=== PATIENT | female | born 1955 | race Caucasian/White ===

== ENCOUNTER 2021-09-08 14:50 | Emergency (ER) | payer MEDICARE, OTHER, SELFPAY ==
--- NOTE | ~2021-09-08 | XR_ITS ---
EXAMINATION: XR knee RT min 4V DATE: 09/08/2021 15:25 INDICATION: Right knee pain. Injury 6 days ago. TECHNIQUE: 4 views of right knee were obtained. COMPARISON: Right knee radiographs 02/09/2019 FINDINGS: Bone alignment is normal. No fracture. There is mild tricompartmental osteoarthritis. No kn ee joint effusion. IMPRESSION: 1. Mild right knee osteoarthritis. Reviewed, dictated and finalized at location A.
--- NOTE | 2021-09-08 14:59 | ED.LOWEXIN ---
HPI - Extremity Injury (Lower) General Stated Complaint: bilateral knee injury Time Seen by Provider: 09/08/21 15:06 Source: patient Mode of arrival: ambulatory Limitations: no limitations History of Present Illness HPI Narrative: Ms. Chatterjee is a 66-year-old female patient presenting to the clinic today with complaints of right knee pain/injury. She reports that she fell and landed on her bilateral knees 6 days ago. Reports she has a lot of bruising and swelling to the over the right knee. She is currently taking a blood thinner. Related Data Home Medications Medication Instructions Recorded Confirmed apixaban 5 mg tablet (Eliquis) 5 mg PO BID 09/08/21 09/08/21 atorvastatin 80 mg tablet 80 mg PO HS 09/08/21 09/08/21 celecoxib 200 mg capsule (Celebrex) 200 mg PO BID 09/08/21 09/08/21 estradiol 1 mg tablet 0.5 mg PO DAILY 09/08/21 09/08/21 fludrocortisone 0.1 mg tablet 0.1 mg PO BID 09/08/21 09/08/21 furosemide 20 mg tablet (Lasix) 20 mg PO DAILY 09/08/21 09/08/21 lisinopril 40 mg tablet 40 mg PO DAILY 09/08/21 09/08/21 magnesium 200 mg tablet 400 mg PO DAILY 09/08/21 09/08/21 meclizine 25 mg tablet 25 mg PO TID 09/08/21 09/08/21 omeprazole 40 mg capsule,delayed 40 mg PO DAILY 09/08/21 09/08/21 release potassium chloride 20 mEq 20 meq PO DAILY 09/08/21 09/08/21 tablet,extended release sotalol 80 mg tablet 40 mg BID 09/08/21 09/08/21 spironolactone 25 mg tablet 25 mg DAILY 09/08/21 09/08/21 tramadol 50 mg tablet (Ultram) 50 mg PO BID 09/08/21 09/08/21 vibegron 75 mg tablet (Gemtesa) 75 tablet DAILY 09/08/21 09/08/21 vitamins A,C,H-zgak-rotbil 7,160 1 tablet PO BID 09/08/21 09/08/21 unit-113 mg-100 unit tablet (PreserVision AREDS) Allergies Allergy/AdvReac Type Severity Reaction Status Date / Time No Known Allergies Allergy Verified 09/08/21 15:14 Review of Systems Review of Systems: Pertinent positives per HPI. Patient denies any fever, chills, rash, headache, visual changes, dizziness, cough, runny nose, sore throat, shortness of breath, chest pain, palpitations, nausea, vomiting, diarrhea, constipation, abdominal pain, or any urinary issues. Exam Narrative: General: Well-developed, obese, in no apparent distress Head: Normocephalic, atraumatic. Cardio: Regular rate and rhythm, s1 and s2 normal, no murmur appreciated. Resp: Clear to auscultation bilaterally, no rhonchi, rales, wheezing or rubs. Musculoskeletal: No deformity, tender to palpation over the right anterior knee with mild warmth redness, various stages of bruising to the right anterior knee and anterior and posterior leg, limited range of motion due to anterior knee swelling, muscle strength strong and equal, peripheral pulse strong, no lower extremity edema, no cyanosis, normal gait and station Course Course Emergency Course: This electronic medical record was dictated using voice recognition software and may contain some grammatical errors. Level of Care: Express Care Visit Vital Signs Vital signs: Vital signs reviewed MDM - Extremity Injury (Lower) MDM Narrative Medical decision making narrative: At the time of visit patient was resting comfortably on the exam chair. Appears to have a hematoma to the right anterior knee with different stages of bruising to the knee and anterior and posterior leg. She has tenderness with some warmth to palpation to the right anterior knee. I will get a knee x-ray to rule out any fracture however I feel that this is a hematoma. X-ray was negative for any fracture of the right knee. Supportive measures were discussed and patient voiced understanding of discharge instructions. Imaging Data Attestation: I personally reviewed and interpreted this imaging study as follows: My impression: Negative for fracture or malalignment, may have small knee effusion, knee osteoarthritis Radiologist's impression: [address] [address] XRay Report Signed Patient: Ericka
[2021-09-08 15:06] VITALS: BP 116/58; PULSE 80; RESP 18; TEMP 36.1; O2SAT 100
== END 2021-09-08 15:41 | disposition home or self-care (01) ==
PROVIDERS: Emergency Provider Nurse Practitioner Family; PCP Nurse Practitioner Family
DX: S80.01XA Contusion of right knee, initial encounter (principal); W19.XXXA Unspecified fall, initial encounter
CPT/HCPCS: 73564; 99213; G0463

== ENCOUNTER → 2022-02-23 11:01 | Outpatient (CLI) | payer MEDICARE, SELFPAY ==
--- NOTE | ~2022-02-23 | MM_ITS ---
EXAMINATION: MM screening glenn BI w nathalia HISTORY: Screening mammogram TECHNIQUE: Craniocaudal and mediolateral oblique 3-D tomosynthesis images were obtained and synthetic 2-D images were generated. CAD analysis was submitted and interpreted. COMPARISON: 04/09/2019 bilateral screening mammogram 08/10/2012 bilateral screening mammogram BREAST PARENCHYMAL COMPOSITION: FINDINGS: There is no evidence of suspicious mass, calcification, or architectural distortion to sugg est malignancy in either breast. There has been no suspicious interval change. IMPRESSION: 1. No mammographic evidence of malignancy. 2. Recommend routine screening mammography in one year. BI-RADS Category 1: Negative Reviewed, dictated and finalized at location A. T ASSISTANT
== END ==
PROVIDERS: PCP Nurse Practitioner Family; Visit Provider Obstetrics & Gynecology
DX: Z12.31 Encounter for screening mammogram for malignant neoplasm of breast (principal)
CPT/HCPCS: 77063; 77067

== ENCOUNTER → 2023-03-22 10:12 | Outpatient (CLI) | payer MEDICARE, SELFPAY ==
--- NOTE | ~2023-03-22 | XR_ITS ---
Clinical Indication: Syncope PA and lateral views of the chest: Comparison: 04/05/2013 Findings: Questionable minimal bibasilar haziness versus overlying soft tissues. Cardiomediastinal s ilhouette is within normal limits, with pacemaker device. Bones and soft tissues are unremarkable. Impression: Questionable minimal bibasilar pulmonary edema versus haziness due to overlying soft tissues. Pacemaker device. Reviewed, dictated and finalized at location . R THREAT ANALYST Impression: Questionable minimal bibasilar pulmonary edema versus haziness due to overlying soft tissues. Pacemaker device.
== END ==
PROVIDERS: PCP Internal Medicine Cardiovascular Disease; Visit Provider Internal Medicine Cardiovascular Disease
DX: R55 Syncope and collapse (principal); I49.5 Sick sinus syndrome; Z95.0 Presence of cardiac pacemaker
CPT/HCPCS: 71046

== ENCOUNTER 2024-03-31 14:15 | Emergency (ER) | payer MEDICARE, SELFPAY ==
--- NOTE | 2024-03-31 14:26 | ED.GENADULT ---
HPI - General Adult General Chief complaint: Wound/Laceration Stated complaint: LT Hand injury Time Seen by Provider: 03/31/24 14:26 Source: patient Mode of arrival: ambulatory Limitations: no limitations History of Present Illness HPI narrative: 69-year-old female patient presents to the [facility] with complaints of laceration to the left ring finger. Patient states she was cutting some butter and cut with a knife. Unknown of when her last tetanus shot was. Patient is on blood thinners Related Data Home Medications ?Medication ?Instructions ?Recorded ?Confirmed ?Last Taken ?Type apixaban 5 mg tablet (Eliquis) 5 mg PO BID 09/08/21 09/08/21 Unknown History atorvastatin 80 mg tablet 80 mg PO HS 09/08/21 09/08/21 Unknown History celecoxib 200 mg capsule (Celebrex) 200 mg PO BID 09/08/21 09/08/21 Unknown History estradiol 1 mg tablet 0.5 mg PO DAILY 09/08/21 09/08/21 Unknown History fludrocortisone 0.1 mg tablet 0.1 mg PO BID 09/08/21 09/08/21 Unknown History furosemide 20 mg tablet (Lasix) 20 mg PO DAILY 09/08/21 09/08/21 Unknown History lisinopril 40 mg tablet 40 mg PO DAILY 09/08/21 09/08/21 Unknown History magnesium 200 mg tablet 400 mg PO DAILY 09/08/21 09/08/21 Unknown History meclizine 25 mg tablet 25 mg PO TID 09/08/21 09/08/21 Unknown History omeprazole 40 mg capsule,delayed 40 mg PO DAILY 09/08/21 09/08/21 Unknown History release potassium chloride 20 mEq 20 meq PO DAILY 09/08/21 09/08/21 Unknown History tablet,extended release sotalol 80 mg tablet 40 mg BID 09/08/21 09/08/21 Unknown History spironolactone 25 mg tablet 25 mg DAILY 09/08/21 09/08/21 Unknown History tramadol 50 mg tablet (Ultram) 50 mg PO BID 09/08/21 09/08/21 Unknown History vibegron 75 mg tablet (Gemtesa) 75 tablet DAILY 09/08/21 09/08/21 Unknown History vitamins A,C,P-aiku-uduzah 2,148 1 tablet PO BID 09/08/21 09/08/21 Unknown History mcg-113 mg-45 mg-17.4 mg tablet (PreserVision AREDS) Allergies Allergy/AdvReac Type Severity Reaction Status Date / Time No Known Allergies Allergy Verified 03/31/24 14:56 Review of Systems Review of Systems: CONSTITUTIONAL: Denies fever, chills, or sweats. EYES: Denies visual changes, redness, or discharge. ENT: Denies rhinorrhea, congestion, sore throat, or otalgia. CARDIOVASCULAR: Denies chest pain, palpitations, or edema. RESPIRATORY: Denies cough or dyspnea. GASTROINTESTINAL: Denies abdominal pain, nausea, vomiting, or diarrhea. GENITOURINARY: Denies dysuria or hematuria. SKIN: Denies rash or itching. positive laceration to left ring finger MUSCULOSKELETAL: Denies back pain, joint pain, or myalgia. NEUROLOGIC: Denies headache, numbness, or weakness. PSYCHIATRIC: Denies anxiety or depression. PMFSH Comments At the time of my signature I agree with nursing past medical history, surgical, social, and family history. There is no relevant family history pertinent to the presenting complaint. Exam Narrative: GENERAL: Well-appearing, well-nourished, and in no acute distress. HEAD: Normocephalic, atraumatic. EYES: PERRLA and EOMI. ENT: Nares clear, no rhinorrhea or epistaxis. Mucous membranes moist. NECK: Supple. No lymphadenopathy CHEST: Clear to auscultation. No respiratory distress. HEART: Regular rate and rhythm. No murmur heard. Normal peripheral pulses. ABDOMEN: Soft, nontender, nondistended, normal active bowel sounds. EXTREMITIES: Normal range of motion. No edema. SKIN: Warm, dry, no rash. patient has approximately he less than 1 cm superficial laceration to the distal tip of the left ring finger. There is no fat involvement. It is actively bleeding due to blood thinners. Patient has good range of motion. NEURO: No focal deficits. Alert and oriented x3. Course Course Level of Care: Express Care Visit Vital Signs Vital signs: Vital Signs Temperature 36.4 C L 03/31/24 14:41 Pulse Rate 72 03/31/24 14:41 Respiratory Rate 20 03/31/24 14:41 Blood Pressure 134/68 03/31/24 14:41 Pulse Oximetry 98 03/31/24 14:41 Oxygen Delivery Room Air 03/31/24 14:41 Temperature 36.4 C L 03/31/24 14:41 Pulse Rate 72 03/31/24 14:41 Respiratory Rate 20 03/31/24 14:41 Blood Pressure 134/68 03/31/24 14:41 Pulse Oximetry 98 03/31/24 14:41 Oxygen Delivery Room Air 03/31/24 14:41 Vital signs reviewed. Procedures Laceration Laceration 1: Date: 03/31/24 Time: 15:35 Site: upper extremity Side (If applicable): left Size (cm): 0.5 Description: flap Depth: simple, single layer Local Anesthetic: none Pre-repair: wound explored, irrigated and irrigated extensively ====== Skin Level ====== Skin layer closed with: dermabond and steri strips Number of sutures: 3 ====== Subcutaneous Layer ====== ====== Muscle Layer ====== ====== Tendon Layer ====== Dressing: The Procedure was explained and verbal consent was obtained. Sterile drape and prep were done. Copious irrigation was done with saline and Shur-Clens and the wound was explored. There was no foreign body or deep structure injury noted. Patient had good range of motion under anesthesia. Wound edges were approximated with good alignment using Dermabond and reinforced with Steri-Strips. There were 3 s Steri-Strips placed. nonadherent dressing over it.. The patient tolerated the procedure well without adverse effects. Medical Decision Making MDM Narrative Medical decision making narrative: Plan care for patient is to clean the wound, update her tetanus shot. The wound appears very superficial I think that we can repair this with just flew in a couple of Steri-Strips. Patient is aware of plan of care denies any other questions or concerns at this time. Differential Diagnosis Differential Diagnosis: Differential diagnosis: Paronychia, felon, cellulitis, flexor tenosynovitis, mallet finger, boutonniere deformity, flexor tendons, dislocated digits, unstable fracture, unstable ligamentous injury, closed space infection, carpal tunnel syndrome, contusion. Vital Signs Vital Signs: Vital Signs Temperature 36.4 C L 03/31/24 14:41 Pulse Rate 72 03/31/24 14:41 Respiratory Rate 20 12/14/24 14:41 Blood Pressure 134/68 12/14/24 14:41 Pulse Oximetry 98 03/31/24 14:41 Oxygen Delivery Room Air 03/31/24 14:41 Temperature 36.4 C L 03/31/24 14:41 Pulse Rate 72 03/31/24 14:41 Respiratory Rate 20 03/31/24 14:41 Blood Pressure 134/68 03/31/24 14:41 Pulse Oximetry 98 03/31/24 14:41 Oxygen Delivery Room Air 03/31/24 14:41 Critical Care Time Critical Care Time Critical Care Time: No Discharge Plan Discharge Clinical Impression: Laceration of blood vessel of left ring finger Patient Disposition: Home, Self-Care Condition: Stable Instructions: Antibiotic Form, Finger Laceration (ED) Additional Instructions: -adhesive works like a bandage; do not use antibiotic onitment as it can break down the adhesive -You can shower while the adhesive is on your skin, but do not take a bath or soak or scrub the area for 7-10 days. Dry your skin by patting it gently with a towel. -The adhesive will peel off on its own; usually by 5-10days. If after 10 days, you still have adhesive on you, you can use antibiotic ointment or petroleum jelly to get it off. After you heal, you should protect the scar from the sun. Use sunscreen on the area or wear clothes or a hat that covers the scar. Follow up with your PCP is needed Patient Language: Polish Prescriptions: No Action celecoxib [Celebrex] 200 mg Capsule 200 mg PO BID atorvastatin 80 mg Tablet 80 mg PO HS sotalol 80 mg Tablet 40 mg BID omeprazole [Prilosec] 40 mg Capsule,Delayed Release(Dr/Ec) 40 mg PO DAILY tramadol [Ultram] 50 mg Tablet 50 mg PO BID spironolactone 25 mg Tablet 25 mg DAILY estradiol 1 mg Tablet 0.5 mg PO DAILY meclizine [Antivert] 25 mg Tablet 25 mg PO TID furosemide [Lasix] 20 mg Tablet 20 mg PO DAILY lisinopril 40 mg Tablet 40 mg PO DAILY fludrocortisone 0.1 mg Tablet 0.1 mg PO BID magnesium [magnesium gluconate] 200 mg Tablet 400 mg PO DAILY PreserVision AREDS 7,160 unit- 113 mg-100 unit Tablet 1 tablet PO BID Rx Instructions: administer with AM and PM meals Eliquis 5 mg Tablet 5 mg PO BID potassium chloride 20 mEq Tablet Extended Release 20 meq PO DAILY Gemtesa 75 mg tablet 75 tablet DAILY Follow-up/Referrals: HARSH,AURE CORONA [Primary Care Provider] - Time of Disposition: 15:32
[2024-03-31 14:41] VITALS: BP 134/68; PULSE 72; RESP 20; TEMP 36.4; O2SAT 98
[2024-03-31] MEDS: TETANUS,DIPHTHERIA,AC PERTUSSIS ADULT (0.5 ML) BOOSTRIX IM (15:42)
--- OUTSIDE RECORDS SUMMARY | 2024-04-04 19:39 | XMS_ITS | Continuity of Care Document ---
Author Organization [facility] Address [address] [place] [id number] Care Team Providers Care Electronics Hardware Design Engineer Name Role Phone Bianca Aggarwal Primary Care Physician [phone] Vernon Richey [facility] Encounter [facility] Financial Number [id number] Date(s): 08/03/21 - 08/03/[address] [id number] Discharge Disposition: Home or Self Care Attending Physician: Vernon Richey MD Allergies, Adverse Reactions, Alerts No Known Allergies Assessment and Plan Future Appointments Appointment Date:12/07/2021 11:00:00 AM Scheduled Provider:Vernon Richey MD Location:[facility] Appointment Type:CIMR EP Established Patient Immunizations Given and Recorded Vaccine Date Status Refusal Reason SARS-CoV-2 (COVID-19) ChAdOx1 vaccine 06/18/20 Rec orded SARS-CoV-2 (COVID-19) ChAdOx1 vaccine 05/28/20 Rec orded Medications alendronate 35 mg oral tablet 35 mg, 1 tablet(s), Oral, qWeek, 4 tablet(s), Tablet(s), 0 Start Date: 11/27/19 Status: Ordered Antivert 25 mg oral tablet 25 mg, 1 tablet(s), Oral, tid, PRN, 30 tablet(s), Tablet(s), 0, for dizziness Start Date: 09/06/16 Status: Ordered atorvastatin 40 mg oral tablet 40 mg, 1 tablet(s), Oral, daily, 30 tablet(s), Tablet(s), 0 Start Date: 09/06/16 Status: Ordered celecoxib 200 mg oral capsule 1 capsule(s), Oral, bid with meals, 180 capsule(s), 1, 0, Route to Pharmacy Electronically, [facility], NCPDP_ID-[id number], 170.3, cm, 10/27/2020 1101, Height, 97.9, kg, 10/27/2020 1101, Weight Start Date: 04/16/21 Status: Ordered Eliquis 5 mg oral tablet 5 mg, 1 tablet(s), Oral, bid, 60 tablet(s), Tablet(s), 0 Start Date: 09/06/16 Status: Ordered esomeprazole 40 mg oral delayed release capsule 40 mg, 1 capsule(s), Oral, daily before breakfast, 30 capsule(s), Capsule(s), 0 Start Date: 09/06/16 Status: Ordered estradiol 1.5 mg oral tablet 1 tablet, Oral, daily, 0 Start Date: 09/06/16 Status: Ordered fludrocortisone 0.1 mg oral tablet 0.1 mg, 1 tablet(s), Oral, tid, 30 tablet(s), Tablet(s), 0 Start Date: 09/06/16 Status: Ordered furosemide 0 Start Date: 08/03/21 Status: Ordered Gemtesa 75 mg oral tablet 75 mg, 1 tablet(s), Oral, daily, 0 Start Date: 08/03/21 Status: Ordered hydrOXYzine pamoate 25 mg oral capsule 25 mg, 1 capsule(s), Oral, [id number], PRN, 30 capsule(s), Capsule(s), 0, 0, pain, Print Requisition Start Date: 09/07/16 Status: Ordered Jc Potassium 99 oral tablet 99 mg, 1 tablet(s), Oral, daily, 0 Start Date: 09/06/16 Status: Ordered lisinopril 10 mg oral tablet 10 mg, 1 tablet(s), Oral, daily, 30 tablet(s), Tablet(s), 0 Start Date: 09/06/16 Status: Ordered magnesium oxide 400 mg oral tablet 400 mg, 1 tablet(s), Oral, daily, 14 tablet(s), Tablet(s), 0 Start Date: 08/08/18 Stop Date: 08/22/18 Status: Ordered Myrbetriq 50 mg oral tablet, extended release 50 mg, 1 tablet(s), Oral, daily, 30 tablet(s), Tablet CR, 0 Start Date: 08/08/18 Status: Ordered PreserVision AREDS 2 oral capsule bid, 0 Start Date: 03/21/18 Status: Ordered Sotalol HCL AF 40 mg, Oral, bid, 0 Start Date: 09/06/16 Status: Ordered traMADol 50 mg oral tablet 1 tablet(s), Oral, tid, PRN, 90 tablet(s), 0, 0, NEEDED FOR PAIN, Route to Pharmacy Electronically, [facility], WIPDP_[id number], 170.3, cm, 10/27/2020 1101, Height, 97.9, kg, 10/27/2020 1101, Weight Start Date: 04/16/21 Stop Date: 05/16/21 Status: Ordered VESIcare 10 mg oral tablet 10 mg, 1 tablet(s), Oral, daily, 30 tablet(s), Tablet(s), 0 Start Date: 09/06/16 Status: Ordered Xanax 0.25 mg oral tablet 0.25 mg, 1 tablet(s), Oral, daily, PRN, Tablet(s), 0, anxiety Start Date: 03/21/18 Status: Ordered Problem List Condition Effective Dates Status Health Status Inform ant HCC: Atrial fibrillation I48.91(Confirmed) Active Gall stones(Confirmed) Active IBS (irritable bowel syndrome)(Confirmed) Active Colon, diverticulosis(Confirmed) Active 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 on cardiac specialist(Confirmed) Active R53.83 Fatigue(Confirmed) Active Injury of plantar plate of r ight foot(Confirmed) Active History of [place] Islander measles(Confirmed) 1 Active Hammertoe(Confirmed) Active High cholesterol(Confirmed) Active E78.5 Hyperlipidemia(Confirmed) Active HBP (high blood pressure)(Confirmed) Active E87.6 Hypokalemia(Confirmed) Active M19.90 Arthritis(Confirmed) Active Arthralgia(Confirmed) Active Kidney stones(Confirmed) Active M79.1 Myalgia(Confirmed) Active Myositis(Confirmed) Active R00.2 Palpitation(Confirmed) Active M77.9 Tendonitis(Confirmed) Active E55.9 Vitamin D deficiency(Confirmed) Active 1states she has POHS due to [place] measles when she was 5 affecting her vision Diagnosis Diagnosis Type Effective Dates Health Status Cl inical Service Informant M19.90 Arthritis 08/03/21 Non-Specified M77.9 Tendonitis 08/03/21 Non-Specified Myositis 08/03/21 Non-Specified R53.83 Fatigue 4/18/22 Non-Specified M19.90 Arthritis 08/03/21 Non-Specified M77.9 Tendonitis 08/03/21 Non-Specified Myositis 08/03/21 Non-Specified R53.83 Fatigue 08/03/21 Non-Specified M19.90 Arthritis 08/03/21 Non-Specified M77.9 Tendonitis 08/03/21 Non-Specified Myositis 08/03/21 Non-Specified R53.83 Fatigue 08/03/21 Non-Specified M19.90 Arthritis 08/03/21 Non-Specified M77.9 Tendonitis 08/03/21 Non-Specified Myositis 08/03/21 Non-Specified R53.83 Fatigue 08/03/21 Non-Specified M19.90 Arthritis 08/03/21 Non-Specified M77.9 Tendonitis 08/03/21 Non-Specified Myositis 08/03/21 Non-Specified R53.83 Fatigue 08/03/21 Non-Specified M19.90 Arthritis 08/03/21 Non-Specified M77.9 Tendonitis 08/03/21 Non-Specified Myositis 08/03/21 Non-Specified R53.83 Fatigue 08/03/21 Non-Specified Procedures Procedure Date Related Diagnosis Body Site Status Procedure on lower leg 1 03/04/21 Completed Abdominal hysterectomy Co mpleted Arthroscopic knee operation 2 Completed Cholecystectomy Completed Coronary heart disease monitoring Completed foot bone spur Completed Heart rate monitoring Com pleted Laparoscopic adjustable lien abundio banding Completed Percutaneous extraction of k idney stone with fragmentation procedure Completed Radiofrequency ablation of l esion of heart Completed 1broken fibula 22 on left and 1 on right Results Laboratory List Name Date CBC with Differential 08/03/21 Comprehensive Metabolic Profile (CMP) Creatine Kinase (CPK (CK Total)) 08/03/21 Differential, Automated 08/03/21 Rheumatoid Factor, Quantitative 08/03/21 Sedimentation Rate (Sed Rate) 08/03/21 Most recent to oldest [Reference Range]: 1 Albumin [3.5-5.0 g/dL] 3.7 g/dL (08/03/21 11:43 AM) Alk Phos [38-126 U/L] 190 U/L *H* (08/03/21 11:43 AM) BUN [7-17 mg/dL] 18 mg/dL *H* (08/03/21:43 AM) Calcium [8.4-10.2 mg/dL] 8.2 mg/dL *L* (08/03/2143 AM) Chloride [98-107 mmol/L] 101 mmol/L (08/03/21:43 AM) CK, Total [30-135 U/L] 29 U/L *L* (08/03/21 AM) CO2 [22-30 mmol/L] 33 mmol/L *H* (08/03/2143 AM) Glucose [74-106 mg/dL] 98 mg/dL (08/03/21:43 AM) Potassium [3.5-4.9 mmol/L] 3.2 mmol/L *L* (08/03/21: AM) Sodium [137-145 mmol/L] 139 mmol/L (08/03/21:43 AM) Protein, Total [6.5-8.6 g/dL] 6.9 g/dL (08/03/21:43 AM) Baso # [0.0-0.2 K/uL] 0.0 K/uL (08/03/21 11:43 AM) Eos # [0.0-0.7 K/uL] 0.1 K/uL (08/03/21:43 AM) Hematocrit [35.5-44.0 %] 40.3 % (08/03/21:43 AM) Lymph % 26 % (08/03/21:43 AM) Lymph # [0.7-4.5 K/uL] 1.5 K/uL (08/03/21:43 AM) MCHC [31.5-35.5 g/dL] 32.5 g/dL (08/03/21 11:43 AM) MCH [27.2-32.6 pg] 30.5 pg (08/03/21 11:43 AM) MCV [82.0-99.0 fL] 93.7 fL (08/03/21 11:43 AM) [place] # [0.1-1.3 K/uL] 0.6 K/uL (08/03/21 11:43 AM) MPV [9.3-12.4 fL] 9.6 fL (08/03/21:43 AM) Neutro # [1.9-7.0 K/uL] 3.4 K/uL (08/03/2143 AM) Platelet [140-350 K/uL] 282 K/uL (08/03/21:43 AM) RBC [3.90-4.90 M/uL] 4.30 M/uL (08/03/21:43 AM) RDW [11.5-14.5 %] 14.0 % (08/03/21:43 AM) Sed Rate [0-30 mm/hr] 16 mm/hr (08/03/21:43 AM) WBC [4.3-10.0 K/uL] 5.6 K/uL (08/03/21:43 AM) Neutro % 61 % (08/03/21:43 AM) [place] % 10 % (08/03/2143 AM) Eos % 2 % (08/03/2143 AM) Baso % 0 % (08/03/21:43 AM) Nucleated RBCs [0-0 %] 0 % (08/03/21:43 AM) AST [14-36 U/L] 32 U/L (08/03/21:43 AM) Bilirubin, Total [0.2-1.3 mg/dL] 0.5 mg/ dL (08/03/21:43 AM) Creatinine [0.5-1.0 mg/dL] 0.6 mg/dL (08/03/2143 AM) Hemoglobin [11.8-14.8 g/dL] 13.1 g/dL (08/03/21:43 AM) eGFR(4vMDRD) [>=60 mL/min/1.73m2] >60 mL /min/1.73m2 (08/03/21:43 AM) eCrCl(C-Gault) 1.4 mL/min/kg (08/03/2143 AM) Immature Gran % [0.0-0.5 %] 0.2 % (08/03/21:43 AM) Differential Type Automated (08/03/21 AM) Rheumatoid Factor [<14.0 IU/mL] <10.0 IU /mL 1 (08/03/21 11:43 AM) Anion Gap [7-16 mmol/L] 5 mmol/L *L* (08/03/21 11:43 AM) ALT [<=35 U/L] 17 U/L (08/03/21 11:43 AM) 1Result Comment: Performed At: [facility] [id number] Virginia Hall PhD Ph:[phone] Social History Social History Type Response Alcohol Never alcohol user Substance Abuse Never drug user Smoking Status Never smoker;Never; Tobacco Cessation Counseling Requested N/A entered on: 08/03/21 Sex Care Team Personnel Name: Bianca Aggarwal NP Address: [facility] [place] [address] [place] Name: Vernon Richey MD Address: [address] [place] [address]
--- OUTSIDE RECORDS SUMMARY | 2024-04-04 19:39 | XMS_ITS | Continuity of Care Document ---
Author Organization [facility] [address] Address [address] [facility] [address], [place] [id number] Care Team Providers Care E Business Manager Name Role Phone Chloe House Alayna Primary Care Physician Encounter [facility] Financial Number [id number] Date(s): 01/24/24 - 01/24/24 [facility] [address] [address], [place] [id number] Encounter Diagnosis M19.90 Arthritis(Discharge Diagnosis) - 01/24/24 M79.1 Myalgia(Discharge Diagnosis) - 01/24/24 R53.83 Fatigue(Discharge Diagnosis) - 01/24/24 Bursitis(Discharge Diagnosis) - 01/24/24 M77.9 Tendonitis(Discharge Diagnosis) - 01/24/24 Discharge Disposition: Home or Self Care Attending Physician: Vernon Richey MD Allergies, Adverse Reactions, Alerts Substance Criticality Severity Reaction Reaction Severity Status Latex Rash Active iodine Active Assessment and Plan Future Appointments Appointment Date:06/27/2024 10:30:00 AM Scheduled Provider:Roger Scales MD Location:[facility] Appointment Type:[facility] EP Established Patient Appointment Date:08/21/2024 11:00:00 AM Scheduled Provider:Vernon Richey MD Location:[facility] Appointment Type:[facility] EP Established Patient Appointment Date:12/07/2024 11:45:00 AM Scheduled Provider:Grayson Condon MD Location:[facility] Appointment Type:[facility] EP Established Patient Immunizations Given and Recorded Vaccine Date Status Refusal Reason SARS-CoV-2 (COVID-19) ChAdOx1 vaccine 06/18/20 Rec orded SARS-CoV-2 (COVID-19) ChAdOx1 vaccine 05/28/20 Rec orded Medications alendronate 35 mg oral tablet 35 mg, 1 tablet(s), Oral, qWeek, 12 tablet(s), Tablet(s), 0 Start Date: 12/02/23 Status: Ordered Antivert 25 mg oral tablet 25 mg, 1 tablet(s), Oral, tid, PRN, 30 tablet(s), Tablet(s), 0, for dizziness Start Date: 09/06/16 Status: Ordered celecoxib 200 mg oral capsule 200 mg, 1 capsule(s), Oral, PRN, 10 capsule(s), Capsule(s), 0, for pain, BID as needed Start Date: 08/24/23 Status: Ordered Eliquis 5 mg oral tablet 5 mg, 1 tablet(s), Oral, bid, 180 tablet(s), Tablet(s), 0 Start Date: 08/24/23 Status: Ordered estradiol 1.5 mg oral tablet 1 tablet, Oral, daily, 0 Start Date: 09/06/16 Status: Ordered Gemtesa 75 mg oral tablet 75 mg, 1 tablet(s), Oral, daily, 0 Start Date: 08/03/21 Status: Ordered Lasix 20 mg oral tablet 20 mg, 1 tablet(s), Oral, daily, 0 Start Date: 06/24/23 Status: Ordered lisinopril 10 mg oral tablet 10 mg, 1 tablet(s), Oral, daily, 100 tablet(s), Tablet(s), 0 Start Date: 08/24/23 Status: Ordered Metoprolol Succinate ER 25 mg oral tablet, extended release 25 mg, 1 tablet(s), Oral, bid, 180 tablet(s), Tablet CR, 4, 4, Take an extra 25 mg q 4 hours PRN atrial fibrillation., Route to Pharmacy Electronically, [facility], [id number], 170.2, cm, 10/25/23 16:08:00 CDT, Height, 102, kg, 10/25/23 16:08:00 CDT, Weight Start Date: 10/25/23 Status: Ordered Potassium Chloride (Eqv-K-Tab) 20 mEq oral tablet, extended release 20 mEq, 1 tablet(s), Oral, as needed, 180 tablet(s), Tablet CR, 0, 1 time daily, 2nd tablet if needed. Start Date: 08/24/23 Status: Ordered PreserVision AREDS 2 oral capsule bid, 0 Start Date: 03/21/18 Status: Ordered Slow-Mag 71.5 mg-119 mg oral delayed release tablet 2 tablet(s), Oral, qhs, 180 tablet(s), 3, 3, Route to Pharmacy Electronically, [facility], [id number], 170.18, cm, 12/26/23 12:09:00 CDT, Height, 102.7, kg, 12/26/23 12:09:00 CDT, Weight Start Date: 01/12/24 Status: Ordered spironolactone 25 mg oral tablet 25 mg, 1 tablet(s), Oral, daily, 90 tablet(s), Tablet(s), 3, 3, Route to Pharmacy Electronically, [place] [id number], [id number]_[id number], 170.2, cm, 08/24/23 7:14:00 CDT, Height, 104.7, kg, 08/24/23 7:14:00 CDT, Weight Start Date: 09/23/23 Stop Date: 09/17/24 Status: Ordered traMADol 50 mg oral tablet 50 mg, 1 tablet(s), Oral, bid, 0 Start Date: 12/26/23 Status: Ordered Zepbound 2.5 mg/0.5 mL subcutaneous solution 2.5 mg, SubQ, weekly, 4 each, Injection, 0, 0, Route to Pharmacy Electronically, [place] [address], [id number]_[id number], 170.18, cm, 12/26/23 12:09:00 CDT, Height, 102.7, kg, 12/26/23 12:09:00 CDT, Weight Start Date: 01/11/24 Status: Ordered Problem List Condition Confirmation Course Effective Dates Status H ealth Status Informant HCC: Atrial fibrillation I48.91 Confirmed Active Obesity (BMI 30-39.9) Confirmed Active Bursitis Confirmed Active Pacemaker Confirmed Active Gall stones Confirmed Active IBS (irritable bowel syndrome) Confirmed Active Leg cramps Confirmed Active Pacemaker lead malfunction Confirmed Active Colon, diverticulosis Confirmed Active Dizziness Confirmed Active 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 on pharmacy 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 Confirmed Active R53.83 Fatigue Confirmed Active Injury of plantar plate of right foot Confirmed Active History of Iraqi measles 1 Confirmed Active Hammertoe Confirmed Active Cardiac murmur Confirmed Active History of syncope Confirmed Active E78.5 Hyperlipidemia Confirmed Active HTN (hypertension) Confirmed Active E87.6 Hypokalemia Confirmed Active M19.90 Arthritis Confirmed Active Arthralgia Confirmed Active Kidney stones Confirmed Active Light headedness Confirmed Active Chronic anticoagulation Confirmed Active Mild aortic stenosis Confirmed Active M79.1 Myalgia Confirmed Active Myositis Confirmed Active Orthostasis Confirmed Active R00.2 Palpitation Confirmed Active Paroxysmal atrial fibrillation Confirmed Active Syncope Confirmed Active M77.9 Tendonitis Confirmed Active E55.9 Vitamin D deficiency Confirmed Active 1states she has POHS due to welsh measles when she was 5 affecting her vision Procedures Procedure Date Related Diagnosis Body Site Status Procedure on lower leg 1 03/04/21 Completed Abdominal hysterectomy Co mpleted Arthroscopic knee operation 2 Completed Cardiac pacemaker procedure Completed Cholecystectomy Completed Coronary heart disease monitoring Completed foot bone spur Completed Heart rate monitoring Com pleted Implantation of cardiac pacemaker Completed Laparoscopic adjustable lien abundio banding Completed Percutaneous extraction of k idney stone with fragmentation procedure Completed Radiofrequency ablation of l esion of heart Completed 1broken fibula 22 on left and 1 on right Vital Signs Most recent to oldest [Reference Range]: 1 Temperature Temporal Artery [35.8-38 Deg C] 36.0 DegC (01/24/24 8:41 AM) Peripheral Pulse Rate [60-100 bpm] 77 bp m (01/24/24 8:41 AM) Blood Pressure [89-139/60-90 mm Hg] 120/ 80mm Hg (01/24/24 8:41 AM) Height 170.18 cm (01/24/24 8:41 AM) Weight 101.5 kg (01/24/24 8:41 AM) Social History Social History Type Response Alcohol Never alcohol user Substance Abuse Never drug user Smoking Status Never smoker;Never; Tobacco Cessation Counseling Requested N/A entered on: 08/09/22 Sex Note * [facility] Deputy Director: PERFORM Event Display: ROI_Correspondence Authored Date: [id number] * CPDI, User: PERFORM Event Display: ROI_Correspondence Authored Date: [id number] * Event Display: ROI_Correspondence Authored Date: [id number] Internal medicine Outpatient Note * Vernon Richey MD: PERFORM Event Display: Internal Medicine Office/Clinic Note Authored Date: [id number] Patient Information Name:KRISTEL HASSAN Address: [address] [place] [address] [place], [place] [id number] Sex:Female Date of :1955 Emergency Contact:SOFIA TESFAYE Location:[facility] [address] Registration Date and Time:01/24/2024 11:10 CDT Primary Care Physician: Chloe House VETERINARY X RAY OPERATOR, Attending Physician: Vernon Richey MD, Chief Complaint follow up History of Present Illness RHEUMATOLOGY NOTE ?? LUNDY ISSUES Arthralgia Myalgia Tendinitis Fatigue DJD Irritable bowel syndrome History of atrial fibrillation Hyperlipidemia Vitamin D deficiency SORE ILIO TIBIAL BAND ?? SHE BROKE LEFT FIBULA,,,, BOTH LEGS HURT AND ARE SORE ?? PCP,,,,,,,,,,,,,,,,,,,,,,, [facility],,,,,[facility],,,,,[facility] RHEUM ,,,,,,,,,,,,,,,, [facility] ,,,,,,,,,,,,,,,, [facility] ,,,,,,, VARDE ?? HISTORY of COMPLAINT Nature of complaint,,,,??MULTIPLE ISSUES Quality,,,,,,,,,,,,,,,,,,,,,,,,?? SEE BELOW FOR DISCUSSION AND PLAN FOR EACH ISSUE Severity,,,,,,,,,,,,,,,,,,,,,,,?? SIGNIFICANT RISK ?? The patient presents today for evaluation for multiple active medical problems. The problems addressed are noted in the assessment section below. All medications will be reviewed with the patient. The risks to the patient and the the severity of the problems will be documented below. Laboratory studies and Imaging Studies will be ordered as needed.?THE ENTIRE HPI SECTION HAS BEEN REVIEWED AND UPDATED FOR THIS VISIT. ?? Labs Rheumatoid Factor: <10.0 (08/09/22) RF Screen: Negative (10/27/20) Cyclic Citrullinated Peptide Ig (12/17/21) Sed Rate: 12 mm/hr (08/09/22) C3: 131 (08/09/22) C4: 28 (08/09/22) Uric Acid.: 3.6 mg/dL (11/29/19) Uric Acid: 4.6 mg/dL (06/16/20) HLA-B27: Negative (06/09/20) BROOK Screen: Positive Abnormal (08/09/22) ?? DELLE Other Doctors: Primary Care [facility] NP. Rheumatology??SERGIO. Cardiology .....now LENI,,,AND??,,GRAYSON CONDON Gastroenterology??INDERJIT. OB-POPCORN ATTENDANT??JAD. Ortho [facility]?, SOLO ?? Review of Systems General Weight Change >10lbs: No ?Fever: No ?Fatigue: Yes ?Difficulty Sleeping: No ?Blood Transfusion: No?Psych/Social Feeling blue/discouraged: No ?High anxiety/stress: No ?Loss of friends: No ?Feeling life has no purpose: No ?Feeling others are talking about you: No ?Feeling fear: No ?Hearing voices: No ?Marital or relationship problems: No ?filter tender jelly awakenings: No?Head & Neck ROS Visual Changes (Not Glasses): No ?Dizziness: Yes ?Double vision: No ?Sinus problems: No ?Frequent persistent nosebleeds: No ?Ear pain: No ?Trouble hearing: No ?Ringingin Ears: No ?Hoarseness: No ?Persistent sore throat: No ?Mouth sores: No ?Swollen glands (Frequent): No?Kidney/Bladder UTI: No ?Urinary Incontinence: No ?Urinary Hesitancy: No ?Frequent Urination: No ?Frequent urination at night: No ?Difficulty urinating: No ?Urinary Urgency: No ?Urinary Retention: No ?Blood in urine: No?Respiratory/Lungs Stop breathing during sleep: No ?Shortness of Breath: No ?Coughing up blood: No ?Wheezing: No ?Cough.: No ?Sore Throat: No ?Snoring: No ?Daytime sleepiness: No?Skeletal Gout: No ?Back Pain (Major): No ?Neck Pain (Major): No ?Weakness of arm or leg: No ?Joints Swelling/Stiffness: Yes ?Deformities of Back/Extremities: No ?Leg swelling: No ?Edema: No?Heart/Vascular Chest discomfort/tightness: No ?Irregular rapid heart beat: No ?Smothering feeling at night: No ?Ankle swelling: Yes ?Light headed: No ?Fainting episodes: No ?Varicose Veins: No ?Leg Pain with Walking: No ?Color/Temperature Changes of Extremities: No ?Leg Swelling ROS: No?Neuro Numbness or tingling: No ?Severe frequent headaches: No ?Abnormal coordination: No ?Trouble with speech: No ?Forgetfulness/confusion: No?Stomach/Bowel Black/Bloody stools: No ?Nausea/Vomiting (Frequent): No ?Frequent heart burn/acid (GERD): No ?Abdominal pain.: No ?Diarrhea (Frequent): No ?Constipation.: No ?Difficulty swallowing: No ?Vomiting blood: No?Skin & Hair Changes in hair/hair loss: No ?Major skin problems: No ?Wounds that will not heal: No ?Persistent rash: No ?Changes in moles: No?Reproduction Inability to reach climax: No ?Infertility: No ?Painful intercourse: No ?Decreased sexual desire: No ?Sexually Transmitted Diseases: No?Women Breast pain/lumps: No ?Pelvic Pain: No ?Vaginal discharge: No ?Vaginal dryness: No ?Frequent sweats/hot flashes: No ?Menstrual problems: No ?Menopause: No ? Problems: No ?Baby weighing 9lbs or more: No? Vitals and Measurements Vital Signs Height: 170.18 cm Height Inches Conversion: 67 Weight: 101.5 kg Weight in Pounds (kg conversion): 223.3 Body Surface Area: 2.1905 m2 Body Mass Index: 35.05 kg/m2 Temperature Temporal Artery: 36 DegC Systolic Blood Pressure: 120 mm Hg Diastolic Blood Pressure: 80 mm Hg Peripheral Pulse Rate: 77 bpm Oxygen Saturation: 99 % Primary Pain Comments: unless a flare up HRA Pain Present: Yes Physical Exam ? Examination:?? Rheumatology:?? CERVICAL SPINES:??normal range of motion,??normal flexion and extension,??normal rotations.?? THORACIC SPINE:??Normal examination. No swelling or tenderness. Normal ROM.?? SACROILIAC:??No tenderness or spasm.?? LUMBAR SPINES:??normal forward and lateral bending,??no sacroiliac joint tenderness,??SLR unremarkable.?? UPPER EXTREMITY:??Bilateral examination. Mild swelling and tenderness. Mild decrease in ROM??.?? LOWER EXTREMITY:??Bilateral examination. Mild swelling and tenderness. Mild decrease in ROM.?? SHOULDERS:??Bilateral exam. Mild swelling and tenderness. Mild decrease in ROM.?? ELBOWS:??Bilateral examination. Mild swelling and tenderness. Mild decrease in ROM.?? WRISTS: Bilateral examination. Mild swelling and tenderness. Mild decrease in ROM.?? HANDS:??Bilateral examination. DIP, PIP, MCP, Wrist, Thumb evaluated. Mild swelling and tenderness.Mild decrease in ROM.?? HIP PAIN, STIFFNESS,,,SEE SCANNED HIP IMAGING FROM [facility] JUST HAD LEFT HIP X RAY HIPS:??Bilateral examination. Mild swelling and tenderness. Mild decrease in ROM. No trochanteric bursitis.?? KNEES:??Bilateral examination. Mild swelling and tenderness. Mild decrease in ROM.?? ANKLES:??Bilateral examination. Mild swelling and tenderness. Mild decrease in ROM.?? FEET:??Bilateral exam is done. Midfoot, MTP, IP toes evaluated. Mild swelling and tenderness. Mild decrease in range of motion.?? FIBROMYALGIA TENDER POINTS:??The 18 fibromyalgia trigger points were tested and were found to be negative. The count is 0/18.?Examination:?? General Examination::?? GENERAL??Patient appears well and healthy, NAD. Female Patient.?? lung,,,,,,clear card,,,,,, S1 S2,,,,,,,new pacemaker,,,,.?? LYMPH??Bilaterally negative lymph nodes: Cervical (Anterior and Posterior chains), Axillary, Supraclavicular, Groin.?? EXTREMITY??No cyanosis, clubbing, or edema.?? MUSCULOSKELETAL??No kyphosis. No scoliosis. No tenderness. No muscle atrophy or spasm.?? SKIN??No rashes.??No skin lesions noted.?? NEUROLOGIC??No focal deficits. Motor normal 5/5, upper and lower extremity. Sensory normal. No tremor or cogwheeling..? Assessment/Plan 1.??M1.90 Arthritis WATCH FOR PROGRESSION OF ARTHRITIS AND SYNOVITIS CHECK LAB REVIEW RX 2.??M79.1 Myalgia CHECK CK CHECK FOR WEAKNESS AND TENDERNESS 3.??R53.83 Fatigue CHECK LAB FOR NEW UNDERLYING ISSUES 4.??Bursitis WATCH FOR BURSITIS OF HIP AND SHOULDER 5.??M77.9 Tendonitis LOW IMPACT EXERCISE YOGA WATER EXERCISE Orders (Last 48 Hours): ???BROOK Screen w/Reflex to Titer/Pattern(BROOK Screen w/Rflx to Ttr/Ptrn - [facility]), 01/24/24, Blood, ROUTINE, Routine, Order for Future Visit, Nurse Collect, Print Label, M1.90 Arthritis M79.1 Myalgia R53.83 Fatigue Bursitis M77.9 Tendonitis, Not Required, Hold Until Collected ???C3 Complement, 01/24/24, Blood, ROUTINE, Routine, Order for Future Visit, Nurse Collect, Print Label, M19.90 Arthritis M79.1 Myalgia R53.83 Fatigue Bursitis M77.9 Tendonitis, Not Required,Hold Until Collected ???C4 Complement, 01/24/24, Blood, ROUTINE, Routine, Order for Future Visit, Nurse Collect, Print Label, M19.90 Arthritis M79.1 Myalgia R53.83 Fatigue Bursitis M77.9 Tendonitis, Not Required,Hold Until Collected ???CBC with Differential, 01/24/24, Blood, ROUTINE, Routine, Order for Future Visit, Nurse Collect,Print Label, M19.90 Arthritis M79.1 Myalgia R53.83 Fatigue Bursitis M77.9 Tendonitis, Hold Until Collected ???Comprehensive Metabolic Profile(CMP), 01/24/24, Blood, ROUTINE, Routine, Order for Future Visit,Nurse Collect, Print Label, M19.90 Arthritis M79.1 Myalgia R53.83 Fatigue Bursitis M77.9 Tendonitis, Not Required, Hold Until Collected ???Creatine Kinase(CPK (CK Total)), 01/24/24, Blood, ROUTINE, Routine, Order for Future Visit, Nurse Collect, Print Label, M19.90 Arthritis M79.1 Myalgia R53.83 Fatigue Bursitis M77.9 Tendonitis, Not Required, Hold Until Collected ???Cyclic Citrullinated Peptide (CCP)(CCP), 01/24/24, Blood, ROUTINE, Routine, Order for Future Visit, Nurse Collect, Print Label, M19.90 Arthritis M79.1 Myalgia R53.83 Fatigue Bursitis M77.9Tendonitis, Not Required, Hold Until Collected ???Magnesium Level, 01/24/24, Blood, ROUTINE, Routine, Order for Future Visit, Nurse Collect, PrintLabel, M19.90 Arthritis M79.1 Myalgia R53.83 Fatigue Bursitis M77.9 Tendonitis, Not Required, Hold Until Collected ???Rheumatoid Factor, Quantitative, 01/24/24, Blood, ROUTINE, Routine, Order for Future Visit, Nurse Collect, Print Label, M19.90 Arthritis M79.1 Myalgia R53.83 Fatigue Bursitis M77.9 Tendonitis, Not Required, Hold Until Collected ???Sedimentation Rate(Sed Rate), 01/24/24, Blood, ROUTINE, Routine, Order for Future Visit, Nurse Collect, Print Label, M19.90 Arthritis M79.1 Myalgia R53.83 Fatigue Bursitis M77.9 Tendonitis, Not Required, Hold Until Collected ?? We are going to address multiple serious medial issues as noted above. This evaluation will requirelaboratory and other testing. Those tests will have to be evaluated carefully and the appropriate literature reviewed. The patient's other physicians will be consulted as necessary. The data complexity is extensive. Management options are extensive. Therapy options are extensive. Literature review was done using text and internet sources. Risk to the patient is extensive. Old records were reviewed. The patient will be contacted by phone or letter when data is received.? LETTER COMMUNICATION IS DONE FOR ALL DATA. ?? Please see the orders for details. ?? A COMPLETE CHART REVIEW AND CHART PREP WAS DONE. EARLIER DATA WAS REVIEWED.? DIAGNOSES ADDRESSED ARE NOTED ABOVE WITH AN INDIVIDUAL COMMENT ON HOW THE PROBLEM WAS ADDRESSED DURING THE VISIT ?? NEW DATA REVIEWED.?? SEE ORDERS FOR DETAILS.? ANALYZE NEW DATA ??IN DETAIL. ?? RISK TO THE PATIENT IS HIGH ? Future Order Details BROOK Screen w/Reflex to Titer/Pattern, 01/24/24, Blood, ROUTINE, Routine, Order for Future Visit, Nurse Collect, Print Label, M19.90 Arthritis M79.1 Myalgia R53.83 Fatigue Bursitis M77.9 Tendonitis, Not Required, Hold Until Collected C3 Complement, 01/24/24, Blood, ROUTINE, Routine, Order for Future Visit, Nurse Collect, Print Label, M19.90 Arthritis M79.1 Myalgia R53.83 Fatigue Bursitis M77.9 Tendonitis, Not Required, Hold Until Collected C4 Complement, 01/24/24, Blood, ROUTINE, Routine, Order for Future Visit, Nurse Collect, Print Label, M19.90 Arthritis M79.1 Myalgia R53.83 Fatigue Bursitis M77.9 Tendonitis, Not Required, Hold Until Collected CBC with Differential, 01/24/24, Blood, ROUTINE, Routine, Order for Future Visit, Nurse Collect, Print Label, M19.90 Arthritis M79.1 Myalgia R53.83 Fatigue Bursitis M77.9 Tendonitis, Hold Until Collected Comprehensive Metabolic Profile, 01/24/24, Blood, ROUTINE, Routine, Order for Future Visit, Nurse Collect, Print Label, M19.90 Arthritis M79.1 Myalgia R53.83 Fatigue Bursitis M77.9 Tendonitis, Not Required, Hold Until Collected Creatine Kinase, 01/24/24, Blood, ROUTINE, Routine, Order for Future Visit, Nurse Collect, Print Label, M19.90 Arthritis M79.1 Myalgia R53.83 Fatigue Bursitis M77.9 Tendonitis, Not Required, Hold Until Collected Cyclic Citrullinated Peptide (CCP), 01/24/24, Blood, ROUTINE, Routine, Order for Future Visit, Nurse Collect, Print Label, M19.90 Arthritis M79.1 Myalgia R53.83 Fatigue Bursitis M77.9 Tendonitis, Not Required, Hold Until Collected Magnesium Level, 01/24/24, Blood, ROUTINE, Routine, Order for Future Visit, Nurse Collect, Print Label, M19.90 Arthritis M79.1 Myalgia R53.83 Fatigue Bursitis M77.9 Tendonitis, Not Required, Hold Until Collected Rheumatoid Factor, Quantitative, 01/24/24, Blood, ROUTINE, Routine, Order for Future Visit, Nurse Collect, Print Label, M19.90 Arthritis M79.1 Myalgia R53.83 Fatigue Bursitis M77.9 Tendonitis, Not Required, Hold Until Collected Sedimentation Rate, 01/24/24, Blood, ROUTINE, Routine, Order for Future Visit, Nurse Collect, PrintLabel, M19.90 Arthritis M79.1 Myalgia R53.83 Fatigue Bursitis M77.9 Tendonitis, Not Required, Hold Until Collected Problem List/Past Medical History Ongoing Arthralgia Bursitis Cardiac murmur Chronic anticoagulation Colon, diverticulosis Dizziness E55.9 Vitamin D deficiency E78.5 Hyperlipidemia E87.6 Hypokalemia Gall stones Hammertoe HCC: Atrial fibrillation I48.91 History of Iraqi measles History of syncope HTN (hypertension) IBS (irritable bowel syndrome) Injury of plantar plate of right foot Kidney stones Leg cramps Light headedness M19.90 Arthritis M77.9 Tendonitis M79.1 Myalgia Mild aortic stenosis Myositis Obesity (BMI 30-39.9) Orthostasis 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 on pharmacy student Pacemaker Pacemaker lead malfunction Paroxysmal atrial fibrillation R00.2 Palpitation R53.83 Fatigue Syncope Historical No qualifying data Procedure/Surgical History ???Procedure on lower leg (03/04/2021)???Abdominal hysterectomy???Arthroscopic knee operation???Cardiac pacemaker procedure???Cholecystectomy???Coronary heart disease monitoring???foot bone spur???Heart rate monitoring???Implantation of cardiac pacemaker???Laparoscopic adjustable gastric banding???Percutaneous extraction of kidney stone with fragmentation procedure???Radiofrequency ablation of lesion of heart Medications Unchanged alendronate (alendronate 35 mg oral tablet)1 tablet(s) By mouth every week. apixaban (Eliquis 5 mg oral tablet)1 tablet(s) By mouth 2 times a day. calcium carbonate-magnesium chloride (Slow-Mag 71.5 mg-119 mg oral delayed release tablet)2 tablet(s) By mouth every evening at bedtime. Refills: 3. celecoxib (celecoxib 200 mg oral capsule)1 capsule(s) By mouth as needed for pain. BID as needed. estradiol (estradiol 1.5 mg oral tablet)1 tablet By mouth daily. furosemide (Lasix 20 mg oral tablet)1 tablet(s) By mouth daily. lisinopril (lisinopril 10 mg oral tablet)1 tablet(s) By mouth daily. meclizine (Antivert 25 mg oral tablet)1 tablet(s) By mouth 3 times a day as needed for dizziness. metoprolol (Metoprolol Succinate ER 25 mg oral tablet, extended release)1 tablet(s) By mouth 2 times a day. Take an extra 25 mg q 4 hours PRN atrial fibrillation.. Refills: 4. multivitamin with minerals (PreserVision AREDS 2 oral capsule)2 times a day. potassium chloride (Potassium Chloride (Eqv-K-Tab) 20 mEq oral tablet, extended release)1 tablet(s)By mouth as needed. 1 time daily, 2nd tablet if needed.. spironolactone (spironolactone 25 mg oral tablet)1 tablet(s) By mouth daily for 90 day(s). Refills:3. tirzepatide (Zepbound 2.5 mg/0.5 mL subcutaneous solution)2.5 Milligram Subcutaneous every week. Refills: 0. traMADol (traMADol 50 mg oral tablet)1 tablet(s) By mouth 2 times a day. vibegron (Gemtesa 75 mg oral tablet)1 tablet(s) By mouth daily. Immunizations Vaccine Date [id number] (COVID-19) ChAdOx1 vaccine 06/18/2020 Recorded SARS-CoV-2 (COVID-19) ChAdOx1 vaccine 05/28/2020 Recorded Allergies Latex??(Rash) iodine Social History Alcohol Never alcohol user, 08/09/2022 Substance Abuse Never drug user, 08/09/2022 Tobacco Never smoker, Smokeless Tobacco use: Never. N/A Cessation Counseling., 08/09/2022 Family History ?Father ?Positive ?Aortic valve stenosis. ?Father ?Positive ?Cardiac arrest ?Brother ?Positive ?Heart disease ?Mother ?Positive ?Aneurysm ?Mother ?Positive ?Hypertension ?Mother ?Positive ?Heart disease ?Father ?Positive ?Myocardial infarction ?Father ?Positive ?Aortic valve disorder ?Father ?Positive ?Heart disease ? POC Results Event Name?? Event Result?? Date/Time?? Oxygen Saturation 99 % 10/08/24 08:41:00 ? Voice to Text Technology Disclaimer This note may contain text inserted via Dragon or other voice to text assistive technology and senior datastage developer, variances may occur. Outpatient Summary note * Judy Guillaume RN: PERFORM Event Display: Ambulatory Patient Summary Authored Date: [id number] KRISTEL HASSAN :1955 Visit Date:01/24/2024 [facility] Visit Instructions Your Diagnosis M19.90 Arthritis M79.1 Myalgia R53.83 Fatigue Bursitis M77.9 Tendonitis Your Care Team Attending Physician - Vernon Richey MD Primary Care Physician - Chloe House NP Procedure History ???Procedure on lower leg (03/04/2021)???Abdominal hysterectomy???Arthroscopic knee operation???Cardiac pacemaker procedure???Cholecystectomy???Coronary heart disease monitoring???foot bone spur???Heart rate monitoring???Implantation of cardiac pacemaker???Laparoscopic adjustable gastric banding???Percutaneous extraction of kidney stone with fragmentation procedure???Radiofrequency ablation of lesion of heart Discharge Vitals Vital Signs Height: 170.18 cm Height Inches Conversion: 67 Weight: 101.5 kg Weight in Pounds (kg conversion): 223.3 Body Surface Area: 2.1905 m2 Body Mass Index: 35.05 kg/m2 Temperature Temporal Artery: 36 DegC Systolic Blood Pressure: 120 mm Hg Diastolic Blood Pressure: 80 mm Hg Peripheral Pulse Rate: 77 bpm Oxygen Saturation: 99 % Primary Pain Comments: unless a flare up HRA Pain Present: Yes What to do next Scheduled Follow-Up Appointments Tuesday 10:30 AM CDT ?? With: Roger Scales MD Where: [facility] [address] [facility] [address] [place], [place] [id number] Tuesday 11:00 AM CDT ?? With: Vernon Richey MD Where: [facility] [address] [place] [address] [address], [place] [id number] Tuesday 11:45 AM CDT ?? With: Grayson Condon MD Where: [facility] [address] [phone] You Need to Complete the Following BROOK Screen w/Reflex to Titer/Pattern, 01/24/24, Blood, ROUTINE, Routine, Order for Future Visit, Nurse Collect, Print Label, M19.90 Arthritis M79.1 Myalgia R53.83 Fatigue Bursitis M77.9 Tendonitis, Not Required, Hold Until Collected C3 Complement, 01/24/24, Blood, ROUTINE, Routine, Order for Future Visit, Nurse Collect, Print Label, M19.90 Arthritis M79.1 Myalgia R53.83 Fatigue Bursitis M77.9 Tendonitis, Not Required, Hold Until Collected C4 Complement, 01/24/24, Blood, ROUTINE, Routine, Order for Future Visit, Nurse Collect, Print Label, M19.90 Arthritis M79.1 Myalgia R53.83 Fatigue Bursitis M77.9 Tendonitis, Not Required, Hold Until Collected CBC with Differential, 01/24/24, Blood, ROUTINE, Routine, Order for Future Visit, Nurse Collect, Print Label, M19.90 Arthritis M79.1 Myalgia R53.83 Fatigue Bursitis M77.9 Tendonitis, Hold Until Collected Comprehensive Metabolic Profile, 01/24/24, Blood, ROUTINE, Routine, Order for Future Visit, Nurse Collect, Print Label, M19.90 Arthritis M79.1 Myalgia R53.83 Fatigue Bursitis M77.9 Tendonitis, Not Required, Hold Until Collected Creatine Kinase, 01/24/24, Blood, ROUTINE, Routine, Order for Future Visit, Nurse Collect, Print Label, M19.90 Arthritis M79.1 Myalgia R53.83 Fatigue Bursitis M77.9 Tendonitis, Not Required, Hold Until Collected Cyclic Citrullinated Peptide (CCP), 01/24/24, Blood, ROUTINE, Routine, Order for Future Visit, Nurse Collect, Print Label, M19.90 Arthritis M79.1 Myalgia R53.83 Fatigue Bursitis M77.9 Tendonitis, Not Required, Hold Until Collected Magnesium Level, 01/24/24, Blood, ROUTINE, Routine, Order for Future Visit, Nurse Collect, Print Label, M19.90 Arthritis M79.1 Myalgia R53.83 Fatigue Bursitis M77.9 Tendonitis, Not Required, Hold Until Collected Rheumatoid Factor, Quantitative, 01/24/24, Blood, ROUTINE, Routine, Order for Future Visit, Nurse Collect, Print Label, M19.90 Arthritis M79.1 Myalgia R53.83 Fatigue Bursitis M77.9 Tendonitis, Not Required, Hold Until Collected Sedimentation Rate, 01/24/24, Blood, ROUTINE, Routine, Order for Future Visit, Nurse Collect, PrintLabel, M19.90 Arthritis M79.1 Myalgia R53.83 Fatigue Bursitis M77.9 Tendonitis, Not Required, Hold Until Collected Referral Information Referral Information ? No Results Found ? Medications What How Much When Instructions Unchanged alendronate (alendronate 35 mg oral tablet) 1 tablet(s) By mouth Every week Unchanged apixaban (Eliquis 5 mg oral tablet) 1 tablet(s) By mouth 2 times a day Unchanged calcium carbonate-magnesium chloride (Slow-Mag 71.5 mg-119 mg oral delayed release tablet) 2 tablet(s) By mouth Every evening at bedtime Unchanged celecoxib (celecoxib 200 mg oral capsule) 1 capsule(s) By mouth As needed for for pain BID ??as needed ?? Unchanged estradiol (estradiol 1.5 mg oral tablet) 1 tablet By mouth Daily Unchanged furosemide (Lasix 20 mg oral tablet) 1 tablet(s) By mouth Daily Unchanged lisinopril (lisinopril 10 mg oral tablet) 1 tablet(s) By mouth Daily Unchanged meclizine (Antivert 25 mg oral tablet) 1 tablet(s) By mouth 3 times a day as needed for for dizziness Unchanged metoprolol (Metoprolol Succinate ER 25 mg oral tablet, extended release) 1 tablet(s) By mouth 2 times a day Take an extra 25 mg q 4 hours PRN atrial fibrillation. ?? Unchanged multivitamin with minerals (PreserVision AREDS 2 oral capsule) 2 times a day Unchanged potassium chloride (Potassium Chloride (Eqv-K-Tab) 20 mEq oral tablet, extended release) 1 tablet(s) By mouth As needed 1 time daily, 2nd tablet if needed. ?? Unchanged spironolactone (spironolactone 25 mg oral tablet) 1 tablet(s) By mouth Daily Duration: 90 day(s) Unchanged tirzepatide (Zepbound 2.5 mg/ 0.5 mL subcutaneous solution) 2.5 Milligram Subcutaneous Every week Unchanged traMADol (traMADol 50 mg oral tablet) 1 tablet(s) By mouth 2 times a day Unchanged vibegron (Gemtesa 75 mg oral tablet) 1 tablet(s) By mouth Daily Medications and Immunizations Administered Medication Administrations ? No Results Found ? 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 Act FAST and Check for these signs: FACE Does the face look uneven? ARM Does one arm drift down? SPEECH Does their speech sound strange? TIME Call at any sign of stroke Voice to Text Technology Disclaimer This note may contain text inserted via Dragon or other voice to text assistive technology and senior datastage developer, variances may occur. Patient Care team information Care Team Personnel Name: Krzysztof Avalos MD Position: Physician - Electrophysiology Member Role: Sales Representative Adding Machines Address: Address: [address] [place] [id number] [place] Name: Vernon Richey MD Position: Physician - Internal Medicine Member Role: Specialist Physician Address: Address: [address] [place] [address] [place] Name: Chloe House NP Position: JESUS FAX ONLY - MD NOT ON STAFF Member Role: Primary Care Physician Address: Address: [address] [place] [address] [place] Name: Roger Scales MD Position: Physician - Cardiology Member Role: Occupational Health And Safety Adviser Address: Address: [address] [place], [place] [address]- Name: Esperanza Membreno VETERINARY X RAY OPERATOR Position: AMB VETERINARY X RAY OPERATOR/PA Member Role: Nurse Practitioner Address: Address: [address] [place] [address] Name: Vernon Richey MD Position: Physician - Internal Medicine Med Service: Chief Of Service E Business Manager Role: Attending Physician Address: Address: [address] [place] [address] [place] Care Team Related Persons Name: REGINE HASSAN Address: home [address] [place] [phone] [place] Name: SOFIA TESFAYE
--- OUTSIDE RECORDS SUMMARY | 2024-04-04 19:39 | XMS_ITS | Continuity of Care Document ---
Author Organization [facility] Address [address] [place] [id number] Care Team Providers Care Lunch Cook Name Role Phone Bianca Aggarwal Primary Care Physician Encounter [facility] Financial Number [id number] Date(s): 08/02/23 - 08/02/23 [facility] [address] [phone] Encounter Diagnosis Paroxysmal atrial fibrillation(Discharge Diagnosis) - 08/01/23 Pacemaker(Discharge Diagnosis) - 08/01/23 History of syncope(Discharge Diagnosis) - 08/01/23 Cardiac murmur(Discharge Diagnosis) - 08/01/23 Chronic anticoagulation(Discharge Diagnosis) - 08/01/23 E78.5 Hyperlipidemia(Discharge Diagnosis) - 08/01/23 HTN (hypertension)(Discharge Diagnosis) - 08/01/23 Mild aortic stenosis(Discharge Diagnosis) - 08/02/23 Dizziness(Discharge Diagnosis) - 08/02/23 Discharge Disposition: Home or Self Care Attending Physician: Roger Scales MD Allergies, Adverse Reactions, Alerts Substance Criticality Severity Reaction Reaction Severity Status iodine Active Latex Rash Active Assessment and Plan Future Appointments Appointment Date:08/24/2023 08:00:00 AM Scheduled Provider:Krzysztof Avalos MD Location:[facility] Appointment Type:Lead Revision Appointment Date:12/26/2023 11:30:00 AM Scheduled Provider:Roger Scales MD Location[facility] App[facility]ment Type:[facility] EP Established Patient Immunizations Given and Recorded [...] tablet 40 mg, 1 tablet(s), Oral, daily, 90 tablet(s), Tablet(s), 5, 5, Route to Pharmacy Electronically, [place] [id number], [facility]CPDP_ID-[id number], 170.2, cm, 08/02/23 11:06:00 CDT, Height, 102, kg, 08/02/23 11:06:00 CDT, Weight Start Date: 08/02/23 Status: Ordered celecoxib 200 mg oral capsule 1 capsule(s), Oral, bid with meals, 180 capsule(s), 0, Route to Pharmacy Electronically, [place] [id number], NCPDP_ID-[id number], 170.3, cm, 08/09/22 11:04:00 CDT, Height, 103, kg, 08/09/22 11:04:00 CDT, Weight Start Date: 04/06/23 Status: Ordered Eliquis 5 mg oral tablet 5 mg, 1 tablet(s), Oral, bid, 180 tablet(s), Tablet(s), 4, 4, Route to Pharmacy Electronically, [place] [id number], NCPDP_ID-[id number], 170.2, cm, 08/02/23 11:06:00 CDT, Height, 102, kg, 08/02/23 11:06:00 CDT, Weight Start Date: 08/02/23 Status: Ordered estradiol 1.5 mg oral tablet 1 tablet, Oral, daily, 0 Start Date: 09/06/16 Status: Ordered Gemtesa 75 mg oral tablet 75 mg, 1 tablet(s), Oral, daily, 0 Start Date: 08/03/21 Status: Ordered Lasix 20 mg oral tablet 20 mg, 1 tablet(s), Oral, daily, 0 Start Date: 06/24/23 Status: Ordered lisinopril 10 mg oral tablet 10 mg, 1 tablet(s), Oral, daily, 90 tablet(s), Tablet(s), 4, 4, Route to Pharmacy Electronically, [id number], 170.2, cm, 08/02/23 11:06:00 CDT, Height, 102, kg, 08/02/23 11:06:00 CDT, Weight Start Date: 08/02/23 Status: Ordered magnesium oxide 400 mg oral tablet 400 mg, 1 tablet(s), Oral, daily, 14 tablet(s), Tablet(s), 0 Start Date: 08/08/18 Stop Date: 08/22/18 Status: Ordered potassium chloride 20 mEq oral tablet, extended release 20 mEq, 1 tablet(s), Oral, daily with breakfast, 180 tablet(s), Tablet CR, 0 Start Date: 06/06/23 Status: Ordered PreserVision AREDS 0 Start Date: 06/24/23 Status: Ordered PreserVision AREDS 2 oral capsule bid, 0 Start Date: 03/21/18 Status: Ordered Sotalol HCL AF 80 mg, Oral, bid, 0 Start Date: 09/06/16 Status: Ordered spironolactone 25 mg oral tablet 25 mg, 1 tablet(s), Oral, daily, 30 tablet(s), Tablet(s), 0 Start Date: 12/17/21 Status: Ordered Xanax 0.25 mg oral tablet 0.25 mg, 1 tablet(s), Oral, daily, PRN, Tablet(s), 0, anxiety Start Date: 03/21/18 Status: Ordered Problem List Condition Confirmation Course Effective Dates Status H ealth Status Informant HCC: Atrial fibrillation I48.91 Confirmed Active Bursitis Confirmed Active Pacemaker Confirmed Active Gall stones Confirmed Active IBS (irritable bowel syndrome) Confirmed Active Pacemaker lead malfunction Confirmed Active Colon, diverticulosis Confirmed Active Dizziness Confirmed Active 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 on substance abuse specialist Confirmed Active R53.83 Fatigue Confirmed Active Injury of plantar plate of right foot Confirmed Active History of Indonesian measles 1 Confirmed Active Hammertoe Confirmed Active Cardiac murmur Confirmed Active History of syncope Confirmed Active E78.5 Hyperlipidemia Confirmed Active HTN (hypertension) Confirmed Active E87.6 Hypokalemia Confirmed Active M19.90 Arthritis Confirmed Active Arthralgia Confirmed Active Kidney stones Confirmed Active Chronic anticoagulation Confirmed Active Mild aortic stenosis Confirmed Active M79.1 Myalgia Confirmed Active Myositis Confirmed Active R00.2 Palpitation Confirmed Active Paroxysmal atrial fibrillation Confirmed Active Syncope Confirmed Active M77.9 Tendonitis Confirmed Active E55.9 Vitamin D deficiency Confirmed Active 1states she has POHS due to alban[place] measles when she was 5 affecting her [...] Most recent to oldest [Reference Range]: 1 Peripheral Pulse Rate [60-100 bpm] 62 bp m (08/02/23 11:06 AM) Blood Pressure [89-139/60-90 mm Hg] 136/ 84mm Hg (08/02/23 11:06 AM) Height 170.2 cm (08/02/23 11:06 AM) Weight 102 kg (08/02/23 11:06 AM) Social History Social History Type Response Alcohol Never alcohol user Substance Abuse Never drug user Smoking Status Never smoker;Never; Tobacco Cessation Counseling Requested N/A entered on: 08/09/22 Sex Note * Bibi Irwin MARKETING TRAINEE: PERFORM Event Display: Patient Documentation AMB Authored Date: [id number] * Event Display: ROI_Correspondence Authored Date: [id number] * Event Display: ROI_Correspondence Authored Date: [id number] * Event Display: ROI_Correspondence Authored Date: EKG study * Elizabeth Leslie MARKETING TRAINEE: PERFORM Event Display: In Office EKG Authored Date: Cardiology Outpatient Note * Roger Scales MD: PERFORM Event Display: Cardiology Office/Clinic Note Authored Date: [id number] Patient Information Name:KRISTEL CHATTERJEE Address: [address] [place] [phone] Sex:Female Date of :1955 Emergency Contact:TESFAYE, SOFIA Location:[facility] Registration Date and Time:08/02/2023 10:29 CDT Primary Care Physician: Bianca Aggarwal MOISTURE MACHINE TENDER, Attending Physician: Roger Scales MD, Chief Complaint F/u for PAF History of Present Illness ?? Ms. Chatterjee is a 68-year-old??female??with the following medical problems. ?? Past medical history: Ablation of atrial fibrillation in December of 2010 and in??February of 2011 PAF starting in approximately 2009 HTN HLD IBS Vertigo Diverticulitis Pacemaker ?? Allergies: Latex Iodine ?? Habits: None. ?? Social history:?? Marital status:?? with 2 kids.? Occupation: Disabled.?? She has a [employer] business. ?? Exercise: None. ?? Family history: Father w/ heart problems; he at the age of 70. Mother w/ HTN; mother at age 47 from a brain aneurysm. Brother at the age of 52; he had a CABG at the age of 35. ?? Personal: Referred by Dr. Cabrera to evaluate PAF, HTN, and hypotension. ?? Initial evaluation: 06/06/2023 ?? Tests: 11/25/2022: Cardiac catheterization: normal coronaries, EF 70%, LVEDP 23. 02/2023: she had a near syncopal episode and her ILR showed a pause of greater than three seconds and multiple episodes of atrial fibrillation. 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 04/20/2023: K 3.9, AST 66, ALT 47, creatinine 0.61, hgb 13.6 06/06/2023: EKG: normal sinus rhythm. ?? History on 06/06/2023: In October of 2022 she woke up in atrial fibrillation.?? She rode in a car on the way home from vacation in [place], [place], then she was sitting at a table at a restaurant eating dinner.?? She began to feel light headed and fuzzy, and she passed out.?? She woke back up and got back in the car to ride therest of the way home. She continued to have syncopal episodes while sitting down, and she had a pacemaker placed.?? She has had many issues with her pacemaker, including: infection of her incision, being shocked by her pacemaker, and a misplaced ventricular lead. She continues to have dizzy spells. ?? Treatment plan on 06/06/2023: She has had multiple syncopal episodes, frequent PAF, and bradycardia s/p pacemaker.?? She is on both blood pressure medications as well as Florinef.?? Apparently her pacemaker is also not working properly. Her BP was 175/90 supine and 150/95 standing. I recommended she??minimize taking Celebrex as it can cause fluid retention and HTN. Fludrocortisone can cause edema and elevated BP.?? I weaned and discontinued her fludrocortisone; Ireduced it to 0.1 mg daily for one week, then 0.1 mg every other??day for one week, then stop fludrocortisone.?? I reduced her Lisinopril from 40 mg??to 20 mg daily. Her AST on 04/20/2023 was 66.?? I reduced her??atorvastatin from 80 mg daily to 40 mg daily. I will order an echocardiogram at her next visit to evaluate her cardiac murmur. I am hoping that by stopping her Florinef I can reduce some of her BP medications and help her edema. I referred her to Dr. Condon to??manage her??pacemaker. ?? Her echocardiogram on 08/02/2023 showed??normal LV function with mild , peak aortic valve gradient of??14 with KIMBERLEY??of 1.4. ? Follow-up on 08/02/2023: She returns for cardiology follow-up. She denies chest pain, shortness of breath or palpitations. She continues to have episodes of dizziness where she gets very hot then cold.?? She denies syncope. ?? Her EKG on 08/02/2023 showed normal sinus rhythm. ?? Treatment plan on 08/02/2023: Her is mild. She reports her bottom pacemaker leads are not functioning.?? She is scheduled to have her pacemaker replaced by Dr. Avalos.?? Her dizziness could be due to her malfunctioning pacemaker.? Her blood pressure was normal; it was 120/70 both supine and standing.?? She denies??recurrent syncope, but she continues to feel dizzy.?? I reduced her lisinopril from 20 mg daily to 10 mg daily. ? Her fell in 2017 and hit his head; he now has problems with his memory, tremors, and neuropathy. ?? Review of Systems ?? General Weight Change >10lbs: No Fever: No Fatigue: No Difficulty Sleeping: Yes Blood Transfusion: No ?? Psych/Social Feeling blue/discouraged: No High anxiety/stress: No Loss of friends: No Feeling life has no purpose: No Feeling others are talking about you: No Feeling fear: No Hearing voices: No Marital or relationship problems: No production consultant awakenings: No ?? Head & Neck ROS Visual Changes (Not Glasses): No Dizziness: Yes Double vision: No Sinus problems: Yes Frequent persistent nosebleeds: No Ear pain: No Trouble hearing: No Ringing in Ears: No Hoarseness: No Persistent sore throat: No Mouth sores: No Swollen glands (Frequent): No ?? Kidney/Bladder UTI: No Urinary Incontinence: No Urinary Hesitancy: No Frequent Urination: No Frequent urination at night: No Difficulty urinating: No Urinary Urgency: No Urinary Retention: No Blood in urine: No ?? Respiratory/Lungs Stop breathing during sleep: No Shortness of Breath: No Coughing up blood: No Wheezing: No Cough.: No Sore Throat: No Snoring: No Daytime sleepiness: No ?? Skeletal Gout: No Back Pain (Major): No Neck Pain (Major): No Weakness of arm or leg: No Joints Swelling/Stiffness: Yes Deformities of Back/Extremities: No Leg swelling: Yes Edema: No ?? Heart/Vascular Chest discomfort/tightness: Yes Irregular rapid heart beat: No Smothering feeling at night: No Ankle swelling: Yes Light headed: Yes Fainting episodes: No Varicose Veins: No Leg Pain with Walking: No Color/Temperature Changes of Extremities: No Leg Swelling ROS: Yes ?? Neuro Numbness or tingling: No Severe frequent headaches: No Abnormal coordination: No Trouble with speech: No Forgetfulness/confusion: No ?? Stomach/Bowel Black/Bloody stools: No Nausea/Vomiting (Frequent): No Frequent heart burn/acid (GERD): No Abdominal pain.: No Diarrhea (Frequent): No Constipation.: No Difficulty swallowing: No Vomiting blood: No ?? Skin & Hair Changes in hair/hair loss: No Major skin problems: No Wounds that will not heal: No Persistent rash: No Changes in moles: No ?? Vitals and Measurements Vital Signs Height: 170.2 cm Height Inches Conversion: 67 Weight: 102 kg Weight in Pounds (kg conversion): 224.4 Body Surface Area: 2.196 m2 Body Mass Index: 35.21 kg/m2 Systolic Blood Pressure: 136 mm Hg Diastolic Blood Pressure: 84 mm Hg Peripheral Pulse Rate: 62 bpm Oxygen Saturation: 98 % Physical Exam ?? General Appearance: alert and oriented?? Eyes: normal Ears: normal Nose: normal Neck: no jugular venous distention Chest: normal shape Heart: normal rate, regular rhythm, 2/6 ejection systolic murmur Lungs: respiratory rate is normal, breath sounds are clear bilaterally.?? Extremities: no edema ? Assessment/Plan 1.??Paroxysmal atrial fibrillation 2.??Chronic anticoagulation 3.??Pacemaker 4.??History of syncope 5.??Cardiac murmur 6.??Mild aortic stenosis 7.??E78.5 Hyperlipidemia 8.??HTN (hypertension) 9.??Dizziness ?? PAF:?? She was diagnosed with atrial fibrillation in approximately 2009.?? She had two ablations [id number].?? She had a pacemaker placed in approximately February of 2023.?In February 2023 she had anear syncopal episode and her ILR showed a pause of greater than three seconds and multiple episodes of atrial fibrillation.?? 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 Sheis currently in sinus rhythm and is on Eliquis for anticoagulation. ? Syncope:?? She has had multiple syncopal episodes.?? In February 2023 she had a near syncopal episode and her ILR showed a pause of greater than three seconds and multiple episodes of atrial fibrillation.?? She continued to have syncopal episodes while sitting down, and she had a pacemaker placed.?? She continues to have dizzy spells.?? Her BP was 175/90 supine and 150/90 standing.?? On 06/06/2023??I recommended she??minimize taking Celebrex as it can cause fluid retention and HTN.?? Fludrocortisone can cause edema and elevated BP.?? I weaned and discontinued her fludrocortisone; I reduced itto 0.1 mg daily for one week, then 0.1 mg every other??day for one week, then stop fludrocortisone.?I reduced her Lisinopril from 40 mg??to 20 mg daily.?? She denies??recurrent syncope, but she continues to feel dizzy.?? I reduced her lisinopril from 20 mg daily to 10 mg daily. ? Cardiac murmur:?? She has a 2/6 ejection systolic murmur on exam.?Her echocardiogram on 08/02/2023 showed??normal LV function with mild , peak aortic valve gradient of??14 with KIMBERLEY??of 1.4.?? Her is mild. ? Dizziness:?? Her dizziness could be due to her malfunctioning pacemaker.? Edema:?? I am hoping that by stopping her Florinef I can reduce some of her BP medications and helpher edema.?? Her edema is improved.? HLD:?? Her AST on 04/20/2023 was 66.?? On 06/06/2023??I reduced her??atorvastatin from 80 mg daily to 40 mg daily. ? HTN:?? On 06/06/2023 her BP was 175/90 supine and 150/95 standing.?? At that time,??I recommended she??minimize taking Celebrex as it can cause fluid retention and HTN.?? Fludrocortisone can cause edema and elevated BP.?? I weaned and discontinued her fludrocortisone; I reduced it to 0.1 mg daily for one week, then 0.1 mg every other??day for one week, then stop fludrocortisone.?I reduced her Lisinopril from 40 mg??to 20 mg daily.?? I am hoping that by stopping her Florinef I can reduce someof her BP medications and help her edema.?On 08/02/2023 her blood pressure was normal; it was 120/70 both supine and standing.?She denies??recurrent syncope, but she continues to feel dizzy.?? I reduced her lisinopril from 20 mg daily to 10 mg daily.? Pacemaker:?? She had a pacemaker placed in approximately February of 2023.?? She has had many issues with her pacemaker, including: infection of her incision, being inappropriately??shocked by herpacemaker, and a misplaced ventricular lead.?? I referred her to Dr. Condon to??manage her pacemaker.?? When I saw her on 08/02/2023 she reported her bottom pacemaker leads are not functioning.?? She is scheduled to have her pacemaker replaced by Dr. Avalos.?? Her dizziness could be due to her malfunctioning pacemaker.? Problem List/Past Medical History Ongoing Arthralgia Bursitis Cardiac murmur Chronic anticoagulation Colon, diverticulosis Dizziness E55.9 Vitamin D deficiency E78.5 Hyperlipidemia E87.6 Hypokalemia Gall stones Hammertoe HCC: Atrial fibrillation I48.91 History of Indonesian measles History of syncope HTN (hypertension) IBS (irritable bowel syndrome) Injury of plantar plate of right foot Kidney stones M19.90 Arthritis M77.9 Tendonitis M79.1 Myalgia Mild aortic stenosis Myositis 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 on substance abuse specialist Pacemaker Pacemaker lead malfunction Paroxysmal atrial fibrillation R00.2 Palpitation R53.83 Fatigue Syncope Historical No qualifying data Procedure/Surgical History ???Procedure on lower leg (03/04/2021)???Abdominal hysterectomy???Arthroscopic knee operation???Cholecystectomy???Coronary heart disease monitoring???foot bone spur???Heart rate monitoring???Implantation of cardiac pacemaker???Laparoscopic adjustable gastric banding???Percutaneous extraction of kidney stone with fragmentation procedure???Radiofrequency ablation of lesion of heart Medications alendronate 35 mg oral tablet, 35 mg= 1 tablet(s), Oral, qWeek Antivert 25 mg oral tablet, 25 mg= 1 tablet(s), Oral, tid, PRN atorvastatin 40 mg oral tablet, 40 mg= 1 tablet(s), Oral, daily, 5 refills celecoxib 200 mg oral capsule, 1 capsule(s), Oral, bid with meals Eliquis 5 mg oral tablet, 5 mg= 1 tablet(s), Oral, bid, 4 refills estradiol 1.5 mg oral tablet, 1 tablet, Oral, daily Gemtesa 75 mg oral tablet, 75 mg= 1 tablet(s), Oral, daily Lasix 20 mg oral tablet, 20 mg= 1 tablet(s), Oral, daily lisinopril 10 mg oral tablet, 10 mg= 1 tablet(s), Oral, daily, 4 refills magnesium oxide 400 mg oral tablet, 400 mg= 1 tablet(s), Oral, daily potassium chloride 20 mEq oral tablet, extended release, 20 mEq= 1 tablet(s), Oral, daily with breakfast PreserVision AREDS PreserVision AREDS 2 oral capsule, bid Sotalol HCL AF, 80 mg, Oral, bid spironolactone 25 mg oral tablet, 25 mg= 1 tablet(s), Oral, daily Xanax 0.25 mg oral tablet, 0.25 mg= 1 tablet(s), Oral, daily, PRN Allergies Latex??(Rash) iodine Social History Alcohol Never [...] valve disorder ?Father ?Positive ?Heart disease ? Voice to Text Technology Disclaimer This note may contain text inserted via Dragon or other voice to text assistive technology and chainer, variances may occur. Patient Care team information Care Team Personnel Name: Vernon Richey MD Position: Physician - Internal Medicine Member Role: Specialist Physician Address: Address: [address] [place] [address] [address] Name: Bianca Aggarwal MOISTURE MACHINE TENDER Position: JESUS ROJAS ONLY - MD NOT ON STAFF Member Role: Primary Care Physician Address: Address: [address] [place] [address] Name: Roger Scales MD Position: Physician - Cardiology Med Service: Surface Grinder Lunch Cook Role: Attending Physician Address: Address: [address] [place] [address] [address] [place] [address]- Care Team Related Persons Name: REGINE CHATTERJEE Address: [address] [phone] [facility] Name: SOFIA TESFAYE
--- OUTSIDE RECORDS SUMMARY | 2024-04-04 19:39 | XMS_ITS | Encounter Summary ---
Author Organization [facility] Address [address] [place] [address] Care Team Providers Care Switchgear Repairer Name Role Phone Bianca Aggarwal AURE-NEWSPAPER CLIPPER Primary Care Provider [phone] Reason for Visit * Reason Onset Date Comments Follow-up 04/28/2023 Encounter Details Date Type Department Care Team (Late Contact Info) Description 04/28/2023 Telephone [facility] - Ophthalmology [address] [place] [phone] Hemalatha Landers OD [address] [place] [address] [place] [address] Follow-up Social History Tobacco Use Types Packs/Day Years Used Date Smoking Tobacco: Never Smokeless Tobacco: Never Alcohol Use Standard Drinks/Week Comments No 0 (1 standard drink = 0.6 oz pur e alcohol) Sex and Gender Information Value Date Recorded Sex Assigned at Not on file Gender Identity Not on file Sexual Orientation Not on file documented as of this encounter Miscellaneous Notes * Telephone Encounter - Hemalatha Landers OD - 04/28/2023 3:31 PM CST Lost left GP CL Called to ask if older lens ok to use Per KL - ok to use old lens Plan to update GP CL OU in July CLE MECHANIC documented in this encounter Plan of Treatment Upcoming Encounters Date Type Department Care Team (Late Contact Info) Description 08/13/2024 10:00 AM CDT Office Visit [facility] - Ophthalmology [address] [facility] ([place], [place]), [place] [phone] Hemalatha Landers M, OD [address] [facility] [place] [address] documented as of this encounter Visit Diagnoses Not on filedocumented in this encounter Care Teams Switchgear Repairer Relationship Specialty Start Date End Date Bianca Aggarwal APRN-IGLESIA [address] [place] [id number] PCP - General 09/29/21 documented as of this encounter
--- OUTSIDE RECORDS SUMMARY | 2024-04-04 19:39 | XMS_ITS | Encounter Summary ---
Author Organization [facility] Address [address] [facility] [place] [address] Care Team Providers Care Hide Tanner Name Role Phone Unavailable Primary Care Provider Unavailabl e Reason for Visit * Reason Comments Contact Lens Check Encounter Details Date Type Department Care Team (Late st Contact Info) Description 05/09/2019 12:30 PM SPOT SPRAYER Office Visit [facility] [address] [place] [address] [place] [address] [facility] [phone] Myopia, bilateral (Primary Dx) Social History Tobacco Use Types Packs/Day Years Used Date Smoking Tobacco: Never Smokeless Tobacco: Never Alcohol Use Standard Drinks/Week Comments No 0 (1 standard drink = 0.6 oz pur e alcohol) Sex and Gender Information Value Date Recorded Sex Assigned at Not on file Gender Identity Not on file Sexual Orientation Not on file documented as of this encounter Patient Instructions * Patient Instructions* Mariana Figueroa, OD - 05/09/2019 12:55 PM SPOT SPRAYER Try +1.00 [id number] readers over your contact lenses Use Refresh Relieva for Contacts up to four times daily Follow-up in 2 weeks, sooner if problems Use preservative free artificial tears as needed Remember to remove your contact lenses every evening after daily wear to clean/soak in approved disinfecting solution for appropriate amount of time as specified on bottle/box. Always wash your hands prior to handling contact lenses Do not use tap, distilled or bottled water in direct contact with your lenses Do not use anything that is not approved for contact lens use in direct contact with you lenses Do not sleep, swim, or use a hot tub while wearing your contact lenses. Replace your contact lens case frequently. Rinse your case out with multipurpose contact lens solution or sterile saline. Do not use tap water to clean your case. Return to contact lens clinic in 2-3 weeks, sooner if problems. Non-compliance may result in a sight threatening infection If you experience eye pain, redness, discharge, decrease in vision, new flashes of light or floaters in your vision, or if you feel that part of your vision is blocked or cut off, you must call the office immediately: [phone]. After hours call [phone] and ask for Eye resident Cushion Padder. SPRAYER documented in this encounter Progress Notes * Mariana Figueroa, OD - 05/14/2019 12:06 PM CST Brenna Chatterjee is a 64 year old female who is being seen at the request of Dr. Woodson for Chief Complaint Patient presents with ??? Contact Lens Check Having trouble seeing intermediate distance/computer work. Did try a pair of +1.00 readers over andit seemed to help. Doing amsler grid and is without changes. No other concerns. Lenses seem comfortable. Allergies: is allergic to flecainide. EXAM: Base Eye Exam Visual Acuity (Snellen - Linear) Right Left Dist cc 20/20 20/100 Arms length 20/30-1 OU Near 20/20 OU Pupils Pupils Right PERRL Left PERRL Neuro/Psych Mood/Affect: Normal Slit Lamp and Fundus Exam External Exam Right Left External Normal Normal Slit Lamp Exam Right Left Lids/Lashes Normal Normal Conjunctiva/Sclera White and quiet White and quiet Cornea Clear Clear Anterior Chamber Deep and quiet Deep and quiet Iris Round and reactive Round and reactive Lens Clear Clear Contact Lens Exam Current Contact Lens Rx (Dispensed) Brand Base Curve Diameter Sphere Lens Dist VA Centration Movement Rotation Right Fluorperm 60 7.98 9.5 -4.50 RGP 20/20 Lid attachment Adequate Centers Left Fluoroperm 60 7.90 9.5 -5.50 RGP 20/100 Lid attachment Adequate Centers Over-Sphere Over-Cyl Over-Dist VA Right Left -2.25 Sphere 20/25 IMPRESSION: 1. POHS OU 2. Degenerative myopia OS 3. Myopia with presbyopia OU -good fit, comfort and vision (although having trouble with computer work still and likes +1.00 over it) with most recent RGPs RECOMMENDATION: 1. & 2. Follow with retina (appointment this afternoon) 3. Trial with +1.00 readers over glasses. Follow-up in 2 weeks, sooner if problems Time was spent answering questions and patient voiced understanding/in agreement with plan. Given AVS. [] Patient seen and examined. Resident/Litigation Attorney note reviewed and discussed. I confirm these findings other than where revisions were made. SPRAYER documented in this encounter Plan of Treatment Upcoming Encounters Date Type Department Care Team (Late st Contact Info) Description 08/13/2024 10:00 AM CDT Office Visit [facility] - Ophthalmology [facility] [place] [phone] Hemalatha Landers OD [address] [facility] DEPT [place] [phone] documented as of this encounter Visit Diagnoses Diagnosis Myopia, bilateral- Primary Myopia documented in this encounter
--- OUTSIDE RECORDS SUMMARY | 2024-04-04 19:39 | XMS_ITS | Encounter Summary ---
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 VISUAL PROBLEMS HPI: Ms. Chatterjee is a 64 y/o female with a history of histoplasmosis and myopic degeneration that presents with new onset blurry vision OS. No metamophopsia via amsler grid. She reports no pain, no flashes of light or floaters, no dimming, +blurry, blinking helps with eliminating blurriness. Gtts: none On eliquis for A fib The following was also reviewed and updated: Current Outpatient Medications Medication Sig Dispense Refill ??? ALPRAZolam (XANAX) 0.25 MG tablet Take 0.25 mg by mouth 3 times daily as needed for Anxiety ??? apixaban (ELIQUIS) 5 MG tablet Take 5 mg by mouth 2 times daily ??? atorvastatin (LIPITOR) 40 MG tablet Take 40 mg by mouth at bedtime. ??? celecoxib (CELEBREX) 200 MG capsule Take 200 mg by mouth 2 times daily. ??? estradiol (ESTRACE) 1 MG tablet Take 1 mg by mouth once daily. ??? fludrocortisone (FLORINEF) 0.1 MG tablet Take 0.1 mg by mouth 3 times daily ??? fluticasone propionate (FLONASE) 50 MCG/ACT nasal spray [place] 2 sprays into each nostril once daily 1 bottles 0 ??? furosemide (LASIX) 20 MG tablet Take 20 mg by mouth once daily ??? lisinopril (PRINIVIL; ZESTRIL) 10 MG tablet Take 10 mg by mouth once daily ??? magnesium oxide (MAG-OX) 400 MG tablet Take 400 mg by mouth once daily. ??? meclizine (ANTIVERT) 25 MG tablet Take 25 mg by mouth 3 times daily as needed. ??? Multiple Vitamins-Minerals (PRESERVISION AREDS PO) Take by mouth 2 times daily ??? omeprazole (PRILOSEC) 40 MG capsule Take 40 mg by mouth daily before breakfast. ??? solifenacin (VESICARE) 10 MG tablet Take 10 mg by mouth once daily ??? sotalol (BETAPACE) 80 MG tablet Take 40 mg by mouth 2 times daily. ??? traMADol (ULTRAM) 50 MG tablet Take 50 mg by mouth 2 times daily No current facility-administered medications for this visit. Allergies Allergen Reactions ??? Flecainide Palpitations and Other Past Medical History: Diagnosis Date ??? Arthritis ??? Atrial fibrillation ??? Diverticulitis ??? Edema ??? GERD (gastroesophageal reflux disease) ??? Histoplasmosis ??? Hypercholesteremia ??? Hypertension ??? IBS (irritable bowel syndrome) ??? Sleep apnea ??? Stomach ulcer ??? Vertigo Past Surgical History: Procedure Laterality Date ??? ABLATION FOR ATRIAL FIBRILLATION/FLUTTER 2010 ??? Cholecystectomy ??? FOOT ARTHROTOMY x2 ??? Hysterectomy ??? KNEE ARTHROPLASTY x3 Family History Problem Relation Name Age of Onset ??? Aneurysm, Aortic Mother ??? Other - Cardiac Father ??? Diabetes - Type 2 Father ??? Hypertension Father ??? Other - Cardiac Brother ??? Diabetes - Type 2 Brother ??? Hypertension Brother ??? Asthma Neg Hx ??? Autoimmune Disease Neg Hx ??? Bipolar Disorder Neg Hx ??? Cancer - Breast Neg Hx ??? Cancer - Colon Neg Hx ??? Cancer - Other Neg Hx ??? Cancer - Ovarian Neg Hx ??? Cancer - Pancreatic Neg Hx ??? Cancer - Prostate Neg Hx ??? Depression Neg Hx ??? Eczema Neg Hx ??? Migraine Neg Hx ??? Seizures Neg Hx ? ? Sudd. <30 Neg Hx ??? Thyroid Disease Neg Hx ??? Osteoporosis Neg Hx ??? Ulcerative Colitis Neg Hx Social History Tobacco Use ??? Smoking status: Never Smoker ??? Smokeless tobacco: Never Used Substance Use Topics ??? Alcohol use: No ??? Drug use: No Base Eye Exam Visual Acuity (Snellen - Linear) Right Left Dist sc 20/20 20/200 Dist cc 20/50+2 Correction: Contacts Tonometry (Tonopen, 1:25 PM) Right Left Pressure 15 16 Extraocular Movement Right Left 0 0 0 0 0 0 0 0 0 0 0 0 0 0 0 0 Neuro/Psych Oriented x3: Yes Mood/Affect: Normal Dilation Both eyes: 2.5% Fer Synephrine, 1.0% Mydriacyl @ 3:52 PM Slit Lamp and Fundus Exam External Exam Right Left External Normal Normal Slit Lamp Exam Right Left Lids/Lashes Normal Normal Conjunctiva/Sclera White and quiet White and quiet Cornea Clear Clear Anterior Chamber Deep and quiet Deep and quiet Iris Round and reactive Round and reactive Lens 1+ NSC 1+ NSC Vitreous Normal Normal Fundus Exam Right Left Disc tilted, PPA, small tilted, PPA, small C/D Ratio 0.2 0.2 Macula Normal Few punched out lesions, blunted fovel reflex nasally > temporally Vessels Normal Normal Periphery Few punched out lesions temporally and nasally, cobblestoning Few punched out lesions inferiorly and temporally, cobble stoning, small 0.25 DD punched out lesion at 6 olclock Study findings: OCTA OD: with parafoveolar avascularity, no active CNVM net OCT Macula OD: normal foveal contour OS: nasal macula fibrotic membrane Extended Ophthalmoscopy: OD: peripheral punched out lesions, cobble stoning OS: paramacular and peripheral punched out lesions, cobblestoning Assessment/Plan Brenna Chatterjee is a 64 year old female # ocular histoplasmosis OU - PPA, punched out lesions, no vitritis - with stable vision ? # High myopia OU (OD -5; OS -8D) # Myopic degeneration OS - notices new blurry vision eft eye over last 2months, but no new netmorphopsia on amsler grid - Continue Amsler and AREDS ? 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 Patient and family verbalized understanding and are in agreement with the plan. Plan was discussed with Dr. Jordan. Cherelle Weaver 04/25/2019 3:57 PM PGY-3 Ophthalmology Resident I have seen and examined the patient with the resident. I agree with the findings and plan of care as documented by the resident. I confirm history, exam, assessment and plan. In addition, I interpreted the diagnostic and study tests myself and agree with the reported interpretation in the note/chart. The plan was discussed with the patient and follow up compliance was agreed upon. I have made changes as needed and added new relevant medical information. Arian Jordan M.D. CATED INTERMODAL TRUCK DRIVER documented in this encounter Plan of Treatment Upcoming Encounters Date Type Department Care Team (Late st Contact Info) Description 08/13/2024 10:00 AM CDT Office Visit [facility] - Ophthalmology [facility] [place] [address] Hemalatha Landers M, OD [address] [facility] DEPT [place] [address] documented as of this encounter Procedures Procedure Name Priority Date/Time Associated Diagnosis Comments OPH OCT TEST SLU Routine 04/25/2019 1:39 PM DEDICATED INTERMODAL TRUCK DRIVER 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 OPH OCT TEST SLU Routine 04/25/2019 12:00 AM DEDICATED INTERMODAL TRUCK DRIVER 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
--- OUTSIDE RECORDS SUMMARY | 2024-04-04 19:39 | XMS_ITS | Continuity of Care Document ---
Author Organization [facility] Address [address] [id number] Care Team Providers Care District Ranger Name Role Phone Bianca Aggarwal Alayna Primary Care Physician [phone] Vernon Richey [facility] Encounter [facility] Financial Number [id number] Date(s): 08/10/22 - 08/10/22 [facility] [address] [facility] [address], [place] [id number] Discharge Disposition: Home or Self Care Allergies, Adverse Reactions, Alerts No Known Allergies Assessment and Plan Future Appointments Appointment Date:02/07/2023 11:00:00 AM Scheduled Provider:Vernon Richey MD [facility] Appointment Type:CIMR EP Established Patient Immunizations [...] Oral, bid with meals, 180 capsule(s), 1, Route to Pharmacy Electronically, [facility], MOPDP_ID-[id number], 170.5, cm, 12/17/2021 1121, Height, 99.7, kg, 12/17/2021 1121, Weight Start Date: 04/06/22 Status: Ordered Eliquis 5 mg oral tablet [...] oral capsule 25 mg, 1 capsule(s), Oral, [id number], PRN, 30 capsule(s), Capsule(s), 0, 0, pain, [...] Tablet(s), 0 Start Date: 12/17/21 Status: Ordered traMADol 50 mg oral tablet 1 tablet(s), Oral, tid, PRN, 90 tablet(s), 0, 0, NEEDED FOR PAIN, Route to Pharmacy Electronically, [facility], [id number], 170.5, cm, 12/17/2021 1121, Height, 99.7, kg, 12/17/2021 1121, Weight Start Date: 06/15/22 Stop Date: 07/15/22 Status: Ordered VESIcare 10 mg oral tablet 10 mg, 1 tablet(s), Oral, daily, 30 tablet(s), Tablet(s), 0 Start Date: 09/06/16 Status: Ordered Xanax 0.25 mg oral tablet 0.25 mg, 1 tablet(s), Oral, daily, PRN, Tablet(s), 0, anxiety Start Date: 03/21/18 Status: Ordered Problem List Condition Confirmation Course Effective Dates Status H ealth Status Informant HCC: Atrial fibrillation I48.91 Confirmed Active Bursitis Confirmed Active Gall stones Confirmed Active IBS (irritable bowel syndrome) Confirmed Active Colon, diverticulosis Confirmed Active 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 on systems consultant Confirmed Active R53.83 Fatigue Confirmed Active Injury of plantar plate of right foot Confirmed Active History of Malay measles 1 Confirmed Active Hammertoe Confirmed Active High cholesterol Confirmed Active E78.5 Hyperlipidemia Confirmed Active HBP (high blood pressure) Confirmed Active E87.6 Hypokalemia Confirmed Active M19.90 Arthritis Confirmed Active Arthralgia Confirmed Active Kidney stones Confirmed Active M79.1 Myalgia Confirmed Active Myositis Confirmed Active R00.2 Palpitation Confirmed Active M77.9 Tendonitis Confirmed Active E55.9 Vitamin D deficiency Confirmed Active 1states she has POHS due to spanish measles when she was 5 affecting her [...] 22 on left and 1 on right Social History Social History Type Response Alcohol Never alcohol user Substance Abuse Never drug user Smoking Status Never smoker;Never; Tobacco Cessation Counseling Requested N/A entered on: 08/09/22 Sex Letter * Vernon Richey MD: PERFORM, FOLLOWUP Event Display: Patient Letter Authored Date: [id number] Vernon Richey MD [address] [facility] [address] [place] [address] 08/09/2022 08/10/2022 KRISTEL HASSAN [address] [place] [address] DR FRA[place]AN [place], [place] [id number] The rheumatology lab work turned out well. This is good news. There is no sign for any active inflammation which is good. Two of the liver tests are little high. You should follow-up on this with your primary doctor. Vernon Richey MD Result Name Current Result Previous Result Reference Range WBC (K/uL) 5.2 08/09/2022 5.1 12/17/2021 4.3 - 10.0 Nucleated RBCs (%) 0 08/09/2022 0 12/17/2021 0 - 0 RBC (M/uL) 4.36 08/09/2022 4.25 12/17/2021 3.90 - 4.90 Hemoglobin (g/dL) 13.0 08/09/2022 13.2 12/17/2021 11.8 - 14.8 Hematocrit (%) 40.5 08/09/2022 40.9 12/17/2021 35.5 - 44.0 MCV (fL) 92.9 08/09/2022 96.2 12/17/2021 82.0 - 99.0 MCH (pg) 29.8 08/09/2022 31.1 12/17/2021 27.2 - 32.6 MCHC (g/dL) 32.1 08/09/2022 32.3 12/17/2021 31.5 - 35.5 RDW (%) 14.8 08/09/2022 13.9 12/17/2021 11.5 - 14.5 MPV (fL) 9.6 08/09/2022 9.4 12/17/2021 9.3 - 12.4 Platelet (K/uL) 276 08/09/2022 278 12/17/2021 140 - 350 Differential Type Automated 08/09/2022 Automated 12/17/2021 Immature Gran % (%) 0.2 08/09/2022 0.2 12/17/2021 0.0 - 0.5 Neutro % (%) 63 08/09/2022 63 12/17/2021 Lymph % (%) 24 08/09/2022 24 12/17/2021 [place] % (%) 9 08/09/2022 10 12/17/2021 Eos % (%) 3 08/09/2022 3 12/17/2021 Baso % (%) 0 08/09/2022 0 12/17/2021 Neutro # (K/uL) 3.3 08/09/2022 3.2 12/17/2021 1.9 - 7.0 Lymph # (K/uL) 1.2 08/09/2022 1.2 12/17/2021 0.7 - 4.5 [place] # (K/uL) 0.5 08/09/2022 0.5 12/17/2021 0.1 - 1.3 Eos # (K/uL) 0.2 08/09/2022 0.2 12/17/2021 0.0 - 0.7 Baso # (K/uL) 0.0 08/09/2022 0.0 12/17/2021 0.0 - 0.2 Sed Rate (mm/hr) 12 08/09/2022 28 12/17/2021 0 - 30 Sodium (mmol/L) 138 08/09/2022 139 12/17/2021 137 - 145 Potassium (mmol/L) 4.0 08/09/2022 3.8 12/17/2021 3.5 - 4.9 Chloride (mmol/L) 103 08/09/2022 102 12/17/2021 98 - 107 CO2 (mmol/L) 29 08/09/2022 32 12/17/2021 22 - 30 Anion Gap (mmol/L) 6 08/09/2022 5 12/17/2021 7 - 16 BUN (mg/dL) 22 08/09/2022 22 12/17/2021 7 - 17 Creatinine (mg/dL) 0.65 08/09/2022 0.8 12/17/2021 0.50 - 1.00 Glucose (mg/dL) 89 08/09/2022 94 12/17/2021 74 - 106 Calcium (mg/dL) 7.8 08/09/2022 9.5 12/17/2021 8.4 - 10.2 Protein, Total (g/dL) 7.0 08/09/2022 7.3 12/17/2021 6.5 - 8.6 Albumin (g/dL) 3.7 08/09/2022 4.0 12/17/2021 3.5 - 5.0 Alk Phos (U/L) 171 08/09/2022 152 12/17/2021 38 - 126 Bilirubin, Total (mg/dL) 0.6 08/09/2022 0.9 12/17/2021 0.2 - 1.3 AST (U/L) 49 08/09/2022 33 12/17/2021 14 - 42 ALT (U/L) 31 08/09/2022 16 12/17/2021 - <=35 eGFR(CKD-EPI) (mL/min/1.73m2) 97 08/09/2022 >=90 - eCrCl(C-Gault) (mL/min/kg) 1.3 08/09/2022 1.0 12/17/2021 CK, Total (U/L) 56 08/09/2022 44 12/17/2021 30 - 135 Rheumatoid Factor (IU/mL) <10.0 08/09/2022 <10.0 12/17/2021 <14.0 - C3 (mg/dL) 131 08/09/2022 134 12/17/2021 82-167 - C4 (mg/dL) 28 08/09/2022 32 12/17/2021 12-38 - Vernon Richey MD Note * Event Display: ROI_Correspondence Authored Date: * Event Display: ROI_Correspondence Authored Date: * HPF, Image_Migration: VERIFY, PERFORM Event Display: ROI_Correspondence Authored Date: [id number] Patient Care team information Care Team Personnel Name: Vernon Richey MD Position: Physician - Internal Medicine Member Role: Specialist Physician Address: Address: [address] [place] [address] Name: Bianca Aggarwal FRIT COATER Position: ZZ FAX ONLY - MD NOT ON STAFF Member Role: Primary Care Physician Address: Address: [address] [place] [address] Care Team Related Persons Name: REGINE HASSAN Address: home [address] [place], [place] [id number] [facility] Name: SOFIA TESFAYE
--- OUTSIDE RECORDS SUMMARY | 2024-04-04 19:39 | XMS_ITS | Continuity of Care Document ---
Author Organization [facility] [address] Address [address] [id number] Care Team Providers Care Resource Paraprofessional Name Role Phone ClaribelChloe nance Alayna Primary Care Physician Vernon Richey [facility] Encounter [facility] Financial Number [id number] Date(s): 08/09/22 - 08/09/22 [facility] [address] [phone] Encounter Diagnosis Arthralgia(Discharge Diagnosis) - 08/06/22 M79.1 Myalgia(Discharge Diagnosis) - 08/06/22 M77.9 Tendonitis(Discharge Diagnosis) - 08/06/22 R53.83 Fatigue(Discharge Diagnosis) - 08/06/22 Bursitis(Discharge Diagnosis) - 08/06/22 Discharge Disposition: Home or Self Care Attending Physician: Vernon Richey MD Allergies, Adverse Reactions, Alerts No Known Allergies Assessment and Plan Future Appointments Appointment Date:02/07/2023 11:00:00 AM Scheduled Provider:Vernon Richey MD Location:[facility] Patient Immunizations Given and Recorded [...] 180 capsule(s), 1, Route to Pharmacy Electronically, [id number], 170.5, cm, 12/17/2021 1121, Height, 99.7, kg, [...] oral capsule 25 mg, 1 capsule(s), Oral, [id number], PRN, 30 capsule(s), Capsule(s), 0, 0, pain, [...] NEEDED FOR PAIN, Route to Pharmacy Electronically, [place] [id number], 170.5, cm, 12/17/2021 1121, Height, 99.7, kg, [...] Colon, diverticulosis Confirmed Active 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 Confirmed Active R53.83 Fatigue Confirmed Active Injury of plantar plate of right foot Confirmed Active History of [place] measles 1 Confirmed Active Hammertoe Confirmed Active High cholesterol Confirmed Active E78.5 Hyperlipidemia Confirmed Active HBP (high blood pressure) Confirmed Active E87.6 Hypokalemia Confirmed Active M19.90 Arthritis Confirmed Active Arthralgia Confirmed Active Kidney stones Confirmed Active M79.1 Myalgia Confirmed Active Myositis Confirmed Active R00.2 Palpitation Confirmed Active M77.9 Tendonitis Confirmed Active E55.9 Vitamin D deficiency Confirmed Active 1states she has POHS due to guinean measles when she was 5 affecting her [...] Temporal Artery [35.8-38 Deg C] 36.0 DegC (08/09/22 9:51 AM) Peripheral Pulse Rate [60-100 bpm] 74 bp m (08/09/22 9:51 AM) Blood Pressure [89-139/60-90 mm Hg] 120/ 80mm Hg (08/09/22 9:51 AM) Height 170.3 cm (08/09/22 9:51 AM) Weight 103 kg (08/09/22 9:51 AM) Social History Social History Type Response Alcohol Never alcohol user Substance Abuse Never drug user Smoking Status Never smoker;Never; Tobacco Cessation Counseling Requested N/A entered on: 08/09/22 Sex Outpatient Summary note * Judy Guillaume RN: PERFORM Event Display: Ambulatory Patient Summary Authored Date: [id number] KRISTEL HASSAN :1955 Visit Date:08/09/2022 [facility] Visit Instructions Your Diagnosis Arthralgia M79.1 Myalgia M77.9 Tendonitis R53.83 Fatigue Bursitis Your Care Team Attending Physician - Vernon Richey MD Primary Care Physician - Chloe House NP Procedure History ???Procedure on lower leg (03/04/2021)???Abdominal hysterectomy???Arthroscopic knee operation???Cholecystectomy???Coronary heart disease monitoring???foot bone spur???Heart rate monitoring???Laparoscopic adjustable gastric banding???Percutaneous extraction of kidney stone with fragmentation procedur e???Radiofrequency ablation of lesion of heart Discharge Vitals Vital Signs Height: 170.3 cm Height Inches Conversion: 67 Weight: 103 kg Weight in Pounds (kg conversion): 226.6 Body Surface Area: 2.2074 m2 Body Mass Index: 35.51 kg/m2 Temperature Temporal Artery: 36 DegC Systolic Blood Pressure: 120 mm Hg Diastolic Blood Pressure: 80 mm Hg Peripheral Pulse Rate: 74 bpm Oxygen Saturation: 98 % HRA Pain Present: No What to do next Scheduled Follow-Up Appointments Tuesday 11:00 AM CDT ?? With: Vernon Richey MD Where: [facility] [address] [phone] You Need to Complete the Following BROOK Screen w/Reflex to Titer/Pattern, 08/09/2022, Blood, ROUTINE, Routine, Order for Future Visit, Nurse Collect, Print Label, Arthralgia M79.1 Myalgia M77.9 Tendonitis R53.83 Fatigue Bursitis, Not Required, Hold Until Collected C3 Complement, 08/09/2022, Blood, ROUTINE, Routine, Order for Future Visit, Nurse Collect, Print Label, Arthralgia M79.1 Myalgia M77.9 Tendonitis R53.83 Fatigue Bursitis, Not Required, Hold Until Collected C4 Complement, 08/09/2022, Blood, ROUTINE, Routine, Order for Future Visit, Nurse Collect, Print Label, Arthralgia M79.1 Myalgia M77.9 Tendonitis R53.83 Fatigue Bursitis, Not Required, Hold Until Collected CBC with Differential, 08/09/2022, Blood, ROUTINE, Routine, Order for Future Visit, Nurse Collect, Print Label, Arthralgia M79.1 Myalgia M77.9 Tendonitis R53.83 Fatigue Bursitis, Hold Until Collected Comprehensive Metabolic Profile, 08/09/2022, Blood, ROUTINE, Routine, Order for Future Visit, Nurse Collect, Print Label, Arthralgia M79.1 Myalgia M77.9 Tendonitis R53.83 Fatigue Bursitis, NotRequired, Hold Until Collected Creatine Kinase, 08/09/2022, Blood, ROUTINE, Routine, Order for Future Visit, Nurse Collect, Print Label, Arthralgia M79.1 Myalgia M77.9 Tendonitis R53.83 Fatigue Bursitis, Not Required, Hold Until Collected Rheumatoid Factor, Quantitative, 08/09/2022, Blood, ROUTINE, Routine, Order for Future Visit, Nurse Collect, Print Label, Arthralgia M79.1 Myalgia M77.9 Tendonitis R53.83 Fatigue Bursitis, NotRequired, Hold Until Collected Sedimentation Rate, 08/09/2022, Blood, ROUTINE, Routine, Order for Future Visit, Nurse Collect, Print Label, Arthralgia M79.1 Myalgia M77.9 Tendonitis R53.83 Fatigue Bursitis, Not Required, Hold Until Collected Referral Information Referral Information ? No Results Found ? Medications What How Much When Instructions Unchanged alendronate (alendronate 35 mg oral tablet) 1 tablet(s) By mouth Every week Unchanged ALPRAZolam (Xanax 0.25 mg oral tablet) 1 tablet(s) By mouth Daily as needed for anxiety Unchanged apixaban (Eliquis 5 mg oral tablet) 1 tablet(s) By mouth 2 times a day Unchanged atorvastatin (atorvastatin 40 mg oral tablet) 1 tablet(s) By mouth Daily Unchanged celecoxib (celecoxib 200 mg oral capsule) 1 capsule(s) By mouth 2 times a day with meals Unchanged esomeprazole (esomeprazole 40 mg oral delayed release capsule) 1 capsule(s) By mouth Daily before breakfast Unchanged estradiol (estradiol 1.5 mg oral tablet) 1 tablet By mouth Daily Unchanged fludrocortisone (fludrocortisone 0.1 mg oral tablet) 1 tablet(s) By mouth 3 times a day Unchanged furosemide Unchanged hydrOXYzine (hydrOXYzine pamoate 25 mg oral capsule) 1 capsule(s) By mouth Every 3 hours as needed for pain Unchanged lisinopril (lisinopril 10 mg oral tablet) 1 tablet(s) By mouth Daily Unchanged magnesium oxide (magnesium oxide 400 mg oral tablet) 1 tablet(s) By mouth Daily Duration: 14 day(s) Unchanged meclizine (Antivert 25 mg oral tablet) 1 tablet(s) By mouth 3 times a day as needed for for dizziness Unchanged mirabegron (Myrbetriq 50 mg oral tablet, extended release) 1 tablet(s) By mouth Daily Unchanged multivitamin with minerals (PreserVision AREDS 2 oral capsule) 2 times a day Unchanged potassium chloride (Jc Potassium 99 oral tablet) 1 tablet(s) By mouth Daily Unchanged solifenacin (VESIcare 10 mg oral tablet) 1 tablet(s) By mouth Daily Unchanged sotalol (Sotalol HCL AF) 40 Milligram By mouth 2 times a day Unchanged spironolactone (spironolactone 25 mg oral tablet) 1 tablet(s) By mouth Daily Unchanged traMADol (traMADol 50 mg oral tablet) 1 tablet(s) By mouth 3 times a day as needed for NEEDED FOR PAIN Duration: 30 day(s) Unchanged vibegron (Gemtesa 75 mg oral tablet) 1 tablet(s) By mouth Daily Medications and Immunizations Administered Medication Administrations ? No Results Found ? 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 Internal medicine Outpatient Note * Vernon Richey MD: PERFORM Event Display: Internal Medicine Office/Clinic Note Authored Date: [id number] Patient Information Name:KRISTEL HASSAN Address: [address] [place] [phone] Sex:Female Date of :1955 Emergency Contact:SOFIA TESFAYE Location:[facility] [address] Registration Date and Time:08/09/2022 11:00 CDT Primary Care Physician: Chloe House CLINICAL APPEALS SPECIALIST, Attending Physician: Vernon Richey MD, Chief Complaint follow up History of Present Illness RHEUMATOLOGY NOTE ?? MISSED VISIT DECEMBER 072021 ? LUNDY ISSUES Arthralgia Myalgia Tendinitis Fatigue DJD Irritable bowel syndrome History of atrial fibrillation Hyperlipidemia Vitamin D deficiency SORE ILIO TIBIAL BAND ?? SHE BROKE LEFT FIBULA,,,, BOTH LEGS HURT AND ARE SORE ?? PCP,,,,,,,,,,,,,,,,,,,,,,, [facility],,,,,[facility],,,,,[facility] ,,,,,,,,,,,,,,,, [facility] ,,,,,,,,,,,,,,,, [facility] ,,,,,,, [facility] ?? The patient presents today for evaluation [...] THIS VISIT. ?? Labs Rheumatoid Factor: <10.0 (06/09/20) RF Screen: Negative (10/27/20) Cyclic Citrullinated Peptide IgG: <16 (03/30/18) Sed Rate: 24 mm/hr (10/27/20) C3: 124 (06/16/20) C4: 25 (06/16/20) Uric Acid.: 3.6 mg/dL (11/29/19) Uric Acid: 4.6 mg/dL (06/16/20) HLA-B27: Negative (06/09/20) BROOK Screen: Positive Abnormal (10/27/20) BROOK ,,,,,,,,,,,,, 160 ?? LAB DONE BROOK,,,,,,,,,,,,,,,,1160 RHEUM,,,,,,,,,,, NEGATIVE HLA B27,,,,,,,,?? NEGATIVE CRP,,,,,,,,,,,,,,,?? NEGATIVE SED RATE,,,,,,?? NEGATIVE ?? [facility] Other Doctors: Primary Care MAGALYS. Rheumatology SERGIO. Cardiology MELISSA KERNS. Gastroenterology INDERJIT. OB-HEEL SE[facility] JAD. Ortho AUGUSTA SMITH Review of Systems General Weight Change >10lbs: No ?Fever: No ?Fatigue: No ?Difficulty Sleeping: No ?BloodTransfusion: No?Psych/Social Feeling blue/discouraged: No ?High anxiety/stress: No ?Loss of friends: No ?Feeling life has no purpose: No ?Feeling others are talking about you: No ?Feeling fear: No ?Hearing voices: No ?Marital or relationship problems: No ?animal assisted therapist awakenings: No?Head & Neck ROS Visual Changes (Not Glasses): No ?Dizziness: No ?Double vision: No ?Sinus problems:No ?Frequent persistent nosebleeds: No ?Ear pain: No ?Trouble hearing: No ?Ringing in Ears: No ?Hoarseness: No ?Persistent sore throat: [...] of arm or leg: No ?Joints Swelling/Stiffness: No ?Deformities of Back/Extremities: No ?Leg swelling: No ?Edema: No?Heart/Vascular Chest discomfort/tightness: No ?Irregular rapid heart beat: No ?Smothering feeling at night: No ?Ankle swelling: No ?Light headed: No ?Fainting episodes: No ?Varicose Veins: No ?Leg Pain with Walking: No ?Color/Temperature Changes of Extremities: No ?Leg SwellingROS: No?Neuro Numbness or tingling: No ?Severe frequent [...] No ?Changes in moles: No?Reproduction Inability to have an erection: No ?Inability to reach climax: No ?Infertility: No ?Painful intercourse: No ?Decreased sexual desire: No ?Sexually Transmitted Diseases: No?Women Breast pain/lumps: No ?Pelvic Pain: No ?Vaginal discharge: No ?Vaginal dryness: No ?Frequent sweats/hot flashes: No ?Menstrual problems: No ?Menopause: No ? Problems: No ?Baby weighing 9lbs or more: No?? Vitals and Measurements Vital Signs Height: 170.3 cm Height Inches Conversion: 67 Weight: 103 kg Weight in Pounds (kg conversion): 226.6 Body Surface Area: 2.2074 m2 Body Mass Index: 35.51 kg/m2 Temperature Temporal Artery: 36 DegC Systolic Blood Pressure: 120 mm Hg Diastolic Blood Pressure: 80 mm Hg Peripheral Pulse Rate: 74 bpm Oxygen Saturation: 98 % HRA Pain Present: No Physical Exam ? Examination:?? Rheumatology:?? CERVICAL SPINES:??normal [...] Mild swelling and tenderness.Mild decrease in ROM.?? HIPS:??Bilateral examination. Mild swelling and tenderness. Mild [...] appears well and healthy, NAD. Female Patient.?? HEENT??PERRLA??Sclera clear, noninjected, conjunctiva normal color, lids normal??EAC and TM normal??OP normal, no erythema, lesions or exudates.?? NECK??No thyromegaly.??No lymphadenopathy bilaterally.Trachea midline.?? RESPIRATORY??Normal respiratory effort. Clear to auscultation bilaterally. Good air movement.?? CARDIOVASCULAR??S1 S2 normal. Regular rhythm. No extrasystoles.??No murmurs, rubs or gallops.??Carotids 2+, no bruit. No JVD.?? BREAST??Not done. Done by OB-HEEL SEAT LASTER.?? PELVIC EXAM??Not done. Done by OB-HEEL SEAT LASTER.?? RECTAL EXAM??Not done. Done by OB-HEEL SEAT LASTER.?? GENITOURINARY??Not done. Done by OB-HEEL SEAT LASTER.?? GASTROINTESTINAL??Non Tender. No Hepatosplenomegaly. No rebound. No rigidity. Bowel Sounds are normal??.?? LYMPH??Bilaterally negative lymph nodes: Cervical (Anterior and Posterior chains), Axillary, Supraclavicular, Groin.?? EXTREMITY??No cyanosis, clubbing, or edema.?? MUSCULOSKELETAL??No kyphosis. No scoliosis. No tenderness. No muscle atrophy or spasm.?? SKIN??No rashes.??No skin lesions noted.?? NEUROLOGIC??No focal deficits. Motor normal 5/5, upper and lower extremity. Sensory normal. No tremor or cogwheeling..? Assessment/Plan 1.??Arthralgia Watch for progression of arthritis and synovitis. ??Go over long-term treatment strategy. ??See laborders Ordered: .[id number] Office Visit Level 4 Est BROOK Screen w/Reflex to Titer/Pattern C3 Complement C4 Complement CBC with Differential Comprehensive Metabolic Profile Creatine Kinase Return to Clinic - Established Patient Rheumatoid Factor, Quantitative Sedimentation Rate ?? 2.??M79.1 Myalgia Check CK. ??Check for weakness and tenderness Ordered: .[id number] Office Visit Level 4 Est BROOK Screen w/Reflex to Titer/Pattern C3 Complement C4 Complement CBC with Differential Comprehensive Metabolic Profile Creatine Kinase Return to Clinic - Established Patient Rheumatoid Factor, Quantitative Sedimentation Rate ?? 3.??M77.9 Tendonitis Low impact exercise. ??Yoga. Ordered: .11507 Office Visit Level 4 Est BROOK Screen w/Reflex to Titer/Pattern C3 Complement C4 Complement CBC with Differential Comprehensive Metabolic Profile Creatine Kinase Return to Clinic - Established Patient Rheumatoid Factor, Quantitative Sedimentation Rate ?? 4.??R53.83 Fatigue Check lab for signs of new underlying issues. Ordered: .[id number] Office Visit Level 4 Est BROOK Screen w/Reflex to Titer/Pattern C3 Complement C4 Complement CBC with Differential Comprehensive Metabolic Profile Creatine Kinase Return to Clinic - Established Patient Rheumatoid Factor, Quantitative Sedimentation Rate ?? 5.??Bursitis Watch for progression of bursitis of hip shoulder and knee. Ordered: .[id number] Office Visit Level 4 Est BROOK Screen w/Reflex to Titer/Pattern C3 Complement C4 Complement CBC with Differential Comprehensive Metabolic Profile Creatine Kinase Return to Clinic - Established Patient Rheumatoid Factor, Quantitative Sedimentation Rate ? We are going to address multiple serious [...] ?? RISK TO THE PATIENT IS HIGH Future Order Details BROOK Screen w/Reflex to Titer/Pattern, 08/09/2022, Blood, ROUTINE, Routine, Order for Future Visit, Nurse Collect, Print Label, Arthralgia M79.1 Myalgia M77.9 Tendonitis R53.83 Fatigue Bursitis, Not Required, Hold Until Collected C3 Complement, 08/09/2022, Blood, ROUTINE, Routine, Order for Future Visit, Nurse Collect, Print Label, Arthralgia M79.1 Myalgia M77.9 Tendonitis R53.83 Fatigue Bursitis, Not Required, Hold Until Collected C4 Complement, 08/09/2022, Blood, ROUTINE, Routine, Order for Future Visit, Nurse Collect, Print Label, Arthralgia M79.1 Myalgia M77.9 Tendonitis R53.83 Fatigue Bursitis, Not Required, Hold Until Collected CBC with Differential, 08/09/2022, Blood, ROUTINE, Routine, Order for Future Visit, Nurse Collect, Print Label, Arthralgia M79.1 Myalgia M77.9 Tendonitis R53.83 Fatigue Bursitis, Hold Until Collected Comprehensive Metabolic Profile, 08/09/2022, Blood, ROUTINE, Routine, Order for Future Visit, Nurse Collect, Print Label, Arthralgia M79.1 Myalgia M77.9 Tendonitis R53.83 Fatigue Bursitis, NotRequired, Hold Until Collected Creatine Kinase, 08/09/2022, Blood, ROUTINE, Routine, Order for Future Visit, Nurse Collect, Print Label, Arthralgia M79.1 Myalgia M77.9 Tendonitis R53.83 Fatigue Bursitis, Not Required, Hold Until Collected Rheumatoid Factor, Quantitative, 08/09/2022, Blood, ROUTINE, Routine, Order for Future Visit, Nurse Collect, Print Label, Arthralgia M79.1 Myalgia M77.9 Tendonitis R53.83 Fatigue Bursitis, NotRequired, Hold Until Collected Sedimentation Rate, 08/09/2022, Blood, ROUTINE, Routine, Order for Future Visit, Nurse Collect, Print Label, Arthralgia M79.1 Myalgia M77.9 Tendonitis R53.83 Fatigue Bursitis, Not Required, Hold Until Collected Problem List/Past Medical History Ongoing Arthralgia Bursitis Colon, diverticulosis E55.9 Vitamin D deficiency E78.5 Hyperlipidemia E87.6 Hypokalemia Gall stones Hammertoe HBP (high blood pressure) HCC: Atrial fibrillation I48.91 High cholesterol History of [place] measles IBS (irritable bowel syndrome) Injury of plantar plate of right foot Kidney stones M19.90 Arthritis M77.9 Tendonitis M79.1 Myalgia Myositis 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 R00.2 Palpitation R53.83 Fatigue Historical No qualifying data Procedure/Surgical History ???Procedure on lower leg (03/04/2021)???Abdominal hysterectomy???Arthroscopic knee operation???Cholecystectomy???Coronary heart disease monitoring???foot bone spur???Heart rate monitoring???Laparoscopic adjustable gastric banding???Percutaneous extraction of kidney stone with fragmentation procedur e???Radiofrequency ablation of lesion of heart Medications What How Much When Instructions Unchanged alendronate (alendronate 35 mg oral tablet) 1 tablet(s) By mouth Every week Unchanged ALPRAZolam (Xanax 0.25 mg oral tablet) 1 tablet(s) By mouth Daily as needed for anxiety Unchanged apixaban (Eliquis 5 mg oral tablet) 1 tablet(s) By mouth 2 times a day Unchanged atorvastatin (atorvastatin 40 mg oral tablet) 1 tablet(s) By mouth Daily Unchanged celecoxib (celecoxib 200 mg oral capsule) 1 capsule(s) By mouth 2 times a day with meals Unchanged esomeprazole (esomeprazole 40 mg oral delayed release capsule) 1 capsule(s) By mouth Daily before breakfast Unchanged estradiol (estradiol 1.5 mg oral tablet) 1 tablet By mouth Daily Unchanged fludrocortisone (fludrocortisone 0.1 mg oral tablet) 1 tablet(s) By mouth 3 times a day Unchanged furosemide Unchanged hydrOXYzine (hydrOXYzine pamoate 25 mg oral capsule) 1 capsule(s) By mouth Every 3 hours as needed for pain Unchanged lisinopril (lisinopril 10 mg oral tablet) 1 tablet(s) By mouth Daily Unchanged magnesium oxide (magnesium oxide 400 mg oral tablet) 1 tablet(s) By mouth Daily Duration: 14 day(s) Unchanged meclizine (Antivert 25 mg oral tablet) 1 tablet(s) By mouth 3 times a day as needed for for dizziness Unchanged mirabegron (Myrbetriq 50 mg oral tablet, extended release) 1 tablet(s) By mouth Daily Unchanged multivitamin with minerals (PreserVision AREDS 2 oral capsule) 2 times a day Unchanged potassium chloride (Jc Potassium 99 oral tablet) 1 tablet(s) By mouth Daily Unchanged solifenacin (VESIcare 10 mg oral tablet) 1 tablet(s) By mouth Daily Unchanged sotalol (Sotalol HCL AF) 40 Milligram By mouth 2 times a day Unchanged spironolactone (spironolactone 25 mg oral tablet) 1 tablet(s) By mouth Daily Unchanged traMADol (traMADol 50 mg oral tablet) 1 tablet(s) By mouth 3 times a day as needed for NEEDED FOR PAIN Duration: 30 day(s) Unchanged vibegron (Gemtesa 75 mg oral tablet) 1 tablet(s) By mouth Daily Immunizations Vaccine Date [id number] (COVID-19) ChAdOx1 vaccine 06/18/2020 Recorded SARS-CoV-2 (COVID-19) ChAdOx1 vaccine 05/28/2020 Recorded Allergies NKA Social History Alcohol Never alcohol user, 08/09/2022 Substance Abuse Never drug user, 08/09/2022 Tobacco Never smoker, Smokeless Tobacco use: Never. N/A Cessation Counseling., 08/09/2022 Family History ?Father ?Positive ?Aortic valve stenosis. ?Father ?Positive ?Cardiac arrest ?Brother ?Positive ?Heart disease ?Mother ?Positive ?Aneurysm ?Father ?Positive ?Myocardial infarction ?Father ?Positive ?Aortic valve disorder ?Father ?Positive ?Heart disease ?Mother ?Positive ?Hypertension ?Mother ?Positive ?Heart disease ? POC Results Event Name?? Event Result?? Date/Time?? Oxygen Saturation 98 % 08/09/22 09:51:00 ? Voice to Text Technology Disclaimer This note may contain text inserted via Dragon or other voice to text assistive technology and on air announcer, variances may occur. Note * Event Display: Privacy Practice Authored Date: * Event Display: Consent/Registration Forms Authored Date: * Event Display: Consent/Registration Forms Authored Date: * Event Display: ROI_Correspondence Authored Date: * Event Display: ROI_Correspondence Authored Date: * HPF, Image_Migration: VERIFY, PERFORM Event Display: ROI_Correspondence Authored Date: Patient Care team information Care Team Personnel Name: Vernon Richey MD Position: Physician - Internal Medicine Member Role: Specialist Physician Address: Address: [address] [place] [address] [place] Name: Chloe House CLINICAL APPEALS SPECIALIST Position: [facility] FAX ONLY - MD NOT ON STAFF Member Role: Primary Care Physician Address: Address: [address] [place] [address] Name: Vernon Richey MD Position: Physician - Internal Medicine Med Service: Lead Developer Resource Paraprofessional Role: Attending Physician Address: Address: [address] [place] [address] Care Team Related Persons Name: REGINE HASSAN Address: [address] [phone] [facility] Name: SOFIA TESFAYE
--- OUTSIDE RECORDS SUMMARY | 2024-04-04 19:39 | XMS_ITS | Continuity of Care Document ---
Author Organization [facility] Address [address] [place] [id number] Care Team Providers Care Manager Research And Development Name Role Phone Bianca Aggarwal Alayna Primary Care Physician [phone] Encounter [facility] Financial Number [id number] Date(s): 06/24/23 - 06/24/23 [facility] [address] [phone] Encounter Diagnosis Pacemaker lead malfunction(Discharge Diagnosis) - 06/24/23 Paroxysmal atrial fibrillation(Discharge Diagnosis) - 06/24/23 Chronic anticoagulation(Discharge Diagnosis) - 06/24/23 Discharge Disposition: Home or Self Care Attending Physician: Keith Condon MD Referring Physician: Roger Scales MD Allergies, Adverse Reactions, Alerts Substance Reaction Severity Status iodine Active Latex Rash Active Assessment and Plan Future Appointments Appointment Date:08/02/2023 09:30:00 AM Scheduled Provider: Location:[facility] Cardiology Appointment Type:Echocardiogram Complete Study Appointment Date:08/02/2023 11:00:00 AM Scheduled Provider:Roger Scales MD Location:[facility] Appointment Type:[facility] Established Patient Immunizations Given and Recorded Vaccine [...] Oral, daily, 90 tablet(s), Tablet(s), 5, 5, Do Not Route Start Date: 06/06/23 Status: Ordered celecoxib 200 mg oral capsule 1 capsule(s), Oral, bid with meals, 180 capsule(s), 0, Route to Pharmacy Electronically, [facility], [id number], 170.3, cm, 08/09/22 11:04:00 CDT, Height, 103, kg, 08/09/22 11:04:00 CDT, Weight Start Date: 04/06/23 Status: Ordered Eliquis 5 mg oral tablet 5 mg, 1 tablet(s), Oral, bid, 60 tablet(s), Tablet(s), 0 Start Date: 09/06/16 Status: Ordered estradiol 1.5 mg oral tablet 1 tablet, Oral, daily, 0 Start Date: 09/06/16 Status: Ordered fludrocortisone 0.1 mg oral tablet 0.1 mg, 1 tablet(s), Oral, tid, 0 Start Date: 06/24/23 Status: Ordered Gemtesa 75 mg oral tablet 75 mg, 1 tablet(s), Oral, daily, 0 Start Date: 08/03/21 Status: Ordered Lasix 20 mg oral tablet 20 mg, 1 tablet(s), Oral, daily, 0 Start Date: 06/24/23 Status: Ordered lisinopril 20 mg oral tablet 20 mg, 1 tablet(s), Oral, daily, 90 tablet(s), Tablet(s), 4, 4, Do Not Route Start Date: 06/06/23 Status: Ordered magnesium oxide 400 mg oral [...] PAIN, Route to Pharmacy Electronically, [facility], [id number], 170.5, cm, 12/17/2021 1121, Height, 99.7, kg, 12/17/2021 1121, Weight Start Date: 06/15/22 Stop Date: 07/15/22 Status: Ordered Xanax 0.25 mg oral tablet [...] Active Dizziness Confirmed Active 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 on clinical research monitor Confirmed Active R53.83 Fatigue Confirmed Active Injury of plantar plate of right foot Confirmed Active History of Indian measles 1 Confirmed Active Hammertoe Confirmed Active Cardiac murmur Confirmed Active High cholesterol Confirmed Active E78.5 Hyperlipidemia Confirmed Active HBP (high blood pressure) Confirmed Active E87.6 Hypokalemia Confirmed Active M19.90 Arthritis Confirmed Active Arthralgia Confirmed Active Kidney stones Confirmed Active Chronic anticoagulation Confirmed Active M79.1 Myalgia Confirmed Active Myositis Confirmed Active R00.2 Palpitation Confirmed Active Paroxysmal atrial fibrillation Confirmed Active Syncope Confirmed Active M77.9 Tendonitis Confirmed Active E55.9 Vitamin D deficiency Confirmed Active 1states she has POHS due to thai measles when she was 5 affecting her [...] Range]: 1 Peripheral Pulse Rate [60-100 bpm] 63 bp m (06/24/23 11:38 AM) Blood Pressure [89-139/60-90 mm Hg] 150/ 80mm Hg *H* (06/24/23 11:38 AM) Height 63 cm (06/24/23 11:38 AM) Weight 103.42 kg (06/24/23 11:38 AM) Social History Social History Type Response Alcohol Never alcohol user Substance Abuse Never drug user Smoking Status Never smoker;Never; Tobacco Cessation Counseling Requested N/A entered on: 08/09/22 Sex Note * Maria De Jesus Shipley [employer] Worker: PERFORM Event Display: Patient Documentation AMB Authored Date: * Lana Trinidad MA: PERFORM Event Display: Device Check Documentation Authored Date: * Maria De Jesus Shipley [place]: PERFORM Event Display: Medication Records Authored Date: * Event Display: ROI_Correspondence Authored Date: * Event Display: ROI_Correspondence Authored Date: * Event Display: ROI_Correspondence Authored Date: EKG study * Lana Trinidad MA: PERFORM Event Display: In Office EKG Authored Date: Electrophysiology Office/Clinic Note * Keith Condon MD: PERFORM Event Display: Electrophysiology Office/Clinic Note Authored Date: Patient Information Name:KRISTEL HASSAN Address: [address] [place] [address] [place], [place] [id number] Sex:Female Date of :1955 Emergency Contact:SOFIA TESFAYE Location:[facility] Registration Date and Time:06/24/2023 11:14 SYSTEMS NAVIGATOR Primary Care Physician: Bianca Aggarwal MEDICAL PHYSIOLOGIST, Attending Physician: Keith Condon MD, Chief Complaint new patient- pacemaker malfunction History of Present Illness ? She is a 68 yo woman with paroxysmal atrial fibrillation since 2009, S/P ablation for AF in December 2010 and again February 2011 and now on sotalol and Eliquis.?? She has no history of CAD; cardiac catheterization November 2022 reported normal coronary anatomy and normal LV systolic function.? She had a syncopal event??in November??2022; this led to the implantation of an implanted loop recorder??in December??2022.?? Thereafter she had several spells of lightheadedness and near syncope??which did not correlate with any detections by the loop recorder.?? Ultimately, she had an episode??that correlated with a 3-second pause,??and led to the recommendation for pacemaker?? plantation. ??It seems that??she was having??rapid atrial fibrillation??and pauses, tachy-carlos??syndrome.?? A??Biotronik??dual-chamber pacemaker was implanted??on 21 March 2023.?? She has not had any further lightheaded spells since the pacemaker was implanted.?Unfortunately, she experienced a lead dislodgment??and on 25 April return to the EP laboratory??for repositioning of her RV lead.?? When the RV lead??was repositioned??she began experiencing??an intermittent thumping in her chest,which she describes as pulsing .?? Infrequently,??this is accompanied by the sensation of a??an electric shock??throughout her entire body.?? Her physicians, suspecting AF,??increased her sotalol??to 80 mg??twice daily.?? While this did not stop the thumping or the electric shocks??she has not hadany further atrial fibrillation since the increased dose of sotalol. ? We evaluated her pacemaker.?? The atrial lead is working perfectly??with a sensed P wave of 4.0 mV??and a threshold of 1 V at 0.4 ms, impedance of 643 ohms.?? The ventricular lead is working poorly, with a sensed R wave of 8.6 mV??and a capture threshold of 3.4 V at 1.0 ms.?? Every time she is paced??by the RV lead, even at outputs at the threshold,??she experiences the pulsingsensation??and thumping in her chest.?? We were not able to reproduce the electric shock sensation that she described. ? Her EKG today??showed normal sinus rhythm??at??63 bpm, pacing inhibited,??normalEKG. Review of Systems The pertinent cardiovascular??positives and negatives??are per HPI.?? Additionally,??no palpitations, lightheadedness, dizziness or syncope.?? No exertional chest discomfort or dyspnea.?? No??new??development of headaches, visual changes, weakness??or numbness.?? No abdominal??discomfort,??nausea, v omiting,??diarrhea, constipation.?? No dysuria. ??No lower extremity edema.?? No nosebleeds, bleeding gums, hematuria or blood per rectum.?? Other systems are negative. Vitals and Measurements Vital Signs Height: 63 cm Height Inches Conversion: 24.8 Weight: 103.42 kg Weight in Pounds (kg conversion): 227.5 Body Surface Area: 1.3453 m2 Body Mass Index: 260.57 kg/m2 Systolic Blood Pressure:??150 mm Hg??High Diastolic Blood Pressure: 80 mm Hg Peripheral Pulse Rate: 63 bpm Physical Exam Const:?Pleasant, Appropriate, not confused, not in extremis?? Eyes:?No scleral icterus, gaze appropriate,??not disconjugate ENMT: No thyromegaly, neck circumference??ok, otherwise normocephalic, atraumatic Neck:?No cervical lymphadenopathy or masses.?? No jugular venous distention.?? No carotid bruits. Resp:?Breathing unlabored, speech unlabored, chest clear to auscultation, no cough, no wheeze,no rales CV: ?Regular??rate,??regular??rhythm, normal S1 and S2, no gallop,??no notable murmur,??no premature beat Chest:?The pacemaker site in the left pectoral region was well-healed without??swelling or drainage. ??The overlying skin??is free of??erythema, induration??and thinning GI: ?Abdomen is??soft, nontender, nonrigid, with normoactive, normal pitch bowel sounds, no organomegaly,??abdominal aorta nonpalpable M-S:?No??kyphosis or scoliosis. ??No chest wall tenderness.?? No??spinal tenderness. Neuro:?? A&O, mood and affect appropriate, no motor deficits noted Skin:?No clubbing, cyanosis.?No??lower extremity edema. ??Skin otherwise warm and dry Puilses:?? 2+ Bilateral??posterior tibialis??pulses Gait:??normal Assessment/Plan 1.??Pacemaker lead malfunction Her dual-chamber pacemaker was implanted??on 21 March 2023, for rapid atrial fibrillation??and sinus pauses.?? Unfortunately, she experienced an RV lead dislodgment, repositioned??on 25 April.?? Since??repositioning of the RV lead??she experiences a thumping in her chest??that is??completely reproducible with any RV pacing.?? The RV threshold is quite elevated.?? We reprogrammed??the pacemakerto DDD with a long AV delay??to??minimize??the need for ventricular pacing??and we did provide a 2:1 safety margin in the ventricle.?? I recommend??revising the RV lead at this time??because it is a new lead that would be easily removed and repositioned. ??If we delay the leads will??becomes quite scarred down??and she will have??this nonfunctioning piece of hardware??eminently.?I will send the patient for a chest x-ray to see exactly where this RV lead is located.?? Should it be??located in an unsafe location we will reposition it promptly.?? Otherwise??I recommend relocating it electively??in the near future.?? 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 ?? 2.??Paroxysmal atrial fibrillation She has a history of paroxysmal atrial fibrillation. ??She is anticoagulated and takes sotalol. ??Recently she has been having bouts of rapid atrial fibrillation.?? Her sotalol dosage was increased to 80 mg twice daily. ??In the short while since that dosage change was made she has been free of atrial fibrillation. ?? 3.??Chronic anticoagulation She is anticoagulated with Eliquis.?? She has a [id number] score of??3 for age, gender??and hypertension.?? She reports no abnormal bleeding.?? We will continue anticoagulation. ?? Orders: CHEST 2 VIEWS Follow Up With When Contact Information Keith Condon MD, Cardiology, Internal Medicine In 1 month [address] [place], [place] [address]- Additional Instructions: For RV lead revision Problem List/Past Medical History Ongoing Arthralgia Bursitis Cardiac murmur Chronic anticoagulation Colon, diverticulosis Dizziness E55.9 Vitamin D deficiency E78.5 Hyperlipidemia E87.6 Hypokalemia Gall stones Hammertoe HBP (high blood pressure) HCC: Atrial fibrillation I48.91 High cholesterol History of Indian measles IBS (irritable bowel syndrome) Injury of plantar plate of right foot Kidney stones M19.90 Arthritis M77.9 Tendonitis M79.1 Myalgia Myositis 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 on clinical research monitor Pacemaker Pacemaker lead malfunction Paroxysmal atrial fibrillation [...] oral tablet, 5 mg= 1 tablet(s), Oral, bid estradiol 1.5 mg oral tablet, 1 tablet, Oral, daily fludrocortisone 0.1 mg oral tablet, 0.1 mg= 1 tablet(s), Oral, tid Gemtesa 75 mg oral tablet, 75 mg= 1 tablet(s), Oral, daily Lasix 20 mg oral tablet, 20 mg= 1 tablet(s), Oral, daily lisinopril 20 mg oral tablet, 20 mg= 1 tablet(s), Oral, daily, 4 refills magnesium oxide 400 mg oral tablet, 400 mg= 1 tablet(s), Oral, daily potassium chloride 20 mEq oral tablet, extended release, 20 mEq= 1 tablet(s), Oral, daily with breakfast PreserVision AREDS PreserVision AREDS 2 oral capsule, bid Sotalol HCL AF, 80 mg, Oral, bid spironolactone 25 mg oral tablet, 25 mg= 1 tablet(s), Oral, daily traMADol 50 mg oral tablet, 1 tablet(s), Oral, tid, PRN Xanax 0.25 mg oral tablet, 0.25 mg= [...] other voice to text assistive technology and sales planning analyst, variances may occur. Patient Care team information Care Team Personnel Name: Vernon Richey MD Position: Physician - Internal Medicine Member Role: Specialist Physician Address: Address: [address] [facility] [address] Name: Bianca Aggarwal MEDICAL PHYSIOLOGIST Position: [facility] FAX ONLY - MD NOT ON STAFF Member Role: Primary Care Physician Address: Address: [address] [place] [address] Name: Roger Scales MD Position: Physician - Cardiology Med Service: Animal Stunner Manager Research And Development Role: Referring Physician Address: Address: [address] [place] [address] [address] [place], [place] [address]- Care Team Related Persons Name: REGINE HASSAN Address: [address] [phone] [place] Name: SOFIA TESFAYE
--- OUTSIDE RECORDS SUMMARY | 2024-04-04 19:39 | XMS_ITS | Patient Health Summary ---
Author Organization [facility] Address [address] [place] [address] Care Team Providers Care Polytechnic Teacher Name Role Phone Jasen Bianca AURE-QUALITY CONTROL TESTER Primary Care Provider [phone] Note from [facility],non-owned Affiliates and Associated Physician Practices is amultiple site organization consisting of ambulatory clinics and hospital sitesin [place], [place], [place] and [place]. This disclosure is being madepursuant to the Care Everywhere program and may not contain all information available regarding this patient. Last updated 18.[facility] Allergies * Flecainide(Palpitations,Other) -High Criticality * Iodine(Unknown,Itching) -High Criticality * Latex(Unknown,Itching) -High Criticality * Morphine(Nausea and/or Vomiting) -Low Criticality * Oxycodone(Other) Medications * Be aware that medications may not be up to date on this document. Alwaysverify current medications with the patient. * traMADol (ULTRAM) 50 MG tablet Take 50 mg by mouth 2 times daily * omeprazole (PRILOSEC) 40 MG capsule Take 40 mg by mouth daily before breakfast. * estradiol (ESTRACE) 1 MG tablet Take 1 mg by mouth once daily. * meclizine (ANTIVERT) 25 MG tablet Take 25 mg by mouth 3 times daily as needed. * atorvastatin (LIPITOR) 40 MG tablet Take 80 mg by mouth at bedtime * magnesium oxide (MAG-OX) 400 MG tablet Take 400 mg by mouth once daily. * furosemide (LASIX) 20 MG tablet Take 20 mg by mouth once daily * sotalol (BETAPACE) 80 MG tablet Take 40 mg by mouth 2 times daily. * celecoxib (CELEBREX) 200 MG capsule Take 200 mg by mouth 2 times daily. * apixaban (ELIQUIS) 5 MG tablet Take 5 mg by mouth 2 times daily * solifenacin (VESICARE) 10 MG tablet Take 10 mg by mouth once daily * Multiple Vitamins-Minerals (PRESERVISION AREDS PO) Take by mouth 2 times daily * ALPRAZolam (XANAX) 0.25 MG tablet Take 0.25 mg by mouth 3 times daily as needed for Anxiety * fludrocortisone (FLORINEF) 0.1 MG tablet Take 0.1 mg by mouth 3 times daily * fluticasone propionate (FLONASE) 50 MCG/ACT nasal spray(Started 03/26/2018) [place] 2 sprays into each nostril once daily * oxybutynin CR 24hr (DITROPAN-XL) 10 MG tablet Take 10 mg by mouth once daily * potassium chloride (KLOR-CON) 20 MEQ packet Take 20 mEq by mouth once daily * lisinopril (PRINIVIL; ZESTRIL) 40 MG tablet Take 40 mg by mouth once daily * mirabegron ER 24hr (MYRBETRIQ) 50 MG tablet Take 50 mg by mouth once daily * alendronate (FOSAMAX) 35 MG tablet Take 35 mg by mouth every 7 days before meal Take in morning with full glass of water on empty stomach and remain upright for 30 min * benzonatate (TESSALON) 100 MG capsule(Started 08/17/2020) Take 1-2 tab PO tid prn. Max 6 tabs per day. * fluticasone propionate (FLONASE) 50 MCG/ACT nasal spray(Started 08/17/2020) Dunellen 2 (two) sprays into each nostril once daily * cetirizine (ZYRTEC) 10 MG tablet(Started 08/17/2020) Take 1 (one) tablet by mouth once daily * amLODIPine (Norvasc) 10 MG tablet(Started 03/31/2023) TAKE 1 TABLET BY MOUTH ONCE DAILY STOP TAKING THE 5MG * amoxicillin-clavulanate (Augmentin) 875-125 MG tablet(Started 03/16/2022) * atorvastatin (Lipitor) 80 MG tablet(Started 05/13/2019) ATORVASTATIN 80MG TABLETS * celecoxib (CeleBREX) 200 MG capsule(Started 04/16/2021) 1 capsule(s), Oral, bid with meals, 180 capsule(s), 1, 0, Route to Pharmacy Electronically, [facility], NCPDP_ID-[id number], 170.3, cm, 10/27/2020 1101, Height, 97.9, kg, 10/27/2020 1101, Weight * cephalexin (Keflex) 500 MG capsule(Started 04/25/2023) TAKE 1 CAPSULE BY MOUTH 4 TIMES DAILY * clindamycin (Cleocin) 150 MG capsule(Started 12/03/2022) Take 1 (one) capsule by mouth 3 times daily * cyclobenzaprine (Flexeril) 5 MG tablet(Started 07/07/2023) Take 1 (one) tablet by mouth 3 times daily as needed FOR MUSCLE SPASM * doxycycline hyclate (Vibramycin) 100 MG capsule(Started 08/30/2022) TAKE 1 CAPSULE BY MOUTH TWICE DAILY FOR 10 DAYS * erythromycin (Romycin) 5 MG/GM ophthalmic ointment(Started 04/21/2023) APPLY A 1/4 INCH RIBBON UNDER THE LEFT EYE THREE TIMES DAILY FOR 7 DAYS * estradiol (Estrace) 0.5 MG tablet(Started 07/27/2023) Take 1 (one) tablet by mouth once daily * hyoscyamine sulfate 0.125 MG/ML solution Take by mouth every 4 hours as needed * levoFLOXacin (Levaquin) 500 MG tablet(Started 12/03/2022) Take 1 (one) tablet by mouth once daily * vibegron (Gemtesa) 75 MG tablet(Started 08/03/2021) Take 1 (one) tablet by mouth once daily * traMADol (Ultram) 50 MG tablet(Started 12/11/2021) Take 1 (one) tablet by mouth every 6 hours * spironolactone (Aldactone) 25 MG tablet(Started 08/05/2021) Take 1 (one) tablet by mouth once daily * potassium chloride ER (Klor-Con M) 20 MEQ tablet(Started 05/05/2019) potassium chloride 20 mEq tablet,ER particles/crystals * PARoxetine (Paxil) 10 MG tablet(Started 02/14/2023) TAKE 1/2 (ONE-HALF) TABLET BY MOUTH IN THE MORNING ONCE DAILY * oxyCODONE-acetaminophen (Percocet) 5-325 MG tablet(Started 03/21/2023) TAKE 1 TABLET BY MOUTH EVERY 8 HOURS NEEDED FOR PAIN DO NOT DRIVE OR USE ANY MACHINERY FOR 12 HOURS AFTER TAKING THIS MEDICATION * omeprazole (PriLOSEC) 40 MG capsule(Started 04/23/2022) Take 1 (one) capsule by mouth every morning * methylPREDNISolone (Medrol Dosepak) 4 MG tablet(Started 04/07/2023) TAKE BY MOUTH DIRECTED ON INSIDE OF PACKAGE * Magnesium Oxide -Mg Supplement 400 (240 Mg) MG(Started 04/29/2022) Take 1 (one) tablet by mouth once daily * magnesium lactate 84 MG (7MEQ) tablet Take 1 (one) tablet by mouth once daily * Magnesium 400 MG(Started 04/29/2022) Take 400 mg by mouth once daily * lisinopril (Prinivil; Zestril) 40 MG tablet(Started 09/23/2019) LISINOPRIL 40MG TABLETS Active Problems Problem Noted Date Diagnosed Date 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 Social History Tobacco Use Types Packs/Day Years Used Date Smoking Tobacco: Never Smokeless Tobacco: Never Tobacco Cessation:Counseling Given: No Alcohol Use Standard Drinks/Week Comments No 0 (1 standard drink = 0.6 oz pur e alcohol) Sex and Gender Information Value Date Recorded Sex Assigned at Not on file Gender Identity Not on file Sexual Orientation Not on file Last Filed Vital Signs Vital Sign Reading Time Taken Comments Blood Pressure 110/70 08/17/2020 11:59 AM CDT Pulse 75 08/17/2020 11:59 AM CDT Temperature 36.8 ??C (98.2 ??F) 08/17/2020 11:59 AM C DT Respiratory Rate 16 08/17/2020 11:59 AM CDT Oxygen Saturation 97% 08/17/2020 11:59 AM CDT Inhaled Oxygen Concentration - - Weight 96.6 kg (213 lb) 08/17/2020 11:59 AM CDT Height 170.2 cm (5' 7 ) 08/17/2020 11:59 AM CDT Body Mass Index 33.36 08/17/2020 11:59 AM CDT Procedures * OPH OCT TEST SLU(Performed 03/30/2022) Performed for 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 * STREP A SCREEN - POINT OF CARE (AMB) STL(Performed 08/17/2020) Performed for Acute URI * OPH OCT TEST SLU(Performed 04/25/2019) Performed for 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 * OPH OCT TEST [facility]U(Performed 04/25/2019) Performed for 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 * OPH OCT TEST [facility]U(Performed 04/06/2018) Performed for Histoplasmosis * CARDIAC PROCEDURE ORDER(Performed 05/25/2013) * CARDIAC PACER/DEFIB ORDER(Performed 04/20/2013) * CARDIAC CATH CONSULT(Performed 04/17/2013) Results * OCT (03/30/2022 1:50 PM BENCH MANAGER) Anatomical Region Laterality Modality Other 03/30/2022 1:50 PM BENCH MANAGER Hemalatha Landers OD OPHTHALMOLOGY SERVIC ES ORDERABLES * STREP A SCREEN - POINT OF CARE (AMB) STL (08/17/2020 12:15 PM CDT) Strep A Rapid POCT Negative Negative [facility] Strep A Internal Control Present [facility] Lot # [id number] [facility] Expiration Date 04/17/[address] [facility] Throat ENTIRE THROAT (SURFACE REGION OF NECK) / Unknown 08/17/2020 12:15 PM CDT Apryl Redmond DESIGN ENGINEER AGRICULTURAL EQUIPMENT-QUALITY CONTROL TESTER LAB - POINT OF CARE ORDERABLES [facility] [id number] [phone] * OCT (04/25/2019 1:39 PM BENCH MANAGER) Anatomical Region Laterality Modality Other 04/25/2019 1:39 PM BENCH MANAGER Cherelle Weaver MD OPHTHALMOLOGY SERVIC ES ORDERABLES * OCT (04/25/2019 12:00 AM BENCH MANAGER) Anatomical Region Laterality Modality Other 04/25/2019 Cherelle Weaver MD OPHTHALMOLOGY SERVIC ES ORDERABLES * OPH OCT TEST [facility]U (04/06/2018 10:01 AM BENCH MANAGER) Anatomical Region Laterality Modality Other 04/06/2018 10:0 1 AM BENCH MANAGER Kenya Wells MD OPHTHALMOLOGY SERVIC ES ORDERABLES * CARDIAC PROCEDURE ORDER (05/25/2013 8:22 PM BENCH MANAGER) Narrative 05/25/2013 8:22 PM BENCH MANAGER Ordered by an unspecified provider. Transcriptions Document, Scanned - 04/20/2013 8:37 PM CST Document, Scanned - 05/25/2013 8:22 PM CST Scanned Document CARDIAC SERVICES ORD ERABLES * CARDIAC PACER/DEFIB ORDER (04/20/2013 8:37 PM BENCH MANAGER) Narrative 04/20/2013 8:37 PM BENCH MANAGER Ordered by an unspecified provider. Transcriptions Document, Scanned - 04/20/2013 8:37 PM CST Scanned Document CARDIAC SERVICES ORD ERABLES * TILT TABLE CONSULT (04/17/2013 10:50 AM BENCH MANAGER) Narrative [facility] - 04/17/2013 10:50 AM BENCH MANAGER Kenan Thakkar MD ? 04/17/2013 10:50 AM HEAD-UP TILT TABLE STUDY FINAL REPORT Brenna Chatterjee [id number] 1955 58 y.o. female Referring Physician:Dr. Thakkar History/Reason for Study: recurrent syncope Prescriptions prior to admission Medication Status Sig Dispense Refill ? ? traMADol (ULTRAM) 50 MG tablet Active Take 50 mg by mouth every 6 hours as needed. ? omeprazole (PRILOSEC) 40 MG capsule Active Take 40 mg by mouth daily before breakfast. ? estradiol (ESTRACE) 1 MG tablet Active Take 1 mg by mouth once daily. ? meclizine (ANTIVERT) 25 MG tablet Active Take 25 mg by mouth 3 times daily as needed. ? atorvastatin (LIPITOR) 40 MG tablet Active Take 40 mg by mouth at bedtime. ? magnesium oxide (MAG-OX) 400 MG tablet Active Take 400 mg by mouth once daily. ? furosemide (LASIX) 20 MG tablet Active Take 20 mg by mouth 2 times daily as needed. ? rivaroxaban (XARELTO) 20 MG tablet Active Take 20 mg by mouth once daily. ? sotalol (BETAPACE) 80 MG tablet Active Take 40 mg by mouth 2 times daily. ? celecoxib (CELEBREX) 200 MG capsule Active Take 200 mg by mouth 2 times daily. ? Procedure: ??The patient was placed on the tilt table and connected to monitoring devises. ??A 20 gauge catheter was inserted. Blood pressure, heart rate and oxygen saturation were monitored every minute. Following baseline monitoring in the supine position, the patient was tilted upright to 80 degrees. The patient was returned to the supine position after20 minutes and monitored until vital signs returned to baseline values. Results: Vital Signs: ??Baseline: BP: 120/80 HR: 70 ??Ending: BP: 120/80 ??HR: 76 ??Duration: ??20 minutes ?Symptoms: none Length of the study was 1 hour. ??The patient was stable at the conclusion of the study. Impressions: negative tilt table test Recommendations: implant a loop recorder Thank you, Kenan Thakkar MD ?? Procedure Note Kenan Thakkar MD - 04/17/2013 10:47 AM CST HEAD-UP TILT TABLE STUDY FINAL REPORT Brenna Chatterjee [id number] 1955 58 y.o. female Referring Physician:Dr. Thakkar History/Reason for Study: recurrent syncope Prescriptions prior to admission Medication Status Sig Dispense Refill ? ? traMADol (ULTRAM) 50 MG tablet Active Take 50 mg by mouth every 6 hoursas needed. ? ? omeprazole (PRILOSEC) 40 MG capsule Active Take 40 mg by mouth dailybefore breakfast. ? ? estradiol (ESTRACE) 1 MG tablet Active Take 1 mg by mouth once daily. ? ? meclizine (ANTIVERT) 25 MG tablet Active Take 25 mg by mouth 3 timesdaily as needed. ? ? atorvastatin (LIPITOR) 40 MG tablet Active Take 40 mg by mouth atbedtime. ? ? magnesium oxide (MAG-OX) 400 MG tablet Active Take 400 mg by mouth oncedaily. ? ? furosemide (LASIX) 20 MG tablet Active Take 20 mg by mouth 2 times dailyas needed. ? ? rivaroxaban (XARELTO) 20 MG tablet Active Take 20 mg by mouth oncedaily. ? ? sotalol (BETAPACE) 80 MG tablet Active Take 40 mg by mouth 2 timesdaily. ? ? celecoxib (CELEBREX) 200 MG capsule Active Take 200 mg by mouth 2 timesdaily. Procedure: The patient was placed on the tilt table and connected tomonitoring devises. A 20 gauge catheter was inserted. Blood pressure,heart rate and oxygen saturation were monitored every minute. Following baseline monitoring in the supine position, the patient wastilted upright to 80 degrees. The patient was returned to the supine position after20 minutes andmonitored until vital signs returned to baseline values. Results: Vital Signs: Baseline: BP: 120/80 HR: 70 Ending: BP: 120/80 HR: 76 Duration: 20 minutes Symptoms: none Length of the study was 1 hour. The patient was stable at the conclusionof the study. Impressions: negative tilt table test Recommendations: implant a loop recorder Thank you, Kenan Thakkar MD Kenan Thakkar MD ECHO ORDERABLES Performing Organization Address City/State/[facility] Co de Phone Number [facility] Care Teams Polytechnic Teacher Relationship Specialty Start Date End Date Bianca Aggarwal APRN-QUALITY CONTROL TESTER [address] [place] [id number] PCP - General 09/29/21
--- OUTSIDE RECORDS SUMMARY | 2024-04-04 19:39 | XMS_ITS | Encounter Summary ---
Author Organization [facility] Address [address] [place] [address] Care Team Providers Care Operating Room Nurse Name Role Phone Bianca Aggarwal Primary Care Provider [phone] Encounter Details Date Type Department Care Team (Latest Contact Info) Description 08/17/2020 Travel Social History Tobacco Use Types Packs/Day Years Used Date Smoking Tobacco: Never Smokeless Tobacco: Never Alcohol Use Standard Drinks/Week Comments No 0 (1 standard drink = 0.6 oz pur e alcohol) Sex and Gender Information Value Date Recorded Sex Assigned at Not on file Gender Identity Not on file Sexual Orientation Not on file documented as of this encounter Plan of Treatment Upcoming Encounters Date Type Department Care Team (Late st Contact Info) Description 08/13/2024 10:00 AM CDT Office Visit [facility] - Ophthalmology [address] [place] [phone] Hemalatha Landers, OD [address] [place] [address] [place] [id number] documented as of this encounter Visit Diagnoses Not on filedocumented in this encounter Care Teams Operating Room Nurse Relationship Specialty Start Date End Date Bianca Aggarwal APRN-CNP [address] [place] [address] PCP - General Nurse Practitioner 08/17/20 08/09/21 documented as of this encounter
--- OUTSIDE RECORDS SUMMARY | 2024-04-04 19:39 | XMS_ITS | Continuity of Care Document ---
Author Organization [facility] Address [address] [id number] Care Team Providers Care Focusing Machine Operator Name Role Phone Bianca Aggarwal Alayna Primary Care Physician Encounter [facility] Financial Number [id number] Date(s): 09/09/23 - 09/09/23 [facility] [address] [phone] Encounter Diagnosis Afib(Discharge Diagnosis) - 09/09/23 Discharge Disposition: Home or Self Care Attending Physician: Keith Condon MD Referring Physician: Roger Scales MD Allergies, Adverse Reactions, Alerts Substance Criticality Severity Reaction Reaction Severity Status iodine Active Latex Rash Active Assessment and Plan Future Appointments Appointment Date:12/02/2023 11:30:00 AM Scheduled Provider:Keith Condon MD Location:[facility] Appointment Type:[facility] EP Established Patient Appointment Date:12/26/2023 11:30:00 AM Scheduled Provider:Roger Scales MD Location:[facility] Appointment Type:[facility] EP Established Patient Appointment Date:03/14/2024 10:00:00 AM Scheduled Provider:[facility]on [facility] Patient Immunizations Given and Recorded [...] 1 tablet(s), Oral, daily, 90 tablet(s), Tablet(s), 0 Start Date: 08/24/23 Status: Ordered celecoxib 200 mg oral capsule 200 mg, 1 capsule(s), Oral, daily, PRN, 10 capsule(s), Capsule(s), 0, for pain Start Date: 08/24/23 Status: Ordered celecoxib 200 mg oral capsule 200 mg, 1 capsule(s), Oral, daily, PRN, 10 capsule(s), Capsule(s), 0, for pain Start Date: 08/24/23 Status: Ordered Eliquis 5 [...] Tablet(s), 0 Start Date: 08/24/23 Status: Ordered magnesium oxide 400 mg oral tablet 400 mg, 1 tablet(s), Oral, daily, 14 tablet(s), Tablet(s), 0 Start Date: 08/08/18 Stop Date: 08/22/18 Status: Ordered Potassium Chloride (Eqv-K-Tab) 20 mEq oral tablet, extended release 20 mEq, 1 tablet(s), Oral, bid with meals, 180 tablet(s), Tablet CR, 0 Start Date: 08/24/23 Status: Ordered PreserVision AREDS 0 Start Date: 06/24/23 Status: Ordered PreserVision AREDS 2 oral capsule bid, 0 Start Date: 03/21/18 Status: Ordered Sotalol HCL AF 80 mg, Oral, bid, 0 Start Date: 09/06/16 Status: Ordered spironolactone 25 mg oral tablet 25 mg, 1 tablet(s), Oral, daily, 30 tablet(s), Tablet(s), 0 Start Date: 12/17/21 Status: Ordered Problem List Condition Confirmation Course Effective Dates Status H ealth Status Informant HCC: Atrial fibrillation I48.91 Confirmed Active Bursitis Confirmed Active Pacemaker Confirmed Active Gall stones Confirmed Active IBS (irritable bowel syndrome) Confirmed Active Pacemaker lead malfunction Confirmed Active Colon, diverticulosis Confirmed Active Dizziness Confirmed Active 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 Confirmed Active R53.83 Fatigue Confirmed Active Injury of plantar plate of right foot Confirmed Active History of Polish measles 1 Confirmed Active Hammertoe Confirmed Active [...] Active 1states she has POHS due to [place] measles when she was 5 affecting her [...] N/A entered on: 08/09/22 Sex Note * Keith Condon MD: VERIFY, PERFORM Event Display: Device Check Documentation Authored Date: [id number] * Felipe [facility] Supervisor Stave Finishing: PERFORM Event Display: ROI_Correspondence Authored Date: [id number] * CPDI, User: PERFORM Event Display: ROI_Correspondence Authored Date: [id number] * Event Display: ROI_Correspondence Authored Date: [id number] Patient Care team information Care Team Personnel Name: Krzysztof Avalos MD Position: Physician - Electrophysiology Member Role: Ultrasound Applications Specialist Address: Address: [address] [place] [address] [address] [place] [address] [place] Name: Vernon Richey MD Position: Physician - Internal Medicine Member Role: Specialist Physician Address: Address: [address] [place] [address] [place] Name: Bianca Aggarwal TAKE UP OPERATOR Position: JESUS FAX ONLY - MD NOT ON STAFF Member Role: Primary Care Physician Address: Address: [address] [place] [address] Name: Roger Scales MD Position: Physician - Cardiology Member Role: Dumping Machine Operator Address: Address: [address] [place] [address] [address] [place] [address]- Name: Esperanza Membreno TAKE UP OPERATOR Position: AMB TAKE UP OPERATOR/PA Member Role: Nurse Practitioner Address: Address: [address] [place] [address] Drive [address] [place] [address] [place] Name: Roger Scales MD Position: Physician - Cardiology Med Service: Grey Percher Focusing Machine Operator Role: Referring Physician Address: Address: [address] [place] [address] [address] [place], [place] [address]- Care Team Related Persons Name: REGINE HASSAN Address: [address] [phone] [facility] Name: SOFIA TESFAYE
--- OUTSIDE RECORDS SUMMARY | 2024-04-04 19:39 | XMS_ITS | Continuity of Care Document ---
Author Organization [facility] Address [address] [place] [id number] Care Team Providers Care Variety Saw Operator Name Role Phone ClaribelBianca nance Alayna Primary Care Physician Encounter [facility] Financial Number [id number] Date(s): 08/02/23 - 08/02/[address] [phone] Discharge Disposition: Home or Self Care Attending Physician: Roger Frazier MD Admitting Physician: Roger Frazier MD Referring Physician: Roger Frazier MD Allergies, Adverse Reactions, Alerts Substance Criticality Severity Reaction Reaction Severity Status iodine Active Latex Rash Active Assessment and Plan Future Appointments Appointment Date:08/24/2023 08:00:00 AM Scheduled Provider:Krzysztof Avalos MD Location:[facility] Appointment Type:Lead Revision Appointment Date:12/26/2023 11:30:00 AM Scheduled Provider:Roger Frazier MD Location:[facility] Appointment Type:[facility] EP Established Patient Immunizations Given and Recorded [...] Tablet(s), 5, 5, Route to Pharmacy Electronically, [place] 264955, NCPDP_[id number], 170.2, cm, 08/02/23 11:06:00 CDT, Height, 102, kg, 08/02/23 11:06:00 CDT, Weight Start Date: 08/02/23 Status: Ordered celecoxib 200 mg oral capsule 1 capsule(s), Oral, bid with meals, 180 capsule(s), 0, Route to Pharmacy Electronically, [place] [address]955, NCPDP_[id number], 170.3, cm, 08/09/22 11:04:00 CDT, Height, 103, kg, 08/09/22 11:04:00 CDT, Weight Start Date: 04/06/23 Status: Ordered Eliquis 5 mg oral tablet 5 mg, 1 tablet(s), Oral, bid, 180 tablet(s), Tablet(s), 4, 4, Route to Pharmacy Electronically, [facility], NCPDP_ID-[id number], 170.2, cm, 08/02/23 11:06:00 CDT, Height, 102, [...] Tablet(s), 4, 4, Route to Pharmacy Electronically, [facility], [id number]_[id number], 170.2, cm, 08/02/23 11:06:00 CDT, Height, 102, [...] Active Dizziness Confirmed Active 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 Confirmed Active R53.83 Fatigue Confirmed Active Injury of plantar plate of right foot Confirmed Active History of Vietnamese measles 1 Confirmed Active Hammertoe Confirmed Active [...] Active 1states she has POHS due to turkmen measles when she was 5 affecting her [...] N/A entered on: 08/09/22 Sex Note * Event Display: Authorization to Treat Authored Date: * Event Display: Authorization to Treat Authored Date: * Event Display: ROI_Correspondence Authored Date: [id number] * Event Display: ROI_Correspondence Authored Date: [id number] * Event Display: ROI_Correspondence Authored Date: Heart * Event Display: Echocardiogram Complete Study * Event Display: Echocardiogram Complete Study Authored Date: [id number] Formerly [facility], 1928–1983 CARDIOLOGY SERVICES [address] [place] [address] Transthoracic Echocardiogram Patient Name: KRISTEL HASSAN ANN : 1955 Study Date: 08/02/2023 9:29:46 AM Gender: F Blood Donor Unit Assistant: MALocation: [facility]- Ref.Provider: ROGER FRAZIER Height(Cm): 170 BSA: 2.2 Weight(Kg): 102.1 Heart Rate: 60 BP: 150/80 Quality: Good Order Provider: ROGER FRAZIER PROCEDURES: Echocardiographic Report: Transthoracic echocardiogram with complete 2D, M-Mode, color and Doppler examination. INDICATIONS: Nonrheumatic Aortic Valve Disorder I35.9. Measurements: 2D/M Mode Doppler Measurement Value Normal Range Measurement Value Normal Range LVIDd 2D 4.8 [ 3.9 - 5.7 ] cm LVOT Peak Haris 74.7 [ 80.0 - 150.0 ] cm/s LVIDs 2D 2.9 [ 2.0 - 3.8 ] cm LVOT VTI 21.7 [ 20.0 - 30.0 ] cm IVSd Mid 2D 1.0 [ 0.6 - 1.0 ] cm LVOT Diam 2D 2.0 [ 1.4 - 2.6 ] cm LVPWd 2D 0.9 [ 0.6 - 1.0 ] cm LVOT SVI 32.55 [ 35.00 - 70.00 ] mL/m2 LV Mass 159 g AV Peak Haris 173.4 cm/s LV Mass Index 72 [ 49 - 95 ] g/m2 AV Peak PG 12.0 mmHg RWT 0.38 AV Mean PG 7.2 mmHg EDV 2D 63 [ 60 - 145 ] cm3 AV VTI 47.7 cm LV Diastolic Volume Index 29 [ 29 - 61 ] Aortic Valve Area (VTI) 1.43 cm2 ESV 2D 18 [ 20 - 60 ] cm3 AV DV Index (Velocity) 0.43 [ >= 0.50 ] EF Mod BP 72 [ 50 - 74 ] % AV DVTI Index (VTI) 0.45 [ >= 0.50 ] FS 2D 40 [ 25 - 47 ] % MV E Peak Haris 107.3 [ 70.0 - 120.0 ] cm/s LA Volume Index 2D 24 [ 20 - 34 ] cc/m2 MV A Peak Haris 71.0 cm/s RVDd 2D 3.3 cm MV E/A 1.5 TAPSE 2.1 [ 1.6 - 2.3 ] cm MV Decel Time 242.2 [ 180.0 - 240.0 ] msec RA Area 2D 15 [ 8 - 20 ] cm2 PV Peak Haris 95.2 [ 80.0 - 150.0 ] cm/s LVOT Diam 2D 2.0 [ 1.4 - 2.6 ] cm PV Peak PG 3.6 mmHg Sinus V 2D 3.2 cm Lateral E` 10 cm/s AoR Diam 3.2 [ 2.0 - 3.4 ] cm Medial E` 8 cm/s Asc AoR 2D 3.7 [ 2.0 - 3.4 ] cm Average E` 9.00 cm/s E/E` 11.92 [ <= 14.00 ] Measurement Value Normal Range Measurement Value Normal Range 2D/M Mode Doppler - FINDINGS: Left Ventricle: Normal left ventricular cavity size. Normal left ventricular systolic function. The left ventricular ejection fraction is measured by Cotto's biplane method at 72 %. Normal left ventricular diastolic function for age as measured by tissue Doppler/Mitral Doppler indices. Normal left ventricular mass index. Normal geometry. Right Ventricle: Normal right ventricular size. Normal right ventricular systolic function. Normal regional RV wall motion. Left Atrium: The left atrium is normal in size. Right Atrium: The right atrium is normal in size. Atrial Septum: Normal atrial septum. Mitral Valve: Mild focal calcification of the anterior and posterior mitral valve leaflet(s). Mild mitral annular calcification. Trace to mild mitral regurgitation. Aortic Valve: Trileaflet aortic valve. Aortic cusps appear mildly calcified. No hemodynamically significant aortic stenosis by Doppler. Trace aortic regurgitation. Tricuspid Valve: Normal appearance and function of the tricuspid valve with trace physiologic regurgitation. Normal right ventricular systolic pressure. Pulmonic Valve: Normal pulmonic valve appearance and function with trace (physiologic) regurgitation. Pericardium: Normal pericardium with no significant pericardial effusion. Aorta: Normal ascending aorta size. Normal aortic arch. Normal descending aorta. Aortic root size is normal. There is mild aortic root calcification. IVC: The inferior vena cava is not well visualized. Pulmonary Artery: Normal pulmonary artery size. Pulmonary Veins: Pulmonary veins are normal in appearance and pulse Doppler interrogation shows normal systolic predominant flow. Rhythm: The rhythm during the study was normal sinus rhythm. Prior Comparison: No prior studies for comparison. CONCLUSIONS: 1. Normal left ventricular cavity size. Normal left ventricular systolic function. The left ventricular ejection fraction is measured by Cotto's biplane method at 72 %. Normal left ventricular diastolic function for age as measured by tissue Doppler/Mitral Doppler indices. Normal left ventricular mass index. Normal geometry. 2. Normal right ventricular size. Normal right ventricular systolic function. Normal regional RV wall motion. 3. Mild focal calcification of the anterior and posterior mitral valve leaflet(s). Mild mitral annular calcification. Trace to mild mitral regurgitation. 4. Trileaflet aortic valve. Aortic cusps appear mildly calcified. No hemodynamically significant aortic stenosis by Doppler. Trace aortic regurgitation. 5. No prior studies for comparison. Electronically Signed By: Estiven Adams MD [facility] 2023-08-02 15:43:09 CDT CC: CC: * Event Display: Echocardiogram Report Patient Care team information Care Team Personnel Name: Vernon Richey MD Position: Physician - Internal Medicine Member Role: Specialist Physician Address: Address: [address] [place] [address] Name: Bianca Aggarwal NP Position: [facility] FAX ONLY - MD NOT ON STAFF Member Role: Primary Care Physician Address: Address: [address] [place] [address] Name: Roger Frazier MD Position: Physician - Cardiology Med Service: Elementary Art Teacher Variety Saw Operator Role: Referring Physician Address: Address: [address] [place], [place] [address]- Care Team Related Persons Name: REGINE HASSAN Address: [address] [phone] [facility] Name: SOFIA TESFAYE
--- OUTSIDE RECORDS SUMMARY | 2024-04-04 19:39 | XMS_ITS | Encounter Summary ---
Author Organization [facility] Address [address] [place] [place] [address] Care Team Providers Care Grip Wrapper Name Role Phone Bianca Aggarwal AURE-PUBLISHER ASSISTANT Primary Care Provider [phone] Reason for Visit * Reason Comments Blurred Vision -Pt lost OS lens sebastian k in March and has been wearing older OS lens-Reports comfort and clarity with that lens before losing it -Compliance with lens care-Had a hard time seeing computer screen with GPs Encounter Details Date Type Department Care Team (Late st Contact Info) Description 08/09/2023 1:30 PM CDT Office Visit [facility] - Ophthalmology [address] [place] [phone] Hemalatha Landers, OD [address] [facility] [place] [phone] Contact lens/glasses fitting (Primary Dx) Social History Tobacco Use Types [...] as of this encounter Progress Notes * Hemalatha Landers, OD - 08/09/2023 3:59 PM CDT HPI Chief Complaint Patient presents with ??? Blurred Vision -Pt lost OS lens back in March and has been wearing older OS lens -Reports comfort and clarity with that lens before losing it -Compliance with lens care -Had a hard time seeing computer screen with GPs The following was also reviewed and updated: Current Outpatient Medications Medication Sig Dispense Refill ??? alendronate (FOSAMAX) 35 MG tablet Take 35 mg by mouth every 7 days before meal Take in morningwith full glass of water on empty stomach and remain upright for 30 min ??? ALPRAZolam (XANAX) 0.25 MG tablet Take 0.25 mg by mouth 3 times daily as needed for Anxiety ??? amLODIPine (Norvasc) 10 MG tablet TAKE 1 TABLET BY MOUTH ONCE DAILY STOP TAKING THE 5MG ??? amoxicillin-clavulanate (Augmentin) 875-125 MG tablet ??? apixaban (ELIQUIS) 5 MG tablet Take 5 mg by mouth 2 times daily ??? atorvastatin (LIPITOR) 40 MG tablet Take 80 mg by mouth at bedtime ??? atorvastatin (Lipitor) 80 MG tablet ATORVASTATIN 80MG TABLETS ??? benzonatate (TESSALON) 100 MG capsule Take 1-2 tab PO tid prn. Max 6 tabs per day. 30 capsule 0 ??? celecoxib (CeleBREX) 200 MG capsule 1 capsule(s), Oral, bid with meals, 180 capsule(s), 1, 0, Route to Pharmacy Electronically, [facility], [id number]_ID-[id number], 170.3, cm, 10/27/2020 1101, Height, 97.9, kg, 10/27/2020 1101, Weight ??? celecoxib (CELEBREX) 200 MG capsule Take 200 mg by mouth 2 times daily. ??? cephalexin (Keflex) 500 MG capsule TAKE 1 CAPSULE BY MOUTH 4 TIMES DAILY ??? cetirizine (ZYRTEC) 10 MG tablet Take 1 (one) tablet by mouth once daily 30 tablet 0 ??? clindamycin (Cleocin) 150 MG capsule Take 1 (one) capsule by mouth 3 times daily ??? cyclobenzaprine (Flexeril) 5 MG tablet Take 1 (one) tablet by mouth 3 times daily as needed FORMUSCLE SPASM ??? doxycycline hyclate (Vibramycin) 100 MG capsule TAKE 1 CAPSULE BY MOUTH TWICE DAILY FOR 10 DAYS ??? erythromycin (Romycin) 5 MG/GM ophthalmic ointment APPLY A 1/4 INCH RIBBON UNDER THE LEFT EYE THREE TIMES DAILY FOR 7 DAYS ??? estradiol (Estrace) 0.5 MG tablet Take 1 (one) tablet by mouth once daily ??? estradiol (ESTRACE) 1 MG tablet Take 1 mg by mouth once daily. ??? fludrocortisone (FLORINEF) 0.1 MG tablet Take 0.1 mg by mouth 3 times daily ??? fluticasone propionate (FLONASE) 50 MCG/ACT nasal spray [place] 2 (two) sprays into each nostril once daily 16 g 0 ??? fluticasone propionate (FLONASE) 50 MCG/ACT nasal spray [place] 2 sprays into each nostril once daily 1 bottles 0 ??? furosemide (LASIX) 20 MG tablet Take 20 mg by mouth once daily ??? hyoscyamine sulfate 0.125 MG/ML solution Take by mouth every 4 hours as needed ??? levoFLOXacin (Levaquin) 500 MG tablet Take 1 (one) tablet by mouth once daily ??? lisinopril (Prinivil; Zestril) 40 MG tablet LISINOPRIL 40MG TABLETS ??? lisinopril (PRINIVIL; ZESTRIL) 40 MG tablet Take 40 mg by mouth once daily ??? Magnesium 400 MG Take 400 mg by mouth once daily ??? magnesium lactate 84 MG (7MEQ) tablet Take 1 (one) tablet by mouth once daily ??? magnesium oxide (MAG-OX) 400 MG tablet Take 400 mg by mouth once daily. ??? Magnesium Oxide -Mg Supplement 400 (240 Mg) MG Take 1 (one) tablet by mouth once daily ??? meclizine (ANTIVERT) 25 MG tablet Take 25 mg by mouth 3 times daily as needed. ??? methylPREDNISolone (Medrol Dosepak) 4 MG tablet TAKE BY MOUTH DIRECTED ON INSIDE OF PACKAGE ??? mirabegron ER 24hr (MYRBETRIQ) 50 MG tablet Take 50 mg by mouth once daily ??? Multiple Vitamins-Minerals (PRESERVISION AREDS PO) Take by mouth 2 times daily ??? omeprazole (PriLOSEC) 40 MG capsule Take 1 (one) capsule by mouth every morning ??? omeprazole (PRILOSEC) 40 MG capsule Take 40 mg by mouth daily before breakfast. ??? oxybutynin CR 24hr (DITROPAN-XL) 10 MG tablet Take 10 mg by mouth once daily ??? oxyCODONE-acetaminophen (Percocet) 5-325 MG tablet TAKE 1 TABLET BY MOUTH EVERY 8 HOURS NEEDED FOR PAIN DO NOT DRIVE OR USE ANY MACHINERY FOR 12 HOURS AFTER TAKING THIS MEDICATION ??? PARoxetine (Paxil) 10 MG tablet TAKE 1/2 (ONE-HALF) TABLET BY MOUTH IN THE MORNING ONCE DAILY ??? potassium chloride (KLOR-CON) 20 MEQ packet Take 20 mEq by mouth once daily ??? potassium chloride ER (Klor-Con M) 20 MEQ tablet potassium chloride 20 mEq tablet,ER particles/crystals ??? solifenacin (VESICARE) 10 MG tablet Take 10 mg by mouth once daily ??? sotalol (BETAPACE) 80 MG tablet Take 40 mg by mouth 2 times daily. ??? spironolactone (Aldactone) 25 MG tablet Take 1 (one) tablet by mouth once daily ??? traMADol (Ultram) 50 MG tablet Take 1 (one) tablet by mouth every 6 hours ??? traMADol (ULTRAM) 50 MG tablet Take 50 mg by mouth 2 times daily ??? vibegron (Gemtesa) 75 MG tablet Take 1 (one) tablet by mouth once daily No current facility-administered medications for this visit. Allergies Allergen Reactions ??? Latex Unknown and Itching ??? Oxycodone Other ??? Morphine Nausea and/or Vomiting ??? Flecainide Palpitations and Other Other reaction(s): Runs of non-sustained VT (< 3 seconds) on Holter 2010 ??? Iodine Unknown and Itching Review of Systems Past Medical History: Diagnosis Date ??? Arthritis ??? Atrial fibrillation (HCC) ??? Diverticulitis ??? Edema ??? GERD (gastroesophageal [...] History Tobacco Use ??? Smoking status: Never ??? Smokeless tobacco: Never Vaping Use ??? Vaping Use: Never used Substance Use Topics ??? Alcohol use: No ??? Drug use: No Base Eye Exam Visual Acuity (Snellen - Linear) Right Left Dist cc 20/20 -2 20/200 Pupils Pupils APD Right PERRL None Left PERRL None Visual Brock Left Right Full Full Extraocular Movement Right Left Full Full Neuro/Psych Oriented x3: Yes Mood/Affect: Normal Slit Lamp and Fundus Exam External Exam Right Left External Normal Normal Slit Lamp Exam Right Left Lids/Lashes 2+ Ptosis, Dermatochalasis - upper lid 2+ Ptosis, Dermatochalasis - upper lid Conjunctiva/Sclera White and quiet White and quiet Cornea Clear, reduced TBUT Clear, reduced TBUT Anterior Chamber Deep and quiet Deep and quiet Iris Round and reactive Round and reactive Lens 2+ Nuclear sclerosis, 1+ Cortical cataract, Vacuoles 2+ Nuclear sclerosis, 1+ Cortical cataract, Vacuoles Anterior Vitreous Vitreous strands Vitreous strands Refraction Wearing Rx Sphere Cylinder Friona Add Right -5.75 Sphere +2.50 Left -8.50 -1.25 145 +2.50 Age: old Type: PAL Manifest Refraction Sphere Cylinder Friona Dist VA Add Right -5.75 Sphere 20/20-2 +2.50 Left -8.50 -1.25 145 20/40 +2.50 Final Rx Sphere Cylinder Friona Add Right -5.75 Sphere +2.50 Left -8.50 -1.25 145 +2.50 Type: PAL Contact Lens Exam Current Contact Lens Rx Brand Base Curve Diameter Sphere Lens Addl. Specs Dist VA Centration Movement Right Fluoroperm 60 7.98/42.25 9.5 -4.50 RGP 20/20-2 Lid attachment Adequate Left Fluoroperm 60 7.90/42.75 9.5 -5.50 RGP Older lens 20/200 Lid attachment Adequate Over-Sphere Over-Dist VA Right Allen 20/20-2 Left -2.50 20/70-2 Final Contact Lens Rx Brand Base Curve Diameter Sphere Lens Right Fluoroperm 60 7.98/42.25 9.5 -4.50 RGP Left Fluoroperm 60 7.90/42.75 9.5 -5.50 RGP Expiration Date: 08/08/2024 Study findings: Assessment/Plan New glasses and CL rx available Stable [place] GP, lost OS lens, wearing an older left lens Left eye for near Ok to order duplicate lenses See same day visit for note of ocular health Hemalatha Landers, SALVADOR * Liliana Mazariegos - 08/09/2023 1:35 PM CDT Assessment/Plan Brenna Chattereje is a 68 year old female #Previously diagnosed with POHS OU Previously followed with retina specialist, Dr. Jordan?? Could have POHS but unlike a textbook case Punched out lesions appear more like pavingstone ppa OS>OD, could be from myopia No CNVM Monitor ?? #H/o Turkish Old Fashioned Measles Patient reports sudden vision loss in 1995, had measles as a child. Reports vision loss attributed to measles. ?? #RE - Myopia & Presbyopia Update and dispense spec??rx??for backup glasses.?? Updated contact lens rx, use reading glasses over for computer distance Continue cleaning regimen with Anna.?? MONO OS near ?? #Degenerative Myopia??OD<OS ?? #Anisometropic, refractive amblyopia OS ?? #Age Related Cataract Formation Not visually significant Continue to monitor CE when needed ?? 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 Please see attending note for updates to plan. Liliana Mazariegos Optometry Geothermal Production Manager 08/09/2023 1:35 PM documented in this encounter Plan of Treatment Upcoming Encounters Date Type Department Care Team (Late st Contact Info) Description 08/13/2024 10:00 AM CDT Office Visit [facility] - Ophthalmology [address] [place] [phone] Hemalatha Landers, SALVADOR [address] [place] [address] [phone] documented as of this encounter Visit Diagnoses Diagnosis Contact lens/glasses fitting- Primary Fitting and adjustment of spectacles and contact lenses documented in this encounter Care Teams Grip Wrapper Relationship Specialty Start Date End Date Bianca Aggarwal APRN-PUBLISHER ASSISTANT [address] [place] [id number] PCP - General 09/29/21 documented as of this encounter
--- OUTSIDE RECORDS SUMMARY | 2024-04-04 19:39 | XMS_ITS | Clinical Summary ---
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 This disclosure is being madepursuant to the Care Everywhere program and may not contain all information available regarding this patient. Last updated 18.[facility] Allergies Active Allergy Reactions Criticality Noted Date Comments Flecainide Palpitations,Other High 02/17/2011 Other reaction(s): Runs of non-sustained VT (< 3 seconds) on Holter 2010 Iodine Unknown,Itching High 04/21/2023 Latex Unknown,Itching High 04/21/2023 Morphine Nausea and/or Vomiting Low 05/20/2020 Oxycodone Other 04/28/2009 Medications * Be aware that medications may not be up to date on this document. Alwaysverify current medications with the patient. Medication Sig Dispensed Refills Start Date End Date Status traMADol (ULTRAM) 50 MG tablet Take 50 mg by mouth 2 times daily Active omeprazole (PRILOSEC) 40 MG capsule Take 40 mg by mouth daily before breakfast. Active estradiol (ESTRACE) 1 MG tablet Take 1 mg by mouth once daily. Active meclizine (ANTIVERT) 25 MG tablet Take 25 mg by mouth 3 times daily as needed. Active atorvastatin (LIPITOR) 40 MG tablet Take 80 mg by mouth at bedtime Active magnesium oxide (MAG-OX) 400 MG tablet Take 400 mg by mouth once daily. Active furosemide (LASIX) 20 MG tablet Take 20 mg by mouth once daily Active sotalol (BETAPACE) 80 MG tablet Take 40 mg by mouth 2 times daily. Active celecoxib (CELEBREX) 200 MG capsule Take 200 mg by mouth 2 times daily. Active apixaban (ELIQUIS) 5 MG tablet Take 5 mg by mouth 2 times daily Active solifenacin (VESICARE) 10 MG tablet Take 10 mg by mouth once daily Active Multiple Vitamins-Minerals (PRESERVISION AREDS PO) Take by mouth 2 times daily Active ALPRAZolam (XANAX) 0.25 MG tablet Take 0.25 mg by mouth 3 times daily as needed for Anxiety Active fludrocortisone (FLORINEF) 0.1 MG tablet Take 0.1 mg by mouth 3 times daily Active fluticasone propionate (FLONASE) 50 MCG/ACT nasal sprayIndications:V iral URI with cough [place] 2 sprays into each nostril once daily 1 bottles 03/26/2018 Active oxybutynin CR 24hr (DITROPAN-XL) 10 MG tablet Take 10 mg by mouth once daily Active potassium chloride (KLOR-CON) 20 MEQ packet Take 20 mEq by mouth once daily Active lisinopril (PRINIVIL; ZESTRIL) 40 MG tablet Take 40 mg by mouth once daily Active mirabegron ER 24hr (MYRBETRIQ) 50 MG tablet Take 50 mg by mouth once daily Active alendronate (FOSAMAX) 35 MG tablet Take 35 mg by mouth every 7 days before meal Take in morning with full glass of water on empty stomach and remain upright for 30 min Active benzonatate (TESSALON) 100 MG capsule Take 1-2 tab PO tid prn. Max 6 tabs per day. 30 capsule 08/17/2020 Active fluticasone propionate (FLONASE) 50 MCG/ACT nasal spray [place] 2 (two) sprays into each nostril once daily 16 g 08/17/2020 Active cetirizine (ZYRTEC) 10 MG tablet Take 1 (one) tablet by mouth once daily 30 tablet 08/17/2020 Active amLODIPine (Norvasc) 10 MG tablet TAKE 1 TABLET BY MOUTH ONCE DAILY STOP TAKING THE 5MG 03/31/2023 Active amoxicillin-clavul anate (Augmentin) 875-125 MG tablet 03/16/2022 Active atorvastatin (Lipitor) 80 MG tablet ATORVASTATIN 80MG TABLETS 05/13/2019 Active celecoxib (CeleBREX) 200 MG capsule 1 capsule(s), Oral, bid with meals, 180 capsule(s), 1, 0, Route to Pharmacy Electronically, [id number], 170.3, cm, 10/27/2020 1101, Height, 97.9, kg, 10/27/2020 1101, Weight 04/16/2021 Active cephalexin (Keflex) 500 MG capsule TAKE 1 CAPSULE BY MOUTH 4 TIMES DAILY 04/25/2023 Active clindamycin (Cleocin) 150 MG capsule Take 1 (one) capsule by mouth 3 times daily 12/03/2022 Active cyclobenzaprine (Flexeril) 5 MG tablet Take 1 (one) tablet by mouth 3 times daily as needed FOR MUSCLE SPASM 07/07/2023 Active doxycycline hyclate (Vibramycin) 100 MG capsule TAKE 1 CAPSULE BY MOUTH TWICE DAILY FOR 10 DAYS 08/30/2022 Active erythromycin (Romycin) 5 MG/GM ophthalmic ointment APPLY A 1/4 INCH RIBBON UNDER THE LEFT EYE THREE TIMES DAILY FOR 7 DAYS 04/21/2023 Active estradiol (Estrace) 0.5 MG tablet Take 1 (one) tablet by mouth once daily 07/27/2023 Active hyoscyamine sulfate 0.125 MG/ML solution Take by mouth every 4 hours as needed Active levoFLOXacin (Levaquin) 500 MG tablet Take 1 (one) tablet by mouth once daily 12/03/2022 Active vibegron (Gemtesa) 75 MG tablet Take 1 (one) tablet by mouth once daily 08/03/2021 Active traMADol (Ultram) 50 MG tablet Take 1 (one) tablet by mouth every 6 hours 12/11/2021 Active spironolactone (Aldactone) 25 MG tablet Take 1 (one) tablet by mouth once daily 08/05/2021 Active potassium chloride ER (Klor-Con M) 20 MEQ tablet potassium chloride 20 mEq tablet,ER particles/crystals 05/05/2019 Active PARoxetine (Paxil) 10 MG tablet TAKE 1/2 (ONE-HALF) TABLET BY MOUTH IN THE MORNING ONCE DAILY 02/14/2023 Active oxyCODONE-acetamin ophen (Percocet) 5-325 MG tablet TAKE 1 TABLET BY MOUTH EVERY 8 HOURS NEEDED FOR PAIN DO NOT DRIVE OR USE ANY MACHINERY FOR 12 HOURS AFTER TAKING THIS MEDICATION 03/21/2023 Active omeprazole (PriLOSEC) 40 MG capsule Take 1 (one) capsule by mouth every morning 04/23/2022 Active methylPREDNISolone (Medrol Dosepak) 4 MG tablet TAKE BY MOUTH DIRECTED ON INSIDE OF PACKAGE 04/07/2023 Active Magnesium Oxide -Mg Supplement 400 (240 Mg) MG Take 1 (one) tablet by mouth once daily 04/29/2022 Active magnesium lactate 84 MG (7MEQ) tablet Take 1 (one) tablet by mouth once daily Active Magnesium 400 MG Take 400 mg by mouth once daily 04/29/2022 Active lisinopril (Prinivil; Zestril) 40 MG tablet LISINOPRIL 40MG TABLETS 09/23/2019 Active Active Problems Problem Noted Date Diagnosed Date 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 <30 Neg Hx Thyroid Disease Neg Hx Ulcerative Colitis Neg Hx Relation Name Status Comments Brother Father Mother Social History Tobacco Use Types Packs/Day Years [...] Mass Index 33.36 08/17/2020 11:59 AM CDT Plan of Treatment Upcoming Encounters Date Type Department Care Team (Late st Contact Info) Description 08/13/2024 10:00 AM CDT Office Visit [facility] - Ophthalmology [address] [place] [address], [place] [address] Hemalatha Landers, OD [address] [facility] [place] [address] Health Maintenance Due Date Last Done Comments BONE DENSITY TESTING 1956 COLOGUARD (AGES 45-75) - COL ON CA SCREENING 1956 COLON MONITORING 1956 COLONOSCOPY - COLON CA SCREENING 1956 CT COLONOGRAPHY - COLON CA SCREENING 1956 Colorectal Cancer Screening 1956 FIT - COLON CA SCREENING 1956 FLEX SIG - COLON CA SCREENING 1955 MEDICARE AWV ? 12 MONTHS 1956 HEPATITIS C SCREENING 03/03/1974 DTAP/TDAP/TD VACCINES (1 - Tdap) 1975 ZOSTER VACCINE (1 of 2) 2006 PNEUMOCOCCAL VACCINE 65+ (1 of 1 - PCV) 2021 DEPRESSION SCREENING 04/18/2023 COVID-19 VACCINE (3 - 2023-2 5 season) 2023 07/06/2020, 06/15/2020 INFLUENZA VACCINE (#1) 12/18/2023201 5, 01/17/2014 MAMMOGRAM 02/24/2024 02/23/2022, 02/23/2022 Respiratory Syncytial Virus (RSV) Vaccine Pt: or over 60 yrs (1 - 1-dose 75+ series) 2031 HEPATITIS B VACCINE Aged Out No longe r eligible based on patient's age to complete this topic HIB VACCINE Aged Out No longer eligi ble based on patient's age to complete this topic HPV VACCINE Aged Out No longer eligi ble based on patient's age to complete this topic MENINGOCOCCAL VACCINE Aged Out No ese colby eligible based on patient's age to complete this topic Care Teams Ballaster Relationship Specialty Start Date End Date Bianca Aggarwal APRN-IGLESIA [address] [place] [id number] PCP - General 09/29/21
--- OUTSIDE RECORDS SUMMARY | 2024-04-04 19:39 | XMS_ITS | Continuity of Care Document ---
Author Organization [facility] Address [address] [place] [id number] Care Team Providers Care Microbiology Lab Assistant Name Role Phone Bianca Aggarwal Primary Care Physician [phone] Encounter [facility] Financial Number [id number] Date(s): 10/25/23 - 10/25/23 [facility] [address] [phone] Encounter Diagnosis Dizziness(Discharge Diagnosis) - 10/25/23 History of syncope(Discharge Diagnosis) - 10/25/23 Paroxysmal atrial fibrillation(Discharge Diagnosis) - 10/25/23 Mild aortic stenosis(Discharge Diagnosis) - 10/25/23 Chronic anticoagulation(Discharge Diagnosis) - 10/25/23 Pacemaker(Discharge Diagnosis) - 10/25/23 E78.5 Hyperlipidemia(Discharge Diagnosis) - 10/25/23 HTN (hypertension)(Discharge Diagnosis) - 10/25/23 Orthostasis(Discharge Diagnosis) - 10/25/23 Discharge Disposition: Home or Self Care Attending Physician: Roger Scales MD Allergies, Adverse Reactions, Alerts Substance Criticality Severity Reaction Reaction Severity Status iodine Active Latex Rash Active Assessment and Plan Future Appointments Appointment Date:12/02/2023 11:30:00 AM Scheduled Provider:Keith Condon MD Location:[facility] Appointment Type:SLES EP Established Patient Appointment Date:12/26/2023 11:30:00 AM Scheduled Provider:Roger Scales MD Location[facility] Appointment Type:[facility] EP Established Patient Appointment Date:03/14/2024 10:00:00 AM Scheduled Provider:Vernon Richey MD Location:[facility] Appointment Type:CIMR EP Established Patient Immunizations [...] Date: 08/08/18 Stop Date: 08/22/18 Status: Ordered Metoprolol Succinate ER 25 mg oral tablet, extended release 25 mg, 1 tablet(s), Oral, bid, 180 tablet(s), Tablet CR, 4, 4, Take an extra 25 mg q 4 hours PRN atrial fibrillation., Route to Pharmacy Electronically, [facility], [id number]_[id number], 170.2, cm, 10/25/23 16:08:00 CDT, Height, 102, [...] bid, 0 Start Date: 03/21/18 Status: Ordered spironolactone 25 mg oral tablet 25 mg, 1 tablet(s), Oral, daily, 90 tablet(s), Tablet(s), 3, 3, Route to Pharmacy Electronically, [facility], [id number]_[id number], 170.2, cm, 08/24/23 7:14:00 CDT, Height, 104.7, kg, 08/24/23 7:14:00 CDT, Weight Start Date: 09/23/23 Stop Date: 09/17/24 Status: Ordered Problem List Condition Confirmation Course Effective Dates Status H ealt Status Informant HCC: Atrial fibrillation I48.91 Confirmed Active Bursitis Confirmed Active Pacemaker Confirmed Active Gall stones Confirmed Active IBS (irritable bowel syndrome) Confirmed Active Pacemaker lead malfunction Confirmed Active Colon, diverticulosis Confirmed Active Dizziness Confirmed Active 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 on cephalometric analyst Confirmed Active R53.83 Fatigue Confirmed Active Injury [...] Range]: 1 Peripheral Pulse Rate [60-100 bpm] 69 bp m (10/25/23 4:08 PM) Blood Pressure [89-139/60-90 mm Hg] 134/ 85mm Hg (10/25/23 4:08 PM) Height 170.2 cm (10/25/23 4:08 PM) Weight 102 kg (10/25/23 4:08 PM) Social History Social History Type Response Alcohol Never alcohol user Substance Abuse Never drug user Smoking Status Never smoker;Never; Tobacco Cessation Counseling Requested N/A entered on: 08/09/22 Sex Note * Bibi Irwin 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: PERFORM Event Display: Patient Documentation AMB Authored Date: [id number] * Felipe [facility] Superintendent: PERFORM Event Display: ROI_Correspondence Authored Date: [id number] * CPDI, User: PERFORM Event Display: ROI_Correspondence Authored Date: [id number] * Event Display: ROI_Correspondence Authored Date: [id number] Cardiology Outpatient Note * Roger Scales MD: PERFORM Event Display: Cardiology Office/Clinic Note Authored Date: [id number] Patient Information Name:KRISTEL CHATTERJEE EVELYN Address: [address] [place] [address] [place], [place] [id number] Sex:Female Date of :1955 Emergency Contact:SOFIA TESFAYE Location:[facility] Registration Date and Time:10/25/2023 15:34 CDT Primary Care Physician: Bianca Aggarwal PUBLIC RECORDS RESEARCHER, Attending Physician: Roger Scales MD, Chief Complaint Dizziness, fatigue History of Present Illness Ms. Chatterjee is a 68-year-old??female??with the following medical problems. ?? Past medical history: Ablation of atrial fibrillation in December of 2010 and in??February of 2011 PAF starting in approximately 2009 HTN HLD IBS Vertigo Diverticulitis Pacemaker ?? Allergies: Latex Iodine ?? Habits: None. ?? Social history:?? Marital status:?? with 2 kids.? Occupation: Disabled.?? 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 ?? Exercise: None. ?? 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 04/20/2023: K 3.9, AST 66, ALT 47, creatinine 0.61, hgb 13.6 06/06/2023: EKG: normal sinus rhythm. 08/02/2023: EKG: normal sinus rhythm. 08/02/2023: Echocardiogram:??normal LV function with mild , peak aortic valve gradient of??14 with KIMBERLEY??of 1.4. 08/18/2023: hgb 13.7, K 4.6, creatinine 0.98. 10/25/2023: EKG: normal sinus rhythm. ?? History on 06/06/2023: In October of 2022 she woke up in atrial fibrillation.?? She rode in a car on the way home from vacation in [place], [place], then she was sitting at a [...] 20 mg daily to 10 mg daily. ?? Labs on 08/18/2023: hgb 13.7, K 4.6, creatinine 0.98. ?? She had??her pacemaker replaced at [facility] on 08/24/2023. ? Office visit on??10/25/2023: She came to see me today due to continued dizziness, fatigue, heat sensitivity, and feeling pale and clammy. She gets very fatigued, dizzy, and flushed upon minimal exertion. On 10/22/2023 she was at a neighbor's house??and made a plate of food when she began to feel sick with clamminess, dizziness, and vomiting which continued throughout the day. She denies any bleeding. ?? Her EKG on 10/25/2023??showed normal??sinus rhythm. ?? Treatment plan on 10/25/2023: She continues to have significant??dizziness, fatigue,??and clamminess.?? Her orthostatic vitals revealed a supine BP of??120/80 and a standing BP of??105/75; she is orthostatic.?If she continues to feel nauseated and dizzy??after one week of stopping sotalol, then I will stop??her spironolactone. She remains in sinus rhythm.?? I suspect her??symptoms could be due to sotalol which she has??been taking for??many??years.?On 10/25/2023??I stopped her sotalol and started on metoprolol XL??25 mgBID.?? If her heart begins to race, she should take an extra 25 mg??of metoprolol q 4 hours until normal. ?? Her fell in 2017 and hit his head; he now has problems with his memory, tremors, and neuropathy. She is going on vacation to [place], [place] in October 2024. ?? Review of Systems General Weight Change >10lbs: No Fever: No Fatigue: Yes Difficulty Sleeping: Yes Blood Transfusion: No ?? Psych/Social Feeling blue/discouraged: No High anxiety/stress: No Loss of friends: No Feeling life has no purpose: No Feeling others are talking about you: No Feeling fear: No Hearing voices: No Marital or relationship problems: No youth care professional awakenings: No ?? Head & Neck ROS Visual Changes (Not Glasses): No Dizziness: No Double vision: No Sinus problems: No Frequent persistent nosebleeds: No Ear pain: No Trouble hearing: No Ringing in Ears: No Hoarseness: No Persistent sore throat: No Mouth sores: No Swollen glands (Frequent): No ?? Kidney/Bladder UTI: No Urinary Incontinence: No Urinary Hesitancy: No Frequent Urination: No Frequent urination at night: No Difficulty urinating: No Urinary Urgency: Yes Urinary Retention: No Blood in urine: No ?? Respiratory/Lungs Stop breathing during sleep: No Shortness of Breath: No Coughing up blood: No Wheezing: No Cough.: No Sore Throat: No Snoring: No Daytime sleepiness: No ?? Skeletal Gout: No Back Pain (Major): Yes Neck Pain (Major): Yes Weakness of arm or leg: No Joints Swelling/Stiffness: Yes Deformities of Back/Extremities: No Leg swelling: No Edema: No ?? Heart/Vascular Chest discomfort/tightness: No Irregular rapid heart beat: Yes Smothering feeling at night: No Ankle swelling: Yes Light headed: Yes Fainting episodes: No Varicose Veins: No Leg Pain with Walking: No Color/Temperature Changes of Extremities: No Leg Swelling ROS: No ?? Neuro Numbness or tingling: No Severe frequent headaches: No Abnormal coordination: No Trouble with speech: No Forgetfulness/confusion: No ?? Stomach/Bowel Black/Bloody stools: No Nausea/Vomiting (Frequent): Yes Frequent heart burn/acid (GERD): No Abdominal pain.: No Diarrhea (Frequent): No Constipation.: No Difficulty swallowing: No Vomiting blood: No ?? Skin & Hair Changes in hair/hair loss: No Major skin problems: No Wounds that will not heal: No Persistent rash: No Changes in moles: No ? Vitals and Measurements Vital Signs Height: 170.2 cm Height Inches Conversion: 67 Weight: 102 kg Weight in Pounds (kg conversion): 224.4 Body Surface Area: 2.196 m2 Body Mass Index: 35.21 kg/m2 Systolic Blood Pressure: 134 mm Hg Diastolic Blood Pressure: 85 mm Hg Peripheral Pulse Rate: 69 bpm Oxygen Saturation: 100 % Systolic Blood Pressure Supine: 120 mm Hg Diastolic Blood Pressure Supine: 80 mm Hg Systolic Blood Pressure Standin mm Hg Diastolic Blood Pressure [place] mm Hg Physical Exam General Appearance: alert and oriented?? Eyes: normal Ears: normal Nose: normal Neck: no jugular venous distention Chest: normal shape Heart: normal rate, regular rhythm, 2/6 ejection systolic murmur Lungs: respiratory rate is normal, breath sounds are clear bilaterally.?? Extremities: no edema ? Assessment/Plan 1.??Dizziness She had??her pacemaker replaced at [facility] on 08/24/2023 which did not relieve her dizziness.?Her EKG on 10/25/2023??showed normal??sinus rhythm.?? On 10/25/2023 her orthostatic vitalsrevealed a supine BP of??120/80 and a standing BP of??105/75; she is orthostatic.?? I suspect??her s ymptoms??could be related to??sotalol which she has taken for many years.?? On 10/25/2023??I stopped her sotalol and started on metoprolol XL??25 mg BID.?If her heart begins to race, she should take an extra 25 mg??of metoprolol q 4 hours until normal.?If she continues to feel nauseated and dizzy??after one week of stopping sotalol, then I will stop??her spironolactone. ?? 2.??Orthostasis Her orthostatic vitals revealed a supine BP of??120/80 and a standing BP of??105/75; she is orthostatic.?If she continues to feel nauseated and dizzy??after one week of stopping sotalol, then I will stop??her spironolactone. ?? 3.??Paroxysmal atrial fibrillation She was diagnosed with atrial fibrillation in approximately 2009.?? She had two ablations in 2010.?? She had a pacemaker placed in approximately February of 2023.?In February 2023 she had a near syncopal episode and her ILR showed a pause of greater than three seconds and multiple episodes of atrial fibrillation.?? 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 Her EKG on10/25/2023??showed normal??sinus rhythm.?She is currently in sinus rhythm and is on Eliquis for anticoagulation.?On 10/25/2023??I stopped her sotalol and started on metoprolol XL??25 mg BID.?If her heart begins to race, she should take an extra 25 mg??of metoprolol q 4hours until normal. ?? 4.??Mild aortic stenosis She has a 2/6 ejection systolic murmur on exam.?Her echocardiogram on 08/02/2023 showed??normal LV function with mild , peak aortic valve gradient of??14 with KIMBERLEY??of 1.4.?? Her is mild. ? 5.??Chronic anticoagulation She takes Eliquis 5 mg BID. ? 6.??Pacemaker She had a pacemaker placed in approximately February of 2023.?? She has had many issues with her pacemaker, including: infection of her incision, being inappropriately??shocked by her pacemaker, and a misplaced ventricular lead.?? I referred her to Dr. Condon to??manage her pacemaker.?? When I sawher on 08/02/2023 she reported her bottom pacemaker leads are not functioning.?? She had??her pacemaker replaced at [facility] on 08/24/2023. ?? 7.??E78.5 Hyperlipidemia Her AST on 04/20/2023 was 66.?? On 06/06/2023??I reduced her??atorvastatin from 80 mg daily to 40 mg daily. ?? 8.??HTN (hypertension) On 06/06/2023 her BP was 175/90 supine and 150/95 standing.?? At that time,??I recommended she??minimize taking Celebrex as it can cause fluid retention and HTN.?? Fludrocortisone can cause edema andelevated BP.?? I weaned and discontinued her fludrocortisone; I reduced it to 0.1 mg daily for one week, then 0.1 mg every other??day for one week, then stop fludrocortisone.?I reduced her Lisinopril from 40 mg??to 20 mg daily.?? I am hoping that by stopping her Florinef I can reduce some of herBP medications and help her edema.?On 08/02/2023 her blood pressure was normal; it was 120/70 both supine and standing.?She denied recurrent syncope, but she continued to feel dizzy.?On 08/02/2023??I reduced her lisinopril from 20 mg daily to 10 mg daily.? Her orthostatic vitals revealed a supine BP of??120/80 and a standing BP of??105/75; she is orthostatic.?? If she continues to feel nauseated and dizzy??after one week of stopping sotalol, then I will stop??her spironolactone. ?? 9.??History of syncope She has had multiple syncopal episodes.?? In February 2023 she had a near syncopal episode and her ILR showed a pause of greater than three seconds and multiple episodes of atrial fibrillation.?? Shecontinued to have syncopal episodes while sitting down, and she had a pacemaker placed.?? She continues to have dizzy spells.?? Her BP was 175/90 supine and 150/90 standing.?? On 06/06/2023??I recommended she??minimize taking Celebrex as it can cause fluid retention and HTN.?? Fludrocortisone can cause edema and elevated BP.?? On 06/06/2023 I weaned and discontinued her fludrocortisone; I reducedit to 0.1 mg daily for one week, then 0.1 mg every other??day for one week, then stop fludrocortisone.?I also??reduced her Lisinopril from 40 mg??to 20 mg daily.?? When I saw her??on??08/02/2023 she denied??recurrent syncope, but she continued to feel dizzy.?? On 08/02/2023??I reduced her lisinopril from 20 mg daily to 10 mg daily.?? She denies recurrent syncope. ?? Edema:? Her edema is improved.? Problem List/Past Medical History Ongoing Arthralgia Bursitis Cardiac murmur Chronic anticoagulation Colon, diverticulosis Dizziness E55.9 Vitamin D deficiency E78.5 Hyperlipidemia E87.6 Hypokalemia Gall stones Hammertoe HCC: Atrial fibrillation I48.91 History of Malay measles History of syncope HTN (hypertension) IBS (irritable bowel syndrome) Injury of plantar plate of right foot Kidney stones Light headedness M19.90 Arthritis M77.9 Tendonitis M79.1 Myalgia Mild aortic stenosis Myositis Orthostasis 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 on cephalometric analyst Pacemaker Pacemaker lead malfunction Paroxysmal atrial fibrillation [...] oral tablet, 40 mg= 1 tablet(s), Oral, daily celecoxib 200 mg oral capsule, 200 mg= 1 capsule(s), Oral, daily, PRN celecoxib 200 mg oral capsule, 200 mg= 1 capsule(s), Oral, daily, PRN Eliquis 5 mg oral tablet, 5 mg= 1 tablet(s), Oral, bid estradiol 1.5 mg oral tablet, 1 tablet, Oral, daily Gemtesa 75 mg oral tablet, 75 mg= 1 tablet(s), Oral, daily Lasix 20 mg oral tablet, 20 mg= 1 tablet(s), Oral, daily lisinopril 10 mg oral tablet, 10 mg= 1 tablet(s), Oral, daily magnesium oxide 400 mg oral tablet, 400 mg= 1 tablet(s), Oral, daily Metoprolol Succinate ER 25 mg oral tablet, extended release, 25 mg= 1 tablet(s), Oral, bid, 4 refills Potassium Chloride (Eqv-K-Tab) 20 mEq oral tablet, extended release, 20 mEq= 1 tablet(s), Oral, bidwith meals PreserVision AREDS PreserVision AREDS 2 oral capsule, bid spironolactone 25 mg oral tablet, 25 mg= 1 tablet(s), Oral, daily, 3 refills Allergies Latex??(Rash) iodine Social History Alcohol Never [...] other voice to text assistive technology and manager financial planning, variances may occur. Patient Care team information Care Team Personnel Name: Krzysztof Avalos MD Position: Physician - Electrophysiology Member Role: Clothes Marker Address: Address: [address] [place] [address] [address] [place] [address] [place] Name: Vernon Richey MD Position: Physician - Internal Medicine Member Role: Specialist Physician Address: Address: [address] [place] [address] [address] [place] [address] [place] Name: Bianca Aggarwal PUBLIC RECORDS RESEARCHER Position: JESUS ROJAS ONLY - MD NOT ON STAFF Member Role: Primary Care Physician Address: Address: [facility] [place] [address] [place] Name: Roger Scales MD Position: Physician - Cardiology Member Role: Tailing Machine Operator Address: Address: [address] [place] [address] [address] [place] [address]- Name: Esperanza Membreno PUBLIC RECORDS RESEARCHER Position: AMB PUBLIC RECORDS RESEARCHER/PA Member Role: Nurse Practitioner Address: Address: [address] [place] [address] [address] [place] [address] [place] Name: Roger Scales MD Position: Physician - Cardiology Med Service: Otologist Microbiology Lab Assistant Role: Attending Physician Address: Address: [address] [place] [address] [address] [place], [place] [address]- Care Team Related Persons Name: REGINE CHATTERJEE Address: [address] [place], [place] [id number] [facility] Name: SOFIA TESFAYE
--- OUTSIDE RECORDS SUMMARY | 2024-04-04 19:39 | XMS_ITS | Encounter Summary ---
Author Organization [facility] Health Address [address] [address] Care Team Providers Care Business Control Manager Name Role Phone Bianca Aggarwal AURE-MUCK HAULER Primary Care Provider [phone] Reason for Visit * Reason Comments Follow-up Encounter Details Date Type Department Care Team (Latest Contact Info) Description 08/09/2023 1:00 PM CDT Office Visit [facility] - Ophthalmology [address] [place] [phone] Noe Cavazos MD [address] [place] [address] [place] [phone] 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 Medicine Ophthalmology [address] [place] [phone] Your Visit from 08/09/2023 Follow up Appointment: - It is important that you follow up with us for the health of your eyes - If you have trouble making or getting to your appointment please call our clinic Eye Drop Instructions: Artificial tears can be purchased over the counter. Common brands are Systane and Refresh. Avoid drops that say get the red out or anything similar. The drops that come in bottles have preservatives in them and can be used up to 4 times per day. The drops that come in individual vials are preservative free and can be used up to every hour. (You can use the same vial for one day - the top will pop back on between drops - but after 24 hours it will need to be thrown away.) Activity Instructions: Do not rub your eyes Reasons to call: - call with any new changes in vision, including if you feel your vision worsens - call if you have new flashes, floaters, or a feeling of a curtain coming down over your vision - call with any questions about your drops or eye medications, or if you have trouble getting thesemedicines Phone Number: Week (8am-5pm): - Call [phone] For Emergencies on Evenings, Weekends, or Holidays: Call [phone] and dial [phone] for the machine operator helper. Ask to speak to the eye doctor dean of instruction. They will connect us. documented in this encounter Progress Notes * Patti Oconnor DO - 08/09/2023 1:00 PM CDT Images from the original note were not included. Ophthalmology Office Note--Retina Clinic Subjective: Chief Complaint Patient presents with ??? Follow-up Brenna Chatterjee is a 68 year old female here for retina follow up. First visit with Dr. Cavazos. SawDr. Landers today for updated MRx. Wears RGPs. Past History: Past Medical History: Diagnosis Date ??? Arthritis [...] Alcohol use: No ??? Drug use: No Review of Systems: Constitutional: Negative for chills, fever and weight loss. HENT: Negative for ear discharge, hearing loss and tinnitus. Respiratory: Negative for cough, hemoptysis and wheezing. Cardiovascular: Negative for chest pain and palpitations. Gastrointestinal: Negative for abdominal pain, nausea and vomiting. Genitourinary: Negative for dysuria, frequency and urgency. Musculoskeletal: Negative for back pain, falls and myalgias. Skin: Negative for itching and rash. Neurological: Negative for sensory change, speech change and focal weakness. Psychiatric/Behavioral: Negative for hallucinations, substance abuse and suicidal ideas. Current Outpatient Medications Medication Sig Dispense Refill [...] capsule(s), 1, 0, Route to Pharmacy [facility]ically, [id number], 170.3, cm, 10/27/2020 1101, Height, 97.9, kg, [...] fluticasone propionate (FLONASE) 50 MCG/ACT nasal spray [place] 2 (two) sprays into each nostril once daily 16 g 0 ??? fluticasone propionate (FLONASE) 50 MCG/ACT nasal spray [place] 2 sprays into each nostril once daily [...] Holter 2010 ??? Iodine Unknown and Itching Objective: Base Eye Exam Visual Acuity (Snellen - Linear) Right Left Dist cc 20/20 -2 20/40 Correction: Contacts per MRx with Dr. Landers 08/09/23 Tonometry (Applanation, 1:55 PM) Right Left Pressure 18 18 Pupils Pupils Dark Light Shape React APD Right PERRL 4 3 Round 2 None Left PERRL 4 3 Round 2 None Neuro/Psych Oriented x3: Yes Mood/Affect: Normal Dilation Both eyes: 1.0% Mydriacyl, 2.5% Fer Synephrine @ 1:55 PM Slit Lamp and Fundus Exam External Exam Right Left External Normal Normal Slit Lamp Exam Right Left Lids/Lashes Dermatochalasis Dermatochalasis Conjunctiva/Sclera White and quiet White and quiet Cornea Clear, reduced TBUT Clear, reduced TBUT Anterior Chamber Deep and quiet Deep and quiet Iris Round and pharm dilated Round and pharm dilated Lens 2+ NSC 2+ NSC Vitreous Vitreous strands Vitreous strands Fundus Exam Right Left Disc Tilted, PPA, small Tilted, PPA temporally, small C/D Ratio 0.5 0.4 Macula Normal Focal areas of chorioretinal atrophy Vessels AV ratio 2/3 Normal Periphery Few atrophic chorioretinal scars temporally and nasally, cobblestone degeneration Few atrophic chorioretinal scars inferiorly and temporally, cobblestone degeneration Study Findings 08/09/2023: RETINAL ANALYSIS OCT OCT: OD: normal retina cross section with preservation of fovea, clivus, and cellular lamina OS: staphylomatous appearing, nasal ERM, preserved foveal contour - stable OD (top 04/25/19, bottom 08/09/2023) OS (top 04/25/19, bottom 08/09/2023) Extended Ophthalmoscopy: OD: Optic tilted with PPA, macula normal, vessels wnl, few atrophic chorioretinal scars temporally & nasally, peripheral cobblestone degeneration OS: Optic nerve tilted with PPA, macula with focal areas of chorioretinal atrophy, vessels wnl, fewatrophic chorioretinal scars inferiorly and temporally, cobblestone degeneration peripherally Assessment/Plan: Brenna Chatterjee is a 68 year old female High myopia OS > OD Myopic degeneration OS - Last Rx with Dr. Landers 08/09/23 with -5.75D OD, -8.50D OS - Previously followed by Dr. 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 Cavazos 08/09/23, VA stable with updated MRx per Dr. Landers - DFE with scattered few atrophic scars and cobblestone degeneration OU with focal areas of chorioretinal atrophy in the macula OS, no holes or tears - Appearance more consistent with myopic degeneration rather than POHS Cobblestone degeneration OU - Periphery flat and attached 360, no holes or tears Refractive amblyopia OS - BCVA 20/40 per MRx 08/09/[address] Landers Ptosis OS > OD - Previously interested in referral to oculoplastics History of measles in childhood Retina Treatment History [RIGHT eye] ?? Laser Hx: none ?? Injection Hx: none ?? Surgery Hx: none Retina Treatment History [LEFT eye] ?? Laser Hx: none ?? Injection Hx: none ?? Surgery Hx: none Plan: - MRx per Dr. Landers - RT/RD warning signs/symptoms reviewed - Return 1 year for DFE OU, OCT-H OU, sooner if concerns Patti Oconnor DO Ophthalmology Resident 08/09/2023, 2:51 PM Associated attestation - Noe Cavazos MD - 08/09/2023 4:21 PM CDT ..I reviewed and confirmed the techs ROS, past histories, and readings. I have personally seen and examined the patient, and reviewed in detail the findings of the resident/fellow. I have personally performed the extended ophthalmoscopy.The final examination findings, image interpretations, and plan as documented in the record represent my personal judgment and conclusions. with the following additions or corrections: Follow up: 1 year, DFE OU, OCT [place] OU Noe Cavazos MD Attending, Retina and Uveitis Service Date of Service: 08/09/2023 documented in this encounter Plan of Treatment Upcoming Encounters Date Type Department Care Team (Late st Contact Info) Description 08/13/2024 10:00 AM CDT Office Visit [facility] - Ophthalmology [address] [place] [address], [place] [phone] Hemalatha Landers M, OD [address] [place] [address] [place] [phone] Pending Results Name Type Priority Associated Diagnoses Date /Time RETINAL ANALYSIS OCT Ophthalmology Routine Uncomplicated degenerative myopia of left eye 08/09/2023 1:02 PM CDT Scheduled Orders Name Type Priority Associated Diagnoses Orde r Schedule RETINAL ANALYSIS OCT Ophthalmology Routine Uncomplicated degenerative myopia of left eye Expected: 08/09/2023, Expires: 10/08/2024 documented as of this encounter Visit Diagnoses Diagnosis Uncomplicated degenerative myopia of left eye- Primary Both eyes affected by degenerative myopia with other maculopathy documented in this encounter Care Teams Business Control Manager Relationship Specialty Start Date End Date Bianca Aggarwal APRN-MUCK HAULER [address] [place] [id number] PCP - General 09/29/21 documented as of this encounter
--- OUTSIDE RECORDS SUMMARY | 2024-04-04 19:39 | XMS_ITS | Continuity of Care Document ---
Author Organization [facility] Address [address] [place] [id number] Care Team Providers Care Rn Teacher Name Role Phone Bianca Aggarwal Primary Care Physician Encounter [facility] Financial Number [id number] Date(s): 06/06/23 - 06/06/23 [facility] [address] [phone] Encounter Diagnosis Paroxysmal A-fib(Discharge Diagnosis) - 06/06/23 Hyperlipidemia(Discharge Diagnosis) - 06/06/23 Hypertension(Discharge Diagnosis) - 06/06/23 Dizziness(Discharge Diagnosis) - 06/06/23 Pacemaker(Discharge Diagnosis) - 06/06/23 Cardiac murmur(Discharge Diagnosis) - 06/06/23 Syncope(Discharge Diagnosis) - 06/06/23 Discharge Disposition: Home or Self Care Attending Physician: Roger Scales MD Allergies, Adverse Reactions, Alerts Substance Reaction Severity Status iodine Active Latex Rash Active Immunizations Given and Recorded Vaccine Date Status [...] 180 capsule(s), 0, Route to Pharmacy Electronically, [id number], 170.3, cm, 08/09/22 11:04:00 CDT, Height, 103, kg, 08/09/22 11:04:00 CDT, Weight Start Date: 04/06/23 Status: Ordered Eliquis 5 mg oral tablet 5 mg, 1 tablet(s), Oral, bid, 60 tablet(s), Tablet(s), 0 Start Date: 09/06/16 Status: Ordered estradiol 1.5 mg oral tablet 1 tablet, Oral, daily, 0 Start Date: 09/06/16 Status: Ordered furosemide 20 mg, Oral, daily, 0 Start Date: 08/03/21 Status: Ordered Gemtesa 75 mg oral tablet 75 mg, 1 tablet(s), Oral, daily, 0 Start Date: 08/03/21 Status: Ordered lisinopril 20 mg oral tablet [...] Start Date: 06/06/23 Status: Ordered PreserVision AREDS 2 oral capsule [...] NEEDED FOR PAIN, Route to Pharmacy Electronically, [facility], [id number], 170.5, cm, 12/17/2021 1121, Height, 99.7, kg, [...] syndrome) Confirmed Active Colon, diverticulosis Confirmed Active Dizziness Confirmed Active 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 on retail leasing agent Confirmed Active R53.83 Fatigue Confirmed Active Injury of plantar plate of right foot Confirmed Active History of Solomon Islander measles 1 Confirmed Active Hammertoe Confirmed Active Cardiac murmur Confirmed Active High cholesterol Confirmed Active E78.5 Hyperlipidemia Confirmed Active HBP (high blood pressure) Confirmed Active E87.6 Hypokalemia Confirmed Active M19.90 Arthritis Confirmed Active Arthralgia Confirmed Active Kidney stones Confirmed Active M79.1 Myalgia Confirmed Active Myositis Confirmed Active R00.2 Palpitation Confirmed Active Syncope Confirmed Active M77.9 Tendonitis Confirmed Active E55.9 Vitamin D deficiency Confirmed Active 1states she has POHS due to hungarian measles when she was 5 affecting her [...] Range]: 1 Peripheral Pulse Rate [60-100 bpm] 68 bp m (06/06/23 4:09 PM) Blood Pressure [89-139/60-90 mm Hg] 146/ 85mm Hg *H* (06/06/23 4:09 PM) Height 170.2 cm (06/06/23 4:09 PM) Weight 104 kg (06/06/23 4:09 PM) Social History Social History Type Response Alcohol Never alcohol user Substance Abuse Never drug user Smoking Status Never smoker;Never; Tobacco Cessation Counseling Requested N/A entered on: 08/09/22 Sex Cardiology Consult note * Roger Scales MD: PERFORM Event Display: Cardiology Consultation Authored Date: [id number] Patient Information Name:KRISTEL HASSAN Address: [address] [place] [address] [place], [place] [id number] Sex:Female Date of :1955 Emergency Contact:SOFIA TESFAYE Location:[facility] Registration Date and Time:06/06/2023 15:43 ENVIRONMENTAL HEALTH SPECIALIST Primary Care Physician: Bianca Aggarwal NP, Attending Physician: Roger Scales MD, Chief Complaint PAF s/p ablation and pacemaker, syncope, HTN Reason for Consultation Referred by Dr. Cabrera to evaluate PAF, HTN, and hypotension History of Present Illness Minnie is a 68-year-old??female??with the following medical problems. ?? Past medical history: Ablation of atrial fibrillation in December of 2010 and in??February of 2011 PAF starting in approximately 2009 HTN HLD IBS Vertigo Diverticulitis Pacemaker ?? Allergies: Latex Iodine ?? Habits: None. ?? Social history:?? Marital status:?? with 2 kids.? Occupation: Disabled.?? 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 ?? Exercise: None. ?? 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 04/20/2023: K 3.9, AST 66, ALT 47, creatinine 0.61, hgb 13.6 06/06/2023: EKG: normal sinus rhythm. ?? History on 06/06/2023: In October of 2022 she woke up in atrial fibrillation.?? She rode in a car on the way home from vacation in [place], [place], then she was sitting at a [...] of her incision, being shocked by her ICD, and a misplaced ventricular lead. She continues to have dizzy spells. ?? Treatment plan on 06/06/2023: She has had multply syncopal episodes, frequent PAF, and bradycardia s/p pacemaker.?? She is on both blood pressure medications as well as florinef.?? Apparently her pacemaker is also not working [...] referred her to Dr. Condon to??manage her??pacemaker. ? Her fell in 2017 and hit his head; he now has problems with his memory, tremors, and neuropathy. ?? Review of Systems ?? General Weight Change >10lbs: Yes Fever: No Fatigue: No Difficulty Sleeping: No Blood Transfusion: No ?? Psych/Social Feeling blue/discouraged: No High anxiety/stress: No Loss of friends: No Feeling life has no purpose: No Feeling others are talking about you: No Feeling fear: No Hearing voices: No Marital or relationship problems: No hide buffer awakenings: No ?? Head & Neck ROS Visual Changes (Not Glasses): No Dizziness: Yes Double vision: No Sinus problems: No Frequent persistent nosebleeds: No Ear pain: No Trouble hearing: No Ringing in Ears: No Hoarseness: No Persistent sore throat: No Mouth sores: No Swollen glands (Frequent): No ?? Kidney/Bladder UTI: No Urinary Incontinence: No Urinary Hesitancy: No Frequent Urination: No Frequent urination at night: Yes Difficulty urinating: No Urinary Urgency: No Urinary Retention: No Blood in urine: No ?? Respiratory/Lungs Stop breathing during sleep: No Shortness of Breath: No Coughing up blood: No Wheezing: No Cough.: No Sore Throat: No Snoring: No Daytime sleepiness: No ?? Skeletal Gout: No Back Pain (Major): No Neck Pain (Major): No Weakness of arm or leg: No Joints Swelling/Stiffness: No Deformities of Back/Extremities: No Leg swelling: No Edema: No ?? Heart/Vascular Chest discomfort/tightness: No Irregular rapid heart beat: Yes Smothering feeling at night: No Ankle swelling: Yes Light headed: Yes Fainting episodes: Yes Varicose Veins: No Leg Pain with Walking: No Color/Temperature Changes of Extremities: Yes Leg Swelling ROS: Yes ?? Neuro Numbness or tingling: No Severe frequent headaches: No Abnormal coordination: No Trouble with speech: No Forgetfulness/confusion: No ?? Stomach/Bowel Black/Bloody stools: No Nausea/Vomiting (Frequent): No Frequent heart burn/acid (GERD): No Abdominal pain.: No Diarrhea (Frequent): Yes Constipation.: No Difficulty swallowing: No Vomiting blood: No ?? Skin & Hair Changes in hair/hair loss: No Major skin problems: No Wounds that will not heal: No Persistent rash: No Changes in moles: No ?? Vitals and Measurements Vital Signs Height: 170.2 cm Height Inches Conversion: 67 Weight: 104 kg Weight in Pounds (kg conversion): 228.8 Body Surface Area: 2.2174 m2 Body Mass Index: 35.9 kg/m2 Systolic Blood Pressure:??146 mm Hg??High Diastolic Blood Pressure: 85 mm Hg Peripheral Pulse Rate: 68 bpm Oxygen Saturation: 96 % Systolic Blood Pressure Supine:??175 mm Hg??High Diastolic Blood Pressure Supine: 90 mm Hg Systolic Blood Pressure Standing:??150 mm Hg??High Diastolic Blood Pressure Standin mm Hg Physical Exam ?? General Appearance: alert and oriented?? Eyes: normal Ears: normal Nose: normal Neck: no jugular venous distention Chest: normal shape Heart: normal rate, regular rhythm, 2/6 ejection systolic murmur Lungs: respiratory rate is normal, breath sounds are clear bilaterally.?? Extremities: no edema ?? Assessment/Plan 1.??Paroxysmal A-fib 2.??Hyperlipidemia 3.??Hypertension 4.??Dizziness 5.??Pacemaker 6.??Cardiac murmur 7.??Syncope ?? PAF:?? She was diagnosed with atrial fibrillation in approximately 2009.?? She had two ablations [id number].?? She had a pacemaker placed in approximately February of 2023.?In February 2023 she had anear syncopal episode and her ILR showed a pause of greater than three seconds and multiple episodes of atrial fibrillation.?? 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 [...] her Lisinopril from 40 mg??to 20 mg daily.? Cardiac murmur:?? She has a 2/6 ejection systolic murmur on exam.?She appears to have mild . ??I will order an echocardiogram at her next visit to evaluate her cardiac murmur. ? Dizziness:?? She feels dizzy almost every day. ? Edema:?? I am hoping that by stopping her Florinef I can reduce some of her BP medications and help her edema. ? HLD:?? Her AST on 04/20/2023 was 66.?? I reduced her??atorvastatin from 80 mg daily to 40 mg daily. ? HTN:?? Her BP was 175/90 supine and 150/95 standing.?? I recommended she??minimize taking Celebrex as it [...] her BP medications and help her edema. ? Pacemaker:?? She had a pacemaker placed in approximately February of 2023.?? She has had many issues with her pacemaker, including: infection of her incision, being shocked by her ICD, and a misplaced ventricular lead.?? I referred her to Dr. Condon to??manage her pacemaker. ? Medication changes:?? On 06/06/2023 I recommended she??minimize taking Celebrex as it can cause fluid retention and HTN.?? Fludrocortisone can cause edema and elevated BP.?? I weaned and discontinued her fludrocortisone; I reduced it to 0.1 mg daily for one week, then 0.1 mg every other??day forone week, then stop fludrocortisone.? I reduced her Lisinopril from 40 mg??to 20 mg daily.?? HerAST on 04/20/2023 was 66.?? I reduced her??atorvastatin from 80 mg daily to 40 mg daily.?? I am hoping that by stopping her Florinef I can reduce some of her BP medications and help her edema. ?? Problem List/Past Medical History Ongoing Arthralgia Bursitis Cardiac murmur Colon, diverticulosis Dizziness E55.9 Vitamin D deficiency E78.5 Hyperlipidemia E87.6 Hypokalemia Gall stones Hammertoe HBP (high blood pressure) HCC: Atrial fibrillation I48.91 High cholesterol History of Solomon Islander measles IBS (irritable bowel syndrome) Injury of plantar plate of right foot Kidney stones M19.90 Arthritis M77.9 Tendonitis M79.1 Myalgia Myositis 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 on retail leasing agent Pacemaker R00.2 Palpitation R53.83 Fatigue Syncope PatientStated No qualifying data Historical No qualifying data Procedure/Surgical History ???Procedure on lower leg (03/04/2021)???Abdominal hysterectomy???Arthroscopic knee operation???Cholecystectomy???Coronary heart disease monitoring???foot bone spur???Heart rate monitoring???Laparoscopic adjustable gastric banding???Percutaneous extraction of kidney stone with fragmentation procedur e???Radiofrequency ablation of lesion of heart Medications Inpatient No active inpatient medications Home alendronate 35 mg oral tablet, 35 mg= [...] mg oral tablet, 1 tablet, Oral, daily furosemide, 20 mg, Oral, daily Gemtesa 75 mg oral tablet, 75 mg= 1 tablet(s), Oral, daily lisinopril 20 mg oral tablet, 20 mg= 1 tablet(s), Oral, daily, 4 refills magnesium oxide 400 mg oral tablet, 400 mg= 1 tablet(s), Oral, daily potassium chloride 20 mEq oral tablet, extended release, 20 mEq= 1 tablet(s), Oral, daily with breakfast PreserVision AREDS 2 oral capsule, bid Sotalol [...] valve disorder ?Father ?Positive ?Heart disease ? Immunizations Vaccine Date QzbebdOOTE-RnN-4 (COVID-19) ChAdOx1 vaccine 06/18/2020 Recorded SARS-CoV-2 (COVID-19) ChAdOx1 vaccine 05/28/2020 Recorded Medication list reviewed and reconciled with patient Voice to Text Technology Disclaimer This note may contain text inserted via Dragon or other voice to text assistive technology and orthotist prosthetist, variances may occur. Note * Event Display: Consent/Registration Forms Authored Date: * Event Display: Consent/Registration Forms Authored Date: * Event Display: Privacy Practice Authored Date: * Kassy Kim TELEVISION INSTALLER: PERFORM Event Display: Device Check Documentation Authored Date: * Event Display: ROI_Correspondence Authored Date: [id number] * Event Display: ROI_Correspondence Authored Date: [id number] * Event Display: ROI_Correspondence Authored Date: Patient Care team information Care Team Personnel Name: Vernon Richey MD Position: Physician - Internal Medicine Member Role: Specialist Physician Address: Address: [address] [place] [address] [address] [place] [address] [place] Name: Bianca Aggarwal [employer] Position: [facility] ONLY - MD NOT ON STAFF Member Role: Primary Care Physician Address: Address: [address] [place] [id number] Name: Roger Scales MD Position: Physician - Cardiology Med Service: Can Patcher Rn Teacher Role: Attending Physician Address: Address: [address] [place] [address] [address] [place], [place] [address]- Care Team Related Persons Name: REGINE HASSAN Address: home [address] [place] [phone] [facility] Name: SOFIA TESFAYE
--- OUTSIDE RECORDS SUMMARY | 2024-04-04 19:39 | XMS_ITS | Encounter Summary ---
Author Organization [facility] Address [address] [facility] [place] [address] Care Team Providers Care Mixer And Blender Name Role Phone Bianca Aggarwal AURE-OFFICE ENGINEER Primary Care Provider [phone] Reason for Visit * Reason Comments Retina Evaluation Encounter Details Date Type Department Care Team (Latest Contact Info) Description 03/30/2022 1:00 PM IT ACCOUNT MANAGER Office Visit [facility] [address] [place] [address] [phone] Hemalatha Landers, OD [address] [place] [address] [place] [phone] 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 HPI Chief Complaint Patient presents with ??? Retina Evaluation Brenna Chatterjee is a 67 year old female presents for annual eye exam. Has not noticed vision changes. Denies much difficulty seeing in the distance. Wears GP lenses. Cleans with Soldier contact solution. Reports at last appt here she got a new right lens. Does not use reading glasses to read. Contact lenses are comfortable. The following was also reviewed and updated: [...] 80 mg by mouth at bedtime ??? benzonatate (TESSALON) 100 MG capsule Take 1-2 tab PO tid prn. Max 6 tabs per day. 30 capsule 0 ??? celecoxib (CELEBREX) 200 MG capsule Take 200 mg by mouth 2 times daily. ??? cetirizine (ZYRTEC) 10 MG tablet Take 1 (one) tablet by mouth once daily 30 tablet 0 ??? estradiol (ESTRACE) 1 MG tablet Take 1 mg by mouth once daily. ??? fludrocortisone (FLORINEF) 0.1 MG tablet Take 0.1 mg by mouth 3 times daily ??? fluticasone propionate (FLONASE) 50 MCG/ACT nasal spray Iota 2 (two) sprays into each nostril once daily 16 g 0 ??? fluticasone propionate (FLONASE) 50 MCG/ACT nasal spray Iota 2 sprays into each nostril once daily 1 bottles 0 ??? furosemide (LASIX) 20 MG tablet Take 20 mg by mouth once daily ??? lisinopril (PRINIVIL; ZESTRIL) 40 MG tablet Take 40 mg by mouth once daily ??? magnesium oxide (MAG-OX) 400 MG tablet Take 400 mg by mouth once daily. ??? meclizine (ANTIVERT) 25 MG tablet Take 25 mg by mouth 3 times daily as needed. ??? mirabegron ER 24hr (MYRBETRIQ) 50 MG tablet Take 50 mg by mouth once daily ??? Multiple Vitamins-Minerals (PRESERVISION AREDS PO) Take by mouth 2 times daily ??? omeprazole (PRILOSEC) 40 MG capsule Take 40 mg by mouth daily before breakfast. ??? oxybutynin CR 24hr (DITROPAN-XL) 10 MG tablet Take 10 mg by mouth once daily ??? potassium chloride (KLOR-CON) 20 MEQ packet Take 20 mEq by mouth once daily ??? solifenacin (VESICARE) 10 MG tablet Take 10 mg by mouth once daily ??? sotalol (BETAPACE) 80 MG tablet Take 40 mg by mouth 2 times daily. ??? traMADol (ULTRAM) 50 MG tablet Take 50 mg by mouth 2 times daily No current facility-administered medications for this visit. Allergies Allergen Reactions ??? Flecainide Palpitations and Other Review of Systems Past Medical History: Diagnosis [...] (Snellen - Linear) Right Left Dist cc 20/20-2 20/125 Dist ph cc 20/40+2 Near sc 20/20 OU Correction: Contacts Tonometry (Applanation, 1:45 PM) Right Left Pressure 18 18 Pupils Pupils Dark Light Shape React APD Right PERRL 3 2 Round 2 None Left PERRL 3 2 Round 2 None Visual Brock Left Right Full Full Extraocular Movement Right Left Full Full Neuro/Psych Oriented x3: Yes Mood/Affect: Normal Dilation Both eyes: 1.0% Mydriacyl, 2.5% Fer Synephrine @ 1:46 PM Slit Lamp and Fundus Exam External Exam Right Left External Normal Normal Slit Lamp Exam Right Left Lids/Lashes 2+ Ptosis, Dermatochalasis - upper lid 2+ Ptosis, Dermatochalasis - upper lid Conjunctiva/Sclera White and quiet White and quiet Cornea Clear. reduced TBUT Clear. reduced TBUT Anterior Chamber Deep and quiet Deep and quiet Iris Round and reactive Round and reactive Lens Clear Clear Anterior Vitreous Vitreous syneresis Vitreous syneresis Refraction Manifest Refraction Sphere Cylinder [place] Dist VA Add Right -5.75 Sphere 20/20 +2.50 Left -8.50 -1.25 145 20/30-2 +2.50 Final Rx Sphere Cylinder [place] Dist VA Add Right -5.75 Sphere 20/20 +2.50 Left -8.50 -1.25 145 20/30-2 +2.50 Contact Lens Exam Current Contact Lens Rx Brand Base Curve Diameter Sphere Lens Dist VA Near VA Centration Movement Right Fluoroperm 60 7.98/42.25 9.5 -4.50 RGP 20/20 20/20 OU Superior Adequate Left Fluoroperm 60 7.90/42.75 9.5 -5.50 RGP 20/125 Superior Adequate Over-Sphere Over-Cyl Over-Dist VA Right -0.50 Sphere 20/20 Left -2.75 Sphere 20/30-2 Contact History Replacement Frequency: prn Solutions Used: Soldier (2 step) Final Contact Lens Rx Brand Base Curve Diameter Sphere Lens Right Fluoroperm 60 7.98 9.5 -4.50 RGP Left Fluoroperm 60 7.90/43.25 9.5 RGP Additional Notes OS: mild bearing centrally Study findings: OCT Myopic macula OS>OD No CNVM Assessment/Plan I have verified the documentation of the optometry student, including all history, exam, and medical decision-making details. I have personally performed a physical exam and have personally reviewed the data to support my medical decision-making as outlined in the optometry student's note, and I arrive independently at the same conclusion. I have discussed findings and plan with patient. Note written with student. Please see student note for details. #Previously diagnosed with POHS OU Previously followed with retina specialist, Dr. Jordan Could have POHS but unlike a textbook case Punched out lesions appear more like [place] ppa OS>OD, could be from myopia No CNVM Monitor #H/o Trinidadian Old Fashioned Measles Patient reports sudden vision loss in 1995, had measles as a child. Reports vision loss attributed to measles. ?? #RE - Myopia & Presbyopia Update and dispense spec rx for backup glasses. CLs in good shape, recommend replacement of both lenses at next visit. Continue cleaning regimen with Soldier. MONO OS near ?? #Degenerative Myopia OD<OS #Anisometropic, refractive amblyopia OS ?? #Age Related Cataract Formation Not visually significant. Continue to monitor CE when needed ?? 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 RTC [address] Cavazos for retina eval. RTC [address] Landers for comprehensive eye exam Hemalatha Landers, OD ACCOUNT MANAGER * Nura Ayoub - 03/30/2022 12:54 PM CST Nura's A&P #POHS OU Previously followed with Dr. Jordan for retina. PPA, punched out lesions, no history of vitritis OCT taken today. #RE - Myopia & Presbyopia Update and dispense spec rx for backup glasses. CLs in good shape, recommend replacement of both lenses at next visit. Continue cleaning regimen with Soldier. #Degenerative Myopia OD<OS #Anisometropic Amblyopia OS #Age Related Cataract Formation Not visually significant. Continue to monitor. CE when needed. 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 Continue to monitor. #H/o Trinidadian Old Fashioned Measles Patient reports sudden vision loss in 1995, had measles as a child. Reports vision loss attributed to measles. RTC [address] Cavazos for retina eval. RTC [address] Landers for comprehensive eye exam. 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 Results * OCT (03/30/2022 1:50 PM IT ACCOUNT MANAGER) Anatomical Region Laterality Modality Other 03/30/2022 1:50 PM IT ACCOUNT MANAGER Hemaaltha Landers OD OPHTHALMOLOGY SERVIC ES ORDERABLES documented in this encounter Visit Diagnoses Diagnosis 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
--- OUTSIDE RECORDS SUMMARY | 2024-04-04 19:39 | XMS_ITS | Continuity of Care Document ---
Author Organization [facility] Address [address] [place] [id number] Care Team Providers Care Manager Respiratory Care Name Role Phone Bianca Aggarwal Primary Care Physician Vernon Richey [facility] Encounter [facility] Financial Number [id number] Date(s): 12/17/21 - 12/17/[address] [phone] Discharge Disposition: Home or Self Care Attending Physician: Emely Figueroa Referring Physician: Emely Figueroa ANP Allergies, Adverse Reactions, Alerts No Known Allergies Assessment and Plan Future Appointments Appointment Date:08/09/2022 11:00:00 AM Scheduled Provider:Vernon Richey MD Location:[facility] Appointment Type:CIMR EP Established Patient Immunizations [...] capsule(s), 1, 0, Route to Pharmacy Electronically, [facility], [facility]_ID-[id number], 170.3, cm, 10/27/2020 1101, Height, 97.9, kg, [...] oral capsule 25 mg, 1 capsule(s), Oral, [id number], PRN, 30 capsule(s), Capsule(s), 0, 0, pain, [...] NEEDED FOR PAIN, Route to Pharmacy Electronically, [facility], [facility]_ID-[id number], 170.3, cm, 08/03/2021 1056, Height, 99, kg, 08/03/2021 1056,Weight Start Date: 12/11/21 Status: Ordered VESIcare 10 mg oral tablet 10 mg, 1 tablet(s), Oral, daily, 30 tablet(s), Tablet(s), 0 Start Date: 09/06/16 Status: Ordered Xanax 0.25 mg oral tablet 0.25 mg, 1 tablet(s), Oral, daily, PRN, Tablet(s), 0, anxiety Start Date: 03/21/18 Status: Ordered Problem List Condition Confirmation Course Effective Dates Status H ealth Status Informant HCC: Atrial fibrillation I48.91 Confirmed Active Gall stones Confirmed Active IBS (irritable bowel syndrome) Confirmed Active Colon, diverticulosis Confirmed Active 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 on mailing specialist Confirmed Active R53.83 Fatigue Confirmed Active Injury of plantar plate of right foot Confirmed Active History of Albanian measles 1 Confirmed Active Hammertoe Confirmed Active High cholesterol Confirmed Active E78.5 Hyperlipidemia Confirmed Active HBP (high blood pressure) Confirmed Active E87.6 Hypokalemia Confirmed Active M19.90 Arthritis Confirmed Active Arthralgia Confirmed Active Kidney stones Confirmed Active M79.1 Myalgia Confirmed Active Myositis Confirmed Active R00.2 Palpitation Confirmed Active M77.9 Tendonitis Confirmed Active E55.9 Vitamin D deficiency Confirmed Active 1states she has POHS due to cook island[place] measles when she was 5 affecting her vision Diagnosis Diagnosis Type Effective Dates Health Status Clinical Service Informant M19.90 Arthritis 12/17/21 Non-Specified Arthralgia 12/17/21 Non-Specified M79.1 Myalgia 12/17/21 Non-Specified M77.9 Tendonitis 12/17/21 Non-Specified R53.83 Fatigue 12/17/21 Non-Specified HCC: Atrial fibrillation I48.91 12/17/21 Non-Specified Back pain 12/17/21 Non-Specified M19.90 Arthritis 12/17/21 Non-Specified Arthralgia 12/17/21 Non-Specified M79.1 Myalgia 12/17/21 Non-Specified M77.9 Tendonitis 12/17/21 Non-Specified R53.83 Fatigue 12/17/21 Non-Specified HCC: Atrial fibrillation I48.91 12/17/21 Non-Specified Back pain 12/17/21 Non-Specified M19.90 Arthritis 12/17/21 Non-Specified Arthralgia 12/17/21 Non-Specified M79.1 Myalgia 12/17/21 Non-Specified M77.9 Tendonitis 12/17/21 Non-Specified R53.83 Fatigue 12/17/21 Non-Specified HCC: Atrial fibrillation I48.91 12/17/21 Non-Specified Back pain 12/17/21 Non-Specified M19.90 Arthritis 12/17/21 Non-Specified Arthralgia 12/17/21 Non-Specified M79.1 Myalgia 12/17/21 Non-Specified M77.9 Tendonitis 12/17/21 Non-Specified R53.83 Fatigue 12/17/21 Non-Specified HCC: Atrial fibrillation I48.91 12/17/21 Non-Specified Back pain 12/17/21 Non-Specified M19.90 Arthritis 12/17/21 Non-Specified Arthralgia 12/17/21 Non-Specified M79.1 Myalgia 12/17/21 Non-Specified M77.9 Tendonitis 12/17/21 Non-Specified R53.83 Fatigue 12/17/21 Non-Specified HCC: Atrial fibrillation I48.91 12/17/21 Non-Specified Back pain 12/17/21 Non-Specified M19.90 Arthritis 12/17/21 Non-Specified Arthralgia 12/17/21 Non-Specified M79.1 Myalgia 12/17/21 Non-Specified M77.9 Tendonitis 12/17/21 Non-Specified R53.83 Fatigue 12/17/21 Non-Specified HCC: Atrial fibrillation I48.91 12/17/21 Non-Specified Back pain 12/17/21 Non-Specified M19.90 Arthritis 12/17/21 Non-Specified Arthralgia 12/17/21 Non-Specified M79.1 Myalgia 12/17/21 Non-Specified M77.9 Tendonitis 12/17/21 Non-Specified R53.83 Fatigue 12/17/21 Non-Specified HCC: Atrial fibrillation I48.91 12/17/21 Non-Specified Back pain 12/17/21 Non-Specified M19.90 Arthritis 12/17/21 Non-Specified Arthralgia 12/17/21 Non-Specified M79.1 Myalgia 12/17/21 Non-Specified M77.9 Tendonitis 12/17/21 Non-Specified R53.83 Fatigue 12/17/21 Non-Specified HCC: Atrial fibrillation I48.91 12/17/21 Non-Specified Back pain 12/17/21 Non-Specified M19.90 Arthritis 12/17/21 Non-Specified Arthralgia 12/17/21 Non-Specified M79.1 Myalgia 12/17/21 Non-Specified M77.9 Tendonitis 12/17/21 Non-Specified R53.83 Fatigue 12/17/21 Non-Specified HCC: Atrial fibrillation I48.91 12/17/21 Non-Specified Back pain 12/17/21 Non-Specified M19.90 Arthritis 12/17/21 Non-Specified Arthralgia 12/17/21 Non-Specified M79.1 Myalgia 12/17/21 Non-Specified M77.9 Tendonitis 12/17/21 Non-Specified R53.83 Fatigue 12/17/21 Non-Specified HCC: Atrial fibrillation I48.91 12/17/21 Non-Specified Back pain 12/17/21 Non-Specified M19.90 Arthritis 12/17/21 Non-Specified Arthralgia 12/17/21 Non-Specified M79.1 Myalgia 12/17/21 Non-Specified M77.9 Tendonitis 12/17/21 Non-Specified R53.83 Fatigue 12/17/21 Non-Specified HCC: Atrial fibrillation I48.91 12/17/21 Non-Specified Back pain 12/17/21 Non-Specified M19.90 Arthritis 12/17/21 Non-Specified Arthralgia 12/17/21 Non-Specified M79.1 Myalgia 12/17/21 Non-Specified M77.9 Tendonitis 12/17/21 Non-Specified R53.83 Fatigue 12/17/21 Non-Specified HCC: Atrial fibrillation I48.91 12/17/21 Non-Specified Back pain 12/17/21 Non-Specified Procedures Procedure Date Related Diagnosis Body [...] on right Results Laboratory List Name Date Urinalysis w/ Reflex to Microscopic Urine Microscopic 12/17/21 CBC with Differential 12/17/21 Comprehensive Metabolic Profile (CMP) 12/17/21 Creatine Kinase (CPK (CK Total)) 12/17/21 Differential, Automated 12/17/21 Magnesium Level 12/17/21 Sedimentation Rate (Sed Rate) 12/17/21 TSH with Reflex 12/17/21 Most recent to oldest [Reference Range]: 1 Albumin [3.5-5.0 g/dL] 4.0 g/dL (12/17/21 11:31 AM) Alk Phos [38-126 U/L] 152 U/L *H* (12/17/21 11:31 AM) BUN [7-17 mg/dL] 22 mg/dL *H* (12/17/21 11:31 AM) Calcium [8.4-10.2 mg/dL] 9.5 mg/dL (12/17/21 11:31 AM) Chloride [98-107 mmol/L] 102 mmol/L (12/17/21 11:31 AM) CK, Total [30-135 U/L] 44 U/L (12/17/21 11:31 AM) CO2 [22-30 mmol/L] 32 mmol/L *H* (12/17/21 11:31 AM) Glucose [74-106 mg/dL] 94 mg/dL (12/17/21 11:31 AM) Magnesium [1.6-2.6 mg/dL] 2.1 mg/dL (12/17/21 11:31 AM) Potassium [3.5-4.9 mmol/L] 3.8 mmol/L (12/17/21 11:31 AM) Sodium [137-145 mmol/L] 139 mmol/L (12/17/21 11:31 AM) Protein, Total [6.5-8.6 g/dL] 7.3 g/dL (12/17/21 11:31 AM) TSH, Highly Sensitive [0.47-4.68 uIU/mL] 0.62 uIU/mL (12/17/21 11 AM) Baso # [0.0-0.2 K/uL] 0.0 K/uL (12/17/21 11:31 AM) Eos # [0.0-0.7 K/uL] 0.2 K/uL (12/17/21 11:31 AM) Hematocrit [35.5-44.0 %] 40.9 % (12/17/21: AM) Lymph % 24 % (12/17/21: AM) Lymph # [0.7-4.5 K/uL] 1.2 K/uL (12/17/21 11:31 AM) MCHC [31.5-35.5 g/dL] 32.3 g/dL (12/17/21 11:31 AM) MCH [27.2-32.6 pg] 31.1 pg (12/17/21:31 AM) MCV [82.0-99.0 fL] 96.2 fL (12/17/21 11:31 AM) Hardee # [0.1-1.3 K/uL] 0.5 K/uL (12/17/21 11:31 AM) MPV [9.3-12.4 fL] 9.4 fL (12/17/21 11:31 AM) Neutro # [1.9-7.0 K/uL] 3.2 K/uL (12/17/21 11: AM) Platelet [140-350 K/uL] 278 K/uL (12/17/21 11:31 AM) RBC [3.90-4.90 M/uL] 4.25 M/uL (12/17/21 11:31 AM) RDW [11.5-14.5 %] 13.9 % (12/17/21 11:31 AM) Sed Rate [0-30 mm/hr] 28 mm/hr (12/17/21 11:31 AM) WBC [4.3-10.0 K/uL] 5.1 K/uL (12/17/21 11:31 AM) Neutro % 63 % (12/17/21 11:31 AM) Hardee % 10 % (12/17/21 11 AM) Eos % 3 % (12/17/21 11 AM) Baso % 0 % (12/17/21 11: AM) Nucleated RBCs [0-0 %] 0 % (12/17/21 11: AM) UA Blood [Negative] Negative (12/17/21 AM) UA WBC [<3 /hpf] 6-10 /hpf *(A)* (12/17/21 1133 AM) UA RBC [<3 /hpf] 6-10 /hpf *(A)* (12/17/21: AM) AST [14-42 U/L] 33 U/L (12/17/21 11: AM) Bilirubin, Total [0.2-1.3 mg/dL] 0.9 mg/ dL (12/17/21 11: AM) Creatinine [0.5-1.0 mg/dL] 0.8 mg/dL (12/17/21 11: AM) Hemoglobin [11.8-14.8 g/dL] 13.2 g/dL (12/17/21 11: AM) eGFR(4vMDRD) [>=60 mL/min/1.73m2] >60 mL /min/1.73m2 (12/17/21 11:31 AM) eCrCl(C-Gault) 1.0 mL/min/kg (12/17/21 11:31 AM) Immature Gran % [0.0-0.5 %] 0.2 % (12/17/21 11: AM) Squamous Epithelial Cells [None seen /hp f] Occasional /hpf *(A)* (12/17/21 11:33 AM) Hyaline Cast [None seen /lpf] 6-10 /lpf *(A)* (12/17/21 1133 AM) UA Bilirubin [Negative] Negative (12/17/21 11:33 AM) UA Clarity [Clear] Clear (12/17/21 11:33 AM) UA Color [Straw] Colorless *(A)* (12/17/21 11:33 AM) Differential Type Automated (12/17/21 11:31 AM) UA Glucose (Qual) [Negative] Negative (12/17/21 11:33 AM) UA Ketones [Negative] Negative (12/17/21 11:33 AM) UA Leukocyte Esterase [Negative] 3+ *(A)* (12/17/21 11:33 AM) UA Mucus [None seen /lpf] Trace /lpf *(A)* (12/17/21 11:33 AM) UA Nitrite [Negative] Negative (12/17/21 11:33 AM) UA Specific [employer] [place] [1.005-1.030] 1.007 (12/17/21 11:33 AM) UA pH [5.0-8.0] 5.0 (12/17/21 11:33 AM) UA Protein (Qual) [Negative] Negative (12/17/21 11:33 AM) UA Urobilinogen [Negative] Negative (12/17/21 11:33 AM) Anion Gap [7-16 mmol/L] 5 mmol/L *L* (12/17/21 11:31 AM) ALT [<=35 U/L] 16 U/L (12/17/21 11:31 AM) Social History Social History Type Response Alcohol Never alcohol user Substance Abuse Never drug user Smoking Status Never smoker;Never; Tobacco Cessation Counseling Requested N/A entered on: 08/03/21 Sex Patient Care team information Personnel Name: Bianca Aggarwal NP Address: Address: [address] [place] [address] [place] Name: Vernon Richey MD Address: Address: [address] [place] [address] [place]
--- OUTSIDE RECORDS SUMMARY | 2024-04-04 19:39 | XMS_ITS | Encounter Summary ---
Author Organization [facility] Address [address] [place] [address] Care Team Providers Care Flying Ii Instructor Name Role Phone Bianca Aggarwal AURE-DISTRICT OR DISTRICT OFFICE DIRECTOR Primary Care Provider [phone] Reason for Visit * Reason Onset Date Comments Follow-up 08/19/2020 Encounter Details Date Type Department Care Team ([facility] Contact Info) Description 08/19/2020 Telephone [facility] AT [address] [phone] Provider, [facility] Follow-up Social History Tobacco Use Types Packs/Day [...] encounter Miscellaneous Notes * Telephone Encounter - Brooklyn Childers MA - 08/19/2020 9:26 AM CDT Unable to reach pt for follow up. LM to call back if any questions or concerns. documented in this encounter Plan of Treatment Upcoming Encounters Date Type Department Care Team ([facility] Contact Info) Description 08/13/2024 10:00 AM CDT Office Visit [facility] - Ophthalmology [address] [place] [phone] Hemalatha Landers M, OD [address] [facility] [place] [address] documented as of this encounter Visit Diagnoses Not on filedocumented in this encounter Care Teams Flying Ii Instructor Relationship Specialty Start Date End Date Bianca Aggarwal APRN-IGLESIA [address] [place] [phone] PCP - General Nurse Practitioner 08/17/20 08/09/21 documented as of this encounter
--- OUTSIDE RECORDS SUMMARY | 2024-04-04 19:39 | XMS_ITS | Continuity of Care Document ---
Author Organization [facility] Address [address] [place] [phone] Care Team Providers Care Diesel Tractor Operator Name Role Phone Bianca Aggarwal Primary Care Physician [phone] Encounter [facility] Financial Number [id number] Date(s): 12/26/23 - 12/26/23 [facility] [address] [phone] Encounter Diagnosis Dizziness(Discharge Diagnosis) - 12/23/23 Orthostasis(Discharge Diagnosis) - 12/23/23 Paroxysmal atrial fibrillation(Discharge Diagnosis) - 12/23/23 Mild aortic stenosis(Discharge Diagnosis) - 12/23/23 Chronic anticoagulation(Discharge Diagnosis) - 12/23/23 Pacemaker(Discharge Diagnosis) - 12/23/23 E78.5 Hyperlipidemia(Discharge Diagnosis) - 12/23/23 HTN (hypertension)(Discharge Diagnosis) - 12/23/23 History of syncope(Discharge Diagnosis) - 12/23/23 Leg cramps(Discharge Diagnosis) - 12/26/23 Obesity (BMI 30-39.9)(Discharge Diagnosis) - 12/26/23 Discharge Disposition: Home or Self Care Attending Physician: Roger Scales MD Allergies, Adverse Reactions, Alerts Substance Criticality Severity Reaction Reaction Severity Status iodine Active Latex Rash Active Assessment and Plan Future Appointments Appointment Date:03/14/2024 10:00:00 AM Scheduled Provider:Vernon Richey MD Location:[facility] Appointment Type:CIMR EP Established Patient Appointment Date:06/27/2024 10:30:00 AM Scheduled Provider:Roger Scales MD Location[facility] Appointment Type:[facility] EP Established Patient Appointment Date:12/07/2024 11:45:00 AM Scheduled Provider:Keith Condon MD Location:[facility] Appointment Type:SLES EP Established Patient Immunizations Given [...] to Pharmacy Electronically, [facility] 1907, NCPDP_ID-[id number], 170.2, cm, 10/25/23 16:08:00 CDT, Height, 102, [...] Tablet(s), 3, 3, Route to Pharmacy Electronically, [place] [address]405, NCPDP_ID-[id number], 170.2, cm, 08/24/23 7:14:00 CDT, Height, 104.7, kg, 08/24/23 7:14:00 CDT, Weight Start Date: 09/23/23 Stop Date: 09/17/24 Status: Ordered traMADol 50 mg oral tablet 50 mg, 1 tablet(s), Oral, bid, 0 Start Date: 12/26/23 Status: Ordered Wegovy (0.25 mg dose) subcutaneous solution 0.25 mg, SubQ, weekly, 4 each, Solution, 0, 0, Route to Pharmacy Electronically, [place] [address]405, NCPDP_ID-[id number], 170.18, cm, 12/26/23 12:09:00 CDT, Height, 102.7, kg, 12/26/23 12:09:00 CDT, Weight Start Date: 12/26/23 Status: Ordered Problem List Condition Confirmation Course Effective Dates Status H ealth Status Informant HCC: Atrial fibrillation I48.91 Confirmed Active Obesity (BMI 30-39.9) Confirmed Active Bursitis Confirmed Active Pacemaker Confirmed Active Gall stones Confirmed Active IBS (irritable bowel syndrome) Confirmed Active Leg cramps Confirmed Active Pacemaker lead malfunction Confirmed Active Colon, diverticulosis Confirmed Active Dizziness Confirmed Active 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 on supervisor research shop Confirmed Active R53.83 Fatigue Confirmed Active Injury [...] Active 1states she has POHS due to japanese measles when she was 5 affecting her [...] Pulse Rate [60-100 bpm] 69 bp m (12/26/23 12:09 PM) Height 170.18 cm (12/26/23 12:09 PM) Weight 102.7 kg (12/26/23 12:09 PM) Social History Social History Type Response Alcohol Never alcohol user Substance Abuse Never drug user Smoking Status Never smoker;Never; Tobacco Cessation Counseling Requested N/A entered on: 08/09/22 Sex Note * Preston Thomas Racing Secretary And Handicapper: PERFORM Event Display: Patient Documentation AMB Authored Date: * [facility] [employer]ations Representative: PERFORM Event Display: ROI_Correspondence Authored Date: [id number] * CPDI, User: PERFORM Event Display: ROI_Correspondence Authored Date: [id number] * Event Display: ROI_Correspondence Authored Date: [id number] Cardiology Outpatient Note * Roger Scales MD: PERFORM Event Display: Cardiology Office/Clinic Note Authored Date: [id number] Patient Information Name:KRISTLE CHATTERJEE Address: [address] [place] [address] [address] [phone] Sex:Female Date of :1955 Emergency Contact:SOFIA TESFAYE Location:[facility] Registration Date and Time:12/26/2023 11:14 CDT Primary Care Physician: Bianca Aggarwal HOOP CUTTER, Attending Physician: Roger Scales MD, Chief Complaint F/u for PAF & dizziness History of Present Illness Ms. Chatterjee is a 68-year-old??female??with the following medical problems. ?? Past medical history: Ablation of atrial fibrillation in December of 2010 and in??February of 2011 PAF starting in approximately 2009 HTN HLD IBS Vertigo Diverticulitis Pacemaker ?? Allergies: Latex Iodine ?? Habits: None. ?? Social history:?? Marital status:?? with 2 kids.? Occupation: Disabled.?? 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 ?? Exercise: None. ?? Family history: [...] episodes of palpitations and runs of AF;??her??previous statistician theoretical then??increased her sotalol to 80 BID. 04/20/2023: [...] on the way home from vacation in [place], [place], then she was sitting at a [...] 0.98. ?? She had??her pacemaker replaced at [facility] on 08/24/2023. ? Office visit on??10/25/2023: She [...] mg??of metoprolol q 4 hours until normal. ? Follow-up on 12/26/2023: She returns for cardiology follow-up. She denies chest pain, shortness of breath or palpitations. She feels that her dizziness is 50% improved. ?? Treatment plan on 12/26/2023:?? She feels that her dizziness is 50% improved.?? Her orthostatic vitals??today revealed a sitting BPof 125/80 and a standing BP of 115/80??which is reasonable.?? I encouraged her to be sure she is staying well hydrated and to increase her salt intake.? She??is going to be??having a tooth pulled; I told her??to stop??her Eliquis??3??days prior to her dental??work??and restart Eliquis when safe.?? She does not need prophylactic abx. She has??been??having??cramping of her legs, and her PCP recommended she speak to me about stoppingher??atorvastatin.?I stopped her atorvastatin and told her to only take furosemide PRN to help with her leg cramps.?? She will??contact me in one month to??let me know how her leg cramps??are doing. She??inquired about a weight loss drug which??I feel??will help??reduce her cardiovascular??risk; Iprescribed Wegovy and??recommended she??drink high- protein shakes to help with satiety. ? Her fell in 2016 and hit his head; he now has problems with his memory, tremors, and neuropathy. She is going on vacation to [place], [place] in October 2024. Vitals and Measurements Vital Signs Height: 170.18 cm Height Inches Conversion: 67 Weight: 102.7 kg Weight in Pounds (kg conversion): 225.9 Body Surface Area: 2.2034 m2 Body Mass Index: 35.46 kg/m2 Peripheral Pulse Rate: 69 bpm Oxygen Saturation: 99 % Systolic Blood Pressure Sittin mm Hg Diastolic Blood Pressure Sittin mm Hg Systolic Blood Pressure Standin mm [...] Assessment/Plan 1.??Dizziness She had??her pacemaker replaced at [facility] on 08/24/2023 which did not relieve her dizziness.?Her EKG on 10/25/2023??showed normal??sinus rhythm.?? On 10/25/2023 her orthostatic vitalsrevealed a supine BP of??120/80 and a standing BP of??105/75; she is orthostatic.?? I suspected??her symptoms??could be related to??sotalol which she has taken for many years.?? On 10/25/2023??I stopped her sotalol and started on metoprolol XL??25 mg BID.?If her heart begins to race, she should take an extra 25 mg??of metoprolol q 4 hours until normal.?If she continues to feel nauseated anddizzy??after one week of stopping sotalol, then I will stop??her spironolactone.?She feels that her dizziness is 50% improved.?? Her orthostatic vitals??today revealed a sitting BP of 125/80 and astanding BP of 115/80??which is reasonable.?? I encouraged her to be sure she is staying well hydrated and to increase her salt intake. ?? 2.??Orthostasis Her orthostatic vitals on 10/25/2023 revealed a supine BP of??120/80 and a standing BP of??105/75; she is orthostatic.?If she continues to feel nauseated and dizzy??after one week of stopping sotalol, then I will stop??her spironolactone.?She feels that her dizziness is 50% improved.?? Her ort hostatic vitals??today revealed a sitting BP of 125/80 and a standing BP of 115/80??which is reasonable.?? I encouraged her to be sure she is staying well hydrated and to increase her salt intake. ? 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 Her EKG on10/25/2023??showed normal??sinus rhythm.?On 10/25/2023??I stopped her sotalol due to??dizziness??and started on metoprolol XL??25 mg BID.?If her heart begins to race, she should take an extra 25 mg??of metoprolol q 4 hours until normal.?She is currently in sinus rhythm and is on Eliquis for anticoagulation. ?? 4.??Mild aortic stenosis She has a 2/6 ejection systolic murmur on exam.?Her echocardiogram on 08/02/2023 showed??normal LV function with mild , peak aortic valve gradient of??14 with KIMBERLEY??of 1.4.?? Her is mild. ? 5.??Chronic anticoagulation She takes Eliquis 5 mg BID. ?? 6.??Pacemaker She had a pacemaker placed in approximately February of 2023.?? She has had many issues with her pacemaker, including: infection of her incision, being inappropriately??shocked by her pacemaker, and a misplaced ventricular lead.?? I referred her to Dr. Condon to??manage her pacemaker.?? When I sawher on 08/02/2023 she reported her bottom pacemaker leads are not functioning.?? She had??her pacemaker replaced at [facility] on 08/24/2023. ? 7.??E78.5 Hyperlipidemia Her AST on 04/20/2023 was 66.?? On 06/06/2023??I reduced her??atorvastatin from 80 mg daily to 40 mg daily.?? On 12/26/2023 I stopped her atorvastatin due to myalgias.? 8.??HTN (hypertension) On 06/06/2023 her BP was [...] to 10 mg daily.? Her orthostatic vitals on 10/25/2023??revealed a supine BP of??120/80 and a standing BP of??105/75; she is orthostatic.?? If she continues to feel nauseated and dizzy??after one week of stopping sotalol, then I will stop??her spironolactone. ? 9.??History of syncope She has had multiple [...] 10 mg daily.?? She denies recurrent syncope. ? 10.??Leg cramps She has??been??having??cramping of her legs, and her PCP recommended she speak to me about stoppingher??atorvastatin.?On 12/26/2023 I stopped her atorvastatin and told her to only take furosemidePRN to help with her leg cramps. ?? 11.??Obesity (BMI 30-39.9) She??inquired about a weight loss drug which??I feel??will help??reduce her cardiovascular??risk; Iprescribed Wegovy and??recommended she??drink high- protein shakes to help with satiety. ? Edema:? Her edema is improved.? Problem List/Past [...] Obesity (BMI 30-39.9) Orthostasis 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 on supervisor research shop Pacemaker Pacemaker lead malfunction Paroxysmal atrial fibrillation [...] 25 mg= 1 tablet(s), Oral, tid, PRN celecoxib 200 mg oral capsule, 200 mg= 1 capsule(s), Oral, PRN Eliquis 5 mg oral tablet, 5 [...] extended release, 20 mEq= 1 tablet(s), Oral, as needed PreserVision AREDS 2 oral capsule, bid spironolactone 25 mg oral tablet, 25 mg= 1 tablet(s), Oral, daily, 3 refills traMADol 50 mg oral tablet, 50 mg= 1 tablet(s), Oral, bid Wegovy (0.25 mg dose) subcutaneous solution, 0.25 mg, SubQ, weekly Allergies Latex??(Rash) iodine Social History Alcohol Never [...] other voice to text assistive technology and dishroom attendant, variances may occur. Patient Care team information Care Team Personnel Name: Krzysztof Avalos MD Position: Physician - Electrophysiology Member Role: Production Underwriter Address: Address: [address] [place] [address] [address] [place] [address] [place] Name: Vernon Richey MD Position: Physician - Internal Medicine Member Role: Specialist Physician Address: Address: [address] [facility] [address] Name: Bianca Aggarwal HOOP CUTTER Position: JESUS FAX ONLY - MD NOT ON STAFF Member Role: Primary Care Physician Address: Address: [address] [place] [address] Name: Roger Scales MD Position: Physician - Cardiology Member Role: Change Management Coordinator Address: Address: [address] [place] [address] [address] [place] [address]- Name: Esperanza Membreno HOOP CUTTER Position: AMB HOOP CUTTER/PA Member Role: Nurse Practitioner Address: Address: [address] [place] [address] [address] [place] [address] [place] Name: Roger Scales MD Position: Physician - Cardiology Med Service: Pier Worker Diesel Tractor Operator Role: Attending Physician Address: Address: [address] [place] [address] [address] [place], [place] [address]- Care Team Related Persons Name: REGINE CHATTERJEE Address: [address] [phone] [facility] Name: SOFIA TESFAYE
--- OUTSIDE RECORDS SUMMARY | 2024-04-04 19:39 | XMS_ITS | Encounter Summary ---
Author Organization [facility] Address [address] [facility] [place] [address] Care Team Providers Care Byproducts Pump Operator Name Role Phone Bianca Aggarwal APRN-NATURAL RESOURCE ECONOMIST Primary Care Provider [phone] Encounter Details Date Type Department Care Team (Latest Contact Info) Description 08/09/2023 1:05 PM CDT Clinical Support [facility] - Ophthalmology [address] [place] [phone] Noe Cavazos MD [facility] [place] [phone] Uncomplicated degenerative myopia of left eye (Primary Dx); 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 Social History Tobacco Use Types Packs/Day Years [...] Office Visit [facility] [address] [place] [phone] Hemalatha Landers OD [address] [facility] [place] [phone] Pending Results Name Type Priority Associated Diagnoses Date /Time RETINAL ANALYSIS OCT Ophthalmology Routine Uncomplicated degenerative myopia of left eye 08/09/2023 1:02 PM CDT documented as of this encounter Visit Diagnoses Diagnosis Uncomplicated degenerative myopia of left eye- Primary 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
--- OUTSIDE RECORDS SUMMARY | 2024-04-04 19:39 | XMS_ITS | Continuity of Care Document ---
Author Organization [facility] Address [address] [place] [phone] Care Team Providers Care Supervisor Concrete Block Plant Name Role Phone Bianca Aggarwal Primary Care Physician [phone] Vernon Richey [facility] Encounter [facility] Financial Number [id number] Date(s): 08/09/22 - 08/09/[address] [phone] Discharge Disposition: Home or Self Care Attending Physician: Vernon Rcihey MD Referring Physician: Vernon Richey MD Allergies, Adverse Reactions, Alerts No Known Allergies Assessment and Plan Future Appointments Appointment Date:02/07/2023 11:00:00 AM Scheduled Provider:Vernon Richey MD Location:[facility] Appointment Type:CIMR EP Established [...] 180 capsule(s), 1, Route to Pharmacy Electronically, [facility], [facility]_ID-[id number], 170.5, cm, 12/17/2021 1121, Height, 99.7, kg, [...] oral capsule 25 mg, 1 capsule(s), Oral, [id number], PRN, 30 capsule(s), Capsule(s), 0, 0, pain, [...] NEEDED FOR PAIN, Route to Pharmacy Electronically, [facility] 2425, [facility]_ID-[id number], 170.5, cm, 12/17/2021 1121, Height, 99.7, kg, [...] Colon, diverticulosis Confirmed Active 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 on house officer Confirmed Active R53.83 Fatigue Confirmed Active Injury of plantar plate of right foot Confirmed Active History of Maori measles 1 Confirmed Active Hammertoe Confirmed Active High cholesterol Confirmed Active E78.5 Hyperlipidemia Confirmed Active HBP (high blood pressure) Confirmed Active E87.6 Hypokalemia Confirmed Active M19.90 Arthritis Confirmed Active Arthralgia Confirmed Active Kidney stones Confirmed Active M79.1 Myalgia Confirmed Active Myositis Confirmed Active R00.2 Palpitation Confirmed Active M77.9 Tendonitis Confirmed Active E55.9 Vitamin D deficiency Confirmed Active 1states she has POHS due to latvian measles when she was 5 affecting her vision Diagnosis Diagnosis Type Effective Dates Health Status Cl inical Service Informant Arthralgia 08/09/22 Non-Specified M79.1 Myalgia 08/09/22 Non-Specified M77.9 Tendonitis 08/09/22 Non-Specified R53.83 Fatigue 08/09/22 Non-Specified Bursitis 08/09/22 Non-Specified Arthralgia 08/09/22 Non-Specified M79.1 Myalgia 08/09/22 Non-Specified M77.9 Tendonitis 08/09/22 Non-Specified R53.83 Fatigue 08/09/22 Non-Specified Bursitis 08/09/22 Non-Specified Arthralgia 08/09/22 Non-Specified M79.1 Myalgia 08/09/22 Non-Specified M77.9 Tendonitis 08/09/22 Non-Specified R53.83 Fatigue 08/09/22 Non-Specified Bursitis 08/09/22 Non-Specified Arthralgia 08/09/22 Non-Specified M79.1 Myalgia 08/09/22 Non-Specified M77.9 Tendonitis 08/09/22 Non-Specified R53.83 Fatigue 08/09/22 Non-Specified Bursitis 08/09/22 Non-Specified Arthralgia 08/09/22 Non-Specified M79.1 Myalgia 08/09/22 Non-Specified M77.9 Tendonitis 08/09/22 Non-Specified R53.83 Fatigue 08/09/22 Non-Specified Bursitis 08/09/22 Non-Specified Arthralgia 08/09/22 Non-Specified M79.1 Myalgia 08/09/22 Non-Specified M77.9 Tendonitis 08/09/22 Non-Specified R53.83 Fatigue 08/09/22 Non-Specified Bursitis 08/09/22 Non-Specified Arthralgia 08/09/22 Non-Specified M79.1 Myalgia 08/09/22 Non-Specified M77.9 Tendonitis 08/09/22 Non-Specified R53.83 Fatigue 08/09/22 Non-Specified Bursitis 08/09/22 Non-Specified Arthralgia 08/09/22 Non-Specified M79.1 Myalgia 08/09/22 Non-Specified M77.9 Tendonitis 08/09/22 Non-Specified R53.83 Fatigue 08/09/22 Non-Specified Bursitis 08/09/22 Non-Specified Procedures Procedure Date Related Diagnosis Body [...] on right Results Laboratory List Name Date C3 Complement 08/09/22 C4 Complement 08/09/22 CBC with Differential 08/09/22 Comprehensive Metabolic Profile (CMP) Creatine Kinase (CPK (CK Total)) 08/09/22 Differential, Automated 08/09/22 Rheumatoid Factor, Quantitative 08/09/22 Sedimentation Rate (Sed Rate) 08/09/22 Most recent to oldest [Reference Range]: 1 Albumin [3.5-5.0 g/dL] 3.7 g/dL (08/09/22 12:01 PM) Alk Phos [38-126 U/L] 171 U/L *H* (08/09/22 12:01 PM) BUN [7-17 mg/dL] 22 mg/dL *H* (08/09/22 12: PM) Calcium [8.4-10.2 mg/dL] 7.8 mg/dL *L* (08/09/22 12:01 PM) Chloride [98-107 mmol/L] 103 mmol/L (08/09/22 12:01 PM) CK, Total [30-135 U/L] 56 U/L (08/09/22 12:01 PM) CO2 [22-30 mmol/L] 29 mmol/L (08/09/22 12:01 PM) Glucose [74-106 mg/dL] 89 mg/dL (08/09/22 12:01 PM) Potassium [3.5-4.9 mmol/L] 4.0 mmol/L (08/09/22 12:01 PM) Sodium [137-145 mmol/L] 138 mmol/L (08/09/22 12:01 PM) Protein, Total [6.5-8.6 g/dL] 7.0 g/dL (08/09/22 12:01 PM) Baso # [0.0-0.2 K/uL] 0.0 K/uL (08/09/22 12:01 PM) Eos # [0.0-0.7 K/uL] 0.2 K/uL (08/09/22 PM) Hematocrit [35.5-44.0 %] 40.5 % (08/09/22 PM) Lymph % 24 % (08/09/22 PM) Lymph # [0.7-4.5 K/uL] 1.2 K/uL (08/09/22 PM) MCHC [31.5-35.5 g/dL] 32.1 g/dL (08/09/22 PM) MCH [27.2-32.6 pg] 29.8 pg (08/09/22 PM) MCV [82.0-99.0 fL] 92.9 fL (08/09/22 PM) [place] # [0.1-1.3 K/uL] 0.5 K/uL (08/09/22 PM) MPV [9.3-12.4 fL] 9.6 fL (08/09/22 PM) Neutro # [1.9-7.0 K/uL] 3.3 K/uL (08/09/22 PM) Platelet [140-350 K/uL] 276 K/uL (08/09/22 PM) RBC [3.90-4.90 M/uL] 4.36 M/uL (08/09/22 PM) RDW [11.5-14.5 %] 14.8 % *H* (08/09/22 PM) Sed Rate [0-30 mm/hr] 12 mm/hr (08/09/22 PM) WBC [4.3-10.0 K/uL] 5.2 K/uL (08/09/22 PM) C3 [82-167 mg/dL] 131 mg/dL 1 (08/09/22 PM) C4 [12-38 mg/dL] 28 mg/dL 2 (08/09/22 PM) Neutro % 63 % (08/09/22 PM) [place] % 9 % (08/09/22 PM) Eos % 3 % (08/09/22 PM) Baso % 0 % (08/09/22 12: PM) Nucleated RBCs [0-0 %] 0 % (08/09/22 12: PM) AST [14-42 U/L] 49 U/L *H* (08/09/22 12: PM) Bilirubin, Total [0.2-1.3 mg/dL] 0.6 mg/ dL (08/09/22 12: PM) Creatinine [0.50-1.00 mg/dL] 0.65 mg/dL (08/09/22 12: PM) Hemoglobin [11.8-14.8 g/dL] 13.0 g/dL (08/09/22 12: PM) eGFR(CKD-EPI) [>=90 mL/min/1.73m2] 97 mL /min/1.73m2 (08/09/22 12: PM) eCrCl(C-Gault) 1.3 mL/min/kg (08/09/22 12: PM) Immature Gran % [0.0-0.5 %] 0.2 % (08/09/22 12: PM) Differential Type Automated (08/09/22 12: PM) Rheumatoid Factor [<14.0 IU/mL] <10.0 IU /mL 3 (08/09/22 12: PM) Anion Gap [7-16 mmol/L] 6 mmol/L *L* (08/09/22 12:01 PM) ALT [<=35 U/L] 31 U/L (08/09/22 12: PM) 1Result Comment: Performed At: [address] [id number] Virginia Hall PhD Ph:[phone] 2Result Comment: Performed At: [address] [id number] Virginia Hall PhD Ph:[phone] 3Result Comment: Performed At: [address] [id number] Virginia Hall PhD Ph:[phone] Social History Social History Type Response Alcohol Never alcohol user Substance Abuse Never drug user Smoking Status Never smoker;Never; Tobacco Cessation Counseling Requested N/A entered on: 08/09/22 Sex Note * Emely Hernadez Promotional Demonstrator: PERFORM Event Display: Authorization to Treat Authored Date: [id number] * Emely Hernadez Promotional Demonstrator: PERFORM Event Display: Authorization to Treat Authored Date: [id number] * Event Display: ROI_Correspondence Authored Date: [id number] * Event Display: ROI_Correspondence Authored Date: * HPF, Image_Migration: VERIFY, PERFORM Event Display: ROI_Correspondence Authored Date: [id number] Patient Care team information Care Team Personnel Name: Vernon Richey MD Position: Physician - Internal Medicine Member Role: Specialist Physician Address: Address: [address] [place] [address] Name: Bianca Aggarwal BALLET COMPANY ARTISTIC DIRECTOR Position: ZZ FAX ONLY - MD NOT ON STAFF Member Role: Primary Care Physician Address: Address: [address] [place] [address] Name: Vernon Richey MD Position: Physician - Internal Medicine Med Service: Clockmaker Supervisor Concrete Block Plant Role: Referring Physician Address: Address: [address] [place] [address] [place] Care Team Related Persons Name: REGINE HASSAN Address: home [address] [place] [phone] [facility] Name: SOFIA TESFAYE
--- OUTSIDE RECORDS SUMMARY | 2024-04-04 19:39 | XMS_ITS | Continuity of Care Document ---
Author Organization [facility] Address [address] [id number] Care Team Providers Care Panel Beater Name Role Phone Bianca Aggarwal Alayna Primary Care Physician [phone] Encounter [facility] Financial Number [id number] Date(s): 12/02/23 - 12/02/[address] [facility] [address] [phone] Encounter Diagnosis Sick sinus syndrome(Discharge Diagnosis) - 12/02/23 Paroxysmal atrial fibrillation(Discharge Diagnosis) - 12/02/23 Chronic anticoagulation(Discharge Diagnosis) - 12/02/23 Cardiac pacemaker in situ(Discharge Diagnosis) - 12/02/23 Malfunction of electrode lead of cardiac pacemaker(Discharge Diagnosis) - 12/02/23 Discharge Disposition: Home or Self Care Attending Physician: Keith Condon MD Referring Physician: Roger Scales MD Allergies, Adverse Reactions, Alerts Substance Criticality Severity Reaction Reaction Severity Status iodine Active Latex Rash Active Assessment and Plan Future Appointments Appointment Date:12/26/2023 11:30:00 AM Scheduled Provider:Roger Scales MD Location:[facility] Appointment Type:[facility] EP Established Patient Appointment Date:03/14/2024 10:00:00 AM Scheduled Provider:Vernon Richey MD Location:[facility] Appointment Type:[facility] EP Established Patient Appointment Date:12/07/2024 11:45:00 AM Scheduled Provider:Keith Condon MD Location:[facility] Spec Appointment Type:[facility] EP Established Patient Immunizations [...] PRN atrial fibrillation., Route to Pharmacy Electronically, [place] [address], DEPDP_ID-[id number], 170.2, cm, 10/25/23 16:08:00 CDT, Height, 102, [...] Tablet(s), 3, 3, Route to Pharmacy Electronically, [id number], 170.2, cm, 08/24/23 7:14:00 CDT, Height, 104.7, [...] Active Dizziness Confirmed Active 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 on monitoring coordinator Confirmed Active R53.83 Fatigue Confirmed Active Injury of plantar plate of right foot Confirmed Active History of Swiss measles 1 Confirmed Active Hammertoe Confirmed Active [...] Active 1states she has POHS due to [place] measles when she was 5 affecting her [...] Range]: 1 Peripheral Pulse Rate [60-100 bpm] 70 bp m (12/02/23 11:50 AM) Blood Pressure [89-139/60-90 mm Hg] 118/ 68mm Hg (12/02/23 11:50 AM) Height 170.18 cm (12/02/23 11:50 AM) Weight 102.0 kg (12/02/23 11:50 AM) Social History Social History Type Response Alcohol Never alcohol user Substance Abuse Never drug user Smoking Status Never smoker;Never; Tobacco Cessation Counseling Requested N/A entered on: 08/09/22 Sex Note * Oriana Montoya Blind Hooker: PERFORM Event Display: Device Check Documentation Authored Date: [id number] * Event Display: Consent/Registration Forms * Event Display: Consent/Registration Forms * [facility] Contact Representative: PERFORM Event Display: ROI_Correspondence Authored Date: [id number] * CPDI, User: PERFORM Event Display: ROI_Correspondence Authored Date: [id number] * Event Display: ROI_Correspondence Authored Date: [id number] EKG study * Oriana Montoya Blind Hooker: PERFORM Event Display: In Office EKG Authored Date: [id number] Electrophysiology Office/Clinic Note * Keith Condon MD: PERFORM Event Display: Electrophysiology Office/Clinic Note Authored Date: Patient Information Name:KRISTEL HASSAN Address: [address] [place] [phone] Sex:Female Date of :1955 Emergency Contact:SOFIA TESFAYE Location:[facility] Registration Date and Time:12/02/2023 11:30 CDT Primary Care Physician: Bianca Aggarwal MARKING STITCHER, Attending Physician: Keith Condon MD, History of Present Illness ?The patient is a 68-year-old woman,??a??patient of Dr. Scales. ??She underwent pacemaker implantation at another facility. ??She experienced a RV lead dislodgment. ??The lead was repositioned at the outside hospital. ??She experiences intolerable chest wall thumping with ventricular pacing. ??She presented to us for correction of this problem with the ventricular lead. ??We repositioned the current RV lead to a septal location on 08/24/23. She reports no further thumping . Reports that this problem is resolved??but her big problem now is lower extremity claudication.?? She plans to have this further evaluated by Dr. Calderon.?? At the present time she is unable to exercise.?? She is free of palpitations and lightheadedness. ??She is free of??chest discomfort and dyspnea on exertion.?? She notes no abnormal bleeding.??? Review of Systems The pertinent cardiovascular??positives and negatives??are:?? No palpitations, lightheadedness, dizziness or syncope.?? No exertional chest discomfort or dyspnea.?? Additionally:?? No??new??development of headaches, visual changes, weakness??or numbness.?? No abdominal??discomfort,??nausea, vomiting,??diarrhea, constipation.?? No dysuria. ??No lower extremity edema.?? Positive for lower extremitycramping when walking short distances. ??No nosebleeds, bleeding gums, hematuria or blood per rectum.?? Other systems are negative.? Vitals and Measurements Vital Signs Height: 170.18 cm Height Inches Conversion: 67 Weight: 102 kg Weight in Pounds (kg conversion): 224.4 Body Surface Area: 2.1959 m2 Body Mass Index: 35.22 kg/m2 Systolic Blood Pressure: 118 mm Hg Diastolic Blood Pressure: 68 mm Hg Peripheral Pulse Rate: 70 bpm Physical Exam Const:?Pleasant, Appropriate, not confused, not in extremis?? Eyes:?No scleral icterus, gaze appropriate,??not disconjugate ENMT: No thyromegaly, neck circumference??ok, otherwise normocephalic, atraumatic Neck:?No cervical lymphadenopathy or masses.?? No jugular venous distention.?? No carotid bruits. Resp:?Breathing unlabored, speech unlabored, chest clear to auscultation, no cough, no wheeze, no rales CV: ?Regular??rate,??regular??rhythm, normal S1 and S2, no gallop,??soft systolic murmur at thebase?,??no premature beat Chest:?The pacemaker site in the left pectoral region was well-healed without??swelling or drainage. ??The overlying skin??is free of??erythema, induration??and thinning GI: ?Abdomen is??soft, nontender, nonrigid, with normoactive, normal pitch bowel sounds, no organomegaly,??abdominal aorta nonpalpable M-S:?No??kyphosis or scoliosis. ??No??spinal tenderness. Neuro:?? A&O, mood and affect appropriate, no motor deficits noted Skin:?No clubbing, cyanosis.?No??lower extremity edema. ??Skin otherwise warm and dry Pulses:?? 2+ Bilateral??posterior tibialis??pulses Gait:??normal Assessment/Plan 1.??Sick sinus syndrome Underwent implantation of a dual-chamber pacemaker??at another institution; the likely??indication for pacemaker implantation was??sinus node dysfunction in the setting of paroxysmal atrial fibrillation 2.??Malfunction of electrode lead of cardiac pacemaker She received a dual-chamber pacemaker elsewhere.?? The RV lead had??dislodged. ??We repositioned the RV lead, which is now functioning appropriately. 3.??Cardiac pacemaker in situ She has a Biotronik dual-chamber pacemaker system.?? We thoroughly evaluated the device today and it is functioning??very well. ??We will continue to monitor device function remotely.?? I anticipate seeing her back??in the office in 1 year. 4.??Paroxysmal atrial fibrillation She has a small burden of atrial fibrillation.?? The last episode of atrial fibrillation was detected in July; she has been free of atrial fibrillation since.?? She is anticoagulated. ??She is on metoprolol for ventricular rate control.?? She is not currently??on an antiarrhythmic agent.?? She waspreviously on sotalol but this was discontinued due to dizziness . 5.??Chronic anticoagulation She is anticoagulated with Eliquis. ??She reports no abnormal bleeding.?? She has a [id number] score of??3 for age, gender and hypertension.?? She describes claudication;??if she actually has ASPVD??her [id number] score would rise to 4.?? I plan to continue anticoagulation. Follow Up With When Contact Information Keith Condon MD, Cardiology, Internal Medicine In [address] [place], [place] [address]- Additional Instructions: Problem List/Past Medical History Ongoing Arthralgia Bursitis Cardiac murmur Chronic anticoagulation Colon, diverticulosis Dizziness E55.9 Vitamin D deficiency E78.5 Hyperlipidemia E87.6 Hypokalemia Gall stones Hammertoe HCC: Atrial fibrillation I48.91 History of Swiss measles History of syncope HTN (hypertension) IBS (irritable bowel syndrome) Injury of plantar plate of right foot Kidney stones Light headedness M19.90 Arthritis M77.9 Tendonitis M79.1 Myalgia Mild aortic stenosis Myositis Orthostasis 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 on monitoring coordinator Pacemaker Pacemaker lead malfunction Paroxysmal atrial fibrillation [...] 1 tablet(s), Oral, bidwith meals PreserVision AREDS 2 oral capsule, bid spironolactone [...] ?Positive ?Heart disease ? Immunizations Vaccine Date HzylrnVMFO-GaU-2 (COVID-19) ChAdOx1 vaccine 06/18/2020 Recorded SARS-CoV-2 (COVID-19) ChAdOx1 vaccine 05/28/2020 Recorded Voice to Text Technology Disclaimer This note may contain text inserted via Dragon or other voice to text assistive technology and photograph printer, variances may occur. Patient Care team information Care Team Personnel Name: Krzysztof Avalos MD Position: Physician - Electrophysiology Member Role: Director Of Human Resources Address: Address: [address] [place] [address] [address] [place] [address] Name: Vernon Richey MD Position: Physician - Internal Medicine Member Role: Specialist Physician Address: Address: [address] [place] [address] Name: Bianca Aggarwal MARKING STITCHER Position: JESUS ROJAS ONLY - MD NOT ON STAFF Member Role: Primary Care Physician Address: Address: [address] [place] [address] Name: Roger Scales MD Position: Physician - Cardiology Member Role: Tobacco Stripping Machine Operator Address: Address: [address] [place] [address] [address] [place] [address]- Name: Esperanza Membreno MARKING STITCHER Position: AMB MARKING STITCHER/PA Member Role: Nurse Practitioner Address: Address: [address] [place] [address] Drive [address] [place] [address] Name: Roger Scales MD Position: Physician - Cardiology Med Service: Director Regulatory Compliance Panel Beater Role: Referring Physician Address: Address: [address] [place] [address] [address] [place] [address]- Care Team Related Persons Name: REGINE HASSAN Address: home [address] [place] [phone] [facility] Name: SOFIA TESFAYE
--- OUTSIDE RECORDS SUMMARY | 2024-04-04 19:39 | XMS_ITS | Referral Summary ---
Author Organization [facility] Address [address] [place] [address] Care Team Providers Care Medical Fee Clerk Name Role Phone Bianca Aggarwal AURE-CELL ROOM SUPERVISOR Primary Care Provider [phone] Source Comments [facility],non-owned Affiliates and Associated Physician Practices is amultiple site organization consisting of ambulatory clinics and hospital sitesin [place], [place], [place] and [place]. This disclosure is being madepursuant to the Care Everywhere program and may not contain all information available regarding this patient. Last updated 18.[facility] Allergies Active Allergy Reactions Criticality Noted Date [...] MCG/ACT nasal sprayIndications:V iral URI with cough Quin[place] 2 sprays into each nostril once daily [...] fluticasone propionate (FLONASE) 50 MCG/ACT nasal spray [place] 2 (two) sprays into each nostril once [...] capsule(s), 1, 0, Route to Pharm[facility]ically[id number] 170.3, cm, 10/27/2020 1101, Height, 97.9, kg, [...] eyes 04/06/2018 Overview (01/16/2019): IMO UPDT 01/16/2019 Social History Tobacco Use Types Packs/Day Years [...] Visit [facility] - Ophthalmology [address] [place] [phone] Hemalatha Landers, OD [address] [facility] [address] [place] [id number] Care Teams Medical Fee Clerk Relationship Specialty Start Date End Date Bianca Aggarwal APRN-IGLESIA [address] [place] [id number] PCP - General 09/29/21
--- OUTSIDE RECORDS SUMMARY | 2024-04-04 19:39 | XMS_ITS | Encounter Summary ---
Author Organization [facility] Address [address] [place] [address] Care Team Providers Care Property Management Supervisor Name Role Phone Bianca Aggarwal AURE-SUPERVISOR NURSE Primary Care Provider [phone] Reason for Visit * Reason Comments Sore Throat Congestion Ear Pain Encounter Details Date Type Department Care Team ([facility] st Contact Info) Description 08/17/2020 12:00 PM CDT Office Visit [facility] AT [address] [id number] Provider, [facility] Acute URI (Primary Dx) Social History Tobacco Use Types Packs/Day Years Used Date Smoking Tobacco: Never Smokeless Tobacco: Never Alcohol Use Standard Drinks/Week Comments No 0 (1 standard drink = 0.6 oz pur e alcohol) Sex and Gender Information Value Date Recorded Sex Assigned at Not on file Gender Identity Not on file Sexual Orientation Not on file documented as of this encounter Last Filed Vital Signs Vital Sign Reading [...] Mass Index 33.36 08/17/2020 11:59 AM CDT documented in this encounter Patient Instructions * Patient Instructions* Apryl Redmond, WAXING MACHINE OPERATOR-SUPERVISOR NURSE - 08/17/2020 10:58 AM CDT Images from the original note were not included. Patient Education Upper Respiratory Infection SUPERINTENDENT JOB: An upper respiratory infection is also called a cold. Your nose, throat, ears, and sinuses may be affected. You are more likely to get a cold in the winter. Your risk of getting a cold may be increased if you smoke cigarettes or have allergies, such as hay fever. What causes a cold? A cold is caused by a virus. Many viruses can cause a cold, and each is contagious. This means the virus can be easily spread to another person when the sick person coughs or sneezes. The virus can also be spread if you touch an object the virus is on and then touch your eyes, mouth, or nose. Cold symptoms are usually worst for the first 3 to 5 days. You may have any of the following: ?? Runny or stuffy nose ?? Sneezing and coughing ?? Sore throat or hoarseness ?? Red, watery, and sore eyes ?? Fatigue (you feel more tired than usual) ?? Chills and fever ?? Headache, body aches, or sore muscles Call your local emergency number (911 in the ) if: ?? You have chest pain or trouble breathing. Seek care immediately if: ?? You have a fever over 102??F (39??C). Call your doctor if: ?? You have a low fever. ?? Your sore throat gets worse or you see white or yellow spots in your throat. ?? Your symptoms get worse after 3 to 5 days or are not better in 14 days. ?? You have a rash anywhere on your skin. ?? You have large, tender lumps in your neck. ?? You have thick, green, or yellow drainage from your nose. ?? You cough up thick yellow, green, or bloody mucus. ?? You have a bad earache. ?? You have questions or concerns about your condition or care. Treatment: Colds are caused by viruses and do not get better with antibiotics. Most people get better in 7 to 14 days. You may continue to cough for 2 to 3 weeks. The following may help decrease yoursymptoms: ?? Decongestants help reduce nasal congestion and help you breathe more easily. If you take decongestant pills, they may make you feel restless or not able to sleep. Do not use decongestant sprays for more than a few days. ?? Cough suppressants help reduce coughing. Ask your healthcare provider which type of cough medicine is best for you. ?? NSAIDs , such as ibuprofen, help decrease swelling, pain, and fever. NSAIDs can cause stomach bleeding or kidney problems in certain people. If you take blood thinner medicine, always ask your healthcare provider if NSAIDs are safe for you. Always read the medicine label and follow directions. ?? Acetaminophen decreases pain and fever. It is available without a doctor's order. Ask how much to take and how often to take it. Follow directions. Read the labels of all other medicines you are using to see if they also contain acetaminophen, or ask your doctor or pharmacist. Acetaminophen can cause liver damage if not taken correctly. Do not use more than 4 grams (4,000 milligrams) total of acetaminophen in one day. Manage a cold: ?? Rest as much as possible. Slowly start to do more each day. ?? Drink more liquids as directed. Liquids will help thin and loosen mucus so you can cough it up. Liquids will also help prevent dehydration. Liquids that help prevent dehydration include water, fruit juice, and broth. Do not drink liquids that contain caffeine. Caffeine can increase your risk fordehydration. Ask your healthcare provider how much liquid to drink each day. ?? Soothe a sore throat. Gargle with warm salt water. Make salt water by dissolving ?? teaspoon salt in 1 cup warm water. You may also suck on hard candy or throat lozenges. You may use a sore throatspray. ?? Use a humidifier or vaporizer. Use a cool mist humidifier or a vaporizer to increase air moisture in your home. This may make it easier for you to breathe and help decrease your cough. ?? Use saline nasal drops as directed. These help relieve congestion. ?? Apply petroleum-based jelly around the outside of your nostrils. This can decrease irritation from blowing your nose. ?? Do not smoke. Nicotine and other chemicals in cigarettes and cigars can make your symptoms worse. They can also cause infections such as bronchitis or pneumonia. Ask your healthcare provider for information if you currently smoke and need help to quit. E-cigarettes or smokeless tobacco still contain nicotine. Talk to your healthcare provider before you use these products. Prevent a cold: ?? Wash your hands often. Use soap and water every time you wash your hands. Rub your soapy hands together, lacing your fingers. Use the fingers of one hand to scrub under the nails of the other hand. Wash for at least 20 seconds. Rinse with warm, running water for several seconds. Then dry your hands. Use germ- killing gel if soap and water are not available. Do not touch your eyes or mouth without washing your hands first. ?? Cover a sneeze or cough. Use a tissue that covers your mouth and nose. Put the used tissue in the trash right away. Use the bend of your arm if a tissue is not available. Wash your hands well withsoap and water or use a hand paper maker. Do not stand close to anyone who is sneezing or coughing. ?? Try to stay away from others while you are sick. This is especially important during the first 2to 3 days when the virus is more easily spread. Wait until a fever, cough, or other symptoms are gone before you return to work or other regular activities. ?? Do not share items while you are sick. This includes food, drinks, eating utensils, and dishes. Follow up with your doctor as directed: Write down your questions so you remember to ask them during your visits. ?? Copyright [employer] 2020 Information is for End User's use only and may not be sold, redistributed or otherwise used for commercial purposes. All illustrations and images included in CareNotes?? are the copyrighted property of [employer] or [employer] The above information is an educational psychology professor only. It is not intended as medical advice for individual conditions or treatments. Talk to your doctor, nurse or pharmacist before following any medical regimen to see if it is safe and effective for you. documented in this encounter Progress Notes * Apryl Redmond APRN-SUPERVISOR NURSE - 08/17/2020 12:00 PM CDT Subjective: Brenna Chatterjee is a 65 year old female who presents for evaluation: Chief Complaint Patient presents with ??? Sore Throat ??? Congestion ??? Ear Pain Primary Care Physician is Bianca Aggarwal, AURE-SUPERVISOR NURSE. Symptoms include nasal congestion/drainage, post nasal drainage right ear pain, right sided throat pain, cough with occasional sputum production, headache Reports 101 fever last night, none today. Onset of symptoms was 3 days ago, gradually worsening since that time. Denies chills, body aches, cough, SOB, nausea, vomiting or diarrhea. Denies known sick contacts or exposure to COVID-19. Pt is fully vaccinated for covid- 19. 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 She is drinking plenty of fluids. Evaluation to date: none. Treatment to date: Walitin with some relief, Excederin Migraine with some relief Allergies Allergen Reactions ??? Flecainide Palpitations and Other Outpatient Medications Marked as Taking for the 08/17/20 encounter (Office Visit) with Provider, [facility] Medication Sig ??? alendronate (FOSAMAX) 35 MG tablet Take 35 mg by mouth every 7 days before meal Take in morningwith full glass of water on empty stomach and remain upright for 30 min ??? apixaban (ELIQUIS) 5 MG tablet Take 5 mg by mouth 2 times daily ??? atorvastatin (LIPITOR) 40 MG tablet Take 80 mg by mouth at bedtime ??? benzonatate (TESSALON) 100 MG capsule Take 1-2 tab PO tid prn. Max 6 tabs per day. ??? celecoxib (CELEBREX) 200 MG capsule Take 200 mg by mouth 2 times daily. ??? cetirizine (ZYRTEC) 10 MG tablet Take 1 (one) tablet by mouth once daily ??? estradiol (ESTRACE) 1 MG tablet Take 1 mg by mouth once daily. ??? fludrocortisone (FLORINEF) 0.1 MG tablet Take 0.1 mg by mouth 3 times daily ??? fluticasone propionate (FLONASE) 50 MCG/ACT nasal spray Diamondhead 2 (two) sprays into each nostril once daily ??? lisinopril (PRINIVIL; ZESTRIL) 40 [...] 20 mEq by mouth once daily ??? sotalol (BETAPACE) 80 MG tablet Take 40 mg by mouth 2 times daily. ??? traMADol (ULTRAM) 50 MG tablet Take 50 mg by mouth 2 times daily Past Medical History: Diagnosis Date ??? Arthritis ??? Atrial fibrillation ??? Diverticulitis ??? Edema ??? GERD (gastroesophageal reflux disease) ??? Histoplasmosis ??? Hypercholesteremia ??? Hypertension ??? IBS (irritable bowel syndrome) ??? Sleep apnea ??? Stomach ulcer ??? 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 ABLATION FOR ATRIAL FIBRILLATION/FLUTTER 2010 ??? Cholecystectomy ??? FOOT ARTHROTOMY x2 ??? Hysterectomy ??? KNEE ARTHROPLASTY x3 Social History Socioeconomic History ??? Marital status: Spouse name: Not on file ??? Number of children: Not on file ??? Years of education: Not on file ??? Highest education level: Not on file Occupational History ??? Not on file Tobacco Use ??? Smoking status: Never Smoker ??? Smokeless tobacco: Never Used Vaping Use ??? Vaping Use: Never used Substance and Sexual Activity ??? Alcohol use: No ??? Drug use: No ??? Sexual activity: Yes Partners: Male Other Topics Concern ??? Special Diet Not Asked Social History Narrative ??? Not on file Social Determinants of Health Financial Resource Strain: ??? Difficulty of Paying Living Expenses: Food Insecurity: ??? Worried About Running Out of Food in the Last Year: ??? Ran Out of Food in the Last Year: Transportation Needs: ??? Lack of Transportation (Medical): ??? Lack of Transportation (Non-Medical): Physical Activity: ??? Days of Exercise per Week: ??? Minutes of Exercise per Session: Stress: ??? Feeling of Stress : Social Connections: ??? Frequency of Communication with Friends and Family: ??? Frequency of Social Gatherings with Friends and Family: ??? Attends Rastafarian Services: ??? Active Member of Clubs or Organizations: ??? Attends Club or Organization Meetings: ??? Marital Status: Intimate Partner Violence: ??? Fear of Current or Ex-Partner: ??? Emotionally Abused: ??? Physically Abused: ??? Sexually Abused: Medications reviewed. Review of Systems Pertinent items are noted in HPI Constitutional: Positive for fevers (101 last night, none today) Eyes: Negative Ears, nose, mouth, and throat: Positive for sore throat (right sided), right ear pain, nasal congestion/drainage, post nasal drainage Respiratory: Positive for acute cough, occasional sputum production Cardiovascular: Negative Gastrointestinal: Negative Skin: Negative Neurological: Positive for headaches Objective: BP 110/70 (BP SITE: RIGHT ARM, BP POSITION: SITTING, BP CUFF SIZE: 12) Pulse 75 Temp 98.2 ??F (36.8??C) (Oral) Resp 16 Ht 1.702 m (5' 7 ) Wt 96.6 kg (213 lb) SpO2 97% BMI 33.36 kg/m2 Skin: Physical Exam Exam General appearance: alert, cooperative, no distress, oriented to person, place, and time, wellappearing Head: normocephalic, without trauma Eyes: sclera and conjunctiva clear, EOMI and PERRLA, lids normal Ears: canals clear, tympanic membranes with fluid noted behind TMs, no erythema or bulging, hearingintact to voice Nose: nares open; no septal deviation is noted, mucosa erythematous and swollen, no frontal or maxillary tenderness Throat: no mucous membrane abnormalities, lips, mucosa, and tongue normal; teeth and gums normal, mild oropharyngeal erythema, post nasal drainage present, no tonsillar hypertrophy or exudates, uvulamidline Neck: range of motion is intact, no masses, anterior cervical adenopathy Lungs: breath sounds normal and symmetric; no rales or wheezes Heart: regular rhythm, normal S1 and S2, faint systolic murmur noted(pt reports aware of murmur) Neurologic: mental status normal; alert and oriented X 3 Recent Results (from the past 24 hour(s)) STREP A SCREEN - POINT OF CARE (AMB) STL Collection Time: 08/17/20 12:15 PM Result Value Ref Range Strep A Rapid POCT Negative Negative Strep A Internal Control Present Lot # [id number] Expiration Date 04/17/2021 Assessment: . Encounter Diagnoses Name Primary? Acute URI Yes Plan: Discussed dx and tx of URIs Discussed the importance of avoiding unnecessary abx therapy. Suggested symptomatic OTC remedies. Nasal steroids per orders. RTC prn. Discussed and offered covid testing. Pt declines. F/u with PCP if no improvement over next 3-5 days or sooner for any new or worsening symptoms. You have been diagnosed with a viral infection. -Viral infections do not improve with antibiotics. -Viral symptoms can linger from 7-14 days -The color of discharge does not always reflect the need for an antibiotic, even during a viral illness it is normal for drainage to change from yellow to green at times. -Please refer to the CDC Get Smart (cdc.gov/getsmart) campaign for more details. There are many OTC medications and supportive care measures you can try to treat your symptoms until your symptoms resolve. -Tylenol or Ibuprofen for aches, pains. Take per package directions -Antihistamines like Claritin or Benadryl as needed for drainage. Take per package directions -Delsym as needed for coughing. Follow package directions -Frequent cough drops and lozenges -Increase fluids, especially decaffeinated ones -Sleep with head of bed raised to promote drainage -Avoid spreading the virus by remaining at home and away from others until you are fever-free (temperature below 100) for 24 hours. Good handwashing and covering your mouth when coughing are also important. If you are not improving or worsening in the next 5-7 days you must RETURN to the clinic, go to your PCP, or Urgent Care/ER to be SEEN and reevaluated. No further prescriptions or refills will be given by phone without another evaluation. If you develop a high fever 103+, neck stiffness, trouble breathing, chest pain, or other life threatening symptoms GO TO THE ER IMMEDIATELY. Orders Placed This Encounter ??? STREP A SCREEN - POINT OF CARE (AMB) STL Order Specific Question: Release to patient Answer: Immediate ??? benzonatate (TESSALON) 100 MG capsule Sig: Take 1-2 tab PO tid prn. Max 6 tabs per day. Dispense: 30 capsule Refill: 0 ??? fluticasone propionate (FLONASE) 50 MCG/ACT nasal spray Sig: Diamondhead 2 (two) sprays into each nostril once daily Dispense: 16 g Refill: 0 ??? cetirizine (ZYRTEC) 10 MG tablet Sig: Take 1 (one) tablet by mouth once daily Dispense: 30 tablet Refill: 0 Continue to follow up with HENNY Dior as directed. After Visit Summary reviewed with patient. The patient indicates understanding of these issues and agrees with the plan. Patient discharged to Home .HENNY Richards 08/17/2020 12:15 PM documented in this encounter Miscellaneous Notes * Addendum Note - Alanis Troy - 12/26/2020 10:31 AM CDTAddended by: ALANIS TROY on: 12/26/2020 10:31 AM Modules accepted: Level of Service documented in this encounter Plan of Treatment Upcoming Encounters Date Type Department Care Team (Late st Contact Info) Description 08/13/2024 10:00 AM CDT Office Visit [facility] - Ophthalmology [facility] [place] [address] Hemalatha Landers, OD [address] [facility] [place] [phone] documented as of this encounter Procedures Procedure Name Priority Date/Time Associated Diagnosis Comments STREP A SCREEN - POINT OF CARE (AMB) STL Routine 08/17/2020 12:15 PM CDT Acute URI documented in this encounter Results * STREP A SCREEN - POINT OF CARE (AMB) STL (08/17/2020 12:15 PM CDT) Strep A Rapid POCT Negative Negative [facility] Strep A Internal Control Present [facility] Lot # [id number] [facility] Expiration Date 04/17/[address] [facility] Throat ENTIRE THROAT (SURFACE REGION OF NECK) / Unknown 08/17/2020 12:15 PM CDT Apryl Redmond APRN-[facility] - POINT OF CARE ORDERABLES Performing Organization Address City/State/[facility] Co de Phone Number [facility] [address] [phone] documented in this encounter Visit Diagnoses Diagnosis Acute URI- Primary Acute upper respiratory infections of unspecified site documented in this encounter Care Teams Property Management Supervisor Relationship Specialty Start Date End Date Bianca Aggarwal APRN-CNP [address] [place] [phone] PCP - General Nurse Practitioner 08/17/20 08/09/21 documented as of this encounter
--- OUTSIDE RECORDS SUMMARY | 2024-04-04 19:39 | XMS_ITS | Continuity of Care Document ---
Author Organization [facility] Address [address] [place] [id number] Care Team Providers Care Cook House Laborer Name Role Phone Bianca Aggarwal Primary Care Physician Encounter [facility] Financial Number [id number] Date(s): 08/24/23 - 08/25/[address] [id number] Discharge Disposition: Home with Physician Follow-up Attending Physician: Keith Condon MD Admitting Physician: Keith Condon MD Referring Physician: Roger Scales MD Allergies, Adverse Reactions, Alerts Substance Criticality Severity Reaction Reaction Severity Status iodine Active Latex Rash Active Assessment and Plan Future Appointments Appointment Date:09/09/2023 11:00:00 AM Scheduled Provider: Location:[facility] Appointment Type:[facility] Established Patient Appointment Date:12/26/2023 11:30:00 AM Scheduled Provider:Roger Scales MD Location:[facility] Appointment Type:[facility] Established Patient Functional Status 08/25/23 Activity Assistance Independent 08/24/23 Living Situation Home independently Immunizations Given and Recorded Vaccine Date Status [...] daily, 0 Start Date: 08/03/21 Status: Ordered Keflex 500 mg oral capsule 500 mg, 1 capsule(s), Oral, qid, 5 day(s), 20 capsule(s), Capsule(s), 0, 0, 08/29/23 2:52:00 PM CDT,Route to Pharmacy Electronically, [place] [id number], NCPDP_[id number], 170.2, cm, 08/24/23 7:14:00 CDT, Height, 104.7, kg, 08/24/23 7:14:00 CDT, Weight Start Date: 08/24/23 Stop Date: 08/29/23 Status: Ordered Lasix 20 mg oral tablet 20 mg, 1 tablet(s), Oral, daily, 0 Start Date: 06/24/23 Status: Ordered lisinopril 10 mg oral tablet 10 mg, 1 tablet(s), Oral, daily, 100 tablet(s), Tablet(s), 0 Start Date: 08/24/23 Status: Ordered magnesium oxide 400 mg oral tablet 400 mg, 1 tablet(s), Oral, daily, 14 tablet(s), Tablet(s), 0 Start Date: 08/08/18 Stop Date: 5/7/19 Status: Ordered Potassium Chloride (Eqv-K-Tab) 20 mEq [...] Tablet(s), 0 Start Date: 12/17/21 Status: Ordered Tylenol 650 mg = 2 tablet(s), Tablet(s), Oral, [id number], PRN, pain, mild, 08/24/23 11:15:00 AM CDT Notes: Do Not exceed 3 GM Acetaminophen in 24 hours.ALWAYS Communicate Potential Side Effects:Nausea, vomiting, constipation Start Date: 08/24/23 Stop Date: 09/23/23 Status: Ordered Ultram 50 mg = 1 tablet(s), Tablet(s), Oral, [id number], PRN, pain, moderate, 08/24/23 11:15:00 AM CDT Notes: ALWAYS Communicate Potential Side Effects:Nausea, vomiting, constipation, drowsiness, itching, feeling of warmth, redness of the face, neck, arms, and upper chest Start Date: 08/24/23 Stop Date: 09/23/23 Status: Ordered Mental Status 08/25/23 Orientation_ND Oriented x4 08/25/23 Hearing Impairment None Vision Impairment Bilateral 08/24/23 Orientation Oriented x 4 Problem List Condition Confirmation Course Effective Dates Status H ealth Status Informant HCC: Atrial fibrillation I48.91 Confirmed Active Bursitis Confirmed Active Pacemaker Confirmed Active Gall stones Confirmed Active IBS (irritable bowel syndrome) Confirmed Active Pacemaker lead malfunction Confirmed Active Colon, diverticulosis Confirmed Active Dizziness Confirmed Active 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 on library monitor Confirmed Active R53.83 Fatigue Confirmed Active Injury of plantar plate of right foot Confirmed Active History of Jordanian measles 1 Confirmed Active Hammertoe Confirmed Active [...] Active 1states she has POHS due to samoan measles when she was 5 affecting her [...] on left and 1 on right Results Radiology Reports * Exam Date Time Procedure Performing Provider Status 08/25/23 8:23 AM CHEST 2 VIEWS Frandy Dale [employer] Attendant; Auth (Verified) Notes: (CHEST 2 VIEWS) Reason For Exam: rule out pneumothorax / eval - new leads CHEST 2 VIEWS CHEST 2 VIEWS COMPARISON: 08/24/2023. HISTORY: rule out pneumothorax / eval - new leads FINDINGS: Cardiac implantable electronic device. Heart size unchanged. There is no consolidating infiltrate, effusion or pneumothorax. Mild atelectasis left lower lobe. There is densities projecting along the upper abdomen. IMPRESSION: Mild atelectasis left lower lobe. RR Dictating Physician: Go Kuhn M.D. Releasing Physician: Go Kuhn M.D. Signature Electronically Authorized Authorized Date/Time: 25-AUG-2023 08:31 am * Exam Date Time Procedure Performing Provider Status 08/24/23 11:31 AM CHEST SINGLE VIEW Cole Liu [employer] Attendant; Auth (Verified) Notes: (CHEST SINGLE VIEW) Reason For Exam: Pneumothorax S/P Pacemaker Replacement CHEST SINGLE VIEW SINGLE VIEW CHEST RADIOGRAPH. HISTORY: Post cardiac pacemaker placement. COMPARISON: Chest radiographs of 06/24/2023. FINDINGS: Borderline cardiac enlargement and mild aortic tortuosity. Left subclavian transvenous pacer leads are noted, tips in the expected location of the right atrium and ventricle. There is no hilar or pulmonary vascular abnormality. No confluent infiltrate, pneumothorax or pleural effusion is identified. IMPRESSION: 1. Dual-chamber cardiac pacer leads. 2. No acute pulmonary abnormality. . Dictating Physician: Saqib Turcios M.D. Releasing Physician: Saqib Turcios M.D. Signature Electronically Authorized Authorized Date/Time: 24-AUG-2023 12:00 pm Vital Signs Most recent to oldest [Reference Range]: 1 2 3 Temperature Temporal Artery [35.8-38 DegC] 36.1 DegC (08/25/23 8:00 AM) 36.6 DegC (08/25/23 3:09 AM) 36.7 DegC (08/24/23 8:21 PM) Peripheral Pulse Rate [60-100 bpm] 60 bpm (08/25/23 8:00 AM) 72 bpm (08/24/23 3:00 PM) 71 bpm (08/24/23 12:20 PM) Respiratory Rate [14-22 br/min] 18 br/min (08/25/23 8:00 AM) 18 br/min (08/25/23 3:09 AM) 16 br/min (08/24/23 8:21 PM) Blood Pressure [89-139/60-90 mm Hg] 103/51mm Hg (08/25/23 8:00 AM) 111/63mm Hg (08/25/23 3:09 AM) 111/54mm Hg (08/24/23 8:21 PM) Oxygen Therapy Room air (08/25/23 11:37 AM) Room air (08/25/23 8:00 AM) Room air (08/25/23 3:09 AM) Oxygen Flow Rate 2 L/min (08/24/23 12:20 PM) 2 L/min (08/24/23 11:50 AM) 3 L/min (08/24/23 11:40 AM) Height 170.2 cm (08/24/23 7:00 AM) Weight 104.7 kg (08/24/23 7:00 AM) Social History Social History Type Response Alcohol Never alcohol user Substance Abuse Never drug user Smoking Status Never smoker;Never; Tobacco Cessation Counseling Requested N/A entered on: 08/09/22 Sex Hospital Discharge Instructions Patient Education 08/25/2023 11:37:03 Pacemaker Implantation, Discharge Instructions (Custom)(CUSTOM) Discharge Instructions for Pacemaker Implantation You have had a procedure to insert a pacemaker. Once inside your body, this small electronic devicehelps keep your heart from beating too slowly. A pacemaker can???t fix existing heart problems. Butit can help you feel better and have more energy. As you recover, follow all of the instructions you are given, including those below. Activity ??? Don???t drive until your doctor says it???s okay. When you are able to drive be sure to keep the arm below shoulder level. ??? Follow the instructions you are given about limiting your activity. ??? You will be fitted with an arm immobilizer, keep your arm in the immobilizer for the first 24 hours and when you are sleeping. If you cannot remember not to lift your arm above shoulder level then wear immobilizer during the day as well. ??? Do not raise your arm on the incision side above shoulder level for 30 days. This gives the device lead wires time to attach securely inside your heart. ??? Make sure you are moving the arm 4 times daily but not above shoulder level. Stir the pot ??? Ask your doctor when you can expect to return to work. ??? You can still exercise. It???s good for your body and your heart. Talk with your doctor about an exercise plan. Other Precautions ??? You can shower but do not let the shower jets hit the dressing directly. Do not remove the dressing until you see Mariana at the clinic. ??? No bath tub, hot tub, pool or aldana. Do not submerse the site in water. ??? Learn to take your own pulse. Keep a record of your results. Ask your doctor what pulse rate means you should call for medical attention. ??? Before you receive any treatment, tell all healthcare providers (including your dentist) that you have a pacemaker. ??? Carry an ID card that contains information about your pacemaker. You can show this card if yourpacemaker sets off a metal detector. You should also show it to avoid screening with a hand-held security wand. ??? Avoid strong magnets. Examples are those used in MRIs or in hand-held security wands. ??? Avoid strong electrical bae. Examples are those made by radio transmitting towers, ???ham?? radios, and heavy-duty electrical equipment. ??? Avoid leaning over the open scott of a running car. A running engine creates an electrical field. ??? Avoid bending over (tying/putting on shoes) until follow up appointment w/ ripsaw grader. Follow-Up ??? See your ripsaw grader in 3 months. The clinic will be calling you to set up an appointment. ??? Make regular follow-up appointments with your doctor. He or she will check the pacemaker to make sure it???s working properly. When to Call Your Doctor Call your doctor immediately if you have any of the following: ??? Dizziness ??? Chest pain ??? Lack of energy ??? Fainting spells ??? Twitching chest muscles ??? Rapid pulse or pounding heartbeat ??? Shortness of breath ??? Pain around your pacemaker ??? Fever above 100.4??F or other signs of infection (redness, swelling, drainage, or warmth at theincision site) ??? Hiccups that won???t stop ?? [id number] [place] [address]. All rights reserved. This information is not intended as a substitute for professional medical care. Always follow your healthcare professional's instructions. Note * Kathy Santillan RN: PERFORM Event Display: Vital Signs at Discharge - Text Authored Date: [id number] Vital Signs at Discharge Entered On: 08/25/2023 11:37 CDT Performed On: 08/25/2023 11:37 CDT by Kathy Santillan RN Vital Signs Oxygen Therapy : Room air Kathy Santillan RN - 08/25/2023 11:37 CDT * Kathy Santillan RN: PERFORM Event Display: Nursing Discharge Instructions - Text Authored Date: [id number] Nursing Discharge Instructions Entered On: 08/25/2023 11:35 CDT Performed On: 08/25/2023 11:34 CDT by Kathy Santillan RN Patient Discharge Location Discharge Location IP : Home Discharge Location IP Home : Yes Kathy Santillan RN - 08/25/2023 11:34 CDT Home Discharge Instructions Inpatient/Observation Instructions : After you leave the hospital, you may call the Nursing Unit within 24 hours of your discharge if you have any questions about these instructions. If any medical problems occur or your symptoms get worse, call your doctor immediately. Inpatient/Observation Instructions Freetext : After you leave the hospital, you may call the Nursing Unit within 24 hours of your discharge if you have any questions about these instructions. In any medical problems occur or your systems get worse, or you have questions, call your doctor immediately Patient Home Medications Returned : No home medications Nursing Unit Wound Measured at Discharge : N/A Respiratory Therapy After Discharge : Not applicable Discharge Medication Planning : Discharge Medication Information provided, Medication Side Effects Information explained and provided, Ability to obtain prescribed medication confirmed, Due to medications you have received, you should not drive a vehicle or operate machinery for 24 hours Kathy Santillan RN - 08/25/2023 11:34 CDT * [facility] Hebrew Cantor: PERFORM Event Display: ROI_Correspondence Authored Date: [id number] * Kathy Santillan RN: PERFORM Event Display: Pain Reassessment - Text Authored Date: [id number] Pain Reassessment Entered On: 08/25/2023 11:22 CDT Performed On: 08/25/2023 11:00 CDT by Kathy Santillan RN Intervention Information: acetaminophen Performed by Kathy Santillan RN on 08/25/2023 10:00:00 CDT acetaminophen,650mg Oral,pain, mild(c) Pain Response Primary Pain Intensity : 1 Pain Medication Effective : Yes Pain Med Sedation Score : 0 = No sedation; patient awake Kathy Santillan RN - 08/25/2023 11:22 CDT * Event Display: Authorization to Treat Authored Date: [id number] * Event Display: Authorization to Treat Authored Date: [id number] * Jarett Baugh HAT LINING BLOCKER: SIGN, VERIFY, PERFORM, MODIFY Event Display: Anesthesia Preoperative Evaluation Authored Date: [id number] Patient: KRISTEL HASSAN Age: 68 years Sex: Female : 1955 Associated Diagnoses: None Author: Jarett Baugh CRNA Preoperative Information Patient NPO Status: Last Intake Info from Nurses Notes : Last Fluid/Food Intake 08/24/2023 07:00 CDT Last Fluid Intake 08/24/2023 06:00 Last Food Intake 08/23/2023 18:30 . Anesthesia history: Anes/Transfusion Hx from Nursing Notes : Anesthesia and Transfusion History 09/06/2016 12:36 CDT Type of Anesthesia Reaction needs scop patch . Patient history: No difficult intubation, No malignant hyperthermia. Family history: No malignant hyperthermia. Re-evaluation prior to induction: Completed. Initial evaluation reviewed: No significant interval change. Lines and Tubes: Peripheral catheter. Review of Systems Constitutional: No fever, No chills, No weakness, No fatigue. Eye: No recent visual problem, No double vision. Ear/Nose/Mouth/Throat: No decreased hearing, No nasal congestion, No sore throat. Respiratory: Denies recent shortness of breath that has changed from baseline, No shortness of breath, No cough, No sputum production, No wheezing, No apnea. Cardiovascular: Patient denies recent chest pain but admits to recent dizziness and syncopal episode on 08/21/23. , No chest pain, No palpitations, No syncope. Gastrointestinal: No nausea, No vomiting, No diarrhea. Genitourinary: No dysuria. Hematology/Lymphatics: No bruising tendency, No bleeding tendency. Immunologic: Not immunocompromised. Musculoskeletal: No back pain, No neck pain. Integumentary: No abrasions, No breakdown. Neurologic: Alert and oriented X4. Psychiatric ROS reviewed as documented in chart Health Status Allergies: Allergies (2) Active Severity Reaction iodine None Documented Latex Rash Current medications: Home Medications (16) Active alendronate 35 mg oral tablet 35 mg = 1 tablet(s), Oral, qWeek Antivert 25 mg oral tablet 25 mg = 1 tablet(s), PRN, Oral, tid atorvastatin 40 mg oral tablet 40 mg = 1 tablet(s), Oral, daily celecoxib 200 mg oral capsule 200 mg = 1 capsule(s), PRN, Oral, daily celecoxib 200 mg oral capsule 200 mg = 1 capsule(s), PRN, Oral, daily Eliquis 5 mg oral tablet 5 mg = 1 tablet(s), Oral, bid estradiol 1.5 mg oral tablet 1 tablet, Oral, daily Gemtesa 75 mg oral tablet 75 mg = 1 tablet(s), Oral, daily Lasix 20 mg oral tablet 20 mg = 1 tablet(s), Oral, daily lisinopril 10 mg oral tablet 10 mg = 1 tablet(s), Oral, daily magnesium oxide 400 mg oral tablet 400 mg = 1 tablet(s), Oral, daily Potassium Chloride (Eqv-K-Tab) 20 mEq oral tablet, extended release 20 mEq = 1 tablet(s), Oral, bidwith meals PreserVision AREDS PreserVision AREDS 2 oral capsule , bid Sotalol HCL AF 80 mg, Oral, bid spironolactone 25 mg oral tablet 25 mg = 1 tablet(s), Oral, daily , No qualifying data available Problem list: Active Problems (31) E55.9 Vitamin D deficiency M19.90 Arthritis E87.6 Hypokalemia HCC: Atrial fibrillation I48.91 M79.1 Myalgia R00.2 Palpitation Arthralgia Bursitis Cardiac murmur Chronic anticoagulation Colon, diverticulosis Dizziness E78.5 Hyperlipidemia Gall stones Hammertoe History of Jordanian measles History of syncope HTN (hypertension) IBS (irritable bowel syndrome) Injury of plantar plate of right foot Kidney stones Light headedness M77.9 Tendonitis Mild aortic stenosis Myositis 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 on library monitor Pacemaker Pacemaker lead malfunction Paroxysmal atrial fibrillation R53.83 Fatigue Syncope Histories Past Medical History: No active or resolved past medical history items have been selected or recorded. Family History: Cardiac arrest Father Aortic valve disorder Father Heart disease Brother Mother Father Myocardial infarction Father Hypertension Mother Aneurysm Mother Aortic valve stenosis. Father Procedure history: Procedure on lower leg ([id number]) on 03/04/2021 at 65 Years. Comments: 08/03/2021 11:01 CDT - Judy Guillaume RN broken fibula Cholecystectomy ([id number]). Percutaneous extraction of kidney stone with fragmentation procedure (90457556). Radiofrequency ablation of lesion of heart (6885219359). Coronary heart disease monitoring (8250187868). Laparoscopic adjustable gastric banding (6423573453). Arthroscopic knee operation (0457879550). Comments: 09/06/2016 12:47 CDT - Laurie Henao RN 2 on left and 1 on right Abdominal hysterectomy (256536272). Heart rate monitoring (201795221). foot bone spur. Implantation of cardiac pacemaker (756714002). Social History Social Hx from Nurses Notes : Social Habits 08/24/2023 07:02 CDT Social History Reviewed Yes . Physical Examination Intake and Output No I & O Data Available Vital Signs (last 24 hrs) Last Charted Temp Temporal 36.4 DegC (AUGUST 23 07:00) Heart Rate Peripheral 65 bpm (AUGUST 23 07:00) SBP 115 mm Hg (AUGUST 23 07:00) DBP 63 mm Hg (AUGUST 23 07:00) PACU - Vital Signs 08/24/2023 07:00 CDT Temperature Temporal Artery 36.4 DegC Peripheral Pulse Rate 65 bpm Respiratory Rate 16 br/min Systolic Blood Pressure 115 mm Hg Diastolic Blood Pressure 63 mm Hg Primary Pain Intensity 0 = No pain Oxygen Therapy Room air Oxygen Saturation 99 % Oxygen Flow Rate 0 L/min Measurements from flowsheet : Measurements 08/24/2023 07:00 CDT Height 170.2 cm Weight 104.7 kg Pain assessment: Self-reports no pain. General: Within normal limits. Airway: Mallampati classification: III (soft palate, base of uvula visible). Mouth: Teeth ( Within normal limits ). Neck: Trachea ( Midline ). Respiratory: Lungs are clear to auscultation. Cardiovascular: Normal rate. Neurologic: Alert. Review / Management Condition: Stable. Plan [place] [employer] Anesthesiologists (ASA) physical status classification: Class III. Anesthetic Preoperative Plan Anesthesia: General. Anesthetic plan, risks, benefits, and alternatives discussed with the patient and/or family. Risks discussed: nausea, vomiting, headache, sore throat, dental injury, serious complications. Patient verbalized understanding. Family/Guardian present. Informed consent was given. Consent was signed by the patient. [Electronically Signed on 08/24/2023 09:18 AM CDT] Jarett Baugh CRNA * Jarett Baugh HAT LINING BLOCKER: MODIFY, SIGN, VERIFY, PERFORM Event Display: Anesthesia Postoperative Evaluation Authored Date: [id number] Patient: KRISTEL HASSAN Age: 68 years Sex: Female : 1955 Associated Diagnoses: None Author: Jarett Baugh CRNA Postoperative Information Post Operative Note: Post Anesthesia Care Unit. Anesthetic utilized: General. Physical Examination Intake and Output Intake Output Balance 08/23/2023 7a-3p 0 0 0 3p-11p 0 0 0 11p-7a 0 0 0 Totals 0 0 0 08/22/2023 7a-3p 0 0 0 3p-11p 0 0 0 11p-7a 0 0 0 Totals 0 0 0 Vital Signs (last 24 hrs) Last Charted Temp Temporal 36.4 DegC (AUGUST 23 07:00) Heart Rate Peripheral 65 bpm (AUGUST 23 07:00) SBP 115 mm Hg (AUGUST 23 07:00) DBP 63 mm Hg (AUGUST 23:00) Vital Signs 08/24/2023 12:20 CDT Temperature Temporal Artery 36.2 DegC Peripheral Pulse Rate 71 bpm Respiratory Rate 12 br/min L Systolic Blood Pressure 131 mm Hg Diastolic Blood Pressure 67 mm Hg Oxygen Saturation 96 % Oxygen Therapy Nasal cannula Oxygen Flow Rate 2 L/min 08/24/2023 11:50 CDT Peripheral Pulse Rate 69 bpm Heart Rate Monitored 70 bpm Respiratory Rate 11 br/min L* Systolic Blood Pressure 115 mm Hg Diastolic Blood Pressure 53 mm Hg L Oxygen Saturation 96 % Oxygen Therapy Nasal cannula Oxygen Flow Rate 2 L/min Primary Pain Intensity 0 = No pain Primary Pain Alleviating Factors Rest PT having symptoms of nausea + vomiting? No 08/24/2023 11:40 CDT Peripheral Pulse Rate 71 bpm Heart Rate Monitored 71 bpm Respiratory Rate 12 br/min L Systolic Blood Pressure 107 mm Hg Diastolic Blood Pressure 63 mm Hg Oxygen Saturation 90 % L Oxygen Therapy Nasal cannula Oxygen Flow Rate 3 L/min Primary Pain Alleviating Factors Rest Faces Pain Assessment Score 0 Pain Med Sedation Score S = Sleepy; normal to arouse PT having symptoms of nausea + vomiting? No 08/24/2023 11:37 CDT Primary Pain Intensity 7 = severe pain (Modified) 08/24/2023 11:30 CDT Peripheral Pulse Rate 73 bpm Heart Rate Monitored 74 bpm Respiratory Rate 18 br/min Systolic Blood Pressure 114 mm Hg Diastolic Blood Pressure 61 mm Hg Oxygen Saturation 92 % (Modified) Oxygen Therapy Nasal cannula (Modified) Oxygen Flow Rate 4 L/min Primary Pain Intensity 3 = mild pain Primary Pain Alleviating Factors Rest Pain Med Sedation Score 0 = No sedation; patient awake PT having symptoms of nausea + vomiting? No 08/24/2023 11:20 CDT Peripheral Pulse Rate 75 bpm Heart Rate Monitored 76 bpm Respiratory Rate 16 br/min Systolic Blood Pressure 104 mm Hg Diastolic Blood Pressure 76 mm Hg Oxygen Saturation 92 % Oxygen Therapy Room air Primary Pain Intensity 3 = mild pain Primary Pain Alleviating Factors Rest Pain Med Sedation Score S = Sleepy; normal to arouse PT having symptoms of nausea + vomiting? No 08/24/2023 11:10 CDT Temperature Temporal Artery 36 DegC Peripheral Pulse Rate 76 bpm Heart Rate Monitored 77 bpm Respiratory Rate 13 br/min L Systolic Blood Pressure 127 mm Hg Diastolic Blood Pressure 73 mm Hg Oxygen Saturation 98 % Oxygen Therapy Non-Rebreather mask Oxygen Flow Rate 12 L/min Primary Pain Intensity 3 = mild pain Primary Pain Alleviating Factors Rest Pain Med Sedation Score S = Sleepy; normal to arouse PT having symptoms of nausea + vomiting? No Pain assessment: Self-reports no pain. General: Within normal limits. Nausea and Vomiting: No complaint of nausea and vomiting. Hydration: Within normal limits. Airway: Mouth: Tongue, Teeth ( Within normal limits, dentition remains unchanged from preop condition ), Palate. Throat: Uvula. Neck: Trachea. HENT: Normocephalic. Respiratory: Lungs are clear to auscultation, Respirations are non-labored, Breath sounds are equal, Symmetrical chest wall expansion. Cardiovascular: Normal rate, Regular rhythm, No murmur, No gallop. Gastrointestinal: Soft, Non-tender, Non-distended. Integumentary: Warm, Dry, Intact. Neurologic: Mental status unchanged from pre-op status with no obvious gross focal neurological changes, Alert, Oriented. Review / Management Condition: Stable. Assessment Anesthetic outcome No anesthetic complications noted. Plan Transfer/ Discharge: Patient can be discharged from PACU when criteria met, Patient can be discharged from anesthesia care. [Electronically Signed on 08/24/2023 12:41 PM CDT] Jarett JOHN Baugh * Anuradha Baumann RN: PERFORM Event Display: Pain Reassessment - Text Authored Date: [id number] Pain Reassessment Entered On: 08/24/2023 23:53 CDT Performed On: 08/24/2023 23:53 CDT by Anuradha Baumann RN Intervention Information: tramadol Performed by Anuradha Baumann RN on 08/24/2023 22:53:00 CDT traMADol,50mg Oral,pain, moderate Pain Response Pain Medication Effective : Patient sleeping Pain Med Sedation Score : S = Sleepy; normal to arouse Anuradha Baumann RN - 08/24/2023 23:53 CDT * Geraldine Medina RN: PERFORM Event Display: Pain Reassessment - Text Authored Date: [id number] Pain Reassessment Entered On: 08/24/2023 17:31 CDT Performed On: 08/24/2023 17:30 CDT by Geraldine Medina RN Intervention Information: tramadol Performed by Geraldine Medina RN on 08/24/2023 15:45:00 CDT traMADol,50mg Oral,pain, moderate Pain Response Primary Pain Intensity : 0 Pain Medication Effective : Yes Geraldine Medina RN - 08/24/2023 17:30 CDT * Event Display: ROI_Correspondence Authored Date: [id number] * Event Display: ROI_Correspondence Authored Date: [id number] Progress note * Esperanza Membreno CORPORATE TRAVEL COORDINATOR: PERFORM Event Display: Progress Note Authored Date: [id number] SOAP Note: Simple * ?? Patient:?KRISTEL HASSAN? Age:??68 year old?Sex:??female?? :??1955 ? Subjective _ Patient is doing??ok.?? Last night??site sore but otherwise ok No chest pain or discomfort to speak of, no new dyspnea. Able to ambulate some, able to eat without issues. ? Objective ?? Vitals?Temp?BP?Pulse?RR?SpO2?FIO2?Date?Wt(kg)?Wt(lb) 08/24 08:00?36.1?103/51?60?18?98?RA?08/23?104.7?2 30 08/24 03:09?36.6?111/63?74?18?97?RA 08/23 20:21?36.7?111/54?73?16?97?RA 08/23 15:00?36.5?104/57?72?16?98?RA 08/23 12:20?36.2?131/67?71?12?96?2.0L/m 24 Hr Tmax:??36.7 at 08/23 20:21 36 Hr Tmax:??36.7 at 08/23 20:21 Vital Signs are the last 5 in the past 48 hours. Weights display the last 5 within 7 days. Initial Wt:??08/23 ?? 104.7 kg ?? 230 lb ?? General: ??Const: ?Pleasant, appropriate, not confused, not in extremis,??sitting up in chair Eyes: ?No scleral icterus ENMT:?No notable jugular venous distension, otherwise normocephalic, atraumatic Resp: ?Breathing??unlabored, speech??unlabored, chest??no cough, no wheeze CV:?Regular??rate,??regular??rhythm,??no premature beats Skin: ?No clubbing, cyanosis. No upper extremity edema, skin warm and dry Gait:??moving all extremities without issues Site:??I removed pressure dressing,??scant dryblood on??intact steristrips.??Site itself has??no??hematoma,??no??ecchymoses,?no??drainage, and??no??erythema.? Results Review Interpretation of Results Chest xray??on my interpretation and review shows??wiring position ok, no pneumothorax _ Device interrogation on my review shows ok sensing, pacing parameters and impedance ?? Impression and Plan Assessment and Plan: ? Diagnosis: Patient doing well,??anticipate discharge today. postop activity and wound restrictions reviewed; follow-up reviewed; antibiotic rx sent in; questions solicited and answered, patient doing well.? [Electronically Signed on 08/25/2023 11:09 AM CDT] Esperanza Membreno NP Surgical operation note * Keith Condon MD: PERFORM, SIGN, VERIFY Event Display: Operative Report Authored Date: [id number] Patient: KRISTEL HASSAN Age: 68 years Sex: Female : 1955 Associated Diagnoses: None Author: Keith Condon MD Notes [place] [address] OPERATIVE REPORT NAME: KRISTEL HASSAN DATE OF : 1955 PROCEDURE DATE: 08/24/2023 SURGEON: Keith Condon MD PREOPERATIVE DIAGNOSIS: Pacemaker malfunction POSTOPERATIVE DIAGNOSES: Same PROCEDURE PERFORMED: Pacemaker pulse generator removal and then reimplantation Revision of the chronic RV pacing lead IDENTIFYING INFORMATION: The patient is a patient of Dr. Scales. She underwent pacemaker implantation at another facility. She experienced a RV lead dislodgment. The lead was repositioned at the outside hospital. She experiences intolerable chest wall thumping with ventricular pacing. She presents for correction of thisproblem with the ventricular lead. We will reposition or replace the current RV lead. I reviewed the procedure with the patient; her niece was present. We reviewed the risks of the procedure. I estimate at least a 2% risk of infection. Risk of pneumothorax perhaps 1%. Life-threatening risks, including vascular inhury and cardiac perforation and tamponade, less than 1% risk. In addition to the kenia dard risks there is the risk that the current RV lead has perforated and its removal will allow bleeding and tamponade. Patient was recommended to use [facility] scrub leading up to this procedure. PROCEDURAL DETAILS: The patient brought to the lab in a fasting state. Anesthesia provided sedation services including MAC. We premedicated the patient for contrast allergy, though in the end we did not utilize any contrast. Bilateral chest clipped, prepped and draped in sterile fashion. I was present for the procedure and I prepared this report. Proper preprocedural pause was done to identify the patient, procedure, location, allergies, and physician. Proper monitoring included surface EKG, noninvasive blood pressure and saturation monitoring as well as defib pads in place. After proper prep of the patient, table and staff, the procedure started. Left chest infiltrated with lidocaine. Incision made with a blade, carried down to the pectoral fascia/device with plasmablade electrocautery and blunt dissection and entered the pocket. The device was removed, a retention stitch was present and removed. The ventricular lead was removed from the pacemaker header; the RA lead was never removed. Access was easilyobtained to the left axillary vein but I could not advance the wire more than a few centimeters into the subclavian vein. I again accessed the left axilary vein , from a different angle of approach, but still could not advance the guidewire. At this point our options were to perform venography and perhaps eventually passed the guidewire utilizing serial dilators, stiff wires etc. The other approach was to simply reposition the nonfunctioning RV lead and that seem like the simpler, safer approach. The helix at the end of the RV lead was retracted and the lead was pulled back. We got frequent blood pressures and the patient was hemodynamically stable. I repositioned the RV lead to the apical to mid septum, where we obtained excellent pacing and sensing thresholds without any diaphragmatic st imulation. The lead was secured to the underlying pectoralis muscle and then attached to the chronic pulse generator. The pocket was irrigated with antibiotic containing solution and the pulse generator and attached leads were placed within the pocket. It was at that point we noted that the RV leadhad dislodged and was laying at the right ventricular apex. Therefore, all hardware was removed from the pocket, the RV lead was removed from the pacemaker header and using a series of straight and curved stylets I again positioned the RV lead upon the apical to mid septum. Once again the lead was analyzed with a pace sense analyzer as above. The lead was secured in place with ties to the pectoral is muscle and the inserted into the pacemaker pulse generator. The pulse generator was secured witha retention suture. The pocket was extensively irrigated with antibiotic containing solution. The incision was closed with 3 layers of running Vicryl suture. The patient was hemodynamically stable thr oughout the entire procedure. There were no apparent complications; CXR pending. ESTIMATED BLOOD LOSS: Minimal. COMPLICATIONS: None. SPECIMENS: None DYE USED: None. FLUOROSCOPY USED: Yes No new hardware was implanted during this procedure. No hardware was explanted; everything that wasremoved was ultimately reimplanted. Atrial sensing 4.7 mV Ventricular sensing 9.1 mV Impedance in the right atrium / right ventricle 565/ 819 ohms Thresholds 1.0 V @ 0.4 ms in the atrium, 0.6 V @ 0.4 ms in the right ventricle Hardware used: This is a Biotronik system. Biotronik pulse generator model Edora 8 DR-T serial number [id number] Atrial lead: Solia S53 MRI serial number [id number] Ventricular lead: Solia S60 MRI serial number [id number] Programming: DDD 60-130 BPM Results explained to his family at her preop consent, Cerner postop instructions added, antibiotic Rx electronically sent in . Keith Condon M.D. [Electronically Signed on 08/24/2023 06:24 PM CDT] Keith Condon MD Cardiology * Event Display: Telemetry, Paper * Event Display: Telemetry, Paper Electrophysiology Office/Clinic Note * Keith Condon MD: PERFORM, SIGN, VERIFY Event Display: Electrophysiology Office/Clinic Note Authored Date: [id number] Patient: KRISTEL HASSAN Age: 68 years Sex: Female : 1955 Associated Diagnoses: None Author: Keith Condon MD Notes Patient presents for pacemaker RV lead revision. We will reposition or replace the current RV lead.I reviewed the procedure with the patient; her niece was present. We reviewed the risks of the procedure. I estimate at least a 2% risk of infection. Risk of pneumothorax perhaps 1%. Life-threateningrisks, including vascular inhury and cardiac perforation and tamponade, less than 1% risk. In addition to the standard risks there is the risk that the current RV lead has perforated and its removal will allow bleeding and tamponade. Hospital Summary note * Kathy Santillan RN: PERFORM Event Display: Inpatient Patient Summary Authored Date: [id number] Thank you for choosing [facility]???[facility] for your health care. Routine checkups and screenings are an important part of staying healthy. [facility]s entire network of care is open, safe and ready to provide you with the very best patient-focused care. KRISTEL HASSAN :1955 Visit Date:08/24/2023 Inpatient Discharge Instructions [facility] would like to thank you for allowing us to assist you with the healthcare needs. The following information includes patient education materials and information regarding your injury/illness. Our entire staff strives to provide a very good experience for our patients and their families. You may receive, by mail, a survey about your experience with us at [facility].PLEASE ENSURE YOU FOLLOW-UP PER THE INSTRUCTIONS BELOW. Location Information ?[facility]?[address] ?? Your Care Team Admitting Physician - Keith Condon MD Attending Physician - Keith Condon MD Primary Care Physician - Bianca Aggarwal NP Referring Physician - Roger Scales MD Reason for Your Visit OPT, JV CONDON LEAD REVISION (MDT) Your Diagnosis Discharge Orders Discharge Instructions ?Diet Instructions post Discharge?Diet post Discharge?See Special Instructions ?Diet Instructions post Discharge?Special Instructions?Hearthealthy diet is always recommended. ?Discharge Patient to?Discharge Disposition?HOME/PHYSICIAN FOLLOW UP ?Discharge Patient to?Special Instructions?D/C to home IF vitals ok, patient back to baseline after ~12:00 05/18/2022 ?Follow-up instructions post Discharge?Follow-up Instuctions post Discharge?Follow up: Dr. Avalos's office in ??2-4 weeks. ??Call [phone] to set up ?Follow-up instructions post Discharge?Follow-up Instuctions post Discharge?Follow up: Dr. Condon's office in ??2-4 weeks. ??Call [phone] to set up ?Follow-up instructions post Discharge?Follow-up Instuctions post Discharge?Follow up with your primary care doctor and ripsaw grader in 3-4 weeks ?Special Discharge Instructions?Special Instructions?call ifany chest pain or discomfort, shortness of breath, trouble or painful swallowing, groin or leg numbness, tingling, coldness or pain, fevers, or any other concerns in next month ?Special Discharge Instructions?Stop Date/Time?08/25/23 9:30:00 CDT ?Special Discharge Instructions?Special Instructions?keep incision dry (no shower) x 7 days. Don't put anything on wound-no cream/lotion/betadine x 2 weeks. No driving x 2 weeks. Remove steristrips 2 weeks after surgery; Don't lift over 10 pounds x 6 weeks. Don't raise elbow over shoulder height x 6 weeks. ?Special Discharge Instructions?Stop Date/Time?08/25/23 9:30:00 CDT ?Special Discharge Instructions?Special Instructions?May resume eliquis in 48 hours post procedure if device site is dry without bleeding or drainage ?Special Discharge Instructions?Stop Date/Time?08/25/23 11:07:00 CDT ?Contact your Surgeon?Follow-up Instuctions post Discharge?Contact your surgeon for pain or other questions/concerns. ?? Instructions From Your Doctor Nursing Discharge Instructions Inpatient/Observation Instructions: After you leave the hospital, you may call the Nursing Unit within 24 hours of your discharge if you have any questions about these instructions. ??If any medical problems occur or your symptoms get worse, call your doctor immediately. Nursing Unit Patient Home Medications Returned: No home medications Respiratory Therapy After Discharge: Not applicable Discharge Medication Planning: Discharge Medication Information provided, Medication Side Effects Information explained and provided, Ability to obtain prescribed medication confirmed, Due to medications you have received, you should not drive a vehicle or operate machinery for 24 hours No qualifying data available. Tests Pending Procedures History ???Procedure on lower leg (03/04/2021)???Abdominal hysterectomy???Arthroscopic knee operation???Cholecystectomy???Coronary heart disease monitoring???foot bone spur???Heart rate monitoring???Implantation of cardiac pacemaker???Laparoscopic adjustable gastric banding???Percutaneous extraction of kidney stone with fragmentation procedure???Radiofrequency ablation of lesion of heart Discharge Vitals What to do next Scheduled Follow-Up Appointments Tuesday 11:00 AM CDT ?? With: Where: [facility] [address] [place], [place] [id number] Tuesday 11:30 AM CDT ?? With: Roger Scales MD Where: [facility] [address] [place] [id number] You Need to Schedule the Following Appointments Follow Up with??Keith Condon When??Within 2 to 4 weeks Why: Call for follow up appointment Where: [address] [place] [address] [place] [phone]- Business (1) The Following Equipment/Services/Treatments Have Been Arranged For You No qualifying data available. Medications [facility] provided you with a completed list of medications post discharge, share the list of your current medications with your primary care physician; update the information when medications are discontinued, doses are changed, or new medications (including over the counter products) are added; and carry medication information at all times in the event of emergency situations. What How Much When Instructions Side Effects Next Dose Unchanged alendronate (alendronate 35 mg oral tablet) 1 tablet(s) By mouth Every week Unchanged apixaban (Eliquis 5 mg oral tablet) 1 tablet(s) By mouth 2 times a day Unchanged atorvastatin (atorvastatin 40 mg oral tablet) 1 tablet(s) By mouth Daily Unchanged celecoxib (celecoxib 200 mg oral capsule) 1 capsule(s) By mouth Daily as needed for for pain Unchanged celecoxib (celecoxib 200 mg oral capsule) 1 capsule(s) By mouth Daily as needed for for pain Unchanged cephalexin (Keflex 500 mg oral capsule) 1 capsule(s) By mouth 4 times a day Duration: 5 day(s) Pickup at [facility] Unchanged estradiol (estradiol 1.5 mg oral tablet) [...] day as needed for for dizziness Unchanged multivitamin with minerals (PreserVision AREDS 2 oral capsule) 2 times a day Unchanged multivitamin with minerals (PreserVision AREDS) Unchanged potassium chloride (Potassium Chloride (Eqv-K-Tab) 20 mEq oral tablet, extended release) 1 tablet(s) By mouth 2 times a day with meals Unchanged sotalol (Sotalol HCL AF) 80 Milligram By mouth 2 times a day Unchanged spironolactone (spironolactone 25 mg oral tablet) 1 tablet(s) By mouth Daily Unchanged vibegron (Gemtesa 75 mg oral tablet) 1 tablet(s) By mouth Daily Pharmacy Information [facility]: [address] [place], [place] [id number] [phone] Immunizations This Visit Allergies Latex??(Rash) iodine Problems Ongoing Arthralgia Bursitis Cardiac murmur Chronic anticoagulation Colon, diverticulosis Dizziness E55.9 Vitamin D deficiency E78.5 Hyperlipidemia E87.6 Hypokalemia Gall stones [place] HCC: Atrial fibrillation I48.91 History of Jordanian measles History of syncope HTN (hypertension) IBS (irritable bowel syndrome) Injury of plantar plate of right foot Kidney stones Light headedness M19.90 Arthritis M77.9 Tendonitis M79.1 Myalgia Mild aortic stenosis Myositis 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 on library monitor Pacemaker Pacemaker lead malfunction Paroxysmal atrial fibrillation R00.2 Palpitation R53.83 Fatigue Syncope PatientStated No qualifying data Historical No qualifying data Medication Information ?? Education Materials Discharge Instructions for Pacemaker Implantation You have had a procedure to insert a pacemaker. Once inside your body, this small electronic devicehelps keep your heart from beating too slowly. A pacemaker can???t fix existing heart problems. Butit can help you feel better and have more energy. As you recover, follow all of the instructions you are given, including those below. Activity ? Don???t drive until your doctor says it???s okay. When you are able to drive be sure to keep the arm below shoulder level. ? Follow the instructions you are given about limiting your activity. ? You will be fitted with an arm immobilizer, keep your arm in the immobilizer for the first 24 hoursand when you are sleeping. If you cannot remember not to lift your arm above shoulder level then wear immobilizer during the day as well. ? Do not raise your arm on the incision side above shoulder level for 30 days. This gives the device lead wires time to attach securely inside your heart. ? Make sure you are moving the arm 4 times daily but not above shoulder level. Stir the pot ? Ask your doctor when you can expect to return to work. ? You can still exercise. It???s good for your body and your heart. Talk with your doctor about an exercise plan. Other Precautions ? You can shower but do not let the shower jets hit the dressing directly. Do not remove the dressinguntil you see Mariana at the clinic. ? No bath tub, hot tub, pool or aldana. Do not submerse the site in water. ? Learn to take your own pulse. Keep a record of your results. Ask your doctor what pulse rate means you should call for medical attention. ? Before you receive any treatment, tell all healthcare providers (including your dentist) that you have a pacemaker. ? Carry an ID card that contains information about your pacemaker. You can show this card if your pacemaker sets off a metal detector. You should also show it to avoid screening with a hand-held security wand. ? Avoid strong magnets. Examples are those used in MRIs or in hand-held security wands. ? Avoid strong electrical bae. Examples are those made by radio transmitting towers, ???ham?? radios, and heavy-duty electrical equipment. ? Avoid leaning over the open scott of a running car. A running engine creates an electrical field. ? Avoid bending over (tying/putting on shoes) until follow up appointment w/ ripsaw grader. Follow-Up ? See your ripsaw grader in 3 months. The clinic will be calling you to set up an appointment. ? Make regular follow-up appointments with your doctor. He or she will check the pacemaker to make sure it???s working properly. When to Call Your Doctor Call your doctor immediately if you have any of the following: ? Dizziness ? Chest pain ? Lack of energy ? Fainting spells ? Twitching chest muscles ? Rapid pulse or pounding heartbeat ? Shortness of breath ? Pain around your pacemaker ? Fever above 100.4??F or other signs of infection (redness, swelling, drainage, or warmth at the incision site) ? Hiccups that won???t stop ?? [id number] [facility], [address] [place] [address], [place] [address]. All rights reserved. This information is not intended as a substitute for professional medical care. Always follow your healthcare professional's instructions. Patient Portal Information [facility] the [address] is a secure online tool where you can access your personal health records, test results, visit summaries or request follow up appointments. The portal can be accessed on the hospital website [email or web address] where you can self-enroll if you did not do so on registration. If you need assistance logging in, please call . For questions regarding medications or other healthconcerns after discharge, please contact your physician???s office. [facility]:[id number] Location:[facility] Registration Date and Time:08/24/2023 06:12 CDT Primary Care Physician: Bianca Aggarwal CORPORATE TRAVEL COORDINATOR, Attending Physician: Keith Condon MD, Designated Caregiver: I have received the above patient education materials/instructions and have verbalized understanding. 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 Provider Signature: Date/Time: Final Medication List We have provided this final list of active medications as a courtesy so that you can easily update your home records and provide to your physician(s). These are the only medications that you should be taking. Please review carefully and contact your doctor prior to taking any medications NOT on this list. Unchanged alendronate (alendronate 35 mg oral tablet)1 tablet(s) By mouth every week. apixaban (Eliquis 5 mg oral tablet)1 tablet(s) By mouth 2 times a day. atorvastatin (atorvastatin 40 mg oral tablet)1 tablet(s) By mouth daily. celecoxib (celecoxib 200 mg oral capsule)1 capsule(s) By mouth daily as needed for pain. celecoxib (celecoxib 200 mg oral capsule)1 capsule(s) By mouth daily as needed for pain. cephalexin (Keflex 500 mg oral capsule)1 capsule(s) By mouth 4 times a day for 5 day(s). Refills: 0. estradiol (estradiol 1.5 mg oral tablet)1 tablet By mouth daily. furosemide (Lasix 20 mg oral tablet)1 tablet(s) By mouth daily. lisinopril (lisinopril 10 mg oral tablet)1 tablet(s) By mouth daily. magnesium oxide (magnesium oxide 400 mg oral tablet)1 tablet(s) By mouth daily for 14 day(s). meclizine (Antivert 25 mg oral tablet)1 tablet(s) By mouth 3 times a day as needed for dizziness. multivitamin with minerals (PreserVision AREDS 2 oral capsule)2 times a day. multivitamin with minerals (PreserVision AREDS) potassium chloride (Potassium Chloride (Eqv-K-Tab) 20 mEq oral tablet, extended release)1 tablet(s)By mouth 2 times a day with meals. sotalol (Sotalol HCL AF)80 Milligram By mouth 2 times a day. spironolactone (spironolactone 25 mg oral tablet)1 tablet(s) By mouth daily. vibegron (Gemtesa 75 mg oral tablet)1 tablet(s) By mouth daily. Anesthesia records * Event Display: Anesthesia Record Authored Date: Patient Care team information Care Team Personnel Name: Krzysztof Avalos MD Position: Physician - Electrophysiology Member Role: Cutter Brake Lining Address: Address: [address] [place] [address] [place] [address] Name: Vernon Richey MD Position: Physician - Internal Medicine Member Role: Specialist Physician Address: Address: [address] [place] [address] [place] Name: Bianca Aggarwal CORPORATE TRAVEL COORDINATOR Position: JESUS FAX ONLY - MD NOT ON STAFF Member Role: Primary Care Physician Address: Address: [address] [place] [address] Name: Esperanza Membreno CORPORATE TRAVEL COORDINATOR Position: AMB CORPORATE TRAVEL COORDINATOR/PA Member Role: Nurse Practitioner Address: Address: [address] [facility] [address] [place] [id number] [place] Care Team Related Persons Name: REGINE HASSAN Address: [address] [phone] [facility] Name: SOFIA TESFAYE
--- OUTSIDE RECORDS SUMMARY | 2024-04-04 19:39 | XMS_ITS | Encounter Summary ---
Author Organization [facility] Health Address [address] [place] [address] Care Team Providers Care Licensed Therapist Name Role Phone Unavailable Primary Care Provider Unavailabl e Reason for Visit * Reason Comments Contact Lens Exam Encounter Details Date Type Department Care Team (Late st Contact Info) Description 04/25/2019 12:45 PM RECOVERY MANAGER Office Visit [facility] [address] [place] [address] [place] [address] [place] [phone] Myopia, bilateral (Primary Dx) Social History Tobacco [...] as of this encounter Progress Notes * Mariana Figueroa, OD - 04/27/2019 10:28 AM CST Brenna Chatterjee is a 64 year old female who is being seen at the request of Dr. Woodson for Chief Complaint Patient presents with ??? Contact Lens Exam Here for contact lens dispense/check. Has appointment with retina following this appointment. Allergies: is allergic to flecainide. EXAM: Base Eye Exam Visual Acuity (Snellen - Linear) Right Left Dist cc 20/20 20/200 Neuro/Psych Mood/Affect: Normal Slit Lamp and Fundus [...] Diameter Sphere Lens Dist VA Centration Movement Right Fluorperm 60 7.98 9.5 -4.50 RGP 20/20 Well-centered Adequate Left Fluoroperm 60 7.90 9.5 -5.50 RGP 20/100 Well-centered - good lid attachment Adequate IMPRESSION: 1. POHS OU 2. Degenerative myopia OS 3. Myopia with presbyopia OU RECOMMENDATION: 1. & 2. Follow with retina (appointment this afternoon) 3. Dispensed trials. Follow-up in 2-3 weeks for cl check [] Patient seen and examined. Resident/Appraisal Technician note reviewed and discussed. I confirm these findings other than where revisions were made. VERY MANAGER documented in this encounter Plan of Treatment Upcoming Encounters Date Type Department Care Team (Late st Contact Info) Description 08/13/2024 10:00 AM CDT Office Visit [facility] - [facility]mology [address] [place] [address], [place] [phone] Hemalatha Landers, OD [facility] [facility] [place] [phone] documented as of this encounter Visit Diagnoses Diagnosis Myopia, bilateral- Primary Myopia documented in this encounter
--- OUTSIDE RECORDS SUMMARY | 2024-04-04 19:40 | XMS_ITS | Encounter Summary ---
Author Organization [facility] Address [address] [place] [address] Care Team Providers Care Labor Relations Manager Name Role Phone Unavailable Primary Care Provider Unavailabl e Reason for Visit * Reason Comments Cough Congestion Sinusitis Encounter Details Date Type Department Care Team (Late st Contact Info) Description 01/24/2018 2:40 PM CDT Office Visit [facility] [address] [phone] Provider, Hossein Anita Peyton Acute sinusitis, recurrence not specified, unspecified location (Primary Dx); Acute bronchitis, unspecified organism Social History Tobacco Use Types Packs/Day Years Used Date Smoking Tobacco: Never Smokeless Tobacco: Never Alcohol Use Standard Drinks/Week Comments Not Asked 0 (1 standard drink = 0.6 oz pur e alcohol) Sex and Gender Information Value Date Recorded Sex Assigned at Not on file Gender Identity Not on file Sexual Orientation Not on file documented as of this encounter Last Filed Vital Signs Vital Sign Reading Time Taken Comments Blood Pressure 120/80 01/24/2018 3:05 PM CDT Pulse 82 01/24/2018 3:05 PM CDT Temperature 37.1 ??C (98.7 ??F) 01/24/2018 3:05 PM CD T Respiratory Rate - - Oxygen Saturation 98% 01/24/2018 3:05 PM CDT Inhaled Oxygen Concentration - - Weight 99.8 kg (220 lb) 01/24/2018 3:05 PM CDT Height 171.5 cm (5' 7.5 ) 01/24/2018 3:05 PM CDT Body Mass Index 33.95 01/24/2018 3:05 PM CDT documented in this encounter Patient Instructions * Patient Instructions* Nikolai Harris, STUDENT EDUCATION SPECIALIST-DRYER AND WASHER MECHANIC - 01/24/2018 3:19 PM CDT Images from the original note were not included. Sinusitis WHAT YOU NEED TO KNOW: What is sinusitis? Sinusitis is inflammation or infection of your sinuses. It is most often caused by a virus. Acute sinusitis may last up to 12 weeks. Chronic sinusitis lasts longer than 12 weeks. Recurrent sinusitis means you have 4 or more times in 1 year. What increases my risk for sinusitis? ?? Medical conditions, such as an upper respiratory infection, allergies, asthma, or cystic fibrosis ?? Dental infections or procedures, such as gum infections, tooth decay, or a root canal ?? Smoking ?? Abnormal sinus structure, such as nasal growths, swollen tonsils, or a deviated septum ?? A weak immune system, from diseases such as diabetes or HIV What are the signs and symptoms of sinusitis? ?? Fever ?? Pain, pressure, redness, or swelling around the forehead, cheeks, or eyes ?? Thick yellow or green discharge from your nose ?? Tenderness when you touch your face over your sinuses ?? Dry cough that happens mostly at night or when you lie down ?? Headache and face pain that is worse when you lean forward ?? Tooth pain, or pain when you chew How is sinusitis diagnosed? Your healthcare provider will examine you and ask about your symptoms. He or she will check inside your nose using a nasal speculum. This is a small tool used to open yournostrils. A sample of the mucus from your nose may show what germ is causing your infection. How is sinusitis treated? Your symptoms may go away on their own. Your healthcare provider may recommend watchful waiting for up to 10 days before starting antibiotics. You may need any of the following: ?? Acetaminophen decreases pain and fever. It [...] milligrams) total of acetaminophen in one day. ?? NSAIDs , such as ibuprofen, help decrease swelling, pain, and fever. This medicine is available with or without a doctor's order. NSAIDs can cause stomach bleeding or kidney problems in certain people. If you take blood thinner medicine, always ask your healthcare provider if NSAIDs are safe foryou. Always read the medicine label and follow directions. ?? Nasal steroid sprays may help decrease inflammation in your nose and sinuses. ?? Decongestants help reduce swelling and drain mucus in the nose and sinuses. They may help you breathe easier. ?? Antihistamines help dry mucus in the nose and relieve sneezing. ?? Antibiotics help treat or prevent a bacterial infection. How can I manage my symptoms? ?? Rinse your sinuses. Use a sinus rinse device to rinse your nasal passages with a saline (salt water) solution or distilled water. Do not use tap water. This will help thin the mucus in your nose and rinse away pollen and dirt. It will also help reduce swelling so you can breathe normally. Ask your healthcare provider how often to do this. ?? Breathe in steam. Heat a bowl of water until you see steam. Lean over the bowl and make a tent over your head with a large towel. Breathe deeply for about 20 minutes. Be careful not to get too close to the steam or burn yourself. Do this 3 times a day. You can also breathe deeply when you take ahot shower. ?? Sleep with your head elevated. Place an extra pillow under your head before you go to sleep to help your sinuses drain. ?? Drink liquids as directed. Ask your healthcare provider how much liquid to drink each day and which liquids are best for you. Liquids will thin the mucus in your nose and help it drain. Avoid drinks that contain alcohol or caffeine. ?? Do not smoke, and avoid secondhand smoke. Nicotine and other chemicals in cigarettes and cigars can make your symptoms worse. Ask your healthcare provider for information if you currently smoke and need help to quit. E-cigarettes or smokeless tobacco still contain nicotine. Talk to your healthcare provider before you use these products. How can I help prevent the spread of germs that cause sinusitis? Wash your hands often with soap and water. Wash your hands after you use the bathroom, change a child's diaper, or sneeze. Wash your hands before you prepare or eat food. When should I seek immediate care? ?? Your eye and eyelid are red, swollen, and painful. ?? You cannot open your eye. ?? You have vision changes, such as double vision. ?? Your eyeball bulges out or you cannot move your eye. ?? You are more sleepy than normal, or you notice changes in your ability to think, move, or talk. ?? You have a stiff neck, a fever, or a bad headache. ?? You have swelling of your forehead or scalp. When should I contact my healthcare provider? ?? Your symptoms do not improve after 3 days. ?? Your symptoms do not go away after 10 days. ?? You have nausea and are vomiting. ?? Your nose is bleeding. ?? You have questions or concerns about your condition or care. CARE AGREEMENT: You have the right to help plan your care. Learn about your health condition and how it may be treated. Discuss treatment options with your caregivers to decide what care you want to receive. You always have the right to refuse treatment. The above information is an band aid machine operator only. It is not intended as medical advice for individual conditions or treatments. Talk to your doctor, nurse or pharmacist before following any medical regimen to see if it is safe and effective for you. ?? Copyright [employer] 2018 Information is for End User's use only and may not be sold, redistributed or otherwise used for commercial purposes. All illustrations and images included in CareNotes?? are the copyrighted property of [employer], [employer]. or [employer] documented in this encounter Progress Notes * Nikolai Harris APRN-CNP - 01/24/2018 3:03 PM CDT [facility] Chief Complaint Patient presents with ??? Cough ??? Congestion ??? Sinusitis SUBJECTIVE: General The history is provided by the patient (62 y/0 f). This is a new problem. The current episode started more than 1 week ago. The problem occurs constantly. The problem has been gradually worsening. The pain is moderate. Body Location: congestion, cough, sinus pressure/pain,Associated symptoms include headaches and shortness of breath. The symptoms are aggravated by coughing. The symptoms are relieved by Tylenol (claritin, flonase ). The treatment provided mild relief. Past Medical History: Diagnosis Date ??? Arthritis ??? Atrial fibrillation ??? GERD (gastroesophageal reflux disease) ??? Hypercholesteremia ??? Hypertension ??? Sleep apnea Current Outpatient Prescriptions on File Prior to Visit Medication Sig Dispense Refill ??? traMADol (ULTRAM) 50 MG tablet Take 50 mg by mouth every 6 hours as needed. ??? omeprazole (PRILOSEC) 40 MG capsule Take 40 mg by mouth daily before breakfast. ??? estradiol (ESTRACE) 1 MG tablet Take 1 mg by mouth once daily. ??? meclizine (ANTIVERT) 25 MG tablet Take 25 mg by mouth 3 times daily as needed. ??? atorvastatin (LIPITOR) 40 MG tablet Take 40 mg by mouth at bedtime. ??? magnesium oxide (MAG-OX) 400 MG tablet Take 400 mg by mouth once daily. ??? furosemide (LASIX) 20 MG tablet Take 20 mg by mouth 2 times daily as needed. ??? rivaroxaban (XARELTO) 20 MG tablet Take 20 mg by mouth once daily. ??? sotalol (BETAPACE) 80 MG tablet Take 40 mg by mouth 2 times daily. ??? celecoxib (CELEBREX) 200 MG capsule Take 200 mg by mouth 2 times daily. No current facility-administered medications on file prior to visit. Past Surgical History: Procedure Laterality Date ??? ABLATION FOR ATRIAL FIBRILLATION/FLUTTER 2010 ??? Cholecystectomy ??? FOOT ARTHROTOMY ??? Hysterectomy Social History Social History ??? Marital status: Spouse name: N/A ??? Number of children: N/A ??? Years of education: N/A Occupational History ??? Not on file. Social History Main Topics ??? Smoking status: Never Smoker ??? Smokeless tobacco: Never Used ??? Alcohol use Not on file ??? Drug use: Not on file ??? Sexual activity: Not on file Other Topics Concern ??? Not on file Social History Narrative No family history on file. Current Outpatient Prescriptions Medication Sig Dispense Refill ??? amoxicillin-clavulanate (AUGMENTIN) 875-125 MG tablet Take 1 tablet by mouth 2 times daily withmorning and evening meal for 10 days 20 tablet 0 ??? albuterol HFA (VENTOLIN HFA) 108 (90 BASE) MCG/ACT inhaler Inhale 2 puffs by mouth every 6 hours as needed 1 Inhaler 5 ??? predniSONE (DELTASONE) 20 MG tablet Take 1 tablet by mouth 2 times daily 14 tablet 0 ??? traMADol (ULTRAM) 50 MG tablet Take 50 mg by mouth every 6 hours as needed. ??? omeprazole (PRILOSEC) 40 MG capsule Take 40 mg by mouth daily before breakfast. ??? estradiol (ESTRACE) 1 MG tablet Take 1 mg by mouth once daily. ??? meclizine (ANTIVERT) 25 MG tablet Take 25 mg by mouth 3 times daily as needed. ??? atorvastatin (LIPITOR) 40 MG tablet Take 40 mg by mouth at bedtime. ??? magnesium oxide (MAG-OX) 400 MG tablet Take 400 mg by mouth once daily. ??? furosemide (LASIX) 20 MG tablet Take 20 mg by mouth 2 times daily as needed. ??? rivaroxaban (XARELTO) 20 MG tablet Take 20 mg by mouth once daily. ??? sotalol (BETAPACE) 80 MG tablet Take 40 mg by mouth 2 times daily. ??? celecoxib (CELEBREX) 200 MG capsule Take 200 mg by mouth 2 times daily. No current facility-administered medications for this visit. Allergies Allergen Reactions ??? Flecainide Palpitations and Other REVIEW OF SYSTEMS: Review of Systems Constitutional: Positive for chills, fever and malaise/fatigue. HENT: Positive for congestion, ear pain, sinus pain and sore throat. Respiratory: Positive for cough, shortness of breath and wheezing. Negative for hemoptysis and sputum production. Gastrointestinal: Negative. Musculoskeletal: Negative. Neurological: Positive for headaches. OBJECTIVE: General appearance: alert, well appearing, and in no distress. BP 120/80 (BP SITE: LEFT ARM, BP POSITION: SITTING, BP CUFF SIZE: 12) Pulse 82 Temp 98.7 ??F (37.1 ??C) (Oral) Ht 1.715 m (5' 7.5 ) Wt 99.8 kg (220 lb) SpO2 98% BMI 33.95 kg/m2 Physical Exam Constitutional: She is well-developed, well-nourished, and in no distress. HENT: Nares and posterior buccal mucosa erythema, edema, Tender sinuses with palpation Neck: Normal range of motion. Neck supple. Cardiovascular: Normal rate and regular rhythm. Pulmonary/Chest: Effort normal. She has wheezes. Lymphadenopathy: She has no cervical adenopathy. ASSESSMENT: No results found for this visit on 01/24/18. Encounter Diagnoses Name Primary? Acute sinusitis, recurrence not specified, unspecified location Yes ??? Acute bronchitis, unspecified organism PLAN: Orders Placed This Encounter ??? amoxicillin-clavulanate (AUGMENTIN) 875-125 MG tablet Sig: Take 1 tablet by mouth 2 times daily with morning and evening meal for 10 days Dispense: 20 tablet Refill: 0 ??? albuterol HFA (VENTOLIN HFA) 108 (90 BASE) MCG/ACT inhaler Sig: Inhale 2 puffs by mouth every 6 hours as needed Dispense: 1 Inhaler Refill: 5 ??? predniSONE (DELTASONE) 20 MG tablet Sig: Take 1 tablet by mouth 2 times daily Dispense: 14 tablet Refill: 0 Pt plans to speak with the pharmacist and heel cover splitter if the albuterol can be taken while on the Betapace; pt stated no plans to use albuterol until cleared with this issue. Handout given. documented in this encounter Miscellaneous Notes * Addendum Note - Nikolai Harris APRN-CNP - 01/24/2018 4:27 PM CDTAddended by: NIKOLAI HARRIS on: 01/24/2018 04:27 PM Modules accepted: Orders * Addendum Note - Nikolai Harris APRN-CNP - 01/24/2018 4:23 PM CDTAddended by: NIKOLAI HARRIS on: 01/24/2018 04:23 PM Modules accepted: Orders documented in this encounter Plan of Treatment Upcoming Encounters Date Type Department Care Team (Late st Contact Info) Description 08/13/2024 10:00 AM CDT Office Visit [facility]mology [address], [place] [phone] Hemalatha Landers M, OD [address] [facility] [place] [phone] documented as of this encounter Visit Diagnoses Diagnosis Acute sinusitis, recurrence not specified, unspecified location- Primary Acute bronchitis, unspecified organism documented in this encounter
--- OUTSIDE RECORDS SUMMARY | 2024-04-04 19:40 | XMS_ITS | Encounter Summary ---
Author Organization [facility] Health Address [address] [facility] [place] [address] Care Team Providers Care Bindery Leadperson Name Role Phone Unavailable Primary Care Provider Unavailabl e Reason for Visit * Reason Comments Follow-up Histoplasmosis OS-Hi gh Myopia OU-Amblyopia OS Encounter Details Date Type Department Care Team (Late st Contact Info) Description 04/06/2018 9:45 AM CADMIUM LIQUOR MAKER Office Visit [facility] [address] [place] [address] [place] [address] [facility] [address] [place] [phone] Histoplasmosis (Primary Dx); 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 Follow-up Histoplasmosis OS-High Myopia OU-Amblyopia OS Brenna Chatterjee is a 63 y.o. female Pt feels there has been no changes with vision OU since last visit 04-06-17. Pt wears CL OU. Pt didnot wear them today. Pt reads well with her CL. Pt drives well. No pain, floaters or flashes. Gtts: none The following was also reviewed and updated: Current Outpatient Prescriptions Medication Sig Dispense Refill ??? apixaban (ELIQUIS) 5 MG tablet Take 5 mg by mouth 2 times daily ??? solifenacin (VESICARE) 10 MG tablet Take 10 mg by mouth once daily ??? lisinopril (PRINIVIL; ZESTRIL) 10 MG tablet Take 10 mg by mouth once daily ??? Multiple Vitamins-Minerals (PRESERVISION AREDS PO) Take by mouth 2 times daily ??? ALPRAZolam (XANAX) 0.25 MG tablet Take 0.25 mg by mouth 3 times daily as needed for Anxiety ??? fludrocortisone (FLORINEF) 0.1 MG tablet Take 0.1 mg by mouth 3 times daily ??? fluticasone propionate (FLONASE) 50 MCG/ACT nasal spray [place] 2 sprays into each nostril once daily 1 bottles 0 ??? traMADol (ULTRAM) 50 MG tablet Take 50 mg by mouth 2 times daily ??? omeprazole [...] 20 mg by mouth once daily ??? sotalol [...] KNEE ARTHROPLASTY x3 Family History Problem Relation Age of Onset ??? Aneurysm, Aortic Mother [...] ??? Ulcerative Colitis Neg Hx Social History Substance Use Topics ??? Smoking status: Never Smoker ??? Smokeless tobacco: Never Used ??? Alcohol use No Base Eye Exam Visual Acuity (Snellen - Linear) Right Left Dist cc 20/25-3 20/50-1 Correction: Glasses Tonometry (Tonopen, 9:53 AM) Right Left Pressure 13 12 Neuro/Psych Oriented x3: Yes Mood/Affect: Normal Dilation Both eyes: 1.0% Mydriacyl, 2.5% Fer Synephrine @ 9:54 AM Slit Lamp and Fundus Exam External Exam Right Left External Normal Normal Slit Lamp Exam Right Left Lids/Lashes Normal Normal Conjunctiva/Sclera White and quiet White and quiet Cornea Clear Clear Anterior Chamber Deep and quiet Deep and quiet Iris Round, pharm dil Round, pharm dil Lens 1+ NSC 1+ NSC Vitreous Normal Normal Fundus Exam Right Left Disc Normal. Tilted. PPA. Normal. Tilted. PPA. C/D Ratio 0.2 0.2 Macula Normal Few punched out lesions Vessels Normal Normal Periphery Few punched out lesions Few punched out lesions Extended Ophthalmoscopy Report - OD: peripapillary atrophy, punched out chorioretinal lesions OS: peripapillary atrophy, punched out chorioretinal lesions ? OCT - OD: Normal foveal contour OS: Myopic contour ? Assessment/Plan ?Patient seen and examined with resident. I confirm history/exam and diagnostic testing with my revisions to both as above. ? Please see resident???s note for further details. ?? Brenna Chatterjee??is a 62 y.o.??female? # POHS - PPA, punched out lesions, no vitritis - No CNV - Stable vision - Observe ? # High myopia OU (OD -5; OS -8D) - Myopic macular degeneration OS - Continue Amsler and AREDS ? # Amblyopia OS - Vision fluctuates F/U 1 yr - dil OU/OCT Pt verbalizes understanding of the above assessment/plan, all questions were answered, and pt agrees to follow-up. Kenya Wells MD IUM LIQUOR MAKER * Nilam Rothman MD - 04/06/2018 10:31 AM CST Images from the original note were not included. HPI Chief Complaint Patient presents with ??? Follow-up Brenna Chatterjee is a 62 y.o. 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 She reports that her vision is about the same OU. She is wearing her glasses today vs her ctls. She denies pain and irritation OU. She is not using any eye drops. The following was also reviewed and updated: Current Outpatient Prescriptions Medication Sig Dispense Refill ??? Multiple Vitamins-Minerals (PRESERVISION AREDS 2 PO) Take 1 capsule by mouth 2 TIMES DAILY. ??? fludrocortisone (FLORINEF) 0.1 MG tablet ??? hydrOXYzine (VISTARIL) 50 MG capsule ??? lisinopril (PRINIVIL, ZESTRIL) 10 MG tablet ??? VESICARE 10 MG tablet ??? potassium chloride (K-DUR, KLOR-CON M20) 20 MEQ ??? ELIQUIS 5 MG Tab tablet Take 5 mg by mouth 2 TIMES DAILY. ??? traMADol (ULTRAM) 50 MG Oral tablet Take 50 mg by mouth 2 TIMES DAILY. ??? omeprazole (PRILOSEC) 40 MG Oral capsule Take 40 mg by mouth Daily. ??? estradiol (ESTRACE) 1 MG Oral tablet Take 1 mg by mouth Daily. ??? meclizine (ANTIVERT) 25 MG Oral tablet Take 25 mg by mouth 3 times daily as needed. ??? atorvastatin (LIPITOR) 40 MG Oral tablet Take 40 mg by mouth Daily. ??? Magnesium Oxide (MAG-OX 400 PO) Take by mouth. ??? furosemide (LASIX) 20 MG Oral tablet Take 20 mg by mouth Daily. ??? sotalol (BETAPACE) 80 MG Oral tablet Take 40 mg by mouth 2 TIMES DAILY. ??? celecoxib (CELEBREX) 200 MG Oral capsule Take 200 mg by mouth 2 TIMES DAILY. No current facility-administered medications for this visit. No Known Allergies Review of Systems Past Medical History: Diagnosis Date ??? Allergic ??? Arthritis ??? Histoplasmosis retinitis ??? History of Kinyarwanda measles ??? Hypertension ??? Joint disorder ??? Undiagnosed cardiac murmurs Past Surgical History: Procedure Laterality Date ??? HX HYSTERECTOMY ??? HX KNEE SURGERY Bilateral Laparoscopic ??? IA ABLATE HEART DYSRHYTHM FOCUS ??? IA CARDIOVASCULAR PROCEDURE UNLISTED Heart Ablation ??? IA FOOT/TOES SURGERY PROC UNLISTED Bilateral ??? IA GASTROPLASTY,OBESITY,VERT BAND Lap Band ??? IA LAP,CHOLECYSTECTOMY ??? IA REMOVAL OF KIDNEY STONE Family History Problem Relation Age of Onset ??? Amblyopia Neg Hx ??? Blindness Neg Hx ??? Brain Tumor Neg Hx ??? CVA Neg Hx ??? Cancer Neg Hx ??? Cataract Maternal Grandmother ??? Diabetes Neg Hx ??? Glaucoma Neg Hx ??? Heart Disease Neg Hx ??? Hypertension Mother Maternal Grandmother ??? Macular Degeneration Neg Hx ??? Retinal Detachment Neg Hx ??? Strabismus Neg Hx ??? Thyroid Disease Neg Hx Social History Substance Use Topics ??? Smoking status: Never Smoker ??? Smokeless tobacco: Never Used ??? Alcohol use No Base Eye Exam Visual Acuity (Snellen - Linear) Right Left Dist cc 20/30 +2 20/60 Tonometry (Tonopen, 10:15 AM) Right Left Pressure 18 18 Pupils Dark Light APD Right 4 3 None Left 4 3 None Visual Brock (Counting fingers) Left Right Result Full Full Extraocular Movement Right Left Result Full Full Dilation Both eyes: 1.0% Mydriacyl, 2.5% Fer Synephrine @ 10:15 AM Slit Lamp and Fundus Exam Slit Lamp Exam Right Left Lids/Lashes Normal Normal Conjunctiva/Sclera White and quiet White and quiet Cornea Clear Clear Anterior Chamber Deep and quiet Deep and quiet Iris Round, pharm dil Round, pharm dil Lens 1+ NSC 1+ NSC Vitreous Normal Normal Fundus Exam Right Left Disc Normal. Tilted. PPA. Normal. Tilted. PPA. C/D Ratio 0.2 0.2 Macula Normal Few punched out lesions, myopic changes Vessels Normal Normal Periphery Few punched out lesions Few punched out lesions Extended Ophthalmoscopy Report - OD: peripapillary atrophy, punched out chorioretinal lesions OS: peripapillary atrophy, punched out chorioretinal lesions ?? OCT - OD: Normal foveal contour OS: Myopic contour ? Assessment/Plan ?? Brenna Chatterjee is a 62 y.o. female ?? # POHS - PPA, punched out lesions, no vitritis - No CNV on previous FA - STable vision - Observe ?? # High myopia OU (OD -5; OS -8D) - Myopic macular degeneration OS - Continue Amsler and AREDS ?? # Amblyopia OS - Vision fluctuates ?? Plan: - Follow up annually, sooner if problems IUM LIQUOR MAKER documented in this encounter Plan of Treatment Upcoming Encounters Date Type Department Care Team (Late st Contact Info) Description 08/13/2024 10:00 AM CDT Office Visit [facility] - Ophthalmology [address] [place] [phone] Hemalatha Landers, OD [address] 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
--- OUTSIDE RECORDS SUMMARY | 2024-04-04 19:40 | XMS_ITS | Encounter Summary ---
Author Organization [facility] Address [address] [place] [address] Care Team Providers Care International Flight Attendant Name Role Phone Unavailable Primary Care Provider Unavailabl e Reason for Visit * Reason Comments Congestion Ear Pain Cough Encounter Details Date Type Department Care Team ([facility] st Contact Info) Description 03/26/2018 2:20 PM CLEANER AND PREPARER Office Visit [facility] [address] [phone] Provider, [facility] Viral URI with cough (Primary Dx); Essential hypertension; History of atrial fibrillation Social History Tobacco Use Types Packs/Day Years [...] Sign Reading Time Taken Comments Blood Pressure 118/58 03/26/2018 2:25 PM CLEANER AND PREPARER Pulse 74 03/26/2018 2:25 PM CLEANER AND PREPARER Temperature 36.4 ??C (97.5 ??F) 03/26/2018 2:25 PM CS T Respiratory Rate 16 03/26/2018 2:25 PM CLEANER AND PREPARER Oxygen Saturation 96% 03/26/2018 2:25 PM CLEANER AND PREPARER Inhaled Oxygen Concentration - - Weight 97.5 kg (215 lb) 03/26/2018 2:25 PM CLEANER AND PREPARER Height 170.2 cm (5' 7 ) 03/26/2018 2:25 PM CLEANER AND PREPARER Body Mass Index 33.67 03/26/2018 2:25 PM CLEANER AND PREPARER documented in this encounter Patient Instructions * Patient Instructions* Catrachita Neville, AURE-ARTISTS' MODEL - 03/26/2018 2:56 PM CLEANER AND PREPARER Images from the original note were not included. You have been diagnosed with a viral [...] your mouth when coughing are also important. -If you begin to run a fever or if symptoms worsen, such as difficulty breathing or shortness of breath, seek medial attention as soon as possible. Honey can be used to help with cough. The honey (2.5 to 5 ml [0.5 to 1 teaspoon]) can be given straight or diluted in liquid (eg, tea, juice) Humidifier may be helpful especially at night If you are not improving or worsening [...] threatening symptoms GO TO THE ER IMMEDIATELY. Upper Respiratory Infection WHAT YOU NEED TO KNOW: What is an upper respiratory infection? An upper respiratory infection is also called a common cold. It can affect your nose, throat, ears, and sinuses. What causes a cold? The common cold is caused by a virus. There are many different cold viruses, and each is contagious. This means the virus can be easily spread to another person when the sick person coughs or sneezes. The virus can also be spread if you touch something that a person with a cold has touched. You are more likely to get a cold in the winter. Your risk of getting a cold may be increased if you smoke cigarettes or have allergies, such as hay fever. What are the signs and symptoms of a cold? Cold symptoms are usually worst for the first 3 to 5 days. You may have any of the following: ?? Runny or stuffy nose ?? Sneezing and coughing ?? Sore throat or hoarseness ?? Red, watery, and sore eyes ?? Fatigue ?? Chills and fever ?? Headache, body aches, or sore muscles How is a cold treated? There is no cure for the common cold. Colds are caused by viruses and do notget better with antibiotics. Most people get better in 7 to 14 days. You may continue to cough for 2 to 3 weeks. The following may help decrease your symptoms: ?? Decongestants help reduce nasal congestion and help you breathe more easily. If you take decongestant pills, they may make you feel restless or cause problems with your sleep. Do not use decongestant sprays for [...] milligrams) total of acetaminophen in one day. How can I manage my cold? ?? Rest as much as possible. Slowly [...] sore throat. Gargle with warm salt water. This helps your sore throat feel better. Makesalt water by dissolving ?? teaspoon salt in 1 cup warm water. You may also suck on hard candy or throat lozenges. You may use a sore throat spray. ?? Use a humidifier or vaporizer. Use [...] healthcare provider before you use these products. What can I do to prevent the spread of the common cold? ?? Try to stay away from other people during the first 2 to 3 days of your cold when it is more easily spread. ?? Do not share food or drinks. ?? Do not share hand towels with household members. ?? Wash your hands often, especially after you blow your nose. Turn away from other people and cover your mouth and nose with a tissue when you sneeze or cough. When should I seek immediate care? ?? You have chest pain or trouble breathing. When should I contact my healthcare provider? ?? You have a fever over 102??F (39??C). ?? Your sore throat gets worse or you see white or yellow spots in your throat. ?? Your symptoms get worse after 3 to 5 days or your cold is not better in 14 days. ?? You have a rash anywhere on your skin. ?? You have large, tender lumps in your neck. ?? You have thick, green, or yellow drainage from your nose. ?? You cough up thick yellow, green, or bloody mucus. ?? You are vomiting for more than 24 hours and cannot keep fluids down. ?? You have a bad earache. ?? [...] refuse treatment. The above information is an multimedia educational specialist only. It is not intended as medical advice for individual conditions or treatments. Talk to your doctor, nurse or pharmacist before following any medical regimen to see if it is safe and effective for you. ?? Copyright [employer] 2018 Information is for End User's use only and may not be sold, redistributed or otherwise used for commercial purposes. All illustrations and images included in CareNotes?? are the copyrighted property of [employer], [employer]. or [employer] NER AND PREPARER documented in this encounter Progress Notes * Catrachita Neville APRN-CNP - 03/26/2018 2:48 PM CST Subjective: Brenna Chatterjee is a 63 y.o. female who presents for evaluation: Chief Complaint Patient presents with ??? Congestion ??? Ear Pain ??? Cough Primary Care Physician is Cameron Freed DO. Symptoms include green nasal/postnasal drainage. Pt also reports sinus congestion/pressure, cough with mucus phlegm causing her not to sleep well, headaches, bilateral ear ache rating 6-7/10 with clogged sensation, and body aches. Pt denies any sore throat, fever, chills, sweats, dental pain, drainage from ears, SOB, or wheezing. Pt reports exposure to sick contacts at school. Pt has history of A-Fib and is suppose to have outpatient surgery tomorrow to replace the battery in her heart monitor. Onset of symptoms was 2 days ago, gradually worsening since that time. She is drinking plenty of fluids. Evaluation to date: none. Treatment to date: Walfed Allergies Allergen Reactions ??? Flecainide Palpitations and Other Outpatient Prescriptions Marked as Taking for the 03/26/18 encounter (Office Visit) with Provider, Sweta [facility] Medication Sig ??? apixaban (ELIQUIS) 5 MG tablet Take [...] fluticasone propionate (FLONASE) 50 MCG/ACT nasal spray [place] 2 sprays into each nostril once daily ??? traMADol (ULTRAM) 50 MG tablet Take [...] 200 mg by mouth 2 times daily. Past Medical History: Diagnosis Date ??? Arthritis ??? Atrial fibrillation ??? Diverticulitis ??? Edema ??? GERD (gastroesophageal reflux disease) ??? Hypercholesteremia ??? Hypertension ??? IBS (irritable bowel syndrome) ??? Sleep apnea ??? Stomach ulcer ??? Vertigo Social History Social History ??? Marital status: Spouse name: N/A ??? Number of children: N/A ??? Years of education: N/A Occupational History ??? Not on file. Social History Main Topics ??? Smoking status: Never Smoker ??? Smokeless tobacco: Never Used ??? Alcohol use No ??? Drug use: No ??? Sexual activity: Yes Partners: Male Other Topics Concern ??? Not on file Social History Narrative Medications reviewed. Review of Systems Pertinent items are noted in HPI Constitutional: Negative Eyes: Negative Ears, nose, mouth, and throat: Positive for green nasal/postnasal drainage, sinus congestion/pressure, and bilateral ear ache rating 6-7/10 with clogged sensation. Respiratory: Positive for acute cough with mucus phlegm causing her not to sleep well, Cardiovascular: Negative Gastrointestinal: Negative Genitourinary:Negative Skin: Negative Musculoskeletal:Positive for body aches Neurological: Positive for headaches Objective: BP 118/58 (BP SITE: LEFT ARM, BP POSITION: SITTING, BP CUFF SIZE: 11) Pulse 74 Temp 97.5 ??F (36.4 ??C) (Oral) Resp 16 Ht 1.702 m (5' 7 ) Wt 97.5 kg (215 lb) SpO2 96% BMI 33.67 kg/m2 Skin: Physical Exam Exam General appearance: alert, cooperative, no distress, oriented to person, place, and time, wellappearing Head: normocephalic, without trauma Eyes: sclera and conjunctiva clear, EOMI and PERRLA, lids normal Ears: canals clear, tympanic membranes normal, hearing intact to voice Nose: nares open; no septal deviation is noted, no maxillary, frontal, or ethmoid tenderness, mucosa erythematous and swollen, clear rhinorrhea noted, no facial edema Throat: lips, mucosa, and tongue normal; teeth and gums normal, mild oropharyngeal erythema, no tonsillar hypertrophy, no exudates present, uvula midline, clear postnasal drainage noted Neck: range of motion is intact, no masses Nodes: no cervical adenopathy Lungs: breath sounds normal and symmetric; no rales or wheezes, cough noted during exam Heart: regular rhythm, normal S1 and S2, without murmurs, gallops or rubs Skin: no rashes or other abnormalities are noted Neurologic: mental status normal; alert and oriented X 3 Assessment: . Encounter Diagnoses Name Primary? Viral URI with cough Yes ??? Essential hypertension ??? History of atrial fibrillation Plan: Discussed the importance of avoiding unnecessary abx therapy. Suggested symptomatic OTC remedies. Nasal steroids per orders. RTC prn. Pt to stop taking Walfed due to history of A-Fib Pt to continue on all medications especially blood pressure medications as previously prescribed Discussed and offered rapid strep test and pt declines Discussed and offered Tessalon and pt declines due to it not working for her. Pt to call surgery center and notify of URI and see if they would like to proceed tomorrow with surgery. You have been diagnosed with a viral [...] your symptoms until your symptoms resolve. -Tylenol for aches, pains. Take per package directions [...] your mouth when coughing are also important. -If you begin to run a fever or if symptoms worsen, such as difficulty breathing or shortness of breath, seek medial attention as soon as possible. Honey can be used to help with cough. The honey (2.5 to 5 ml [0.5 to 1 teaspoon]) can be given straight or diluted in liquid (eg, tea, juice) Humidifier may be helpful especially at night If you are not improving or worsening in the next 5-7 days you must RETURN to the clinic, go to your PCP, or Urgent Care/ER to be SEEN and reevaluated. No further prescriptions or refills will be given by phone without another evaluation. You can take Coricidin as needed (per package directions). Avoid other decongestants due to the risk of increasing your blood pressure. Monitor blood pressure at least 2-3 times per week during illness, call your Primary physician or go to the ER if blood pressure is greater than 160/90 If you develop a high fever 103+, neck stiffness, trouble breathing, chest pain, or other life threatening symptoms GO TO THE ER IMMEDIATELY. Continue to follow up with Cameron Freed, DO as directed. After Visit Summary reviewed with patient. The patient indicates understanding of these issues and agrees with the plan. Patient discharged to Home .HENNY Boogie 03/26/2018 3:37 PM Orders Placed This Encounter ??? fluticasone propionate (FLONASE) 50 MCG/ACT nasal spray Sig: [place] 2 sprays into each nostril once daily Dispense: 1 bottles Refill: 0 No results found for this or any previous visit (from the past 24 hour(s)). NER AND PREPARER documented in this encounter Plan of Treatment Upcoming Encounters Date Type Department Care Team (Late st Contact Info) Description 08/13/2024 10:00 AM CDT Office Visit [facility] - Ophthalmology [address] [place] [phone] Hemalatha Landers, SALVADOR [address] [place] [address] [place] [phone] documented as of this encounter Visit Diagnoses Diagnosis Viral URI with cough- Primary Acute upper respiratory infections of unspecified site Essential hypertension History of atrial fibrillation Personal history of other diseases of circulatory system documented in this encounter
--- OUTSIDE RECORDS SUMMARY | 2024-04-04 19:40 | XMS_ITS | Encounter Summary ---
Author Organization [facility] Address [address] [place] [address] Care Team Providers Care Social Work Manager Name Role Phone Unavailable Primary Care Provider Unavailabl e Reason for Visit * Reason Comments Congestion Fatigue Headache Encounter Details Date Type Department Care Team (Late st Contact Info) Description 03/23/2019 11:20 AM BILLET HEADER Office Visit [facility] AT [address] [phone] Provider, [facility] Anita Adjuntas Acute nasopharyngitis (common cold) (Primary Dx) Social History Tobacco Use Types [...] Sign Reading Time Taken Comments Blood Pressure 132/82 03/23/2019 11:05 AM BILLET HEADER Pulse 82 03/23/2019 11:05 AM BILLET HEADER Temperature 37.1 ??C (98.8 ??F) 03/23/2019 11:[address] Respiratory Rate 16 03/23/2019 11:05 AM BILLET HEADER Oxygen Saturation 94% 03/23/2019 11:05 AM BILLET HEADER Inhaled Oxygen Concentration - - Weight 98 kg (216 lb) 03/23/2019 11:05 AM BILLET HEADER Height 170.2 cm (5' 7 ) 03/23/2019 11:05 AM BILLET HEADER Body Mass Index 33.83 03/23/2019 11:05 AM BILLET HEADER documented in this encounter Patient Instructions * Patient Instructions* Miranda Melendez, DENTAL INTERNSHIP-SECURITY ASSURANCE SPECIALIST - 03/23/2019 11:29 AM BILLET HEADER Patient Education Cold Symptoms HOSPITALITY INTERNSHIP: Cold symptoms include sneezing, dry throat, a stuffy nose, headache, watery eyes, and a cough. Yourcough may be dry, or you may cough up mucus. You may also have muscle aches, joint pain, and tiredness. Rarely, you may have a fever. Cold symptoms occur from inflammation in your upper respiratory system caused by a virus. Most colds go away without treatment. Seek care immediately if: ?? You have increased tiredness and weakness. ?? You are unable to eat. ?? Your heart is beating much faster than usual for you. ?? You see white spots in the back of your throat and your neck is swollen and sore to the touch. ?? You see pinpoint or larger reddish-purple dots on your skin. Contact your healthcare provider if: ?? You have a fever higher than 102??F (38.9??C). ?? You have new or worsening shortness of breath. ?? You have thick nasal drainage for more than 2 days. ?? Your symptoms do not improve or get worse within 5 days. ?? You have questions or concerns about your condition or care. Treatment for cold symptoms may include NSAIDS to decrease muscle aches and fever. Cold medicines may also be given to decrease coughing, nasal stuffiness, sneezing, and a runny nose. Manage your cold symptoms: The following may help relieve cold symptoms, such as a dry throat and congestion: ?? Gargle with mouthwash or warm salt water as directed. ?? Suck on throat lozenges or hard candy. ?? Use a cold or warm vaporizer or humidifier to ease your breathing. ?? Rest for at least 2 days and then as needed to decrease tiredness and weakness. ?? Use petroleum based jelly around your nostrils to decrease irritation from blowing your nose. ?? Drink plenty of liquids. Liquids will help thin and loosen thick mucus so you can cough it up. Liquids will also keep you hydrated. Ask your healthcare provider which liquids are best for you and how much to drink each day. Prevent the spread of germs by washing your hands often. You can spread your cold germs to others for at least 3 days after your symptoms start. Do not share items, such as eating utensils. Cover your nose and mouth when you cough or sneeze using the crook of your elbow instead of your hands. Throwused tissues in the garbage. Do not smoke: Smoking may worsen your symptoms and increase the length of time you feel sick. Talk with your healthcare provider if you need help to stop smoking. Follow up with your healthcare provider as directed: Write down your questions so you remember to ask them during your visits. ?? Copyright [employer] 2019 Information is for End User's use only and may not be sold, redistributed or otherwise used for commercial purposes. All illustrations and images included in CareNotes?? are the copyrighted property of [employer]. or [employer] The above information is an unpaid intern only. It is not intended as medical advice for individual conditions or treatments. Talk to your doctor, nurse or pharmacist before following any medical regimen to see if it is safe and effective for you. ET HEADER documented in this encounter Progress Notes * Miranda Melendez APRN-CNP - 03/23/2019 11:23 AM CST [facility] Brenna Chatterjee is a 64 year old female who presents for evaluation: Chief Complaint Patient presents with ??? Congestion ??? Fatigue ??? Headache Primary Care Physician is Cameron Freed DO. SUBJECTIVE: General The history is provided by the patient. This is a new problem. The current episode started more than 2 days ago. The pain is mild. Body Location: throat.Associated symptoms include headaches. Pertinent negatives include no chest pain, no abdominal pain and no shortness of breath. Associated symptoms comments: Congestion, cough, sinus pressure/drainage, fatigue. She has tried acetaminophen for thesymptoms. The treatment provided mild relief. Past Medical History: Diagnosis Date ??? Arthritis ??? Atrial fibrillation ??? Diverticulitis ??? Edema ??? GERD (gastroesophageal reflux disease) ??? Histoplasmosis ??? Hypercholesteremia ??? Hypertension ??? IBS (irritable bowel syndrome) ??? Sleep apnea ??? Stomach ulcer ??? Vertigo Current Outpatient Medications on File Prior to Visit Medication Sig Dispense Refill ??? ALPRAZolam (XANAX) [...] fluticasone propionate (FLONASE) 50 MCG/ACT nasal spray [place] 2 sprays into each nostril once daily [...] 2 times daily No current facility-administered medications on file prior [...] file Occupational History ??? Not on file Social Needs ??? Financial resource strain: Not on file ??? Food insecurity: Worry: Not on file Inability: Not on file ??? Transportation needs: Medical: Not on file Non-medical: Not on file Tobacco Use ??? Smoking status: Never Smoker ??? Smokeless tobacco: Never Used Substance and Sexual Activity ??? Alcohol use: No ??? Drug use: No ??? Sexual activity: Yes Partners: Male Lifestyle ??? Physical activity: Days per week: Not on file Minutes per session: Not on file ??? Stress: Not on file Relationships ??? Social connections: Talks on phone: Not on file Gets together: Not on file Attends samaritan service: Not on file Active member of club or organization: Not on file Attends meetings of clubs or organizations: Not on file Relationship status: Not on file ??? Intimate partner violence: Fear of current or ex partner: Not on file Emotionally abused: Not on file Physically abused: Not on file Forced sexual activity: Not on file Other Topics Concern ??? Special Diet Not Asked Social History Narrative ??? Not on file Family History Problem Relation Age of Onset [...] Neg Hx ??? Ulcerative Colitis Neg Hx Current Outpatient Medications Medication Sig Dispense Refill [...] fluticasone propionate (FLONASE) 50 MCG/ACT nasal spray [place] 2 sprays into each nostril once daily [...] SYSTEMS: Review of Systems Constitutional: Positive for malaise/fatigue. Negative for chills and fever. HENT: Positive for congestion. Negative for ear pain (+pressure), hearing loss, sinus pain and sorethroat. Eyes: Negative for discharge and redness. Respiratory: Positive for cough and sputum production. Negative for shortness of breath, wheezing and stridor. Cardiovascular: Negative for chest pain. Gastrointestinal: Negative for abdominal pain, nausea and vomiting. Neurological: Positive for headaches. Negative for dizziness. OBJECTIVE: General appearance: alert, well appearing, and in no distress. BP 132/82 (BP SITE: LEFT ARM, BP POSITION: SITTING, BP CUFF SIZE: 11) Pulse 82 Temp 98.8 ??F (37.1 ??C) (Oral) Resp 16 Ht 1.702 m (5' 7 ) Wt 98 kg (216 lb) SpO2 94% BMI 33.83 kg/m2 Physical Exam Constitutional: She is oriented to person, place, and time and well-developed, well-nourished, and in no distress. HENT: Right Ear: Hearing, tympanic membrane, external ear and ear canal normal. Left Ear: Hearing, tympanic membrane, external ear and ear canal normal. Nose: Mucosal edema and rhinorrhea present. Right sinus exhibits no maxillary sinus tenderness and no frontal sinus tenderness. Left sinus exhibits no maxillary sinus tenderness and no frontal sinus tenderness. Mouth/Throat: Uvula is midline and mucous membranes are normal. Posterior oropharyngeal erythema present. No oropharyngeal exudate or posterior oropharyngeal edema. Eyes: Pupils are equal, round, and reactive to light. Conjunctivae, EOM and lids are normal. Right eye exhibits no discharge. Left eye exhibits no discharge. Cardiovascular: Normal rate, regular rhythm and normal heart sounds. Pulmonary/Chest: Effort normal and breath sounds normal. She has no wheezes. She has no rales. Lymphadenopathy: Head (right side): No tonsillar adenopathy present. Head (left side): No tonsillar adenopathy present. She has no cervical adenopathy. Neurological: She is alert and oriented to person, place, and time. Skin: Skin is warm and dry. Psychiatric: Affect and judgment normal. Vitals reviewed. No results found for this or any previous visit (from the past 24 hour(s)). ASSESSMENT: Encounter Diagnosis Name Primary? Acute nasopharyngitis (common cold) Yes PLAN: You have been diagnosed with a viral infection. -Viral infections do not improve with antibiotics. -Viral symptoms can linger from 7-14 days -The color of discharge does not always reflect the need for an antibiotic, even during a viral illness it is normal for drainage to change from yellow to green at times. -Please refer to the CDC Get Smart (cdc.gov/getsmart) campaign for further information. ?? Increase fluid intake Flonase or Nasacort nasal spray - per package directions Tylenol for fever/discomfort - per package instructions. Honey is a natural tussive for cough. If condition worsens or does not improve in 7-10 days, see PCP or return to clinic. No orders of the defined types were placed in this encounter. ET HEADER documented in this encounter Plan of Treatment Upcoming Encounters Date Type Department Care Team (Late st Contact Info) Description 08/13/2024 10:00 AM CDT Office Visit [facility] - Ophthalmology [address] [place] [phone] Hemalatha Landers, OD [address] [facility] [place] [phone] documented as of this encounter Visit Diagnoses Diagnosis Acute nasopharyngitis (common cold)- Primary documented in this encounter
--- OUTSIDE RECORDS SUMMARY | 2024-04-04 19:40 | XMS_ITS | Encounter Summary ---
Author Organization [facility] Address [address] [place] [address] Care Team Providers Care Graffiti Cleaner Name Role Phone Unavailable Primary Care Provider Unavailabl e Reason for Visit * Reason Onset Date Comments Follow-up 01/26/2018 Encounter Details Date Type Department Care Team (Late Contact Info) Description 01/26/2018 Telephone [facility] AT [address] [phone] Bianca Baeza Follow-up Social History Tobacco Use Types Packs/Day [...] Office Visit [facility] - Ophthalmology [address] [place] [phone] Hemalatha Landers M, OD [address] [place] [address] [place] [phone] documented as of this encounter Visit Diagnoses Not on filedocumented in this encounter
--- OUTSIDE RECORDS SUMMARY | 2024-04-04 19:40 | XMS_ITS | Encounter Summary ---
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 Temple, next available. Call [phone] and ask for the eye resident mission assessment specialist with any changes anahi, Use preservative free artificial tears as needed [...] off, you must call the office immediately: [phone]. After hours call [phone] and ask for Eye resident Information Lead. TRONICS HARDWARE DESIGN ENGINEER documented in this encounter Progress Notes * Mariana Figueroa, OD - 04/05/2019 11:55 AM CST Brenna Chatterjee is a 64 year old female who is being seen at the request of Dr. Woodson for Chief Complaint Patient presents with ??? Blurred Vision Brenna Chatterjee is a 64 year old female reports for annual exam. Patient wears GP contact lenses and notices that her computer screen has became slightly blurry over the last year. The lenses are comfortable and patient is compliant with cleaning. Patient previously seen by Dr. 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 Retinal appearance stable at last retina appointment. ggts ATs rarely Allergies: is allergic to flecainide. EXAM: Base Eye Exam Visual Acuity (Snellen - Linear) Right Left Dist cc 20/20 - 20/200 Dist ph cc 20/70 Near cc 20/30 Correction: Contacts Tonometry (Applanation, 2:32 PM) Right Left Pressure 20 20 Pupils Pupils Shape React APD Right PERRL Round Brisk None Left PERRL Round Brisk None Visual Brock (Counting fingers) Left Right Full Full Extraocular Movement Right Left Full Full Neuro/Psych Oriented x3: Yes Mood/Affect: Normal Dilation Both eyes: 1.0% Mydriacyl @ 2:32 PM Slit Lamp and Fundus Exam External [...] Vessels Normal Normal Periphery Few punched out lesions, neg h/t/d Few punched out lesions, neg h/t/d Refraction Manifest Refraction Sphere Cylinder [place] Dist VA Add Right -4.75 -1.50 070 20/30+ +2.50 Left -7.50 -1.75 073 20/50 +2.50 Contact Lens Exam Current Contact Lens Rx (Dispensed) Brand Base Curve Diameter Sphere Lens Dist VA Centration Movement Right Accucon Blue 7.90 9.5 -5.00 RGP 20/20 Superior Tight Left Fluoroperm 60 7.90 9.5 -5.00 RGP 20/200 Well-centered - good lid attachment Adequate Contact History Replacement Frequency: Yearly Care Regimen: Adequate Solutions Used: [place] Advance Lens Age: 3 years Final Contact Lens Rx Brand Base Curve Diameter Sphere Lens Right Fluoroperm 60 7.98 9.5 -4.50 RGP Left Fluoroperm 60 7.90 9.5 -5.50 RGP IMPRESSION: 1. 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 Wells previously 2. 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 Myopia with presbyopia - right RGP appears a little tight - left RGP fits well (near), patient having trouble seeing computer RECOMMENDATION: 1. Discussed findings with patient. Establish care with Dr. Temple (has appointment scheduled for 04/25/18) 2. Establish care with Dr. Temple. Continue with amsler grid and call with changes. 3. Order new right lens with flatter base curve. Order new left lens set for intermediate distance vision. Follow-up in 2 weeks. Time was spent answering questions and patient voiced understanding/in agreement with plan. Given AVS. [] Patient seen and examined. Resident/Clinical Informatics Spec note reviewed and discussed. I confirm these findings other than where revisions were made. 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
--- OUTSIDE RECORDS SUMMARY | 2024-04-04 19:40 | XMS_ITS | Encounter Summary ---
Author Organization [facility] Address [address] [facility] [place] [address] Care Team Providers Care Geography Faculty Member Name Role Phone Unavailable Primary Care Provider Unavailabl e Reason for Visit * Reason Onset Date Comments Follow-up 03/28/2018 Encounter Details Date Type Department Care Team (Late Contact Info) Description 03/28/2018 Telephone [facility] [address] [place] [phone] Catrachita Neville W, TRANSPORTATION ATTENDANT-COMMERCIAL LOAN SPECIALIST [address] [place] [phone] Follow-up Social History Tobacco Use Types Packs/Day [...] Office Visit [facility] - [facility]mology [address] [place] [phone] Hemalatha Landers, OD [address] [facility] DEPT [place] [phone] documented as of this encounter Visit Diagnoses Not on filedocumented in this encounter
--- OUTSIDE RECORDS SUMMARY | 2024-04-04 19:40 | XMS_ITS | Encounter Summary ---
Author Organization [facility] Address [address] [place] [address] Care Team Providers Care Merchandise Associate Name Role Phone Unavailable Primary Care Provider Unavailabl e Reason for Visit * Auth/Cert - Closed Specialty Diagnoses / Procedures Referred By Contac t Referred To Contact Diagnoses CAD (coronary artery disease) cad Referral ID Status Reason Start Date Expiration Date Visits Re quested Visits Authorized [id number] Closed 1 1 Encounter Details Date Type Department Care Team (Latest Contact Info) Description 04/17/2013 9:19 AM DIESEL TRUCK DRIVER - 04/17/2013 2:15 PM DIESEL TRUCK DRIVER Hospital Encounter [facility] - Cardiac Precision Lens Technician [address] [place] [address] [place] [id number] [address] Cardiac Catheterization Discharge Disposition: Home or Self Care Social History Tobacco Use Types Packs/Day Years Used Date Smoking Tobacco: Never Alcohol Use Standard Drinks/Week Comments Not Asked 0 (1 standard drink = 0.6 oz pur e alcohol) Sex and Gender Information Value Date Recorded Sex Assigned at Not on file Gender Identity Not on file Sexual Orientation Not on file documented as of this encounter Last Filed Vital Signs Vital Sign Reading Time Taken Comments Blood Pressure 130/46 04/17/2013 2:00 PM DIESEL TRUCK DRIVER Pulse 66 04/17/2013 2:00 PM DIESEL TRUCK DRIVER Temperature 36.6 ??C (97.9 ??F) 04/17/2013 11:[address] Respiratory Rate 13 04/17/2013 2:00 PM DIESEL TRUCK DRIVER Oxygen Saturation 97% 04/17/2013 2:00 PM DIESEL TRUCK DRIVER Inhaled Oxygen Concentration - - Weight 99.8 kg (220 lb) 04/17/2013 9:50 AM DIESEL TRUCK DRIVER Height 170.2 cm (5' 7 ) 04/17/2013 9:50 AM DIESEL TRUCK DRIVER Body Mass Index 34.46 04/17/2013 9:50 AM DIESEL TRUCK DRIVER documented in this encounter Discharge Instructions * Discharge Instructions* Eri Lucia RN - 04/17/2013 1:32 PM DIESEL TRUCK DRIVER Procedural Sedation, Adult Medicine(s) were given today to help you feel comfortable and relaxed during tests and/or treatments. Like any medicines, these can cause unwanted but temporary effects. HOME CARE INSTRUCTIONS ?? Warning: The medicine(s) given today may cause temporary drowsiness, clumsiness or poor balance.Poor judgment can also result before the medicine(s) wear off. Someone should meet you and drive you home. Do not drive, operate machinery, use power or hand tools for the next 12 hours. ?? Do not make important decisions until improved. Avoid exercising, bicycling, swimming, climbing ladders, or working at heights for the remainder of the day. ?? You may temporarily feel sick, weak, or dizzy. This is expected. Vomiting may occur if you eat too soon. When you can drink without vomiting, try water, juice, or soup. Try solid foods if you feellittle or no nausea and continue to feel better. ?? If pain killers have been prescribed for you, ask your caregiver how soon it is safe to take them. ?? You should not drink alcohol, take sleeping pills, or medicines that cause drowsiness for at least 24 hours. ?? If you smoke, do not smoke alone. ?? Only take nufj-cas-vbfnxmj or prescription medicines for pain, discomfort, or fever as directed by your caregiver. SEEK MEDICAL CARE IF: ?? Breathing problems develop. ?? Your skin is pale or bluish in color. ?? Pain is getting worse and not helped by medication. ?? There is bleeding or swelling. ?? A temperature over 102?? F (38.9?? C) develops. ?? You are still sleepy or wobbly after 24 hours. Document Released: 04/20/2007 Document Re-Released: 09/20/2008 ExitCare?? Patient Information ??2010 ticckle. Do not lift more than 10 pounds for one week or as directed by your curb setter. Your dressing may be removed the morning after your procedure. You may recover the site with a bandage if you desire, however, it is not necessary. To prevent infection we recommend showering rather than bathing for one week to allow the site to heal. Daily for one week please observe the puncture site for the following and report to your doctor any Increased bruising or swelling Drainage from puncture site Pain that will not go away If you have any questions regarding your home medications/prescriptions, please contact your primary physician. Discharge Procedure Orders FOLLOW UP ..With Kenan Thakkar MD 4 weeks. PATIENT TO NOTIFY SKI MAKER WOOD IF... Order Specific Question Answer Comments for which symptoms... excessive bleeding at surgical site : fever over 101 degrees : numbness, tingling, or changes in color in any extremity : excessive redness or unusual drainage at surgical site or I.V. site : unrelieved pain and/or swelling occurs : unable to urinate in 6 - 8 hours : persistent nausea or vomiting : no bowel movement in 3 days NO TUB BATH Order Specific Question Answer Comments For how long? One week MAY SHOWER May shower next am. Please avoid smoking and second hand smoke. The following belongings have been returned to you: Clothing: Yes, With Patient: Shirt;Pants;Footwear;Undergarments Jewelry: Yes, With Patient: Watch Electronic Items: None Dentures/Retainers: None Visual Aids: Yes, Contact - Bilateral: With Patient Hearing Aids: None Equipment with Patient: None, Equipment At Home: Cane-Straight Home Medications: None Miscellaneous Items: None Monetary Items: None .WEIGHT MONITORING - If you have heart failure, weigh yourself every morning. Contact your physician if your weight increases by 3 pounds in 1 day OR 5 pounds in 1 week. WHAT TO DO IF SYMPTOMS WORSEN - Contact your physician if you have shortness of breath/difficulty breathing, or any swelling of your legs, ankles or feet. The discharge and medication instructions have been reviewed with me and my questions have been answered. I have received a copy of the discharge instructions. 04/17/2013 EL TRUCK DRIVER * Discharge Instructions* Document, Scanned - 04/20/2013 8:37 PM DIESEL TRUCK DRIVER EL TRUCK DRIVER documented in this encounter Medications at Time of Discharge Medication Sig Dispensed Refills Start Date End Date atorvastatin (LIPITOR) 40 MG tablet Take 80 mg by mouth at bedtime celecoxib (CELEBREX) 200 MG capsule Take 200 mg by mouth 2 times daily. estradiol (ESTRACE) 1 MG tablet Take 1 mg by mouth once daily. furosemide (LASIX) 20 MG tablet Take 20 mg by mouth once daily magnesium oxide (MAG-OX) 400 MG tablet Take 400 mg by mouth once daily. meclizine (ANTIVERT) 25 MG tablet Take 25 mg by mouth 3 times daily as needed. omeprazole (PRILOSEC) 40 MG capsule Take 40 mg by mouth daily before breakfast. sotalol (BETAPACE) 80 MG tablet Take 40 mg by mouth 2 times daily. traMADol (ULTRAM) 50 MG tablet Take 50 mg by mouth 2 times daily rivaroxaban (XARELTO) 20 MG tablet Take 20 mg by mouth once daily. 03/26/2018 documented as of this encounter H&P Notes * Document, Scanned - 04/20/2013 8:37 PM CST EL TRUCK DRIVER documented in this encounter Procedure Notes * Document, Scanned - 05/25/2013 8:22 PM CSTAssociated Order(s): CARDIAC PROCEDURE ORDER EL TRUCK DRIVER * Document, Scanned - 04/20/2013 8:37 PM CSTAssociated Order(s): CARDIAC PACER/DEFIB ORDER EL TRUCK DRIVER * Document, Scanned - 04/20/2013 8:37 PM CSTAssociated Order(s): CARDIAC PROCEDURE ORDER EL TRUCK DRIVER * Kenan Thakkar MD - 04/17/2013 12:56 PM CST Impanted a Medtronic loop recorder (Reveal) Full feport to follow EL TRUCK DRIVER * Kenan Thakkar MD - 04/17/2013 10:47 AM CSTAssociated Order(s): CARDIAC CATH CONSULT HEAD-UP TILT TABLE STUDY FINAL REPORT Brenna Chatterjee [id number] 1955 58 y.o. female Referring Physician:Dr. Thakkar History/Reason for Study: recurrent syncope Prescriptions prior to admission Medication Status Sig Dispense Refill ??? traMADol (ULTRAM) 50 MG tablet Active Take 50 mg by mouth every 6 hours as needed. ??? omeprazole (PRILOSEC) 40 MG capsule Active Take 40 mg by mouth daily before breakfast. ??? estradiol (ESTRACE) 1 MG tablet Active Take 1 mg by mouth once daily. ??? meclizine (ANTIVERT) 25 MG tablet Active Take 25 mg by mouth 3 times daily as needed. ??? atorvastatin (LIPITOR) 40 MG tablet Active Take 40 mg by mouth at bedtime. ??? magnesium oxide (MAG-OX) 400 MG tablet Active Take 400 mg by mouth once daily. ??? furosemide (LASIX) 20 MG tablet Active Take 20 mg by mouth 2 times daily as needed. ??? rivaroxaban (XARELTO) 20 MG tablet Active Take 20 mg by mouth once daily. ??? sotalol (BETAPACE) 80 MG tablet Active Take 40 mg by mouth 2 times daily. ??? celecoxib (CELEBREX) 200 MG capsule Active Take 200 mg by mouth 2 times daily. Procedure: The patient was placed on the tilt table and connected to monitoring devises. A 20 gaugecatheter was inserted. Blood pressure, heart rate and [...] hour. The patient was stable at the conclusion of the study. Impressions: negative tilt table test Recommendations: implant a loop recorder Thank you, Kenan Thakkar MD EL TRUCK DRIVER documented in this encounter Miscellaneous Notes * Miscellaneous Scans - Document, Scanned - 04/20/2013 8:37 PM CST EL TRUCK DRIVER documented in this encounter Plan of Treatment Upcoming Encounters Date Type Department Care Team (Late st Contact Info) Description 08/13/2024 10:00 AM CDT Office Visit [facility] - Ophthalmology [address] [place] [address], [place] [address] Hemalatha Landers, SALVADOR [address] [facility] [place] [address] Pending Results Name Type Priority Associated Diagnoses Date /Time CARDIAC CATH CONSULT ECHO Routine 03/20 11:11 AM DIESEL TRUCK DRIVER documented as of this encounter Procedures Procedure Name Priority Date/Time Associated Diagnosis Comments CARDIAC PROCEDURE ORDER 05/25/2013 8:22 PM DIESEL TRUCK DRIVER CARDIAC PACER/DEFIB ORDER 04/20/2013 8:37 PM DIESEL TRUCK DRIVER CARDIAC CATH CONSULT Routine 04/17/2013 10:50 AM DIESEL TRUCK DRIVER documented in this encounter Results * CARDIAC PROCEDURE ORDER (05/25/2013 8:22 PM DIESEL TRUCK DRIVER) Narrative 05/25/2013 8:22 PM DIESEL TRUCK DRIVER Ordered by an unspecified provider. Transcriptions Document, Scanned - 04/20/2013 8:37 PM CST Document, Scanned - 05/25/2013 8:22 PM CST Scanned Document CARDIAC SERVICES ORD ERABLES * CARDIAC PACER/DEFIB ORDER (04/20/2013 8:37 PM DIESEL TRUCK DRIVER) Narrative 04/20/2013 8:37 PM DIESEL TRUCK DRIVER Ordered by an unspecified provider. Transcriptions Document, Scanned - 04/20/2013 8:37 PM CST Scanned Document CARDIAC SERVICES ORD ERABLES * TILT TABLE CONSULT (04/17/2013 10:50 AM DIESEL TRUCK DRIVER) Narrative [facility] - 04/17/2013 10:50 AM DIESEL TRUCK DRIVER Kenan Thakkar MD ? 04/17/2013 10:50 AM HEAD-UP TILT TABLE STUDY FINAL REPORT Brenna Chatterjee [id number] 1955 58 y.o. female Referring Physician:Dr. Thakkar [...] TILT TABLE STUDY FINAL REPORT Brenna Chatterjee [id number] 1955 58 y.o. female Referring Physician:Dr. Thakkar [...] Thakkar MD Kenan Thakkar MD ECHO ORDERABLES [facility] documented in this encounter Visit Diagnoses Not on filedocumented in this encounter Administered Medications Inactive Administered Medications - up to 3 most recent administrations Medication Order MAR Action Action Date Dose Rate Site 0.9% NaCl infusion at 20 mL/hr, Intravenous, PRE-PROCEDURE CONTINUOUS, Starting on Tue04/17/13 at 1000, Until Tue04/17/13 at 1531, For Tilt Table Procedure: Discontinue prior to discharge and when patient stable., Pre-procedure (CATH) $ New Bag/Syringe 04/17/2013 10:00 AM DIESEL TRUCK DRIVER 20 mL/hr 20 mL/hr ceFAZolin (ANCEF) IVPB 2 g 2 g, at 100 mL/hr, Intravenous, WASTE REMOVALIST, 1 dose, First dose on Tue04/17/13 at 1115, To be given in Precision Lens Technician, Pre-procedure (CATH) $ Given 04/17/2013 12:20 PM DIESEL TRUCK DRIVER 2 g 100 mL/hr diphenhydrAMINE (BENADRYL) injection 50 mg 50 mg, Intravenous, ONCE, 1 dose, On Tue04/17/13 at 1315, Max intravenous rate = 25 mg/min $ Given 04/17/2013 12:59 PM DIESEL TRUCK DRIVER 50 mg lidocaine (XYLOCAINE MPF) 1 % injection Infiltration, INTRA-PROCEDURE MULTIPLE, 1 dose, Starting on Tue04/17/13 at 1230, Until Tue04/17/13 at 1246 $ Given 04/17/2013 12:46 PM DIESEL TRUCK DRIVER 60 mL documented in this encounter Active and Recently Administered Medications Times are shown in DIESEL TRUCK DRIVER. Scheduled Medication Order 04/15/2013 04/16/2013 04/17/2013 ceFAZolin (ANCEF) IVPB 2 g (COMPLETED) 2 g, at 100 mL/hr, Intravenous, WASTE REMOVALIST, 1 dose, First dose on Tue04/17/13 at 1115, To be given in Precision Lens Technician, Pre-procedure (CATH) 1220 ($ Given - Prov ider: Claudia Gee, BROCK)1250 (Rx Stopped - Provider: Claudia Gee RN) diphenhydrAMINE (BENADRYL) injection 50 mg (COMPLETED) 50 mg, Intravenous, ONCE, 1 dose, On Tue04/17/13 at 1315, Max intravenous rate = 25 mg/min 1259 ($ Given - Prov ider: Claudia Gee RN) lidocaine (XYLOCAINE MPF) 1 % injection (COMPLETED) Infiltration, INTRA-PROCEDURE MULTIPLE, 1 dose, Starting on Tue04/17/13 at 1230, Until Tue04/17/13 at 1246 1246 ($ Given - Prov ider: Claudia Gee RN) Continuous Medication Order 04/15/2013 04/16/2013 04/17/2013 0.9% NaCl infusion (CANCELED) at 20 mL/hr, Intravenous, PRE-PROCEDURE CONTINUOUS, Starting on Tue04/17/13 at 1000, Until Tue04/17/13 at 1531, For Tilt Table Procedure: Discontinue prior to discharge and when patient stable., Pre-procedure (CATH) 1000 ($ New Bag/Syri nge - Provider: Eri Lucia RN) documented in this encounter
--- OUTSIDE RECORDS SUMMARY | 2024-04-04 19:40 | XMS_ITS | Encounter Summary ---
Author Organization [facility] Address [address] [place] [address] Care Team Providers Care Forestry Tree Pruner Name Role Phone Unavailable Primary Care Provider Unavailabl e Reason for Visit * Reason Comments Contact Lens Exam Encounter Details Date Type Department Care Team (Late st Contact Info) Description 03/15/2018 1:[address] Office Visit [facility] [address] [place] [address] [place] [address] [facility] [id number] Myopia with presbyopia of both eyes (Primary Dx) Social History [...] * Patient Instructions* Mariana Figueroa, OD - 03/15/2018 2:[address] Follow-up with Dr. Wells as scheduled Use preservative free artificial tears as needed [...] case. Return to contact lens clinic in 1 year, sooner if problems. Non-compliance may result in a sight threatening infection If you experience eye pain, redness, discharge, decrease in vision, new flashes of light or floaters in your vision, or if you feel that part of your vision is blocked or cut off, you must call the office immediately: [phone]. After hours call [phone] and ask for Eye resident Oracle Ascp Consultant. SION ROADMASTER documented in this encounter Progress Notes * Mariana Figueroa, OD - 03/15/2018 4:39 PM CST Brenna Chatterjee is a 63 y.o. female who is being seen at the request of Dr. Woodson for Chief Complaint Patient presents with ??? Contact Lens Exam Brenna Chatterjee is a 63 y.o. female She reports for a contact lens evaluation and fitting. She will be returning for full exam and DFE.She has been using an Amsler grid at home and has not noticed any changes in vision. Happy with vision and comfort of contact lenses. No irritation, redness or dryness of eyes. Reports taking good care of lenses. Okay with driving - has a restriction on her license, but is okay with that (knows that she would not have a restriction if she wore her glasses while driving). Has an appointment scheduled with Dr. Wells for 04/06/18. Allergies: is allergic to flecainide. EXAM: Base Eye Exam Visual Acuity (Snellen - Linear) Right Left Dist cc 20/30 -2 20/200 Near cc J7 J2 Correction: Contacts Tonometry (Tonopen, 1:49 PM) Right Left Pressure 20 17 Neuro/Psych Oriented x3: Yes Mood/Affect: Normal Slit Lamp and Fundus Exam External Exam Right Left External Normal Normal Slit Lamp Exam Right Left Lids/Lashes Dermatochalasis - upper lid Dermatochalasis - upper lid Conjunctiva/Sclera White and quiet White and quiet Cornea trace SPEE trace SPEE Anterior Chamber Deep and quiet Deep and quiet Iris Round and reactive Round and reactive Lens 1+ NSC 1+ NSC Vitreous Normal Normal Fundus Exam Right Left Disc Normal Normal C/D Ratio 0.2 0.2 Macula Normal Normal Vessels Normal to view Normal to view Viewed undilated with digital high mag and slit lamp Refraction Manifest Refraction Sphere Cylinder [place] Dist Add Right -4.25 -1.00 060 20/20 +1.75 Left -8.00 -1.25 145 20/30 +1.75 Comments: 20/20 OU Final Rx Sphere Cylinder [place] Add Right -4.25 -1.00 060 +1.75 Left -8.00 -1.25 145 +1.75 Type: Bifocal Expiration Date: 09/14/2018 Contact Lens Exam Current Contact Lens Rx (Dispensed) Brand Base Curve Diameter Sphere Lens Dist VA Centration Movement Over-Sphere Right Accucon Blue 7.90 9.5 -5.00 RGP 20/30 Well-centered, good lid attachment Adequate -0.25 Left Fluoroperm 60 7.90 9.5 -5.00 RGP 20/200 Well-centered - good lid attachment Adequate Over-VA Right 20/25 Left Contact History AWT: 12 Lens Age: 2yr IMPRESSION: 1. POHS OS - followed by Dr. Wells - no changes on amsler 2. Myopia and presbyopia - good comfort and vision with current lenses - lenses are in good condition RECOMMENDATION: 1. Continue with Amsler Grid - call with any changes. Follow-up with Dr. Wells as scheduled. 2. Polished lenses. Reminded on proper care. Follow-up in in contact lens clinic in 1 year, sooner if problems. Time was spent answering questions and patient voiced understanding/in agreement with plan. Given AVS. [] Patient seen and examined. Resident/Electroplating Laborer note reviewed and discussed. I confirm these findings other than where revisions were made. SION ROADMASTER documented in this encounter Plan of Treatment Upcoming Encounters Date Type Department Care Team (Late st Contact Info) Description 08/13/2024 10:00 AM CDT Office Visit [facility] - Ophthalmology [facility] [place] [address] Hemalatha Landers, SALVADOR [facility] [facility] [place] [address] documented as of this encounter Visit Diagnoses Diagnosis Myopia with presbyopia of both eyes- Primary documented in this encounter
--- OUTSIDE RECORDS SUMMARY | 2024-04-04 19:40 | XMS_ITS | Encounter Summary ---
Author Organization [facility] Address [address] [place] [address] Care Team Providers Care Infant Lead Teacher Name Role Phone Unavailable Primary Care Provider Unavailabl e Reason for Visit * Reason Onset Date Comments Follow-up 03/25/2019 Encounter Details Date Type Department Care Team (Late Contact Info) Description 03/25/2019 Telephone [facility] AT [address] [address] Delia Harris Follow-up Social History Tobacco Use Types Packs/Day [...] Office Visit [facility] - Ophthalmology [address] [place] [phone] Hemalatha Landers M, SALVADOR [address] [place] [address] [place] [phone] documented as of this encounter Visit Diagnoses Not on filedocumented in this encounter
--- OUTSIDE RECORDS SUMMARY | 2024-04-04 19:40 | XMS_ITS | Encounter Summary ---
Author Organization [facility] Address [address] [place] [address] Care Team Providers Care Chart Computer Name Role Phone Unavailable Primary Care Provider Unavailabl e Reason for Visit * Reason Onset Date Comments Medication Issue 01/24/2018 Encounter Details Date Type Department Care Team (Late st Contact Info) Description 01/24/2018 Telephone [facility] AT [address] [address] Provider, [facility] Medication Issue Social History Tobacco Use Types Packs/Day Years [...] encounter Miscellaneous Notes * Telephone Encounter - Deni Galvan - 01/24/2018 4:03 PM CDT Who is calling? Elizabeth If other than self is caller listed on the HIPAA? no If caller is anyone other than listed above, where are they calling from? [facility] pharmacy What is the reason for call? Elizabeth called in stating that patient is expecting meds to be sent there but the pharmacy has not received anything. Expected Response from the Clinic? ( ex. Call back, etc..) Call back SCOW HAND Re-sent scripts to the pharmacy that was originally sent to earlier; will call pharmacy to confirm this. documented in this encounter Plan of Treatment Upcoming Encounters Date Type Department Care Team (Late st Contact Info) Description 08/13/2024 10:00 AM CDT Office Visit [facility] - Ophthalmology [facility] [place] [address] Hemalatha Landers M, OD [address] [facility] [place] [phone] documented as of this encounter Visit Diagnoses Not on filedocumented in this encounter
--- OUTSIDE RECORDS SUMMARY | 2024-04-04 19:40 | XMS_ITS | Encounter Summary ---
Author Organization [facility] Address [address] [place] [address] Care Team Providers Care Agriculture Internship Name Role Phone Unavailable Primary Care Provider Unavailabl e Reason for Visit * Auth/Cert - Closed Specialty Diagnoses / Procedures Referred By Contac t Referred To Contact Diagnoses CAD (coronary artery disease) cad Referral ID Status Reason Start Date Expiration Date Visits Re quested Visits Authorized [id number] Closed 1 1 Encounter Details Date Type Department Care Team (Late st Contact Info) Description 04/17/2013 12:23 PM SURGICAL BRACE MAKER Anesthesia Event [facility] - Cardiac Charging Crane Operator [address] [place] [address] Brian Sterling MD [address] [place] [address] Stevenson Rae, RADIO STATION AUDIO ENGINEER-MARKETING ANALYTICS MANAGER [address] [place] [address] Anesthesia Record Procedure Summary Procedure Name Responsible Anesthesiologist Anesthesia Start Time Anesthesia Stop Time insertion loop recorder Brian Sterling MD 04/17/13 1223 04/17/13 1306 Events Date Time Event Comment 04/17/2013 1218 1223 An Start 1223 An Start Data 1234 Elect Sign The providers l isted as staff are the responsible providers for the case. 1252 Quick Note Pt cpmplained o f itching from prep.Unclaimed Property Manager wiped prep off benadryl 50 mg IV given. 1257 an stop data 1259 ANPTO2 1306 An Stop Meds Name Total midazolam 1 mg/mL injection 2 mg fentaNYL injection 125 mcg propofol 10 mg/ml injection 99.8 mg 0.9% NaCl infusion 200 mL * Agents Name Insp. N2O O2 * Blood No blood administrations on file. Lines, Drains, and Airways Type Details Placement Removal Peripheral IV Date: 04/17/13; Time : 952; Orientation: Left; Placed By: cecily luna 04/17/13 0953 by Eri Lucia RN 04/17/13 1419 by Elaine Puentes RN RETIRED Incision 04/17/13; 1238; Left , Medial; Chest; 04/17/13; 203004/17/13 1238 by Esther Dyer RN 04/17/132030 by Generic, Auto Release documented in this encounter Social History Tobacco Use Types Packs/Day Years Used Date Smoking Tobacco: Never Alcohol Use Standard Drinks/Week Comments Not Asked 0 (1 standard drink = 0.6 oz pur e alcohol) Sex and Gender Information Value Date Recorded Sex Assigned at Not on file Gender Identity Not on file Sexual Orientation Not on file documented as of this encounter Progress Notes * Miranda Rae APRN-MARKETING ANALYTICS MANAGER - 04/17/2013 1:05 PM CST ANESTHESIA POSTPROCEDURE EVALUATION Brenna Chatterjee is a 58 y.o. female Temp: 36.6 ??C Pulse: 73 Resp: 19 BP: 135/65 mmHg SpO2: 96 % Pain Rating Score #: 0 A postop evaluation was performed on this patient with the following assessment: no apparent anesthesia complications Mental status: sufficiently recovered from acute administration of anesthesia to participate in theevaluation and neurologic status has returned to preoperative level. Level of consciousness: awake No numbness, tingling or visual disturbances present. General appearance: well-appearing Respiratory function: natural airway. Cardiac: stable Pain: comfortable/acceptable PONV: None Postop hydration: adequate. Final anesthesia type: MAC with local Patient may be released from anesthesia care. ICAL BRACE MAKER documented in this encounter Consult Notes * Stevenson Rae APRN-CRNA - 04/17/2013 12:18 PM CST Pre-anesthesia Evaluation * No surgery found * Vital Signs: Temp: [35.9 ??C-36.6 ??C] Pulse: [69-80] Resp: [12-25] BP: (86-144)/(39-90) SpO2: [92 %-97 %] BMI: Estimated Body mass index is 34.46 kg/(m^2) as calculated from the following: Height as of an earlier encounter on 04/17/13: 5' 7 (1.702 m). Weight as of an earlier encounter on 04/17/13: 220 lb(99.791 kg). History: Past Medical History Diagnosis Date ??? Hypertension ??? Atrial fibrillation ??? Sleep apnea ??? Arthritis ??? Hypercholesteremia Past Surgical History Procedure Date ??? Cholecystectomy ??? Hysterectomy reports that she has never smoked. She does not have any smokeless tobacco history on file. Allergies: is allergic to flecainide. Medications: Prescriptions prior to admission Medication Status Sig [...] current facility-administered medications for this visit. No current outpatient prescriptions on file. Facility-Administered Medications Ordered in Other Visits: 0.9% NaCl infusion, Active, , Intravenous, pre-Procedure continuous, Kenan Thakkar MD, Last Rate: 20 mL/hr at 04/17/13 1000, 20 mL/hr at 04/17/13 1000; isoproterenol (ISUPREL) 1 mg in NaCl 0.9 % infusion, Active, 0-10 mcg/min, Intravenous, intra-Procedure continuous, Kenan Thakkar MD; ceFAZolin (ANCEF) IVPB 2 g, Active, 2 g, Intravenous, On[place], Kenan Thakkar MD Physical Exam: NPO status: since midnight Oriented to person, place and time Airway: II Neck ROM: full Dental exam findings: normal/ok Pulmonary exam: breath sounds CTA Heart sounds: S1 S2 Anesthesia complications Postop nausea and vomiting Positive for snoring Plan for Anesthesia: ASA Score: 2. Anesthesia plan: MAC Planned method of induction: intravenous Planned postop destination: other (cardiology) Anesthesia plan, risks and benefits discussed with patient Anesthesia consent: obtained Plan accepted yes Discussed anesthesia plan with: anesthesiologist. ICAL BRACE MAKER documented in this encounter Miscellaneous Notes * Addendum Note - Stevenson Rae APRN-CRNA - 06/28/2013 9:31 AM CDT Addendum created 06/28/13930 by RONN Up Modules edited:Anesthesia Responsible Staff documented in this encounter Plan of Treatment Upcoming Encounters Date Type Department Care Team (Late st Contact Info) Description 08/13/2024 10:00 AM CDT Office Visit [facility] - Ophthalmology [address] [place] [phone] Hemalatha Landers, OD [address] [facility] [place] [phone] documented as of this encounter Visit Diagnoses Not on filedocumented in this encounter Administered Medications Inactive Administered Medications - up to 3 most recent administrations Medication Order MAR Action Action Date Dose Rate Site 0.9% NaCl infusion CONTINUOUS PRN, Starting on Tue04/17/13 at 1223, Until Tue04/17/13 at 1306, Anesthesia Intra-op $ New Bag/Syringe 04/17/2013 12:23 PM SURGICAL BRACE MAKER mL fentaNYL (SUBLIMAZE) injection PRN, Starting on Tue04/17/13 at 1224, Until Tue04/17/13 at 1306, Anesthesia Intra-op $ Given 04/17/2013 12:45 PM SURGICAL BRACE MAKER 25 mcg $ Given 04/17/2013 12:39 PM SURGICAL BRACE MAKER 50 mcg $ Given 04/17/2013 12:27 PM SURGICAL BRACE MAKER 25 mcg midazolam (VERSED) injection PRN, Starting on Tue04/17/13 at 1224, Until Tue04/17/13 at 1306, Anesthesia Intra-op $ Given 04/17/2013 12:24 PM SURGICAL BRACE MAKER 2 mg propofol (DIPRIVAN) injection CONTINUOUS PRN, Starting on Tue04/17/13 at 1230, Until Tue04/17/13 at 1306, Anesthesia Intra-op $ New Bag/Syringe 04/17/2013 12:30 PM SURGICAL BRACE MAKER 50 mcg/kg/min 29.94 mL/hr documented in this encounter
--- OUTSIDE RECORDS SUMMARY | 2024-04-04 19:42 | XMS_ITS | Encounter Summary ---
Author Organization [facility] Address [address] [place] [address]. [place] [address] [place] [address] Care Team Providers Care Gasoline Pump Installer Name Role Phone Bianca Aggarwal Primary Care Provider [phone] Encounter Details Date Type Department Care Team (Latest Contact Info) Description 10/25/2023 Scan HEALTH INFO SRVCS Scanned, Doc Med Group Social History Tobacco Use Types Packs/Day Years Used Date Smoking Tobacco: Never Smokeless Tobacco: Never Alcohol Use Standard Drinks/Week Comments Never 0 (1 standard drink = 0.6 oz pur e alcohol) AUDIT-C Answer Date Recorded Q1: How often do you have a drink containing alc ohol? Never 05/20/2020 Average Number of Drinks Not on file Frequency of Binge Drinking Not on file 05/2020 PHQ-2 Answer Date Recorded Patient Health Questionnaire-2 Score 0 02/14/2023 Comments No Sex and Gender Information Value Date Recorded Sex Assigned at Not on file Legal Sex Female 1:23 PM ORDER CLERK Gender Identity Not on file Sexual Orientation Not on file documented as of this encounter Plan of Treatment Upcoming Encounters Date Type Department Care Team (Late st Contact Info) Description 09/06/2024 10:40 AM CDT Office Visit [facility] Medical Group Family & Internal Medicine - [address] [phone] Bianca Aggarwal FNP [address] [place] [address] documented as of this encounter Visit Diagnoses Not on filedocumented in this encounter Additional Health Concerns Assessment Noted Time PHQ-9 Depression Total Score: 5 02/15/20 23 10:50 AM CDT documented as of this encounter Care Teams Gasoline Pump Installer Relationship Specialty Start Date End Date Bianca Aggarwal FNP [address] [place], [place] [id number] PCP - General Nurse Practitioner Family 05/20/20 documented as of this encounter
--- OUTSIDE RECORDS SUMMARY | 2024-04-04 19:42 | XMS_ITS | Encounter Summary ---
Author Organization [facility] Address [address] [place] [address]. [place] [address] [place] [address] Care Team Providers Care Cardiac Cath Lab Technologist Name Role Phone Bianca Aggarwal Primary Care Provider Reason for Visit * Reason Comments Lab (SCAN) Image (SCAN) Encounter Details Date Type Department Care Team (Late st Contact Info) Description 04/20/2023 Scan HEALTH INFO SRVCS Scanned, Doc Med Group Lab (SCAN); Image (SCAN) Social History Tobacco Use Types Packs/Day Years Used Date Smoking Tobacco: Never Smokeless Tobacco: Never Alcohol Use Standard Drinks/Week Comments Never 0 (1 standard drink = 0.6 oz pur e alcohol) AUDIT-C Answer Date Recorded Q1: How often do you have a drink containing alc ohol? Never 05/20/2020 Average Number of Drinks Not on file 021 Frequency of Binge Drinking Not on file 05/2020 PHQ-2 Answer Date Recorded Patient Health Questionnaire-2 Score 0 02/14/2023 Comments No Sex and Gender Information Value Date Recorded Sex Assigned at Not on file Legal Sex Female 1:23 PM ORGANIZATIONAL CONSULTANT Gender Identity Not on file Sexual Orientation Not on file documented as of this encounter Plan of Treatment Upcoming Encounters Date Type Department Care Team (Late Contact Info) Description 09/06/2024 10:40 AM CDT Office Visit [facility] Medical Group Family & Internal Medicine [phone] [place] [phone] Bianca Aggarwal FNP [address] [place] [address] documented as of this encounter Procedures Procedure Name Priority Date/Time Associated Diagnosis Comments OUTSIDE PT/INR (SCAN ORDER) 04/20/2023 OUTSIDE LAB (SCAN ORDER) 04/20/2023 IMAGE GENERIC 04/20/2023 documented in this encounter Results * OUTSIDE PT/INR (SCAN) (04/20/2023) 04/20/2023 [facility] Doc Med [facility] Scanned SCANNING Final Resu lt * OUTSIDE LAB (SCAN) (04/20/2023) 04/20/2023 us Doc Med Group Scanned SCANNING Final Resu lt * IMAGE GENERIC (04/20/2023) Anatomical Region Laterality Modality Other 04/20/2023 [facility] Scanned SCANNING Final Resu lt documented in this encounter Visit Diagnoses Not on filedocumented in this encounter Additional Health Concerns Assessment Noted Time PHQ-9 Depression Total Score: 5 02/15/20 23 10:50 AM CDT documented as of this encounter Care Teams Cardiac Cath Lab Technologist Relationship Specialty Start Date End Date Bianca Aggarwal FNP [address] [place] [address] PCP - General Nurse Practitioner Family 05/20/20 documented as of this encounter
--- OUTSIDE RECORDS SUMMARY | 2024-04-04 19:42 | XMS_ITS | Encounter Summary ---
Author Organization [facility] Address [address] [place] [address]. [place], [place] [address] [place] [address] Care Team Providers Care Hot Head Machine Operator Name Role Phone Bianca Aggarwal Primary Care Provider [phone] Reason for Referral * Medication Prior Authorization - Authorized Specialty Diagnoses / Procedures Referred By Janice vergara Referred To Contact Diagnoses COVID-19 Bianca Aggarwal FNP [address] [place] [address] Phone: tel: fax: Referral ID Status Reason Start Date Expiration Date V isits Requested Visits Authorized [id number] Authorized 04/18/2023 04/17/2025 1 1 Reason for Visit * Reason Onset Date Comments COVID-19 02/13/2024 Encounter Details Date Type Department Care Team (Late st Contact Info) Description 02/13/2024 Telephone [facility] Medical Group Family & Internal Medicine - [place] [address] [place] [phone] Bianca Aggarwal FNP [address] [place] [address] COVID-19 Social History Tobacco Use Types Packs/Day Years [...] Date Recorded Patient Health Questionnaire-2 Score 0 12/14/2023 Comments No Sex and Gender Information Value Date Recorded Sex Assigned at Not on file Legal Sex Female 1:23 PM WEED BURNER Gender Identity Not on file Sexual Orientation Not on file documented as of this encounter Progress Notes * Christy Armstrong RN - 02/14/2024 3:19 PM CDT Patient was able to pick the medication up. Opportunity given for all questions to be answered, no further needs voiced at this time. LL-02/14/24 * AMBROSIO Chambers - 02/14/2024 8:50 AM CDT [facility] stating they still have not received Paxlovid prescription for this patient. Please advise * Christy Armstrong RN - 02/13/2024 4:40 PM CDT Patient notified and verbalized understanding. Patient was already taken off of the atorvastatin. This nurse also advised patient of red flag symptoms to monitor for. Opportunity given for all questions to be answered, no further needs voiced at this time. LL-02/13/24 * ONDINA Pope - 02/13/2024 2:04 PM CDT Okay for paxlovid Gfr 98 in [facility] ( [facility]) She should hold her atorvastatin while on this medication * Cheyenne Ward - 02/13/2024 8:58 AM CDT Patient called back with a positive result and would like Paxlovid called in if it will do her good. Symptoms started Tuesday. [phone] [facility]. * Cheyenne Ward - 02/13/2024 8:27 AM CDT Patient called in and thinks she may hve COVID. She will call us back again after taking a home COVID test. documented in this encounter Plan of Treatment Upcoming Encounters Date Type Department Care Team (Late st Contact Info) Description 09/06/2024 10:40 AM CDT Office Visit [facility] Medical Group Family & Internal Medicine - [address] [phone] Bianca Aggarwal FNP [address] [place] [address] documented as of this encounter Visit Diagnoses Diagnosis COVID-19- Primary documented in this encounter Additional Health Concerns Assessment Noted Time PHQ-9 Depression Total Score: 5 02/15/20 23 10:50 AM CDT documented as of this encounter Care Teams Hot Head Machine Operator Relationship Specialty Start Date End Date Bianca Aggarwal FNP [address] [place] [address] PCP - General Nurse Practitioner Family 05/20/20 documented as of this encounter
--- OUTSIDE RECORDS SUMMARY | 2024-04-04 19:42 | XMS_ITS | Encounter Summary ---
Author Organization [facility] Address [address] [place] [address]. [place] [address] [place] [address] Care Team Providers Care Professor Of Finance Name Role Phone Bianca Aggarwal Primary Care Provider [phone] Encounter Details Date Type Department Care Team (Latest Contact Info) Description 02/10/2023 Travel Social History Tobacco Use Types Packs/Day [...] on file 05/2020 PHQ-2 Answer Date Recorded PHQ-2 Score - If the patient scores above 3, please move on to questions 3-9 0 01/27/2022 Comments No Sex and Gender Information Value Date Recorded Sex Assigned at Not on file Legal Sex Female 1:23 PM FABRICATION OPERATOR Gender Identity Not on file Sexual Orientation Not on file documented as of this encounter Plan of Treatment Upcoming Encounters Date Type Department Care Team (Late st Contact Info) Description 09/06/2024 10:40 AM CDT Office Visit [facility] Medical Group Family & Internal Medicine - [place] [phone] [place] [address] Bianca Aggarwal FNP [facility] [place] [address] documented as of this encounter Visit Diagnoses Not on filedocumented in this encounter Additional Health Concerns Assessment Noted Time PHQ-9 Depression Total Score: 0 10/12/20 22 1:07 PM CDT documented as of this encounter Care Teams Professor Of Finance Relationship Specialty Start Date End Date Bianca Aggarwal FNP [address] [place] [address] PCP - General Nurse Practitioner Family 05/20/20 documented as of this encounter
--- OUTSIDE RECORDS SUMMARY | 2024-04-04 19:42 | XMS_ITS | Encounter Summary ---
Author Organization [facility] Address [address] [place] [address]. [place] [address] [place] [address] Care Team Providers Care Automation Technologist Name Role Phone Bianca Aggarwal Primary Care Provider [phone] Encounter Details Date Type Department Care Team (Latest Contact Info) Description 05/25/2023 Scan HEALTH INFO SRVCS Scanned, Doc Med [...] on file Legal Sex Female 1:23 PM CHIEF NURSE EXECUTIVE Gender Identity Not on file Sexual Orientation Not on file documented as of this encounter Plan of Treatment Upcoming Encounters Date Type Department Care Team (Late st Contact Info) Description 09/06/2024 10:40 AM CDT Office Visit [facility] Medical Group Family & Internal Medicine - [address] [phone] Bianca Aggarwal FNP [address] [place] [address] documented as of this encounter Visit Diagnoses Not on filedocumented in this encounter Additional Health Concerns Assessment Noted Time PHQ-9 Depression Total Score: 5 02/15/20 23 10:50 AM CDT documented as of this encounter Care Teams Automation Technologist Relationship Specialty Start Date End Date Bianca Aggarwal FNP [address] [place], [place] [phone] PCP - General Nurse Practitioner Family 05/20/20 documented as of this encounter
--- OUTSIDE RECORDS SUMMARY | 2024-04-04 19:42 | XMS_ITS | Encounter Summary ---
Author Organization [facility] Address [facility] [place] [address] [place] [address] Care Team Providers Care Field Service Analyst Name Role Phone Bianca Aggarwal ONDINA Primary Care Provider [phone] Reason for Visit * Reason Comments Follow Up Runny Nose Patient c/o constant runny, dripping nose. Patient states this has been going on a while and drips all the time . Encounter Details Date Type Department Care Team (Late st Contact Info) Description 03/08/2024 10:00 AM SANITATION LEAD Office Visit [facility] Family & Internal Medicine [id number] [place] [address] ClaribelBianca nance FNP [facility] [place], [place] [id number] Follow Up; Runny Nose (Patient c/o constant runny, dripping nose. Patient states this has been going on a while and drips all the time . ) Social History Tobacco Use Types Packs/Day Years [...] on file Legal Sex Female 1:23 PM SANITATION LEAD Gender Identity Not on file Sexual Orientation Not on file documented as of this encounter Last Filed Vital Signs Vital Sign Reading Time Taken Comments Blood Pressure 116/74 03/08/2024 10:13 AM SANITATION LEAD Pulse 73 03/08/2024 10:13 AM SANITATION LEAD Temperature 36.9 ??C (98.4 ??F) 03/08/2024 10:[address] Respiratory Rate 16 03/08/2024 10:13 AM SANITATION LEAD Oxygen Saturation 96% 03/08/2024 10:13 AM SANITATION LEAD Inhaled Oxygen Concentration - - Weight 102 kg (224 lb 12.8 oz) 03/08/2024 10:13 AM SANITATION LEAD Height 170.2 cm (5' 7 ) 03/08/2024 10:13 AM SANITATION LEAD Body Mass Index 35.21 03/08/2024 10:13 AM SANITATION LEAD documented in this encounter Patient Instructions * Patient Instructions* ONDINA Pope - 03/08/2024 10:00 AM SANITATION LEAD Your current medications as prescribed Maintain follow-up with your specialists as scheduled Maintain a heart healthy diet and get some daily physical activity as tolerated We did get your influenza vaccine today Call for any questions or concerns Follow-up at least every 6 months or sooner if needed TATION LEAD * Attachments The following attachments cannot be sent through Care Everywhere. * Influenza Vaccine (Inactivated or Recombinant) CDC Vaccine Information Statement (VIS) (Malagasy) documented in this encounter Progress Notes * ONDINA Pope - 03/08/2024 10:00 AM CSTSummary: Chronic condition follow-up Office Progress Note Reason for Visit: Follow Up and Runny Nose (Patient c/o constant runny, dripping nose. Patient states this has been going on a while and drips all the time . ) History of Present Illness: Brenna presents to the office for a f/u of her chronic conditions She takes tramadol prn for her rheumatoid arthritis pain. Her UDS and CSA updated in her chart. Shedenies any side effects from this medication. 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 She reports that her outreach and education social worker is okay with her taking an injectable medication to help with weight loss but we discussed that her insurance would not probably cover this unless she was diabetic. She does have a familyhistory of diabetes and her BMI is 35 which puts her at higher risk for diabetes. We discussed getting an A1c today and she is agreeable to this plan. Allergic rhinitis We discussed starting a nasal spray for this and she is agreeable to this plan. She is due for an influenza vaccine and is agreeable to getting this today Mammogram is UTD and she sees Dr Mirela oconnor ROS: Review of Systems Constitutional: Negative for chills, diaphoresis, fever, malaise/fatigue and weight loss. HENT: Negative for congestion, ear discharge, ear pain, hearing loss, nosebleeds, sinus pain, sore throat and tinnitus. Runny nose Eyes: Negative for blurred vision, double vision, photophobia, pain, discharge and redness. Respiratory: Negative for cough, hemoptysis, sputum production, shortness of breath, wheezing and stridor. Cardiovascular: Negative for chest pain, palpitations, orthopnea, claudication, leg swelling and PND. Gastrointestinal: Negative for abdominal pain, blood in stool, constipation, diarrhea, heartburn, melena, nausea and vomiting. Genitourinary: Negative for dysuria, flank pain, frequency, hematuria and urgency. Musculoskeletal: Negative for back pain, falls, joint pain, myalgias and neck pain. Skin: Negative for itching and rash. Neurological: Negative for dizziness, tingling, tremors, sensory change, speech change, focal weakness, seizures, loss of consciousness, weakness and headaches. Endo/Heme/Allergies: Negative for environmental allergies and polydipsia. Does not bruise/bleed easily. Psychiatric/Behavioral: Negative for depression, hallucinations, memory loss, substance abuse and suicidal ideas. The patient is not nervous/anxious and does not have insomnia. Medications: Current Outpatient Medications on File Prior to Visit Medication Sig alendronate (FOSAMAX) 35 MG tablet TAKE 1 TABLET BY MOUTH BY MOUTH EVERY WEEK Strength: 35 mg ALPRAZolam 0.25 MG tablet Take one tablet one hour prior to your MRI and, if not effective, you canmay take another tablet. 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 ELIQUIS 5 MG tablet Take 1 tablet (5 mg total) by mouth 2 (two) times daily. estradiol (ESTRACE) 1 MG tablet Take 1.5 tablets (1.5 mg total) by mouth daily. Take 1.5 mg by mouth daily. lisinopril (PRINIVIL) 10 MG tablet Take 1 tablet (10 mg total) by mouth daily. Magnesium 400 MG Tab Take 400 mg by mouth daily. meclizine 25 MG tablet Take 1 tablet (25 mg total) by mouth 3 (three) times daily as needed. methylPREDNISolone, MATTHEW, (MEDROL DOSEPAK) 4 MG tablet Take 1 tablet (4 mg total) by mouth see administration instructions. 6 TABLETS ON DAY ONE, 5 TABLETS DAY TWO, 4 TABLETS DAY THREE, 3 TABLETS DAY FOUR, 2 TABLETS DAY FIVE, AND 1 TABLET DAY SIX metoprolol succinate ER (TOPROL-XL) 25 MG 24 hr tablet Take 1 tablet (25 mg total) by mouth 2 (two)times a day. Multiple Vitamins-Minerals (PRESERVISION AREDS) capsule Take 1 capsule by mouth daily. omeprazole (PRILOSEC) 40 MG capsule Take 1 capsule (40 mg total) by mouth every morning. potassium chloride 20 MEQ packet Take 1 packet by mouth daily. spironolactone 25 MG tablet Take 1 tablet (25 mg total) by mouth daily. tiZANidine HCl 2 MG Cap Take one capsule three times daily as needed for pain/muscle spasm. traMADol (ULTRAM) 50 MG tablet take 1 tablet by mouth three times daily vibegron (GEMTESA) 75 MG tablet Take 1 tablet (75 mg total) by mouth daily. No current facility-administered medications on file prior to visit. Allergies: Review of patient's allergies indicates: Allergen Reactions Flecainide Other (see comment) and Palpitations Other reaction(s): Runs of non-sustained VT (< 3 seconds) on Holter 2010 Iodine Itching and Unknown Latex Itching and Unknown Oxycodone Other (see comment) Morphine Nausea Only and Nausea and Vomiting Medical History: Past Medical History: Diagnosis Date A-fib ([facility]/HCC [facility]) Hyperlipidemia Hypertension PVD (peripheral vascular disease) (CMS/HCC) Venous insufficiency Ventricular tachyarrhythmia (CMS/HCC HHS/HCC) Surgical History: Past Surgical History: Procedure Laterality Date CHOLECYSTECTOMY HYSTERECTOMY INSER BARRETT PACER XVENOUS ATRIAL KNEE ARTHROPLASTY Bilateral LOOP 1UL cardiac Social History: Social History Socioeconomic History Marital status: Tobacco Use Smoking status: Never Smokeless tobacco: Never Vaping Use Vaping status: Never Used Substance and Sexual Activity Alcohol use: Never Drug use: Never Family History: Family History Problem Relation Name Age of Onset Aneurysm Mother Heart Disease Father Heart Disease Brother PE: Physical Exam Vitals and nursing note reviewed. Constitutional: General: She is not in acute distress. Appearance: Normal appearance. She is well-developed and well-groomed. She is not ill-appearing, toxic-appearing or diaphoretic. HENT: Head: Normocephalic and atraumatic. Jaw: There is normal jaw occlusion. Right Ear: Hearing and external ear normal. Left Ear: Hearing and external ear normal. Nose: Nose normal. Mouth/Throat: Mouth: Mucous membranes are moist. Pharynx: Oropharynx is clear. Eyes: General: Lids are normal. Vision grossly intact. Gaze aligned appropriately. Extraocular Movements: Extraocular movements intact. Conjunctiva/sclera: Conjunctivae normal. Neck: Thyroid: No thyroid mass, thyromegaly or thyroid tenderness. Vascular: Normal carotid pulses. No carotid bruit, hepatojugular reflux or JVD. Trachea: Trachea and phonation normal. Cardiovascular: Rate and Rhythm: Normal rate and regular rhythm. Heart sounds: Murmur heard. Pulmonary: Effort: Pulmonary effort is normal. No tachypnea, bradypnea, accessory muscle usage, prolonged expiration, respiratory distress or retractions. Breath sounds: Normal breath sounds and air entry. No stridor, decreased air movement or transmitted upper airway sounds. No decreased breath sounds, wheezing, rhonchi or rales. Abdominal: General: Abdomen is flat. Bowel sounds are normal. There is no distension or abdominal bruit. Thereare no signs of injury. Palpations: Abdomen is soft. Tenderness: There is no abdominal tenderness. Musculoskeletal: Cervical back: Full passive range of motion without pain, normal range of motion and neck supple. No edema, erythema, signs of trauma, rigidity, torticollis or crepitus. No pain with movement, spinous process tenderness or muscular tenderness. Normal range of motion. Right lower leg: No edema. Left lower leg: No edema. Lymphadenopathy: Cervical: No cervical adenopathy. Skin: General: Skin is warm and dry. Capillary Refill: Capillary refill takes less than 2 seconds. Findings: No rash. Neurological: Mental Status: She is alert and oriented to person, place, and time. Cranial Nerves: No cranial nerve deficit. Sensory: Sensation is intact. No sensory deficit. Motor: Motor function is intact. Coordination: Coordination is intact. Coordination normal. Gait: Gait is intact. Gait normal. Psychiatric: Attention and Perception: Attention and perception normal. Mood and Affect: Mood and affect normal. Speech: Speech normal. Behavior: Behavior normal. Behavior is cooperative. Thought Content: Thought content normal. Cognition and Memory: Cognition and memory normal. Judgment: Judgment normal. Filed Vitals: 03/08/24 1013 BP: 116/74 Pulse: 73 Resp: 16 Temp: 98.4 ??F (36.9 ??C) TempSrc: Skin SpO2: 96% Weight: 102 kg (224 lb 12.8 oz) Height: 1.702 m (5' 7 ) Diagnoses/Impression: 1. Hypercholesterolemia 2. Ventricular tachycardia ([facility]/HCC HHS/HCC) 3. Cardiac pacemaker in situ 4. Atrial tachycardia ([facility]/HCC HHS/HCC) 5. Atherosclerosis of arteries of extremities ([facility]/HCC) 6. Rheumatoid arthritis involving multiple sites with positive rheumatoid factor ([facility] HHS/HCC) 7. Class 2 severe obesity due to excess calories with serious comorbidity and body mass index (BMI)of 35.0 to 35.9 in adult ([facility]/HCC HHS/HCC) A1C (BACK OFFICE) COLLECT.CAPILLARY (FNGR,HEEL,EAR) 8. Family history of diabetes mellitus (DM) A1C (BACK OFFICE) COLLECT.CAPILLARY (FNGR,HEEL,EAR) 9. Other abnormal glucose A1C (BACK OFFICE) 10. Leg swelling furosemide (LASIX) 20 MG tablet 11. Allergic rhinitis, unspecified seasonality, unspecified trigger fluticasone propionate (FLONASE) 50 MCG/ACT nasal spray 12. Need for immunization against influenza [25299] Flu Vaccine, Split Virus, High Dose 65+ Years Recommendations and Plan: 1. Hypercholesterolemia Advised to continue medication as prescribed We discussed maintaining a heart healthy diet and getting some daily physical activity as tolerated Advised to follow-up with her specialist as scheduled Routine follow-up was advised with me, sooner if needed 2. Ventricular tachycardia ([facility]) Advised to continue medication as prescribed We discussed maintaining a heart healthy diet and getting some daily physical activity as tolerated Advised to follow-up with her specialist as scheduled Routine follow-up was advised with me, sooner if needed 3. Cardiac pacemaker in situ Advised to continue medication as prescribed We discussed maintaining a heart healthy diet and getting some daily physical activity as tolerated Advised to follow-up with her specialist as scheduled Routine follow-up was advised with me, sooner if needed 4. Atrial tachycardia ([facility]) Advised to continue medication as prescribed We discussed maintaining a heart healthy diet and getting some daily physical activity as tolerated Advised to follow-up with her specialist as scheduled Routine follow-up was advised with me, sooner if needed 5. Atherosclerosis of arteries of extremities ([facility]) Advised to continue medication as prescribed We discussed maintaining a heart healthy diet and getting some daily physical activity as tolerated Advised to follow-up with her specialist as scheduled Routine follow-up was advised with me, sooner if needed 6. Rheumatoid arthritis involving multiple sites with positive rheumatoid factor ([facility]) Advised to maintain follow-up with her specialist as scheduled She will continue her medications as prescribed and as needed Routine follow-up was advised with me 7. Class 2 severe obesity due to excess calories with serious comorbidity and body mass index (BMI)of 35.0 to 35.9 in adult ([facility]) - A1C (BACK OFFICE) - COLLECT.CAPILLARY (FNGR,HEEL,EAR) Advised to continue working on a heart healthy diet and getting some daily physical activity Labs to be obtained as ordered Routine follow-up advised 8. Family history of diabetes mellitus (DM) - A1C (BACK OFFICE) - COLLECT.CAPILLARY (FNGR,HEEL,EAR) Labs to be obtained as ordered Routine follow-up advised 9. Other abnormal glucose - A1C (BACK OFFICE) Labs to be obtained as ordered Routine follow-up advised 10. Leg swelling - furosemide (LASIX) 20 MG tablet; Take 1 tablet (20 mg total) by mouth daily. Dispense: 90 tablet;Refill: 3 Advised to continue medication as prescribed We discussed maintaining a heart healthy diet and getting some daily physical activity as tolerated Advised to follow-up with her specialist as scheduled Routine follow-up was advised with me, sooner if needed 11. Allergic rhinitis, unspecified seasonality, unspecified trigger - fluticasone propionate (FLONASE) 50 MCG/ACT nasal spray; 2 sprays by Each Nostril route daily. Dispense: 15.8 mL; Refill: 3 Advised to use medication as prescribed and to call for any continued issues or concerns 12. Need for immunization against influenza - [07363] Flu Vaccine, Split Virus, High Dose 65+ Years Vaccine given today in office. All questions/concerns were addressed. Vaccine information sheet given today. Orders Placed This Encounter COLLECT.CAPILLARY (FNGR,HEEL,EAR) A1C (BACK OFFICE) [25476] Flu Vaccine, Split Virus, High Dose 65+ Years furosemide (LASIX) 20 MG tablet fluticasone propionate (FLONASE) 50 MCG/ACT nasal spray Cannot display discharge medications since this is not an admission. I personally spent a total of 42 minutes on the day of the encounter. This includes lozd-ri-joid and arh-czot-ih-face time I provided on the day of the encounter & excludes time spent performing separately reportable services. PCP: ONDINA ATKINS 03/14/2024 TATION LEAD documented in this encounter Plan of Treatment Upcoming Encounters Date Type Department Care Team (Late st Contact Info) Description 09/06/2024 10:40 AM CDT Office Visit [facility] Family & Internal Medicine - [address] [phone] Bianca Aggarwal FNP [address] [place] [id number] documented as of this encounter Procedures Procedure Name Priority Date/Time Associated Diagnosis Comments COLLECT.CAPILLARY (FNGR,HEEL,EAR) Routine 03/08/2024 11:23 AM SANITATION LEAD Class 2 severe obesity due to excess calories with serious comorbidity and body mass index (BMI) of 35.0 to 35.9 in adult ([facility]) Family history of diabetes mellitus (DM) HEMOGLOBIN, GLYCOSYLATED Routine 03/08/2024 Class 2 severe obesity due to excess calories with serious comorbidity and body mass index (BMI) of 35.0 to 35.9 in adult ([facility]) Family history of diabetes mellitus (DM) Other abnormal glucose documented in this encounter Results * A1C (BACK OFFICE) (03/08/2024) HGB A1C 5.4 % [facility] 03/08/2024 Bianca [place] [facility] Final Result [facility] [address] [place] [address], documented in this encounter Visit Diagnoses Diagnosis Hypercholesterolemia- Primary Pure hypercholesterolemia Ventricular tachycardia ([facility]) Paroxysmal ventricular tachycardia Cardiac pacemaker in situ Atrial tachycardia ([facility]) Other specified cardiac dysrhythmias Atherosclerosis of arteries of extremities ([facility]) Atherosclerosis of [place] arteries of the extremities, unspecified Rheumatoid arthritis involving multiple sites with positive rheumatoid factor ([facility]) Class 2 severe obesity due to excess calories with serious comorbidity and body mass index (BMI) of 35.0 to 35.9 in adult ([facility]) Family history of diabetes mellitus (DM) Family history of diabetes mellitus Other abnormal glucose Leg swelling Swelling of limb Allergic rhinitis, unspecified seasonality, unspecified trigger Need for immunization against influenza Need for prophylactic vaccination and inoculation against influenza documented in this encounter Additional Health Concerns Assessment Noted Time PHQ-9 Depression Total Score: 5 02/15/20 23 10:50 AM CDT documented as of this encounter Care Teams Field Service Analyst Relationship Specialty Start Date End Date Bianca Aggarwal FNP [address] [place] [id number] PCP - General Nurse Practitioner Family 05/20/20 documented as of this encounter
--- OUTSIDE RECORDS SUMMARY | 2024-04-04 19:42 | XMS_ITS | Encounter Summary ---
Author Organization [facility] Address [address] [place] [address]. 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 Family & Internal Medicine - [address] [phone] Bianca Aggarwal FNP [address] [place] [id number] documented as of this encounter Visit Diagnoses Not on filedocumented in this encounter Additional Health Concerns Assessment Noted Time PHQ-9 Depression Total Score: 5 02/15/20 23 10:50 AM CDT documented as of this encounter Care Teams Company Dancer Relationship Specialty Start Date End Date Bianca Aggarwal FNP [address] [place], [place] [id number] PCP - General Nurse Practitioner Family 05/20/20 documented as of this encounter
--- OUTSIDE RECORDS SUMMARY | 2024-04-04 19:42 | XMS_ITS | Encounter Summary ---
Author Organization [facility] Address [address] [place] [address]. [place] [address] [place] [address] Care Team Providers Care Prepress Specialist Name Role Phone Claribelgoyo Bianca ONDINA Primary Care Provider [phone] Reason for Visit * Reason Comments Annual Annual exam Encounter Details Date Type Department Care Team (Late st Contact Info) Description 02/14/2023 10:00 AM CDT Office Visit [facility] Family & Internal Medicine [id number] [place] [address] Bianca Aggarwal FNP [facility] [place] [address] Annual (Annual exam) Social History Tobacco Use Types Packs/Day Years [...] on file 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 Gender Identity Not on file Sexual Orientation Not on file documented as of this encounter Last Filed Vital Signs Vital Sign Reading Time Taken Comments Blood Pressure 136/78 02/14/2023 11:13 AM CDT Pulse 71 02/14/2023 10:11 AM CDT Temperature 36.1 ??C (96.9 ??F) 02/14/2023 10:11 AM C DT Respiratory Rate 16 02/14/2023 10:11 AM CDT Oxygen Saturation 99% 02/14/2023 10:11 AM CDT Inhaled Oxygen Concentration - - Weight 102.5 kg (226 lb) 02/14/2023 10:11 AM CDT Height 170.2 cm (5' 7 ) 02/14/2023 10:11 AM CDT Body Mass Index 35.4 02/14/2023 10:11 AM CDT documented in this encounter Patient Instructions * Patient Instructions* ONDINA Pope - 02/14/2023 10:00 AM CDT Continue your current medications as prescribed and start the paroxetine 5 mg at night. Call if youhave any issues or concerns with this medicine. Maintain a heart healthy diet and get some daily physical activity as tolerated Call for any questions or concerns Follow-up with your specialist as scheduled and someone will call you about scheduling your screening colonoscopy with Dr. Jones. Follow-up at least every 6 months or sooner if needed, especially if the paroxetine is not working for your symptoms. documented in this encounter Progress Notes * Laurie Penny MA - 02/14/2023 10:00 AM CDTAddended by: LAURIE PENNY on: 02/23/2023 02:09 PM Modules accepted: Orders BEAUTICIAN * Laurie Penny MA - 02/14/2023 10:00 AM CDTAddended by: LAURIE PENNY on: 03/09/2023 01:26 PM Modules accepted: Orders BEAUTICIAN * ONDINA Pope - 02/14/2023 10:00 AM CDTSummary: chronic condition follow up Office Progress Note Reason for Visit: Annual (Annual exam) History of Present Illness: Brenna presents to the office for f/u of her chronic conditions hypertension/hypercholesterolemia/history of ventricular tachycardia/A- fib/syncopal episodes She has been seeing her call box wirer regularly. She was scheduled for a pacemaker in December but ended up not having this placed. She does have a loop recorder in place and is going to follow-up with her call box wirer for A-fib issues. She did have a negative cardiac cath last October,. She initially went to her call box wirer for syncopal episode she was having. She is still taking medication for her hypertension. She denies any current chest pain, shortness of breath, headaches, dizziness, or blurred vision presently. She did have some routine blood work done in December [facility] She has her bone density and screening mammogram scheduled Anxiety and depression Taking care of her sick with mental illness/dementia and this is caused her increased stressors. She has also been helping other family members and she feels overwhelmed and has mind racing. She denies ever being on anything for the symptoms. She denies any SI or HI presently. She is agreeable to trying something for her symptoms. Due for screening colonoscopy and does see Dr. Jones for this. Referral will be placed because she would like to continue her care with this provider. She is due for pneumonia vaccine and is agreeable to getting this today. She has a family history of diabetes and is reporting some weight gain and is wanting her blood sugar checked and so we will get an A1c. ROS: Review of Systems Constitutional: Negative for chills, diaphoresis, fever, malaise/fatigue and weight loss. HENT: Negative for congestion, ear discharge, ear pain, hearing loss, nosebleeds, sinus pain, sore throat and tinnitus. Eyes: Negative for blurred vision, double vision, [...] and polydipsia. Does not bruise/bleed easily. Psychiatric/Behavioral: Positive for depression. Negative for hallucinations, memory loss, substance abuse and suicidal ideas. The patient is nervous/anxious. The patient does not have insomnia. Medications: Current Outpatient Medications on File Prior to Visit Medication Sig alendronate (FOSAMAX) 35 MG tablet TAKE 1 TABLET BY MOUTH BY MOUTH EVERY WEEK Strength: 35 mg ALPRAZolam 0.25 MG tablet Take one tablet one hour prior to your MRI and, if not effective, you canmay take another tablet. You must have a delivery driver/supervisor to take this medciation amLODIPine (NORVASC) 10 MG tablet TAKE 1 TABLET BY MOUTH ONCE DAILY STOP TAKING 5MG TABLET atorvastatin (LIPITOR) 80 MG tablet TAKE 1 TABLET BY MOUTH NIGHTLY AT BEDTIME celecoxib 200 MG capsule Take 1 capsule (200 mg total) by mouth 2 (two) times daily. cyclobenzaprine (FLEXERIL) 5 MG tablet Take 1 tablet (5 mg total) by mouth 3 (three) times daily asneeded for Muscle Spasms. ELIQUIS 5 MG tablet Take 1 tablet (5 mg total) by mouth 2 (two) times daily. estradiol (ESTRACE) 0.5 MG tablet daily. estradiol (ESTRACE) 1 MG tablet Take 1.5 tablets (1.5 mg total) by mouth daily. Take 1.5 mg by mouth daily. fludrocortisone (FLORINEF) 0.1 MG tablet Take 1 tablet (0.1 mg total) by mouth 3 (three) times daily. furosemide 20 MG tablet Take 1 tablet (20 mg total) by mouth daily. lisinopril 40 MG tablet Take 1 tablet (40 mg total) by mouth daily. Magnesium 400 MG Tab Take 400 mg by mouth daily. magnesium oxide 400 (241.3 Mg) MG tablet Take 1 tablet (400 mg total) by mouth daily. meclizine 25 MG tablet Take 1 tablet (25 mg total) by mouth 3 (three) times daily as needed. methylPREDNISolone, MATTHEW, (MEDROL DOSEPAK) 4 MG tablet 6 TABLETS ON DAY ONE, 5 TABLETS DAY TWO, 4 TABLETS DAY THREE, 3 TABLETS DAY FOUR, 2 TABLETS DAY FIVE, AND 1 TABLET DAY SIX Multiple Vitamins-Minerals (PRESERVISION AREDS) capsule Take 1 capsule by mouth daily. omeprazole (PRILOSEC) 40 MG capsule Take 1 capsule (40 mg total) by mouth every morning. potassium chloride 20 MEQ packet Take 1 packet by mouth daily. sotalol 80 MG tablet Take 0.5 tablets (40 mg total) by mouth 2 (two) times daily. spironolactone 25 MG tablet Take 1 tablet (25 mg total) by mouth daily. tiZANidine HCl 2 MG Cap Take one capsule three times daily as needed for pain/muscle spasm. traMADol (ULTRAM) 50 MG tablet TAKE 1 TABLET BY MOUTH THREE TIMES DAILY vibegron (GEMTESA) 75 MG tablet Take 1 tablet (75 mg total) by mouth daily. No current facility-administered medications on file prior to visit. Allergies: Review of patient's allergies indicates: Allergen Reactions Flecainide Other (see comment) and Palpitations Morphine Nausea Only Medical History: Past Medical History: Diagnosis Date A-fib ([facility]/HCC) ([facility]) Hyperlipidemia Hypertension Ventricular tachyarrhythmia ([facility]/HCC) ([facility]) Surgical History: Past Surgical History: Procedure Laterality Date CHOLECYSTECTOMY HYSTERECTOMY KNEE ARTHROPLASTY Bilateral LOOP 1UL cardiac Social History: Social History Socioeconomic History Marital status: Tobacco Use Smoking status: Never Smokeless tobacco: Never Vaping Use Vaping Use: Never used Substance and Sexual Activity Alcohol use: Never [...] normal. Mouth/Throat: Mouth: Mucous membranes are moist. Eyes: General: Lids are normal. Vision grossly intact. Gaze aligned appropriately. Extraocular Movements: Extraocular movements intact. Conjunctiva/sclera: Conjunctivae normal. Neck: Thyroid: No thyroid mass, thyromegaly or thyroid tenderness. Vascular: Normal carotid pulses. No carotid bruit, hepatojugular reflux or JVD. Trachea: Trachea and phonation normal. Cardiovascular: Rate and Rhythm: Normal rate and regular rhythm. Heart sounds: Normal heart sounds. Pulmonary: Effort: Pulmonary effort is normal. No [...] or muscular tenderness. Normal range of motion. Lymphadenopathy: Cervical: No cervical adenopathy. Skin: General: [...] Cognition and memory normal. Judgment: Judgment normal. Recent Results (from the past 24 hour(s)) HEMOGLOBIN, GLYCOSYLATED Collection Time: 02/14/23 12:00 AM Result Value Ref Range HGB A1C 5.4 % Filed Vitals: 02/14/23 1011 02/14/23 1113 BP: (!) 159/81 136/78 Pulse: 71 Resp: 16 Temp: 96.9 ??F (36.1 ??C) SpO2: 99% Weight: 102.5 kg (226 lb) Height: 1.702 m (5' 7 ) Diagnoses/Impression: 1. Primary hypertension 2. Hypercholesterolemia 3. manager terminal (current) use of anticoagulants 4. Ventricular tachycardia (HHS/HCC) (CMS/HCC) 5. Atherosclerosis of arteries of extremities (CMS/HCC) 6. Rheumatoid arthritis involving multiple sites with positive rheumatoid factor (HHS/HCC) (CMS/HCC) 7. Syncope, unspecified syncope type 8. Encounter for screening colonoscopy Ambulatory referral to Gastroenterology (OTHER) 9. Anxiety and depression PARoxetine (PAXIL) 10 MG tablet 10. Family history of diabetes mellitus HEMOGLOBIN, GLYCOSYLATED 11. Need for prophylactic vaccination against Streptococcus pneumoniae (pneumococcus) [90455] Prevnar 20 (Pneumococcal) Recommendations and Plan: 1. Primary hypertension Advised to continue her current medications as prescribed and to monitor her blood pressure daily We discussed maintaining follow-up with her call box wirer as scheduled Advised to continue a heart healthy diet and get some daily physical activity as tolerated Routine follow-up advised, sooner if needed 2. Hypercholesterolemia Advised to continue her current medications as prescribed and to monitor her blood pressure daily We discussed maintaining follow-up with her call box wirer as scheduled Advised to continue a heart healthy diet and get some daily physical activity as tolerated Routine follow-up advised, sooner if needed 3. manager terminal (current) use of anticoagulants 4. Ventricular tachycardia (HHS/HCC) (CMS/HCC) Advised to continue her current medications as prescribed and to monitor her blood pressure daily We discussed maintaining follow-up with her call box wirer as scheduled Advised to continue a heart healthy diet and get some daily physical activity as tolerated Routine follow-up advised, sooner if needed 5. Atherosclerosis of arteries of extremities (CMS/HCC) Advised to continue her current medications as prescribed and to monitor her blood pressure daily We discussed maintaining follow-up with her call box wirer as scheduled Advised to continue a heart healthy diet and get some daily physical activity as tolerated Routine follow-up advised, sooner if needed 6. Rheumatoid arthritis involving multiple sites with positive rheumatoid factor (HHS/HCC) (CMS/HCC) Advised to continue medications as prescribed and to maintain follow-up with her specialist as scheduled 7. Syncope, unspecified syncope type Advised to continue current medications as prescribed and maintains follow-up with her cardiologistas scheduled Routine follow-up advised with me 8. Encounter for screening colonoscopy - Ambulatory referral to Gastroenterology (OTHER) Referral for GI placed for screening colonoscopy 9. Anxiety and depression - PARoxetine (PAXIL) 10 MG tablet; Take 0.5 tablets (5 mg total) by mouth every morning. Dispense: 90 tablet; Refill: 1 Advised to take half tab nightly to see if this helps with her anxiety and depression We discussed increasing her dose if she has no improvement in her symptoms over the next couple weeks I advised her to follow-up with me in 1 month, sooner if needed 10. Family history of diabetes mellitus - HEMOGLOBIN, GLYCOSYLATED Labs to be obtained as ordered 11. Need for prophylactic vaccination against Streptococcus pneumoniae (pneumococcus) - [07255] Prevnar 20 (Pneumococcal) Vaccine given today in office. All questions/concerns were addressed. Vaccine information sheet given today. Orders Placed This Encounter HEMOGLOBIN, GLYCOSYLATED Ambulatory referral to Gastroenterology (OTHER) [19602] Prevnar 20 (Pneumococcal) PARoxetine (PAXIL) 10 MG tablet Cannot display discharge medications since this is not an admission. I personally spent a total of 45 minutes on the day of the encounter. This includes [id number] and cyg-sjig-bg-face time I provided on the day of the encounter & excludes time spent performing separately reportable services. PCP: ONDINA ATKINS 02/14/2023 documented in this encounter Plan of Treatment Upcoming Encounters Date Type Department Care Team (Late st Contact Info) Description 09/06/2024 10:40 AM CDT Office Visit [facility] Family & Internal Medicine - [address] [address] Bianca Aggarwal FNP [address] [place] [address] documented as of this encounter Procedures Procedure Name Priority Date/Time Associated Diagnosis Comments HEMOGLOBIN, GLYCOSYLATED Routine 02/14/2023 Family history of diabetes mellitus documented in this encounter Results * HEMOGLOBIN, GLYCOSYLATED (02/14/2023) HGB A1C 5.4 % -[facility] 02/14/2023 us Bianca [place] [facility] Final Result [facility] [address] [place] [address], documented in this encounter Visit Diagnoses Diagnosis Primary hypertension- Primary Unspecified essential hypertension Hypercholesterolemia Pure hypercholesterolemia long-term (current) use of anticoagulants Long-term (current) use of anticoagulants Ventricular tachycardia (CMS/HCC HHS/HCC) Paroxysmal ventricular tachycardia Atherosclerosis of arteries of extremities (CMS/HCC) Atherosclerosis of [place] arteries of the extremities, unspecified Rheumatoid arthritis involving multiple sites with positive rheumatoid factor (CMS/HCC HHS/HCC) Syncope, unspecified syncope type Encounter for screening colonoscopy Special screening for malignant neoplasms, colon Anxiety and depression Dysthymic disorder Family history of diabetes mellitus Need for prophylactic vaccination against Streptococcus pneumoniae (pneumococcus) Need for prophylactic vaccination against streptococcus pneumoniae (pneumococcus) History of colon polyps Personal history of colonic polyps documented in this encounter Additional Health Concerns Assessment Noted Time PHQ-9 Depression Total Score: 5 02/15/20 23 10:50 AM CDT documented as of this encounter Care Teams Prepress Specialist Relationship Specialty Start Date End Date Bianca Aggarwal FNP [facility] [place] [address] PCP - General Nurse Practitioner Family 05/20/20 documented as of this encounter
--- OUTSIDE RECORDS SUMMARY | 2024-04-04 19:42 | XMS_ITS | Encounter Summary ---
Author Organization [facility] Address [address] [place] [address]. 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 Gender Identity Not on file Sexual Orientation Not on file documented as of this encounter Plan of Treatment Upcoming Encounters Date Type Department Care Team (Late st Contact Info) Description 09/06/2024 10:40 AM CDT Office Visit [facility] Family & Internal Medicine - [address] [address] Bianca Aggarwal FNP [address] [place] [address] documented as of this encounter Visit Diagnoses Not on filedocumented in this encounter Additional Health Concerns Assessment Noted Time PHQ-9 Depression Total Score: 5 02/15/20 23 10:50 AM CDT documented as of this encounter Care Teams Auricular Acupuncturist Relationship Specialty Start Date End Date Bianca Aggarwal FNP [address] [place], [place] [phone] PCP - General Nurse Practitioner Family 05/20/20 documented as of this encounter
--- OUTSIDE RECORDS SUMMARY | 2024-04-04 19:42 | XMS_ITS | Encounter Summary ---
Author Organization [facility] Address [address] [place] [address]. [place] [address] [place] [address] Care Team Providers Care Global Professional Name Role Phone Bianca Aggarwal ONDINA Primary Care Provider [phone] Reason for Visit * Reason Comments Allied Health Visit Flu vaccine Encounter Details Date Type Department Care Team (Latest Contact Info) Description 02/10/2023 1:00 PM CDT Allied Health/Nurse Visit [facility] Family & Internal [address] [address] Bianca Aggarwal FNP [address] [place] [address] Allied Health Visit (Flu vaccine) Social History Tobacco Use Types Packs/Day Years [...] on file 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 Gender Identity Not on file Sexual Orientation Not on file documented as of this encounter Plan of Treatment Upcoming Encounters Date Type Department Care Team ( Contact Info) Description 09/06/2024 10:40 AM CDT Office Visit [facility] Family & Internal [address] [place] [address] Bianca Aggarwal FNP [address] [place] [address] documented as of this encounter Visit Diagnoses Diagnosis Need for prophylactic vaccination and inoculation against influenza- Primary documented in this encounter Additional Health Concerns Assessment Noted Time PHQ-9 Depression Total Score: 0 01/28/20 22 1:07 PM CDT documented as of this encounter Care Teams Global Professional Relationship Specialty Start Date End Date Bianca Aggarwal FNP [address] [place] [address] PCP - General Nurse Practitioner Family 05/20/20 documented as of this encounter
--- OUTSIDE RECORDS SUMMARY | 2024-04-04 19:42 | XMS_ITS | Encounter Summary ---
Author Organization [facility] Address [address] [place] [address]. 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 Gender Identity Not on file Sexual Orientation Not on file documented as of this encounter Plan of Treatment Upcoming Encounters Date Type Department Care Team (Late st Contact Info) Description 09/06/2024 10:40 AM CDT Office Visit [facility] Family & Internal Medicine - [address] [address] Bianca Aggarwal FNP [address] [place] [address] documented as of this encounter Visit Diagnoses Not on filedocumented in this encounter Additional Health Concerns Assessment Noted Time PHQ-9 Depression Total Score: 5 02/15/20 23 10:50 AM CDT documented as of this encounter Care Teams Dock Guard Relationship Specialty Start Date End Date Bianca Aggarwal FNP [address] [place], [place] [phone] PCP - General Nurse Practitioner Family 05/20/20 documented as of this encounter
--- OUTSIDE RECORDS SUMMARY | 2024-04-04 19:42 | XMS_ITS | Encounter Summary ---
Author Organization [facility] Address [address] [place] [address]. 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 Gender Identity Not on file Sexual Orientation Not on file documented as of this encounter Plan of Treatment Upcoming Encounters Date Type Department Care Team (Late st Contact Info) Description 09/06/2024 10:40 AM CDT Office Visit [facility] Family & Internal Medicine - [address] [phone] Bianca Aggarwal FNP [address] [place] [address] documented as of this encounter Visit Diagnoses Not on filedocumented in this encounter Additional Health Concerns Assessment Noted Time PHQ-9 Depression Total Score: 5 02/15/20 23 10:50 AM CDT documented as of this encounter Care Teams Tester Equipment Relationship Specialty Start Date End Date Bianca Aggarwal FNP [address] [place], [place] [phone] PCP - General Nurse Practitioner Family 05/20/20 documented as of this encounter
--- OUTSIDE RECORDS SUMMARY | 2024-04-04 19:42 | XMS_ITS | Encounter Summary ---
Author Organization [facility] Address [address] [place] [address]. 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[employer] Gender Identity Not on file Sexual Orientation Not on file documented as of this encounter Plan of Treatment Upcoming Encounters Date Type Department Care Team (Late st Contact Info) Description 09/06/2024 10:40 AM CDT Office Visit [facility] Family & Internal Medicine - [address] [place] [address] Bianca Aggarwal FNP [address] [place] [address] documented as of this encounter Visit Diagnoses Not on filedocumented in this encounter Additional Health Concerns Assessment Noted Time PHQ-9 Depression Total Score: 0 01/28/20 22 1:07 PM CDT documented as of this encounter Care Teams Service Sprinkler Helper Relationship Specialty Start Date End Date Bianca Aggarwal FNP [address] [place], [place] [phone] PCP - General Nurse Practitioner Family 05/20/20 documented as of this encounter
--- OUTSIDE RECORDS SUMMARY | 2024-04-04 19:42 | XMS_ITS | Encounter Summary ---
Author Organization [facility] Address [address] [place] [address]. 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 [place] [address] documented as of this encounter Visit Diagnoses Not on filedocumented in this encounter Additional Health Concerns Assessment Noted Time PHQ-9 Depression Total Score: 5 02/15/20 10:50 AM CDT documented as of this encounter Care Teams Maintenance And Custodian Supervisor Relationship Specialty Start Date End Date Bianca Aggarwal FNP [address] [place] [address] PCP - General Nurse Practitioner Family 05/20/20 documented as of this encounter
--- OUTSIDE RECORDS SUMMARY | 2024-04-04 19:42 | XMS_ITS | Encounter Summary ---
Author Organization [facility] Address [address] [place] [address]. 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 Gender Identity Not on file Sexual Orientation Not on file documented as of this encounter Plan of Treatment Upcoming Encounters Date Type Department Care Team ([facility] Contact Info) Description 09/06/2024 10:40 AM CDT Office Visit [facility] Medical Group Family & Internal Medicine [id number] [place] [address] Bianca Aggarwal FNP [address] [place] [address] documented as of this encounter Procedures Procedure Name Priority Date/Time Associated Diagnosis Comments PROCEDURE GENERIC (SCAN ORDER) 11/25/2022 documented in this encounter Results * PROCEDURE GENERIC (11/25/2022) 11/25/2022 us Doc Med Group Scanned SCANNING Final Resu lt documented in this encounter Visit Diagnoses Not on filedocumented in this encounter Additional Health Concerns Assessment Noted Time PHQ-9 Depression Total Score: 0 01/28/20 22 1:07 PM CDT documented as of this encounter Care Teams Profile Saw Setup Operator Relationship Specialty Start Date End Date Bianca Aggarwal FNP [address] [place] [id number] PCP - General Nurse Practitioner Family 05/20/20 documented as of this encounter
--- OUTSIDE RECORDS SUMMARY | 2024-04-04 19:42 | XMS_ITS | Encounter Summary ---
Author Organization [facility] Address [address] [place] [address]. 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 Gender Identity Not on file Sexual Orientation Not on file documented as of this encounter Plan of Treatment Upcoming Encounters Date Type Department Care Team (Late st Contact Info) Description 09/06/2024 10:40 AM CDT Office Visit [facility] Medical Group Family & Internal Medicine - [place] [address] [place] [address] Bianca Aggarwal FNP [address] [place] [address] documented as of this encounter Procedures Procedure Name Priority Date/Time Associated Diagnosis Comments OUTSIDE PT/INR (SCAN ORDER) 12/24/2022 OUTSIDE LAB (SCAN ORDER) 12/24/2022 OUTSIDE LAB (SCAN ORDER) 12/24/2022 OUTSIDE LAB (SCAN ORDER) 12/24/2022 documented in this encounter Results * OUTSIDE LAB (SCAN) (12/24/2022) 12/24/2022 us Doc Med [facility] Scanned SCANNING Final Resu lt * OUTSIDE LAB (SCAN) (12/24/2022) 12/24/2022 [facility] Scanned SCANNING Final Resu lt * OUTSIDE LAB (SCAN) (12/24/2022) 12/24/2022 [facility] Scanned SCANNING Final Resu lt * OUTSIDE PT/INR (SCAN) (12/24/2022) 12/24/2022 [facility] Scanned SCANNING Final Resu lt documented in this encounter Visit Diagnoses Not on filedocumented in this encounter Additional Health Concerns Assessment Noted Time PHQ-9 Depression Total Score: 0 01/28/20 22 1:07 PM CDT documented as of this encounter Care Teams Locomotive Engineer Relationship Specialty Start Date End Date Bianca Aggarwal FNP [address] [place] [id number] PCP - General Nurse Practitioner Family 05/20/20 documented as of this encounter
--- OUTSIDE RECORDS SUMMARY | 2024-04-04 19:42 | XMS_ITS | Encounter Summary ---
Author Organization [facility] Address [address] [place] [address]. 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 Gender Identity Not on file Sexual Orientation Not on file documented as of this encounter Plan of Treatment Upcoming Encounters Date Type Department Care Team (Late st Contact Info) Description 09/06/2024 10:40 AM CDT Office Visit [facility] Medical Group Family & Internal Medicine - [address] [phone] Bianca Aggarwal FNP [address] [place] [address] documented as of this encounter Visit Diagnoses Not on filedocumented in this encounter Additional Health Concerns Assessment Noted Time PHQ-9 Depression Total Score: 5 02/15/20 23 10:50 AM CDT documented as of this encounter Care Teams Market Risk Specialist Relationship Specialty Start Date End Date Bianca Aggarwal FNP [address] [place], [place] [phone] PCP - General Nurse Practitioner Family 05/20/20 documented as of this encounter
--- OUTSIDE RECORDS SUMMARY | 2024-04-04 19:42 | XMS_ITS | Encounter Summary ---
Author Organization [facility] Address [address] [place] [address]. 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[employer] Gender Identity Not on file Sexual Orientation Not on file documented as of this encounter Plan of Treatment Upcoming Encounters Date Type Department Care Team (Late Contact Info) Description 09/06/2024 10:40 AM CDT Office Visit [facility] Medical Group Family & Internal Medicine - [place] [id number] [place] [address] Bianca Aggarwal FNP [facility] [place] [address] documented as of this encounter Procedures Procedure Name Priority Date/Time Associated Diagnosis Comments 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 PROCEDURE GENERIC (SCAN ORDER) 11/26/2022 documented in this encounter Results * PROCEDURE GENERIC (11/26/2022) 11/26/2022 us Doc Med [facility] Scanned SCANNING Final Resu lt * 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
--- OUTSIDE RECORDS SUMMARY | 2024-04-04 19:42 | XMS_ITS | Encounter Summary ---
Author Organization [facility] Address Formerly [facility] [place] [address] [place] [address] Care Team Providers Care Automatic Print Developer Name Role Phone Chloe House Primary Care Provider [phone] Reason for Referral * Imaging (Routine) - Authorized Specialty Diagnoses / Procedures Referred By Janice vergara Referred To Contact RADIOLOGY Diagnoses Postmenopausal Osteopenia, unspecified location Procedures BONE DENSITY/DEXA BONE DENSITY/DEXA Chloe House FNP [address] [place] [address] Phone: tel: fax: [facility] [address] [facility] [address] [place] [address] Phone: tel: fax: Referral ID Status Reason Start Date Expiration Date V isits Requested Visits Authorized [id number] Authorized 12/14/2023 01/12/2025 1 1 * Consultation (Routine) - New Request Specialty Diagnoses / Procedures Referred By Janice vergara Referred To Contact ORTHOPAEDICS Diagnoses Left hip pain Procedures OFFICE/OUTPATIENT NEW LOW MDM 30-44 MINUTES OFFICE/OUTPT VISIT,NEW,LEVL IV OFFICE/OUTPT VISIT,NEW,LEVL V OFFICE/OUTPT VISIT,EST,LEVL III OFFICE/OUTPT VISIT,EST,LEVL IV OFFICE/OUTPT VISIT,EST,LEVL V Chloe House FNP [address] [place] [address] Phone: tel: fax: Renaldo Curry PA [address] [place] [address] Phone: tel: fax: Referral ID Status Reason Start Date Expiration Date Visits Requested Visits Authorized [id number] New Request Specialty Services 12/14/2023 01/14/2025 1 1 Reason for Visit * Reason Comments Pain Hip/ Limb Primarily left side. The patient states she has pain from her toes to her hip. The patient states she has a locking feeling upon standing. Other Paola- cardiolog y Shipro- pacemaker provider. Encounter Details Date Type Department Care Team (Late st Contact Info) Description 12/14/2023 10:00 AM CDT Office Visit [facility] Family & Internal Medicine [address] [phone] Chloe House FNP [address] [place] [id number] Pain Hip/ Limb (Primarily left side. The patient states she has pain from her toes to her hip. The patient states she has a locking feeling upon standing. ); Other (Paola- cardiology /Shipro- pacemaker provider. 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[employer] Gender Identity Not on file Sexual Orientation Not on file documented as of this encounter Last Filed Vital Signs Vital Sign Reading Time Taken Comments Blood Pressure 119/64 12/14/2023 10:17 AM CDT Pulse 73 12/14/2023 10:17 AM CDT Temperature 36.6 ??C (97.9 ??F) 12/14/2023 1 0:17 AM CDT Respiratory Rate 16 12/14/2023 10:1 7 AM CDT Oxygen Saturation 98% 12/14/2023 10: 17 AM CDT Inhaled Oxygen Concentration - - Weight 102.9 kg (226 lb 14.4 oz) 2023 10:17 AM CDT Height 170.2 cm (5' 7 ) 12/14/2023 10:1 7 AM CDT Body Mass Index 35.54 12/14/2023 10:17 AM CDT documented in this encounter Patient Instructions * Patient Instructions* ONDINA Pope - 12/14/2023 10:00 AM CDT Continue your current medications as prescribed Maintain follow-up with your meat cooler as scheduled Continue working on a heart healthy diet and getting some daily physical activity as tolerated Call for any questions or concerns Follow-up routinely at least every 6 months or sooner if needed documented in this encounter Progress Notes * ONDINA Pope - 12/14/2023 10:00 AM CDTAddended by: CHLOE HOUSE on: 12/14/2023 06:54 PM Modules accepted: Orders * Sima Kiser MA - 12/14/2023 10:00 AM CDTAddended by: SIMA KISER on: 12/16/2023 09:40 AM Modules accepted: Orders * ONDINA Pope - 12/14/2023 10:00 AM CDTSummary: left hip and leg pain for over 3 months, Office Progress Note Reason for Visit: Pain Hip/ Limb (Primarily left side. The patient states she has pain from her toes to her hip. The patient states she has a locking feeling upon standing. ) and Other ([facility]- cardiology /Jovana- pacemaker provider. ) History of Present Illness: Brenna presents to the office for c/o left hip and leg pain, chronic Atrial tachycardia/A-fib/bradycardia Syncopal episodes and was noted to have bradycardia and Afib as well and had to have a pacemaker placed. Since has had couple surgeries due to pacemaker not working effectively. She denies any cp, sob, iniguez, dizziness, iniguez, or syncopal episodes since October. She has a follow-up with her meat cooler in the near future. She did have some blood work done when she was getting the syncopal episodes evaluated and getting her pacemaker placed. BMI 35 She is wanting to see if we can start weight loss medications and this might help with her chronic pain. We discussed that we need to wait and discuss this at another visit because this is an acute visit. And she needs to be cleared through cardiology. She reports she will discuss this with her meat cooler at the next appointment. We will hold off any treatment for weight loss. We discussed making sure she is watching what she eats and eating a heart healthy diet and getting some daily physical activity as tolerated She reports left hip and leg pain that started around 3 months ago. 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 She has been seeing a chiropractor who has been adjusting her and her right side has improved but her left side is still causing her issues. She has been taking Celebrex, tramadol, and tizanidine as needed with some relief. She denies any known injury but reports that her hip locks upwhen she stands up and it takes her minutes to work it out and then she walks with a limp. We discussed talking to her meat cooler about the atorvastatin that she is taking to see if this might be causing her cramping. Reports that she wanted to get in with Dr. Diez but was advised that she needs to go through her PCP first for imaging and referral She usually gets her tramadol from another provider but we had to fill this recently because that provider is out of the office. We will update her UDS and CSA per policy so we can continue this if needed. ROS: Review of Systems Constitutional: Negative for [...] flank pain, frequency, hematuria and urgency. Musculoskeletal: Positive for joint pain. Negative for back pain, falls, myalgias and neck pain. Skin: Negative for [...] take another tablet. 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 celecoxib 200 MG capsule Take 1 capsule (200 mg total) by mouth 2 (two) times daily. ELIQUIS 5 MG tablet Take 1 tablet (5 mg total) by mouth 2 (two) times daily. estradiol (ESTRACE) 1 MG tablet Take 1.5 tablets (1.5 mg total) by mouth daily. Take 1.5 mg by mouth daily. furosemide 20 MG tablet Take 1 tablet (20 mg total) by mouth daily. lisinopril (PRINIVIL) 10 MG tablet Take 1 tablet (10 mg total) by mouth daily. Magnesium 400 MG Tab Take 400 mg by mouth daily. meclizine 25 MG tablet Take 1 tablet (25 mg total) by mouth 3 (three) times daily as needed. metoprolol succinate ER (TOPROL-XL) 25 MG 24 [...] History: Past Medical History: Diagnosis Date A-fib ([facility]) Hyperlipidemia Hypertension PVD (peripheral vascular disease) ([facility]) Venous insufficiency Ventricular tachyarrhythmia ([facility]) Surgical History: Past Surgical History: Procedure Laterality [...] membranes are moist. Pharynx: Oropharynx is clear. Uvula midline. Eyes: General: Lids are normal. Vision grossly [...] or muscular tenderness. Normal range of motion. Left hip: Tenderness present. No deformity, lacerations, bony tenderness or crepitus. Normal range of motion. Normal strength. Left upper leg: No swelling, edema, deformity, lacerations, tenderness or bony tenderness. Right lower leg: No edema. Left lower leg: Normal. No edema. Lymphadenopathy: Cervical: No cervical adenopathy. Skin: General: Skin is warm and dry. Capillary Refill: Capillary refill takes less than 2 seconds. Findings: No rash. Neurological: General: No focal deficit present. Mental Status: She is alert and oriented to person, place, and time. Cranial Nerves: No cranial nerve deficit. Sensory: Sensation is intact. No sensory deficit. Motor: Motor function is intact. Coordination: Coordination is intact. Coordination normal. Gait: Gait abnormal (Limping gait due to pain). Psychiatric: Attention and Perception: Attention and perception normal. Mood and Affect: Mood and affect normal. Speech: Speech normal. Behavior: Behavior normal. Behavior is cooperative. Thought Content: Thought content normal. Cognition and Memory: Cognition and memory normal. Judgment: Judgment normal. Details Routing Result Notes 12/14/2023 11:31 AM - User, [email or web address] Result Info Result Status Authenticating Provider Date/Time Final result JULIAN SINCLAIR V 12/14/2023 11:30 AM Study Result Narrative & Impression [facility] [place] [address] PROCEDURE: XR HIP LT 2V HISTORY: Left hip pain. COMPARISON: None. TECHNIQUE: AP and lateral views of the left hip were obtained. FINDINGS: There is no acute fracture or osseous malalignment identified. Minimal degenerative changes of the left hip joint. Degenerative changes of the visualized lower lumbar spine. IMPRESSION: 1. No acute osseous abnormality is identified. 2. Minimal degenerative changes of the left hip joint. 3. Degenerative changes of the lower lumbar spine. Referred By: Interpreted By: Julian Sinclair MD, 12/14/2023 11:28 AM Filed Vitals: 12/14/23 1017 BP: 119/64 Pulse: 73 Resp: 16 Temp: 97.9 ??F (36.6 ??C) TempSrc: Skin SpO2: 98% Weight: 102.9 kg (226 lb 14.4 oz) Height: 1.702 m (5' 7 ) Diagnoses/Impression: 1. Left hip pain XR HIP LT 2V MG/PCCL UDS W CONF Ambulatory referral to Orthopedics ([facility]) methylPREDNISolone, MATTHEW, (MEDROL DOSEPAK) 4 MG tablet 2. Left leg pain MG/PCCL UDS W CONF methylPREDNISolone, MATTHEW, (MEDROL DOSEPAK) 4 MG tablet 3. Cardiac pacemaker in situ 4. Palpitations 5. Hx of ventricular tachycardia 6. History of atrial fibrillation 7. Encounter for long-term (current) use of medications MG/PCCL UDS W CONF 8. Class 2 severe obesity due to excess calories with serious comorbidity and body mass index (BMI)of 35.0 to 35.9 in adult ([facility]) 9. Postmenopausal BONE DENSITY/DEXA 10. Osteopenia, unspecified location BONE DENSITY/DEXA Recommendations and Plan: 1. Left hip pain - XR HIP LT 2V; Future - MG/PCCL UDS W CONF; Future - MG/PCCL UDS W CONF - Ambulatory referral to Orthopedics ([facility]) Imaging noted some minimal degenerative changes of the left hip joint and degenerative changes of her lower spine As discussed we will place an Ortho referral She will continue her current medications as prescribed and as needed UDS and CSA were updated per policy I we will send out a steroid Dosepak for her to take to see if this helps with some of her pain. Advised to follow-up routinely for her other issues and concerns, sooner if needed 2. Left leg pain - MG/PCCL UDS W CONF; Future - MG/PCCL UDS W CONF Imaging noted some minimal degenerative changes of the left hip joint and degenerative changes of her lower spine As discussed we will place an Ortho referral She will continue her current medications as prescribed and as needed UDS and CSA were updated per policy I we will send out a steroid Dosepak for her to take to see if this helps with some of her pain. Advised to follow-up routinely for her other issues and concerns, sooner if needed 3. Cardiac pacemaker in situ Advised to maintain follow-up with her specialist as scheduled We discussed making sure to take her medications as prescribed and monitor and maintain a heart healthy diet and get some daily physical activity as tolerated Routine, 6-month follow-up advised with me, sooner if needed 4. Palpitations Advised to maintain follow-up with her specialist as scheduled We discussed making sure to take her medications as prescribed and monitor and maintain a heart healthy diet and get some daily physical activity as tolerated Routine, 6-month follow-up advised with me, sooner if needed 5. Hx of ventricular tachycardia Advised to maintain follow-up with her specialist as scheduled We discussed making sure to take her medications as prescribed and monitor and maintain a heart healthy diet and get some daily physical activity as tolerated Routine, 6-month follow-up advised with me, sooner if needed 6. History of atrial fibrillation Advised to maintain follow-up with her specialist as scheduled We discussed making sure to take her medications as prescribed and monitor and maintain a heart healthy diet and get some daily physical activity as tolerated Routine, 6-month follow-up advised with me, sooner if needed 7. Encounter for long-term (current) use of medications - MG/PCCL UDS W CONF; Future - MG/PCCL UDS W CONF 8. Class 2 severe obesity due to excess calories with serious comorbidity and body mass index (BMI)of 35.0 to 35.9 in adult ([facility]) We discussed holding off on any weight loss treatments until she is cleared by her meat cooler. She will make a follow-up appointment once he is cleared her to start a medication for weight loss. We also discussed calling her insurance to see if they cover any weight loss medications 9. Postmenopausal - BONE DENSITY/DEXA; Future Advised to continue vitamin D and calcium supplements Imaging to be obtained as ordered Routine follow-up advised 10. Osteopenia, unspecified location - BONE DENSITY/DEXA; Future Advised to continue vitamin D and calcium supplements Imaging to be obtained as ordered Routine follow-up advised There are other unrelated non-urgent complaints, but due to the busy schedule and the amount of time I've already spent with her, time does not permit me to address these routine issues at today's visit. I've requested another appointment to review these additional issues. Orders Placed This Encounter XR HIP LT 2V MG/PCCL UDS W CONF Ambulatory referral to Orthopedics ([facility]) metoprolol succinate ER (TOPROL-XL) 25 MG 24 hr tablet atorvastatin (LIPITOR) 40 MG tablet lisinopril (PRINIVIL) 10 MG tablet methylPREDNISolone, MATTHEW, (MEDROL DOSEPAK) 4 MG tablet BONE DENSITY/DEXA Cannot display discharge medications since this is not an admission. I personally spent a total of 40 minutes on the day of the encounter. This includes vhwr-vh-thpt and jhl-dnkq-un-face time I provided on the day of the encounter & excludes time spent performing separately reportable services. PCP: ONDINA ATKINS 12/14/2023 * Sima Kiser MA - 12/14/2023 10:00 AM CDT Patient stated had original BMD order sent to [facility] but they cannot get her in till April. Would like order fax to [facility] instead. Order changed and sent to [facility]. Patient informed to make sure previous BMD films are sent to [facility] for comparisons. jc Gupta documented in this encounter Plan of Treatment Upcoming Encounters Date Type Department Care Team (Late st Contact Info) Description 09/06/2024 10:40 AM CDT Office Visit [facility] Family & Internal Medicine [address] [phone] Chloe House FNP [address] [place] [phone] Scheduled Referrals Name Type Priority Associated Diagnoses Orde r Schedule Ambulatory referral to Orthopedics ([facility]) Referral Routine Left hip pain Ordered: 12/14/2023 documented as of this encounter Procedures Procedure Name Priority Date/Time Associated Diagnosis Comments BONE DENSITY/DEXA Routine 12/30/2023 12: 00 AM CDT Postmenopausal Osteopenia, unspecified location MG/PCCL UDS W CONF Routine 12/14/2023 11 :09 AM CDT Left hip pain Left leg pain Encounter for long-term (current) use of medications documented in this encounter Results * BONE DENSITY/DEXA (12/30/2023 12:00 AM CDT) Anatomical Region Laterality Modality Bone Bone Density 12/30/2023 us Chloe House CLOTH COLORER DEXA Final Result * XR HIP LT 2V (12/14/2023 11:09 AM CDT) Anatomical Region Laterality Modality Hip Radiographic Verito ging 12/14/2023 11:0 1 AM CDT Narrative 12/14/2023 11:30 AM CDT [facility] Family and Internal Medicine [address] ??[id number] PROCEDURE: ??XR HIP LT 2V HISTORY: Left hip pain. ?? COMPARISON: ??None. TECHNIQUE: ??AP and lateral views of the left hip were obtained. FINDINGS: ?? There is no acute fracture or osseous malalignment identified. ??Minimal degenerative changes of the left hip joint. ??Degenerative changes of the visualized lower lumbar spine. IMPRESSION: 1. ??No acute osseous abnormality is identified. 2. ??Minimal degenerative changes of the left hip joint. 3. ??Degenerative changes of the lower lumbar spine. Referred By: ?? Interpreted By: Julian Sinclair MD, 12/14/2023 11:28 AM Procedure Note Julian Sinclari MD - 12/14/2023 [facility] [place] [address] PROCEDURE: XR HIP LT 2V HISTORY: Left hip pain. COMPARISON: None. TECHNIQUE: AP and lateral views of the left hip were obtained. FINDINGS: There is no acute fracture or osseous malalignment identified. Minimaldegenerative changes of the left hip joint. Degenerative changes of thevisualized lower lumbar spine. IMPRESSION: 1. No acute osseous abnormality is identified. 2. Minimal degenerative changes of the left hip joint. 3. Degenerative changes of the lower lumbar spine. Referred By: Interpreted By: Julian Sinclair MD, 12/14/2023 11:28 AM Chloe House CLOTH COLORER GENERAL IMAGING Final Result * (ABNORMAL) MG/PCCL UDS W CONF (12/14/2023 11:09 AM CDT) RESULT SUMMARY [facility] Comment: ?Prescribed ?Prescribed ?Not Prescribed ?Consistent ?Inconsistent ?Inconsistent ?Tramadol ? PRESCRIBED DRUG 1 (U) Tramadol [facility] [place] SCREEN (U) NEGATIVE <0.5 ng/mL [facility] [place] MORPHINE (U) NEGATIVE <10 ng/mL [facility] [place] DESMETHYLTRAMADOL (U) >87604(H) <100 ng/mL [facility] [place] DESMETHYLTRAMADOL MEDMATCH (U) CONSISTENT [facility] [place] TRAMADOL (U) >98999(H) <100 ng/mL [facility] [place] TRAMADOL (MEDMATCH) CONSISTENT [facility] TRAMADOL COMMENTS [facility] Comment:See Tramadol Notes, LDT Notes AMPHETAMINES PM NEGATIVE <500 ng/mL [facility] [place] BARBITURATES PM (U) NEGATIVE <300 ng/mL [facility] [place] BENZODIAZEPINES PM (U) NEGATIVE <100 ng/mL [facility] [place] COCAINE METABOLITE PM (U) NEGATIVE <150 ng/mL [facility] [place] MARIJUANA METABOLITE PM (U) NEGATIVE <20 ng/mL [facility] [place] METHADONE PM (U) NEGATIVE <100 ng/mL [facility] [place] OPIATES PM (U) NEGATIVE <100 ng/mL [facility] [place] OXYCODONE PM (U) NEGATIVE <100 ng/mL [facility] [place] CREATININE RANDOM (U) 154.1 > or = 20.0 mg/dL [facility] [place] pH PM (U) 5.0 4.5 - 9.0 [email or web address] CEL[facility] OXIDANT NEGATIVE <200 mcg/mL [facility] Note [facility] Comment: This drug testing is for medical treatment only. Analysis was performed as non-forensic testing and these results should be used only by healthcare providers to render diagnosis or treatment, or to monitor progress of medical conditions. Tramadol Notes: Tramadol, Desmethyltramadol detected is consistent with the use of the drug Tramadol. LDT Notes: Confirmation tests were developed and their analytical performance characteristics have been determined by [facility]. It has not been cleared or approved by the FDA. This assay has been validated pursuant to the CLIA regulations and is used for clinical purposes. medMATCH(R) enables providers to identify if drug use is consistent or inconsistent with a corresponding prescribed medication(s) list. Healthcare Providers needing Interpretation assistance, please contact us at [phone] ( ) M-F, 8am to 10pm EST URINE SPECIMEN / Unknown 12/14/2023 11:09 AM CDT 12/15/2023 3:12 AM CDT Narrative Resulting Agency Comment Performing Organization Information: ?Site ID: ?Name: [facility] ?Address: [address] [place] [id number] ?Director: Raulito Noland ?Site ID: [id number] ?Name: [facility] ?Address: [address] [place] [id number] ?Director: Pancho Bar MD Chloe House CLOTH COLORER URINE ORDERABLES Final Result [facility] [id number] [address] [place] [address], [facility] [place] [address] [place] [id number] documented in this encounter Visit Diagnoses Diagnosis Left hip pain- Primary Pain in joint, pelvic region and thigh Left leg pain Pain in limb Cardiac pacemaker in situ Palpitations Hx of ventricular tachycardia Personal history of other diseases of circulatory system History of atrial fibrillation Personal history of other diseases of circulatory system Encounter for long-term (current) use of medications Encounter for long-term (current) use of other medications Class 2 severe obesity due to excess calories with serious comorbidity and body mass index (BMI) of 35.0 to 35.9 in adult ([facility]) Postmenopausal Asymptomatic postmenopausal status (age-related) (natural) Osteopenia, unspecified location documented in this encounter Additional Health Concerns Assessment Noted Time PHQ-9 Depression Total Score: 5 10/30/20 23 10:50 AM CDT documented as of this encounter Care Teams Automatic Print Developer Relationship Specialty Start Date End Date Chloe House FNP [address] [place] [phone] PCP - General Nurse Practitioner Family 05/20/20 documented as of this encounter
--- OUTSIDE RECORDS SUMMARY | 2024-04-04 19:42 | XMS_ITS | Encounter Summary ---
Author Organization [facility] Address [address] [place] [address] 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 Gender Identity Not on file Sexual Orientation Not on file documented as of this encounter Plan of Treatment Upcoming Encounters Date Type Department Care Team (Late st Contact Info) Description 09/06/2024 10:40 AM CDT Office Visit [facility] Family & Internal Medicine - [place] [address] [place] [address] Bianca Aggarwal FNP [address] [place] [phone] documented as of this encounter Visit Diagnoses Not on filedocumented in this encounter Additional Health Concerns Assessment Noted Time PHQ-9 Depression Total Score: 5 02/15/20 10:50 AM CDT documented as of this encounter Care Teams Manufacturing Supervisor Relationship Specialty Start Date End Date Bianca Aggarwal FNP [address] [place] [id number] PCP - General Nurse Practitioner Family 05/20/20 documented as of this encounter
--- OUTSIDE RECORDS SUMMARY | 2024-04-04 19:42 | XMS_ITS | Encounter Summary ---
Author Organization [facility] Address [address] [place] [address]. 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 Gender Identity Not on file Sexual Orientation Not on file documented as of this encounter Plan of Treatment Upcoming Encounters Date Type Department Care Team ([facility] Contact Info) Description 09/06/2024 10:40 AM CDT Office Visit [facility] Family & Internal Medicine - [place] [address] [place] [phone] Bianca Aggarwal FNP [address] [place] [address] documented as of this encounter Procedures Procedure Name Priority Date/Time Associated Diagnosis Comments BONE DENSITY GENERIC (SCAN ORDER) 12/30/2023 BONE DENSITY GENERIC (SCAN ORDER) 12/30/2023 documented in this encounter Results * BONE DENSITY GENERIC (SCAN ORDER) (12/30/2023) Anatomical Region Laterality Modality Other 12/30/2023 us Doc Med Group Scanned SCANNING Final Resu lt * BONE DENSITY GENERIC (SCAN ORDER) (12/30/2023) Anatomical Region Laterality Modality Other 12/30/2023 us [facility] Scanned SCANNING Final Resu lt documented in this encounter Visit Diagnoses Not on filedocumented in this encounter Additional Health Concerns Assessment Noted Time PHQ-9 Depression Total Score: 5 02/15/20 23 10:50 AM CDT documented as of this encounter Care Teams Photographer'S Assistant Relationship Specialty Start Date End Date Bianca Aggarwal FNP [address] [place] [address] PCP - General Nurse Practitioner Family 05/20/20 documented as of this encounter
--- OUTSIDE RECORDS SUMMARY | 2024-04-04 19:42 | XMS_ITS | Encounter Summary ---
Author Organization [facility] Address [address] [place] [address]. 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 Gender Identity Not on file Sexual Orientation Not on file documented as of this encounter Plan of Treatment Upcoming Encounters Date Type Department Care Team (Late st Contact Info) Description 09/06/2024 10:40 AM CDT Office Visit [facility] Family & Internal Medicine - [place] [id number] [place] [address] Bianca Aggarwal FNP [address] [place] [address] documented as of this encounter Visit Diagnoses Not on filedocumented in this encounter Additional Health Concerns Assessment Noted Time PHQ-9 Depression Total Score: 0 01/28/20 22 1:07 PM CDT documented as of this encounter Care Teams Interior Systems Carpenter Relationship Specialty Start Date End Date Bianca Aggarwal FNP [address] [place], [place] [phone] PCP - General Nurse Practitioner Family 05/20/20 documented as of this encounter
--- OUTSIDE RECORDS SUMMARY | 2024-04-04 19:42 | XMS_ITS | Encounter Summary ---
Author Organization [facility] Address [facility] [place] [address] [place] [address] Care Team Providers Care Fruit And Vegetable Inspector Name Role Phone ClaribelChloe nance ONDINA Primary Care Provider [phone] Reason for Visit * Reason Onset Date Comments Results 12/14/2023 Encounter Details Date Type Department Care Team (Late st Contact Info) Description 12/14/[address] 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 Go Borjas out in [facility]. She was referred by her other specialist. Patient will call this office backif she has any other concerns or issues. Opportunity given for all questions to be answered, no further needs voiced at this time. LL-12/21/23 * ONDINA Pope - 12/21/2023 11:28 AM CDT We can send her to PT Can sports medicine get her in any sooner? Does devika batista have availability? Make sure she is not having calf pain and doesn't need a doppler study of that leg * Kathryn Jha MA - 12/21/2023 9:49 AM CDT Patient stated finished the steroid and was helping some but now that she is finished with rx pain in leg is returning. Ortho appt isn't till 02/27/24. How would you like to proceed? * ONDIAN Pope - 12/14/2023 8:32 PM CDT Steroids sent * Kathryn Jha MA - 12/14/2023 3:00 PM CDT The patient called for a referral to the following physician: Is this a new consult:Yes. Dr's name: Frandy Diez Specialty: Ortho Reason for referral (diagnosis): Left hip pain, degenerative changes left hip and lower spine Appointment: na Last office visit at this office: Last visit with [facility]E [facility]SE in [facility] was on: 12/14/2023 in [facility] Future appointment scheduled: Future Appointments Date Time Provider Department Center 02/24/2024 10:00 AM ONDINA Pope [facility]MR[facility] * Kathryn Jha MA - 12/14/2023 2:54 PM CDT ----- Message from Chloe House sent at 12/14/2023 11:33 AM CDT ----- Her hip imaging does show degenerative changes in the left hip and of her lower spine. We can send her to physical therapy or we can send her to sports medicine or Dr. Diez for an evaluation and to discuss treatment options. We can also start an oral steroid for 6 days, prior to referral, to see if this helps with some inflammation that she might be having Patient was verbally informed of results and understands instructions. Would like to go ahead and see Ortho and can send prescription to [facility]. jc fernandez Referral placed and sent to referral dept. Chloe: Are you wanting prednisone? Dosing? documented in this encounter Plan of Treatment Upcoming Encounters Date Type Department Care Team (Late st Contact Info) Description 09/06/2024 10:40 AM CDT Office Visit [facility] Family & Internal Medicine - [address] [phone] Chloe Houes FNP [facility] [place] [address] documented as of this encounter Visit Diagnoses Diagnosis Left hip pain- Primary Pain in joint, pelvic region and thigh documented in this encounter Additional Health Concerns Assessment Noted Time PHQ-9 Depression Total Score: 5 02/15/20 23 10:50 AM CDT documented as of this encounter Care Teams Fruit And Vegetable Inspector Relationship Specialty Start Date End Date Chloe House FNP [address] [place] [address] PCP - General Nurse Practitioner Family 05/20/20 documented as of this encounter
--- OUTSIDE RECORDS SUMMARY | 2024-04-04 19:42 | XMS_ITS | Encounter Summary ---
Author Organization [facility] Address [address] [place] [address]. 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 Gender Identity Not on file Sexual Orientation Not on file documented as of this encounter Plan of Treatment Upcoming Encounters Date Type Department Care Team (Late Contact Info) Description 09/06/2024 10:40 AM CDT Office Visit [facility] Family & Internal Medicine [address] [phone] Bianca Aggarwal FNP [address] [place] [address] documented as of this encounter Procedures Procedure Name Priority Date/Time Associated Diagnosis Comments IMAGE GENERIC 03/21/2023 PROCEDURE GENERIC (SCAN ORDER) 03/21/2023 documented in this encounter Results * PROCEDURE GENERIC (03/21/2023) 03/21/2023 us Doc Med Group Scanned SCANNING Final Resu lt * IMAGE GENERIC (03/21/2023) Anatomical Region Laterality Modality Other 03/21/2023 us Doc Med Group Scanned SCANNING Final Resu lt documented in this encounter Visit Diagnoses Not on filedocumented in this encounter Additional Health Concerns Assessment Noted Time PHQ-9 Depression Total Score: 5 02/15/20 23 10:50 AM CDT documented as of this encounter Care Teams Roving Weight Gauger Relationship Specialty Start Date End Date Bianca Aggarwal FNP [address] [place] [id number] PCP - General Nurse Practitioner Family 05/20/20 documented as of this encounter
--- OUTSIDE RECORDS SUMMARY | 2024-04-04 19:42 | XMS_ITS | Encounter Summary ---
Author Organization [facility] Address [address] [place] [address]. 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 Gender Identity Not on file Sexual Orientation Not on file documented as of this encounter Plan of Treatment Upcoming Encounters Date Type Department Care Team (Late st Contact Info) Description 09/06/2024 10:40 AM CDT Office Visit [facility] Family & Internal Medicine - [address] [phone] Bianca Aggarwal FNP [address] [place] [address] documented as of this encounter Visit Diagnoses Not on filedocumented in this encounter Additional Health Concerns Assessment Noted Time PHQ-9 Depression Total Score: 5 02/15/20 23 10:50 AM CDT documented as of this encounter Care Teams Motor Scooter Repairer Relationship Specialty Start Date End Date Bianca Aggarwal FNP [address] [place], [place] [phone] PCP - General Nurse Practitioner Family 05/20/20 documented as of this encounter
--- OUTSIDE RECORDS SUMMARY | 2024-04-04 19:42 | XMS_ITS | Encounter Summary ---
Author Organization [facility] Address [address] [place] [address]. 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 Family & Internal Medicine - [place] [address] [place] [address] Bianca Aggarwal FNP [facility] [place] [address] documented as of this encounter Visit Diagnoses Not on filedocumented in this encounter Additional Health Concerns Assessment Noted Time PHQ-9 Depression Total Score: 5 02/15/20 10:50 AM CDT documented as of this encounter Care Teams Build Manager Relationship Specialty Start Date End Date Bianca Aggarwal FNP [address] [place] [address] PCP - General Nurse Practitioner Family 05/20/20 documented as of this encounter
--- OUTSIDE RECORDS SUMMARY | 2024-04-04 19:42 | XMS_ITS | Encounter Summary ---
Author Organization [facility] Address [address] [place] [address]. 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 * Laurie Penny MA - 01/14/2023 2:52 PM CDT States she had a spider bite and was seen at [facility]. States it was positive for something but not surewhat for and then given another stronger antibiotic. States she was seen when the computers were down. Sen - and released 12-23 then back on 12-27. Having joint in AM. Now has in between legs and on back. States her whole body feels like it is sun burnt. Patient is Emmanuelle Cortés 01/17/1986. States the only days she can be seen is on a Tuesday. * ONDINA Pope - 01/13/2023 3:14 PM CDT We need to find out why she needs to be seen sooner please. * Nithya Leigh - 01/13/2023 1:39 PM CDT Pt. Wants to est. care for her daughter and son in law with provider. She states her daughter needsto be seen TY for some medical issues.Please advise. documented in this encounter Plan of Treatment Upcoming Encounters Date Type Department Care Team (Late st Contact Info) Description 09/06/2024 10:40 AM CDT Office Visit [facility] Family & Internal Medicine - [place] [address] [place] [address] Bianca Aggarwal FNP [address] [place] [address] documented as of this encounter Visit Diagnoses Not on filedocumented in this encounter Additional Health Concerns Assessment Noted Time PHQ-9 Depression Total Score: 0 01/28/20 22 1:07 PM CDT documented as of this encounter Care Teams Potato Chip Sorter Relationship Specialty Start Date End Date Bianca Aggarwal FNP [address] [place] [id number] PCP - General Nurse Practitioner Family 05/20/20 documented as of this encounter
--- OUTSIDE RECORDS SUMMARY | 2024-04-04 19:42 | XMS_ITS | Encounter Summary ---
Author Organization [facility] Address [address] [place] [address]. 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 Gender Identity Not on file Sexual Orientation Not on file documented as of this encounter Plan of Treatment Upcoming Encounters Date Type Department Care Team (Late st Contact Info) Description 09/06/2024 10:40 AM CDT Office Visit [facility] Family & Internal Medicine - [place] [address] [place] [address] Bianca Aggarwal FNP [address] [place] [address] documented as of this encounter Visit Diagnoses Not on filedocumented in this encounter Additional Health Concerns Assessment Noted Time PHQ-9 Depression Total Score: 0 01/28/20 22 1:07 PM CDT documented as of this encounter Care Teams Fiber Worker Relationship Specialty Start Date End Date Bianca Aggarwal FNP [address] [place], [place] [phone] PCP - General Nurse Practitioner Family 05/20/20 documented as of this encounter
--- OUTSIDE RECORDS SUMMARY | 2024-04-04 19:42 | XMS_ITS | Clinical Summary ---
Author Organization [facility] Address [address] [place] [address] [place] [address] Care Team Providers Care Product Safety Administrator Name Role Phone Bianca Aggarwal ONDINA Primary Care Provider [phone] Allergies Active Allergy Reactions Criticality Noted Date Comments Flecainide Other (see comment),Palpitations High 02/17/2011 Other reaction(s): Runs of non-sustained VT (< 3 seconds) on Hol2010 Iodine Itching,Unknown High 04/21/2023 Latex Itching,Unknown High 04/21/2023 Morphine Nausea Only,Nausea a nd Vomiting Low 05/20/2020 Oxycodone Other (see comment) 04/28/2009 Medications celecoxib 200 MG capsule Take 1 capsule (200 mg total) by mouth 2 (two) times daily. 02/01/20 20 Active meclizine 25 MG tablet Take 1 tablet (25 mg total) by mouth 3 (three) times daily as needed. 03/25/20 20 Active Multiple Vitamins-Minerals (PRESERVISION AREDS) capsule Take 1 capsule by mouth daily. Active potassium chloride 20 MEQ packet Take 1 packet by mouth daily. Active tiZANidine HCl 2 MG CapIndications:Ac blu bilateral low back pain without sciatica Take one capsule three times daily as needed for pain/muscle spasm. 30 capsule 05/07/19 Active spironolactone 25 MG tablet Take 1 tablet (25 mg total) by mouth daily. 08/08/19 22 Active ALPRAZolam 0.25 MG tabletIndications :Claustrophobia Take one tablet one hour prior to your MRI and, if not effective, you can may take another tablet. You must have a train driver to take this medciation 4 tablet 05/27/20 22 Active omeprazole (PRILOSEC) 40 MG capsuleIndication s:GERD (gastroesophageal reflux disease) Take 1 capsule (40 mg total) by mouth every morning. 30 capsule 2 04/23/19 23 Active ELIQUIS 5 MG tabletIndications :skilled nursing (current) use of anticoagulants Take 1 tablet (5 mg total) by mouth 2 (two) times daily. 60 tablet 2 04/23/19 23 Active estradiol (ESTRACE) 1 MG tabletIndications :Hormone replacement therapy (HRT) Take 1.5 tablets (1.5 mg total) by mouth daily. Take 1.5 mg by mouth daily. 28 tablet 2 04/26/19 23 Active alendronate (FOSAMAX) 35 MG tabletIndications :Osteopenia, unspecified location TAKE 1 TABLET BY MOUTH BY MOUTH EVERY WEEK Strength: 35 mg 4 tablet 2 04/23/19 23 Active vibegron (GEMTESA) 75 MG tabletIndications :Overactive bladder Take 1 tablet (75 mg total) by mouth daily. 90 tablet 3 04/29/19 23 Active Magnesium 400 MG TabIndications:Lo w magnesium level Take 400 mg by mouth daily. 90 tablet 3 04/29/19 23 Active amLODIPine (NORVASC) 10 MG tabletIndications :Primary hypertension TAKE 1 TABLET BY MOUTH ONCE DAILY STOP TAKING 5MG 90 tablet 03/31/20 23 Active metoprolol succinate ER (TOPROL-XL) 25 MG 24 hr tablet Take 1 tablet (25 mg total) by mouth 2 (two) times a day. 10/25/19 24 Active lisinopril (PRINIVIL) 10 MG tablet Take 1 tablet (10 mg total) by mouth daily. 10/28/19 24 Active methylPREDNISolon e, MATTHEW, (MEDROL DOSEPAK) 4 MG tabletIndications :Left hip pain,Left leg pain Take 1 tablet (4 mg total) by mouth see administration instructions. 6 TABLETS ON DAY ONE, 5 TABLETS DAY TWO, 4 TABLETS DAY THREE, 3 TABLETS DAY FOUR, 2 TABLETS DAY FIVE, AND 1 TABLET DAY SIX 1 each 12/14/19 24 Active traMADol (ULTRAM) 50 MG tabletIndications :Rheumatoid arthritis involving multiple sites with positive rheumatoid factor (CMS/HCC HHS/HCC) take 1 tablet by mouth three times daily 90 tablet 01/13/20 24 Active furosemide (LASIX) 20 MG tabletIndications :Leg swelling Take 1 tablet (20 mg total) by mouth daily. 90 tablet 3 03/08/20 24 Active fluticasone propionate (FLONASE) 50 MCG/ACT nasal sprayIndications: Allergic rhinitis, unspecified seasonality, unspecified trigger 2 sprays by Each Nostril route daily. 15.8 mL 3 03/08/20 24 Active furosemide 20 MG tablet Take 1 tablet (20 mg total) by mouth daily. 06/20/19 22 024 Disconti nued(Reo rder) Active Problems Problem Noted Date Diagnosed Date Family history of diabetes mellitus (DM) 024 Ventricular tachycardia ([facility]) 2023 Postmenopausal 12/14/2023 Encounter for long-term (current) use of medicat ions 12/14/2023 Cardiac pacemaker in situ 04/20/2023 Syncopal episodes 02/14/2023 Atherosclerosis of arteries of extremities 05/05 History of meniscal tear 09/17/2021 H/O right knee surgery 09/17/2021 Venous insufficiency 08/05/2021 Mixed stress and urge urinary incontinence 12/02 Chronic diarrhea 12/02/2020 Irritable bowel syndrome with diarrhea Benign paroxysmal positional vertigo due to bilateral vestibular disorder 12/02/2020 Family history of ischemic h eart disease and other diseases of the circulatory system 11/27/2020 Family history of ischemic h eart disease and other diseases of the circulatory system 11/27/2020 Rheumatoid arthritis involvi ng multiple sites with positive rheumatoid factor ([facility]) 05/26/2020 Osteopenia, unspecified location 05/26/2020 OAB (overactive bladder) 05/26/2020 Generalized OA 05/26/2020 Gastroesophageal reflux dise ase, unspecified whether esophagitis present 05/26/2020 Class 2 severe obesity due t o excess calories with serious comorbidity and body mass index (BMI) of 35.0 to 35.9 in adult ([facility]) 05/26/2020 History of atrial fibrillation 05/26/2020 Cardiac murmur 11/08/2018 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 Overview (05/20/2020): IMO UPDT 01/16/2019 Left atrial enlargement 09/14/2017 High alkaline phosphatase 03/31/2016 Hypercholesterolemia 08/27/2015 Hypokalemia 12/25/2014 Palpitations 04/04/2013 Hx of ventricular tachycardia 02/11/2011 Atrial tachycardia ([facility]) 01/12/2011 Overview (05/20/2020): CCM enroll skilled nursing (current) use of anticoagulants 2010 Primary hypertension 05/12/2010 Overview (11/27/2020): CCM Enroll CCM Enroll Obstructive sleep apnea 06/02/2008 Resolved Problems Problem Noted Date Diagnosed Date Resolved Date Encounter for screening for cardiovascular disorders 11/22/2022 02/21/2023 Common wart 11/04/2021 12/14/2023 Wart on thumb 09/17/2021 12/14/2023 Leg edema 06/17/2021 12/14/2023 Leukocytes in urine 12/02/2020 12/14/19 24 Exposure to SARS-associated coronavirus 12/12/2019 05/26/2020 Dizziness 12/03/2010 12/14/2023 Encounters Date Type Department Care Team Description 04/04/2024 Orders Only [facility] [address] [address] Bianca Aggarwal FNP 03/08/2024 10:00 AM DINKING MACHINE OPERATOR Office Visit [facility] [address] [address] Bianca Aggarwal FNP Follow Up; Runny Nose (Patient c/o constant runny, dripping nose. Patient states this has been going on a while and drips all the time . ) 03/08/2024 Travel 02/14/2024 Telephone [facility] [address] [address] Bianca Aggarwal FNP Prior Authorization (nirmatrelvir & ritonavir 300/100 (PAXLOVID) 20 x 150 MG & 10 x 100MG tablet pack) 02/13/2024 Telephone [facility] [address] [address] Bianca Aggarwal FNP COVID-19 from Last 3 Months Immunizations Name Administration Dates Next Due Fluarix 02/02/2015 Fluzone High Dose (IIV, trivalent, 0.5mL) 2023 Fluzone High Dose - >Age 65 (Prefilled Syringe) 02/10/2023,01/27/2022 Influenza Adult (Generic) 01/17/2014 PFIZER COVID-19 (ORIGINAL FO RMULATION, PURPLE CAP) mRNA, LNP-S, PF, 30 MCG/0.3 ML DOSE 07/06/2020,06/15/2020 Pneumococcal (Prevnar 20) 02/14/2023 Family History Medical History Relation Comments Heart Disease Brother Heart Disease Father Aneurysm Mother Relation Status Comments Brother (Age 52) Father (Age 72) Mother (Age 46) Social History Tobacco Use Types Packs/Day Years [...] on file Legal Sex Female 1:23 PM DINKING MACHINE OPERATOR Gender Identity Not on file Sexual Orientation Not on file Last Filed Vital Signs Vital Sign Reading Time Taken Comments Blood Pressure 116/74 03/08/2024 10:13 AM DINKING MACHINE OPERATOR Pulse 73 03/08/2024 10:13 AM DINKING MACHINE OPERATOR Temperature 36.9 ??C (98.4 ??F) 03/08/2024 10:[address] Respiratory Rate 16 03/08/2024 10:13 AM DINKING MACHINE OPERATOR Oxygen Saturation 96% 03/08/2024 10:13 AM DINKING MACHINE OPERATOR Inhaled Oxygen Concentration - - Weight 102 kg (224 lb 12.8 oz) 03/08/2024 10:13 AM DINKING MACHINE OPERATOR Height 170.2 cm (5' 7 ) 03/08/2024 10:13 AM DINKING MACHINE OPERATOR Body Mass Index 35.21 03/08/2024 10:13 AM DINKING MACHINE OPERATOR Plan of Treatment Upcoming Encounters Date Type Department Care Team (Late st Contact Info) Description 09/06/2024 10:40 AM CDT Office Visit [facility] Family & Internal Medicine - [address] [address] Bianca Aggarwal, ONDINA [address] [place] [address] Health Maintenance Due Date Last Done Comments ASCVD Statin 1955 Annual Medicare Wellness Visit 2021 ASCVD LDL 03/16/2023 03/16/2022 COVID-19 Vaccine ( season) 2024 07/06/2020, 06/15/2020 Postponed from 12/18/2023 (Per Provider Recommendation) Mammogram Screening 09/16/2024 02/23/2022, 2 Postponed from 02/24/2024 (Awaiting Documentation) DTaP, Tdap and Td Vaccines (1 - Tdap) 03/08/2025 Postponed from 1975 (Going to Outside Clinic) Zoster Vaccines (1 of 2) 03/08/2025 Pos tponed from 2006 (Going to Outside Clinic) Colorectal Cancer Screening Colonoscopy (10 Years) 03/23/2027 03/23/2017 RSV Immunization or 60+ Years (1 - 1-dose 75+ series) 2031 Hepatitis C Completed 03/16/2022 Pneumococcal Vaccine: 65+ Years Completed 02/14/2023 Dexa Scan (General) Completed 12/30/2023, 12/30/2023, 12/30/2023 Influenza Adult Completed 03/08/2024, 01/17, 01/27/2022, Additional history exists Meningococcal Vaccine Aged Out No ese colby eligible based on patient's age to complete this topic RSV Immunizations Under 20 Months Aged Out No longer eligible based on patient's age to complete this topic Procedures Procedure Name Priority Date/Time Associated Diagnosis Comments COLLECT.CAPILLARY (FNGR,HEEL,EAR) Routine 03/08/2024 11:23 AM DINKING MACHINE OPERATOR Class 2 severe obesity due to excess calories with serious comorbidity and body mass index (BMI) of 35.0 to 35.9 in adult (CMS/HCC HHS/HCC) Family history of diabetes mellitus (DM) HEMOGLOBIN, GLYCOSYLATED Routine 03/08/2024 Class 2 severe obesity due to excess calories with serious comorbidity and body mass index (BMI) of 35.0 to 35.9 in adult (CMS/HCC HHS/HCC) Family history of diabetes mellitus (DM) Other abnormal glucose BONE DENSITY GENERIC (SCAN ORDER) 12/30/2023 LIPID PANEL Routine 03/16/2022 11:51 AM DINKING MACHINE OPERATOR Essential (primary) hypertension BMI 35.0-35.9,adult HEPATITIS C ANTIBODY W/RFX TO HCV RNA Routine 03/16/2022 11:51 AM DINKING MACHINE OPERATOR Need for hepatitis C screening test MAMMOGRAM GENERIC (SCAN ORDER) 02/23/2022 COLONOSCOPY GENERIC (SCAN ORDER) 03/23/2017 from Last 3 Months or Most Recently Relevant to Health Maintenance Results * A1C (BACK OFFICE) (03/08/2024) Pathologist [facility] HGB A1C 5.4 % [facility] 03/08/2024 Bianca Aggarwal ASSEMBLER KNIFE LABORATORY Final Result [facility] [address] [place] [address], * BONE DENSITY GENERIC (SCAN ORDER) (12/30/2023) Anatomical Region Laterality Modality Other 12/30/2023 us [facility] Scanned SCANNING Final Resu lt * HEPATITIS C ANTIBODY W/RFX TO HCV RNA ([facility] ONLY) (03/16/2022 11:51 AM DINKING MACHINE OPERATOR) Pathologist [facility] HEPATITIS C AB NON-REACT DIAZ NON-REACT DIAZ [facility] SIGNAL TO CUTOFF 0.09 <1.00 [facility] Comment: HCV antibody was non-reactive. There is no laboratory evidence of HCV infection. In most cases, no further action is required. However, if recent HCV exposure is suspected, a test for HCV RNA (test code 24814) is suggested. For additional information please refer to http://Applied StemCell.Buy.On.Social/faq/BUI78a2 (This link is being provided for informational/ educational purposes only.) 03/16/2022 11:5 1 AM DINKING MACHINE OPERATOR 03/17/2022 8:31 AM DINKING MACHINE OPERATOR Narrative Resulting Agency Comment Performing Organization Information: ?Site ID: [id number] ?Name: Rui LarsenRita ?Address: [address] [place] [address] ?Director: Naman Andrews D.O., MPH Derick Michaud DO LABORATORY Final Re sult [facility] [address] [place] [address], * LIPID PANEL (03/16/2022 11:51 AM DINKING MACHINE OPERATOR) [facility] CHOLESTEROL 153 <200 mg/dL [facility] HDL 63 > OR = 50 mg/dL [facility] TRIGLYCERIDES 90 <150 mg/dL [facility] LDL (CALCULATED) 73 mg/dL (calc) [facility] Comment: Reference range: <100 Desirable range <100 mg/dL for primary prevention; ?? <70 mg/dL for patients with CHD or diabetic patients with > or = 2 CHD risk factors. LDL-C is now calculated using the Kerri calculation, which is a validated novel method providing better accuracy than the Friedewald equation in the estimation of LDL-C. Thierno JASSO et al. SAMARA. 2013;310(19): 6243-2976 (http://education.StormPins/faq/FWJ337) CHOL/HDL RATIO 2.4 <5.0 (calc) [facility] NON HDL CHOLESTEROL 90 <130 mg/dL (calc) [facility] Comment: For patients with diabetes plus 1 major ASCVD risk factor, treating to a non-HDL-C goal of <100 mg/dL (LDL-C of <70 mg/dL) is considered a therapeutic option. 03/16/2022 11:5 1 AM DINKING MACHINE OPERATOR 03/17/2022 5:00 AM DINKING MACHINE OPERATOR Narrative Resulting Agency Comment Performing Organization Information: ?Site ID: [id number] ?Name: Rui Pichardo ?Address: [address] [place] [address] ?Director: Naman Andrews D.O., MPH Derick Michaud DO LABORATORY Final Re sult [facility] [place] [address] [place] [address], * MAMMOGRAM GENERIC (02/23/2022) Anatomical Region Laterality Modality Other 02/23/2022 [facility] Scanned SCANNING Final Resu lt * COLONOSCOPY GENERIC (03/23/2017) 03/23/2017 Mobile Pulse Med [facility] Scanned SCANNING Final Resu lt from Last 3 Months or Most Recently Relevant to Health Maintenance Insurance MEDICARE BLUE CROSS BLUE [facility] Care Teams Product Safety Administrator Relationship Specialty Start Date End Date Bianca Aggarwal FNP [address] [place] [address] PCP - General Nurse Practitioner Family 05/20/20
--- OUTSIDE RECORDS SUMMARY | 2024-04-04 19:42 | XMS_ITS | Encounter Summary ---
Author Organization [facility] Address [address] [place] [address]. [place] [address] [place] [address] Care Team Providers Care Forest Economics Professor Name Role Phone Bianca Aggarwal Primary Care Provider [phone] Encounter Details Date Type Department Care Team (Latest Contact Info) Description 06/24/2023 Scan HEALTH INFO SRVCS Scanned, Doc Med [...] on file Legal Sex Female 1:23 PM JAVA ORACLE DEVELOPER Gender Identity Not on file Sexual Orientation Not on file documented as of this encounter Plan of Treatment Upcoming Encounters Date Type Department Care Team (Late st Contact Info) Description 09/06/2024 10:40 AM CDT Office Visit [facility] Family & Internal Medicine - [address] [address] Bianca Aggarwal FNP [address] [place] [address] documented as of this encounter Visit Diagnoses Not on filedocumented in this encounter Additional Health Concerns Assessment Noted Time PHQ-9 Depression Total Score: 5 02/15/20 23 10:50 AM CDT documented as of this encounter Care Teams Forest Economics Professor Relationship Specialty Start Date End Date Bianca Aggarwal FNP [address] [place], [place] [phone] PCP - General Nurse Practitioner Family 05/20/20 documented as of this encounter
--- OUTSIDE RECORDS SUMMARY | 2024-04-04 19:42 | XMS_ITS | Encounter Summary ---
Author Organization [facility] Address [address] [place] [address]. [place], [place] [address] [place] [address] Care Team Providers Care Child Nurse Name Role Phone Bianca Aggarwal Primary Care Provider [phone] Reason for Visit * Reason Onset Date Comments Eye Problem 04/21/2023 Encounter Details Date Type Department Care Team (Late st Contact Info) Description 04/21/2023 Telephone [facility] Family & Internal Medicine [address] [place] [place] [address] Bianca Aggarwal FNP [facility] [place] [address] Eye Problem Social History Tobacco Use Types Packs/Day Years [...] on file Legal Sex Female 1:23 PM AIRSET CASTER Gender Identity Not on file Sexual Orientation Not on file documented as of this encounter Progress Notes * Ashley Khan MA - 04/21/2023 1:53 PM CST Patient was treated already by primary care coordinator ET CASTER * ONDINA Pope - 04/21/2023 12:27 PM CST We can send her out erythromycin ointment to apply at bedtime, to her lower lid for the next 5 days, use warm compresses three times a day to promote drainage and healing. ET CASTER * Jumana Dyer - 04/21/2023 9:38 AM CST Brenna called in asking to be seen because her left eye is crusty and she thinks she has a stye. Started over the weekend. She wants to be seen today or tomorrow because she goes in the hospital on Tuesday for her pacemaker. Or she wants to know if she needs to see an eye dr. ET CASTER documented in this encounter Plan of Treatment Upcoming Encounters Date Type Department Care Team (Late st Contact Info) Description 09/06/2024 10:40 AM CDT Office Visit [facility] Family & Internal Medicine - [address] [address] Bianca Aggarwal FNP [address] [place] [address] documented as of this encounter Visit Diagnoses Not on filedocumented in this encounter Additional Health Concerns Assessment Noted Time PHQ-9 Depression Total Score: 5 02/15/20 23 10:50 AM CDT documented as of this encounter Care Teams Child Nurse Relationship Specialty Start Date End Date Bianca Aggarwal FNP [address] [place] [address] PCP - General Nurse Practitioner Family 05/20/20 documented as of this encounter
--- OUTSIDE RECORDS SUMMARY | 2024-04-04 19:42 | XMS_ITS | Encounter Summary ---
Author Organization [facility] Address [address] [place] [address]. [place] [address] [place] [address] Care Team Providers Care Employment Counselor Name Role Phone Bianca Aggarwal Primary Care Provider [phone] Encounter Details Date Type Department Care Team (Latest Contact Info) Description 05/03/2023 Scan HEALTH INFO SRVCS Scanned, Doc Med [...] on file Legal Sex Female 1:23 PM SPAR MACHINE OPERATOR HELPER Gender Identity Not on file Sexual Orientation Not on file documented as of this encounter Plan of Treatment Upcoming Encounters Date Type Department Care Team (Late st Contact Info) Description 09/06/2024 10:40 AM CDT [facility] Family [facility] Internal Medicine - [address] [address] Bianca Aggarwal FNP [address] [place] [address] documented as of this encounter Visit Diagnoses Not on filedocumented in this encounter Additional Health Concerns Assessment Noted Time PHQ-9 Depression Total Score: 5 02/15/20 23 10:50 AM CDT documented as of this encounter Care Teams Employment Counselor Relationship Specialty Start Date End Date Bianca Aggarwal FNP [address] [place], [place] [phone] PCP - General Nurse Practitioner Family 05/20/20 documented as of this encounter
--- OUTSIDE RECORDS SUMMARY | 2024-04-04 19:42 | XMS_ITS | Encounter Summary ---
Author Organization [facility] Address [address] [place] [address]. [place] [address] [place] [address] Care Team Providers Care Pole Inspector Name Role Phone Bianca Aggarwal ONDINA Primary Care Provider [phone] Reason for Visit * Reason Onset Date Comments Prior Authorization 02/14/2024 nirmatrelvir & ritonavir 300/100 (PAXLOVID) 20 x 150 MG & 10 x 100MG tablet pack Encounter Details Date Type Department Care Team (Late st Contact Info) Description 02/14/2024 Telephone [facility] Family & Internal Medicine [facility] [address] [place] [address] ClaribelBianca nance FNP [address] [place] [address] Prior Authorization (nirmatrelvir & ritonavir 300/100 (PAXLOVID) 20 x 150 MG & 10 x 100MG tablet pack) Social History Tobacco Use Types Packs/Day Years [...] on file Legal Sex Female 1:23 PM ORTHOTIC PRACTITIONER Gender Identity Not on file Sexual Orientation Not on file documented as of this encounter Progress Notes * Kathryn Jha MA - 02/14/2024 10:41 AM CDT Images from the original note were not included. MARIKA approved for Paxlovid. jc Gupta Patient verbally notified. Approved Prior authorization approved Payer: [employer] [phone] Note from payer: MARIKA Case: [id number], Status: Approved, Coverage Starts on: 04/18/2023 12:00:00 AM, Coverage Ends on: 04/17/2025 12:00:00 AM. Questions? Contact . Approval Details Authorization number: 0 Authorized from April 18, 2023 to April 17, 2025 Electronic appeal: Not supported View History * Kathryn Jha MA - 02/14/2024 10:22 AM CDT PA pending via [employer] for nirmatrelvir & ritonavir 300/100 (PAXLOVID) 20 x 150 MG & 10 x 100MG tablet pack /jc gupta documented in this encounter Plan of Treatment Upcoming Encounters Date Type Department Care Team (Late st Contact Info) Description 09/06/2024 10:40 AM CDT Office Visit [facility] Family & Internal Medicine - [place] [address] [place] [phone] Bianca Aggarwal FNP [facility] [place] [address] documented as of this encounter Visit Diagnoses Not on filedocumented in this encounter Additional Health Concerns Assessment Noted Time PHQ-9 Depression Total Score: 5 02/15/20 23 10:50 AM CDT documented as of this encounter Care Teams Pole Inspector Relationship Specialty Start Date End Date Bianca Aggarwal FNP [facility] [place], [place] [phone] PCP - General Nurse Practitioner Family 05/20/20 documented as of this encounter
--- OUTSIDE RECORDS SUMMARY | 2024-04-04 19:42 | XMS_ITS | Encounter Summary ---
Author Organization [facility] Address [address] [place] [address]. [place] [address] [place] [address] Care Team Providers Care American Sign Language Teacher Name Role Phone Bianca Aggarwal Primary Care Provider [phone] Encounter Details Date Type Department Care Team (Latest Contact Info) Description 12/17/2022 Scan HEALTH INFO SRVCS Scanned, Doc Med [...] on file Legal Sex Female 1:23 PM LUG BREAKER AND WIRE PULLER Gender Identity Not on file Sexual Orientation Not on file documented as of this encounter Plan of Treatment Upcoming Encounters Date Type Department Care Team (Late st Contact Info) Description 09/06/2024 10:40 AM CDT Office Visit [facility] Family & Internal Medicine - [place] [phone] [place] [address] Biacna Aggarwal FNP [address] [place] [address] documented as of this encounter Visit Diagnoses Not on filedocumented in this encounter Additional Health Concerns Assessment Noted Time PHQ-9 Depression Total Score: 0 01/28/20 22 1:07 PM CDT documented as of this encounter Care Teams American Sign Language Teacher Relationship Specialty Start Date End Date Bianca Aggarwal FNP [address] [place], [place] [phone] PCP - General Nurse Practitioner Family 05/20/20 documented as of this encounter
--- OUTSIDE RECORDS SUMMARY | 2024-04-04 19:43 | XMS_ITS | Encounter Summary ---
Author Organization [facility] Address [address] [place] [address]. [place] [address] [place] [address] Care Team Providers Care Athletic Events Scorer Name Role Phone ClaribelBianca nance ONDINA Primary Care Provider [phone] Reason for Visit * Reason Onset Date Comments Joint Pain 09/08/2021 Encounter Details Date Type Department Care Team (Late st Contact Info) Description 09/08/2021 Telephone [facility] Family & Internal Medicine [facility] [address] [place] [address] Bianca Aggarwal FNP [facility] [place], [place] [id number] Joint Pain Social History Tobacco Use Types Packs/Day Years [...] 3, please move on to questions 3-9 1 05/20/2020 Comments No Sex and Gender Information Value Date Recorded Sex Assigned at Not on file Legal Sex Female 1:23 PM DEAN OF GRADUATE STUDIES Gender Identity Not on file Sexual Orientation Not on file documented as of this encounter Progress Notes * Christy Armstrong RN - 09/08/2021 5:01 PM CDT Called and spoke with patient, she ended up going to urgent care related to pain and swelling. Patient stated there is no FX only a hematoma. Advised patient if there is any change in symptoms to call this office back. Patient has follow up with PCP on 09/11/21. Opportunity given for all questions to be answered, no further needs voiced at this time. LL-09/08/21 * Cher Bernal - 09/08/2021 11:52 AM CDT Patient fell on right knee needing to speak with nursing team about it documented in this encounter Plan of Treatment Upcoming Encounters Date Type Department Care Team (Late st Contact Info) Description 09/06/2024 10:40 AM CDT Office Visit [facility] Family & Internal Medicine - [address] [address] Bianca Aggarwal FNP [address] [place] [address] documented as of this encounter Visit Diagnoses Not on filedocumented in this encounter Additional Health Concerns Assessment Noted Time PHQ-9 Depression Total Score: 3 05/20/19 21 3:25 PM DEAN OF GRADUATE STUDIES documented as of this encounter Care Teams Athletic Events Scorer Relationship Specialty Start Date End Date Bianca Aggarwal FNP [address] [place] [address] PCP - General Nurse Practitioner Family 05/20/20 documented as of this encounter
--- OUTSIDE RECORDS SUMMARY | 2024-04-04 19:43 | XMS_ITS | Encounter Summary ---
Author Organization [facility] Address [address] [place] [address]. [place] [address] [place] [address] Care Team Providers Care Tax Services Manager Name Role Phone Claribelgoyo Bianca ONDINA Primary Care Provider [phone] Reason for Visit * Reason Onset Date Comments Medication 12/01/2020 Encounter Details Date Type Department Care Team (Late st Contact Info) Description 12/01/2020 Telephone [facility] Medical Group Family & Internal Medicine [place] [address] [place] [phone] Bianca Aggarwal FNP [facility] [place] [address] Medication Social History Tobacco Use Types Packs/Day Years [...] on file Legal Sex Female 1:23 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 No / Unsure 11/27/2020 10:56 AM CDT documented as of this encounter Progress Notes * Laurie Penny MA - 12/02/2020 1:33 PM CDTAddended by: LAURIE PENNY on: 12/02/2020 01:33 PM Modules accepted: Orders * Laurie Penny MA - 12/02/2020 1:33 PM CDT Patient informed, rx sent tn * Eros Parra MD - 12/01/2020 5:56 PM CDT Levsin 0.125mg Qac and qHS prn #30 * Anila Morejon - 12/01/2020 10:47 AM CDT Patient is calling in stating that she went to grain picker her Rifaximin and with her insurance it is $692. She is asking if we can call something cheaper out. documented in this encounter Plan of Treatment Upcoming Encounters Date Type Department Care Team (Late st Contact Info) Description 09/06/2024 10:40 AM CDT Office Visit [facility] Medical Group Family & Internal Medicine - [address] [address] Bianca Aggarwal FNP [address] [place] [address] documented as of this encounter Visit Diagnoses Diagnosis Irritable bowel syndrome with diarrhea- Primary Irritable bowel syndrome documented in this encounter Additional Health Concerns Assessment Noted Time PHQ-9 Depression Total Score: 3 05/20/19 21 3:25 PM GLOBAL CLINICAL LEADER documented as of this encounter Care Teams Tax Services Manager Relationship Specialty Start Date End Date Bianca Aggarwal FNP [address] [place] [address] PCP - General Nurse Practitioner Family 05/20/20 documented as of this encounter
--- OUTSIDE RECORDS SUMMARY | 2024-04-04 19:43 | XMS_ITS | Encounter Summary ---
Author Organization [facility] Address [address] [place] [address]. [place] [address] [place] [address] Care Team Providers Care Adult Basic Education Instructor Name Role Phone Jasen Bianca ONDINA Primary Care Provider Reason for Visit * Reason Onset Date Comments Results 09/22/2021 Encounter Details Date Type Department Care Team (Late st Contact Info) Description 09/22/2021 Telephone [facility] Medical Group Family & Internal Medicine [address] [place] [address] Bianca Aggarwal FNP [facility] [place], [place] [id number] Results Social History Tobacco Use Types Packs/Day [...] please move on to questions 3-9 0 09/11/2021 Comments No Sex and Gender Information Value Date Recorded Sex Assigned at Not on file Legal Sex Female 1:23 PM BAILIFF Gender Identity Not on file Sexual Orientation Not on file COVID-19 Exposure Response Date Recorded In the last 10 days, have yo u been in contact with someone who was confirmed or suspected to have Coronavirus/COVID-19? No / Unsure 09/11/2021 10:18 AM CDT documented as of this encounter Progress Notes * Christy Armstrong RN - 09/22/2021 4:26 PM CDT Patient called back in inquiring about results. Results are on PCP desk for review. Informed patient this office will call her back when PCP has reviewed results. Opportunity given for all questions to be answered, no further needs voiced at this time. LL-09/22/21 * Silvia Silva - 09/22/2021 9:25 AM CDT Pt calling, stated that she had an MRI last week and called yesterday and was told we would call her back but no one did. Told her I would check with Bianca and see what the results are. Told her I would make it a high priority task. documented in this encounter Plan of Treatment Upcoming Encounters Date Type Department Care Team (Late st Contact Info) Description 09/06/2024 10:40 AM CDT Office Visit [facility] Medical Group Family & Internal Medicine - [place] [address] [place] [phone] Bianca Aggarwal FNP [address] [place] [address] documented as of this encounter Visit Diagnoses Not on filedocumented in this encounter Additional Health Concerns Assessment Noted Time PHQ-9 Depression Total Score: 4 09/12/19 22 11:24 AM CDT documented as of this encounter Care Teams Adult Basic Education Instructor Relationship Specialty Start Date End Date Bianca Aggarwal FNP [facility] [place] [address] PCP - General Nurse Practitioner Family 05/20/20 documented as of this encounter
--- OUTSIDE RECORDS SUMMARY | 2024-04-04 19:43 | XMS_ITS | Encounter Summary ---
Author Organization [facility] Address [address] [place] [address]. [place] [address] [place] [address] Care Team Providers Care Mechanical Piping Designer Name Role Phone Bianca Aggarwal Primary Care Provider [phone] Encounter Details Date Type Department Care Team (Latest Contact Info) Description 10/30/2021 Travel Social History Tobacco Use Types Packs/Day [...] on file Legal Sex Female 1:23 PM RED MUD THICKENER OPERATOR Gender Identity Not on file Sexual Orientation Not on file COVID-19 Exposure Response Date Recorded In the last 10 days, have yo u been in contact with someone who was confirmed or suspected to have Coronavirus/COVID-19? No / Unsure 10/30/2021 9:50 AM CDT documented as of this encounter Plan of Treatment Upcoming Encounters Date Type Department Care Team (Late st Contact Info) Description 09/06/2024 10:40 AM CDT Office Visit [facility] Medical Group Family & Internal Medicine - [place] [address] [place] [phone] Bianca Aggarwal FNP [address] [place], [place] [phone] documented as of this encounter Visit Diagnoses Not on filedocumented in this encounter Additional Health Concerns Assessment Noted Time PHQ-9 Depression Total Score: 4 09/12/19 22 11:24 AM CDT documented as of this encounter Care Teams Mechanical Piping Designer Relationship Specialty Start Date End Date Bianca Aggarwal FNP [address] [place] [address] PCP - General Nurse Practitioner Family 05/20/20 documented as of this encounter
--- OUTSIDE RECORDS SUMMARY | 2024-04-04 19:43 | XMS_ITS | Encounter Summary ---
Author Organization [facility] Address [address] [place] [address]. [place], [place] [address] [place] [address] Care Team Providers Care Double Cutter Name Role Phone Bianca Aggarwal Primary Care Provider [phone] Reason for Visit * Reason Comments Image (SCAN) Encounter Details Date Type Department Care Team (Latest Contact Info) Description 09/08/2021 Scan HEALTH INFO SRVCS Scanned, Documents Image (SCAN) Social History Tobacco Use Types [...] on file Legal Sex Female 1:23 PM VP HR DIVERSITY Gender Identity Not on file Sexual Orientation [...] [facility] Family & Internal Medicine [address] [address] Bianca Aggarwal FNP [address] [place] [address] documented as of this encounter Procedures Procedure Name Priority Date/Time Associated Diagnosis Comments IMAGE GENERIC 09/08/2021 documented in this encounter Results * IMAGE GENERIC (09/08/2021) Anatomical Region Laterality Modality Other 09/08/2021 Narrative 09/08/2021 Ordered by an unspecified provider. us Documents Scanned SCANNING Final Result documented in this encounter Visit Diagnoses Not on filedocumented in this encounter Additional Health Concerns Assessment Noted Time PHQ-9 Depression Total Score: 3 05/20/19 21 3:25 PM VP HR DIVERSITY documented as of this encounter Care Teams Double Cutter Relationship Specialty Start Date End Date Bianca Aggarwal FNP [address] [place] [address] PCP - General Nurse Practitioner Family 05/20/20 documented as of this encounter
--- OUTSIDE RECORDS SUMMARY | 2024-04-04 19:43 | XMS_ITS | Encounter Summary ---
Author Organization [facility] Address [address] [place] [address]. 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 No / Unsure 09/11/2021 10:18 AM CDT documented as of this encounter Plan of Treatment Upcoming Encounters Date Type Department Care Team ([facility] Contact Info) Description 09/06/2024 10:40 AM CDT Office Visit [facility] Medical Group Family & Internal Medicine [address] [address] Bianca Aggarwal FNP [facility]1 [place] [address] documented as of this encounter Procedures Procedure Name Priority Date/Time Associated Diagnosis Comments MRI GENERIC 09/16/2021 IMAGE GENERIC 09/16/2021 documented in this encounter Results * IMAGE GENERIC (09/16/2021) Anatomical Region Laterality Modality Other 09/16/2021 Narrative 09/16/2021 Ordered by an unspecified provider. us Documents Scanned SCANNING Final Result * MRI GENERIC (09/16/2021) Anatomical Region Laterality Modality Other 09/16/2021 Narrative 09/16/2021 Ordered by an unspecified provider. us Documents Scanned SCANNING Final Result documented in this encounter Visit Diagnoses Not on filedocumented in this encounter Additional Health Concerns Assessment Noted Time PHQ-9 Depression Total Score: 4 09/12/19 22 11:24 AM CDT documented as of this encounter Care Teams Fur Floor Worker Relationship Specialty Start Date End Date Bianca Aggarwal FNP [address] [place] [address] PCP - General Nurse Practitioner Family 05/20/20 documented as of this encounter
--- OUTSIDE RECORDS SUMMARY | 2024-04-04 19:43 | XMS_ITS | Encounter Summary ---
Author Organization [facility] Address [address] [place] [address]. [place] [address] [place] [address] Care Team Providers Care Fringe Weaver Name Role Phone Bianca Aggarwal Primary Care Provider [phone] Encounter Details Date Type Department Care Team (Latest Contact Info) Description 10/16/2020 Scan HEALTH INFO SRVCS Scanned, Documents Social History Tobacco Use Types Packs/Day Years [...] on file Legal Sex Female 1:23 PM HOSPITAL EDUCATION COORDINATOR Gender Identity Not on file Sexual Orientation Not on file documented as of this encounter Plan of Treatment Upcoming Encounters Date Type Department Care Team (Late st Contact Info) Description 09/06/2024 10:40 AM CDT Office Visit [facility] Family & Internal Medicine - [place] [address] [place] [address] Bianca Aggarwal FNP [address] [place] [address] documented as of this encounter Visit Diagnoses Not on filedocumented in this encounter Additional Health Concerns Assessment Noted Time PHQ-9 Depression Total Score: 3 05/20/19 21 3:25 PM HOSPITAL EDUCATION COORDINATOR documented as of this encounter Care Teams Fringe Weaver Relationship Specialty Start Date End Date Bianca Aggarwal FNP [address] [place] [address] PCP - General Nurse Practitioner Family 05/20/20 documented as of this encounter
--- OUTSIDE RECORDS SUMMARY | 2024-04-04 19:43 | XMS_ITS | Encounter Summary ---
Author Organization [facility] Address [address] [place] [address]. 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 Gender Identity Not on file Sexual Orientation Not on file documented as of this encounter Plan of Treatment Upcoming Encounters Date Type Department Care Team (Late st Contact Info) Description 09/06/2024 10:40 AM CDT Office Visit [facility] Medical Group Family & Internal Medicine - [place] [address] [place] [phone] Bianca Aggarwal FNP [address] [place] [address] documented as of this encounter Procedures Procedure Name Priority Date/Time Associated Diagnosis Comments ECHO GENERIC (SCAN ORDER) 05/19/2022 documented in this encounter Results * ECHO GENERIC (05/19/2022) Anatomical Region Laterality Modality Other 05/19/2022 us Doc Med Group Scanned SCANNING Final Resu lt documented in this encounter Visit Diagnoses Not on filedocumented in this encounter Additional Health Concerns Assessment Noted Time PHQ-9 Depression Total Score: 0 01/28/20 22 1:07 PM CDT documented as of this encounter Care Teams Hr Analyst Relationship Specialty Start Date End Date Bianca Aggarwal FNP [address] [place] [address] PCP - General Nurse Practitioner Family 05/20/20 documented as of this encounter
--- OUTSIDE RECORDS SUMMARY | 2024-04-04 19:43 | XMS_ITS | Encounter Summary ---
Author Organization [facility] Address [facility]. [place], [place] [address] [place] [address] Care Team Providers Care Vest Busheler Name Role Phone Bianca Aggarwal Primary Care Provider [phone] Reason for Referral * Consultation/Treatment (Routine) - Closed Specialty Diagnoses / Procedures Referred By Janice vergara Referred To Contact PAIN MANAGEMENT / [facility] Pain Management Diagnoses Low back pain Procedures OFFICE/OUTPT VISIT,NEW,LEVL III OFFICE/OUTPT VISIT,NEW,LEVL IV OFFICE/OUTPT VISIT,NEW,LEVL V OFFICE/OUTPT VISIT,EST,LEVL III OFFICE/OUTPT VISIT,EST,LEVL IV OFFICE/OUTPT VISIT,EST,LEVL V Bianca Aggarwal FNP [address] [place] [address] Phone: tel: fax: Minal Eldridge MD Three [facility] [address] [place] [address] Phone: tel: fax: Referral ID Status Reason Start Date Expiration Date V isits Requested Visits Authorized [id number] Closed Specialty Services 01/01/2022 02/01/2023 1 1 Reason for Visit * Reason Onset Date Comments Imm/Inj 01/01/2022 Encounter Details Date Type Department Care Team (Late st Contact Info) Description 01/01/2022 Telephone [facility] Medical Group Family & Internal Medicine [facility] [address] [place] [address] Bianca Aggarwal FNP [address] [place] [address] Imm/Inj Social History Tobacco Use Types Packs/Day Years [...] on file Legal Sex Female 1:23 PM RETAIL ANALYTICS MANAGER Gender Identity Not on file Sexual Orientation Not on file documented as of this encounter Progress Notes * Ashley Khan MA - 01/01/2022 11:58 AM CDT Patient notified and v/u , pain management referral placed. For documentation purposes Dr Soto is her Chiropractor * ONDINA Pope - 01/01/2022 10:28 AM CDT Okay to refer * Anila Hagan - 01/01/2022 9:30 AM CDT Patient states that Dr. Soto is advising that she get a cortisone shot for her RT side lower back pain. Patient is asking if we can refer her for the shot. documented in this encounter Plan of Treatment Upcoming Encounters Date Type Department Care Team (Late st Contact Info) Description 09/06/2024 10:40 AM CDT Office Visit [facility] Medical Group Family & Internal Medicine - [address] [address] Bianca Aggarwal FNP [address] [place] [address] Scheduled Referrals Name Type Priority Associated Diagnoses Orde r Schedule Ambulatory Referral to Pain Management Referral Routine Low back pain Ordered: 01/01/2022 documented as of this encounter Visit Diagnoses Diagnosis Low back pain- Primary Lumbago documented in this encounter Additional Health Concerns Assessment Noted Time PHQ-9 Depression Total Score: 4 09/12/19 22 11:24 AM CDT documented as of this encounter Care Teams Vest Busheler Relationship Specialty Start Date End Date Bianca Aggarwal FNP [address] [place] [address] PCP - General Nurse Practitioner Family 05/20/20 documented as of this encounter
--- OUTSIDE RECORDS SUMMARY | 2024-04-04 19:43 | XMS_ITS | Encounter Summary ---
Author Organization [facility] Address [address] [place] [address]. [place], [place] [address] [place] [address] Care Team Providers Care Yarn Hauler Name Role Phone Bianca Aggarwal JAVA CORE DEVELOPER Primary Care Provider [phone] Encounter Details Date Type Department Care Team (Late Contact Info) Description 05/20/2020 Orders Only [facility] Family & Internal Medicine [address] [address] Laurie Penny, ASTRID Social History Tobacco Use Types Packs/Day Years [...] on file Legal Sex Female 1:23 PM ARCHERY EQUIPMENT REPAIRER Gender Identity Not on file Sexual Orientation Not on file COVID-19 Exposure Response Date Recorded In the last month, have you been in contact with someone who was confirmed or suspected to have Coronavirus / COVID-19? No / Unsure 05/20/2020 1:51 PM ARCHERY EQUIPMENT REPAIRER documented as of this encounter Plan of Treatment Upcoming Encounters Date Type Department Care Team (Late Contact Info) Description 09/06/2024 10:40 AM CDT Office Visit [facility] Medical [facility] Family & Internal Medicine [address] [address] Bianca Aggarwal FNP [address] [place] [address] documented as of this encounter Visit Diagnoses Not on filedocumented in this encounter Additional Health Concerns Assessment Noted Time PHQ-9 Depression Total Score: 3 05/20/19 21 3:25 PM ARCHERY EQUIPMENT REPAIRER documented as of this encounter Care Teams Yarn Hauler Relationship Specialty Start Date End Date Bianca Aggarwal FNP [facility] [place] [address] PCP - General Nurse Practitioner Family 05/20/20 documented as of this encounter
--- OUTSIDE RECORDS SUMMARY | 2024-04-04 19:43 | XMS_ITS | Encounter Summary ---
Author Organization [facility] Address [address] [place] [address]. [place] [address] [place] [address] Care Team Providers Care Auto Service Mechanic Name Role Phone Bianca Aggarwal Primary Care Provider [phone] Encounter Details Date Type Department Care Team (Latest Contact Info) Description 05/20/2020 Travel Social History Tobacco Use Types Packs/Day [...] on file Legal Sex Female 1:23 PM CLERK MANAGER Gender Identity Not on file Sexual Orientation Not on file COVID-19 Exposure Response Date Recorded In the last month, have you been in contact with someone who was confirmed or suspected to have Coronavirus / COVID-19? No / Unsure 05/20/2020 1:51 PM CLERK MANAGER documented as of this encounter Plan of Treatment Upcoming Encounters Date Type Department Care Team (Late st Contact Info) Description 09/06/2024 10:40 AM CDT Office Visit [facility] Medical Group Family & Internal Medicine - [place] [address] [place] [address] [address] [facility] [place] [address] documented as of this encounter Visit Diagnoses Not on filedocumented in this encounter Additional Health Concerns Assessment Noted Time PHQ-9 Depression Total Score: 3 05/20/19 21 3:25 PM CLERK MANAGER documented as of this encounter Care Teams Auto Service Mechanic Relationship Specialty Start Date End Date Bianca Aggarwal FNP [address] [place] [address] PCP - General Nurse Practitioner Family 05/20/20 documented as of this encounter
--- OUTSIDE RECORDS SUMMARY | 2024-04-04 19:43 | XMS_ITS | Encounter Summary ---
Author Organization [facility] Address [address] [place] [address]. [place] [address] [place] [address] Care Team Providers Care Position Description Manager Name Role Phone Bianca Aggarwal Primary Care Provider [phone] Reason for Visit * Reason Comments URI Sx started Blisters Fever blisters Encounter Details Date Type Department Care Team (Late st Contact Info) Description 03/16/2022 10:40 AM UNDERGROUND DISTRIBUTION ENGINEER Office Visit [facility] Medical Group Family & Internal Medicine [facility] [address] [place] [address] Derick Michaud DO [address] [place] [address] URI (Sx started ); Blisters (Fever blisters ) Social History Tobacco Use Types Packs/Day [...] on file Legal Sex Female 1:23 PM UNDERGROUND DISTRIBUTION ENGINEER Gender Identity Not on file Sexual Orientation Not on file COVID-19 Exposure Response Date Recorded In the last 10 days, have yo u been in contact with someone who was confirmed or suspected to have Coronavirus/COVID-19? No / Unsure 03/16/2022 10:38 AM UNDERGROUND DISTRIBUTION ENGINEER documented as of this encounter Last Filed Vital Signs Vital Sign Reading Time Taken Comments Blood Pressure 124/84 03/16/2022 10:54 AM UNDERGROUND DISTRIBUTION ENGINEER Pulse 79 03/16/2022 10:54 AM UNDERGROUND DISTRIBUTION ENGINEER Temperature 36.7 ??C (98.1 ??F) 03/16/2022 1 0:54 AM UNDERGROUND DISTRIBUTION ENGINEER Respiratory Rate 16 03/16/2022 10:5 4 AM UNDERGROUND DISTRIBUTION ENGINEER Oxygen Saturation 97% 03/16/2022 10: 54 AM UNDERGROUND DISTRIBUTION ENGINEER Inhaled Oxygen Concentration - - Weight 101.5 kg (223 lb 12.8 oz) 2021 10:54 AM UNDERGROUND DISTRIBUTION ENGINEER Height 170.2 cm (5' 7 ) 03/16/2022 10:5 4 AM UNDERGROUND DISTRIBUTION ENGINEER Body Mass Index 35.05 03/16/2022 10:54 AM UNDERGROUND DISTRIBUTION ENGINEER documented in this encounter Progress Notes * Derick Michaud, - 03/16/2022 10:40 AM CST Images from the original note were not included. GENERAL OFFICE VISIT Encounter Date: 03/16/2022 Chief Complaint: 67-year-old female presents for URI (Sx started ) and Blisters (Fever blisters ) HPI: Patient states symptoms have been present for 5 days. Symptoms include fever blisters, sore throat,sneezing, runny nose, cough, chills, and doesn't feel good. Did have one episode of vomiting but this has resolved. Pertinent negatives include Abdominal Pain, Fevers, Chest Pain, SOB, Myalgias andRash. Patient has no sick contacts. OTC medications tried include possible Walphen. Pt is due for regular screening labs for her HTN, RA, and atrial tachycardia. Will order today. Review of Systems Constitutional: Positive for chills. Negative for fever. HENT: Positive for congestion, ear pain and sore throat. Respiratory: Positive for cough. Gastrointestinal: Positive for vomiting. Negative for abdominal pain. Genitourinary: Negative for dysuria. Skin: Negative for rash. Neurological: Positive for headaches. Patient Active Problem List Diagnosis ??? Cardiac murmur ??? Dizziness ??? Primary hypertension ??? High alkaline phosphatase ??? Hypercholesterolemia ??? Hypokalemia ??? Left atrial enlargement ??? 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 Obstructive sleep apnea ??? 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 Atrial tachycardia (CMS/HCC) ??? Ventricular tachycardia (CMS/HCC) ??? Palpitations ??? Rheumatoid arthritis involving multiple sites with positive rheumatoid factor (CMS/HCC) ??? Osteopenia, unspecified location ??? OAB (overactive bladder) ??? Generalized OA ??? Gastroesophageal reflux disease, unspecified whether esophagitis present ??? Class 1 obesity due to excess calories with serious comorbidity and body mass index (BMI) of 34.0 to 34.9 in adult ??? History of atrial fibrillation ??? Family history of ischemic heart disease and other diseases of the circulatory system ??? Family history of ischemic heart disease and other diseases of the circulatory system ??? Mixed stress and urge urinary incontinence ??? Leukocytes in urine ??? Chronic diarrhea ??? Irritable bowel syndrome with diarrhea ??? Benign paroxysmal positional vertigo due to bilateral vestibular disorder ??? Venous insufficiency ??? Leg edema ??? Wart on thumb ??? History of meniscal tear ??? H/O right knee surgery ??? Common wart Past Medical History: Diagnosis Date ??? A-fib (CMS/HCC) ??? Hyperlipidemia ??? Hypertension ??? Ventricular tachyarrhythmia (CMS/HCC) Past Surgical History: Procedure Laterality Date ??? CHOLECYSTECTOMY ??? HYSTERECTOMY ??? KNEE ARTHROPLASTY Bilateral Family History Problem Relation Name Age of Onset ??? Aneurysm Mother ??? Heart Disease Father ??? Heart Disease Brother Social History Socioeconomic History ??? Marital status: Spouse name: Not on file ??? Number of children: Not on file ??? Years of education: Not on file ??? Highest education level: Not on file Occupational History ??? Not on file Tobacco Use ??? Smoking status: Never ??? Smokeless tobacco: Never Vaping Use ??? Vaping Use: Never used Substance and Sexual Activity ??? Alcohol use: Never ??? Drug use: Never ??? Sexual activity: Not on file Other Topics Concern ??? Not on file Social History Narrative ??? Not on file Social Determinants of Health Financial Resource Strain: Not on file Food Insecurity: Not on file Transportation Needs: Not on file Physical Activity: Not on file Stress: Not on file Social Connections: Not on file Intimate Partner Violence: Not on file Housing Stability: Not on file Immunization History Administered Date(s) Administered ??? Fluarix 02/02/2015 ? ? Fluzone High Dose - >Age 65 (Prefilled Syringe) 01/27/2022 ??? Influenza Adult (Generic) 01/17/2014 Current Outpatient Medications Medication Sig Dispense Refill ??? alendronate 35 MG tablet TAKE 1 TABLET BY MOUTH BY MOUTH EVERY WEEK ??? ALPRAZolam 0.25 MG tablet Take one tablet one hour prior to your MRI and, if not effective, youcan may take another tablet. You must have a subway train driver to take this medciation 4 tablet 0 ??? amLODIPine (NORVASC) 10 MG tablet TAKE ONE TABLET BY MOUTH DAILY STOP TAKING 5MG TABLETS 90 tablet 0 ??? amoxicillin-clavulanate (AUGMENTIN) 875-125 MG tablet Take 1 tablet (875 mg total) by mouth 2 (two) times daily for 10 days. 20 tablet 0 ??? atorvastatin 80 MG tablet nightly at bedtime. ??? benzonatate (TESSALON PERLES) 100 MG capsule Take 1-2 capsules (100-200 mg total) by mouth 3 (three) times daily as needed for Cough. 40 capsule 0 ??? celecoxib 200 MG capsule Take 200 mg by mouth 2 (two) times daily. ??? ELIQUIS 5 MG tablet Take 5 mg by mouth 2 (two) times daily. ??? estradiol (ESTRACE) 0.5 MG tablet daily. ??? estradiol 1 MG tablet Take 1.5 mg by mouth daily. ??? fludrocortisone 0.1 MG tablet Take 0.1 mg by mouth 3 (three) times daily. ??? furosemide 20 MG tablet Take 20 mg by mouth in the morning. ??? lisinopril 40 MG tablet Take 40 mg by mouth daily. ??? magnesium oxide 400 (241.3 Mg) MG tablet Take 400 mg by mouth daily. ??? meclizine 25 MG tablet Take 25 mg by mouth 3 (three) times daily as needed. ??? methylPREDNISolone, MATTHEW, (MEDROL DOSEPAK) 4 MG tablet 6 TABLETS ON DAY ONE, 5 TABLETS DAY TWO, 4 TABLETS DAY THREE, 3 TABLETS DAY FOUR, 2 TABLETS DAY FIVE, AND 1 TABLET DAY SIX 1 each 0 ??? Multiple Vitamins-Minerals (PRESERVISION AREDS) capsule Take 1 capsule by mouth daily. ??? omeprazole 40 MG capsule TAKE 1 CAPSULE BY MOUTH EVERY DAY IN THE MORNING ??? potassium chloride 20 MEQ packet Take 20 mEq by mouth daily. ??? potassium chloride CR 20 MEQ tablet ??? sotalol 80 MG tablet Take 40 mg by mouth 2 (two) times daily. ??? spironolactone 25 MG tablet Take 25 mg by mouth in the morning. ??? tiZANidine HCl 2 MG Cap Take one capsule three times daily as needed for pain/muscle spasm. 30 capsule 0 ??? traMADol 50 MG tablet Take 50 mg by mouth 3 (three) times daily. No current facility-administered medications for this visit. Current Outpatient Medications on File Prior to Visit Medication Sig ??? alendronate 35 MG tablet TAKE 1 TABLET BY MOUTH BY MOUTH EVERY WEEK ??? ALPRAZolam 0.25 MG tablet Take one tablet one hour prior to your MRI and, if not effective, youcan may take another tablet. You must have a subway train driver to take this medciation ??? amLODIPine (NORVASC) 10 MG tablet TAKE ONE TABLET BY MOUTH DAILY STOP TAKING 5MG TABLETS ??? atorvastatin 80 MG tablet nightly at bedtime. ??? celecoxib 200 MG capsule Take 200 mg by mouth 2 (two) times daily. ??? ELIQUIS 5 MG tablet Take 5 mg by mouth 2 (two) times daily. ??? estradiol (ESTRACE) 0.5 MG tablet daily. ??? estradiol 1 MG tablet Take 1.5 mg by mouth daily. ??? fludrocortisone 0.1 MG tablet Take 0.1 mg by mouth 3 (three) times daily. ??? furosemide 20 MG tablet Take 20 mg by mouth in the morning. ??? lisinopril 40 MG tablet Take 40 mg by mouth daily. ??? magnesium oxide 400 (241.3 Mg) MG tablet Take 400 mg by mouth daily. ??? meclizine 25 MG tablet Take 25 mg by mouth 3 (three) times daily as needed. ??? Multiple Vitamins-Minerals (PRESERVISION AREDS) capsule Take 1 capsule by mouth daily. ??? omeprazole 40 MG capsule TAKE 1 CAPSULE BY MOUTH EVERY DAY IN THE MORNING ??? potassium chloride 20 MEQ packet Take 20 mEq by mouth daily. ??? potassium chloride CR 20 MEQ tablet ??? sotalol 80 MG tablet Take 40 mg by mouth 2 (two) times daily. ??? spironolactone 25 MG tablet Take 25 mg by mouth in the morning. ??? tiZANidine HCl 2 MG Cap Take one capsule three times daily as needed for pain/muscle spasm. ??? traMADol 50 MG tablet Take 50 mg by mouth 3 (three) times daily. No current facility-administered medications on file prior to visit. Allergies Allergen Reactions ??? Flecainide Other (see comment) and Palpitations ??? Morphine Nausea Only Objective: Filed Vitals: 03/16/22 1054 BP: 124/84 Pulse: 79 Resp: 16 Temp: 98.1 ??F (36.7 ??C) TempSrc: Skin SpO2: 97% Weight: 101.5 kg (223 lb 12.8 oz) Height: 5' 7 (1.702 m) Physical Exam Vitals and nursing note reviewed. HENT: Head: Normocephalic and atraumatic. Right Ear: Tympanic membrane, ear canal and external ear normal. Left Ear: Tympanic membrane, ear canal and external ear normal. Mouth/Throat: Pharynx: Posterior oropharyngeal erythema present. No oropharyngeal exudate. Eyes: General: No scleral icterus. Conjunctiva/sclera: Conjunctivae normal. Cardiovascular: Rate and Rhythm: Normal rate and regular rhythm. Heart sounds: Normal heart sounds. No murmur heard. No friction rub. No gallop. Pulmonary: Effort: Pulmonary effort is normal. No respiratory distress. Breath sounds: Normal breath sounds. No wheezing or rales. Abdominal: Palpations: Abdomen is soft. Tenderness: There is no abdominal tenderness. Musculoskeletal: Cervical back: Neck supple. Lymphadenopathy: Cervical: No cervical adenopathy. Skin: General: Skin is warm and dry. Findings: No rash. Neurological: Mental Status: She is alert and oriented to person, place, and time. Psychiatric: Mood and Affect: Affect normal. Office Visit on 03/16/2022 Component Date Value Ref Range Status ??? CORONAVIRUS ANTIGEN IA 03/16/2022 NEGATIVE NEGATIVE Final ??? INFLUENZA A 03/16/2022 NEGATIVE NEGATIVE Final ??? INFLUENZA B 03/16/2022 NEGATIVE NEGATIVE Final Assessment & Plan: Brenna was seen today for uri and blisters. Diagnoses and all orders for this visit: Acute non-recurrent maxillary sinusitis - amoxicillin-clavulanate (AUGMENTIN) 875-125 MG tablet; Take 1 tablet (875 mg total) by mouth 2 (two) times daily for 10 days. - methylPREDNISolone, MATTHEW, (MEDROL DOSEPAK) 4 MG tablet; 6 TABLETS ON DAY ONE, 5 TABLETS DAY TWO, 4TABLETS DAY THREE, 3 TABLETS DAY FOUR, 2 TABLETS DAY FIVE, AND 1 TABLET DAY SIX - benzonatate (TESSALON PERLES) 100 MG capsule; Take 1-2 capsules (100-200 mg total) by mouth 3 (three) times daily as needed for Cough. Sore throat - CORONAVIRUS (COVID-19) INFLUENZA A & B ANTIGEN IA PANEL - CORONAVIRUS (COVID 19) PCR; Future Sinus congestion - CORONAVIRUS (COVID-19) INFLUENZA A & B ANTIGEN IA PANEL - CORONAVIRUS (COVID 19) PCR; Future Essential (primary) hypertension - CBC W/DIFF AUTOMATED; Future - COMPREHENSIVE METABOLIC PANEL; Future - TSH W/REFLEX; Future - LIPID PANEL; Future - VITAMIN D, 25 OH; Future - VENIPUNC ARM DRAW - HEPATITIS C ANTIBODY; Future - CBC W/DIFF AUTOMATED - COMPREHENSIVE METABOLIC PANEL - TSH W/REFLEX - LIPID PANEL - VITAMIN D, 25 OH BMI 35.0-35.9,adult - CBC W/DIFF AUTOMATED; Future - COMPREHENSIVE METABOLIC PANEL; Future - TSH W/REFLEX; Future - LIPID PANEL; Future - VITAMIN D, 25 OH; Future - VENIPUNC ARM DRAW - HEPATITIS C ANTIBODY; Future - CBC W/DIFF AUTOMATED - COMPREHENSIVE METABOLIC PANEL - TSH W/REFLEX - LIPID PANEL - VITAMIN D, 25 OH Need for hepatitis C screening test - VENIPUNC ARM DRAW - HEPATITIS C ANTIBODY; Future Rheumatoid arthritis involving multiple sites with positive rheumatoid factor (CMS/HCC) - CBC W/DIFF AUTOMATED; Future - COMPREHENSIVE METABOLIC PANEL; Future Atrial tachycardia (CMS/HCC) - CBC W/DIFF AUTOMATED; Future - COMPREHENSIVE METABOLIC PANEL; Future Discussion/Summary: Will treat as per above given negative findings. Call back if not improving. Will order screening labs as per above. F/u with regular PCP for follow-up on these conditions otherwise. F/u as needed for above acute issues. Pt v/u. Derick Michaud DO RGROUND DISTRIBUTION ENGINEER documented in this encounter Plan of Treatment Upcoming Encounters Date Type Department Care Team (Late st Contact Info) Description 09/06/2024 10:40 AM CDT Office Visit [facility] Medical Group Family & Internal Medicine [place] [id number] [place] [address] Jasen Bianca, PILOT PLANT SUPERVISOR [address] [place] [address] [phone] documented as of this encounter Procedures Procedure Name Priority Date/Time Associated Diagnosis Comments CORONAVIRUS (COVID 19) PCR Routine 03/16/2022 2:00 PM UNDERGROUND DISTRIBUTION ENGINEER Sore throat Sinus congestion HEPATITIS C ANTIBODY W/RFX TO HCV RNA Routine 03/16/2022 11:51 AM UNDERGROUND DISTRIBUTION ENGINEER Need for hepatitis C screening test TSH W/REFLEX Routine 03/16/2022 11:51 AM UNDERGROUND DISTRIBUTION ENGINEER Essential (primary) hypertension BMI 35.0-35.9,adult COMPREHENSIVE METABOLIC PANEL Routine 03/16/2022 11:51 AM UNDERGROUND DISTRIBUTION ENGINEER Essential (primary) hypertension BMI 35.0-35.9,adult LIPID PANEL Routine 03/16/2022 11:51 AM UNDERGROUND DISTRIBUTION ENGINEER Essential (primary) hypertension BMI 35.0-35.9,adult CBC W/DIFF AUTOMATED Routine 03/16/2022 11:51 AM UNDERGROUND DISTRIBUTION ENGINEER Essential (primary) hypertension BMI 35.0-35.9,adult VITAMIN D, 25 OH Routine 03/16/2022 11:5 1 AM UNDERGROUND DISTRIBUTION ENGINEER Essential (primary) hypertension BMI 35.0-35.9,adult VENIPUNC ARM DRAW Routine 03/16/2022 11: 33 AM UNDERGROUND DISTRIBUTION ENGINEER Essential (primary) hypertension BMI 35.0-35.9,adult Need for hepatitis C screening test CORONAVIRUS (COVID-19) INFLUENZA A & B ANTIGEN IA PANEL Routine 03/16/2022 Sore throat Sinus congestion documented in this encounter Results * CORONAVIRUS (COVID 19) PCR (03/16/2022 2:00 PM UNDERGROUND DISTRIBUTION ENGINEER) SPEC DESCRIPTION NASAL 03/16/20 2:31 PM UNDERGROUND DISTRIBUTION ENGINEER [facility] CORONAVIRUS SARS COV 2 PCR (RESP) NEGATIVE NEGATIVE 03/17/2022 5:52 AM UNDERGROUND DISTRIBUTION ENGINEER [facility] Comment: THE SARS-CoV-2 TEST HAS BEEN AUTHORIZED BY THE FDA UNDER AN EUA FOR USE BY AUTHORIZED LABORATORIES. PERFORMED BY NUCLEIC ACID AMPLIFICATION PCR FIRST TEST NO 03/16/2022 2:31 PM [facility] EMPLOYED IN HEALTHCARE NO 03/16/2022 2:31 PM [facility] SYMPTOMATIC DEFINED BY CDC YES 03/16/2022 2:31 PM UNDERGROUND DISTRIBUTION ENGINEER [facility] DATE OF SYMPTOM ONSET 2022031103/16/2022 2:31 PM UNDERGROUND DISTRIBUTION ENGINEER [facility] HOSPITALIZATION STATUS NO 03/16/2022 2:31 PM [facility] PATIENT IN ICU NO 03/16/2022 2:31 PM [facility] NO 03/16/2022 2:31 PM [facility] NASOPHARYNGEAL SWAB / Unknown 03/16/2022 2:00 PM UNDERGROUND DISTRIBUTION ENGINEER us Derick Michaud DO MICROBIOLOGY - GENERAL O RDERABLES Final Result [facility] [address] [place] [address], * HEPATITIS C ANTIBODY W/RFX TO HCV RNA ([facility] ONLY) (03/16/2022 11:51 AM UNDERGROUND DISTRIBUTION ENGINEER) Pathologist [facility] HEPATITIS C AB NON-REACT DIAZ NON-REACT DIAZ [facility] SIGNAL TO CUTOFF 0.09 <1.00 [facility] Comment: HCV antibody was non-reactive. There is no laboratory evidence of HCV infection. In most cases, no further action is required. However, if recent HCV exposure is suspected, a test for HCV RNA (test code 94008) is suggested. For additional information please refer to http://education.[employer]/faq/AYM81m6 (This link is being provided for informational/ educational purposes only.) 03/16/2022 11:5 1 AM UNDERGROUND DISTRIBUTION ENGINEER 03/17/2022 8:31 AM UNDERGROUND DISTRIBUTION ENGINEER Narrative Resulting Agency Comment Performing Organization Information: ?Site ID: [email or web address] ?Name: [email or web address] ?Address: [address] [place], [place] [address] [address] ?Director: Naman Andrews D.O., MPH Derick Michaud DO LABORATORY Final Re sult [facility] Andi MORGAN [employer] [facility] [address] [place] [address], * (ABNORMAL) VITAMIN D, 25 OH (03/16/2022 11:51 AM UNDERGROUND DISTRIBUTION ENGINEER) Pathologist [facility] VITAMIN D 25 HYDROXY TOTAL S/P/B 39.2 >29.9 ng/mL [facility] Comment: Vitamin D, 25-Hydroxy reports concentrations of two common forms, 25-OHD2 and 25-OHD3. 25-OHD3 indicates both endogenous production and supplementation. 25-OHD2 is an indicator of exogenous sources, such as diet or supplementation. Therapy is based on measurement of Total 25-OHD, with levels <20 ng/mL indicative of Vitamin D deficiency, while levels between 20 ng/mL and 30 ng/mL suggest insufficiency. Optimal levels are >=30 ng/mL. Vitamin-D is fat-soluble and therefore inadvertent or intentional ingestion of excessively high amounts could be toxic. Studies in children and adults suggest blood levels would need to exceed 150 ng/mL before there is any concern. Jose Boyer Bischoff-ferrari HA et al. Evaluation, treatment, and prevention of vitamin D deficiency: an Endocrine Society clinical practice guideline. J Clin Endocrinol Metab. 2011;96(7):1911-30.This test is performed by a Liquid Chromatography-Tandem Mass Spectrometry (LC-MS/MS) method. This test was developed and its performance characteristics determined by the [employer]. It has not been cleared or approved by the U.S. FDA. The [employer]. is regulated under Clinical Laboratory Improvement Amendments (CLIA) as qualified to perform high-complexity testing. This test is used for clinical purposes. It should not be regarded as investigational or for research. Vitamin D, 25-Hydroxy reports concentrations of two common forms, 25-OHD2 and 25-OHD3. 25-OHD3 indicates both endogenous production and supplementation. 25-OHD2 is an indicator of exogenous sources, such as diet or supplementation. Therapy is based on measurement of Total 25-OHD, with levels <20 ng/mL indicative of Vitamin D deficiency, while levels between 20 ng/mL and 30 ng/mL suggest insufficiency. Optimal levels are > or = 30 ng/mL. Vitamin D is fat-soluble and therefore inadvertent or intentional ingestion of excessively high amounts could be toxic. Studies in children and adults suggest blood levels would need to exceed 150 ng/mL before there is any concern. Jose Boyer Bischoff-ferrari HA, et al., Evaluation, treatment, and prevention of vitamin D deficiency: an Endocrine Society clinical practice guideline. J Clin. Endocrinol. Metab. 2011;96(7):1911-30. VITAMIN D 25 HYDROXY D3 S/P/B 39.2 ng/mL [facility] Comment: This test was developed and its analytical performance characteristics have been determined by [employer]. It has not been cleared or approved by the FDA. This assay has been validated pursuant to the CLIA regulations and is used for clinical purposes. VITAMIN D 25 HYDROXY D2 S/P/B <1.0(L) ng/mL [facility] Comment: This test was developed and its analytical performance characteristics have been determined by [employer]. It has not been cleared or approved by the FDA. This assay has been validated pursuant to the CLIA regulations and is used for clinical purposes. 03/16/2022 11:5 1 AM UNDERGROUND DISTRIBUTION ENGINEER 03/17/2022 5:23 AM UNDERGROUND DISTRIBUTION ENGINEER Narrative Resulting Agency Comment Performing Organization Information: ?Site ID: [id number] ?Name: [facility] ?Address: [address] [place] [address], [facility] [address] [place] [address] ?Director: David Pedroza MD us Derick Michaud DO LABORATORY Final Re sult [facility] [facility] [address], [facility] [address] [place] [address], * LIPID PANEL (03/16/2022 11:51 AM UNDERGROUND DISTRIBUTION ENGINEER) CHOLESTEROL 153 <200 mg/dL [facility] HDL 63 > OR = 50 mg/dL [facility] TRIGLYCERIDES 90 <150 mg/dL [facility] LDL (CALCULATED) 73 mg/dL (calc) [facility] Comment: Reference range: <100 Desirable range <100 mg/dL for primary prevention; ?? <70 mg/dL for patients with CHD or diabetic patients with > or = 2 CHD risk factors. LDL-C is now calculated using the Thierno-Franci calculation, which is a validated novel method providing better accuracy than the Friedewald equation in the estimation of LDL-C. Thierno JASSO et al. SAMARA. 2013;310(19): 5106-5935 (http://education.[employer].View[employer]/faq/BZB749) CHOL/HDL RATIO 2.4 <5.0 (calc) [facility] NON HDL CHOLESTEROL 90 <130 mg/dL (calc) [facility] Comment: For patients with diabetes plus 1 major ASCVD risk factor, treating to a non-HDL-C goal of <100 mg/dL (LDL-C of <70 mg/dL) is considered a therapeutic option. 03/16/2022 11:5 1 AM UNDERGROUND DISTRIBUTION ENGINEER 03/17/2022 5:00 AM UNDERGROUND DISTRIBUTION ENGINEER Narrative Resulting Agency Comment Performing Organization Information: ?Site ID: [place] ?Name: [facility] ?Address: [address] [place], [place] [address] [address] ?Director: Naman Andrews D.O., ANYI Derick Michaud DO LABORATORY Final Re sult Performing Organization Address [facility] Co de Phone Number [facility] [facility] [employer] [facility] [id number] [place] [address] [place] [address], * TSH W/REFLEX (03/16/2022 11:51 AM UNDERGROUND DISTRIBUTION ENGINEER) Pathologist [facility] TSH 0.92 0.40 - 4.50 mIU/L [facility] 03/16/2022 11:5 1 AM UNDERGROUND DISTRIBUTION ENGINEER 03/17/2022 5:00 AM UNDERGROUND DISTRIBUTION ENGINEER Narrative Resulting Agency Comment Performing Organization Information: ?Site ID: [id number] ?Name: [facility] ?Address: [address] [place] [phone] ?Director: Naman Andrews D.O. MPH Derick Michaud DO LABORATORY Final Re sult Performing Organization Address [facility] de Phone Number [facility] [facility] [phone] [place] [address] [place] [address], * COMPREHENSIVE METABOLIC PANEL (03/16/2022 11:51 AM UNDERGROUND DISTRIBUTION ENGINEER) Pathologist [facility] GLUCOSE 79 65 - 99 mg/dL [facility] Comment: ? Fasting reference interval BUN 15 7 - 25 mg/dL [facility] CREATININE S/P/B 0.75 0.50 - 1.05 mg/dL [facility] [employer] [facility] GFR ESTIMATE 88 > OR = 60 mL/min/1 .73m2 [facility] [employer] [facility] Comment: The eGFR is based on the CKD-EPI 2020 equation. To calculate the new eGFR from a previous Creatinine or Cystatin C result, go to https://www.kidney.org/professionals/ kdoqi/gfr%5Fcalculator BUN CREATININE RATIO NOT APPLICABLE 6 - 22 (calc) [employer] [facility] SODIUM S/P/B 141 135 - 146 mmol/L [employer] POTASSIUM S/P/B 4.3 3.5 - 5.3 mmol/L [employer] [facility] CHLORIDE S/P/B 103 98 - 110 mmol/L [employer] [facility] CO2 32 20 - 32 mmol/L [employer] [facility] CALCIUM S/P/B 8.9 8.6 - 10.4 mg/dL [facility] TOTAL PROTEIN S/P/B 6.6 6.1 - 8.1 g/dL [employer] ALBUMIN S/P/B 4.0 3.6 - 5.1 g/dL [employer] GLOBULIN 2.6 1.9 - 3.7 g/dL (calc) [employer] [facility] ALBUMIN/GLOBULI N RATIO 1.5 1.0 - 2.5 (calc) [employer] [facility] BILIRUBIN TOTAL S/P/B 0.7 0.2 - 1.2 mg/dL [facility] ALKALINE PHOSPHATASE S/P/B 149 37 - 153 U/L [employer] [facility] AST 19 10 - 35 U/L [employer] [facility] ALT 15 6 - 29 U/L [facility] 03/16/2022 11:5 1 AM UNDERGROUND DISTRIBUTION ENGINEER 03/17/2022 5:00 AM UNDERGROUND DISTRIBUTION ENGINEER Narrative Resulting Agency Comment Performing Organization Information: ?Site ID: [place] ?Name: Rui Pichardo ?Address: [address] [place] [address] ?Director: Naman Andrews D.O., MPH us Derick Michaud DO LABORATORY Final Re sult RUI MORGAN [facility] [address] [place] [address], * CBC W/DIFF AUTOMATED (03/16/2022 11:51 AM UNDERGROUND DISTRIBUTION ENGINEER) WBC 6.0 3.8 - 10.8 Thousand/u L [facility] RBC 4.38 3.80 - 5.10 Million/uL [facility] HGB 13.5 11.7 - 15.5 g/dL [facility] HCT 41.9 35.0 - 45.0 % [facility] MCV 95.7 80.0 - 100.0 fL [facility] MCH 30.8 27.0 - 33.0 pg [facility] MCHC 32.2 32.0 - 36.0 g/dL [facility] RDW 13.1 11.0 - 15.0 % [facility] PLT 273 140 - 400 Thousand/u L [facility] [facility] MPV 10.3 7.5 - 12.5 fL [employer] [facility] ABS. NEUTROPHILS 3,960 1,500 - 7,800 cells/uL [facility] ABS. LYMPHOCYTES 1,206 850 - 3,900 cells/uL [employer] [facility] ABS. MONOCYTES 624 200 - 950 cells/uL [facility] [facility] ABS. EOSINOPHILS 180 15 - 500 cells/uL [facility] [facility] ABS. BASOPHILS 30 0 - 200 cells/uL [facility] SEG NEUTROPHILS 66 % QUES [employer] [facility] LYMPHOCYTES 20.1 % [facility] [facility] MONOCYTES 10.4 % [facility] [facility] EOSINOPHILS 3.0 % [facility] SHA BASOPHILS 0.5 % [facility] 03/16/2022 11:5 1 AM UNDERGROUND DISTRIBUTION ENGINEER 03/17/2022 5:00 AM UNDERGROUND DISTRIBUTION ENGINEER Narrative Resulting Agency Comment Performing Organization Information: ?Site ID: [place] ?Name: [email or web address] ?Address: [address] [place], [place] [address] [address] ?Director: Naman Andrews D.O., MPH us Derick Michaud DO LABORATORY Final Re sult [facility] SUZIE DALTON MORGAN [employer] [facility] [address] [place] [address], * CORONAVIRUS (COVID-19) INFLUENZA A & B ANTIGEN IA PANEL (03/16/2022) Pathologist [facility] CORONAVIRUS ANTIGEN IA NEGATIVE NEGATIVE [facility] INFLUENZA A NEGATIVE NEGATIVE [facility] INFLUENZA B NEGATIVE NEGATIVE [facility] Internal Control: VALID VALID [facility] NASAL STRUCTURE / Unknown 03/16/2022 Derick Michaud DO MICROBIOLOGY - GENERAL O RDERABLES Final Result [facility] [address] [place] [address], documented in this encounter Visit Diagnoses Diagnosis Acute non-recurrent maxillary sinusitis- Primary Sore throat Acute pharyngitis Sinus congestion Other diseases of nasal cavity and sinuses Essential (primary) hypertension Unspecified essential hypertension BMI 35.0-35.9,adult Body Mass Index 35.0-35.9, adult Need for hepatitis C screening test Special screening examination for other specified viral diseases Rheumatoid arthritis involving multiple sites with positive rheumatoid factor ([facility]/HCC HHS/HCC) Atrial tachycardia ([facility] HHS/HCC) Other specified cardiac dysrhythmias documented in this encounter Additional Health Concerns Infection Onset Date Last Indicated Resolved Time COVID-19 Rule Out 03/16/2022 03/16/2022 03/17/2022 5:53 AM UNDERGROUND DISTRIBUTION ENGINEER Assessment Noted Time PHQ-9 Depression Total Score: 0 01/28/20 22 1:07 PM CDT documented as of this encounter Care Teams Position Description Manager Relationship Specialty Start Date End Date Bianca Aggarwal FNP [address] [place] [address] PCP - General Nurse Practitioner Family 05/20/20 documented as of this encounter
--- OUTSIDE RECORDS SUMMARY | 2024-04-04 19:43 | XMS_ITS | Encounter Summary ---
Author Organization [facility] Address [address] [place] [address]. [place] [address] [place] [address] Care Team Providers Care Buyer Intern Name Role Phone Bianca Aggarwal Primary Care Provider [phone] Encounter Details Date Type Department Care Team (Latest Contact Info) Description 11/27/2020 Travel Social History Tobacco Use Types Packs/Day [...] on file Legal Sex Female 1:23 PM OPERATIONS MANAGEMENT TRAINEE Gender Identity Not on file Sexual Orientation [...] Description 09/06/2024 10:40 AM CDT Office Visit [facility] Medical [facility] Family & Internal Medicine - [place] [id number] [place] [address] Bianca Aggarwal FNP [address] [place] [address] documented as of this encounter Visit Diagnoses Not on filedocumented in this encounter Additional Health Concerns Assessment Noted Time PHQ-9 Depression Total Score: 3 05/20/19 21 3:25 PM OPERATIONS MANAGEMENT TRAINEE documented as of this encounter Care Teams Buyer Intern Relationship Specialty Start Date End Date Bianca Aggarwal FNP [address] [place] [address] PCP - General Nurse Practitioner Family 05/20/20 documented as of this encounter
--- OUTSIDE RECORDS SUMMARY | 2024-04-04 19:43 | XMS_ITS | Encounter Summary ---
Author Organization [facility] Address [address] [place] [address]. [place] [address] [place] [address] Care Team Providers Care Business Librarian Name Role Phone Bianca Aggarwal Primary Care Provider [phone] Encounter Details Date Type Department Care Team (Latest Contact Info) Description 06/22/2021 Scan HEALTH INFO SRVCS Scanned, Documents Social [...] on file Legal Sex Female 1:23 PM MOLD PRESS OPERATOR Gender Identity Not on file Sexual Orientation Not on file documented as of this encounter Plan of Treatment Upcoming Encounters Date Type Department Care Team (Late st Contact Info) Description 09/06/2024 10:40 AM CDT Office Visit [facility] Medical Group Family & Internal Medicine - [place] [address] [place] [address] Bianca Aggarwal FNP [address] [place] [address] documented as of this encounter Visit Diagnoses Not on filedocumented in this encounter Additional Health Concerns Assessment Noted Time PHQ-9 Depression Total Score: 3 05/20/19 21 3:25 PM MOLD PRESS OPERATOR documented as of this encounter Care Teams Business Librarian Relationship Specialty Start Date End Date Bianca Aggarwal FNP [address] [place] [address] PCP - General Nurse Practitioner Family 05/20/20 documented as of this encounter
--- OUTSIDE RECORDS SUMMARY | 2024-04-04 19:43 | XMS_ITS | Encounter Summary ---
Author Organization [facility] Address [address] [place] [address]. [place] [address] [place] [address] Care Team Providers Care Cellar Worker Name Role Phone Jasen Bianca [place] Primary Care Provider [phone] Reason for Visit * Reason Onset Date Comments Results 03/17/2022 Encounter Details Date Type Department Care Team (Late st Contact Info) Description 03/17/2022 Telephone [facility] Medical Group Family & Internal Medicine [place] [address] [place] [address] Bianca Aggarwal FNP [facility] [place], [place] [id number] Results Social History Tobacco Use Types Packs/Day [...] on file Legal Sex Female 1:23 PM CUFFER Gender Identity Not on file Sexual Orientation Not on file COVID-19 Exposure Response Date Recorded In the last 10 days, have yo u been in contact with someone who was confirmed or suspected to have Coronavirus/COVID-19? No / Unsure 03/16/2022 10:38 AM CUFFER documented as of this encounter Progress Notes * Cheyenne Bob MA - 03/17/2022 12:41 PM CST Spoke with patient and informed her of labs results. Patient v/u. ----- Message from Derick Michaud DO sent at 03/17/2022 10:35 AM CUFFER ----- COVID is negative. Screening labs are WNL; can repeat in 1 year. Should still f/u with regular PCP. ER ER documented in this encounter Plan of Treatment Upcoming Encounters Date Type Department Care Team (Late st Contact Info) Description 09/06/2024 10:40 AM CDT Office Visit [facility] Medical Group Family & Internal Medicine [address] [address] Bianca Aggarwal FNP [address] [place] [address] documented as of this encounter Visit Diagnoses Not on filedocumented in this encounter Additional Health Concerns Infection Onset Date Last Indicated Resolved Time COVID-19 Rule Out 03/16/2022 03/16/2022 03/17/2022 5:53 AM CUFFER Assessment Noted Time PHQ-9 Depression Total Score: 0 01/28/20 22 1:07 PM CDT documented as of this encounter Care Teams Cellar Worker Relationship Specialty Start Date End Date Bianca Aggarwal FNP [address] [place] [address] PCP - General Nurse Practitioner Family 05/20/20 documented as of this encounter
--- OUTSIDE RECORDS SUMMARY | 2024-04-04 19:43 | XMS_ITS | Encounter Summary ---
Author Organization [facility] Address [address] [place] [address]. [place] [address] [place] [address] Care Team Providers Care Head Boys Tennis Coach Name Role Phone Bianca Aggarwal Primary Care Provider [phone] Encounter Details Date Type Department Care Team (Latest Contact Info) Description 05/07/2022 Scan HEALTH INFO SRVCS Scanned, Doc Med [...] on file Legal Sex Female 1:23 PM LINING STAMPER Gender Identity Not on file Sexual Orientation Not on file documented as of this encounter Plan of Treatment Upcoming Encounters Date Type Department Care Team (Late st Contact Info) Description 09/06/2024 10:40 AM CDT Office Visit [facility] Medical Group Family & Internal Medicine - [place] [address] [place] [address] Bianca Aggarwal FNP [address] [place] [address] documented as of this encounter Visit Diagnoses Not on filedocumented in this encounter Additional Health Concerns Assessment Noted Time PHQ-9 Depression Total Score: 0 01/28/20 22 1:07 PM CDT documented as of this encounter Care Teams Head Boys Tennis Coach Relationship Specialty Start Date End Date Bianca Aggarwal FNP [address] [place] [address] PCP - General Nurse Practitioner Family 05/20/20 documented as of this encounter
--- OUTSIDE RECORDS SUMMARY | 2024-04-04 19:43 | XMS_ITS | Encounter Summary ---
Author Organization [facility] Address [address] [place] [address]. [place] [address] [place] [address] Care Team Providers Care Hybrid Derivatives Trader Name Role Phone Bianca Aggarwal Primary Care Provider [phone] Encounter Details Date Type Department Care Team (Latest Contact Info) Description 03/03/2022 Scan HEALTH INFO SRVCS Scanned, Doc Med [...] on file Legal Sex Female 1:23 PM BOX PERSON Gender Identity Not on file Sexual Orientation Not on file documented as of this encounter Plan of Treatment Upcoming Encounters Date Type Department Care Team (Late st Contact Info) Description 09/06/2024 10:40 AM CDT Office Visit [facility] Medical Group Family & Internal Medicine - [place] [address] [place] [address] Bianca Aggarwal FNP [address] [place] [address] documented as of this encounter Visit Diagnoses Not on filedocumented in this encounter Additional Health Concerns Assessment Noted Time PHQ-9 Depression Total Score: 0 01/28/20 22 1:07 PM CDT documented as of this encounter Care Teams Hybrid Derivatives Trader Relationship Specialty Start Date End Date Bianca Aggarwal FNP [address] [place] [address] PCP - General Nurse Practitioner Family 05/20/20 documented as of this encounter
--- OUTSIDE RECORDS SUMMARY | 2024-04-04 19:43 | XMS_ITS | Encounter Summary ---
Author Organization [facility] Address [address] [place] [address]. [place] [address] [place] [address] Care Team Providers Care Welding Systems And Equipment Repairer Name Role Phone Bianca Aggarwal ONDINA Primary Care Provider [phone] Reason for Visit * Reason Onset Date Comments Follow Up Call 02/23/2021 Encounter Details Date Type Department Care Team (Late st Contact Info) Description 02/23/2021 Telephone [facility] Medical Group Family Medicine [facility] [address] [place] [address] Carol Obregon NP [address] [place] [phone] Follow Up Call Social History Tobacco Use Types Packs/Day Years [...] on file Legal Sex Female 1:23 PM KEG INSPECTOR Gender Identity Not on file Sexual Orientation Not on file documented as of this encounter Progress Notes * Anila Morejon - 02/25/2021 9:21 AM CST Patient called back in, I advised her the following. Patient states that she will call in Tuesday with the BP readings. INSPECTOR * Laurie Penny MA - 02/25/2021 9:17 AM CST LM 02/25/21 tn INSPECTOR * ONDINA Pope - 02/25/2021 9:07 AM CST Have her keep monitoring her blood pressure at home and keep a log. INSPECTOR * Laurie Penny MA - 02/24/2021 5:10 PM CST Patient states that she is non weight bearing at this time and her f/u with them is 03/17/21. States she is unable to get here until after that. She will monitor her bp at home. States she is ok withmedication adjustment until then. Wanting you to know that she is in a lot of pain at this time from surgery yesterday. tn INSPECTOR INSPECTOR * ONDINA Pope - 02/24/2021 5:06 PM CST We need to have her come in for her elevated blood pressure issues. Is she taking her medication? INSPECTOR * Anila Morejon - 02/23/2021 3:11 PM CST Patient called back in, no one was free. She states that no she did not go to the ER, states that she is Burnt out on ER's She has her BP reading, 11/5: @ 11:18 Am, 168/89 11/6: @ 10:16 Am, 156/86 11/6: @ 3:52 Pm, 147/80 117: @ 10:43 Am, 158/107 118: @ 11:34 Am, 168/83 118: @ 3:10 Pm, 168/92 Patient states that she is having surgery tomorrow morning. She fractured her fibula. INSPECTOR * Ashley Khan MA - 02/23/2021 2:58 PM CST lmtc 02/23/21 INSPECTOR * ONDINA Pope - 02/23/2021 2:11 PM CST Can we call and make sure she was seen please? INSPECTOR * Carol Obregon NP - 02/23/2021 2:03 PM CST Home health called driver's education instructor provider 02/20/21 for pt BP 230/120 Home health nurse checked BP manual multiple times Pt personal cuff device best BP was 194/102 Informed home health nurse that pt needs ER eval Home health nurse called pt to inform. INSPECTOR documented in this encounter Plan of Treatment Upcoming Encounters Date Type Department Care Team (Late st Contact Info) Description 09/06/2024 10:40 AM CDT Office Visit [facility] Medical Group Family & Internal Medicine - [address] [address] Bianca Aggarwal FNP [address] [place] [address] documented as of this encounter Visit Diagnoses Not on filedocumented in this encounter Additional Health Concerns Assessment Noted Time PHQ-9 Depression Total Score: 3 05/20/19 21 3:25 PM KEG INSPECTOR documented as of this encounter Care Teams Welding Systems And Equipment Repairer Relationship Specialty Start Date End Date Bianca Aggarwal FNP [address] [place] [address] PCP - General Nurse Practitioner Family 05/20/20 documented as of this encounter
--- OUTSIDE RECORDS SUMMARY | 2024-04-04 19:43 | XMS_ITS | Encounter Summary ---
Author Organization [facility] Address [address] [place] [address]. [place] [address] [place] [address] Care Team Providers Care Bolt Loader Name Role Phone Claribelgoyo Bianca ONDINA Primary Care Provider [phone] Reason for Visit * Reason Onset Date Comments Other 05/07/2021 Encounter Details Date Type Department Care Team (Late st Contact Info) Description 05/07/2021 Telephone [facility] Medical Group Family & Internal Medicine [facility] [address] [place] [address] Bianca Aggarwal FNP [address] [place], [place] [phone] Other Social History Tobacco Use Types Packs/Day Years [...] on file Legal Sex Female 1:23 PM LIQUID CHLORINE OPERATOR Gender Identity Not on file Sexual Orientation Not on file documented as of this encounter Progress Notes * Bre Echevarria MA - 05/07/2021 11:42 AM CST Pt notified and v/u to this. BB 05/07/2021 ID CHLORINE OPERATOR * FARZANA Brown - 05/07/2021 10:58 AM CST Tizanidine sent over May cause drowsiness ID CHLORINE OPERATOR * Laurie Penny MA - 05/07/2021 10:14 AM CST Patient had surgery on leg and foot for a fracture. She was non weight bearing from 02/16/21 [id number]/1/21. She now is weight bearing but having pain in back,hip and groin area. She seen chiropractor today and says he is suggesting muscle relaxers and to contact PCP [facility] ID CHLORINE OPERATOR * Leila Sigala - 05/07/2021 9:34 AM CST She is no longer using walker and her boot has come off, her back and groan are hurting so wants toknow if she can get some muscle relaxes. ID CHLORINE OPERATOR documented in this encounter Plan of Treatment Upcoming Encounters Date Type Department Care Team (Late st Contact Info) Description 09/06/2024 10:40 AM CDT Office Visit [facility] Medical Group Family & Internal Medicine - [address] [address] Bianca Aggarwal FNP [address] [place] [address] documented as of this encounter Visit Diagnoses Diagnosis Acute bilateral low back pain without sciatica- Primary documented in this encounter Additional Health Concerns Assessment Noted Time PHQ-9 Depression Total Score: 3 05/20/19 21 3:25 PM LIQUID CHLORINE OPERATOR documented as of this encounter Care Teams Bolt Loader Relationship Specialty Start Date End Date Bianca Aggarwal FNP [address] [place] [phone] PCP - General Nurse Practitioner Family 05/20/20 documented as of this encounter
--- OUTSIDE RECORDS SUMMARY | 2024-04-04 19:43 | XMS_ITS | Encounter Summary ---
Author Organization [facility] Address [address] [facility] [place] [address] [place] [address] Care Team Providers Care Coverstitch Machine Operator Name Role Phone Bianca Aggarwal Primary Care Provider [phone] Reason for Referral * Consultation (Urgent) - Closed Specialty Diagnoses / Procedures Referred By Janice vergara Referred To Contact GASTROENTEROLOGY Diagnoses Chronic diarrhea Gastroesophageal reflux disease, unspecified whether esophagitis present Bianca Aggarwal FNP [facility] [place] [facility] [place] [address] Phone: tel: fax: [facility] [address] [facility], [address] [place] [address] Phone: tel: fax: Referral ID Status Reason Start Date Expiration Date Visits Re quested Visits Authorized [id number] Closed 11/27/2020 12/29/2021 1 1 Reason for Visit * Reason Comments Dizziness c/o vertigo Urine incontinence Diarrhea x 3 months on and of Encounter Details Date Type Department Care Team (Late st Contact Info) Description 11/27/2020 11:20 AM CDT Office Visit [facility] Medical [facility] Family & Internal Medicine - [place] [address] [place] [address] Bianca Aggarwal FNP [address] [place] [address] Dizziness (c/o vertigo); Urine (incontinence); Diarrhea (x 3 months on and off) Social History Tobacco Use Types Packs/Day Years [...] on file 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 No / Unsure 11/27/2020 10:56 AM CDT documented as of this encounter Last Filed Vital Signs Vital Sign Reading Time Taken Comments Blood Pressure 168/98 11/27/2020 12:00 PM CDT Pulse 71 11/27/2020 11:09 AM CDT Temperature 36.7 ??C (98 ??F) 11/27/2020 11:09 AM CDT Respiratory Rate 16 11/27/2020 11:09 AM CDT Oxygen Saturation 98% 11/27/2020 11:09 AM CDT Inhaled Oxygen Concentration - - Weight 95.3 kg (210 lb) 11/27/2020 11:09 AM CDT Height 170.2 cm (5' 7 ) 11/27/2020 11:09 AM CDT Body Mass Index 32.89 11/27/2020 11:09 AM CDT documented in this encounter Patient Instructions * Patient Instructions* ONDINA Pope - 11/27/2020 11:20 AM CDT Continue current medications as directed and prescribed. Someone will call you about scheduling with GI specialists. Get in to see your urologist as soon as you can for further evaluation and treatment of your overactive bladder. Maintain follow up with your specialists as scheduled Call for any questions or concerns Follow up in one month or sooner if needed documented in this encounter Progress Notes * ONDINA Pope - 11/27/2020 11:20 AM CDTSummary: chronic condition f/u Office Progress Note Reason for Visit: Dizziness (c/o vertigo), Urine (incontinence), and Diarrhea (x 3 months on and off) History of Present Illness: Brenna presents to the office for a f/u of her chronic conditions. Left knee surgery scheduled December [address] Noland. Telma romeo and does follow up with engineering manager regularly. She has recently seen them for testing dueto her continued vertigo. She reports that her testing was normal. Urinary incontinence- Stress and urge incontinence, was on Myrbetric previously but her insurance would not cover this medication. I switched to oxybutynin but she reports that this has not helped with her symptoms. Reports that 5 years ago did have urodynamic evaluation and was advised that she has OAB and was treated for this but it has worsened over the last year or so. She was evaluated at her [facility] last for this. We discussed going to a urologist and she is agreeable to this plan. She has seen a urologist at one time and she will call to get in with him. Chronic diarrhea/IBS- She is still having diarrhea several times a day, for the last 3 months, with some reported urgency. She also reports decreased appetite with this diarrhea. She denies any blood in her stool. We had discussed getting her into a new GI during her last office but she has not done this as of yet. She has tried Questran in the past with no relief from her symptoms. She would like to start some medication for this, if possible. Vertigo, chronic- She reports that she is still having positional vertigo symptoms and has an appointment with Dr Paz (ENT) on the for this issue. She denies any new or worsening symptoms. ROS: Review of Systems Constitutional: Negative for [...] orthopnea, claudication, leg swelling and PND. Gastrointestinal: Positive for diarrhea. Negative for abdominal pain, blood in stool, constipation,heartburn, melena, nausea and vomiting. Genitourinary: Positive for frequency and urgency. Negative for dysuria, flank pain and hematuria. Musculoskeletal: Negative for back pain, falls, joint pain, myalgias and neck pain. Skin: Negative for itching and rash. Neurological: Positive for dizziness. Negative for tingling, tremors, sensory change, speech change, focal [...] BY MOUTH BY MOUTH EVERY WEEK ??? atorvastatin 80 MG tablet ??? celecoxib 200 MG capsule Take 200 mg by mouth 2 (two) times daily. ??? ELIQUIS 5 MG tablet Take 5 mg by mouth 2 (two) times daily. ??? estradiol 1 MG tablet Take 1.5 mg by mouth daily. ??? fludrocortisone 0.1 MG tablet Take 0.1 mg by mouth 3 (three) times daily. ??? lisinopril 40 MG tablet Take 40 [...] MEQ packet Take 20 mEq by mouth 2 (two) times daily. ??? sotalol 80 MG tablet Take 40 mg by mouth 2 (two) times daily. ??? traMADol 50 MG tablet Take 50 mg by mouth 3 (three) times daily. No current facility-administered medications on file prior to visit. Allergies: Allergies Allergen Reactions ??? Flecainide Other (see comment) and Palpitations ??? Morphine Nausea Only Medical History: Past Medical History: Diagnosis Date ??? A-fib (CMS/HCC) ??? Hyperlipidemia ??? Hypertension ??? Ventricular tachyarrhythmia (CMS/HCC) Surgical History: Past Surgical History: Procedure Laterality Date ??? CHOLECYSTECTOMY ??? HYSTERECTOMY ??? KNEE ARTHROPLASTY Bilateral Social History: Social History Socioeconomic History ??? Marital status: [...] Gatherings with Friends and Family: ??? Attends Episcopal Services: ??? Active Member of Clubs or Organizations: ??? Attends Club or Organization Meetings: ??? Marital Status: Intimate Partner Violence: ??? Fear of Current or Ex-Partner: ??? Emotionally Abused: ??? Physically Abused: ??? Sexually Abused: Family History: Family History Problem Relation Name Age of Onset ??? Aneurysm Mother ??? Heart Disease Father ??? Heart Disease Brother PE: Physical Exam Constitutional: She is oriented to person, place, and time. Vital signs are normal. She appears well-developed and well-nourished. She is cooperative. Non- toxic appearance. She does not have a sicklyappearance. She does not appear ill. No distress. HENT: Head: Normocephalic and atraumatic. Right Ear: Hearing, tympanic membrane, external ear and ear canal normal. Left Ear: Hearing, tympanic membrane, external ear and ear canal normal. Nose: Nose normal. Mouth/Throat: Uvula is midline, oropharynx is clear and moist and mucous membranes are normal. Eyes: Pupils are equal, round, and reactive to light. Conjunctivae, EOM and lids are normal. Neck: Trachea normal and phonation normal. Normal carotid pulses present. Carotid bruit is not present. No tracheal deviation present. No thyroid mass and no thyromegaly present. Cardiovascular: Normal rate, regular rhythm, normal heart sounds and intact distal pulses. Exam reveals no gallop and no friction rub. No murmur heard. Pulmonary/Chest: Effort normal and breath sounds normal. No accessory muscle usage. No respiratory distress. She has no decreased breath sounds. She has no wheezes. She has no rhonchi. She has no rales. Abdominal: Soft. Normal appearance. She exhibits no distension, no abdominal bruit, no pulsatile midline mass and no mass. Bowel sounds are increased. There is no hepatosplenomegaly. There is no abdominal tenderness. There is no rebound, no guarding and no CVA tenderness. Musculoskeletal: General: No tenderness or deformity. Normal range of motion. Cervical back: Full passive range of motion without pain, normal range of motion and neck supple. No spinous process tenderness or muscular tenderness. Lymphadenopathy: She has no cervical adenopathy. Neurological: She is alert and oriented to person, place, and time. She has normal reflexes. No cranial nerve deficit. Coordination and gait normal. Skin: Skin is warm, dry and intact. No rash noted. No erythema. Psychiatric: She has a normal mood and affect. Her speech is normal and behavior is normal. Judgment and thought content normal. Cognition and memory are normal. Nursing note and vitals reviewed. Filed Vitals: 11/27/20 1109 11/27/20 1200 BP: (!) 188/96 (!) 168/98 Pulse: 71 Resp: 16 Temp: 98 ??F (36.7 ??C) SpO2: 98% Weight: 95.3 kg (210 lb) Height: 5' 7 (1.702 m) Diagnoses/Impression: 1. Mixed stress and urge urinary incontinence URINALYSIS AUTO DIP 2. Leukocytes in urine CULTURE URINE 3. OAB (overactive bladder) darifenacin ER 15 MG TABLET SR 24 HR 24 hr tablet 4. Chronic diarrhea Ambulatory referral to Gastroenterology ( ) 5. Gastroesophageal reflux disease, unspecified whether esophagitis present Ambulatory referral to Gastroenterology ( ) 6. Irritable bowel syndrome with diarrhea rifAXIMin 550 MG Tab 7. Benign paroxysmal positional vertigo due to bilateral vestibular disorder 8. Atrial tachycardia ([facility]) Recommendations and Plan: 1. Mixed stress and urge urinary incontinence - URINALYSIS AUTO DIP - UA obtained today and sent for culture. - advised to make an appointment with her urologist. - routine f/u advised, sooner if needed 2. Leukocytes in urine - CULTURE URINE; Future - CULTURE URINE - UA obtained today and sent for culture. - advised to make an appointment with her urologist. - routine f/u advised, sooner if needed 3. OAB (overactive bladder) - darifenacin ER 15 MG TABLET SR 24 HR 24 hr tablet; Take 1 tablet (15 mg total) by mouth daily. Dispense: 90 tablet; Refill: 3 - advised to stop the oxybutynin and start darifenacin - UA obtained today and sent for culture. - advised to make an appointment with her urologist. -one month f/u advised, sooner if needed, especially if she cannot get into her urologist. 4. Chronic diarrhea - Ambulatory referral to Gastroenterology ( ) - GI referral placed - advised to start the Rifaximin and call if she has any issues. - one month follow up advised, sooner if needed. 5. Gastroesophageal reflux disease, unspecified whether esophagitis present - Ambulatory referral to Gastroenterology ( ) - advised to continue her current medication as directed and prescribed. - routine follow up advised for her GERD 6. Irritable bowel syndrome with diarrhea - rifAXIMin 550 MG Tab; Take 1 tablet (550 mg total) by mouth 3 (three) times daily for 14 days. Dispense: 42 tablet; Refill: 0 - GI referral placed - advised to start the Rifaximin and call if she has any issues. - one month follow up advised, sooner if needed. 7. Benign paroxysmal positional vertigo due to bilateral vestibular disorder - advised to maintain follow up, as scheduled with ENT. Call for any new or worsening issues. - discussed slowly changing positions to prevent vertigo. - routine follow up advised 8. Atrial tachycardia (CMS/HCC) - advised to continue her current medications as directed and prescribed. - discussed routine follow up with engineering manager as scheduled - advised routine follow up here. Orders Placed This Encounter ??? URINALYSIS AUTO DIP ??? Ambulatory referral to Gastroenterology ([facility]) ??? DISCONTD: fluticasone propionate 50 MCG/ACT nasal spray ??? DISCONTD: cetirizine 10 MG tablet ??? DISCONTD: estradiol 0.5 MG tablet ??? potassium chloride 20 MEQ packet ??? DISCONTD: magnesium lactate 84 MG (7MEQ) tablet ??? darifenacin ER 15 MG TABLET SR 24 HR 24 hr tablet ??? rifAXIMin 550 MG Tab ??? CULTURE URINE Cannot display discharge medications since this is not an admission. I spent 42 minutes today reviewing the patient's medical record, obtaining history, performing an exam, ordering medications, tests, and/or procedures, documenting in the medical record, referring and/or communicating with other health care providers, counseling and educating the patient/family/caregiver, reviewing and communicating test results and coordination of care. PCP: ONDINA ATKINS 12/02/2020 * ONDINA Pope - 11/27/2020 11:20 AM CDT Discussed with patient at office visit. documented in this encounter Plan of Treatment Upcoming Encounters Date Type Department Care Team (Late st Contact Info) Description 09/06/2024 10:40 AM CDT Office Visit [facility] Family & Internal Medicine [address] [place] [address] Bianca Aggarwal FNP [address] [place] [address] Scheduled Referrals Name Type Priority Associated Diagnoses Orde r Schedule Ambulatory referral to Gastroenterology ([facility]) Referral Routine Chronic diarrhea Gastroesophageal reflux disease, unspecified whether esophagitis present Ordered: 11/27/2020 documented as of this encounter Procedures Procedure Name Priority Date/Time Associated Diagnosis Comments URINE BACTERIA CULTURE Routine 11/27/2020 11:31 AM CDT Leukocytes in urine URINALYSIS AUTO DIP Routine 11/27/2020 Mixed stress and urge urinary incontinence documented in this encounter Results * CULTURE URINE (11/27/2020 11:31 AM CDT) CULTURE RESULT [facility][1] Comment: ??CULTURE, URINE, ROUTINE ?Micro Number: ?[id number] ??Test Status: ? Final ??Specimen Source: ?? Urine ??Specimen Quality: ??Adequate ??Result: ?No Growth URINE SPECIMEN OBTAINED BY CLEAN CATCH PROCEDURE / Unknown 11/27/2020 11:31 AM CDT 11/28/2020 3:50 AM CDT Bianca Aggarwal [facility] MICROBIOLOGY - GENERAL ORDERAB LES Final Result [facility][1] [id number] [place] [address] * URINALYSIS AUTO DIP (11/27/2020) COLOR (U) YELLOW [facility] TRANSPARENCY CLEAR -SOUT H [facility] GLUCOSE (U) NEGATIVE NEGATIVE MG/DL [facility] BILIRUBIN (U) NEGATIVE NEGATIVE -[facility] TH [facility] KETONES MG/DL (U) NEGATIVE NEGATIVE MG/DL [facility] SPECIFIC GRAVITY (U) 1.020 1.001 - 1.035 [facility] BLOOD (U) NEGATIVE NEGATIVE [facility] U PH 7.5 5.0 - 9.0 [facility] PROTEIN (U) NEGATIVE NEGATIVE mg/dL [facility] UROBILINOGEN 0.2 0.2 - 1.0 EU/dL = mg/dL [facility] NITRITES NEGATIVE NEGATIVE MG/DL [facility] LEUKOCYTES (U) TRACE NEGATIVE [facility] URINE SPECIMEN OBTAINED BY CLEAN CATCH PROCEDURE / Unknown 11/27/2020 Bianca [place] [address], documented in this encounter Visit Diagnoses Diagnosis Mixed stress and urge urinary incontinence- Primary Mixed incontinence urge and stress (male)(female) Leukocytes in urine Other nonspecific finding on examination of urine OAB (overactive bladder) Hypertonicity of bladder Chronic diarrhea Diarrhea Gastroesophageal reflux disease, unspecified whether esophagitis present Irritable bowel syndrome with diarrhea Irritable bowel syndrome Benign paroxysmal positional vertigo due to bilateral vestibular disorder Atrial tachycardia ([facility] HHS/HCC) Other specified cardiac dysrhythmias documented in this encounter Additional Health Concerns Assessment Noted Time PHQ-9 Depression Total Score: 3 05/20/19 21 3:25 PM 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
--- OUTSIDE RECORDS SUMMARY | 2024-04-04 19:43 | XMS_ITS | Encounter Summary ---
Author Organization [facility] Address [address] [place] [address]. [place] [address] [place] [address] Care Team Providers Care Manufacturing Baker Name Role Phone Claribelgoyo Bianca ONDINA Primary Care Provider [phone] Reason for Visit * Reason Onset Date Comments Blood Pressure 03/19/2021 Encounter Details Date Type Department Care Team (Late st Contact Info) Description 03/19/2021 Telephone [facility] Family & Internal Medicine [address] [place] [address] Bianca Aggarwal FNP [facility] [place][note 2][address] [place], [place] [id number] Blood Pressure Social History Tobacco Use Types Packs/Day Years [...] on file 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 Informed to increase to 10 mg and cb with BP readings. tn UCTION CONSULTANT * ONDINA Pope - 03/19/2021 9:54 AM CST Did we increase her amlodipine to 10 mg daily? UCTION CONSULTANT * Anila Morejon - 03/19/2021 9:50 AM CST Patient is calling in with her blood pressure reading. 03/03: 121/80 03/04: 146/89 146/81 143/97 03/05: 155/88 03/08: 143/85 03/09: 136/87 03/11: 171/79 03/16: 143/85 03/18: 148/85 170/80 03/19: 136/85 Patient states that she has been feeling ok. UCTION CONSULTANT documented in this encounter Plan of Treatment Upcoming Encounters Date Type Department Care Team (Late st Contact Info) Description 09/06/2024 10:40 AM CDT Office Visit [facility] Family & Internal Medicine - [address] [address] Bianca Aggarwal FNP [address] [place] [address] documented as of this encounter Visit Diagnoses Diagnosis Primary hypertension- Primary Unspecified essential hypertension documented in this encounter Additional Health Concerns Assessment Noted Time PHQ-9 Depression Total Score: 3 05/20/19 21 3:25 PM PRODUCTION CONSULTANT documented as of this encounter Care Teams Manufacturing Baker Relationship Specialty Start Date End Date Bianca Aggarwal FNP [address] [place] [address] PCP - General Nurse Practitioner Family 05/20/20 documented as of this encounter
--- OUTSIDE RECORDS SUMMARY | 2024-04-04 19:43 | XMS_ITS | Encounter Summary ---
Author Organization [facility] Address [address] [place] [address]. 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 Gender Identity Not on file Sexual Orientation Not on file documented as of this encounter Plan of Treatment Upcoming Encounters Date Type Department Care Team (Late st Contact Info) Description 09/06/2024 10:40 AM CDT Office Visit [facility] Family & Internal Medicine - [place] [address] [place] [address] Bianca Aggarwal FNP [address] [place] [address] documented as of this encounter Visit Diagnoses Not on filedocumented in this encounter Additional Health Concerns Assessment Noted Time PHQ-9 Depression Total Score: 0 01/28/20 22 1:07 PM CDT documented as of this encounter Care Teams Electrician Elevator Maintenance Relationship Specialty Start Date End Date Bianca Aggarwal FNP [address] [place] [address] PCP - General Nurse Practitioner Family 05/20/20 documented as of this encounter
--- OUTSIDE RECORDS SUMMARY | 2024-04-04 19:43 | XMS_ITS | Encounter Summary ---
Author Organization [facility] Address [address] [place] [address]. [place] [address] [place] [address] Care Team Providers Care Drilling Superintendent Name Role Phone ClaribelChloe nance ONDINA Primary Care Provider [phone] Reason for Visit * Reason Onset Date Comments Sinus Problem 08/30/2022 Encounter Details Date Type Department Care Team (Late st Contact Info) Description 08/30/2022 Telephone [facility] Family & Internal Medicine [facility] [address] [place] [address] Chloe House FNP 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 Patient informed. * ONDINA Pope - 08/30/2022 2:02 PM CDT Doxycycline 100 mg bid x 10d * Any Combs MA - 08/30/2022 12:14 PM CDT Drug - drug interaction with Sotalol Additive QT interval prolongation may occur during coadministration of azithromycin, a moderate-risk QT-prolonging agent and QT-prolonging Agents (Highest Risk), a high-risk QT-prolonging agent. Okay to send? * ONDINA Pope - 08/30/2022 11:18 AM CDT Okay for lara * Anila Hagan - 08/30/2022 8:41 AM CDT The patient has the following symptom(s): Runny nose, cough up green mucus, horse voice. Symptom(s) Started: 3 weeks ago OTC Medications tried: amara Have you been seen with-in the past 30 days for these same symptoms? If so, where? no * Patient took a coivd test 3 weeks ago when it started and then also a week ago and both are negative. [facility] in [place] Call back #: [phone] Allergies: Allergies Allergen Reactions ??? Flecainide Other (see comment) and Palpitations ??? Morphine Nausea Only [facility] - [place], [place] - [address] [facility] [address] [facility] [address] - [address] [facility] [address] Last visit with [facility]LOE HOUSE in [facility] was on: 10/30/2021 in [facility] No future appointments. Current Outpatient Medications: ??? alendronate (FOSAMAX) 35 MG tablet, TAKE 1 TABLET BY MOUTH BY MOUTH EVERY WEEK Strength: 35 mg,Disp: 4 tablet, Rfl: 2 ??? ALPRAZolam 0.25 MG tablet, Take one tablet one hour prior to your MRI and, if not effective, you can may take another tablet. You must have a hook up driver to take this medciation, Disp: 4 tablet, Rfl: 0 ??? amLODIPine (NORVASC) 10 MG tablet, TAKE ONE TABLET BY MOUTH DAILY STOP TAKING 5MG TABLETS Strength: 10 mg, Disp: 90 tablet, Rfl: 0 ??? atorvastatin (LIPITOR) 80 MG tablet, TAKE 1 TABLET BY MOUTH NIGHTLY AT BEDTIME, Disp: 90 tablet, Rfl: 0 ??? benzonatate (TESSALON PERLES) 100 MG capsule, Take 1-2 capsules (100-200 mg total) by mouth 3 (three) times daily as needed for Cough., Disp: 40 capsule, Rfl: 0 ??? celecoxib 200 MG capsule, Take 200 mg by mouth 2 (two) times daily., Disp: , Rfl: ??? cyclobenzaprine (FLEXERIL) 5 MG tablet, Take 1 tablet (5 mg total) by mouth 3 (three) times daily as needed for Muscle Spasms., Disp: 30 tablet, Rfl: 4 ??? ELIQUIS 5 MG tablet, Take 1 tablet (5 mg total) by mouth 2 (two) times daily., Disp: 60 tablet,Rfl: 2 ??? estradiol (ESTRACE) 0.5 MG tablet, daily., Disp: , Rfl: ??? estradiol (ESTRACE) 1 MG tablet, Take 1.5 tablets (1.5 mg total) by mouth daily. Take 1.5 mg bymouth daily., Disp: 28 tablet, Rfl: 2 ??? fludrocortisone (FLORINEF) 0.1 MG tablet, Take 1 tablet (0.1 mg total) by mouth 3 (three) timesdaily., Disp: 30 tablet, Rfl: 0 ??? furosemide 20 MG tablet, Take 20 mg by mouth in the morning., Disp: , Rfl: ??? lisinopril 40 MG tablet, Take 40 mg by mouth daily., Disp: , Rfl: ??? Magnesium 400 MG Tab, Take 400 mg by mouth daily., Disp: 90 tablet, Rfl: 3 ??? magnesium oxide 400 (241.3 Mg) MG tablet, Take 400 mg by mouth daily., Disp: , Rfl: ??? meclizine 25 MG tablet, Take 25 mg by mouth 3 (three) times daily as needed., Disp: , Rfl: ??? methylPREDNISolone, MATTHEW, (MEDROL DOSEPAK) 4 MG tablet, 6 TABLETS ON DAY ONE, 5 TABLETS DAY TWO,4 TABLETS DAY THREE, 3 TABLETS DAY FOUR, 2 TABLETS DAY FIVE, AND 1 TABLET DAY SIX, Disp: 1 each, Rfl: 0 ??? Multiple Vitamins-Minerals (PRESERVISION AREDS) capsule, Take 1 capsule by mouth daily., Disp: , Rfl: ??? omeprazole (PRILOSEC) 40 MG capsule, Take 1 capsule (40 mg total) by mouth every morning., Disp: 30 capsule, Rfl: 2 ??? potassium chloride 20 MEQ packet, Take 20 mEq by mouth daily., Disp: , Rfl: ??? potassium chloride CR 20 MEQ tablet, , Disp: , Rfl: ??? sotalol 80 MG tablet, Take 40 mg by mouth 2 (two) times daily., Disp: , Rfl: ??? spironolactone 25 MG tablet, Take 25 mg by mouth in the morning., Disp: , Rfl: ??? tiZANidine HCl 2 MG Cap, Take one capsule three times daily as needed for pain/muscle spasm., Disp: 30 capsule, Rfl: 0 ??? traMADol (ULTRAM) 50 MG tablet, Take 1 tablet (50 mg total) by mouth 3 (three) times daily. Indications: Chronic Pain Take 50 mg by mouth 3 (three) times daily., Disp: 90 tablet, Rfl: 1 ??? vibegron (GEMTESA) 75 MG tablet, Take 1 tablet (75 mg total) by mouth daily., Disp: 90 tablet, Rfl: 3 documented in this encounter Plan of Treatment Upcoming Encounters Date Type Department Care Team (Late st Contact Info) Description 09/06/2024 10:40 AM CDT Office Visit [facility] Family & Internal Medicine - [place] [id number] [place] [address] Chloe House FNP [address] [place] [address] documented as of this encounter Visit Diagnoses Diagnosis Acute cough- Primary documented in this encounter Additional Health Concerns Assessment Noted Time PHQ-9 Depression Total Score: 0 01/28/20 22 1:07 PM CDT documented as of this encounter Care Teams Drilling Superintendent Relationship Specialty Start Date End Date Chloe House FNP [address] [place] [id number] PCP - General Nurse Practitioner Family 05/20/20 documented as of this encounter
--- OUTSIDE RECORDS SUMMARY | 2024-04-04 19:43 | XMS_ITS | Encounter Summary ---
Author Organization [facility] Address [facility] [place] [address] [place] [address] Care Team Providers Care Production Support Consultant Name Role Phone Bianca Aggarwal ONDINA Primary Care Provider Reason for Visit * Reason Comments ER F/U F/u s/p fall and rig ht leg,foot and ankle injury/pain Encounter Details Date Type Department Care Team (Late st Contact Info) Description 09/11/2021 10:20 AM CDT Office Visit [facility] Family & Internal Medicine [place] [id number] [place] [address] Bianca Aggarwal FNP 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 No / Unsure 09/11/2021 10:18 AM CDT documented as of this encounter Last Filed Vital Signs Vital Sign Reading Time Taken Comments Blood Pressure 127/87 09/11/2021 10:38 AM CDT Pulse 74 09/11/2021 10:38 AM CDT Temperature 36.6 ??C (97.8 ??F) 09/11/2021 10:38 AM C DT Respiratory Rate 18 09/11/2021 10:38 AM CDT Oxygen Saturation 98% 09/11/2021 10:38 AM CDT Inhaled Oxygen Concentration - - Weight 98 kg (216 lb) 09/11/2021 10:38 AM CDT Height 170.2 cm (5' 7 ) 09/11/2021 10:38 AM CDT Body Mass Index 33.83 09/11/2021 10:38 AM CDT documented in this encounter Patient Instructions * Patient Instructions* ONDINA Pope - 09/11/2021 11:14 AM CDT Someone will call you about scheduling your MRI Watch for any signs or symptoms of infection in your thumb since we used cryotherapy for the wart. Call for any new or worsening symptoms. Follow up in one month or sooner if needed. documented in this encounter Progress Notes * ONDINA Pope - 09/11/2021 10:20 AM CDTAssociated Order(s): Lesion Destruction Summary: knee injury, wart Office Progress Note Reason for Visit: ER F/U (F/u s/p fall and right leg,foot and ankle injury/pain) History of Present Illness: Minnie presents to the office for an Urgent care follow up Last Tuesday, she was walking and her puppy got in between her legs and she fell on her knees. She c/o right knee pain, swelling and bruising. She did have some imaging done and this did not show any acute issues or fractures. She was given an mitzi wrap to use but has not been using this because this keeps sliding down. We discussed getting an MRI of this and she is agreeable but will need something to help with her claustrophobia. Also has a wart on right thumb that she would like to have removed. ROS: Review of Systems Constitutional: Negative for [...] frequency, hematuria and urgency. Musculoskeletal: Positive for falls and joint pain. Negative for back pain, myalgias and neck pain. Skin: Negative for itching and rash. Wart on right thumb Neurological: Negative for dizziness, tingling, tremors, sensory [...] by mouth 2 (two) times daily. ??? potassium chloride CR 20 MEQ [...] Social History Socioeconomic History ??? Marital status: Tobacco Use ??? Smoking status: Never Smoker ??? Smokeless tobacco: Never Used Vaping Use ??? Vaping Use: Never used Substance and Sexual Activity ??? Alcohol use: Never ??? Drug use: Never Family History: Family History Problem Relation Name Age of Onset ??? Aneurysm Mother ??? Heart Disease Father ??? Heart Disease Brother PE: Physical Exam Vitals and nursing note reviewed. Constitutional: General: She is not in acute distress. Appearance: Normal appearance. She is well-developed and well-groomed. She is not ill-appearing, toxic-appearing or diaphoretic. HENT: Head: Normocephalic and atraumatic. Jaw: There is normal jaw occlusion. Right Ear: Hearing and external ear normal. Left Ear: Hearing and external ear normal. Nose: Nose normal. Eyes: General: Lids are normal. Vision grossly [...] No spinous process tenderness or muscular tenderness. Right knee: Swelling and ecchymosis present. No deformity, erythema, lacerations, bony tenderness or crepitus. Normal range of motion. Tenderness present over the lateral joint line. No LCL laxity, MCL laxity, ACL laxity or PCL laxity. Normal alignment, normal meniscus and normal patellar mobility. Normal pulse. Left knee: Ecchymosis present. Lymphadenopathy: Cervical: No cervical adenopathy. Skin: General: Skin is warm and dry. Capillary Refill: Capillary refill takes less than 2 seconds. Findings: Lesion (wart on right thumb pad, non reddened, non draining. ) present. No rash. Neurological: Mental Status: She is alert and oriented to person, place, and time. Cranial Nerves: No cranial nerve deficit. Sensory: Sensation is intact. No sensory deficit. Motor: Motor function is intact. Coordination: Coordination is intact. Coordination normal. Gait: Gait is intact. Gait (using a cane for assistance. hesitant but steady gait) normal. Psychiatric: Attention and Perception: Attention and perception normal. Mood and Affect: Mood and affect normal. Speech: Speech normal. Behavior: Behavior normal. Behavior is cooperative. Thought Content: Thought content normal. Cognition and Memory: Cognition and memory normal. Judgment: Judgment normal. Lesion Destruction Date/Time: 09/11/2021 11:14 AM Performed by: ONDINA Pope Authorized by: ONDINA Pope Number of Lesions: 1 Lesion 1: Body area: upper extremity Upper extremity location: R thumb Malignancy: benign lesion Destruction method: cryotherapy Comments: Liquid nitrogen was applied for 3-5 seconds to the skin lesions and the expected blistering or scabbing reaction explained. Do not pick at the areas. Patient reminded to expect hypopigmented scars from the procedure. Return if lesions fail to fully resolve. She tolerated the procedure well. Filed Vitals: 09/11/21 1038 BP: 127/87 Pulse: 74 Resp: 18 Temp: 97.8 ??F (36.6 ??C) SpO2: 98% Weight: 98 kg (216 lb) Height: 5' 7 (1.702 m) Diagnoses/Impression: 1. Acute traumatic internal derangement of right knee, subsequent encounter CANCELED: MRI KNEE RT WO CON 2. Pain and swelling of knee, right CANCELED: MRI KNEE RT WO CON 3. History of meniscal tear CANCELED: MRI KNEE RT WO CON 4. H/O right knee surgery CANCELED: MRI KNEE RT WO CON 5. Claustrophobia ALPRAZolam 0.25 MG tablet 6. Wart on thumb Lesion Destruction Recommendations and Plan: 1. Acute traumatic internal derangement of right knee, subsequent encounter Advised to continue medications as prescribed and to rest the area as much as she can. We also discussed getting a knee sleeve to help for comfort and swelling. MRI to be obtained as ordered Routine follow-up advised, sooner if needed 2. Pain and swelling of knee, right Advised to continue medications as prescribed and to rest the area as much as she can. We also discussed getting a knee sleeve to help for comfort and swelling. MRI to be obtained as ordered Routine follow-up advised, sooner if needed 3. History of meniscal tear Advised to continue medications as prescribed and to rest the area as much as she can. We also discussed getting a knee sleeve to help for comfort and swelling. MRI to be obtained as ordered Routine follow-up advised, sooner if needed 4. H/O right knee surgery Advised to continue medications as prescribed and to rest the area as much as she can. We also discussed getting a knee sleeve to help for comfort and swelling. MRI to be obtained as ordered Routine follow-up advised, sooner if needed 5. Claustrophobia - ALPRAZolam 0.25 MG tablet; Take one tablet one hour prior to your MRI and, if not effective, you can may take another tablet. You must have a six horse hitch driver to take this medciation Dispense: 4 tablet; Refill: 0 Advised to take medications as prescribed and as directed 6. Wart on thumb - Lesion Destruction Procedure performed as documented without any issues She was advised to watch for any signs and symptoms of infection Orders Placed This Encounter ??? Lesion Destruction ??? spironolactone 25 MG tablet ??? potassium chloride CR 20 MEQ tablet ??? furosemide 20 MG tablet ??? DISCONTD: estradiol 0.5 MG tablet ??? ALPRAZolam 0.25 MG tablet Cannot display discharge medications since this is not an admission. I spent 32 minutes today reviewing the patient's medical record, obtaining history, performing an exam, ordering medications, tests, and/or procedures, documenting in the medical record, counseling and educating the patient/family/caregiver, reviewing and communicating test results and coordinationof care. I spent an additional 7 minutes performing the procedure. PCP: ONDINA ATKINS 09/17/2021 documented in this encounter Plan of Treatment Upcoming Encounters Date Type Department Care Team (Late st Contact Info) Description 09/06/2024 10:40 AM CDT Office Visit [facility] Family & Internal Medicine - [address] [address] Bianca Aggarwal FNP [address] [place] [address] documented as of this encounter Procedures Procedure Name Priority Date/Time Associated Diagnosis Comments DESTRUCTION BY NEUROLYTIC AGENT Routine 09/11/2021 11:14 AM CDT Wart on thumb documented in this encounter Results * Lesion Destruction (09/11/2021 11:14 AM CDT) Narrative Bianca Aggarwal FNP - 09/11/2021 11:14 AM CDT ONDINA Pope ? 09/17/2021 ??2:17 PM Lesion Destruction Date/Time: 09/11/2021 11:14 AM Performed by: ONDINA Pope Authorized by: ONDINA Pope Number of Lesions: 1 Lesion 1: ??Body area: upper extremity ??Upper extremity location: R thumb ??Malignancy: benign lesion ?Destruction method: cryotherapy ?? Comments: Liquid nitrogen was applied for 3-5 seconds to the skin lesions and the expected blistering or scabbing reaction explained. Do not pick at the areas. Patient reminded to expect hypopigmented scars from the procedure. Return if lesions fail to fully resolve. She tolerated the procedure well. us Bianca [place] NEUROLOGY ORDERABLES Final Res ult documented in this encounter Visit Diagnoses Diagnosis Acute traumatic internal derangement of right knee, subsequent encounter- Primary Pain and swelling of knee, right History of meniscal tear Personal history of other musculoskeletal disorders H/O right knee surgery Personal history of surgery to other organs Claustrophobia Other isolated or specific phobias Wart on thumb documented in this encounter Additional Health Concerns Assessment Noted Time PHQ-9 Depression Total Score: 4 09/12/19 22 11:24 AM CDT documented as of this encounter Care Teams Production Support Consultant Relationship Specialty Start Date End Date Bianca Aggarwal FNP [address] [place] [address] PCP - General Nurse Practitioner Family 05/20/20 documented as of this encounter
--- OUTSIDE RECORDS SUMMARY | 2024-04-04 19:43 | XMS_ITS | Encounter Summary ---
Author Organization [facility] Address [address] [place] [address]. 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 No / Unsure 03/16/2022 10:38 AM E[facility]ER documented as of this encounter Medications at Time of Discharge ALPRAZolam 0.25 MG tabletIndications: Claustrophobia Take one tablet one hour prior to your MRI and, if not effective, you can may take another tablet. You must have a sales route driver to take this medciation 4 tablet 09/11/2021 celecoxib 200 MG capsule Take 1 capsule (200 mg total) by mouth 2 (two) times daily. 02/01/2020 meclizine 25 MG tablet Take 1 tablet (25 mg total) by mouth 3 (three) times daily as needed. 03/25/2020 Multiple Vitamins-Minerals (PRESERVISION AREDS) capsule Take 1 capsule by mouth daily. potassium chloride 20 MEQ packet Take 1 packet by mouth daily. spironolactone 25 MG tablet Take 1 tablet (25 mg total) by mouth daily. 08/07/2021 tiZANidine HCl 2 MG CapIndications:Acu te bilateral low back pain without sciatica Take one capsule three times daily as needed for pain/muscle spasm. 30 capsule 05/07/2021 alendronate 35 MG tablet TAKE 1 TABLET BY MOUTH BY MOUTH EVERY WEEK 03/25/2020 3 amLODIPine (NORVASC) 10 MG tabletIndications: Primary hypertension TAKE ONE TABLET BY MOUTH DAILY STOP TAKING 5MG TABLETS 90 tablet 12/22/2021 2 amoxicillin-clavul anate (AUGMENTIN) 875-125 MG tabletIndications: Acute non-recurrent maxillary sinusitis Take 1 tablet (875 mg total) by mouth 2 (two) times daily for 10 days. 20 tablet 03/16/2022 2 atorvastatin 80 MG tablet nightly at bedtime. 05/12/2020 3 benzonatate (TESSALON PERLES) 100 MG capsuleIndications :Acute non-recurrent maxillary sinusitis Take 1-2 capsules (100-200 mg total) by mouth 3 (three) times daily as needed for Cough. 40 capsule 03/16/2022 3 cyclobenzaprine (FLEXERIL) 5 MG tabletIndications: Muscle spasm Take 1 tablet (5 mg total) by mouth 3 (three) times daily as needed for Muscle Spasms. 30 tablet 12/30/2021 2 ELIQUIS 5 MG tablet Take 5 mg by mouth 2 (two) times daily. 07/20/2019 3 estradiol (ESTRACE) 0.5 MG tablet daily. 10/29/2021 4 estradiol 1 MG tablet Take 1.5 mg by mouth daily. 04/09/2020 3 fludrocortisone 0.1 MG tablet Take 0.1 mg by mouth 3 (three) times daily. 03/27/2020 3 furosemide 20 MG tablet Take 1 tablet (20 mg total) by mouth daily. 06/19/2021 4 lisinopril 40 MG tablet Take 10 mg by mouth daily. 02/20/2020 4 magnesium oxide 400 (241.3 Mg) MG tablet Take 1 tablet (400 mg total) by mouth daily. 4 methylPREDNISolone , MATTHEW, (MEDROL DOSEPAK) 4 MG tabletIndications: Acute non-recurrent maxillary sinusitis 6 TABLETS ON DAY ONE, 5 TABLETS DAY TWO, 4 TABLETS DAY THREE, 3 TABLETS DAY FOUR, 2 TABLETS DAY FIVE, AND 1 TABLET DAY SIX 1 each 03/16/2022 4 omeprazole 40 MG capsule TAKE 1 CAPSULE BY MOUTH EVERY DAY IN THE MORNING 04/09/2020 3 potassium chloride CR 20 MEQ tablet 09/10/2021 02/15/20 2 3 sotalol 80 MG tablet Take 0.5 tablets (40 mg total) by mouth 2 (two) times daily. 04/09/2020 4 traMADol 50 MG tablet Take 50 mg by mouth 3 (three) times daily. 04/14/2020 3 documented as of this encounter Plan of Treatment Upcoming Encounters Date Type Department Care Team (Late st Contact Info) Description 09/06/2024 10:40 AM CDT Office Visit [facility] Family & Internal Medicine - [place] [address] [place] [address] Bianca Aggarwal FNP [facility] [place] [address] documented as of this encounter Visit Diagnoses Not on filedocumented in this encounter Additional Health Concerns Infection Onset Date Last Indicated Resolved Time COVID-19 Rule Out 03/16/2022 03/16/2022 03/17/2022 5:53 AM E[facility]ER Assessment Noted Time PHQ-9 Depression Total Score: 0 01/28/20 22 1:07 PM CDT documented as of this encounter Care Teams Records Associate Relationship Specialty Start Date End Date Bianca Aggarwal FNP [address] [place] [id number] PCP - General Nurse Practitioner Family 05/20/20 documented as of this encounter
--- OUTSIDE RECORDS SUMMARY | 2024-04-04 19:43 | XMS_ITS | Encounter Summary ---
Author Organization [facility] Address [address] [place] [address]. 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 No / Unsure 05/20/2020 1:51 PM GLOST TILE SHADER documented as of this encounter Plan of Treatment Upcoming Encounters Date Type Department Care Team (Late st Contact Info) Description 09/06/2024 10:40 AM CDT Office Visit [facility] Family & Internal Medicine - [place] [id number] [place] [address] Binaca Aggarwal FNP [facility] [place], [place] [id number] documented as of this encounter Visit Diagnoses Not on filedocumented in this encounter Additional Health Concerns Assessment Noted Time PHQ-9 Depression Total Score: 3 05/20/19 21 3:25 PM GLOST TILE SHADER documented as of this encounter Care Teams Quality Assurance Test Program Manager Relationship Specialty Start Date End Date Bianca Aggarwal FNP [address] [place] [id number] PCP - General Nurse Practitioner Family 05/20/20 documented as of this encounter
--- OUTSIDE RECORDS SUMMARY | 2024-04-04 19:43 | XMS_ITS | Encounter Summary ---
Author Organization [facility] Address [address] [place] [address]. [place] [address] [place] [address] Care Team Providers Care Shuttle Truck Driver Name Role Phone Jasen Bianca [place] Primary Care Provider [phone] Reason for Visit * Reason Onset Date Comments Leg Pain 07/03/2021 Encounter Details Date Type Department Care Team (Late st Contact Info) Description 07/03/2021 Telephone [facility] Medical [facility] Family & Internal Medicine [facility] [address] [place] [address] Bianca Aggarwal FNP [facility]1 [place], [place] [id number] Leg Pain Social History Tobacco Use Types Packs/Day [...] file Legal Sex Female 1:23 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 States that if we are wanting to to continue on them she is needing a refill. Cyclobenzaprine 5 Mg. * Ashley Wu MA - 07/03/2021 3:02 PM CDT lmtc 07/03/21 * ONDINA Pope - 07/03/2021 2:51 PM CDT Is she taking the muscle relaxer that she has? * Any Combs MA - 07/03/2021 1:31 PM CDT Patient is only have pain right in front of knee cap in the muscle above the knee cap. Patient notes she takes Eliquis every day and does not think this a blood clot. * ONDINA Pope - 07/03/2021 11:51 AM CDT Needs imaging. Does it hurt in the back? She is at a higher risk for blood clots. Do we need a doppler * Christy Armstrong RN - 07/03/2021 8:29 AM CDT Patient called in stating that her right knee is now very swollen and in a lot of pain. Patient hadsurgery on her left leg and has been using a scooter with her right leg/knee. Patient stated she has been using several OTC antiinflammatory medications, muscle relaxer, and ice. However, nothing seems to be helping. Patient is wondering if PCP has any recommendation. This nurse advised patient to rest and elevate the legg as much as possible. Patient stated she is working very long hours and it is hard for her to rest the leg. Allergies- Flecainide, Morphine Pharmacy- [facility] Please advise LL-07/03/21 documented in this encounter Plan of Treatment Upcoming Encounters Date Type Department Care Team (Late st Contact Info) Description 09/06/2024 10:40 AM CDT Office Visit [facility] Medical Group Family & Internal Medicine - [address] [address] Bianca Aggarwal FNP [facility] [place] [address] documented as of this encounter Visit Diagnoses Diagnosis Acute bilateral low back pain without sciatica- Primary documented in this encounter Additional Health Concerns Assessment Noted Time PHQ-9 Depression Total Score: 3 05/20/19 21 3:25 PM ASSOCIATE DIRECTOR CAREER SERVICES documented as of this encounter Care Teams Shuttle Truck Driver Relationship Specialty Start Date End Date Bianca Aggarwal FNP [address] [place] [address] PCP - General Nurse Practitioner Family 05/20/20 documented as of this encounter
--- OUTSIDE RECORDS SUMMARY | 2024-04-04 19:43 | XMS_ITS | Encounter Summary ---
Author Organization [facility] Address [address] [place] [address]. [place] [address] [place] [address] Care Team Providers Care Glass Beveler Name Role Phone Jasen Bianca [place] Primary Care Provider [phone] Reason for Visit * Reason Comments Image (SCAN) Encounter Details Date Type Department Care Team (Latest Contact Info) Description 02/16/2021 Scan HEALTH INFO SRVCS Scanned, Documents Image [...] on file Legal Sex Female 1:23 PM REHAB SPECIALIST Gender Identity Not on file Sexual Orientation Not on file documented as of this encounter Plan of Treatment Upcoming Encounters Date Type Department Care Team (Late st Contact Info) Description 09/06/2024 10:40 AM CDT Office Visit [facility] Medical Group Family & Internal Medicine - [place] [address] [place] [phone] Bianca Aggarwal FNP [address] [place] [address] documented as of this encounter Procedures Procedure Name Priority Date/Time Associated Diagnosis Comments IMAGE GENERIC 02/16/2021 IMAGE GENERIC 02/16/2021 documented in this encounter Results * IMAGE GENERIC (02/16/2021) Anatomical Region Laterality Modality Other 02/16/2021 Narrative 02/16/2021 Ordered by an unspecified provider. us Documents Scanned SCANNING Final Result * IMAGE GENERIC (02/16/2021) Anatomical Region Laterality Modality Other 02/16/2021 Narrative 02/16/2021 Ordered by an unspecified provider. us Documents Scanned SCANNING Final Result documented in this encounter Visit Diagnoses Not on filedocumented in this encounter Additional Health Concerns Assessment Noted Time PHQ-9 Depression Total Score: 3 05/20/19 21 3:25 PM REHAB SPECIALIST documented as of this encounter Care Teams Glass Beveler Relationship Specialty Start Date End Date Bianca Aggarwal FNP [address] [place] [address] PCP - General Nurse Practitioner Family 05/20/20 documented as of this encounter
--- OUTSIDE RECORDS SUMMARY | 2024-04-04 19:43 | XMS_ITS | Encounter Summary ---
Author Organization [facility] Address [facility] [place] [address] [place] [address] Care Team Providers Care Meeting Specialist Name Role Phone Bianca Aggarwal ONDINA Primary Care Provider [phone] Reason for Referral * Consultation (Routine) - Closed Specialty Diagnoses / Procedures Referred By Janice vergara Referred To Contact DERMATOLOGY Diagnoses Common wart Procedures OFFICE/OUTPT VISIT,NEW,LEVL III OFFICE/OUTPT VISIT,NEW,LEVL IV OFFICE/OUTPT VISIT,NEW,LEVL V OFFICE/OUTPT VISIT,EST,LEVL III OFFICE/OUTPT VISIT,EST,LEVL IV OFFICE/OUTPT VISIT,EST,LEVL V Cande Marcum APNP [address] [place] [address] Phone: tel: fax: [facility] [address] [place] [address] Phone: tel: fax: Referral ID Status Reason Start Date Expiration Date V isits Requested Visits Authorized [id number] Closed Specialty Services 01/27/2022 02/26/[address] 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 No / Unsure 01/27/2022 12:17 PM CDT documented as of this encounter Last Filed Vital Signs Vital Sign Reading Time Taken Comments Blood Pressure 111/74 01/27/2022 12:27 PM CDT Pulse 67 01/27/2022 12:27 PM CDT Temperature 36.3 ??C (97.3 ??F) 01/27/2022 12:27 PM C DT Respiratory Rate 16 01/27/2022 12:27 PM CDT Oxygen Saturation 98% 01/27/2022 12:27 PM CDT Inhaled Oxygen Concentration - - Weight 97.5 kg (215 lb) 01/27/2022 12:27 PM CDT Height 170.2 cm (5' 7 ) 01/27/2022 12:27 PM CDT Body Mass Index 33.67 01/27/2022 12:27 PM CDT documented in this encounter Progress Notes * FARZANA Brown - 01/27/2022 12:20 PM CDTAssociated Order(s): Lesion Destruction Post-Procedure Diagnose(s): Common wart Images from the original note were not included. [facility] FAMILY AND INTERNAL MEDICINE OFFICE VISIT Reason for Visit: Wart History of Present Illness: 66 yo female here for a wart of her left thumb. She has had this treated before several times. States wart will improve, then worsen again. She has not seen dermatology. She has treated at home with compound W as well. She is frustrated that she can not resolve this. ROS: Review of Systems Respiratory: Negative for cough and shortness of breath. Cardiovascular: Negative for chest pain and palpitations. Gastrointestinal: Negative for abdominal pain, diarrhea, nausea and vomiting. Skin: Negative for itching and rash. Neurological: Negative for dizziness and headaches. Medications: Current Outpatient Medications: ??? alendronate 35 MG tablet, TAKE 1 TABLET BY MOUTH BY MOUTH EVERY WEEK, Disp: , Rfl: ??? amLODIPine (NORVASC) 10 MG tablet, TAKE ONE TABLET BY MOUTH DAILY STOP TAKING 5MG TABLETS, Disp: 90 tablet, Rfl: 0 ??? atorvastatin 80 MG tablet, nightly at bedtime., Disp: , Rfl: ??? celecoxib 200 MG capsule, Take 200 mg by mouth 2 (two) times daily., Disp: , Rfl: ??? ELIQUIS 5 MG tablet, Take 5 mg by mouth 2 (two) times daily., Disp: , Rfl: ??? estradiol (ESTRACE) 0.5 MG tablet, daily., Disp: , Rfl: ??? estradiol 1 MG tablet, Take 1.5 mg by mouth daily. , Disp: , Rfl: ??? fludrocortisone 0.1 MG tablet, Take 0.1 mg by mouth 3 (three) times daily., Disp: , Rfl: ??? furosemide 20 MG tablet, Take 20 mg by mouth in the morning., Disp: , Rfl: ??? lisinopril 40 MG tablet, Take 40 mg by mouth daily., Disp: , Rfl: ??? magnesium oxide 400 (241.3 Mg) MG tablet, Take 400 mg by mouth daily., Disp: , Rfl: ??? meclizine 25 MG tablet, Take 25 mg by mouth 3 (three) times daily as needed., Disp: , Rfl: ??? Multiple Vitamins-Minerals (PRESERVISION AREDS) capsule, Take 1 capsule by mouth daily., Disp: , Rfl: ??? omeprazole 40 MG capsule, TAKE 1 CAPSULE BY MOUTH EVERY DAY IN THE MORNING, Disp: , Rfl: ??? potassium chloride 20 MEQ packet, Take 20 mEq by mouth daily., Disp: , Rfl: ??? sotalol 80 MG tablet, Take 40 mg by mouth 2 (two) times daily., Disp: , Rfl: ??? spironolactone 25 MG tablet, Take 25 mg by mouth in the morning., Disp: , Rfl: ??? tiZANidine HCl 2 MG Cap, Take one capsule three times daily as needed for pain/muscle spasm., Disp: 30 capsule, Rfl: 0 ??? traMADol 50 MG tablet, Take 50 mg by mouth 3 (three) times daily., Disp: , Rfl: ??? ALPRAZolam 0.25 MG tablet, Take one tablet one hour prior to your MRI and, if not effective, you can may take another tablet. You must have a crude oil driver to take this medciation, Disp: 4 tablet, Rfl: 0 ??? potassium chloride CR 20 MEQ tablet, , Disp: , Rfl: Allergies: Allergies Allergen Reactions ??? Flecainide Other [...] note reviewed. HENT: Head: Normocephalic and atraumatic. Eyes: General: No scleral icterus. Conjunctiva/sclera: Conjunctivae normal. Neck: Trachea: No tracheal deviation. Cardiovascular: Rate and Rhythm: Normal rate and regular rhythm. Heart sounds: Normal heart sounds. Pulmonary: Effort: Pulmonary effort is normal. No respiratory distress. Breath sounds: Normal breath sounds. No stridor. No wheezing. Musculoskeletal: General: No deformity. Normal range of motion. Cervical back: Normal range of motion and neck supple. Skin: General: Skin is warm and dry. Findings: No erythema. Comments: Porfirio noted to pad of right thumb Neurological: Mental Status: She is alert and oriented to person, place, and time. Gait: Gait is intact. Psychiatric: Mood and Affect: Mood and affect normal. Lesion Destruction Date/Time: 01/27/2022 1:31 PM Performed by: FARZANA Brown Authorized by: FARZANA Brown Number of Lesions: 1 Lesion 1: Body area: upper extremity Upper extremity location: R thumb Malignancy: malignancy unknown Destruction method: cryotherapy Comments: Cryo x 3 freeze thaw cycles. Pt tolerated well. Filed Vitals: 01/27/22 1227 BP: 111/74 Pulse: 67 Resp: 16 Temp: 97.3 ??F (36.3 ??C) SpO2: 98% Weight: 97.5 kg (215 lb) Height: 5' 7 (1.702 m) Labs: Labs Reviewed Diagnoses/Impression: 1. Need for immunization against influenza [64411] INFLUENZA VIRUS VACCINE, SPLIT VIRUS 0.7 mL (SINGLE DOSE SYRINGE FLUZONE HIGH DOSE) 2. Common wart Chronic Ambulatory referral to Dermatology Recommendations and Plan: 1. Need for immunization against influenza - [76434] INFLUENZA VIRUS VACCINE, SPLIT VIRUS 0.7 mL (SINGLE DOSE SYRINGE FLUZONE HIGH DOSE) 2. Common wart - Ambulatory referral to Dermatology Cryo today. Pt tolerated well.Pt instructed to follow up in one month for repeat. Derm referral initiated today. Orders Placed This Encounter ??? Ambulatory referral to Dermatology ??? [00526] INFLUENZA VIRUS VACCINE, SPLIT VIRUS 0.7 mL (SINGLE DOSE SYRINGE FLUZONE HIGH DOSE) ??? Lesion Destruction Cannot display discharge medications since this is not an admission. PCP: FARZANA Brown 01/27/2022 documented in this encounter Plan of Treatment Upcoming Encounters Date Type Department Care Team (Late st Contact Info) Description 09/06/2024 10:40 AM CDT Office Visit [facility] Medical Group Family & Internal Medicine [address] [place] [address] Bianca Aggarwal FNP [address] [place] [address] Scheduled Referrals Name Type Priority Associated Diagnoses Orde r Schedule Ambulatory referral to Dermatology Referral Routine Common wart Ordered: 01/27/2022 documented as of this encounter Procedures Procedure Name Priority Date/Time Associated Diagnosis Comments DESTRUCTION BY NEUROLYTIC AGENT Routine 01/27/2022 1:31 PM CDT Common wart documented in this encounter Results * Lesion Destruction (01/27/2022 1:31 PM CDT) Narrative Cande Marcum APNP - 01/27/2022 1:31 PM CDT FARZANA Brown ? 01/27/2022 ??1:37 PM Lesion Destruction Date/Time: 01/27/2022 1:31 PM Performed by: FARZANA Brown Authorized by: FARZANA Brown Number of Lesions: 1 Lesion 1: ??Body area: upper extremity ??Upper extremity location: R thumb ??Malignancy: malignancy unknown ?Destruction method: cryotherapy ?? Comments: Cryo x 3 freeze thaw cycles. Pt tolerated well. Cande YANES NEUROLOGY ORDERABLES Final Result documented in this encounter Visit Diagnoses Diagnosis Need for immunization against influenza- Primary Need for prophylactic vaccination and inoculation against influenza Common wart Other specified viral warts documented in this encounter Additional Health Concerns Assessment Noted Time PHQ-9 Depression Total Score: 0 01/28/20 22 1:07 PM CDT documented as of this encounter Care Teams Meeting Specialist Relationship Specialty Start Date End Date Bianca Aggarwal FNP [address] [place] [address] PCP - General Nurse Practitioner Family 05/20/20 documented as of this encounter
--- OUTSIDE RECORDS SUMMARY | 2024-04-04 19:43 | XMS_ITS | Encounter Summary ---
Author Organization [facility] Address [address] [place] [address]. [place], [place] [address] [place] [address] Care Team Providers Care Toll Bridge Operator Name Role Phone Claribelgoyo Bianca ONDINA Primary Care Provider [phone] Reason for Visit * Reason Onset Date Comments COVID-19 04/28/2021 Encounter Details Date Type Department Care Team (Late st Contact Info) Description 04/28/2021 Telephone [facility] Medical Group Family & Internal Medicine [facility] [address] [place] [address] Bianca Aggarwal FNP [address] [place], [place] [phone] COVID-19 Social History Tobacco Use Types Packs/Day [...] on file Legal Sex Female 1:23 PM FORKLIFT DRIVER Gender Identity Not on file Sexual Orientation Not on file documented as of this encounter Progress Notes * Ashley Khan MA - 04/28/2021 3:19 PM CST Patient notified and v/u LIFT DRIVER * ONDINA Pope - 04/28/2021 1:03 PM CST Usually not but if her ear is causing her pain, we can send out amoxicillin 875 mg bid x 10d LIFT DRIVER * Anila Morejon - 04/28/2021 9:13 AM CST Patient started having covid symptoms on 04/24, ear ache, clogged up head, head ache, cough and fatigue. Patient tested positive on 04/27 with an at home test. Patient is vaccinated. She is asking if there is anything that we can call out for her. [place] [facility] [place] LIFT DRIVER documented in this encounter Plan of Treatment Upcoming Encounters Date Type Department Care Team (Late st Contact Info) Description 09/06/2024 10:40 AM CDT Office Visit [facility] Medical Group Family & Internal Medicine - [address] [address] Bianca Aggarwal FNP [address] [place] [address] documented as of this encounter Visit Diagnoses Diagnosis Earache- Primary Otalgia, unspecified documented in this encounter Additional Health Concerns Assessment Noted Time PHQ-9 Depression Total Score: 3 05/20/19 21 3:25 PM FORKLIFT DRIVER documented as of this encounter Care Teams Toll Bridge Operator Relationship Specialty Start Date End Date Bianca Aggarwal FNP [address] [place] [address] PCP - General Nurse Practitioner Family 05/20/20 documented as of this encounter
--- OUTSIDE RECORDS SUMMARY | 2024-04-04 19:43 | XMS_ITS | Encounter Summary ---
Author Organization [facility] Address [address] [place] [address]. 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 No / Unsure 01/27/2022 12:17 PM CDT documented as of this encounter Plan of Treatment Upcoming Encounters Date Type Department Care Team (Late st Contact Info) Description 09/06/2024 10:40 AM CDT Office Visit [facility] Medical Group Family & Internal Medicine - [place] [address] [place] [address] Bianca Aggarwal FNP [address] [place], [place] [phone] documented as of this encounter Visit Diagnoses Not on filedocumented in this encounter Additional Health Concerns Assessment Noted Time PHQ-9 Depression Total Score: 0 01/28/20 22 1:07 PM CDT documented as of this encounter Care Teams Pulp Drier Relationship Specialty Start Date End Date Bianca Aggarwal FNP [address] [place] [address] PCP - General Nurse Practitioner Family 05/20/20 documented as of this encounter
--- OUTSIDE RECORDS SUMMARY | 2024-04-04 19:43 | XMS_ITS | Encounter Summary ---
Author Organization [facility] Address [address] [place] [address]. 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 Gender Identity Not on file Sexual Orientation Not on file documented as of this encounter Plan of Treatment Upcoming Encounters Date Type Department Care Team (Late Contact Info) Description 09/06/2024 10:40 AM CDT Office Visit [facility] Medical Group Family & Internal Medicine - [place] [address] [place] [address] Bianca Aggarwal FNP [address] [place] [address] documented as of this encounter Procedures Procedure Name Priority Date/Time Associated Diagnosis Comments VASCULAR LAB GENERIC (SCAN ORDER) 08/05/2021 documented in this encounter Results * VASCULAR LAB GENERIC (08/05/2021) 08/05/2021 Narrative 08/05/2021 Ordered by an unspecified provider. us Documents Scanned SCANNING Final Result documented in this encounter Visit Diagnoses Not on filedocumented in this encounter Additional Health Concerns Assessment Noted Time PHQ-9 Depression Total Score: 3 05/20/19 21 3:25 PM PATTERNMAKER WOOD documented as of this encounter Care Teams Turbo Generator Oiler Relationship Specialty Start Date End Date Bianca Aggarwal FNP [address] [place] [address] PCP - General Nurse Practitioner Family 05/20/20 documented as of this encounter
--- OUTSIDE RECORDS SUMMARY | 2024-04-04 19:43 | XMS_ITS | Encounter Summary ---
Author Organization [facility] Address [address] [place] [address]. 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 Gender Identity Not on file Sexual Orientation [...] Medical Group Family & Internal Medicine - [place] [address] [place] [address] Bianca Aggarwal FNP [facility] [place], [place] [phone] documented as of this encounter Visit Diagnoses Not on filedocumented in this encounter Additional Health Concerns Assessment Noted Time PHQ-9 Depression Total Score: 3 05/20/19 21 3:25 PM COTTON WEIGHER documented as of this encounter Care Teams Brazer Assembler Relationship Specialty Start Date End Date Bianca Aggarwal FNP [address] [place] [id number] PCP - General Nurse Practitioner Family 05/20/20 documented as of this encounter
--- OUTSIDE RECORDS SUMMARY | 2024-04-04 19:43 | XMS_ITS | Encounter Summary ---
Author Organization [facility] Address [address] [place] [address]. 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 Gender Identity Not on file Sexual Orientation [...] Medical Group Family & Internal Medicine - [place] [address] [place] [phone] Bianca Aggarwal FNP [facility] [place] [address] documented as of this encounter Visit Diagnoses Not on filedocumented in this encounter Additional Health Concerns Assessment Noted Time PHQ-9 Depression Total Score: 4 09/12/19 22 11:24 AM CDT documented as of this encounter Care Teams Boiler Reliner Relationship Specialty Start Date End Date Bianca Aggarwal FNP [address] [place] [address] PCP - General Nurse Practitioner Family 05/20/20 documented as of this encounter
--- OUTSIDE RECORDS SUMMARY | 2024-04-04 19:43 | XMS_ITS | Encounter Summary ---
Author Organization [facility] Address [address] [place] [address]. 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 [place] [address] documented as of this encounter Visit Diagnoses Not on filedocumented in this encounter Additional Health Concerns Assessment Noted Time PHQ-9 Depression Total Score: 3 05/20/19 21 3:25 PM FISH BIN TENDER documented as of this encounter Care Teams Motor Builder Assembler Relationship Specialty Start Date End Date Bianca Aggarwal FNP [address] [place] [address] PCP - General Nurse Practitioner Family 05/20/20 documented as of this encounter
--- OUTSIDE RECORDS SUMMARY | 2024-04-04 19:43 | XMS_ITS | Encounter Summary ---
Author Organization [facility] Address [address] [place] [address]. [place], [place] [address] [place] [address] Care Team Providers Care Lens Marker Name Role Phone Bianca Aggarwal Primary Care Provider [phone] Reason for Visit * Reason Comments Lab (SCAN) Encounter Details Date Type Department Care Team (Latest Contact Info) Description 09/03/2021 Scan HEALTH INFO SRVCS Scanned, Documents Lab (SCAN) Social History Tobacco Use Types [...] on file Legal Sex Female 1:23 PM FOURDRINIER WIRE WEAVER Gender Identity Not on file Sexual Orientation [...] [facility] Family & Internal Medicine [address] [address] Bianca Aggarwal FNP [facility] [place] [address] documented as of this encounter Procedures Procedure Name Priority Date/Time Associated Diagnosis Comments OUTSIDE LAB (SCAN ORDER) 09/03/2021 documented in this encounter Results * OUTSIDE LAB (SCAN) (09/03/2021) 09/03/2021 Narrative 09/03/2021 Ordered by an unspecified provider. us Documents Scanned SCANNING Final Result documented in this encounter Visit Diagnoses Not on filedocumented in this encounter Additional Health Concerns Assessment Noted Time PHQ-9 Depression Total Score: 3 05/20/19 21 3:25 PM FOURDRINIER WIRE WEAVER documented as of this encounter Care Teams Lens Marker Relationship Specialty Start Date End Date Bianca Aggarwal FNP [address] [place] [address] PCP - General Nurse Practitioner Family 05/20/20 documented as of this encounter
--- OUTSIDE RECORDS SUMMARY | 2024-04-04 19:43 | XMS_ITS | Encounter Summary ---
Author Organization [facility] Address [address] [place] [address]. [place] [address] [place] [address] Care Team Providers Care Regional Company Truck Driver Name Role Phone Bianca Aggarwal Primary Care Provider [phone] Encounter Details Date Type Department Care Team (Latest Contact Info) Description 03/16/2022 Travel Social History Tobacco Use Types Packs/Day [...] on file Legal Sex Female 1:23 PM FINISH PATCHER Gender Identity Not on file Sexual Orientation Not on file COVID-19 Exposure Response Date Recorded In the last 10 days, have yo u been in contact with someone who was confirmed or suspected to have Coronavirus/COVID-19? No / Unsure 03/16/2022 10:38 AM FINISH PATCHER documented as of this encounter Plan of Treatment Upcoming Encounters Date Type Department Care Team (Late st Contact Info) Description 09/06/2024 10:40 AM CDT Office Visit [facility] Family & Internal Medicine - [place] [address] [place] [address] Bianca Aggarwal FNP [address] [place] [address] documented as of this encounter Visit Diagnoses Not on filedocumented in this encounter Additional Health Concerns Infection Onset Date Last Indicated Resolved Time COVID-19 Rule Out 03/16/2022 03/16/2022 03/17/2022 5:53 AM FINISH PATCHER Assessment Noted Time PHQ-9 Depression Total Score: 0 01/28/20 22 1:07 PM CDT documented as of this encounter Care Teams Regional Company Truck Driver Relationship Specialty Start Date End Date Bianca Aggarwal FNP [address] [place] [address] PCP - General Nurse Practitioner Family 05/20/20 documented as of this encounter
--- OUTSIDE RECORDS SUMMARY | 2024-04-04 19:43 | XMS_ITS | Encounter Summary ---
Author Organization [facility] Address [address] [place] [address]. [place] [address] [place] [address] Care Team Providers Care Poultry Process Worker Name Role Phone ClaribelBianca nance ONDINA Primary Care Provider [phone] Reason for Visit * Reason Onset Date Comments Refill Request 04/29/2022 Encounter Details Date Type Department Care Team (Late st Contact Info) Description 04/29/2022 Telephone [facility] Family & Internal Medicine [facility] [address] [place] [address] Bianca Aggarwal FNP [facility] [place] [address] Refill Request Social History Tobacco Use Types Packs/Day Years [...] on file Legal Sex Female 1:23 PM WHEAT GROWER Gender Identity Not on file Sexual Orientation Not on file documented as of this encounter Progress Notes * Laurie Penny MA - 04/29/2022 4:51 PM CST Rx sent t n T GROWER * ONDINA Pope - 04/29/2022 4:05 PM CST Gemtesa 75 mg daily 90 with 3 refills Magnesium 400 mg daily dsp 90 with 3 refills T GROWER * Ashley Khan MA - 04/29/2022 12:13 PM CST Per previous task patient is asking for prescription magnesium 400mg and Gemtesa 75mg . Neither areon medlist. If ok please send back with directions, qty and refills if appropriate [facility] T GROWER documented in this encounter Plan of Treatment Upcoming Encounters Date Type Department Care Team (Late st Contact Info) Description 09/06/2024 10:40 AM CDT Office Visit [facility] Family & Internal Medicine - [address] [address] Bianca Aggarwal FNP [address] [place] [address] documented as of this encounter Visit Diagnoses Diagnosis Overactive bladder- Primary Hypertonicity of bladder Low magnesium level documented in this encounter Additional Health Concerns Assessment Noted Time PHQ-9 Depression Total Score: 0 01/28/20 22 1:07 PM CDT documented as of this encounter Care Teams Poultry Process Worker Relationship Specialty Start Date End Date Bianca Aggarwal FNP [address] [place] [address] PCP - General Nurse Practitioner Family 05/20/20 documented as of this encounter
--- OUTSIDE RECORDS SUMMARY | 2024-04-04 19:43 | XMS_ITS | Encounter Summary ---
Author Organization [facility] Address [address] [place] [address]. [place] [address] [place] [address] Care Team Providers Care Airline Ticket Agent Name Role Phone Bianca Aggarwal Primary Care Provider [phone] Reason for Visit * Reason Comments Lab (SCAN) Encounter Details Date Type Department Care Team (Latest Contact Info) Description 11/17/2022 Scan HEALTH INFO SRVCS Scanned, Doc Med [...] on file Legal Sex Female 1:23 PM DIGITAL PHOTOGRAPHER Gender Identity Not on file Sexual Orientation Not on file documented as of this encounter Plan of Treatment Upcoming Encounters Date Type Department Care Team (Late st Contact Info) Description 09/06/2024 10:40 AM CDT Office Visit [facility] Family & Internal Medicine - [place] [id number] [place] [phone] Bianca Aggarwal FNP [address] [place] [address] documented as of this encounter Procedures Procedure Name Priority Date/Time Associated Diagnosis Comments OUTSIDE PT/INR (SCAN ORDER) 11/17/2022 OUTSIDE LAB (SCAN ORDER) 11/17/2022 OUTSIDE LAB (SCAN ORDER) 11/17/2022 OUTSIDE LAB (SCAN ORDER) 11/17/2022 OUTSIDE LAB (SCAN ORDER) 11/17/2022 documented in this encounter Results * OUTSIDE LAB (SCAN) (11/17/2022) 11/17/2022 [employer] [facility] Scanned SCANNING Final Resu lt * OUTSIDE LAB (SCAN) (11/17/2022) 11/17/2022 Result [facility] Scanned SCANNING Final Resu lt * OUTSIDE LAB (SCAN) (11/17/2022) 11/17/2022 Result [facility] Scanned SCANNING Final Resu lt * OUTSIDE LAB (SCAN) (11/17/2022) 11/17/2022 Result [facility] Scanned SCANNING Final Resu lt * OUTSIDE PT/INR (SCAN) (11/17/2022) 11/17/2022 Result [facility] Scanned SCANNING Final Resu lt documented in this encounter Visit Diagnoses Not on filedocumented in this encounter Additional Health Concerns Assessment Noted Time PHQ-9 Depression Total Score: 0 01/28/20 22 1:07 PM CDT documented as of this encounter Care Teams Airline Ticket Agent Relationship Specialty Start Date End Date Bianca Aggarwal FNP [address] [place] [address] PCP - General Nurse Practitioner Family 05/20/20 documented as of this encounter
--- OUTSIDE RECORDS SUMMARY | 2024-04-04 19:43 | XMS_ITS | Encounter Summary ---
Author Organization [facility] Address [address] [place] [address]. [place] [address] [place] [address] Care Team Providers Care Automotive General Sales Manager Name Role Phone Bianca Aggarwal Primary Care Provider [phone] Encounter Details Date Type Department Care Team (Latest Contact Info) Description 09/11/2021 Travel Social History Tobacco Use Types Packs/Day [...] on file Legal Sex Female 1:23 PM STONE FABRICATOR Gender Identity Not on file Sexual Orientation [...] Medical Group Family & Internal Medicine - [place] [address] [place] [address] Bianca Aggarwal FNP [address] [place], [place] [address] documented as of this encounter Visit Diagnoses Not on filedocumented in this encounter Additional Health Concerns Assessment Noted Time PHQ-9 Depression Total Score: 4 09/12/19 22 11:24 AM CDT documented as of this encounter Care Teams Automotive General Sales Manager Relationship Specialty Start Date End Date Bianca Aggarwal FNP [address] [place] [address] PCP - General Nurse Practitioner Family 05/20/20 documented as of this encounter
--- OUTSIDE RECORDS SUMMARY | 2024-04-04 19:43 | XMS_ITS | Encounter Summary ---
Author Organization [facility] Address [address] [place] [address]. [place] [address] [place] [address] Care Team Providers Care Stretch Machine Operator Name Role Phone Claribelgoyo Bianca ONDINA Primary Care Provider [phone] Reason for Visit * Reason Onset Date Comments Blood Pressure 03/02/2021 Encounter Details Date Type Department Care Team (Late st Contact Info) Description 03/02/2021 Telephone [facility] Family & Internal Medicine [place] [address] [place] [address] Bianca Aggarwal FNP [facility]1 [place], [place] [id number] Blood Pressure Social History Tobacco Use Types [...] on file Legal Sex Female 1:23 PM CAT WAGON OPERATOR Gender Identity Not on file Sexual Orientation Not on file documented as of this encounter Progress Notes * Laurie Penny MA - 03/02/2021 4:47 PM CST Patient contacted, rx sent. She will monitor her BP and call back with #s. tn WAGON OPERATOR * ONDINA Pope - 03/02/2021 1:25 PM CST We need to start amlodipine 5 mg daily and she should continue daily monitoring. WAGON OPERATOR * Cher Bernal - 03/02/2021 1:20 PM CST Patient told to call in her BP readings and her PT was concerned about numbers today Tuesday: 181/107 Tuesday: 167/94, 172/75 Today: 188/100, 128/82 Patient is still non-weight bearing. WAGON OPERATOR documented in this encounter Plan of Treatment Upcoming Encounters Date Type Department Care Team (Late st Contact Info) Description 09/06/2024 10:40 AM CDT Office Visit [facility] Family & Internal Medicine - [address] [address] Bianca Aggarwal FNP [address] [place] [address] documented as of this encounter Visit Diagnoses Diagnosis Primary hypertension- Primary Unspecified essential hypertension documented in this encounter Additional Health Concerns Assessment Noted Time PHQ-9 Depression Total Score: 3 05/20/19 21 3:25 PM CAT WAGON OPERATOR documented as of this encounter Care Teams Stretch Machine Operator Relationship Specialty Start Date End Date Bianca Aggarwal FNP [facility] [place] [address] [place] [address] PCP - General Nurse Practitioner Family 05/20/20 documented as of this encounter
--- OUTSIDE RECORDS SUMMARY | 2024-04-04 19:43 | XMS_ITS | Encounter Summary ---
Author Organization [facility] Address [address] [place] [address]. [place], [place] [address] [place] [address] Care Team Providers Care Wind Turbine Erector Name Role Phone Bianca Aggarwal Primary Care Provider [phone] Encounter Details Date Type Department Care Team (Latest Contact Info) Description 05/20/2020 Scan HEALTH INFO SRVCS Scanned, Documents Social [...] on file Legal Sex Female 1:23 PM BANKING ANALYST Gender Identity Not on file Sexual Orientation Not on file COVID-19 Exposure Response Date Recorded In the last month, have you been in contact with someone who was confirmed or suspected to have Coronavirus / COVID-19? No / Unsure 05/20/2020 1:51 PM BANKING ANALYST documented as of this encounter Plan of Treatment Upcoming Encounters Date Type Department Care Team (Late st Contact Info) Description 09/06/2024 10:40 AM CDT Office Visit [facility] Family & Internal Medicine - [place] [address] [place] [address] Bianca Aggarwal FNP [facility]1 [place], [place] [address] documented as of this encounter Visit Diagnoses Not on filedocumented in this encounter Additional Health Concerns Assessment Noted Time PHQ-9 Depression Total Score: 3 05/20/19 21 3:25 PM BANKING ANALYST documented as of this encounter Care Teams Wind Turbine Erector Relationship Specialty Start Date End Date Bianca Aggarwal FNP [address] [place] [id number] PCP - General Nurse Practitioner Family 05/20/20 documented as of this encounter
--- OUTSIDE RECORDS SUMMARY | 2024-04-04 19:43 | XMS_ITS | Encounter Summary ---
Author Organization [facility] Address [address] [place] [address]. [place] [address] [place] [address] Care Team Providers Care Travel Sales Consultant Name Role Phone Jasen Bianca [place] Primary Care Provider [phone] Reason for Visit * Reason Onset Date Comments Other 06/03/2021 Encounter Details Date Type Department Care Team (Late st Contact Info) Description 06/03/2021 Telephone [facility] Family & Internal Medicine [facility] [address] [place] [address] Bianca Aggarwal FNP [facility]1 [place], [place] [id number] Other Social History Tobacco Use Types Packs/Day [...] on file Legal Sex Female 1:23 PM INTEGRATION PROJECT MANAGER Gender Identity Not on file Sexual Orientation Not on file documented as of this encounter Progress Notes * Ashley Khan MA - 06/03/2021 1:36 PM CST Patient notified and v/u GRATION PROJECT MANAGER * Ashley Khan MA - 06/03/2021 1:23 PM CST Lmtc, rx sent to pharmacy 06/03/21 GRATION PROJECT MANAGER * ONDINA Pope - 06/03/2021 11:14 AM CST Flexeril 5 -10 mg up to three times a day as needed dsp 60 This will make her sleepy. Use with caution GRATION PROJECT MANAGER * Ramandeep Mark - 06/03/2021 10:14 AM CST Pt calling requesting stronger muscle relax [facility] GRATION PROJECT MANAGER documented in this encounter Plan of Treatment Upcoming Encounters Date Type Department Care Team (Late st Contact Info) Description 09/06/2024 10:40 AM CDT Office Visit [facility] Family & Internal Medicine - [address] [address] Bianca Aggarwal FNP [address] [place] [address] documented as of this encounter Visit Diagnoses Diagnosis Acute bilateral low back pain without sciatica- Primary documented in this encounter Additional Health Concerns Assessment Noted Time PHQ-9 Depression Total Score: 3 05/20/19 21 3:25 PM INTEGRATION PROJECT MANAGER documented as of this encounter Care Teams Travel Sales Consultant Relationship Specialty Start Date End Date Bianca Aggarwal FNP [facility] [place] [address] PCP - General Nurse Practitioner Family 05/20/20 documented as of this encounter
--- OUTSIDE RECORDS SUMMARY | 2024-04-04 19:43 | XMS_ITS | Encounter Summary ---
Author Organization [facility] Address [address] [place] [address]. [place], [place] [address] [place] [address] Care Team Providers Care Aircraft Skin Burnisher Name Role Phone Bianca Aggarwal Primary Care Provider [phone] Reason for Visit * Reason Comments Lab (SCAN) Encounter Details Date Type Department Care Team (Latest Contact Info) Description 11/26/2020 Scan HEALTH INFO SRVCS Scanned, Documents Lab [...] on file Legal Sex Female 1:23 PM REPORT PROGRAMMER Gender Identity Not on file Sexual Orientation [...] HOSPITAL Medical [facility] Family & Internal Medicine [address] [address] Bianca Aggarwal FNP [address] [place] [address] documented as of this encounter Procedures Procedure Name Priority Date/Time Associated Diagnosis Comments OUTSIDE LAB (SCAN ORDER) 11/26/2020 documented in this encounter Results * OUTSIDE LAB (SCAN) (11/26/2020) 11/26/2020 Narrative 11/26/2020 Ordered by an unspecified provider. us Documents Scanned SCANNING Final Result documented in this encounter Visit Diagnoses Not on filedocumented in this encounter Additional Health Concerns Assessment Noted Time PHQ-9 Depression Total Score: 3 05/20/19 21 3:25 PM REPORT PROGRAMMER documented as of this encounter Care Teams Aircraft Skin Burnisher Relationship Specialty Start Date End Date Bianca Aggarwal FNP [address] [place] [address] PCP - General Nurse Practitioner Family 05/20/20 documented as of this encounter
--- OUTSIDE RECORDS SUMMARY | 2024-04-04 19:43 | XMS_ITS | Encounter Summary ---
Author Organization [facility] Address [address] [place] [address]. [place], [place] [address] [place] [address] Care Team Providers Care Training Officer Name Role Phone Bianca Aggarwal IV TECHNICIAN Primary Care Provider [phone] Encounter Details Date Type Department Care Team (Late Contact Info) Description 05/20/2020 Orders Only [facility] Family & Internal Medicine [address] [address] Laurie Penny, ASTRID Social History [...] on file Legal Sex Female 1:23 PM SHOE DRESSER Gender Identity Not on file Sexual Orientation Not on file COVID-19 Exposure Response Date Recorded In the last month, have you been in contact with someone who was confirmed or suspected to have Coronavirus / COVID-19? No / Unsure 05/20/2020 1:51 PM SHOE DRESSER documented as of this encounter Plan of Treatment Upcoming Encounters Date Type Department Care Team (Late Contact Info) Description 09/06/2024 10:40 AM CDT Office Visit [facility] Family & Internal Medicine [address] [address] Bianca Aggarwal FNP [address] [place] [address] documented as of this encounter Visit Diagnoses Not on filedocumented in this encounter Additional Health Concerns Assessment Noted Time PHQ-9 Depression Total Score: 3 05/20/19 21 3:25 PM SHOE DRESSER documented as of this encounter Care Teams Training Officer Relationship Specialty Start Date End Date Bianca Aggarwal FNP [facility]1 [place] [address] PCP - General Nurse Practitioner Family 05/20/20 documented as of this encounter
--- OUTSIDE RECORDS SUMMARY | 2024-04-04 19:43 | XMS_ITS | Encounter Summary ---
Author Organization [facility] Address [address] [place] [address]. [place] [address] [place] [address] Care Team Providers Care Traffic Signal Technician Name Role Phone Claribelgoyo Bianca ONDINA Primary Care Provider [phone] Reason for Visit * Reason Onset Date Comments Sinus Problem 10/13/2021 Encounter Details Date Type Department Care Team (Late st Contact Info) Description 10/13/2021 Telephone [facility] Medical Group Family & Internal Medicine [place] [address] [place] [address] Bianca Aggarwal FNP [facility]1 [place], [place] [phone] Sinus Problem Social History Tobacco Use Types [...] on file Legal Sex Female 1:23 PM PECAN HULLER Gender Identity Not on file Sexual Orientation Not on file documented as of this encounter Progress Notes * Laurie Penny MA - 10/13/2021 1:59 PM CDT Patient has a covid test at home that she will do and cb with results. tn * ONDINA Pope - 10/13/2021 1:47 PM CDT Needs covid testing done. * Laurie Penny MA - 10/13/2021 1:43 PM CDT Patient c/o runny nose,sneezing, congestion and green mucous x 1 week. Has not tested for Covid. Requesting a zpak. She is going to [place] Tuesday for 2 weeks. [place] [facility] Allergies morphine and flecinide documented in this encounter Plan of Treatment Upcoming Encounters Date Type Department Care Team (Late st Contact Info) Description 09/06/2024 10:40 AM CDT Office Visit [facility] Medical Group Family & Internal Medicine - [place] [address] [place] [address] Bianca Aggarwal FNP [facility]1 [place] [address] documented as of this encounter Visit Diagnoses Not on filedocumented in this encounter Additional Health Concerns Assessment Noted Time PHQ-9 Depression Total Score: 4 09/12/19 22 11:24 AM CDT documented as of this encounter Care Teams Traffic Signal Technician Relationship Specialty Start Date End Date Bianca Aggarwal FNP [address] [place] [address] PCP - General Nurse Practitioner Family 05/20/20 documented as of this encounter
--- OUTSIDE RECORDS SUMMARY | 2024-04-04 19:43 | XMS_ITS | Encounter Summary ---
Author Organization [facility] Address [address] [place] [address]. [place], [place] [address] [place] [address] Care Team Providers Care Production Graphic Designer Name Role Phone Bianca Aggarwal Primary Care Provider [phone] Encounter Details Date Type Department Care Team (Latest Contact Info) Description 03/26/2022 Scan HEALTH INFO SRVCS Scanned, Doc Med [...] on file Legal Sex Female 1:23 PM PHYSICIAN REPRESENTATIVE Gender Identity Not on file Sexual Orientation Not on file COVID-19 Exposure Response Date Recorded In the last 10 days, have yo u been in contact with someone who was confirmed or suspected to have Coronavirus/COVID-19? No / Unsure 03/16/2022 10:38 AM PHYSICIAN REPRESENTATIVE documented as of this encounter Plan of Treatment Upcoming Encounters Date Type Department Care Team (Late st Contact Info) Description 09/06/2024 10:40 AM CDT Office Visit [facility] Medical Group Family & Internal Medicine - [place] [address] [place] [phone] Bianca Aggarwal FNP [facility] [place] [address] documented as of this encounter Visit Diagnoses Not on filedocumented in this encounter Additional Health Concerns Assessment Noted Time PHQ-9 Depression Total Score: 0 01/28/20 22 1:07 PM CDT documented as of this encounter Care Teams Production Graphic Designer Relationship Specialty Start Date End Date Bianca Aggarwal FNP [facility] [place] [address] PCP - General Nurse Practitioner Family 05/20/20 documented as of this encounter
--- OUTSIDE RECORDS SUMMARY | 2024-04-04 19:43 | XMS_ITS | Encounter Summary ---
Author Organization [facility] Address [address] [place] [address]. [place] [address] [place] [address] Care Team Providers Care House Decorator Name Role Phone Bianca Aggarwal MOTION PICTURE PROJECTIONIST APPRENTICE Primary Care Provider [phone] Reason for Visit * Reason Comments Earache B/L x 2 weeks Wart Wart removal on fing er Encounter Details Date Type Department Care Team (Late st Contact Info) Description 10/30/2021 10:00 AM CDT Office Visit [facility] Family & Internal Medicine [id number] [place] [phone] Bianca Aggarwal FNP [facility] [place] [address] Earache (B/L x 2 weeks); Wart (Wart removal on finger) Social History Tobacco Use Types Packs/Day Years [...] on file 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 No / Unsure 10/30/2021 9:50 AM CDT documented as of this encounter Last Filed Vital Signs Vital Sign Reading Time Taken Comments Blood Pressure 120/87 10/30/2021 10:08 AM CDT Pulse 75 10/30/2021 10:08 AM CDT Temperature 36.5 ??C (97.7 ??F) 10/30/2021 10:08 AM C DT Respiratory Rate 16 10/30/2021 10:08 AM CDT Oxygen Saturation 97% 10/30/2021 10:08 AM CDT Inhaled Oxygen Concentration - - Weight 99.3 kg (219 lb) 10/30/2021 10:08 AM CDT Height 170.2 cm (5' 7 ) 10/30/2021 10:08 AM CDT Body Mass Index 34.3 10/30/2021 10:08 AM CDT documented in this encounter Patient Instructions * Patient Instructions* ONDINA Pope - 10/30/2021 10:00 AM CDT Cryotherapy Cryotherapy is the treatment of lesions with the application of a cold substance. In most cases, liquid nitrogen is used to destroy the lesion(s). Liquid nitrogen is so cold, -196?? Celsius, it feelslike it is burning when it is applied. After treatment with liquid nitrogen, there may be some burning sensation or pain that can last up to 24 hours. The area may also be swollen and red. The discomfort can be relieved with ibuprofen (Advil, Motrin), acetaminophen (Extra Strength Tylenol), or similar pain relief medication. Within 24 to 48 hours, a blister may form. Occasionally, these blisters will become filled with blood and become very dark. This is no cause for concern. The blister will gradually dry up over a period of several days, eventually from the healing skin below in about one to two weeks. Thesurrounding skin will become red and the area may become itchy. This is all part of the normal healing process. Occasionally, the crusts will last as long as four weeks when certain deeper spots on the skin are treated. Sometimes a permanent white uriel or scar will be left after healing. You may continue all of your normal activities as long as they do not cause pain in the treated areas. It is okay to get the area wet. After therapy or if the blister is still intact - You may treat it like normal skin. Covering the area with a bandage may offer some comfort and protection from trauma but is not absolutely necessary. If the blister is uncomfortable - Clean a small needle with rubbing alcohol, then gently make a small hole in the side of the blister to drain the blister fluid. This often gives immediate relief. Donot remove the blister roof, as the blister aids in healing. In time it will fall off on its own. Once the blister roof falls off or a sore forms - Clean the blister sites with soap and water. Rinse the area and pat dry. Do not force off the blister roof or crust. Apply an antibiotic ointment such as Polysporin or Bacitracin. A bandage may be applied loosely over the blister until it is healed if desired. Call our office if you are concerned it may be infected. Some redness, itching and oozing is part of the normal healing process. Signs of infection include increasing redness, increasing pain, swelling, heat, or yellow discharge. documented in this encounter Progress Notes * ONDINA Pope - 10/30/2021 10:00 AM CDTAssociated Order(s): Lesion Destruction Post-Procedure Diagnose(s): Common wart; Wart on thumb Summary: ear issues, wart Office Progress Note Reason for Visit: Earache (B/L x 2 weeks) and Wart (Wart removal on finger) History of Present Illness: Brenna presents to the office for ear issues and a wart Bilateral ear pain that started a week ago Tuesday. She has a wart on her right thumb that we have froze before that needs to be treated again. She also has one starting on her right 5th finger ROS: Review of Systems Constitutional: Negative for chills, diaphoresis, fever, malaise/fatigue and weight loss. HENT: Positive for ear pain. Negative for congestion, ear discharge, hearing loss, nosebleeds, sinus pain, sore throat [...] pain. Skin: Negative for itching and rash. warts Neurological: Negative for dizziness, tingling, tremors, sensory [...] take another tablet. 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 AMLODIPINE 10 MG tablet TAKE ONE TABLET BY MOUTH DAILY stop taking 5mg TABLETS ??? atorvastatin 80 MG tablet ??? celecoxib 200 MG capsule Take 200 mg by mouth 2 (two) times daily. ??? ELIQUIS 5 MG tablet Take 5 mg by mouth 2 (two) times daily. ??? estradiol (ESTRACE) 0.5 MG tablet ??? estradiol 1 MG tablet Take 1.5 [...] There is normal jaw occlusion. Right Ear: Hearing, tympanic membrane, ear canal and external ear normal. Left Ear: Hearing, tympanic membrane, ear canal and external ear normal. Nose: Nose normal. [...] spinous process tenderness or muscular tenderness. Lymphadenopathy: Cervical: No cervical adenopathy. Skin: General: Skin is warm and dry. Capillary Refill: Capillary refill takes less than 2 seconds. Findings: Lesion (right thumb and right 4th finger wart) present. No rash. Neurological: Mental Status: She [...] normal. Judgment: Judgment normal. Lesion Destruction Date/Time: 10/30/2021 10:57 AM Performed by: ONDINA Pope Authorized by: ONDINA Pope Number of Lesions: 2 Lesion 1: Body area: upper extremity Upper extremity location: R thumb Malignancy: benign lesion Destruction method: cryotherapy Lesion 2: Body area: upper extremity Upper extremity location: R small finger Malignancy: benign lesion Destruction method: cryotherapy Comments: Liquid nitrogen was applied for 3-5 seconds to the skin lesions and the expected blistering or scabbing reaction explained. Do not pick at the areas. Patient reminded to expect hypopigmented scars from the procedure. Return if lesions fail to fully resolve. She tolerated the procedure well. Filed Vitals: 10/30/21 1008 BP: 120/87 Pulse: 75 Resp: 16 Temp: 97.7 ??F (36.5 ??C) SpO2: 97% Weight: 99.3 kg (219 lb) Height: 5' 7 (1.702 m) Diagnoses/Impression: 1. Otalgia of both ears 2. Common wart DESTRUCT LESION, 1-14 3. Wart on thumb DESTRUCT LESION, 1-14 Recommendations and Plan: 1. Otalgia of both ears - advised to start an antihistamine, such as claritin or zyrtec daily for the next 10 days to see if this helps. 2. Common wart - DESTRUCT LESION, 14 - procedure performed as documented - advised to watch for s/s of infection - advised f/u prn 3. Wart on thumb - DESTRUCT LESION, 14 - procedure performed as documented - advised to watch for s/s of infection - advised f/u prn Orders Placed This Encounter ??? DESTRUCT LESION, 1-14 ??? Lesion Destruction ??? estradiol (ESTRACE) 0.5 MG tablet Cannot display discharge medications since this is not an admission. I spent 30 minutes today reviewing the patient's medical record, obtaining history, performing an exam, ordering medications, tests, and/or procedures, documenting in the medical record, referring and/or communicating with other health care providers, counseling and educating the patient/family/caregiver, reviewing and communicating test results and coordination of care. I spent an additional 7 minutes performing the procedure. PCP: ONDINA ATKINS 11/04/2021 documented in this encounter Plan of Treatment Upcoming Encounters Date Type Department Care Team (Late st Contact Info) Description 09/06/2024 10:40 AM CDT Office Visit [facility] Family & Internal Medicine - [address] [phone] Bianca Aggarwal FNP [address] [place] [address] Scheduled Orders Name Type Priority Associated Diagnoses Orde r Schedule DESTRUCT LESION, 1-14 Procedures Routine Common wart Wart on thumb Ordered: 11/04/2021 documented as of this encounter Procedures Procedure Name Priority Date/Time Associated Diagnosis Comments DESTRUCTION BY NEUROLYTIC AGENT Routine 10/30/2021 10:57 AM CDT Common wart Wart on thumb documented in this encounter Results * Lesion Destruction (10/30/2021 10:57 AM CDT) Narrative Bianca Aggarwal FNP - 10/30/2021 10:57 AM CDT ONDINA Pope ? 11/04/2021 ??3:38 PM Lesion Destruction Date/Time: 10/30/2021 10:57 AM Performed by: ONDINA Pope Authorized by: ONDINA Pope Number of Lesions: 2 Lesion 1: ??Body area: upper extremity ??Upper extremity location: R thumb ??Malignancy: benign lesion ?Destruction method: cryotherapy ?? Lesion 2: ??Body area: upper extremity ??Upper extremity location: R small finger ??Malignancy: benign lesion ?Destruction method: cryotherapy ?? Comments: Liquid nitrogen was applied for 3-5 seconds to the skin lesions and the expected blistering or scabbing reaction explained. Do not pick at the areas. Patient reminded to expect hypopigmented scars from the procedure. Return if lesions fail to fully resolve. She tolerated the procedure well. Bianca [place] NEUROLOGY ORDERABLES Final Res ult documented in this encounter Visit Diagnoses Diagnosis Otalgia of both ears- Primary Otalgia, unspecified Common wart Other specified viral warts Wart on thumb documented in this encounter Additional Health Concerns Assessment Noted Time PHQ-9 Depression Total Score: 4 09/12/19 22 11:24 AM CDT documented as of this encounter Care Teams House Decorator Relationship Specialty Start Date End Date Bianca Aggarwal FNP [address] [place] [address] PCP - General Nurse Practitioner Family 05/20/20 documented as of this encounter
--- OUTSIDE RECORDS SUMMARY | 2024-04-04 19:43 | XMS_ITS | Encounter Summary ---
Author Organization [facility] Address [address] [place] [address]. 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 No / Unsure 09/11/2021 10:18 AM CDT documented as of this encounter Progress Notes * Christy Armstrong RN - 09/22/2021 4:51 PM CDT Spoke with patient and informed her of her MRI results and recommendations per provider. Patient verbalized understanding of results. Opportunity given for all questions to be answered, no further needs voiced at this time. LL-09/22/21 documented in this encounter Plan of Treatment Upcoming Encounters Date Type Department Care Team (Late st Contact Info) Description 09/06/2024 10:40 AM CDT Office Visit [facility] Family & Internal Medicine - [address] [phone] Bianca Aggarwal FNP [address] [place] [address] documented as of this encounter Visit Diagnoses Not on filedocumented in this encounter Additional Health Concerns Assessment Noted Time PHQ-9 Depression Total Score: 4 09/12/19 22 11:24 AM CDT documented as of this encounter Care Teams Software Support Representative Relationship Specialty Start Date End Date Bianca Aggarwal FNP [address] [place] [address] PCP - General Nurse Practitioner Family 05/20/20 documented as of this encounter
--- OUTSIDE RECORDS SUMMARY | 2024-04-04 19:43 | XMS_ITS | Encounter Summary ---
Author Organization [facility] Address Formerly [facility] [facility] [place] [address] [place] [address] Care Team Providers Care Power Electronics Engineer Name Role Phone Bianca Aggarwal Primary Care Provider [phone] Reason for Referral * Imaging (Routine) - Closed Specialty Diagnoses / Procedures Referred By Janice vergara Referred To Contact RADIOLOGY Diagnoses Acute traumatic internal derangement of right knee, subsequent encounter Pain and swelling of knee, right H/O right knee surgery Procedures MRI KNEE RT WO CON MRI KNEE RT WO CON Bianca Aggarwal FNP [address] [place] [address] Phone: tel: fax: [facility] [address] [place] [phone] Phone: tel: fax: Referral ID Status Reason Start Date Expiration Date Visits Re quested Visits Authorized [id number] Closed 09/15/2021 10/15/2022 1 1 Reason for Visit * Reason Onset Date Comments Referral 09/15/2021 Encounter Details Date Type Department Care Team (Late st Contact Info) Description 09/15/2021 Telephone [facility] Family & Internal Medicine [phone] [place] [address] Bianca Aggarwal FNP [address] [place], [place] [phone] Referral Social History Tobacco Use Types Packs/Day Years [...] on file 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 No / Unsure 09/11/2021 10:18 AM CDT documented as of this encounter Progress Notes * Laurie Penny MA - 09/15/2021 4:40 PM CDT Patient requested MRI to be done at [facility]. New order placed and faxed to [phone] * Kellen Arcos - 09/15/2021 12:57 PM CDTSummary: Referral Patient called in stating Bianca gave her a referral for an MRI. She states they called her today to set up the appt, and that they can't get her in until end September. Patient states that is too long towait, so she called her ortho and they told her to call us and get a new referral and they can get her in today or tomorrow. She would like to speak with Laurie about making this happen, and asks she calls her back karina so she can get this done. Her call back number is [phone]. documented in this encounter Plan of Treatment Upcoming Encounters Date Type Department Care Team (Late st Contact Info) Description 09/06/2024 10:40 AM CDT Office Visit [facility] Family & Internal Medicine - [place] [address] [place] [address] Bianca Aggarwal FNP [address] [place] [address] Scheduled Orders Name Type Priority Associated Diagnoses Orde r Schedule MRI KNEE RT WO CON MRI Routine Acute traumatic internal derangement of right knee, subsequent encounter Pain and swelling of knee, right H/O right knee surgery Expected: 09/15/2021, Expires: 09/15/2022 documented as of this encounter Visit Diagnoses Diagnosis Acute traumatic internal derangement of right knee, subsequent encounter- Primary Pain and swelling of knee, right H/O right knee surgery Personal history of surgery to other organs documented in this encounter Additional Health Concerns Assessment Noted Time PHQ-9 Depression Total Score: 4 09/12/19 22 11:24 AM CDT documented as of this encounter Care Teams Power Electronics Engineer Relationship Specialty Start Date End Date Bianca Aggarwal FNP [facility] [place] [address] PCP - General Nurse Practitioner Family 05/20/20 documented as of this encounter
--- OUTSIDE RECORDS SUMMARY | 2024-04-04 19:43 | XMS_ITS | Encounter Summary ---
Author Organization [facility] Address [address] [place] [address]. [place], [place] [address] [place] [address] Care Team Providers Care Artificial Teeth Inspector Name Role Phone Bianca Aggarwal Primary Care Provider [phone] Reason for Visit * Reason Comments Mammogram (SCAN) Encounter Details Date Type Department Care Team (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 Contact Info) Description 09/06/2024 10:40 AM CDT Office Visit [facility] Family & Internal Medicine [address] [phone] Bianca Aggarwal FNP [address] [place] [address] documented as of this encounter Procedures Procedure Name Priority Date/Time Associated Diagnosis Comments MAMMOGRAM GENERIC (SCAN ORDER) 02/23/2022 MAMMOGRAM GENERIC (SCAN ORDER) 02/23/2022 documented in this encounter Results * MAMMOGRAM GENERIC (02/23/2022) Anatomical Region Laterality Modality Other 02/23/2022 [facility] Scanned SCANNING Final Resu lt * MAMMOGRAM GENERIC (02/23/2022) Anatomical Region Laterality Modality Other 02/23/2022 [facility] Scanned SCANNING Final Resu lt documented in this encounter Visit Diagnoses Not on filedocumented in this encounter Additional Health Concerns Assessment Noted Time PHQ-9 Depression Total Score: 0 01/28/20 22 1:07 PM CDT documented as of this encounter Care Teams Artificial Teeth Inspector Relationship Specialty Start Date End Date Bianca Aggarwal FNP [address] [place] [address] PCP - General Nurse Practitioner Family 05/20/20 documented as of this encounter
--- OUTSIDE RECORDS SUMMARY | 2024-04-04 19:44 | XMS_ITS | Encounter Summary ---
Author Organization [facility] Address [address] [place] [address]. [place], [place] [phone] [place] [address] Care Team Providers Care Economic Analyst Name Role Phone Bianca Aggarwal Primary Care Provider [phone] Reason for Visit * Reason Comments Colonoscopy Report (SCAN) Pathology (SCAN) Endoscopy (SCAN) Encounter Details Date Type Department Care Team ([facility] Contact Info) Description 03/23/2017 Scan HEALTH INFO SRVCS Scanned, Doc Med Group Colonoscopy Report (SCAN); Pathology (SCAN); Endoscopy (SCAN) Social History Tobacco Use Types Packs/Day Years Used Date Smoking Tobacco: Never Assessed AUDIT-C Answer Date Recorded Q1: How often do you have a drink containing alc ohol? 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 No / Unsure 03/16/2022 10:38 AM PROGRAMMER ANALYST HEALTH IT documented as of this encounter Plan of Treatment Upcoming Encounters Date Type Department Care Team ([facility] Contact Info) Description 09/06/2024 10:40 AM CDT Office Visit [facility] Family & Internal Medicine - [place] [address] [place] [phone] Bianca Aggarwal FNP [address] [place] [address] documented as of this encounter Procedures Procedure Name Priority Date/Time Associated Diagnosis Comments PATHOLOGY GENERIC (SCAN ORDER) 03/23/2017 ENDOSCOPY (SCAN ORDER) 03/23/2017 COLONOSCOPY GENERIC (SCAN ORDER) 03/23/2017 documented in this encounter Results * ENDOSCOPY (03/23/2017) 03/23/2017 [facility] Scanned SCANNING Final Resu lt * PATHOLOGY GENERIC (03/23/2017) 03/23/2017 [facility] Scanned SCANNING Final Resu lt * COLONOSCOPY GENERIC (03/23/2017) 03/23/2017 [facility] Scanned SCANNING Final Resu lt documented in this encounter Visit Diagnoses Not on filedocumented in this encounter Additional Health Concerns Infection Onset Date Last Indicated Resolved Time COVID-19 Rule Out 03/16/2022 03/16/2022 03/17/2022 5:53 AM PROGRAMMER ANALYST HEALTH IT documented as of this encounter Care Teams Economic Analyst Relationship Specialty Start Date End Date Bianca Aggarwal FNP [address] [place] [address] PCP - General Nurse Practitioner Family 05/20/20 documented as of this encounter
--- OUTSIDE RECORDS SUMMARY | 2024-04-04 19:44 | XMS_ITS | Encounter Summary ---
Author Organization [facility] Address [facility] [place] [address] [place] [address] Care Team Providers Care Payment Processor Name Role Phone Bianca Aggarwal Primary Care Provider [phone] Reason for Referral * Consultation (Routine) - Closed Specialty Diagnoses / Procedures Referred By Janice vergara Referred To Contact UROLOGY Diagnoses OAB (overactive bladder) Bianca Aggarwal FNP [address] [place] [address] Phone: tel: fax: [facility] [address] [facility], [address] [place] [address] Phone: tel: fax: Referral ID Status Reason Start Date Expiration Date V isits Requested Visits Authorized [id number] Closed Specialty Services 05/26/2020 06/27/2021 1 1 ET PROTECTION SPECIALIST Reason for Visit * Reason Comments Physical ESTABLISH CARE Encounter Details Date Type Department Care Team (Late st Contact Info) Description 05/20/2020 2:00 PM TARGET PROTECTION SPECIALIST Office Visit [facility] Family [facility] Internal Medicine - [place] [address] [place] [address] Bianca Aggarwal FNP [address] [place], [place] [phone] Physical (ESTABLISH CARE) Social History Tobacco Use Types Packs/Day Years [...] on file Legal Sex Female 1:23 PM TARGET PROTECTION SPECIALIST Gender Identity Not on file Sexual Orientation Not on file COVID-19 Exposure Response Date Recorded In the last month, have you been in contact with someone who was confirmed or suspected to have Coronavirus / COVID-19? No / Unsure 05/20/2020 1:51 PM TARGET PROTECTION SPECIALIST documented as of this encounter Last Filed Vital Signs Vital Sign Reading Time Taken Comments Blood Pressure 168/80 05/20/2020 3:24 PM TARGET PROTECTION SPECIALIST Pulse 68 05/20/2020 2:33 PM TARGET PROTECTION SPECIALIST Temperature 36.5 ??C (97.7 ??F) 05/20/2020 2:33 PM CS T Respiratory Rate 16 05/20/2020 2:33 PM TARGET PROTECTION SPECIALIST Oxygen Saturation 98% 05/20/2020 2:33 PM TARGET PROTECTION SPECIALIST Inhaled Oxygen Concentration - - Weight 99.8 kg (220 lb) 05/20/2020 2:33 PM TARGET PROTECTION SPECIALIST Height 170.2 cm (5' 7 ) 05/20/2020 2:33 PM TARGET PROTECTION SPECIALIST Body Mass Index 34.46 05/20/2020 2:33 PM TARGET PROTECTION SPECIALIST documented in this encounter Patient Instructions * Patient Instructions* ONDINA Pope - 05/20/2020 2:00 PM TARGET PROTECTION SPECIALIST - take medications as directed and prescribed - maintain a heart healthy diet and daily physical activity - call or return for any questions or concerns - f/u at least yearly or sooner if needed ET PROTECTION SPECIALIST documented in this encounter Progress Notes * ONDINA Pope - 05/20/2020 2:00 PM CSTSummary: establish care Office Progress Note Reason for Visit: Physical (ESTABLISH CARE) History of Present Illness: Minnie presents to the office, as a new patient, to establish primary care with me. She reports a medical history that includes overactive bladder, RA, IBS, gastric ulcer, osteopenia,hyperlipidemia, GERD, menopause, vertigo, osteoarthritis, hypertension, A-fib, vitamin d deficiencyand obesity. She reports that she sees specialists for all her chronic issues and use to see her PCP just every year or every other year. She also sees an eyeglass inspector for a chronic eye disease. 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 She denies any issues with domestic violence or abuse in her life and feels safe at home. RA- sees a risk control specialist and is given steroids and anti inflammatory medications. She also reportsthat she has gotten labs done within the last 4 months. GI- she has IBS, been treated for gastric ulcer and GERD and is UTD with her colonoscopy. She reports that she is not due for another colonoscopy until 2026. We will send for these records. Screening mammogram is reportedly UTD and it was done at [facility], as well as her pap and bone density is also UTD. She sees Dr Santos for these screenings. She does have a history of osteopenia and is on fosamax weekly for this issue. She is a . A-fib - history of cardiac ablation- she is taking eliquis for this issue. She also has hypertension and is taking lisinopril without any reported issues. She says that cardiology follows these issues and also her hyperlipidemia for which she is taking atorvastatin without any issues. OAB- her PCP use to give her samples of the myrbetriq because this was expensive but we discussed this was not an option. I advised that she might need a urology consult for evaluation of this issue since she has been on this for a while and she is agreeable to this plan. Her last eye exam was about one year ago. Last dental exam was about 6 months ago. Her last TDAP was 7 years ago. She is declining the influenza vaccine today. ROS: Review of Systems Constitutional: Negative for [...] File Prior to Visit Medication Sig ??? furosemide 20 MG tablet Take 20 mg by mouth daily. ??? magnesium oxide 400 (241.3 Mg) MG tablet Take 400 mg by mouth daily. ??? mirabegron ER (MYRBETRIQ) 50 MG 24 hr tablet Take 50 mg by mouth daily. ??? Multiple Vitamins-Minerals (PRESERVISION AREDS) capsule Take 1 capsule by mouth daily. No current facility-administered medications [...] resource strain: Not on file ??? Food insecurity Worry: Not on file Inability: Not on file ??? Transportation needs Medical: Not on file Non-medical: Not on file Tobacco Use ??? Smoking status: Never Smoker ??? Smokeless tobacco: Never Used Substance and Sexual Activity ??? Alcohol use: Never Frequency: Never ??? Drug use: Never ??? Sexual activity: Not on file Lifestyle ??? Physical activity Days per week: Not on file Minutes per session: Not on file ??? Stress: Not on file Relationships ??? Social connections Talks on phone: Not on file Gets together: Not on file Attends orthodox service: Not on file Active member of club or organization: Not on file Attends meetings of clubs or organizations: Not on file Relationship status: Not on file ??? Intimate partner violence Fear of current or ex partner: Not on file Emotionally abused: Not on file Physically abused: Not on file Forced sexual activity: Not on file Other Topics Concern ??? Not on file Social History Narrative ??? Not on file Family History: Family History Problem Relation Name [...] EOM and lids are normal. Neck: Trachea normal, normal range of motion, full passive range of motion without pain and phonation normal. Neck supple. Normal carotid pulses present. No spinous process tenderness and no musculartenderness present. Carotid bruit is not present. No [...] She has no rales. Abdominal: Soft. Normal appearance and bowel sounds are normal. She exhibits no distension, no abdominal bruit, no pulsatile midline mass and no mass. There is no abdominal tenderness. There is no rebound and no guarding. Musculoskeletal: Normal range of motion. General: No tenderness or deformity. Lymphadenopathy: She has no cervical adenopathy. Neurological: She is alert and oriented to person, place, and time. She has normal strength and normal reflexes. No cranial nerve deficit or sensory deficit. Coordination and gait normal. Skin: Skin is warm, dry and intact. No rash noted. No erythema. Psychiatric: She has a normal mood and affect. Her speech is normal and behavior is normal. Judgment and thought content normal. Cognition and memory are normal. Nursing note and vitals reviewed. Filed Vitals: 05/20/20 1433 05/20/20 1524 BP: (!) 175/80 (!) 168/80 Pulse: 68 Resp: 16 Temp: 97.7 ??F (36.5 ??C) SpO2: 98% Weight: 99.8 kg (220 lb) Height: 5' 7 (1.702 m) Diagnoses/Impression: 1. Encounter for medical examination to establish care 2. Atrial tachycardia (CMS/HCC) 3. 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 Essential (primary) hypertension 5. Hypercholesterolemia 6. jail (current) use of anticoagulants 7. Rheumatoid arthritis involving multiple sites with positive rheumatoid factor (CMS/HCC) 8. Generalized OA 9. OAB (overactive bladder) Ambulatory referral to Urology ( [place]) 10. Osteopenia, unspecified location 11. Gastroesophageal reflux disease, unspecified whether esophagitis present 12. Class 1 obesity due to excess calories with serious comorbidity and body mass index (BMI) of 34.0 to 34.9 in adult 13. History of atrial fibrillation 14. Hypokalemia 15. Left atrial enlargement Recommendations and Plan: 1. Encounter for medical examination to establish care 2. Atrial tachycardia (CMS/HCC) 3. 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 Essential (primary) hypertension 5. Hypercholesterolemia 6. jail (current) use of anticoagulants 7. Rheumatoid arthritis involving multiple sites with positive rheumatoid factor (CMS/HCC) 8. Generalized OA 9. OAB (overactive bladder) - Ambulatory referral to Urology ([facility] [place]) 10. Osteopenia, unspecified location 11. Gastroesophageal reflux disease, unspecified whether esophagitis present 12. Class 1 obesity due to excess calories with serious comorbidity and body mass index (BMI) of 34.0 to 34.9 in adult 13. History of atrial fibrillation 14. Hypokalemia 15. Left atrial enlargement -we discussed continuing her current medications as directed and previously prescribed - we will send for her records and test results, so that we can see if we need to order any other screening exams or routine labs. -urology referral placed - she was advised to maintain follow up with her specialists as scheduled and with me, at least yearly, sooner if needed. Orders Placed This Encounter ??? Ambulatory referral to Urology ([facility] [place]) ??? magnesium oxide 400 (241.3 Mg) MG tablet ??? furosemide 20 MG tablet ??? mirabegron ER (MYRBETRIQ) 50 MG 24 hr tablet ??? Multiple Vitamins-Minerals (PRESERVISION AREDS) capsule Cannot display discharge medications since this is not an admission. I spent 40 minutes today reviewing the patient's medical record, obtaining history, performing an exam and counseling and educating the patient/family/caregiver. PCP: ONDINA ATKINS 05/26/2020 Cosigned by Eros Parra MD at 06/02/2020 4:37 PM TARGET PROTECTION SPECIALIST ET PROTECTION SPECIALIST ET PROTECTION SPECIALIST documented in this encounter Plan of Treatment Upcoming Encounters Date Type Department Care Team (Late st Contact Info) Description 09/06/2024 10:40 AM CDT Office Visit [facility] - [address] [address] Kilzer, Bianca, MOT[employer] CH[employer]OR[address] [address] Scheduled Referrals Name Type Priority Associated Diagnoses Orde r Schedule Ambulatory referral to Urology ([facility] [place]) Referral Routine OAB (overactive bladder) Ordered: 05/26/2020 documented as of this encounter Visit Diagnoses Diagnosis Encounter for medical examination to establish care- Primary Atrial tachycardia ([facility]) Other specified cardiac dysrhythmias 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 Essential (primary) hypertension Unspecified essential hypertension Hypercholesterolemia Pure hypercholesterolemia jail (current) use of anticoagulants Long-term (current) use of anticoagulants Rheumatoid arthritis involving multiple sites with positive rheumatoid factor ([facility]) Generalized OA Generalized osteoarthrosis, unspecified site OAB (overactive bladder) Hypertonicity of bladder Osteopenia, unspecified location Gastroesophageal reflux disease, unspecified whether esophagitis present Class 1 obesity due to excess calories with serious comorbidity and body mass index (BMI) of 34.0 to 34.9 in adult History of atrial fibrillation Personal history of other diseases of circulatory system Hypokalemia Hypopotassemia Left atrial enlargement Cardiomegaly documented in this encounter Additional Health Concerns Assessment Noted Time PHQ-9 Depression Total Score: 3 05/20/19 21 3:25 PM TARGET PROTECTION SPECIALIST documented as of this encounter Care Teams Payment Processor Relationship Specialty Start Date End Date Bianca Aggarwal FNP [address] [place] [id number] PCP - General Nurse Practitioner Family 05/20/20 documented as of this encounter
--- OUTSIDE RECORDS SUMMARY | 2024-04-04 19:48 | XMS_ITS | Encounter Summary ---
Author Organization [facility] Healthcare Address [address] [place] [address] Care Team Providers Care Automobile Upholstery Trim Installer Name Role Phone Bianca Aggarwal NP Primary Care Provider [phone] Bianca Aggarwal NP Unavailable [phone] Reason for Visit * Auth/Cert (Routine) Specialty Diagnoses / Procedures Referred By Janice vergara Referred To Contact Diagnoses Cardiac pacemaker in situ Cardiac pacemaker in situ [Z95.0] Procedures ID RPSG PREV IMPLTED PM/DFB R ATR/R VENTR ELECTRODE REPOSITION PERMANENT PACEMAKER LEAD/ 60 min Referral ID Status Reason Start Date Expiration Date Visits Re quested Visits Authorized [id number] 1 1 Encounter Details Date Type Department Care Team (Late st Contact Info) Description 04/25/2023 8:00 AM [facility] - 04/25/2023 10:00 AM [facility] Surgery [facility] Operating Room [address] [place] [address] Kenan Thakkar MD [address] [place] [id number] REPOSITION PERMANENT PACEMAKER LEAD Surgery Details Date/Time Status Location OR Service Patient Class Case Class Case Type Trauma Case? 04/25/2023 8:00 AM Posted OPERATING ROOM OR Cardiovascular Outpatient Elective Panel 1 Procedure LRB Anes Op Region Wound Class Comments REPOSITION PERMANENT PACEMAK ER LEAD Left General Chest Class I - Clean biotronic Surgeon Surgeon Role Service Panel Kenan Thakkar MD Primary Cardiovascular 1 documented in this encounter Social History Tobacco Use Types Packs/Day Years Used Date Smoking Tobacco: Never Tobacco Cessation:Counseling Given: Not Answered Personal Safety Answer Date Recorded Have you ever been in or are you currently in a harmful physical or emotional relationship or is someone making you feel afraid or unsafe? Denies 04/25/2023 Comments No Sex and Gender Information Value Date Recorded Sex Assigned at Not on file Legal Sex Female 8:41 AM SATELLITE INSTALLATION TECHNICIAN Gender Identity Not on file Sexual Orientation Not on file documented as of this encounter Last Filed Vital Signs Vital Sign Reading Time Taken Comments Blood Pressure 131/65 04/25/2023 10:00 AM SATELLITE INSTALLATION TECHNICIAN Pulse 70 04/25/2023 10:00 AM SATELLITE INSTALLATION TECHNICIAN Temperature 36.1 ??C (97 ??F) 04/25/2023 9:48 AM SATELLITE INSTALLATION TECHNICIAN Respiratory Rate 14 04/25/2023 10:00 AM SATELLITE INSTALLATION TECHNICIAN Oxygen Saturation 94% 04/25/2023 10:00 AM SATELLITE INSTALLATION TECHNICIAN Inhaled Oxygen Concentration - - Weight 102.1 kg (225 lb) 04/25/2023 7:38 AM SATELLITE INSTALLATION TECHNICIAN Height 171.5 cm (5' 7.5 ) 04/25/2023 7:38 AM SATELLITE INSTALLATION TECHNICIAN Body Mass Index 34.72 04/25/2023 7:38 AM SATELLITE INSTALLATION TECHNICIAN documented in this encounter Discharge Instructions * Discharge Instructions* Kenan Thakkar MD - 04/25/2023 9:51 AM SATELLITE INSTALLATION TECHNICIAN Do not drive for 2 weeks Do not raise left arm, do not loft more than 5 pounds for two weeks Keep bandage on and surgival area dry for one week. LLITE INSTALLATION TECHNICIAN * Attachments The following attachments cannot be sent through Care Everywhere. * General Anesthesia (Discharge Care) (Iraqi) * Pacemaker (Discharge Care) (Iraqi) documented in this encounter Medications at Time of Discharge alendronate (FOSAMAX) 35 mg tabletIndications: Post-Menopausal Osteoporosis Prevention Take 1 tablet (35 mg total) by mouth every 7 days Take in the morning with a full glass of water, on an empty stomach, and do not take anything else by mouth or lie down for the next 30 min. amLODIPine (NORVASC) 10 mg tablet Take 1 tablet (10 mg total) by mouth daily 03/31/2023 apixaban (ELIQUIS) 5 mg tablet 1 tablet (5 mg total) 2 (two) times a day atorvastatin (LIPITOR) 80 mg tablet Take 1 tablet (80 mg total) by mouth daily celecoxib (CeleBREX) 200 mg capsule Take 1 capsule (200 mg total) by mouth 2 (two) times a day cephalexin (KEFLEX) 500 mg capsule Take 1 capsule (500 mg total) by mouth 4 (four) times a day 64 capsule 04/25/2023 estradioL (ESTRACE) 0.5 mg tablet Take 3 tablets (1.5 mg total) by mouth daily fludrocortisone 0.1 mg tablet Take 1 tablet (0.1 mg total) by mouth daily furosemide (LASIX) 20 mg tablet Take 1 tablet (20 mg total) by mouth daily hyoscyamine (LEVSIN) 0.125 mg/mL solution Take by mouth every 4 (four) hours as needed for bladder spasms lisinopriL (PRINIVIL,ZESTRIL) 40 mg tablet Take 10 mg by mouth daily magnesium (MAGTAB) 84 mg extended release tablet Take 1 tablet (84 mg total) by mouth daily meclizine (ANTIVERT) 25 mg tablet Take 1 tablet (25 mg total) by mouth daily potassium chloride (KLOR-CON) 20 mEq packet Take 1 packet (20 mEq total) by mouth daily sotaloL (BETAPACE) 80 mg tablet Take 0.5 tablets (40 mg total) by mouth 2 (two) times a day spironolactone (ALDACTONE) 25 mg tablet Take 1 tablet (25 mg total) by mouth daily traMADoL (ULTRAM) 50 mg tablet Take 1 tablet (50 mg total) by mouth every 6 (six) hours vibegron 75 mg tablet Take 75 mg by mouth daily vitamins A,C,H-pfbs-trnoii 7,160-113-100 gdcc-za-jrqh tablet,delayed release (DR/EC) Take by mouth 2 (two) times a day documented as of this encounter Ordered Prescriptions Prescription Sig Dispense Quantity Refills Last Filled Start Date End Date cephalexin (KEFLEX) 500 mg capsule Take 1 capsule (500 mg total) by mouth 4 (four) times a day 64 capsule 04/25/2023 documented in this encounter Discharge Disposition Disposition Code Departure Means Destination Comment s Discharge to home or self care documented in this encounter H&P Notes * Kenan Thakkar MD - 04/25/2023 8:02 AM CST Cardiology History and Physical- [facility] Patient's Primary Care Physician: Bianca Aggarwal NP Name: Brenna Chatterjee Age: 68 y.o. Race: Sex: female Chief Complaint/History of Present Illness Patient present for lead reposition. Please refer to full H and P scanned in the media section Past Medical History: Diagnosis Date A-fib (CMS/HCC) (HCC) Diverticulitis Hyperlipidemia Hyperlipidemia Hypertension Motion sickness Osteoporosis PONV (postoperative nausea and vomiting) Sleep apnea VT (ventricular tachycardia) (HCC) Past Surgical History: Procedure Laterality Date ABLATION CHOLECYSTECTOMY FIBULA FRACTURE SURGERY FOOT SURGERY HYSTERECTOMY INSERT / REPLACE / REMOVE PACEMAKER KNEE ARTHROPLASTY Family History Problem Relation Age of Onset No Known Problems Mother No Known Problems Father Heart disease Other Blood Clot Other Social History Tobacco Use Smoking status: Never Smokeless tobacco: None Substance and Sexual Activity Drug use: None Sexual activity: None Alcohol Use: Not on file Medications Prior to Admission Medication Sig Dispense Refill Last Dose alendronate (FOSAMAX) 35 mg tablet Take 1 tablet (35 mg total) by mouth every 7 days Take in the morning with a full glass of water, on an empty stomach, and do not take anything else by mouth or liedown for the next 30 min. Past Week amLODIPine (NORVASC) 10 mg tablet Take 1 tablet (10 mg total) by mouth daily 04/24/2023 atorvastatin (LIPITOR) 80 mg tablet Take 1 tablet (80 mg total) by mouth daily 04/24/2023 celecoxib (CeleBREX) 200 mg capsule Take 1 capsule (200 mg total) by mouth 2 (two) times a day 04/24/2023 estradioL (ESTRACE) 0.5 mg tablet Take 1 tablet (0.5 mg total) by mouth daily 04/24/2023 fludrocortisone 0.1 mg tablet Take 1 tablet (0.1 mg total) by mouth daily 04/24/2023 furosemide (LASIX) 20 mg tablet Take 1 tablet (20 mg total) by mouth daily 04/24/2023 lisinopriL (PRINIVIL,ZESTRIL) 40 mg tablet Take 1 tablet (40 mg total) by mouth daily 04/24/2023 magnesium (MAGTAB) 84 mg extended release tablet Take 1 tablet (84 mg total) by mouth daily 04/24/2023 meclizine (ANTIVERT) 25 mg tablet Take 1 tablet (25 mg total) by mouth daily 04/24/2023 potassium chloride (KLOR-CON) 20 mEq packet Take 1 packet (20 mEq total) by mouth daily 04/24/2023 sotaloL (BETAPACE) 80 mg tablet Take 0.5 tablets (40 mg total) by mouth 2 (two) times a day 04/25/2023 at 0500 spironolactone (ALDACTONE) 25 mg tablet Take 1 tablet (25 mg total) by mouth daily 04/24/2023 traMADoL (ULTRAM) 50 mg tablet Take 1 tablet (50 mg total) by mouth every 6 (six) hours 04/24/2023 vibegron 75 mg tablet Take 75 mg by mouth daily 04/24/2023 vitamins A,C,G-evqk-sgglyi 7,160-113-100 waba-jl-bjvp tablet,delayed release (DR/EC) Take by mouth 2 (two) times a day 04/24/2023 apixaban (ELIQUIS) 5 mg tablet 1 tablet (5 mg total) 2 (two) times a day 04/20/2023 hyoscyamine (LEVSIN) 0.125 mg/mL solution Take by mouth every 4 (four) hours as needed for bladder spasms Unknown Allergies Allergen Reactions Flecainide Palpitations Iodine Itching and Blisters Latex Itching and Blisters Morphine Nausea & Vomiting MEDICATIONS FOR CURRENT ENCOUNTER: SCHEDULED MEDICATIONS: Scheduled Medications Medication Dose Route Frequency balanced salt soln no.2 irrig. (BSS) intraocular solution - ADS Override Pull ceFAZolin (ANCEF) 1 gram/10 mL in sterile water (premix) - ADS Override Pull ceFAZolin (ANCEF) 1 gram/10 mL in sterile water (premix) 2,000 mg 2,000 mg intravenous Once scopolamine 1 mg over 3 days patch 72 hour - ADS Override Pull CONTINUOUS MEDICATIONS: Continuous Medications Medication Dose Last Rate Lactated Ringer's (LR) infusion 30 mL/hr 30 mL/hr (04/25/23 0740) PRN MEDICATIONS: PRN Medications Medication Dose Route Frequency Last Admin balanced salt soln no.2 irrig. (BSS) intraocular solution - ADS Override Pull Carrier Fluids for Secondary Infusion - 0.9% Sodium Chloride 30 mL intravenous PRN ceFAZolin (ANCEF) 1 gram/10 mL in sterile water (premix) - ADS Override Pull scopolamine 1 mg over 3 days patch 72 hour - ADS Override Pull sodium chloride 0.9% flush 0.5-20 mL 0.5-20 mL intra-catheter PRN Review of Systems 11 system review was obtained all pertinent positives and negatives have been listed in the HPI. Exam Patient Vitals for the past 24 hrs: BP Temp Pulse Resp SpO2 Height Weight 04/25/23 0738 -- -- -- -- -- 171.5 cm (5' 7.5 ) 102.1 kg (225 lb) 04/25/23 0719 151/80 36.5 ??C (97.7 ??F) 66 20 97 % -- -- alser Lungs: clear Heart: RSR Abdomen: Extremities: no edema Data No results found for: TROPONINT Assessment and Plan PMR mal function Plan : lead reposition I anticipate greater than 2 midnights stay due to management of the issues noted above. Thank you for allowing us to participate in the care of this patient. We will continue to follow. If you have any questions, please don't hesitate to call. Kenan Thakkar MD [facility] 04/25/2023 8:02 AM CC: LLITE INSTALLATION TECHNICIAN documented in this encounter Miscellaneous Notes * Brief Op Note - Kenan Thakkar MD - 04/25/2023 8:41 AM CST Operative Progress Note Surgical Team: Surgeon(s) and Role: * Kenan Thakkar MD - Primary Anesthesiologist: Marlon Orlando MD Anesthesiologist Flight Readiness Technician: Jeremías Meehan AA Blueprinter: Ruma Laboy RN Fitness Sales Consultant: Shannon Gamboa RT Scrub: Joan Pantoja [facility] ELECTROPLATING TECHNICIAN: Sandy Winston RN DATE OF SURGERY : 04/25/2023 Preoperative Diagnosis: Pre-op Diagnosis * Cardiac pacemaker in situ [Z95.0] Postoperative Diagnosis: Post-op Diagnosis * Cardiac pacemaker in situ [Z95.0] Procedure(s): Procedure(s) (LRB): REPOSITION PERMANENT PACEMAKER LEAD (Left) Estimated Blood Loss: No blood loss documented. Specimens: No specimen collected in procedure Implants: Nothing was implanted during the procedure Blood/Blood Products Transfused: 5 mls Complications: None Condition on Discharge from the operating room was stable Kenan Thakkar MD Date: 04/25/2023 Time: 9:43 AM LLITE INSTALLATION TECHNICIAN * Op Note - Kenan Thakkar MD - 04/25/2023 12:00 AM CST BRIEF CLINICAL HISTORY A 68-year-old woman who was born on 1955. She rescinded the permanent pacemaker placed. Interrogation revealed that there was no capture of the right ventricular lead and that she is presentingfor pacemaker revision. She is aware of the risks, benefits, and alternatives to procedure, and wished to proceed. PROCEDURE Informed consent was obtained. The patient was brought to the operation room in post absortive state, sedation per the anesthesia department. The chest was prepped and draped in the usual sterile manner. Lidocaine 1% plain was for local anesthesia. We opened the incision and removed the pacemaker generator. We took meticulous care to stop any bleeding. We disconnected the leads from the generatorand we released the leads within the pocket. Now, under fluoroscopic guidance, we retrieved the screw on the ventricular lead and repositioned it into the right ventricular septum and we found pacingand sensing to be acceptable added some slack to the atrial lead. The leads were re-sutured with silk sutures. Connected to the generator, which was sutured to the pocket and then we closed in multiple layers with 3-0 Vicryl for subcutaneous tissues and 4-0 Vicryl for intracuticular suturing. Bandage was placed and left arm was placed in a sling. She tolerated the procedure well. No complications. DATA The leads are Wowboardronik Solia S53, MRI compatible, serial #[id number]. The ventricular lead is Solia S60, MRI compatible, Biotronik [id number]. The pacemaker generator is Biotronik Edora 8 DR-T, serial #[id number]. The parameters are: In the atrium, the sensing was 3.8 millivolts, pacing threshold 1.1 V at 0.4 milliseconds, the impedance was 507 ohms. In the ventricle, the settings are R-waves paced 14.3 millivolt, pacing threshold 1.2 V at 1.0 millisecond with impedance of 1404. CONCLUSION Successful repositioning of pacemaker leads as described above. Thank you very much for allowing me to participate in the care of your patient. If I can be of further assistance, please do not hesitate to contact me. Job ID/Internal Job ID: [id number] LLITE INSTALLATION TECHNICIAN documented in this encounter Plan of Treatment Not on file documented as of this encounter Procedures Procedure Name Priority Date/Time Associated Diagnosis Comments XR CHEST 1 VIEW IP Routine 04/25/2023 10:31 AM SATELLITE INSTALLATION TECHNICIAN FL FLUOROSCOPY < 1 HOUR IP Routine 04/25/2023 9:37 AM SATELLITE INSTALLATION TECHNICIAN REPOSITION PERMANENT PACEMAKER LEAD 04/25/2023 8:09 AM SATELLITE INSTALLATION TECHNICIAN Cardiac pacemaker in situ documented in this encounter Results * X-ray chest 1 view (Portable) (04/25/2023 10:31 AM SATELLITE INSTALLATION TECHNICIAN) Anatomical Region Laterality Modality Body, Chest N/A Computed Radiogr aphy 04/25/2023 11:2 0 AM SATELLITE INSTALLATION TECHNICIAN Impressions 04/25/2023 11:20 AM SATELLITE INSTALLATION TECHNICIAN No active pulmonary disease. Electronically signed by: Yan Mackay M.D. Narrative 04/25/2023 11:20 AM SATELLITE INSTALLATION TECHNICIAN EXAMINATION: XR CHEST 1 VIEW DATE: 04/25/2023 10:20 AM HISTORY: Pacemaker, no status change do not raise left arm, call if abnormal FINDINGS: Left subclavian dual lead transvenous pacemaker is present. ??There is no infiltrate, effusion or pneumothorax. ??Heart size and pulmonary vascularity are normal. Procedure Note Yan Mackay MD - 04/25/2023 EXAMINATION: XR CHEST 1 VIEW DATE: 04/25/2023 10:20 AM HISTORY: Pacemaker, no status change do not raise left arm, call if abnormal FINDINGS: Left subclavian dual lead transvenous pacemaker is present. There is no infiltrate, effusion or pneumothorax. Heart size and pulmonary vascularity are normal. IMPRESSION: No active pulmonary disease. Electronically signed by: Yan Mackay M.D. Kenan Thakkar MD IMG XR PROCEDURES Final Result * FL Fluoroscopy < 1 Hour (04/25/2023 9:37 AM SATELLITE INSTALLATION TECHNICIAN) Narrative RAD_PACS_ - 04/25/2023 9:38 AM SATELLITE INSTALLATION TECHNICIAN The images from this study are not interpreted by Radiology. ??Please refer to the physician's procedure / OR operative note. Kenan Thakkar MD IMG FLUOROSCOPY PROCEDURES Final Result Performing Organization Address City/State/[facility] Co de Phone Number RAD_PACS_ documented in this encounter Visit Diagnoses Diagnosis Cardiac pacemaker in situ- Primary Cardiac pacemaker in situ documented in this encounter Admitting Diagnoses Diagnosis Cardiac pacemaker in situ documented in this encounter Administered Medications Inactive Administered Medications - up to 3 most recent administrations Medication Order MAR Action Action Date Dose Rate Site acetaminophen (TYLENOL) 500 mg tablet - ADS Override Pull Starting on Tue04/25/23 at 0734, For 1 dose, Created by cabinet override acetaminophen (TYLENOL) tablet 1,000 mg 1,000 mg, oral, Once, On Tue04/25/23 at 0700, For 1 dose, Pre-Op, Indications: Pre-Emptive AnalgesiaIndications:Pre-Emptive Analgesia Given 04/25/2023 7:41 AM SATELLITE INSTALLATION TECHNICIAN 1,000 mg celecoxib (CeleBREX) 200 mg capsule - ADS Override Pull Starting on Tue04/25/23 at 0734, For 1 dose, Created by cabinet override celecoxib (CeleBREX) capsule 400 mg 400 mg, oral, Once, On Tue04/25/23 at 0700, For 1 dose, Pre-Op, Indications: Pre-Emptive AnalgesiaIndications:Pre-Emptive Analgesia Given 04/25/2023 7:41 AM SATELLITE INSTALLATION TECHNICIAN 400 mg fentaNYL (SUBLIMAZE) 50 mcg/mL preservative free injection - ADS Override Pull Starting on Tue04/25/23 at 1002, For 1 dose, Created by cabinet override fentaNYL (SUBLIMAZE) preservative free injection 50 mcg 50 mcg, intravenous, Every 10 min PRN, 1st line for pain, Starting on Tue04/25/23 at 1001, Phase I, Notify Anesthesiologist if total PACU dose reaches 100 mcg and pain score 5/10 or more., Indications: PainIndications:Pain Given 04/25/2023 10:09 AM SATELLITE INSTALLATION TECHNICIAN 50 mcg Lactated Ringer's (LR) infusion - ADS Override Pull Starting on Tue04/25/23 at 0734, For 1 dose, Created by cabinet override Lactated Ringer's (LR) infusion 30 mL/hr, intravenous, Continuous, Starting on Tue04/25/23 at 0700, Pre-Op Restarted 04/25/2023 9:46 AM SATELLITE INSTALLATION TECHNICIAN Rate/Dose Verify 04/25/2023 8:16 AM SATELLITE INSTALLATION TECHNICIAN 30 mL/h r New Bag 04/25/2023 7:40 AM SATELLITE INSTALLATION TECHNICIAN 30 mL/hr 30 mL/hr lidocaine PF (XYLOCAINE) 10 mg/mL (1 %) preservative free injection As needed, Starting on Tue04/25/23 at 0851, Intra-Op Given 04/25/2023 8:51 AM SATELLITE INSTALLATION TECHNICIAN 20 mL meperidine (DEMEROL) 25 mg/mL preservative free injection - ADS Override Pull Starting on Tue04/25/23 at 1002, For 1 dose, Created by cabinet override meperidine (DEMEROL) preservative free injection 12.5 mg 12.5 mg, intravenous, Administer over 5 Minutes, Every 10 min PRN, shivering, Starting on Tue04/25/23 at 1001, For 2 doses, Phase I, Max cumulative dose 25 mg., Indications: ShiveringIndications:Shivering Given 04/25/2023 10:18 AM SATELLITE INSTALLATION TECHNICIAN 12.5 mg Given 04/25/2023 10:08 AM SATELLITE INSTALLATION TECHNICIAN 12.5 mg sodium chloride 0.9% infusion Continuous PRN, Starting on Tue04/25/23 at 0851, Intra-Op New Bag 04/25/2023 8:51 AM SATELLITE INSTALLATION TECHNICIAN 1,000 mL/hr 1000 mL/hr traMADoL (ULTRAM) tablet 50 mg 50 mg, oral, Once, On Tue04/25/23 at 1100, For 1 dose, Phase I Given 04/25/2023 10:27 AM SATELLITE INSTALLATION TECHNICIAN 50 mg documented in this encounter Discontinued Medications Medication Sig Discontinue Reason Start Date End Da te omeprazole (PriLOSEC) 40 mg capsule Take 40 mg by mouth daily Therapy completed 04/25/2023 documented as of this encounter Historical Medications * This list may reflect changes made after this encounter. furosemide (LASIX) 20 mg tablet Take 1 tablet (20 mg total) by mouth daily spironolactone (ALDACTONE) 25 mg tablet Take 1 tablet (25 mg total) by mouth daily amLODIPine (NORVASC) 10 mg tablet Take 1 tablet (10 mg total) by mouth daily 03/31/2023 added in this encounter Active and Recently Administered Medications Times are shown in SATELLITE INSTALLATION TECHNICIAN. Scheduled Medication Order 04/23/2023 04/24/2023 04/25/2023 acetaminophen (TYLENOL) tablet 1,000 mg (COMPLETED) 1,000 mg, oral, Once, On Tue04/25/23 at 0700, For 1 dose, Pre-Op, Indications: Pre-Emptive Analgesia 0741 (Given - Provid er: Fanny Singh RN) ceFAZolin (ANCEF) 1 gram/10 mL in sterile water (premix) 2,000 mg (COMPLETED) 2,000 mg, intravenous, at 400 mL/hr, Administer over 3 Minutes, Once, On Tue04/25/23 at 0815, For 1 dose, Pre-Op, Indications: Prophylaxis, Surgical 0832 (Given - Provid er: MECCA Hamlin) celecoxib (CeleBREX) capsule 400 mg (COMPLETED) 400 mg, oral, Once, On Tue04/25/23 at 0700, For 1 dose, Pre-Op, Indications: Pre-Emptive Analgesia 0741 (Given - Provid er: Fanny Singh RN) traMADoL (ULTRAM) tablet 50 mg (COMPLETED) 50 mg, oral, Once, On Tue04/25/23 at 1100, For 1 dose, Phase I 1027 (Given - Provid er: Alanis Vázquez RN) Continuous Medication Order 04/23/2023 04/24/2023 04/25/2023 Lactated Ringer's (LR) infusion 30 mL/hr, intravenous, Continuous, Starting on Tue04/25/23 at 0700, Pre-Op 0740 (New Bag - Prov ider: Fanny Singh RN)0816 (Rate/Dose Verify - Provider: MECCA Hamlin)0945 (Paused - Provider: MECCA Hamlin - Comment: Switch to gravity)0946 (Restarted - Provider: MECCA Hamlin)0948 (Continued from OR - Provider: Alanis Vázquez RN)1027 (Stopped - Provider: Alanis Vázquez RN) PRN Medication Order 04/23/2023 04/24/2023 04/25/2023 fentaNYL (SUBLIMAZE) preservative free injection 50 mcg (CANCELED) 50 mcg, intravenous, Every 10 min PRN, 1st line for pain, Starting on Tue04/25/23 at 1001, Phase I, Notify Anesthesiologist if total PACU dose reaches 100 mcg and pain score 5/10 or more., Indications: Pain 1009 (Given - Provid er: Alanis Vázquez RN) lidocaine PF (XYLOCAINE) 10 mg/mL (1 %) preservative free injection (CANCELED) As needed, Starting on Tue04/25/23 at 0851, Intra-Op 0851 (Given - Provid er: Kenan Thakkar MD) meperidine (DEMEROL) preservative free injection 12.5 mg (COMPLETED) 12.5 mg, intravenous, Administer over 5 Minutes, Every 10 min PRN, shivering, Starting on Tue04/25/23 at 1001, For 2 doses, Phase I, Max cumulative dose 25 mg., Indications: Shivering 1008 (Given - Provid er: Alanis Vázquez RN)1018 (Given - Provider: Alanis Vázquez RN) sodium chloride 0.9% infusion (COMPLETED) Continuous PRN, Starting on Tue04/25/23 at 0851, Intra-Op 0851 (New Bag - Prov ider: Kenan Thakkar MD) documented in this encounter Orders Medications Ordered That Franco ht Not Have Been Administered Count Last Ordered Date First Ordered Date albuterol 2.5 mg /3 mL (0.08 3 %) nebulizer solution 2.5 mg 1 04/25/2023 balanced salt soln no.2 irri g. (BSS) intraocular solution - ADS Override Pull 04/25/2023 Carrier Fluids for Secondary Infusion - 0.9% Sodium Chloride 1 04/25/2023 ceFAZolin (ANCEF) 1 gram/10 mL in sterile water (premix) - ADS Override Pull 1 04/25/2023 ceFAZolin (ANCEF) 1 gram/10 mL in sterile water (premix) 2,000 mg 1 04/25/2023 fentaNYL (SUBLIMAZE) preserv ative free injection 50 mcg 1 04/25/2023 naloxone (NARCAN) 0.4 mg/mL injection 0.04-0.4 mg 1 04/25/2023 scopolamine 1 mg over 3 days patch 72 hour - ADS Override Pull 1 04/25/2023 sodium chloride 0.9% flush 0.5-20 mL 1 11/2023 traMADoL (ULTRAM) 50 mg tabl et - ADS Override Pull 04/25/2023 Discharge Count Last Ordered Date First Orde red Date DISCHARGE PATIENT 1 04/25/2023 documented in this encounter Care Teams Automobile Upholstery Trim Installer Relationship Specialty Start Date End Date Bianca Aggarwal NP [address] [place] [id number] PCP - General Nurse Practitioner 10/03/20 Bianca Aggarwal NP [address] [place] [id number] 10/03/20 documented as of this encounter
--- OUTSIDE RECORDS SUMMARY | 2024-04-04 19:48 | XMS_ITS | Encounter Summary ---
Author Organization [facility] Address [address] [place] [address] Care Team Providers Care Industrial Engineering Director Name Role Phone Unavailable Primary Care Provider Unavailabl e Encounter Details Date Type Department Care Team (Late st Contact Info) Description 04/03/2021 2:30 PM ACCOUNT ASSISTANT Rapid Evaluation [place] [facility] [address] [address] Social History Tobacco Use Types Packs/Day Years Used Date Smoking Tobacco: Never Assessed Comments Unknown Sex and Gender Information Value Date Recorded Sex Assigned at Not on file Legal Sex Female 2:03 PM ACCOUNT ASSISTANT Gender Identity Not on file Sexual Orientation Not on file documented as of this encounter Plan of Treatment Not on file documented as of this encounter Visit Diagnoses Not on filedocumented in this encounter
--- OUTSIDE RECORDS SUMMARY | 2024-04-04 19:48 | XMS_ITS | Encounter Summary ---
Author Organization [facility] Healthcare Address [address] [place] [address] Care Team Providers Care Utility Tender Carding Name Role Phone Bianca Aggarwal NP Primary Care Provider [phone] Bianca Aggarwal NP Unavailable [phone] Encounter Details Date Type Department Care Team (Late st Contact Info) Description 04/20/2023 Orders Only [facility] Operating Room [address] [place] [address] [place] Thakkar [place] [id number] [place] [id number] Cardiac pacemaker in situ (Primary Dx) Social History Tobacco Use Types Packs/Day Years Used Date Smoking Tobacco: Never Personal Safety Answer Date Recorded Have you ever been in or are you currently in a harmful physical or emotional relationship or is someone making you feel afraid or unsafe? 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 Gender Identity Not on file Sexual Orientation Not on file documented as of this encounter Plan of Treatment Not on file documented as of this encounter Visit Diagnoses Diagnosis Cardiac pacemaker in situ- Primary documented in this encounter Orders Case Request Count Last Ordered Date First Orde red Date CASE REQUEST OPERATING ROOM 1 04/20/2023 documented in this encounter Care Teams Utility Tender Carding Relationship Specialty Start Date End Date Bianca Aggarwal NP [address] [place] [address] PCP - General Nurse Practitioner 10/03/20 Bianca Aggarwal NP [address] [place] [address] 10/03/20 documented as of this encounter
--- OUTSIDE RECORDS SUMMARY | 2024-04-04 19:48 | XMS_ITS | Encounter Summary ---
Author Organization [facility] Healthcare Address [address] [place] [address] Care Team Providers Care Impregnator And Drier Name Role Phone Bianca Aggarwal NP Primary Care Provider [phone] Bianca Aggarwal NP Unavailable [phone] Reason for Visit * Auth/Cert (Routine) Specialty Diagnoses / Procedures Referred By Janice vergara Referred To Contact Diagnoses Cardiac pacemaker in situ Cardiac pacemaker in situ [Z95.0] Procedures [place] [facility] PREV IMPLTED PM/DFB R ATR/R VENTR ELECTRODE REPOSITION PERMANENT PACEMAKER LEAD/ 60 min Referral ID Status Reason Start Date Expiration Date Visits Re quested Visits Authorized [id number] 1 1 Encounter Details Date Type Department Care Team (Late st Contact Info) Description 04/25/2023 8:16 AM HARDWOOD FLOOR FINISHER Anesthesia Event [facility] Operating Room [address] [place] [address] [place] [address] [facility] [place] [address] [place] [id number] [address] Anesthesia Record Procedure Summary Procedure Name Responsible Anesthesiologist Anesthesia Start Time Anesthesia Stop Time REPOSITION PERMANENT PACEMAKER LEAD (Left: Chest) Marlon Orlando MD 04/25/23 0816 04/25/23 0946 Events Date Time Event Comment 04/25/2023 0731 0809 In Room 0816 An Start 0816 An Start Data 0816 Start Supplemental O2 0826 An Induction The patient was reevaluated immediately before moderate or deep sedation use and before anesthesia induction. 0829 Anesthesia Ready 0841 Proc Start 0841 Incision Start 0854 Quick Note Surgeon aware o f pressure drop and phenylephrine drip started. 0940 Proc Fin 0946 Out of Room 0946 Handoff to RN I completed my handoff to the receiving nurse during which we: 1. Patient identified 2. Responsible provider identified 3. Pertinent medical history reviewed 4. Procedure type and surgical course discussed 5. Intraoperative anesthetic management and any significant issues discussed 6. Expectations and concerns for postop period discussed 7. Questions solicited from receiving nurse 8. Patient disposition at the time of handoff: No value filed. 0946 an stop data 0946 An Stop Meds Name Total midazolam 2 mg propofol 40 mg propofol 621.28 mg ceFAZolin (ANCEF) 1 gram/10 mL in steril e water (premix) 2,000 mg 2,000 mg phenylephrine (ROSI-SYNEPHRIN E) 25,000 mcg in sodium chloride 0.9% 250 mL (100 mcg/mL) infusion 0.7 mg Lactated Ringer's (LR) infusion 200 mL * Agents Name O2 N2O Air * Blood No blood administrations on file. Lines, Drains, and Airways Type Details Placement Removal Peripheral IV Placement Date: 04/25/23; Placement Time: 0745; Catheter Size: 20 G; Orientation: Anterior, Left, Proximal; Location: Forearm; Site Prep: Chlorhexidine; Technique: Anatomical landmarks; Inserted by: telma godinez; Insertion Attempts: 1; Patient Tolerance: Tolerated well; Removal Date: 04/25/23; Removal Time: 1200 04/25/23 0745 by Fanny Singh RN 04/25/23 1200 by Nazia Jiménez RN RETIRED Surgical Site 04/25/23; 0851; Margaret ft; Chest; 03/20/24 (Retired LDA, Removed/Completed by Legend of the Elf with LDA Utility); 1213 (Retired LDA, Removed/Completed by [employer] Elf with LDA Utility) 04/25/23 0851 by Ruma Laboy RN 03/20/24 1213 by Discharge Provider, Automatic documented in this encounter Social History Tobacco [...] on file Legal Sex Female 8:41 AM HARDWOOD FLOOR FINISHER Gender Identity Not on file Sexual Orientation Not on file documented as of this encounter OR Notes * Anesthesia Postprocedure Evaluation - Rehan Burch MD - 04/25/2023 10:41 AM CST Patient: Brenna Chatterjee Procedure Summary Date: 04/25/23 Room / Location: OPERATING ROOM 1 / OPERATING ROOM Anesthesia Start: 815 Anesthesia Stop: 945 Procedure: REPOSITION PERMANENT PACEMAKER LEAD (Left: Chest) Diagnosis: Cardiac pacemaker in situ (Cardiac pacemaker in situ [Z95.0]) Providers: Kenan Thakkar MD Responsible Provider: Marlon Orlando MD Anesthesia Type: MAC ASA Status: 3 Anesthesia Type: MAC Last vitals BP 119/76 Pulse 66 Temp 36.1 ??C (97 ??F) (Temporal) Resp 11 SpO2 95% Anesthesia Post Evaluation Patient location during evaluation: PACU Patient participation: complete - patient participated Level of consciousness: fully awake Pain score: 0 Pain management: adequate Airway patency: adequate Evidence of recall: no Cardiovascular status: acceptable Respiratory status: acceptable Hydration status: acceptable Pt is: normothermic Nausea/Vomiting status: none No notable events documented. WOOD FLOOR FINISHER * Anesthesia Preprocedure Evaluation - Marlon Orlando MD - 04/21/2023 8:11 AM CST Images from the original note were not included. Anesthesia Evaluation Brenna Chatterjee is a 68 y.o. female Procedure(s): REPOSITION PERMANENT PACEMAKER LEAD/ 60 min Pre-Op Diagnosis Codes: * Cardiac pacemaker in situ [Z95.0] HISTORY Past Medical History Information obtained from: patient and chart. Neurological Neuro/Psych system: negative Cardiovascular + Atrial fibrillation/flutter - Current Rhythm: atrial fibrillation. + Pacemaker/ICD - Hepatic / Heme Hepatic/Heme system: negative Gastrointestinal GI system: negative Renal / Renal/ system: negative Musculoskeletal/Pain Musculoskeletal/Pain system: negative Endocrine / Other Endocrine/Other system: negative Patient Active Problem List Diagnosis Date Noted Cardiac pacemaker in situ 04/20/2023 Swelling, limb 10/16/2020 Atrial fibrillation ([facility] ([facility]) 04/04/2013 Palpitations 04/04/2013 Past Medical History: Diagnosis Date A-fib ([facility]) ([facility]) Diverticulitis Hyperlipidemia Osteoporosis [place] (ventricular tachycardia) ([facility]) ([facility]) Past Surgical History: Procedure Laterality Date CHOLECYSTECTOMY OB History No obstetric history on file. Allergies Allergen Reactions Flecainide Other (See comments) and Palpitations Morphine Taking? Last Dose Start Date End Date Provider alendronate (FOSAMAX) 35 mg tablet -- -- -- ProviderMargaret MD apixaban (ELIQUIS) 5 mg tablet -- -- -- Provider, MD Margaret atorvastatin (LIPITOR) 80 mg tablet -- -- -- ProviderMargaret MD celecoxib (CeleBREX) 200 mg capsule -- -- -- Provider, MD Margaret estradioL (ESTRACE) 0.5 mg tablet -- -- -- Provider, MD Margaret fludrocortisone 0.1 mg tablet -- -- -- ProviderMargaret MD hyoscyamine (LEVSIN) 0.125 mg/mL solution -- -- -- ProviderMargaret MD lisinopriL (PRINIVIL,ZESTRIL) 40 mg tablet -- -- -- Margaret Thacker MD magnesium (MAGTAB) 84 mg extended release tablet -- -- -- Provider, MD Margaret meclizine (ANTIVERT) 25 mg tablet -- -- -- Provider, MD Margaret omeprazole (PriLOSEC) 40 mg capsule -- -- -- Provider, MD Margaret potassium chloride (KLOR-CON) 20 mEq packet -- -- -- Provider, MD Margaret sotaloL (BETAPACE) 80 mg tablet -- -- -- Margaret Thacker MD traMADoL (ULTRAM) 50 mg tablet -- -- -- Margaret Thacker MD vibegron 75 mg tablet -- -- -- Margaret Thacker MD vitamins A,C,L-wizx-ovljxv 7,160-113-100 avdv-tt-ypmj tablet,delayed release (DR/EC) -- -- -- Provider, MD Margaret No current facility-administered medications for this encounter. Current Outpatient Medications: alendronate (FOSAMAX) 35 mg tablet apixaban (ELIQUIS) 5 mg tablet atorvastatin (LIPITOR) 80 mg tablet celecoxib (CeleBREX) 200 mg capsule estradioL (ESTRACE) 0.5 mg tablet fludrocortisone 0.1 mg tablet hyoscyamine (LEVSIN) 0.125 mg/mL solution lisinopriL (PRINIVIL,ZESTRIL) 40 mg tablet magnesium (MAGTAB) 84 mg extended release tablet meclizine (ANTIVERT) 25 mg tablet omeprazole (PriLOSEC) 40 mg capsule potassium chloride (KLOR-CON) 20 mEq packet sotaloL (BETAPACE) 80 mg tablet traMADoL (ULTRAM) 50 mg tablet vibegron 75 mg tablet vitamins A,C,D-yqin-zndlys 7,160-113-100 ubhr-fb-leyv tablet,delayed release (DR/EC) Social History Tobacco Use Smoking Status Never Smokeless Tobacco Not on file Alcohol Use: Not on file Substance and Sexual Activity Drug Use Not on file Family History Problem Relation Age of Onset No Known Problems Mother No Known Problems Father Heart disease Other Blood Clot Other There were no vitals filed for this visit. PT: No results found for requested labs within last 30 days. INR: No results found for requested labs within last 30 days. APTT: No results found for requested labs within last 30 days. Hgb A1C: No results found for requested labs within last 30 days. CBC RBC: No results found for requested labs within last 30 days. RDW: No results found for requested labs within last 30 days. MCHC: No results found for requested labs within last 30 days. MCH: No results found for requested labs within last 30 days. MCV: No results found for requested labs within last 30 days. Hct: No results found for requested labs within last 30 days. Hgb: No results found for requested labs within last 30 days. WBC: No results found for requested labs within last 30 days. MPV: No results found for requested labs within last 30 days. Platelets: No results found for requested labs within last 30 days. RDW CV: No results found for requested labs within last 30 days. RDW Sd: No results found for requested labs within last 30 days. BMP Glucose: No results found for requested labs within last 30 days. Calcium: No results found for requested labs within last 30 days. Sodium: No results found for requested labs within last 30 days. Potassium: No results found for requested labs within last 30 days. CO2: No results found for requested labs within last 30 days. Chloride: No results found for requested labs within last 30 days. BUN: No results found for requested labs within last 30 days. Creatinine: No results found for requested labs within last 30 days. DOS Physical Exam Medical history, medications, and allergies reviewed. Attestation: This PAT evaluation 04/25/2023. Airway Exam: Mallampati: II Cervical ROM: FROM TM distance: >4 Cardiovascular Exam: Rate: regular Rhythm: regular Pulmonary Exam: LCTA, bilat EENT Exam: trachea midline Dental Exam: Appears intact Current state: Patient's current state is cooperative. Anesthesia Plan ASA 3 My patient is approved for the Anesthesia Controlled Medication protocol when under care of a TUMBLING AND ROLLING SUPERVISOR Planned anesthesia: MAC Induction: Induction: intravenous. Postoperative Plan: No plan for postoperative opioid use. No postoperative mechanical ventilation intended. No trial extubation planned. Informed Consent: Discussed plan with AA, attending and TUMBLING AND ROLLING SUPERVISOR. Anesthesia plan and risks discussed with patient. Consent and Attending signature: I and/or my designee have discussed the anesthesia plan, benefits, possible alternatives, parental presence at time of induction (if indicated), and clinically relevant risks that may include dental injury, unintentional awareness, and/or other complications. The patient and/or parent/legal guardian understand, and agree to proceed. All questions answered. WOOD FLOOR FINISHER WOOD FLOOR FINISHER documented in this encounter Plan of Treatment Not on file documented as of this encounter Visit Diagnoses Not on filedocumented in this encounter Administered Medications Inactive Administered Medications - up to 3 most recent administrations Medication Order MAR Action Action Date Dose Rate Site ceFAZolin (ANCEF) 1 gram/10 mL in sterile water (premix) 2,000 mg 2,000 mg, intravenous, at 400 mL/hr, Administer over 3 Minutes, Once, On Tue04/25/23 at 0815, For 1 dose, Pre-Op, Indications: Prophylaxis, SurgicalIndications:Prophylaxis, Surgical Given 04/25/2023 8:32 AM HARDWOOD FLOOR FINISHER 2,000 mg Lactated Ringer's (LR) infusion 30 mL/hr, intravenous, Continuous, Starting on Tue04/25/23 at 0700, Pre-Op Restarted 04/25/2023 9:46 AM HARDWOOD FLOOR FINISHER Rate/Dose Verify 04/25/2023 8:16 AM HARDWOOD FLOOR FINISHER 30 mL/h r New Bag 04/25/2023 7:40 AM HARDWOOD FLOOR FINISHER 30 mL/hr 30 mL/hr midazolam (VERSED) 1 mg/mL preservative free injection intravenous, Administer over 2 Minutes, As needed, Starting on Tue04/25/23 at 0810, Anesthesia Intra-op Given 04/25/2023 8:10 AM HARDWOOD FLOOR FINISHER 2 mg phenylephrine (ROSI-SYNEPHRINE) 25,000 mcg in sodium chloride 0.9% 250 mL (100 mcg/mL) infusion intravenous, Continuous PRN, Starting on Tue04/25/23 at 0854, Anesthesia Intra-op Rate/Dose Change 04/25/2023 9:20 AM HARDWOOD FLOOR FINISHER 0.1 mcg/kg/min 6.126 mL/hr New Bag 04/25/2023 8:54 AM HARDWOOD FLOOR FINISHER 0.2 mcg/kg/min 12.252 mL /hr propofoL (DIPRIVAN) 10 mg/mL IV intravenous, Continuous PRN, Starting on Tue04/25/23 at 0828, Anesthesia Intra-op Rate/Dose Change 04/25/2023 8:42 AM HARDWOOD FLOOR FINISHER 95 mcg/kg/min 58.197 mL/hr New Bag 04/25/2023 8:28 AM HARDWOOD FLOOR FINISHER 75 mcg/kg/min 45.945 mL/ hr propofoL (DIPRIVAN) 10 mg/mL IV intravenous, As needed, Starting on Tue04/25/23 at 0841, Anesthesia Intra-op New Bag 04/25/2023 8:41 AM HARDWOOD FLOOR FINISHER 40 mg documented in this encounter Care Teams Impregnator And Drier Relationship Specialty Start Date End Date Bianca Aggarwal NP [address] [place] [address] PCP - General Nurse Practitioner 10/03/20 Bianca Aggarwal NP [address] [place] [address] 10/03/20 documented as of this encounter
--- OUTSIDE RECORDS SUMMARY | 2024-04-04 19:48 | XMS_ITS | Clinical Summary ---
Author Organization [address] Address [address] [place] [address] Care Team Providers Care Mirror Framer Name Role Phone Bianca Aggarwal NP Primary Care Provider [phone] Bianca Aggarwal NP Unavailable [phone] Allergies Active Allergy Reactions Criticality Noted Date Comments Flecainide Palpitations High 04/17/2013 Iodine Itching,Blisters High 04/21/2023 Latex Itching,Blisters High 04/21/2023 Morphine Nausea & Vomiting Low Medications hyoscyamine (LEVSIN) 0.125 mg/mL solution Take by mouth every 4 (four) hours as needed for bladder spasms Active vibegron 75 mg tablet Take 75 mg by mouth daily Active traMADoL (ULTRAM) 50 mg tablet Take 1 tablet (50 mg total) by mouth every 6 (six) hours Active estradioL (ESTRACE) 0.5 mg tablet Take 3 tablets (1.5 mg total) by mouth daily Active meclizine (ANTIVERT) 25 mg tablet Take 1 tablet (25 mg total) by mouth daily Active potassium chloride (KLOR-CON) 20 mEq packet Take 1 packet (20 mEq total) by mouth daily Active magnesium (MAGTAB) 84 mg extended release tablet Take 1 tablet (84 mg total) by mouth daily Active apixaban (ELIQUIS) 5 mg tablet 1 tablet (5 mg total) 2 (two) times a day Active sotaloL (BETAPACE) 80 mg tablet Take 0.5 tablets (40 mg total) by mouth 2 (two) times a day Active celecoxib (CeleBREX) 200 mg capsule Take 1 capsule (200 mg total) by mouth 2 (two) times a day Active fludrocortisone 0.1 mg tablet Take 1 tablet (0.1 mg total) by mouth daily Active atorvastatin (LIPITOR) 80 mg tablet Take 1 tablet (80 mg total) by mouth daily Active lisinopriL (PRINIVIL,ZESTRIL ) 40 mg tablet Take 10 mg by mouth daily Active vitamins A,C,T-fmsz-ujvosy 7,160-113-100 vhuy-xz-czpv tablet,delayed release (DR/EC) Take by mouth 2 (two) times a day Active alendronate (FOSAMAX) 35 mg tabletIndications :Post-Menopausal Osteoporosis Prevention Take 1 tablet (35 mg total) by mouth every 7 days Take in the morning with a full glass of water, on an empty stomach, and do not take anything else by mouth or lie down for the next 30 min. Active amLODIPine (NORVASC) 10 mg tablet Take 1 tablet (10 mg total) by mouth daily 3 Active spironolactone (ALDACTONE) 25 mg tablet Take 1 tablet (25 mg total) by mouth daily Active furosemide (LASIX) 20 mg tablet Take 1 tablet (20 mg total) by mouth daily Active cephalexin (KEFLEX) 500 mg capsule Take 1 capsule (500 mg total) by mouth 4 (four) times a day 64 capsule 4 Active Active Problems Problem Noted Date Diagnosed Date Greater trochanteric bursitis of left hip 2023 Cardiac pacemaker in situ 04/20/2023 Swelling, limb 10/16/2020 Atrial fibrillation (CMS/HCC) 04/04/2013 Palpitations 04/04/2013 Surgical History Surgery Date Site/Laterality Comments CHOLECYSTECTOMY INSERT / REPLACE / REMOVE PACEMAKER KNEE ARTHROPLASTY FOOT SURGERY FIBULA FRACTURE SURGERY ABLATION HYSTERECTOMY Medical History Medical History Date Comments A-fib (CMS/HCC) ([facility]) Diverticulitis Osteoporosis Hyperlipidemia [place] (ventricular tachycardia) ([facility]) Sleep apnea PONV (postoperative nausea and vomiting) Motion sickness Hypertension Hyperlipidemia Family History Medical History Relation Name Comments No Known Problems Father No Known Problems Mother Blood Clot Other Heart disease Other Relation Name Status Comments Father Mother Other Social History Tobacco Use Types Packs/Day [...] on file Legal Sex Female 8:41 AM MACHINE SPREADER Gender Identity Not on file Sexual Orientation Not on file Obstetrics History Last Filed Vital Signs Vital Sign Reading Time Taken Comments Blood Pressure 119/76 04/25/2023 10:30 AM MACHINE SPREADER Pulse 65 04/25/2023 10:40 AM MACHINE SPREADER Temperature 36.1 ??C (97 ??F) 04/25/2023 9:48 AM MACHINE SPREADER Respiratory Rate 11 04/25/2023 10:40 AM MACHINE SPREADER Oxygen Saturation 90% 04/25/2023 10:40 AM MACHINE SPREADER Inhaled Oxygen Concentration - - Weight 99.8 kg (220 lb) 01/03/2024 10:02 AM CDT Height 170.2 cm (5' 7 ) 01/03/2024 10:02 AM CDT Body Mass Index 34.46 01/03/2024 10:02 AM CDT Plan of Treatment Health Maintenance Due Date Last Done Comments Breast Cancer Screening-Mammogram 1955 Colon Cancer Screening-Colonoscopy 1955 Depression Screening 1955 Hepatitis C Screening 1956 Osteoporosis Screening-Bone Density Scan 1956 DTaP/Tdap/Td Vaccine (1 - Tdap) 1967 Hepatitis B Screening 1974 Zoster Vaccine (1 of 2) 2006 Well Visit 65+ 2021 Covid-19 Vaccine (3 - 2023-2 5 season) 2023 07/06/2020, 06/15/2020 Influenza Vaccine (#1) 2023 , 01/27/2022, 02/02/2015, Additional history exists Fall Risk Assessment 04/25/2024 04/25/2023 Pneumococcal vaccine 65+ Completed 02/14/2023 Insurance MEDICARE MEDICARE MEDICARE MEDICARE [facility] Care Teams Mirror Framer Relationship Specialty Start Date End Date Bianca Aggarwal NP [address] [place] [address] PCP - General Nurse Practitioner 10/03/20 Bianca Aggarwal NP [address] [place] [address] 10/03/20
--- OUTSIDE RECORDS SUMMARY | 2024-04-04 19:48 | XMS_ITS | Clinical Summary ---
Author Organization [facility] Care Team Providers Care Drier Feeder Name Role Phone Unavailable Primary Care Provider Unavailabl e Social History Tobacco Use Types Packs/Day Years Used Date Smoking Tobacco: Never Assessed Comments Unknown Sex and Gender Information Value Date Recorded Sex Assigned at Not on file Legal Sex Female 2:03 PM SIEBEL SOLUTION ARCHITECT Gender Identity Not on file Sexual Orientation Not on file Plan of Treatment Health Maintenance Due Date Last Done Comments DEXA Bone Density 1955 Hepatitis C Virus (HCV) Screening 1955 TdaP Immunization 1955 Colonoscopy 2001 Colorectal Cancer Screening 2001 Cologuard 2006 Immunochemical Fecal Occult Blood 2006 Mammogram 2006 Zoster Immunization (1 of 2) 2006 Pneumococcal Immunization (6 5+ years) (1 of 1 - PCV) 2021 SARS-COV-2 Immunization ( - 2022-24 season) 2022 Influenza Immunization (Se[place] on Ended) 2023 Hepatitis B Immunization Aged Out No longer eligible based on patient's age to complete this topic Meningococcal Immunization (ACWY) Aged Out No longer eligible based on patient's age to complete this topic Rotavirus Immunization Aged Out No lo nger eligible based on patient's age to complete this topic
--- OUTSIDE RECORDS SUMMARY | 2024-04-04 19:48 | XMS_ITS | Referral Summary ---
Author Organization [address] Address [address] [place] [address] Care Team Providers Care Catcher Plug Name Role Phone Bianca Aggarwal NP Primary Care Provider [phone] Bianca Aggarwal NP Unavailable [phone] Allergies Active Allergy Reactions Criticality Noted Date [...] 10 mg by mouth daily Active vitamins A,C,A-oicv-vsfpuu 7,160-113-100 vtrr-kk-mftf tablet,delayed release (DR/EC) Take by mouth 2 [...] 10/16/2020 Atrial fibrillation (CMS/HCC) 04/04/2013 Palpitations 04/04/2013 Social History Tobacco Use Types Packs/Day Years [...] on file Legal Sex Female 8:41 AM INSURANCE CLAIMS CLERK Gender Identity Not on file Sexual Orientation Not on file Last Filed Vital Signs Vital Sign Reading Time Taken Comments Blood Pressure 119/76 04/25/2023 10:30 AM INSURANCE CLAIMS CLERK Pulse 65 04/25/2023 10:40 AM INSURANCE CLAIMS CLERK Temperature 36.1 ??C (97 ??F) 04/25/2023 9:48 AM INSURANCE CLAIMS CLERK Respiratory Rate 11 04/25/2023 10:40 AM INSURANCE CLAIMS CLERK Oxygen Saturation 90% 04/25/2023 10:40 AM INSURANCE CLAIMS CLERK Inhaled Oxygen Concentration - - Weight 99.8 kg (220 lb) 01/03/2024 10:02 AM CDT Height 170.2 cm (5' 7 ) 01/03/2024 10:02 AM CDT Body Mass Index 34.46 01/03/2024 10:02 AM CDT Plan of Treatment Not on file Insurance MEDICARE MEDICARE MEDICARE MEDICARE [facility] Care Teams Catcher Plug Relationship Specialty Start Date End Date Bianca Aggarwal NP [address] [place] [id number] PCP - General Nurse Practitioner 10/03/20 Bianca Aggarwal NP [address] [place] [phone] 10/03/20
--- OUTSIDE RECORDS SUMMARY | 2024-04-04 19:48 | XMS_ITS | Encounter Summary ---
Author Organization [facility] Address [address] [place] [address] Phone Care Team Providers Care Lime Vat Tender Name Role Phone Bianca Aggarwal NP Primary Care Provider [phone] Bianca Aggarwal NP Unavailable [phone] Reason for Visit * Reason Comments Audiometric Evaluation * Consultation (Routine) - Closed Specialty Diagnoses / Procedures Referred By Contruben vergara Referred To Contact Audiology Diagnoses Sensorineural hearing loss (SNHL) of both ears Jorge Faith MD Phone: tel: fax: [facility] (All Locations) Referral ID Status Reason Start Date Expiration Date V isits Requested Visits Authorized [id number] Closed Specialty Services Required 12/09/2020 01/08/2022 1 1 Encounter Details Date Type Department Care Team (Latest Contact Info) Description 12/10/2020 3:00 PM CDT Procedure visit [facility] [address] [facility] 11[address] [place] [address] [place] [address] Minnie Hu Au.D. [address] [place] [address] Peripheral vertigo, unspecified laterality (Primary Dx); Sensorineural hearing loss, bilateral; Sensorineural hearing loss (SNHL) of both ears Social History Tobacco Use Types Packs/Day Years Used Date Smoking Tobacco: Never Comments No Sex and Gender Information Value Date Recorded Sex Assigned at Not on file Legal Sex Female 8:41 AM TABLEMAN Gender Identity Not on file Sexual Orientation Not on file documented as of this encounter Procedure Notes * Minnie Hu Au.D. - 12/10/2020 3:00 PM CDT Procedures Audiologic Evaluation Julio Ramsey Patient: Brenna Chatterjee Date of : 1955 Date of Service: 12/10/2020 Referred by: Jorge Faith M.D. Primary Complaint(s): ?? Ms. Chatterjee reports a 20 year history of episodic vertigo/dizziness/light headed feeling. ?? Symptoms can occur while sitting or walking. ?? Symptoms have been more severe this summer. ?? She takes Meclizine every day and still has symptoms. ?? Her mother had Meniere's disease ?? She does not notice hearing loss and does not have tinnitus. ?? She does not have ear pain or ear pressure and has not had ear surgery Objective: See: Comprehensive audiometric evaluation and immittance audiometry ASSESSMENT: Pure tone audiometry was performed and revealed: Right: WNL from 250-4000 Hz sloping to slight loss at 6000 Hz rising to WNL at 8000 Hz Left: WNL from 250-3000 Hz sloping to slight loss from 7066-9690 Hz Speech Recognition Threshold (SRT) is in agreement with pure-tone average (TACKER ELASTIC BAND) and reveals: Right: normal ability to receive speech Left: normal ability to receive speech Word recognition testing was performed at Most Intelligible Level (MIL) using recorded NU-6 lists of a male talker: Right: normal ability to recognize speech. Left: normal ability to recognize speech. Tympanometry was performed and revealed: Right: Ear Canal Volume: normal Static Compliance: normal Middle ear pressure: normal Left: Ear Canal Volume: normal Static Compliance: normal Middle ear pressure: normal Acoustic Reflex Thresholds Right Contra: WNL at 500, 1000 and 2000 Hz Right Ipsi: WNL at 500, 1000 and 2000 Hz Left Contra: WNL at 500, 1000 and 2000 Hz Left Ipsi: WNL at 500, 1000 and 2000 Hz Reflex Decay Right: CNT at 500 Hz, Negative at 1000 Hz Left: Negative at 500 and 1000 Hz PLAN: ?? Follow up with Dr. Faith ?? Retest 12 months/PRN ?? Hearing protection in noise ?? Counseled patient on the results of the audiologic examination and answered any questions that arose ?? Forwarded a copy of the audiogram and report to Julio Pedraza documented in this encounter Plan of Treatment Not on file documented as of this encounter Procedures Procedure Name Priority Date/Time Associated Diagnosis Comments AUDBASE RESULTS 12/10/2020 2:47 PM CDT documented in this encounter Results * AUDBASE RESULTS (12/10/2020 2:47 PM CDT) Provider Scanning AUDIOLOGY SERVICES ORDERABLES Final Result documented in this encounter Visit Diagnoses Diagnosis Peripheral vertigo, unspecified laterality- Primary Sensorineural hearing loss, bilateral Sensorineural hearing loss (SNHL) of both ears documented in this encounter Orders Outpatient Referral Count Last Ordered Date Fir st Ordered Date AMB REFERRAL TO AUDIOLOGY (ADULT) 1 021 documented in this encounter Care Teams Lime Vat Tender Relationship Specialty Start Date End Date Bianca Aggarwal NP [facility] [place] [address] PCP - General Nurse Practitioner 10/03/20 Bianca Aggarwal NP [address] [place] [address] 10/03/20 documented as of this encounter
--- OUTSIDE RECORDS SUMMARY | 2024-04-04 19:48 | XMS_ITS | Encounter Summary ---
Author Organization [facility] Address [address] [place] [address] Care Team Providers Care Manager Quantitative Name Role Phone Bianca Aggarwal NP Primary Care Provider [phone] Bianca Aggarwal NP Unavailable [phone] Reason for Visit * Auth/Cert (Routine) Specialty Diagnoses / Procedures Referred By Janice vergara Referred To Contact Diagnoses Cardiac pacemaker in situ Cardiac pacemaker in situ [Z95.0] Procedures [place] RPSG PREV IMPLTED PM/DFB R ATR/R VENTR ELECTRODE REPOSITION PERMANENT PACEMAKER LEAD/ 60 min Referral ID Status Reason Start Date Expiration Date Visits Re quested Visits Authorized [id number] 1 1 Encounter Details Date Type Department Care Team (Latest Contact Info) Description 04/25/2023 6:03 AM INSOLVENCY PRACTITIONER - 04/25/2023 12:10 PM INSOLVENCY PRACTITIONER Hospital Encounter [facility] [address] [address] [place] [address] Ken[place] [id number] [place] [address] Discharge Disposition: Discharge to home or self care Social History Tobacco Use Types Packs/Day Years [...] on file Legal Sex Female 8:41 AM INSOLVENCY PRACTITIONER Gender Identity Not on file Sexual Orientation Not on file documented as of this encounter Last Filed Vital Signs Vital Sign Reading Time Taken Comments Blood Pressure 119/76 04/25/2023 10:30 AM INSOLVENCY PRACTITIONER Pulse 65 04/25/2023 10:40 AM INSOLVENCY PRACTITIONER Temperature 36.1 ??C (97 ??F) 04/25/2023 9:48 AM INSOLVENCY PRACTITIONER Respiratory Rate 11 04/25/2023 10:40 AM INSOLVENCY PRACTITIONER Oxygen Saturation 90% 04/25/2023 10:40 AM INSOLVENCY PRACTITIONER Inhaled Oxygen Concentration - - Weight 102.1 kg (225 lb) 04/25/2023 7:38 AM INSOLVENCY PRACTITIONER Height 171.5 cm (5' 7.5 ) 04/25/2023 7:38 AM INSOLVENCY PRACTITIONER Body Mass Index 34.72 04/25/2023 7:38 AM INSOLVENCY PRACTITIONER documented in this encounter Discharge Instructions * Discharge Instructions* Kenan Thakkar MD - 04/25/2023 9:51 AM INSOLVENCY PRACTITIONER Do not drive for 2 weeks Do not raise left arm, do not loft more than 5 pounds for two weeks Keep bandage on and surgival area dry for one week. LVENCY PRACTITIONER * Attachments The following attachments cannot be sent through Care Everywhere. * General Anesthesia (Discharge Care) (Greenlandic) * Pacemaker (Discharge Care) (Greenlandic) documented in this encounter Medications at Time [...] Take 75 mg by mouth daily vitamins A,C,R-nhjp-xaphnl 7,160-113-100 ybyl-iv-aorj tablet,delayed release (DR/EC) Take by mouth 2 [...] 8:02 AM CST Cardiology History and Physical- [facility] Patient's Primary Care Physician: Bianca Aggarwal NP Name: Brenna A Cauble Age: 68 y.o. Race: Sex: female Chief [...] 75 mg by mouth daily 04/24/2023 vitamins A,C,B-ghsx-zpctgu 7,160-113-100 pvcs-nl-xljj tablet,delayed release (DR/EC) Take by mouth 2 [...] don't hesitate to call. Kenan Thakkar MD [facility] 04/25/2023 8:02 AM CC: LVENCY PRACTITIONER documented in this encounter Miscellaneous Notes * Brief Op Note - Kenan Thakkar MD - 04/25/2023 8:41 AM CST Operative Progress Note Surgical Team: Surgeon(s) and Role: * Kenan Thakkar MD - Primary Anesthesiologist: Marlon Orlando MD Anesthesiologist Applier: Jeremías Meehan [employer] Professor: Ruma Laboy RN Farm Marketer: Shannon Gamboa RT Scrub: Joan Pantoja ST FURNITURE PACKER: Sandy Winston RN DATE OF SURGERY : [...] Thakkar MD Date: 04/25/2023 Time: 9:43 AM LVENCY PRACTITIONER * Op Note - Kenan Thakkar MD [...] bleeding. We disconnected the leads from the generator and we released the leads within the pocket. Now, under fluoroscopic guidance, we retrieved the screw on the ventricular lead and repositioned it into the right ventricular septum and we found pacing and sensing to be acceptable added some slack [...] well. No complications. DATA The leads are Biotronik Solia S53, MRI compatible, serial #[id number]. The ventricular lead is Solia S60, MRI compatible, Biotronik [id number]. The pacemaker generator is Incentientronik Edora 8 DR-T, serial #[id number]. The parameters are: In the atrium, the [...] to contact me. Job ID/Internal Job ID: [id number] LVENCY PRACTITIONER documented in this encounter Plan of Treatment Not on file documented as of this encounter Procedures Procedure Name Priority Date/Time Associated Diagnosis Comments XR CHEST 1 VIEW IP Routine 04/25/2023 10:31 AM INSOLVENCY PRACTITIONER FL FLUOROSCOPY < 1 HOUR IP Routine 04/25/2023 9:37 AM INSOLVENCY PRACTITIONER REPOSITION PERMANENT PACEMAKER LEAD 04/25/2023 8:09 AM INSOLVENCY PRACTITIONER Cardiac pacemaker in situ documented in this encounter Results * X-ray chest 1 view (Portable) (04/25/2023 10:31 AM INSOLVENCY PRACTITIONER) Anatomical Region Laterality Modality Body, Chest N/A Computed Radiogr aphy 04/25/2023 11:2 0 AM INSOLVENCY PRACTITIONER Impressions 04/25/2023 11:20 AM INSOLVENCY PRACTITIONER No active pulmonary disease. Electronically signed by: Yan Mackay M.D. Narrative 04/25/2023 11:20 AM INSOLVENCY PRACTITIONER EXAMINATION: XR CHEST 1 VIEW DATE: 04/25/2023 [...] active pulmonary disease. Electronically signed by: Yan F Thompson, M.D. Kenan Thakkar MD IMG XR PROCEDURES Final Result * FL Fluoroscopy < 1 Hour (04/25/2023 9:37 AM INSOLVENCY PRACTITIONER) Narrative RAD_PACS_ - 04/25/2023 9:38 AM INSOLVENCY PRACTITIONER The images from this study are not interpreted by Radiology. ??Please refer to the physician's procedure / OR operative note. Kenan Thakkar MD IMG FLUOROSCOPY PROCEDURES Final Result RAD_PACS_ documented in this encounter Visit Diagnoses Diagnosis Cardiac pacemaker in situ- Primary documented in this encounter Admitting Diagnoses Diagnosis [...] Pre-Emptive AnalgesiaIndications:Pre-Emptive Analgesia Given 04/25/2023 7:41 AM INSOLVENCY PRACTITIONER 1,000 mg celecoxib (CeleBREX) 200 mg capsule - ADS Override Pull Starting on Tue04/25/23 at 0734, For 1 dose, Created by cabinet override celecoxib (CeleBREX) capsule 400 mg 400 mg, oral, Once, On Tue04/25/23 at 0700, For 1 dose, Pre-Op, Indications: Pre-Emptive AnalgesiaIndications:Pre-Emptive Analgesia Given 04/25/2023 7:41 AM INSOLVENCY PRACTITIONER 400 mg fentaNYL (SUBLIMAZE) 50 mcg/mL preservative [...] more., Indications: PainIndications:Pain Given 04/25/2023 10:09 AM INSOLVENCY PRACTITIONER 50 mcg Lactated Ringer's (LR) infusion - ADS Override Pull Starting on Tue04/25/23 at 0734, For 1 dose, Created by cabinet override Lactated Ringer's (LR) infusion 30 mL/hr, intravenous, Continuous, Starting on Tue04/25/23 at 0700, Pre-Op Restarted 04/25/2023 9:46 AM INSOLVENCY PRACTITIONER Rate/Dose Verify 04/25/2023 8:16 AM INSOLVENCY PRACTITIONER 30 mL/h r New Bag 04/25/2023 7:40 AM INSOLVENCY PRACTITIONER 30 mL/hr 30 mL/hr meperidine (DEMEROL) 25 mg/mL preservative free injection - ADS Override Pull Starting on Tue04/25/23 at 1002, For 1 dose, Created by cabinet override meperidine (DEMEROL) preservative free injection 12.5 mg 12.5 mg, intravenous, Administer over 5 Minutes, Every 10 min PRN, shivering, Starting on Tue04/25/23 at 1001, For 2 doses, Phase I, Max cumulative dose 25 mg., Indications: ShiveringIndications:Shivering Given 04/25/2023 10:18 AM INSOLVENCY PRACTITIONER 12.5 mg Given 04/25/2023 10:08 AM INSOLVENCY PRACTITIONER 12.5 mg traMADoL (ULTRAM) tablet 50 mg 50 mg, oral, Once, On Tue04/25/23 at 1100, For 1 dose, Phase I Given 04/25/2023 10:27 AM INSOLVENCY PRACTITIONER 50 mg documented in this encounter Discontinued [...] Recently Administered Medications Times are shown in INSOLVENCY PRACTITIONER. Scheduled Medication Order 04/23/2023 04/24/2023 04/25/2023 acetaminophen [...] (0.08 3 %) nebulizer solution 2.5 mg 04/25/2023 balanced salt soln no.2 irri g. (BSS) intraocular solution - ADS Override Pull 04/25/2023 Carrier Fluids for Secondary Infusion - 0.9% Sodium Chloride 04/25/2023 ceFAZolin (ANCEF) 1 gram/10 mL in sterile water (premix) - ADS Override Pull 04/25/2023 ceFAZolin (ANCEF) 1 gram/10 mL in sterile water (premix) 2,000 mg 04/25/2023 fentaNYL (SUBLIMAZE) preserv ative free injection 50 mcg 04/25/2023 lidocaine PF (XYLOCAINE) 10 mg/mL (1 %) preservative free injection 04/25/2023 naloxone (NARCAN) 0.4 mg/mL injection 0.04-0.4 mg 1 04/25/2023 scopolamine 1 mg over 3 days patch 72 hour - ADS Override Pull 1 04/25/2023 sodium chloride 0.9% flush 0.5-20 mL 1 11/2023 sodium chloride 0.9% infusion 1 04/25/2023 traMADoL (ULTRAM) 50 mg tabl et - ADS Override Pull 1 04/25/2023 Discharge Count Last Ordered Date First Orde red Date DISCHARGE PATIENT 1 04/25/2023 documented in this encounter Care Teams Manager Quantitative Relationship Specialty Start Date End Date Bianca Aggarwal NP [address] [place] [id number] PCP - General Nurse Practitioner 10/03/20 Bianca Aggarwal NP [address] [place] [address] 10/03/20 documented as of this encounter
--- OUTSIDE RECORDS SUMMARY | 2024-04-04 19:48 | XMS_ITS | CONTINUITY OF CARE DOCUMENT ---
Author Name jaqueline, jaqueline Address Unknown Organization [facility] Address [address] [address] [place] [address] Phone [phone] Care Team Providers Care Security Installation Technician Name Role Phone Kenan Thakkar MD Unavailable [phone] Kilzer CYLINDER BLOCK MECHANIC-C, Bianca Unavailable [phone] Kilzer CYLINDER BLOCK MECHANIC-C, Bianca Unavailable PROBLEMS Condition Status Date Provider Notes S/P Dual chamb PCM - Biotronik ( MRI Safe) active Rossi Romero Pre-procedural laboratory examination active Jericho Cooley RN ATRIAL FIBRILLATION-S/P EP/ABLATION 02/22/11 active Kenan Thakkar MD CCM enroll HTN essential active Kenan Thakkar MD CCM Enr oll FAMILY HX CARDIOVASCULAR DISEASE-05/27 NUC NEG completed - Kenan Thakkar MD DIZZINESS active Kenan Thakkar MD Obstructive sleep apnea active Kenan Thakkar MD Atrial tachycardia - 12/2010 EPS active Kenan Thakkar MD VENTRICULAR TACHYCARDIA - 2010 HOLTER active Kenan Thakkar MD CHEST PAIN completed - Kenan Thakkar MD 11/27 ECHO EF 60 PASP 33 NUC NEG Hypokalemia active Kenan Thakkar MD Alkaline phosphatase, elevated active Kenan Thakkar MD Medtronic REVEAL completed - Kenan Thakkar MD Obesity active Kenan Thakkar MD Current use of anticoagulants active Kenan Thakkar MD Left atrial enlargement active Kenan Thakkar MD Cardiac murmur active Jeremías Richard Exposure to COVID-19 active Jeremías Marc zuleima Leg pain, left active Jeremías Hilary Leg edema active Bre Robert Venous insufficiency active Bre garner PVD active Kenan Thakkar MD Syncope active Ludin Beck Tachycardia bradycardia syndrome active Ron Alcantar Candidate for surgery completed - Kenan Thakkar MD Hypercholesterolemia active Madhuri Bardales lder ENCOUNTERS Date Type Provider Location Encounter Diag nosis 7 - 8 In-person encounter Office Visit Kenan Thakkar MD [facility] 5 - 6 In-person encounter Office Visit Kenan Thakkar MD [facility] 3 - 4 In-person encounter Office Visit Kenan Thakkar MD [facility] 9 - 9 In-person encounter Office Visit Kenan Thakkar MD [facility] 7 - 7 In-person encounter Office Visit Kenan Thakkar MD [facility] 1 - 1 In-person encounter Office Visit Lucho Bolton MD [facility] Tachycardia bradycardia syndrome 8 - 1 In-person encounter Office Visit Lucho Bolton MD [facility] 4 - 8 In-person encounter Office Visit Lucho Bolton MD [facility] Office 2 - 2 In-person encounter Office Visit Kenan Thakkar MD [facility] Syncope 8 - 0 In-person encounter Office Visit Kenan Thakkar MD [facility] PVD 0 - 0 In-person encounter Office Visit Kenan Thakkar MD [facility] 0 - 0 In-person encounter Office Visit Keann Thakkar MD [facility] Venous insufficiency 2 - 7 In-person encounter Office Visit Kenan Thakkar MD [facility] Leg edema 1 - 1 In-person encounter Office Visit Kenan Thakkar MD [facility] 5 - 2 In-person encounter Office Visit Kenan Thakkar MD [facility] Exposure to COVID-19Leg pain, left 6 - 1 In-person encounter Office Visit Kenan Thakkar MD [facility] Exposure to COVID-19 5 - 5 In-person encounter Office Visit Kenan Thakkar MD [facility] CHEST PAINCardiac murmur 4 - 5 In-person encounter Office Visit Kenan Thakkar MD [facility] Left atrial enlargement 5 - 0 In-person encounter Office Visit Kenan Thakkar MD [facility] Medtronic REVEAL 4 - 4 In-person encounter Office Visit Kenan Thakkar MD [facility] 6 - 4 In-person encounter Office Visit Kenan Thakkar MD [facility] 8 - 9 In-person encounter Office Visit Kenan Thakkar MD [facility] HTN essentialDIZZINESSObstructive sleep apneaAtrial tachycardia - 12/2010 EPSVENTRICULAR TACHYCARDIA - 2010 HOLTERCandidate for surgeryCurrent use of anticoagulants 1 - 6 In-person encounter Office Visit Kenan Thakkar MD [facility] Office 4 - 9 In-person encounter Office Visit Kenan Thakkar MD [facility] Alkaline phosphatase, elevatedMedtronic REVEALObesity 1 - 6 In-person encounter Office Visit Kenan Thakkar MD [facility] Hypercholesterolemia 1 - 3 In-person encounter Office Visit Kenan Thakkar MD [facility] Atrial tachycardia - 12/2010 EPS 9 - 6 In-person encounter Office Visit Kenan Thakkar MD [facility] Hypokalemia 1 - 3 In-person encounter Office Visit Kenan Thakkar MD [facility] 3 - 5 In-person encounter Office Visit Kenan Thakkar MD [facility] 9 - 4 In-person encounter Office Visit Kenan Thakkar MD [facility] 9 - 9 In-person encounter Office Visit Kenan Thakkar MD [facility] 3 - 4 In-person encounter Office Visit Kenan Thakkar MD [facility] Office 3 - 4 In-person encounter Office Visit Kenan Thakkar MD [facility] 1 - 3 In-person encounter Office Visit Kenan Thakkar MD [facility] 0 - 1 In-person encounter Office Visit Kenan Thakkar MD [facility] 0 - 5 In-person encounter Office Visit Lucho Bolton MD [facility] 0 - 0 In-person encounter Office Visit Lucho Bolton MD [facility] CHEST PAIN 8 - 8 In-person encounter Office Visit Lucho Bolton MD [facility] VENTRICULAR TACHYCARDIA - 2010 HOLTER 4 - 4 In-person encounter Office Visit Lucho Bolton MD [facility] 7 - 7 In-person encounter Office Visit Lucho Bolton MD [facility] Atrial tachycardia - 12/2010 EPS 6 - 6 In-person encounter Office Visit Kenan Thakkar MD [facility] Office 8 - 9 In-person encounter Office Visit Kenan Thakkar MD [facility] Office 6 - 3 In-person encounter Office Visit Kenan Thakkar MD [facility] 4 - 4 In-person encounter Office Visit Kenan Thakkar MD [facility] 1 - 9 In-person encounter Office Visit Kenan Thakkar MD [facility] 1 - 1 In-person encounter Office Visit Kenan Thakkar MD [facility] Obstructive sleep apnea 6 - 7 In-person encounter Office Visit Kenan Tahkkar MD [facility] 4 - 5 In-person encounter Office Visit Kenan Thakkar MD [facility] Office DIZZINESS 4 - 3 In-person encounter Office Visit Kenan Thakkar MD [facility] HTN essential 5 - 9 In-person encounter Office Visit Kenan Thakkar MD [facility] Office ATRIAL FIBRILLATION-S/P EP/ABLATION 02/22/11HTN essentialFAMILY HX CARDIOVASCULAR DISEASE-05/27 NUC NEG VITAL SIGNS Date Observation Value Provider Body Mass Index (Ratio) 34.97 kg/m2 Tal Helms blood pressure, cuff size regular Syed [facility] blood pressure, diastolic 78 mm[Hg] [facility] blood pressure, systolic 128 mm[Hg] [facility] pulse rate 66 /min respiratory rate E&M 12 /min Rodrick oxygen saturation, oximetry 98 % weight E&M 230 [lb_av] height E&M 68 [in_i] Rodrick y Body Mass Index (Ratio) 35.58 kg/m2 Tal elizondo Scooter blood pressure, cuff size regular Ja rret blood pressure, diastolic 89 mm[Hg] rret blood pressure, systolic 142 mm[Hg] [facility] ret pulse rate 78 /min Rodrick respiratory rate E&M 12 /min Rodrick oxygen saturation, oximetry 98 % Rodrick weight E&M 234 [lb_av] Rodrick y height E&M 68 [in_i] Rodrick y Body Mass Index (Ratio) 34.51 kg/m2 [facility] weight E&M 227 [lb_av] Rodrick y blood pressure, cuff size regular rret blood pressure, diastolic 87 mm[Hg] rret blood pressure, systolic 121 mm[Hg] [facility] pulse rate 70 /min Rodrick oxygen saturation, oximetry 98 % Rodrick respiratory rate E&M 12 /min Rodrick height E&M 68 [in_i] Rodrick y Body Mass Index (Ratio) 34.66 kg/m2 [facility] blood pressure, cuff size regular rr blood pressure, diastolic 95 mm[Hg] rret blood pressure, systolic 142 mm[Hg] [facility] ret pulse rate 72 /min Rodrick oxygen saturation, oximetry 97 % Rodrick respiratory rate E&M 12 /min Rodrick weight E&M 228 [lb_av] Rodrick y height E&M 68 [in_i] Rodrick Body Mass Index (Ratio) 34.06 kg/m2 Grah am Scooter blood pressure, cuff size regular Ja rret blood pressure, diastolic 86 mm[Hg] Ja rret blood pressure, systolic 135 mm[Hg] Laury elise pulse rate 72 /min Rodrick weight E&M 224 [lb_av] Rodrick oxygen saturation, oximetry 98 % Rordick respiratory rate E&M 12 /min Rodrick height E&M 68 [in_i] Rodrick Body Mass Index (Ratio) 34.51 kg/m2 Ron Alcantar blood pressure, cuff size regular Ke rri Gruenenfelder blood pressure, diastolic 80 mm[Hg] Ke rri Gruenenfelder blood pressure, systolic 122 mm[Hg] Kenji ri Brisaelder oxygen saturation, oximetry 98 % Madhuri Brooke respiratory rate E&M 12 /min Madhuri vazquez pulse rate 71 /min Madhuri Jeffy er weight E&M 227 [lb_av] Madhuri Gruenenfe lder height E&M 68 [in_i] Madhuri Gruenenfe er Body Mass Index (Ratio) 34.66 kg/m2 Ron Alcantar Body Mass Index (Ratio) 34.51 kg/m2 Chandana Bolton MD pulse rate 71 /min Johanna Kwon blood pressure, cuff size large Sh manuel Kwon blood pressure, diastolic 81 mm[Hg] Alice Kwon blood pressure, systolic 130 mm[Hg] Daja Kwon oxygen saturation, oximetry 97 % Johanna Kwon respiratory rate E&M 20 /min Johanna Kwon weight E&M 228 [lb_av] Johanna Kwon height E&M 68 [in_i] Johanna Kwon blood pressure, cuff size regular Ja rret blood pressure, diastolic 82 mm[Hg] Ja rret blood pressure, systolic 139 mm[Hg] Jar ret pulse rate 69 /min Rodrick respiratory rate E&M 12 /min Rodrick oxygen saturation, oximetry 98 % Rodrick weight E&M 227 [lb_av] Rodrick height E&M 68 [in_i] Rodrick Body Mass Index (Ratio) 34.51 kg/m2 Indra read Drake blood pressure, diastolic 72 mm[Hg] Aleshia nkLogic blood pressure, systolic 153 mm[Hg] Gillian kLogic pulse rate 69 /min Rodrick y blood pressure, cuff size regular Ja rret blood pressure, diastolic 72 mm[Hg] Ja rret blood pressure, systolic 153 mm[Hg] Jar ret weight E&M 227 [lb_av] Rodrick y respiratory rate E&M 12 /min Rodrick oxygen saturation, oximetry 99 % Rodrick height E&M 68 [in_i] Rodrick y Body Mass Index (Ratio) 33.45 kg/m2 Charlotte Robert blood pressure, diastolic 83 mm[Hg] St anny Dyer blood pressure, systolic 138 mm[Hg] Chiqui Dyer oxygen saturation, oximetry 99 % Kymberly Dyer pulse rate 69 /min Kymberly Gomez respiratory rate E&M 18 /min Kymberly Yoder bam weight E&M 220 [lb_av] Kymberly Dyer height E&M 68 [in_i] Kymberly Gomez Body Mass Index (Ratio) 33.23 kg/m2 Kenan Thakkar MD oxygen saturation, oximetry 97 % Batsheva [place] respiratory rate E&M 18 /min [facility] pulse rate 70 /min [facility] weight E&M 218.6 [lb_av] [facility] height E&M 68 [in_i] [facility] Body Mass Index (Ratio) 33.45 kg/m2 Charlotte Robert oxygen saturation, oximetry 99 % Chastity Krystyna blood pressure, diastolic 79 mm[Hg] Ch astity Krystyna blood pressure, systolic 146 mm[Hg] Марина stity Krystyna pulse rate 72 /min Chastity Krystyna weight E&M 220 [lb_av] Chastity Krystyna respiratory rate E&M 16 /min Chastit y Krystyna height E&M 68 [in_i] Chastity Krystyna Body Mass Index (Ratio) 33.60 kg/m2 Charlotte Robert blood pressure, diastolic 84 mm[Hg] Ca therine Vikash blood pressure, systolic 157 mm[Hg] Cat herine Vikash oxygen saturation, oximetry 98 % Monse Vikash respiratory rate E&M 14 /min Catheri ne [place] pulse rate 77 /min Monse Vikash weight E&M 221 [lb_av] Monse [place] blood pressure, cuff size regular Ca therine Vikash height E&M 68 [in_i] Monse [place] Body Mass Index (Ratio) 32.23 kg/m2 Charlotte Higginspascual blood pressure, diastolic 60 mm[Hg] Li nkLogic blood pressure, systolic 120 mm[Hg] Gillian kLogic blood pressure, cuff size large Ke rri Gruenenfelder blood pressure, diastolic 60 mm[Hg] Ke rri Gruenenfelder blood pressure, systolic 120 mm[Hg] Kenji ri Rosa [facility] oxygen saturation, oximetry 98 % Madhuri Rosa Melder respiratory rate E&M 16 /min Madhuri [facility] pulse rate 69 /min Madhuri Wheelerpenelope lder weight E&M 212 [lb_av] Madhuri Ledezmae lder height E&M 68 [in_i] Madhuri Brisae lder Body Mass Index (Ratio) 32.69 kg/m2 Jairo atkins Hilary blood pressure, diastolic 76 mm[Hg] Jus rodarte Hilary blood pressure, systolic 131 mm[Hg] Kaitlin kelly Hilary weight E&M 215 [lb_av] Jeremías Lundb erg height E&M 68 [in_i] Jeremías Portalb erg Body Mass Index (Ratio) 34.06 kg/m2 Jairo atkins Hilary blood pressure, diastolic 86 mm[Hg] Cy nthia Donis blood pressure, systolic 148 mm[Hg] Snana thiosvaldo Donis blood pressure, cuff size regular Cy nthia Gagandeep pulse rate 73 /min Marcy Tabby mancuso respiratory rate E&M 16 /min Marcy Donis oxygen saturation, oximetry 98 % Marcy Donis weight E&M 224 [lb_av] Marcy mancuso height E&M 68 [in_i] Marcy mancuso Body Mass Index (Ratio) 33.45 kg/m2 Jairo [facility] blood pressure, diastolic, left arm 95 mm [Hg] [facility] blood pressure, systolic, left arm 164 mm [Hg] [facility] blood pressure, diastolic, right arm 103 mm[Hg] [facility] blood pressure, systolic, right arm 163 m m[Hg] [facility] respiratory rate E&M 16 /min [facility] blood pressure, diastolic 95 mm[Hg] To [facility] blood pressure, systolic 164 mm[Hg] Ton [facility] pulse rate 76 /min [facility] oxygen saturation, oximetry 98 % [facility] weight E&M 220 [lb_av] [facility] height E&M 68 [in_i] [facility] Body Mass Index (Ratio) 33.30 kg/m2 Jairo [facility] blood pressure, diastolic, left arm 82 mm [Hg] Maggi O'Andre blood pressure, systolic, left arm 126 mm [Hg] Maggi O'Andre blood pressure, diastolic, right arm 86 m m[Hg] Maggi O'Andre blood pressure, systolic, right arm 130 m m[Hg] Maggi O'Andre blood pressure, diastolic 82 mm[Hg] Ma rsha O'Andre blood pressure, systolic 126 mm[Hg] Mar sha O'Andre oxygen saturation, oximetry 97 % Maggi O'Andre respiratory rate E&M 16 /min Maggi O'Andre pulse rate 73 /min Maggi O'Andre weight E&M 219 [lb_av] Maggi KelleyAndre height E&M 68 [in_i] Maggi O'Andre Body Mass Index (Ratio) 34.66 kg/m2 Kenan Thakkar MD oxygen saturation, oximetry 98 % [facility] K[facility] respiratory rate E&M 16 /min Chastit y Krystyna blood pressure, diastolic 68 mm[Hg] Ch astity Krystyna blood pressure, systolic 118 mm[Hg] Марина stity Krystyna pulse rate 66 /min Chastity Krystyna weight E&M 228 [lb_av] Chastity Krystyna height E&M 68 [in_i] Chastity Krystyna Body Mass Index (Ratio) 34.21 kg/m2 Jairo Richard blood pressure, diastolic 80 mm[Hg] Da foster [place] blood pressure, systolic 142 mm[Hg] Dac ia Sedrick oxygen saturation, oximetry 96 % Kristie [place] respiratory rate E&M 18 /min Kristie V oss pulse rate 69 /min Kristie Sedrick weight E&M 225 [lb_av] Kenan Thakkar MD height E&M 68 [in_i] [facility] Body Mass Index (Ratio) 34.21 kg/m2 Jairo Richard pulse rate 82 /min [facility], oximetry 98 % Ata Hayward blood pressure, diastolic 98 mm[Hg] Carlos Hayward blood pressure, systolic 150 mm[Hg] Avelina Hayward weight E&M 225 [lb_av] [facility] E&M 16 /min Ata Hayward height E&M 68 [in_i] [facility] Body Mass Index (Ratio) 33.90 kg/m2 Jairo Richard blood pressure, cuff size regular Henry rri Brisafranciscauri blood pressure, diastolic 90 mm[Hg] Henry rruri Ledezmafranciscauri blood pressure, systolic 167 mm[Hg] Kenji Ag oxygen saturation, oximetry 95 % Madhuri Ag respiratory rate E&M 18 /min Madhuri Toney dimastristonpeyton pulse rate 72 /min Madhuri Bardales [facility] weight E&M 223 [lb_av] Madhuri Bardales [facility] height E&M 68 [in_i] Madhuri Bardales [facility] Body Mass Index (Ratio) 33.60 kg/m2 Luther perkins Chaparro blood pressure, diastolic 80 mm[Hg] Fabrice Byrne blood pressure, systolic 132 mm[Hg] Shawn Byrne pulse rate 73 /min Joyce Byrne respiratory rate E&M 19 /min Joyce Byrne oxygen saturation, oximetry 98 % Joyce Byrne blood pressure, cuff size regular Fabrice Byrne weight E&M 221 [lb_av] Joyce Byrne height E&M 68 [in_i] Joyce Byrne Body Mass Index (Ratio) 33.26 kg/m2 Jairo Richard blood pressure, resting Yes Kenan Thakkar MD blood pressure, diastolic 94 mm[Hg] Rocky Vazquez blood pressure, systolic 186 mm[Hg] Lynda Vazquez oxygen saturation, oximetry 96 % Jennifer Vazquez respiratory rate E&M 18 /min Saniya Vazquez pulse rate 79 /min Jennifer jackson weight E&M 218.8 [lb_av] Jennifer tucker height E&M 68 [in_i] Jennifer jackson blood pressure, diastolic, left arm 96 mm [Hg] Cherie Prabhakar blood pressure, systolic, left arm 166 mm [Hg] Cherie Prabhakar blood pressure, diastolic, right arm 90 m m[Hg] Cherie Prabhakar blood pressure, systolic, right arm 175 m m[Hg] Cherie Prabhakar blood pressure, diastolic 90 mm[Hg] Ny oskar Prabhakar blood pressure, systolic 175 mm[Hg] Elsa Prabhakar pulse rate 70 /min Cherie Prabhakar oxygen saturation, oximetry 97 % Cherie Prabhakar respiratory rate E&M 18 /min Cherie Prabhakar Body Mass Index (Ratio) 35.33 kg/m2 Laura Prabhakar weight E&M 232.4 [lb_av] Cherie Prabhakar blood pressure, diastolic 90 mm[Hg] Rocky Vazquez blood pressure, systolic 165 mm[Hg] Lynda Vazquez pulse rate 73 /min Jennifer jackson oxygen saturation, oximetry 96 % Jennifer Vazquez respiratory rate E&M 18 /min Saniya Vazquez Body Mass Index (Ratio) 35.51 kg/m2 Miranda Vazquez weight E&M 233.6 [lb_av] Jennifer Elpidio tucker blood pressure, diastolic 95 mm[Hg] Rocky Vazquez blood pressure, systolic 180 mm[Hg] Lynda Vazquez Body Mass Index (Ratio) 35.03 kg/m2 Miranda Vazquez pulse rate 69 /min Jennifer jackson oxygen saturation, oximetry 94 % Jennifer Vazquez respiratory rate E&M 18 /min Saniya Vazquez weight E&M 230.4 [lb_av] Jennifer tucker Body Mass Index (Ratio) 35.42 kg/m2 Anea shaina Brown blood pressure, diastolic, left arm 103 m m[Hg] hSyatris Lennox blood pressure, systolic, left arm 174 mm [Hg] Shyatris Lennox blood pressure, diastolic, right arm 95 m m[Hg] Aneatris Lenn[place] blood pressure, systolic, right arm 158 m m[Hg] Shyatris Lennox blood pressure, diastolic 95 mm[Hg] An haylie High blood pressure, systolic 158 mm[Hg] Shy dianas [place] pulse rate 70 /min Shyatris Lenn[place] oxygen saturation, oximetry 95 % Rodolfo High respiratory rate E&M 18 /min Garoi farooq High weight E&M 233 [lb_av] Shyatris Lennox Body Mass Index (Ratio) 35.12 kg/m2 Kassi High blood pressure, diastolic 74 mm[Hg] Gennaro [facility] blood pressure, systolic 134 mm[Hg] Shy [facility] pulse rate 76 /min Shyatris [facility] oxygen saturation, oximetry 96 % Rodolfo High respiratory rate E&M 18 /min Garoi s [place] weight E&M 231 [lb_av] Shyatris Lennox blood pressure, diastolic, left arm 70 mm [Hg] Kenan Thakkar MD blood pressure, systolic, left arm 132 mm [Hg] Kenan Thakkar MD blood pressure, diastolic, right arm 80 m m[Hg] Kenan Thakkar MD blood pressure, systolic, right arm 130 m m[Hg] Kenan Thakkar MD blood pressure, diastolic 70 mm[Hg] Michaela Thakkar MD blood pressure, systolic 132 mm[Hg] Kenan Thakkar MD pulse rate 83 /min Kenan Thakkar MD oxygen saturation, oximetry 97 % Kenan Thakkar MD respiratory rate E&M 15 /min Kenan toussaint MD weight E&M 226 [lb_av] Kenan Thakkar MD Body Mass Index (Ratio) 34.49 kg/m2 Sergio [place] blood pressure, diastolic, left arm 80 mm [Hg] Koreyming [place] blood pressure, systolic, left arm 148 mm [Hg] [facility] [place] [facility] pressure, diastolic, right arm 84 m m[Hg] [facility] [place] blood pressure, systolic, right arm 147 m m[Hg] [facility] [place] blood pressure, diastolic 80 mm[Hg] Melendez blood pressure, systolic 148 mm[Hg] Korey [place] pulse rate 75 /min gennaro [place] oxygen saturation, oximetry 98 % gennaro [place] respiratory rate E&M 16 /min [facility] [place] weight E&M 226 [lb_av] Srinath [place] blood pressure, diastolic 82 mm[Hg] Syed Cooley RN blood pressure, systolic 120 mm[Hg] Jericho Cooley RN pulse rate 76 /min Jericho Cooley RN oxygen saturation, oximetry 98 % Jericho Cooley RN respiratory rate E&M 16 /min Jericho hansen RN weight E&M 226 [lb_av] Jericho Cooley RN blood pressure, diastolic 80 mm[Hg] Michaela Thakkar MD blood pressure, systolic 126 mm[Hg] Kenan Thakkar MD pulse rate 77 /min Kenan Thakkar MD oxygen saturation, oximetry 98 % Kenan Thakkar MD respiratory rate E&M 18 /min Kenan toussaint MD weight E&M 225 [lb_av] Kenan Thakkar MD Body Mass Index (Ratio) 34.33 kg/m2 Jericho Cooley RN blood pressure, diastolic, left arm 80 mm [Hg] Jericho Cooley RN blood pressure, systolic, left arm 126 mm [Hg] Jericho Cooley RN blood pressure, diastolic, right arm 81 m m[Hg] Jericho Swartzs RN blood pressure, systolic, right arm 130 m m[Hg] Jericho Cooley RN blood pressure, diastolic 80 mm[Hg] Syed Cooley RN blood pressure, systolic 126 mm[Hg] Jericho Swartzs RN pulse rate 77 /min Jericho Swartzfarooq GUTIÉRREZ oxygen saturation, oximetry 98 % Jericho Cooley RN respiratory rate E&M 18 /min Jericho hansen RN weight E&M 225 [lb_av] Jericho Swartzfarooq GUTIÉRREZ height E&M 68 [in_i] Jericho Swartzfarooq GUTIÉRREZ blood pressure, diastolic, left arm 62 mm [Hg] Jericho Swartzfarooq GUTIÉRREZ blood pressure, systolic, left arm 103 mm [Hg] Jericho Swartzs RN blood pressure, diastolic, right arm 58 m m[Hg] Jericho Swartzs RN blood pressure, systolic, right arm 101 m m[Hg] Jericho Swartzs RN blood pressure, diastolic 58 mm[Hg] Syed lópez Cooley RN blood pressure, systolic 101 mm[Hg] Jericho Swartzs RN pulse rate 80 /min Jericho Swartzfarooq GUTIÉRREZ oxygen saturation, oximetry 96 % Jericho Swartzfarooq GUTIÉRREZ respiratory rate E&M 16 /min Jericho hansen RN weight E&M 225 [lb_av] Jericho Swartzs RN blood pressure, diastolic, left arm 88 mm [Hg] Amilcar [place] blood pressure, systolic, left arm 148 mm [Hg] Amilcar [place] blood pressure, diastolic, right arm 88 m m[Hg] Amilcar [place] blood pressure, systolic, right arm 142 m m[Hg] Amilcar [place] blood pressure, diastolic 88 mm[Hg] Erica seph [place] blood pressure, systolic 142 mm[Hg] Gonzales eph [place] pulse rate 77 /min Amilcar [place] oxygen saturation, oximetry 99 % Amilcar [place] respiratory rate E&M 16 /min Amilcar [place] weight E&M 225 [lb_av] Amilcar [place] blood pressure, diastolic 75 mm[Hg] Syed Cooley RN blood pressure, systolic 117 mm[Hg] Jericho Cooley RN pulse rate 82 /min Jericho Cooley RN oxygen saturation, oximetry 97 % Jericho Cooley RN respiratory rate E&M 16 /min Jericho hansen RN weight E&M 223 [lb_av] Jericho Cooley RN blood pressure, diastolic 74 mm[Hg] Syed Cooley RN blood pressure, systolic 127 mm[Hg] Jericho Cooley RN pulse rate 68 /min Jericho Cooley RN oxygen saturation, oximetry 97 % Jericho Cooley RN respiratory rate E&M 18 /min Jericho hansen RN weight E&M 231 [lb_av] Jericho Cooley RN blood pressure, diastolic, left arm 73 mm [Hg] Amilcar [place] blood pressure, systolic, left arm 126 mm [Hg] Amilcar [place] blood pressure, diastolic, right arm 76 m m[Hg] Amilcar [place] blood pressure, systolic, right arm 131 m m[Hg] Amilcar [place] blood pressure, diastolic 76 mm[Hg] Erica seph [place] blood pressure, systolic 131 mm[Hg] Gonzales eph [place] pulse rate 67 /min Amilcar [place] oxygen saturation, oximetry 97 % Amilcar [place] respiratory rate E&M 16 /min Amilcar [place] weight E&M 228 [lb_av] Amilcar [place] blood pressure, diastolic 78 mm[Hg] Jus Dickey blood pressure, systolic 124 mm[Hg] Kaitlin Dickey pulse rate 68 /min Adilene Dickey oxygen saturation, oximetry 99 % Adilene Dickey respiratory rate E&M 18 /min Adilene Dickey weight E&M 224.2 [lb_av] Adilene Dickey blood pressure, diastolic, left arm 84 mm [Hg] Shima Frame blood pressure, systolic, left arm 156 mm [Hg] Shima Frame blood pressure, diastolic, right arm 84 m m[Hg] Shima Frame blood pressure, systolic, right arm 146 m m[Hg] Shima Frame oxygen saturation, oximetry 97 % Shima Frame blood pressure, diastolic 84 mm[Hg] Tr y Frame blood pressure, systolic 156 mm[Hg] Tra cy Frame pulse rate 61 /min Shima Frame respiratory rate E&M 16 /min Shima Jefferson maverick weight E&M 226 [lb_av] Shima Frame blood pressure, diastolic, left arm 92 mm [Hg] [facility] [place] [facility], left arm 140 mm [Hg] [facility] [place] [facility], diastolic, right arm 81 m m[Hg] [facility] [place] [facility], systolic, right arm 131 m m[Hg] [facility] [place] [facility], diastolic 82 mm[Hg] Burton [place] blood pressure, systolic 131 mm[Hg] Korey gennaro [place] pulse rate 72 /min [facility] [place] [facility] saturation, oximetry 96 % [facility] [place] [facility] rate E&M 16 /min Koreygennaro [place] weight E&M 236 [lb_av] Koreygennaro [place] blood pressure, diastolic, left arm 75 mm [Hg] Jericho Cooley RN blood pressure, systolic, left arm 120 mm [Hg] Jericho Cooley RN blood pressure, diastolic, right arm 74 m m[Hg] Jericho Cooley RN blood pressure, systolic, right arm 117 m m[Hg] Jericho Cooley RN blood pressure, diastolic 75 mm[Hg] Syed lópez Lenora RN blood pressure, systolic 120 mm[Hg] Jericho Cooley RN pulse rate 64 /min Jericho Cooley RN oxygen saturation, oximetry 95 % Jericho Swartzs RN respiratory rate E&M 16 /min Jericho Franca jade RN weight E&M 251 [lb_av] Jericho Cooley RN blood pressure, diastolic, left arm 83 mm [Hg] Marily Ball MA blood pressure, systolic, left arm 137 mm [Hg] Marily Ball MA blood pressure, diastolic, right arm 80 m m[Hg] Marilylisa Ball MA blood pressure, systolic, right arm 151 m m[Hg] Marily Ball MA oxygen saturation, oximetry 96 % Marily Ball MA blood pressure, diastolic 80 mm[Hg] Evelyn gonzalez Quinn RESENDIZ blood pressure, systolic 151 mm[Hg] Miguelangel terrance Ball MA pulse rate 67 /min Marily Ball MA respiratory rate E&M 18 /min Marily Ball [place] weight E&M 275 [lb_av] Marilylisa Ball MA blood pressure, diastolic, left arm 60 mm [Hg] Jericho Cooley RN blood pressure, systolic, left arm 102 mm [Hg] Jericho Cooley RN blood pressure, diastolic, right arm 64 m m[Hg] Jericho Cooley RN blood pressure, systolic, right arm 116 m m[Hg] Jericho Cooley RN blood pressure, diastolic 60 mm[Hg] Santo Casarez blood pressure, systolic 102 mm[Hg] Hal Casarez pulse rate 67 /min Bozena Casarez oxygen saturation, oximetry 97 % Bozena Casarez respiratory rate E&M 18 /min Quentin Casarez weight E&M 305 [lb_av] Bozena Casarez blood pressure, diastolic 80 mm[Hg] Erica seph [place] blood pressure, systolic 140 mm[Hg] Gonzales eph [place] pulse rate 74 /min Amilcar [place] oxygen saturation, oximetry 94 % Amilcar [place] respiratory rate E&M 16 /min Amilcar [place] weight E&M 302 [lb_av] Amilcar [place] blood pressure, diastolic, standing 81 mm [Hg] Kenan Thakkar MD blood pressure, systolic, standing 150 mm [Hg] Kenan Thakkar MD blood pressure, diastolic, supine 82 mm[H g] Kenan Thakkra MD blood pressure, systolic, supine E&M 143 mm[Hg] Kenan Thakkar MD blood pressure, diastolic 83 mm[Hg] Evelyn Ball MA blood pressure, systolic 137 mm[Hg] Miguelangel Ball MA pulse rate 70 /min Marily Ball MA oxygen saturation, oximetry 95 % Marily Ball MA respiratory rate E&M 20 /min Marily Ball MA weight E&M 301 [lb_av] Marily Ball MA blood pressure, diastolic 91 mm[Hg] Erica seph [place] blood pressure, systolic 155 mm[Hg] Gonzales eph [place] pulse rate 84 /min Amilcar [place] oxygen saturation, oximetry 96 % Amilcar [place] respiratory rate E&M 16 /min Amilcar [place] weight E&M 294 [lb_av] Amilcar [place] weight E&M 298 [lb_av] Kylah Magda pulse rate 69 /min Kylah Magda oxygen saturation, oximetry 95 % Kylah Magda respiratory rate E&M 20 /min Kylah [place] blood pressure, diastolic 85 mm[Hg] Fe jossie [place] blood pressure, systolic 163 mm[Hg] Fel icia [place] ALLERGIES Allergy Name Onset Date Reaction Criticality Status FLECAINIDE ACETATE Runs of non-s ustained VT (< 3 seconds) on Holter 2010 Low Criticality active NARCOTICS Low Criticality active RESULTS Date Observation Value Provider Reference Range Interpretation Location 04/21 urine culture (with units of CFunits/mL) SEE NOTE [facility] 04/21 prothrombin time (patient) 11.1 s [facility] 9.0-11.5 Normal 04/21 international normalized ratio (INR) 1.1 [facility] Normal 04/21 hyaline casts, urine NONE SEEN [facility] NONE SEEN Normal 04/21 bacteria, urine microscopy NONE SEEN [facility] NONE SEEN Normal 04/21 epithelial cells, urine 0-5 [facility] < OR = 5 04/21 RBC urine by microscopy 0-2 [facility] < OR = 2 Normal 04/21 WBC urine on microscopy 10-20 /HPF [facility] < OR = 5 Abnormal 04/21 protein, urine, semiquantitative (dipstick) NEGATIVE [facility] NEGATIVE Normal 04/21 blood in urine (hemoglobin) by dipstick NEGATIVE [facility] NEGATIVE Normal 04/21 ketones, urine, by test strip NEGATIVE [facility] NEGATIVE Normal 04/21 bilirubin, urine NEGATIVE [facility] NEGATIVE Normal 04/21 glucose, urine, semiquantitative NEGATIVE [facility] NEGATIVE Normal 04/21 pH, urine, semiquantitative 6.0 [facility] 5.0-8.0 Normal 04/21 specific gravity, urine 1.013 [facility] 1.001-1.03 5 Normal 04/21 appearance, urine CLEAR [facility] CLEAR Normal 04/21 urine color YELLOW [facility] YELLOW Normal 04/21 PTT patient 34 s [facility] 23-32 High 04/21 basophils as percent of blood leukocytes 0.3 % [facility] Normal 04/21 eosinophils as percent of blood leukocytes 2.2 % [facility] Normal 04/21 monocyte count, blood 10.7 % [facility] Normal 04/21 lymphocyte count, blood 23.3 % [facility] Normal 04/21 neutrophils as percent of blood leukocytes 63.5 % [facility] Normal 04/21 basophils, absolute, manual 19 cells/mcL [facility] 0-200 Normal 04/21 eosinophils, absolute, manual 139 cells/mcL [facility] 15-500 Normal 04/21 monocytes, absolute, manual 674 cells/mcL [facility] 200-950 Normal 04/21 lymphocytes, absolute 1468 CELLS/UL [facility] 850-3900 Normal 04/21 Absolute Neutrophil count 4001 cells/mcL [facility] 1430-3022 Normal 04/21 mean platelet volume 10.2 fL [facility] 7.5-12.5 Normal 04/21 platelet count 260 THOUSAND/UL [facility] 140-400 Normal 04/21 red blood cell distribution width 13.4 % [facility] 11.0-15.0 Normal 04/21 mean corpuscular hemoglobin concentration, RBC 33.3 G/DL [facility] 32.0-36.0 Normal 04/21 mean corpuscular hemoglobin, RBC 30.4 pg [facility] 27.0-33.0 Normal 04/21 mean corpuscular volume, RBC 91.1 fL [facility] 80.0-100.0 Normal 04/21 hematocrit, blood 40.8 % [facility] 35.0-45.0 Normal 04/21 hemoglobin electrophoresis, blood 13.6 [facility] 11.7-15.5 Normal 04/21 erythrocyte (RBC) count 4.48 MILLION/UL [facility] 3.80-5.10 Normal 04/21 leukocyte (white blood cells) count, blood 6.3 THOUSAND/UL [facility] 3.8-10.8 Normal 04/21 alanine aminotransferase (SGPT), serum 47 1/L [facility] 6-29 High 04/21 aspartate aminotransferase (SGOT), serum 66 1/L [facility] 10-35 High 04/21 alkaline phosphatase, serum 175 1/L [facility] 37-153 High 04/21 bilirubin, serum, total 0.9 mg/dL [facility] 0.2-1.2 Normal 04/21 albumin/globulin ratio, serum 1.3 (calc) [facility] 1.0-2.5 Normal 04/21 globulins, serum, total 2.9 G/DL (CALC) [facility] 1.9-3.7 Normal 04/21 albumin, serum 3.7 g/dL [facility] 3.6-5.1 Normal 04/21 protein, total, serum 6.6 g/dL [facility] 6.1-8.1 Normal 04/21 calcium, serum 8.5 mg/dL [facility] 8.6-10.4 Low 04/21 carbon dioxide, venous blood 29 mmol/L [facility] 20-32 Normal 04/21 chloride, serum 103 mmol/L [facility] 98-110 Normal 04/21 potassium, serum 3.9 mmol/L [facility] 3.5-5.3 Normal 04/21 sodium, serum 139 mmol/L [facility] 135-146 Normal 04/21 urea nitrogen/creatinin e ratio, serum SEE NOTE: (calc) [facility] 6-22 04/21 creatinine, serum 0.61 mg/dL [facility] 0.50-1.05 Normal 04/21 urea nitrogen, blood 16 mg/dL [facility] 7-25 Normal 04/21 blood glucose, random 85 mg/dL [facility] 65-99 Normal 12/25 prothrombin time (patient) 11.1 s [facility] 9.0-11.5 Normal 12/25 international normalized ratio (INR) 1.1 [facility] Normal 12/25 PTT patient 35 s [facility] 23-32 High 12/25 basophils as percent of blood leukocytes 0.3 % [facility] Normal 12/25 eosinophils as percent of blood leukocytes 3.0 % [facility] Normal 12/25 monocyte count, blood 11.5 % [facility] Normal 12/25 lymphocyte count, blood 24.7 % [facility] Normal 12/25 neutrophils as percent of blood leukocytes 60.5 % [facility] Normal 12/25 basophils, absolute, manual 17 cells/mcL [facility] 0-200 Normal 12/25 eosinophils, absolute, manual 171 cells/mcL [facility] 15-500 Normal 12/25 monocytes, absolute, manual 656 cells/mcL [facility] 200-950 Normal 12/25 lymphocytes, absolute 1408 CELLS/UL [facility] 850-3900 Normal 12/25 Absolute Neutrophil count 3449 cells/mcL [facility] 5773-0416 Normal 12/25 mean platelet volume 10.4 fL [facility] 7.5-12.5 Normal 12/25 platelet count 267 THOUSAND/UL [facility] 140-400 Normal 12/25 red blood cell distribution width 13.6 % [facility] 11.0-15.0 Normal 12/25 mean corpuscular hemoglobin concentration, RBC 33.0 G/DL [facility] 32.0-36.0 Normal 12/25 mean corpuscular hemoglobin, RBC 30.1 pg [facility] 27.0-33.0 Normal 12/25 mean corpuscular volume, RBC 91.4 fL [facility] 80.0-100.0 Normal 12/25 hematocrit, blood 39.1 % [facility] 35.0-45.0 Normal 12/25 hemoglobin electrophoresis, blood 12.9 [facility] 11.7-15.5 Normal 12/25 erythrocyte (RBC) count 4.28 MILLION/UL [facility] 3.80-5.10 Normal 12/25 leukocyte (white blood cells) count, blood 5.7 THOUSAND/UL [facility] 3.8-10.8 Normal 12/25 alanine aminotransferase (SGPT), serum 50 1/L [facility] 6-29 High 12/25 aspartate aminotransferase (SGOT), serum 69 1/L [facility] 10-35 High 12/25 alkaline phosphatase, serum 159 1/L [facility] 37-153 High 12/25 bilirubin, serum, total 0.8 mg/dL [facility] 0.2-1.2 Normal 12/25 albumin/globulin ratio, serum 1.3 (calc) [facility] 1.0-2.5 Normal 12/25 globulins, serum, total 2.7 G/DL (CALC) [facility] 1.9-3.7 Normal 12/25 albumin, serum 3.4 g/dL [facility] 3.6-5.1 Low 12/25 protein, total, serum 6.1 g/dL [facility] 6.1-8.1 Normal 12/25 calcium, serum 8.6 mg/dL [facility] 8.6-10.4 Normal 12/25 carbon dioxide, venous blood 30 mmol/L [facility] 20-32 Normal 12/25 chloride, serum 102 mmol/L [facility] 98-110 Normal 12/25 potassium, serum 4.0 mmol/L [facility] 3.5-5.3 Normal 12/25 sodium, serum 139 mmol/L [facility] 135-146 Normal 12/25 urea nitrogen/creatinin e ratio, serum SEE NOTE: (calc) [facility] 6-22 12/25 creatinine, serum 0.72 mg/dL [facility] 0.50-1.05 Normal 12/25 urea nitrogen, blood 17 mg/dL [facility] 7-25 Normal 12/25 blood glucose, random 85 mg/dL [facility] 65-99 Normal 11/18 prothrombin time (patient) 11.2 s [facility] 9.0-11.5 Normal 11/18 international normalized ratio (INR) 1.1 [facility] Normal 11/18 basophils as percent of blood leukocytes 0.2 % [facility] Normal 11/18 eosinophils as percent of blood leukocytes 2.4 % [facility] Normal 11/18 monocyte count, blood 11.1 % [facility] Normal 11/18 lymphocyte count, blood 23.5 % [facility] Normal 11/18 neutrophils as percent of blood leukocytes 62.8 % [facility] Normal 11/18 basophils, absolute, manual 11 cells/mcL [facility] 0-200 Normal 11/18 eosinophils, absolute, manual 130 cells/mcL [facility] 15-500 Normal 11/18 monocytes, absolute, manual 599 cells/mcL [facility] 200-950 Normal 11/18 lymphocytes, absolute 1269 CELLS/UL [facility] 850-3900 Normal 11/18 Absolute Neutrophil count 3391 cells/mcL [facility] 5082-2171 Normal 11/18 mean platelet volume 10.5 fL [facility] 7.5-12.5 Normal 11/18 platelet count 286 THOUSAND/UL [facility] 140-400 Normal 11/18 red blood cell distribution width 13.0 % [facility] 11.0-15.0 Normal 11/18 mean corpuscular hemoglobin concentration, RBC 33.1 G/DL [facility] 32.0-36.0 Normal 11/18 mean corpuscular hemoglobin, RBC 29.7 pg [facility] 27.0-33.0 Normal 11/18 mean corpuscular volume, RBC 89.7 fL [facility] 80.0-100.0 Normal 11/18 hematocrit, blood 39.9 % [facility] 35.0-45.0 Normal 11/18 hemoglobin electrophoresis, blood 13.2 [facility] 11.7-15.5 Normal 11/18 erythrocyte (RBC) count 4.45 MILLION/UL [facility] 3.80-5.10 Normal 11/18 leukocyte (white blood cells) count, blood 5.4 THOUSAND/UL [facility] 3.8-10.8 Normal 11/18 calcium, serum 8.5 mg/dL [facility] 8.6-10.4 Low 11/18 carbon dioxide, venous blood 33 mmol/L [facility] 20-32 High 11/18 chloride, serum 102 mmol/L [facility] 98-110 Normal 11/18 potassium, serum 3.8 mmol/L [facility] 3.5-5.3 Normal 11/18 sodium, serum 140 mmol/L [facility] 135-146 Normal 11/18 urea nitrogen/creatinin e ratio, serum SEE NOTE: (calc) [facility] -11/18 creatinine, serum 0.62 mg/dL [facility] 0.50-1.05 Normal 11/18 urea nitrogen, blood 16 mg/dL [facility] 7-25 Normal 11/18 blood glucose, random 86 mg/dL [facility] 65-99 Normal 11/18 cholesterol, non-HDL, total 95 MG/DL (CALC) [facility] <130 Normal 11/18 cholesterol/HDL ratio, serum, percent 2.5 (calc) [facility] <5.0 Normal 11/18 LDL cholesterol, serum 78 MG/DL (CALC) [facility] Normal 11/18 triglyceride, serum, fasting 83 mg/dL [facility] <150 Normal 11/18 HDL cholesterol, serum 64 mg/dL [facility] > OR = 50 Normal 11/18 cholesterol, serum 159 mg/dL [facility] <200 Normal 09/04 calcium, serum 9.4 mg/dL [facility] 8.6-10.4 Normal 09/04 carbon dioxide, venous blood 32 mmol/L [facility] 20-32 Normal 09/04 chloride, serum 104 mmol/L [facility] 98-110 Normal 09/04 potassium, serum 4.3 mmol/L [facility] 3.5-5.3 Normal 09/04 sodium, serum 141 mmol/L [facility] 135-146 Normal 09/04 urea nitrogen/creatinin e ratio, serum NOT APPLICABLE (calc) [facility] -09/04 Estimated Glomerular Filtration Rate (calc) 83 mL/min/{1.73 _m2} [facility] > OR = 60 Normal 09/04 creatinine, serum 0.85 mg/dL [facility] 0.50-0.99 Normal 09/04 urea nitrogen, blood 25 mg/dL [facility] 7-25 Normal 09/04 blood glucose, random 67 mg/dL [facility] 65-99 Normal 11/27 calcium, serum 8.7 mg/dL [facility] 8.7-10.3 11/27 carbon dioxide, venous blood 29 mmol/L [facility] 20-29 11/27 chloride, serum 103 mmol/L [facility] 96-106 11/27 potassium, serum 4.3 mmol/L [facility] 3.5-5.2 11/27 sodium, serum 141 mmol/L [facility] 004-591 5504/0 8/12 urea nitrogen/creatinin e ratio, serum 28 [facility] 12-28 11/27 eGFR if 109 mL/min/{1.73 _m2} [facility] >59 11/27 eGFR if not 95 mL/min/{1.73 _m2} [facility] >59 11/27 creatinine, serum 0.64 mg/dL [facility] 0.57-1.00 11/27 urea nitrogen, blood 18 mg/dL [facility] 8-27 11/27 blood glucose, random 87 mg/dL [facility] 65-99 05/17 alanine aminotransferase (SGPT), serum 12 1/L [facility] 6-29 Normal 05/17 aspartate aminotransferase (SGOT), serum 17 1/L [facility] 10-35 Normal 05/17 alkaline phosphatase, serum 155 1/L [facility] 33-130 High 05/17 bilirubin, serum, indirect 0.5 MG/DL (CALC) [facility] 0.2-1.2 Normal 05/17 bilirubin, serum, direct 0.1 mg/dL [facility] < OR = 0.2 Normal 05/17 bilirubin, serum, total 0.6 mg/dL [facility] 0.2-1.2 Normal 05/17 albumin/globulin ratio, serum 1.3 (calc) [facility] 1.0-2.5 Normal 05/17 globulins, serum, total 2.8 G/DL (CALC) [facility] 1.9-3.7 Normal 05/17 albumin, serum 3.6 g/dL [facility] 3.6-5.1 Normal 05/17 protein, total, serum 6.4 g/dL [facility] 6.1-8.1 Normal 05/17 cholesterol, non-HDL, total 112 MG/DL (CALC) [facility] <130 Normal 05/17 cholesterol/HDL ratio, serum, percent 2.6 (calc) [facility] <5.0 Normal 05/17 LDL cholesterol, serum 94 MG/DL (CALC) [facility] Normal 05/17 triglyceride, serum, fasting 87 mg/dL [facility] <150 Normal 05/17 HDL cholesterol, serum 72 mg/dL [facility] >50 Normal 05/17 cholesterol, serum 184 mg/dL [facility] <200 Normal 12/15 LDL cholesterol, serum 200 mg/dL Jeremías Baltazarberg 05/19 urine culture (with units of CFunits/mL) SEE NOTE [facility] 05/19 prothrombin time (patient) 10.3 s [facility] 9.0-11.5 Normal 05/19 international normalized ratio (INR) 1.0 [facility] Normal 05/19 PTT patient 31.0 s [facility] Units converted. See lab report for original value. Normal 05/19 basophils as percent of blood leukocytes 0.2 % [facility] Normal 05/19 eosinophils as percent of blood leukocytes 2.8 % [facility] Normal 05/19 monocyte count, blood 9.4 % [facility] Normal 05/19 lymphocyte count, blood 27.0 % [facility] Normal 05/19 neutrophils as percent of blood leukocytes 60.6 % [facility] Normal 05/19 basophils, absolute, manual 10 cells/mcL [facility] 0-200 Normal 05/19 eosinophils, absolute, manual 140 cells/mcL [facility] 15-500 Normal 05/19 monocytes, absolute, manual 470 cells/mcL [facility] 200-950 Normal 05/19 lymphocytes, absolute 1350 CELLS/UL [facility] 850-3900 Normal 05/19 Absolute Neutrophil count 3030 cells/mcL [facility] 5799-7133 Normal 05/19 mean platelet volume 9.7 fL [facility] 7.5-12.5 Normal 05/19 platelet count 263 THOUSAND/UL [facility] 140-400 Normal 05/19 red blood cell distribution width 13.4 % [facility] 11.0-15.0 Normal 05/19 mean corpuscular hemoglobin concentration, RBC 33.1 G/DL [facility] 32.0-36.0 Normal 05/19 mean corpuscular hemoglobin, RBC 29.8 pg [facility] 27.0-33.0 Normal 05/19 mean corpuscular volume, RBC 90.1 fL [facility] 80.0-100.0 Normal 05/19 hematocrit, blood 41.1 % [facility] 35.0-45.0 Normal 05/19 hemoglobin electrophoresis, blood 13.6 [facility] 11.7-15.5 Normal 05/19 erythrocyte (RBC) count 4.56 MILLION/UL [facility] 3.80-5.10 Normal 05/19 leukocyte (white blood cells) count, blood 5.0 THOUSAND/UL [facility] 3.8-10.8 Normal 05/19 hyaline casts, urine NONE SEEN [facility] NONE SEEN Normal 05/19 bacteria, urine microscopy FEW [facility] NONE SEEN Abnormal 05/19 epithelial cells, urine 6-10 [facility] < OR = 5 Abnormal 05/19 RBC urine by microscopy NONE SEEN [facility] < OR = 2 Normal 05/19 WBC urine on microscopy 6-10 /HPF [facility] < OR = 5 Abnormal 05/19 protein, urine, semiquantitative (dipstick) NEGATIVE [facility] NEGATIVE Normal 05/19 blood in urine (hemoglobin) by dipstick NEGATIVE [facility] NEGATIVE Normal 05/19 ketones, urine, by test strip NEGATIVE [facility] NEGATIVE Normal 05/19 bilirubin, urine NEGATIVE [facility] NEGATIVE Normal 05/19 glucose, urine, semiquantitative NEGATIVE [facility] NEGATIVE Normal 05/19 pH, urine, semiquantitative 6.5 [facility] 5.0-8.0 Normal 05/19 specific gravity, urine 1.015 [facility] 1.001-1.03 5 Normal 05/19 appearance, urine CLOUDY [facility] CLEAR Abnormal 05/19 urine color YELLOW [facility] YELLOW Normal 05/19 alanine aminotransferase (SGPT), serum 12 1/L [facility] 6-29 Normal 05/19 aspartate aminotransferase (SGOT), serum 17 1/L [facility] 10-35 Normal 05/19 alkaline phosphatase, serum 137 1/L [facility] 33-130 High 05/19 bilirubin, serum, total 0.6 mg/dL [facility] 0.2-1.2 Normal 05/19 albumin/globulin ratio, serum 1.4 (calc) [facility] 1.0-2.5 Normal 05/19 globulins, serum, total 2.5 G/DL (CALC) [facility] 1.9-3.7 Normal 05/19 albumin, serum 3.6 g/dL [facility] 3.6-5.1 Normal 05/19 protein, total, serum 6.1 g/dL [facility] 6.1-8.1 Normal 05/19 calcium, serum 8.4 mg/dL [facility] 8.6-10.4 Low 05/19 carbon dioxide, venous blood 32 mmol/L [facility] 20-32 Normal 05/19 chloride, serum 102 mmol/L [facility] 98-110 Normal 05/19 potassium, serum 3.9 mmol/L [facility] 3.5-5.3 Normal 05/19 sodium, serum 141 mmol/L [facility] 135-146 Normal 05/19 urea nitrogen/creatinin e ratio, serum NOT APPLICABLE (calc) [facility] -05/19 Estimated Glomerular Filtration Rate (calc) 110 mL/min/{1.73 _m2} [facility] > OR = 60 Normal 05/19 creatinine, serum 0.66 mg/dL [facility] 0.50-0.99 Normal 05/19 urea nitrogen, blood 15 mg/dL [facility] 7-25 Normal 05/19 blood glucose, random 81 mg/dL [facility] 65-99 Normal 06/28 calcium, serum 9.0 mg/dL [facility] 8.7-10.2 06/28 carbon dioxide, venous blood 29 mmol/L [facility] 18-29 06/28 chloride, serum 99 mmol/L [facility] 97-108 06/28 potassium, serum 4.0 mmol/L [facility] 3.5-5.2 06/28 sodium, serum 142 mmol/L [facility] 745-879 3359/0 3/13 urea nitrogen/creatinin e ratio, serum 24 [facility] 9-23 High 06/28 eGFR if not 93 mL/min/{1.73 _m2} [facility] >59 06/28 creatinine, serum 0.72 mg/dL [facility] 0.57-1.00 06/28 urea nitrogen, blood 17 mg/dL [facility] 6-24 06/28 blood glucose, random 85 mg/dL [facility] 65-99 06/20 basophil count, absolute 0.0 x10E3/uL [facility] 0.0-0.2 06/20 Eosinophil Absolute Count 0.1 X10E3/UL [facility] 0.0-0.4 06/20 monocyte count, blood, automated 0.5 X10E3/UL [facility] 0.1-0.9 06/20 lymphocyte count, blood, automated 1.2 X10E3/UL [facility] 0.7-3.1 06/20 Absolute Neutrophils 3.1 X10E3/UL [facility] 1.4-7.0 06/20 basophils as percent of blood leukocytes 0 % [facility] 06/20 eosinophils as percent of blood leukocytes 3 % [facility] 06/20 monocytes as percent of blood leukocytes 10 % [facility] 06/20 lymphocytes as percent of blood leukocytes 24 % [facility] 06/20 neutrophils as percent of blood leukocytes 63 % [facility] 06/20 platelet count 275 X10E3/UL [facility] 056-543 5329/0 3/05 red blood cell distribution width 14.3 % [facility] 12.3-15.4 06/20 mean corpuscular hemoglobin concentration, RBC 32.7 G/DL [facility] 31.5-35.7 06/20 mean corpuscular hemoglobin, RBC 29.3 pg [facility] 26.6-33.0 06/20 mean corpuscular volume, RBC 90 fL [facility] 79-97 06/20 hematocrit, blood 39.5 % [facility] 34.0-46.6 06/20 [facility]/20 erythrocyte (RBC) count 4.41 X10E6/UL [facility] 3.77-5.28 06/20 leukocyte count, blood 4.9 X10E3/UL [facility] 3.4-10.8 05/14 very low density lipoproteins 22 mg/dL [facility] 05/14 triglyceride, serum, fasting 110 mg/dL [facility] 05/14 HDL cholesterol, serum 55 mg/dL [facility] 05/14 LDL cholesterol, serum 160 mg/dL [facility] 05/14 cholesterol, serum 237 mg/dL [facility] 06/07 activated partial thromboplastin time (aPTT) 33 s [facility] 24-33 06/07 prothrombin time (patient) 11.4 s [facility] 9.1-12.0 06/07 international normalized ratio (INR) 1.1 [facility] 0.8-1.2 06/07 calcium, serum 8.9 mg/dL [facility] 8.7-10.2 06/07 carbon dioxide, venous blood 25 [facility] 06/07 chloride, serum 102 mmol/L [facility] 97-108 06/07 potassium, serum 3.9 mmol/L [facility] 3.5-5.2 06/07 sodium, serum [phone]/1 2/20 urea nitrogen/creatinin e ratio, serum 24 [facility] 9-23 High 06/07 eGFR if not 71 mL/min/{1.73 _m2} [facility] >59 06/07 creatinine, serum 0.90 mg/dL [facility] 0.57-1.00 06/07 urea nitrogen, blood 22 mg/dL [facility] 6-24 06/07 blood glucose, random 124 mg/dL [facility] 65-99 High 06/07 urinalysis, microscopic examination See report [facility] 06/07 nitrate, urine Negative [facility] Negative 06/07 urobilinogen, urine, semiquantitative (dipstick) 0.2 [facility] 0.0-1.9 06/07 bilirubin, urine Negative [facility] Negative 06/07 hemoglobin, urine, by dipstick Negative [facility] Negative 06/07 ketones, urine, by test strip Negative [facility] Negative 06/07 glucose, urine Negative [facility] Negative 06/07 protein, urine, semiquantitative (dipstick) Trace [facility] Negative/T race 06/07 leukocyte esterase, urine, by dipstick Negative [facility] Negative 06/07 appearance, urine Cloudy [facility] Clear Abnormal 06/07 urine color Yellow [facility] Yellow 06/07 pH, urine, semiquantitative 6.0 [facility] 5.0-7.5 06/07 specific gravity, body fluid 1.026 [facility] 1.005-1.03 0 06/07 basophil count, absolute 0.0 x10E3/uL [facility] 0.0-0.2 06/07 Eosinophil Absolute Count 0.2 X10E3/UL [facility] 0.0-0.4 06/07 monocyte count, blood, automated 0.5 X10E3/UL [facility] 0.1-0.9 06/07 lymphocyte count, blood, automated 1.7 X10E3/UL [facility] 0.7-3.1 06/07 Absolute Neutrophils 3.0 X10E3/UL [facility] 1.4-7.0 06/07 basophils as percent of blood leukocytes 0 % [facility] 0-3 06/07 eosinophils as percent of blood leukocytes 3 % [facility] 0-5 06/07 monocytes as percent of blood leukocytes 8 % [facility] 4-12 06/07 lymphocytes as percent of blood leukocytes 32 % [facility] 14-46 06/07 neutrophils as percent of blood leukocytes 57 % [facility] 40-74 06/07 platelet count 263 X10E3/UL [facility] [phone]/1 2/20 red blood cell distribution width 14.1 % [facility] 12.3-15.4 06/07 mean corpuscular hemoglobin concentration, RBC 32.6 G/DL [facility] 31.5-35.7 06/07 mean corpuscular hemoglobin, RBC 30.0 pg [facility] 26.6-33.0 06/07 mean corpuscular volume, RBC 92 fL [facility] 79-97 06/07 hematocrit, blood 42.7 % [facility] 34.0-46.6 06/07 hemoglobin, blood 13.9 g/dL [facility] 11.1-15.9 06/07 erythrocyte (RBC) count 4.63 [id number] [facility] 3.77-5.28 06/07 leukocyte count, blood 5.3 [id number]/UL [facility] 3.4-10.8 06/07 prothrombin time (patient) 22.0 s Madhuri Ag 06/07 international normalized ratio (INR) 2.2 Madhuri Ancelmo Normal 05/29 coagulation managed by Jericho Cooley RN 05/29 prothrombin time (patient) 28.1 s Jericho Cooley RN 05/29 international normalized ratio (INR) 2.8 Jericho Cooley RN Normal 04/24 coagulation managed by Jericho Cooley RN 04/24 prothrombin time (patient) 22.6 s Madhuri Ancelmo 04/24 international normalized ratio (INR) 2.3 Madhuri Gruenenfelder Normal 05/21 coagulation managed by Jericho Cooley RN 05/21 prothrombin time (patient) 24.5 s Jericho Cooley RN 05/21 international normalized ratio (INR) 2.5 Jericho Cooley RN Normal 04/23 coagulation managed by Jericho Cooley RN 04/23 prothrombin time (patient) 24.9 s Jericho Cooley RN 04/23 international normalized ratio (INR) 2.5 Jericho Cooley RN Normal coagulation managed by Jericho Cooley RN prothrombin time (patient) 19.5 s Denyean Trinidad international normalized ratio (INR) 2.0 Denyean Trinidad Normal 12/27 coagulation managed by Jericho Cooley RN 12/27 prothrombin time (patient) 25.7 s Denyean Trinidad 12/27 international normalized ratio (INR) 2.6 Denyean Trinidad Normal 11/25 coagulation managed by Jericho Cooley RN 11/25 international normalized ratio (INR) 2.2 Jericho Cooley RN 11/25 prothrombin time (patient) 22.2 s Jericho Cooley RN 11/11 international normalized ratio (INR) 2.2 Amilcar Manacop 11/11 prothrombin time (patient) 22.4 s Amilcar Manacop 10/24 coagulation managed by Jericho Cooley RN 10/24 international normalized ratio (INR) 2.4 Madhuri Gruenenfelder 10/24 prothrombin time (patient) 24.0 s Madhuri Gruenenfelder 10/10 international normalized ratio (INR) 1.5 Madhuri Gruenenfelder 10/10 prothrombin time (patient) 15.2 s Madhuri Gruenenfelder 09/08 coagulation managed by Jericho Cooley RN 09/08 international normalized ratio (INR) 2.6 Amilcar Manacop 09/08 prothrombin time (patient) 25.7 s Amilcar Manacop 08/09 coagulation managed by Jericho Cooley RN 08/09 international normalized ratio (INR) 2.9 Amilcar Manacop 08/09 prothrombin time (patient) 29.4 s Amilcar Manacop 08/09 calcium, serum 8.8 mg/dL [facility] 8.7-10.2 08/09 carbon dioxide, venous blood 27 mmol/L [facility] 20-32 08/09 chloride, serum 102 mmol/L [facility] 97-108 08/09 potassium, serum 4.0 mmol/L [facility] 3.5-5.2 08/09 sodium, serum 140 mmol/L [facility] 223-877 3715/0 4/24 urea nitrogen/creatinin e ratio, serum 27 [facility] 9-23 High 08/09 eGFR if 107 mL/min/{1.73 _m2} [facility] >59 08/09 eGFR if not 93 mL/min/{1.73 _m2} [facility] >59 08/09 creatinine, serum 0.73 mg/dL [facility] 0.57-1.00 08/09 urea nitrogen, blood 20 mg/dL [facility] 6-24 08/09 blood glucose, random 87 mg/dL [facility] 65-99 07/06 coagulation managed by Jericho Cooley RN 07/06 international normalized ratio (INR) 1.8 Denyean Trinidad 07/06 prothrombin time (patient) 18.4 s Denyean Trinidad 06/09 coagulation managed by Jericho Cooley RN 06/09 international normalized ratio (INR) 2.1 Amilcar Manacop 06/09 prothrombin time (patient) 21.1 s Amilcar Manacop 05/26 coagulation managed by Jericho Cooley RN 05/26 international normalized ratio (INR) 2.3 Denyean Trinidad 05/26 prothrombin time (patient) 23.4 s Denyean Trinidad 05/12 coagulation managed by Jericho Cooley RN 05/12 international normalized ratio (INR) 2.6 Jericho Cooley RN 05/12 prothrombin time (patient) 26.4 s Jericho Cooley RN 05/11 calcium, serum 8.9 mg/dL [facility] 8.7-10.2 05/11 carbon dioxide, venous blood 23 mmol/L [facility] 20-32 05/11 chloride, serum 104 mmol/L [facility] 97-108 05/11 potassium, serum 4.3 mmol/L [facility] 3.5-5.2 05/11 sodium, serum 138 mmol/L [facility] [phone]/0 1/24 urea nitrogen/creatinin e ratio, serum 30 [facility] 9-23 High 05/11 eGFR if 92 mL/min/{1.73 _m2} [facility] >59 05/11 eGFR if not 80 mL/min/{1.73 _m2} [facility] >59 05/11 creatinine, serum 0.83 mg/dL [facility] 0.57-1.00 05/11 urea nitrogen, blood 25 mg/dL [facility] 6-24 High 05/11 blood glucose, random 97 mg/dL [facility] 65-99 05/03 coagulation managed by Jericho Cooley RN 05/03 international normalized ratio (INR) 2.1 Amilcar Hemphill 05/03 prothrombin time (patient) 21.4 s Amilcar Hemphill 04/20 coagulation managed by Jericho Cooley RN 04/20 international normalized ratio (INR) 1.7 Srinath Trinidad 04/20 prothrombin time (patient) 16.8 s Srinath Trinidad carbon dioxide, venous blood 25 mmol/L [facility] 20-32 chloride, serum 102 mmol/L [facility] 97-108 potassium, serum 3.8 mmol/L [facility] 3.5-5.2 sodium, serum 140 mmol/L [facility] [phone]/1 2/29 urea nitrogen/creatinin e ratio, serum 26 [facility] 9-23 High eGFR if 81 mL/min/{1.73 _m2} [facility] >59 eGFR if not 70 mL/min/{1.73 _m2} [facility] >59 creatinine, serum 0.92 mg/dL [facility] 0.57-1.00 urea nitrogen, blood 24 mg/dL [facility] 6-24 blood glucose, random 79 mg/dL [facility] 65-99 06/06 coagulation managed by Jericho Cooley RN 06/06 international normalized ratio (INR) 2.4 Amilcar Manacop 06/06 prothrombin time (patient) 24.4 s Amilcar Manacopaz 05/30 coagulation managed by Jericho Cooley RN 05/30 international normalized ratio (INR) 2.9 Amilcar Manacopaz 05/30 prothrombin time (patient) 29.3 s Amilcar Manacop 05/26 calcium, serum 8.9 mg/dL [facility] (8.7-10.2) 05/26 carbon dioxide, venous blood 22 mmol/L [facility] (20-32) 05/26 chloride, serum 101 mmol/L [facility] (97-108) 05/26 potassium, serum 3.4 mmol/L [facility] (3.5-5.2) Low 05/26 sodium, serum 138 mmol/L [facility] (135-145) 05/26 urea nitrogen/creatinin e ratio, serum 21 [facility] (9-23) 05/26 eGFR if 74 mL/min/{1.73 _m2} [facility] ( >59) 05/26 eGFR if not 64 mL/min/{1.73 _m2} [facility] ( >59) 05/26 creatinine, serum 0.99 mg/dL [facility] (0.57-1.00 ) 05/26 urea nitrogen, blood 21 mg/dL [facility] (6-24) 05/26 blood glucose, random 111 mg/dL [facility] (65-99) High 05/23 coagulation managed by Jericho Cooley RN 05/23 international normalized ratio (INR) 3.3 Srinath Trinidad 05/23 prothrombin time (patient) 32.5 s Srinath Ramirezran 05/15 coagulation managed by Jericho Cooley RN 05/15 international normalized ratio (INR) 2.9 Amilcar Manacop 05/15 prothrombin time (patient) 29.2 s Amilcar Manacop 05/05 coagulation managed by Jericho Cooley RN 05/05 international normalized ratio (INR) 2.5 Jericho Cooley RN 05/05 prothrombin time (patient) 25.3 s Jericho Cooley RN 04/25 prothrombin time (patient) 22.1 s Lyric Lagunas 04/25 international normalized ratio (INR) 1.95 Lyric Lagunas 04/24 triglyceride, serum, fasting 85 mg/dL earle Lagunas 04/24 HDL cholesterol, serum 64 mg/dL earle Lagunas 04/24 LDL cholesterol, serum 152 mg/dL earle Lagunas 04/24 cholesterol, serum 233 mg/dL earle Lagunas 04/24 anion gap, serum 9 Bebo 04/24 Estimated Glomerular Filtration Rate (calc) >90 earle Lagunas 04/24 calcium, serum 8.7 mg/dL earle Lagunas 04/24 blood glucose, fasting 95 mg/dL earle Lagunas 04/24 creatinine, serum 0.65 mg/dL earle Lagunas 04/24 urea nitrogen, blood 14 mg/dL earle Lagunas 04/24 carbon dioxide, serum, total 28 mmol/L earle Lagunas 04/24 chloride, serum 105 mmol/L earle Lagunas 04/24 potassium, serum 3.7 mmol/L 04/24 sodium, serum 138 mmol/L earle Lagunas 04/24 platelet count 176 10*3/uL earle Lagunas 04/24 red blood cell distribution width 14.0 % [facility] 04/24 mean corpuscular hemoglobin concentration, RBC 33.3 g/dL [facility] 04/24 mean corpuscular hemoglobin, RBC 30.1 pg [facility] 04/24 mean corpuscular volume, RBC 90.4 fL [facility] 04/24 hematocrit, blood 41.5 % [facility] 04/24 hemoglobin, blood 13.8 g/dL [facility] 04/24 erythrocyte (RBC) count 4.59 10*6/mm3 [facility] 04/24 leukocyte count, blood 4.5 10*3/mm3 [facility] 04/28 international normalized ratio (INR) 3.7 [facility] 04/28 prothrombin time (patient) 36.8 s [facility] 01/12 prothrombin time (patient) 27.4 s [facility] 01/12 international normalized ratio (INR) 2.59 [facility] 01/07 PTT patient 35.5 s [facility] 01/07 prothrombin time (patient) 19.9 s [facility] 01/07 international normalized ratio (INR) 1.69 [facility] 01/07 protein, total, serum 6.4 g/dL [facility] 01/07 albumin, serum 3.3 g/dL [facility] 01/07 bilirubin, serum, total 0.76 mg/dL [facility] 01/07 alkaline phosphatase, serum 85 1/L [facility] 01/07 alanine aminotransferase (SGPT), serum 13 1/L [facility] 01/07 aspartate aminotransferase (SGOT), serum 16 1/L [facility] 01/07 calcium, serum 8.4 mg/dL [facility] 01/07 blood glucose, fasting 86 mg/dL [facility] 01/07 creatinine, serum 0.71 mg/dL [facility] 01/07 urea nitrogen, blood 15 mg/dL [facility] 01/07 carbon dioxide, serum, total 31 mmol/L [facility] 01/07 chloride, serum 100 mmol/L 01/07 potassium, serum 4.0 mmol/L [facility] 01/07 sodium, serum 136 mmol/L 01/07 erythrocyte sedimentation rate 8 mm/h banner01/07 anion gap, serum 9.0 banner01/07 globulins, serum, total 3.1 g/dL [facility] 01/07 Estimated Glomerular Filtration Rate (calc) 86 mL/min/{1.73 _m2} [facility] 01/07 platelet count 185 10*3/uL [facility] 01/07 red blood cell distribution width 13.2 % [facility] 01/07 mean corpuscular hemoglobin concentration, RBC 33.4 g/dL [facility] 01/07 mean corpuscular hemoglobin, RBC 30.1 pg [facility] 01/07 mean corpuscular volume, RBC 90.0 fL [facility] 01/07 hematocrit, blood 42.5 % [facility] 01/07 hemoglobin, blood 14.2 g/dL [facility] 01/07 erythrocyte (RBC) count 4.72 10*6/mm3 [facility] 01/07 monocyte count, blood 0.32 10*3/mm3 [facility] 01/07 lymphocyte count, blood 1.24 10*3/mm3 [facility] 01/07 monocytes as percent of blood leukocytes 8.7 % [facility] 01/07 lymphocytes as percent of blood leukocytes 33.7 % [facility] 01/07 leukocyte count, blood 3.68 10*3/mm3 [facility] 01/11 coagulation managed by Jericho Cooley RN 01/11 international normalized ratio (INR) 2.4 Amilcar Hemphill 01/11 prothrombin time (patient) 23.9 s Amilcar Hemphill 01/07 coagulation managed by Jericho Cooley RN 01/07 international normalized ratio (INR) 1.9 Jericho Cooley RN 01/07 prothrombin time (patient) 18.6 s Jericho Cooley RN 01/04 coagulation managed by Jericho Cooley RN 01/04 international normalized ratio (INR) 1.9 Denyegennaro Trinidad 01/04 prothrombin time (patient) 18.7 s Denyegennaro Trinidad 12/30 coagulation managed by Jericho Cooley RN 12/30 international normalized ratio (INR) 5.1 Denyegennaro Trinidad 12/30 prothrombin time (patient) 50.6 s Denyean Trinidad 12/23 international normalized ratio (INR) 1.9 Esperanza Blunt 12/23 prothrombin time (patient) 18.5 s Esperanza Blunt 04/29 alanine aminotransferase (SGPT), serum 10 1/L [facility] 6-40 Normal 04/29 aspartate aminotransferase (SGOT), serum 13 1/L [facility] 10-35 Normal 04/29 alkaline phosphatase, serum 114 1/L [facility] 33-130 Normal 04/29 bilirubin, serum, total 0.7 mg/dL [facility] 0.2-1.2 Normal 04/29 albumin/globulin ratio, serum 1.5 (calc) [facility] 1.0-2.1 Normal 04/29 globulins, serum, total 2.7 G/DL (CALC) [facility] 2.2-3.9 Normal 04/29 albumin, serum 4.1 g/dL [facility] 3.6-5.1 Normal 04/29 protein, total, serum 6.8 g/dL [facility] 6.2-8.3 Normal 04/29 calcium, serum 8.9 mg/dL [facility] 8.6-10.2 Normal 04/29 carbon dioxide, venous blood 27 mmol/L [facility] 21-33 Normal 04/29 chloride, serum 103 mmol/L [facility] 98-110 Normal 04/29 potassium, serum 3.9 mmol/L [facility] 3.5-5.3 Normal 04/29 sodium, serum 140 mmol/L [facility] 135-146 Normal 04/29 urea nitrogen/creatinin e ratio, serum NOT APPLICABLE (calc) [facility] 6-22 04/29 Estimated Glomerular Filtration Rate (calc) >60 mL/min/1.73m 2 [facility] > OR = 60 Normal 04/29 creatinine, serum 0.94 mg/dL [facility] 0.60-1.10 Normal 04/29 urea nitrogen, blood 19 mg/dL [facility] 7-25 Normal 04/29 blood glucose, random 99 mg/dL [facility] 65-99 Normal 04/29 thyroid stimulating hormone, serum 1.58 u[IU]/mL [facility] Normal 04/29 free thyroxine index 3.7 [facility] 1.4-3.8 Normal 04/29 thyroxine, serum, total 11.5 ug[facility] 4.5-12.5 Normal 04/29 triiodothyronine resin uptake 32 % [facility] 22-35 Normal 04/29 cholesterol/HDL ratio, serum, percent 3.6 (calc) [facility] Normal 04/29 LDL cholesterol, serum 106 MG/DL (CALC) [facility] <130 Normal 04/29 triglyceride, serum, fasting 156 mg/dL [facility] <150 High 04/29 HDL cholesterol, serum 52 mg/dL [facility] > OR = 46 Normal 04/29 cholesterol, serum 189 mg/dL [facility]200 Normal 08/27 albumin/globulin ratio, serum 1.3 [facility] 08/27 protein, total, serum 6.6 g/dL [facility] 08/27 albumin, serum 3.7 g/dL [facility] 08/27 bilirubin, serum, total 0.4 mg/dL [facility] 08/27 alkaline phosphatase, serum 142 1/L [facility] 08/27 alanine aminotransferase (SGPT), serum 9 1/L [facility] 08/27 aspartate aminotransferase (SGOT), serum 8 1/L [facility] 08/27 calcium, serum, ionized 9.0 mg/dL [facility] 08/27 blood glucose, fasting 97 mg/dL [facility] 08/27 creatinine, serum 0.68 mg/dL Erica 08/27 urea nitrogen, blood 26 mg/dL Erica 08/27 carbon dioxide, serum, total 25 mmol/L Erica 08/27 chloride, serum 98 mmol/L Erica 08/27 potassium, serum 4.0 mmol/L Erica 08/27 sodium, serum 136 mmol/L Erica 08/27 triglyceride, serum, fasting 142 mg/dL Erica 08/27 HDL cholesterol, serum 64 mg/dL Erica 08/27 LDL cholesterol, serum 125 mg/dL Erica 08/27 cholesterol, serum 217 mg/dL Erica Galileo HISTORY OF MEDICATION USE Medication Status Instructions Dates Provider Indications Com ments meclizine 25 mg tablet active Take 1 tablet by mouth three times daily as needed 05/12 Johanna Kwon Medrol (Matthew) 4 mg tablets,dose pack active Take 1 mg by mouth as directed Per package instructions 06/08 Yuki Burch RN potassium chloride 20 mEq tablet,ER particles/crystals active Take 1 tablet by mouth once daily 06/07 Mariana Pfeiffer furosemide 20 mg tablet active TAKE 1 TABLET BY MOUTH ONCE DAILY NEEDED 06/07 Mariana Pfeiffer lisinopril 40 mg tablet active Take 1 tablet by mouth once daily 05/29 [facility]rick [facility] Percocet 5-325 mg tablet completed Take 1 tablet by mouth every eight hours as needed for pain do not drive or use any machinery for 12 hours after taking this medication 05/22 - 05/29 Kenan Thakkar MD cephalexin 500 mg capsule active Take 1 capsule by mouth three times a day Kenan Thakkar MD spironolactone 25 mg tablet active Take 1 tablet by mouth once daily Rodrick Jo potassium chloride 20 mEq tablet,ER particles/crystals completed TAKE 1 BY MOUTH ONCE DAILY 01/10 - 06/07 Mariana Pfeiffer Cleocin HCl 150 mg capsule active Take 1 capsule by mouth three times a day 12/03 Jessica Napier NP levofloxacin 500 mg tablet active Take 1 tablet by mouth once a day Take 1 tablet by mouth once daily 12/03 Jessica Napier [employer] methylprednisolone 4 mg tablets,dose pack completed follow instructions on box 12/03 - 06/08 Yuki Burch RN sotalol 80 mg tablet active TAKE 1 TABLET BY MOUTH TWICE A DAY 11/23 Jericho Cooley RN sotalol 80 mg tablet completed TAKE 1/2 TABLET BY MOUTH TWICE A DAY WITH FOOD 10/14 - 11/23 Mariana Pfeiffer potassium chloride 20 mEq tablet,ER particles/crystals completed Take 1 tablet by mouth once daily 09/30 - 01/10 [facility] atorvastatin 80 mg tablet active Take 1 tablet by mouth once a day TAKE ONE TABLET BY MOUTH DAILY 07/29 Ryanne Yoon fludrocortisone 0.1 mg tablet active Take 1 tablet by mouth three times a day TAKE 1 TABLET BY MOUTH THREE TIMES DAILY 07/08 Ryanne Yoon lisinopril 40 mg tablet completed TAKE ONE TABLET BY MOUTH DAILY 06/02 - 05/29 [facility] 20 mEq tablet,ER particles/crystals completed TAKE ONE TABLET BY MOUTH EVERY DAY 05/25 - 09/30 Renee Shepherd sotalol 80 mg tablet completed TAKE 1/2 TABLET BY MOUTH TWICE A DAY WITH FOOD DIRECTED 10/13 - 10/14 Renee Shepherd Aldactone 25 mg tablet completed TAKE 1 TABLET BY MOUTH DAILY 08/05 - [facility] amlodipine 10 mg tablet active Monse Vikash alendronate 70 mg tablet completed - 11/25 Yadira Márquez Gemtesa 75 mg tablet active Monse [place] fludrocortisone 0.1 mg tablet completed TAKE 1 TABLET BY MOUTH THREE TIMES DAILY 05/13 - 07/08 Ryanne Yoon atorvastatin 80 mg tablet completed TAKE ONE TABLET BY MOUTH DAILY 05/03 - 07/29 Ryanne Yoon sotalol 80 mg tablet completed TAKE 1/2 TABLET BY MOUTH TWICE A DAY 06/15 - 10/13 Jose High RN potassium chloride 20 mEq tablet,ER particles/crystals completed TAKE 1 TABLET BY MOUTH EVERY DAY 05/06 - 05/25 Maryjane Mejia lisinopril 40 mg tablet completed TAKE ONE TABLET BY MOUTH DAILY 12/23 - 12/18 Ariel Ellis meclizine 25 mg tablet completed TAKE ONE TABLET BY MOUTH 3 TIMES A DAY NEEDED 12/04 - 11/[facility] mg tablet active Take 1 tablet once a week 12/11 Marcy Donis meclizine 25 mg tablet completed Take 1 tablet by mouth three times a day as needed 06/08 - 12/04 Arelynavid aJylan Percocet 5-325 mg tablet completed Take 1 tablet every four hours as needed 05/28 - 11/25 [facility]adiraosvaldo Hern[facility] Xanax 0.25 mg tablet completed 1 tablet as needed 05/01 - 11/[address] [facility] AREDS [id number] tablet,delayed release (/EC) active Take 2 once a day 04/25 Madhuri Ag lisinopril 40 mg tablet completed Take 1 tablet by mouth once a day 09/22 - 12/23 Ariel Ellis atorvastatin 80 mg tablet completed Take 1 tablet by mouth once a day 05/13 - 05/03 Rhianna Centeno RN Vesicare 5 mg tablet completed once a day - 11/25 [facility] chloride 20 mEq tablet,ER particles/crystals completed Take 1 tablet by mouth once a day 05/05 - 05/06 Amanda Greenwood fludrocortisone 0.1 mg tablet completed Take 1 tablet by mouth three times a day 05/25 - 05/13 Alfredo Powell LYRICA 200 MG ORAL CAPSULE completed 1 tab twice daily - 11/24 Rodolfo High KEFLEX 500 MG ORAL CAPSULE completed One cap four times daily for 2 weeks. 04/30 - 12/19 Kenan Thakkar MD PERCOCET 5-325 MG ORAL TABLET completed One tab every 6 hours for pain. 04/30 - 05/16 Kenan Thakkar MD VOLTAREN 1 % TRANSDERMAL GEL completed apply three times daily 06/10 - 11/24 Aneatrkiara High Eliquis 5 mg tablet active Take 1 table t twice a day 06/26 Zaria Dunaway MULTIVITAMINS CAPS active 1 tablet once a day Jericho Cooley RN GLUCOSAMINE-CHONDRO ITIN-MSM TABLET completed daily - 11/24 Aneatrkiara High CALCIUM + D TABLET active 600 mg once a day Jericho Cooley RN Celebrex 200 mg capsule active twice a day Jericho Cooley RN AMBIEN 5 MG ORAL TABLET completed ONE TAB. AT BEDTIME - 06/07 Jericho Cooley RN sotalol 80 mg tablet completed Take 0.5 tablet by mouth twice a day 09/08 - 06/15 Nhung lucas amiodarone COUMADIN 2 MG ORAL TABLET completed one tab daily - 10/10 Miranda Mazariegos RN XARELTO 10 MG ORAL TABLET completed One tab. daily 06/07 - 06/19 Jericho Cooley RN Lasix 20 mg tablet completed TAKE 1 TABLET BY MOUTH EVERY DAY NEEDED - 06/07 Mariana Pfeiffer ZITHROMAX PACKET completed TAKE INSTRUCTED. 05/01 - 05/05 Jericho Cooley RN SPIRONOLACTONE 50 MG ORAL TABLET completed ONE TAB. DAILY - 06/10 Kenan Thakkar MD LISINOPRIL 10 MG ORAL TABLET completed ONE TAB. DAILY AT BEDTIME 04/26 - 06/10 Kenan Thakkar MD WARFARIN SODIUM 2 MG ORAL TABLET completed 1 full tab dialy with 1/2 tab of your 5mg tab to equal your new daily dose of 4.5mg start on 02/27/1104/29 - 05/15 Jericho Cooley RN AMIODARONE HCL 200 MG ORAL TABLET completed two TAB twice DAILY for 10 days , then one tablet once daily 04/25 - 05/07 Lucho Bolton MD WARFARIN SODIUM 5 MG ORAL TABLET completed 1 tab daily as of 02/23; next INR checks on 02/26 & 03/05 - 05/23 Jericho Cooley RN FLECAINIDE ACETATE 150 MG ORAL TABLET completed 1/2 tab twice daily - 04/19 Lucho Bolton MD magnesium oxide 400 mg (241.3 mg magnesium) tablet active 1 tablet by mouth once a day Madhuri Ag ENABLEX 7.5 MG ORAL TABLET EXTENDED RELEASE 24 HOUR completed 1 tablet by mouth daily - 11/24 Cherie Aki FLECAINIDE ACETATE 50 MG ORAL TABLET completed one tablet twice daily 01/12 - Lucho Bolton MD COUMADIN 5 MG ORAL TABLET completed 1 and 1/2 tab daily as of 12/23 - 01/12 Lucho Bolton MD ZITHROMAX Z-MATTHEW 250 MG ORAL TABLET completed as directed on package 05/13 - 11/24 Shima CARRILLO completed 3 times daily for irritable - 04/26 Miranda Niño RN CARVEDILOL 25 MG ORAL TABLET completed twice daily 05/28 - 10/29 Jericho Cooley RN COREG CR 80 MG ORAL CAPSULE EXTENDED RELEASE 24 HOUR completed ONE TAB. DAILY--on hold till 03/05/1104/26 - 05/07 Erica Gurrola ATORVASTATIN CALCIUM 40 MG ORAL TABLET completed One tab daily 06/10 - 08/26 Jeremías Richard meclizine 25 mg tablet,chewable completed three times a day as needed 07/09 - 11/25 Yadira Márquez MULTAQ 400 MG ORAL TABLET completed ONE TAB WITH MORNING MEAL. ONE TAB WITH EVENING MEAL. 04/28 - 12/16 Erica Gurrola METOPROLOL TARTRATE 50 MG ORAL TABLET completed one tab. twice daily 05/23 - 06/19 Kenan Thakkar MD GLUCOSAMINE-CHONDRO ITIN-MSM CAPSULE completed TAKE ONE CAPSULE DAILY - 04/26 Miranda Niño RN COREG CR 80 MG ORAL CAPSULE EXTENDED RELEASE 24 HOUR completed ONE TAB. DAILY 06/19 - 05/28 Erica Gurrola CELEBREX 200 MG ORAL CAPSULE completed TAKE ONE CAPSULE DAILY - 04/26 Miranda Niño RN SIMVASTATIN 40 MG ORAL TABLET completed 1 tablet by mouth once daily - 08/28 Miranda Niño RN estradiol 1 mg tablet active 1.5 mg once a day Jennifer Vazquez omeprazole 40 mg capsule,delayed release(DR/EC) active once a day 04/25 Madhuri Ag EFFEXOR XR 150 MG ORAL CAPSULE EXTENDED RELEASE 24 HOUR completed TAKE ONE TABLET DAILY - 10/29 Jericho Cooley RN Ultram 50 mg tablet active Take 1 table t twice a day Madhuri Ag SOCIAL HISTORY Date Observation Value Provider drug use no Kenan Thakkar MD alcohol use, average drinks per day <1 Kenan Thakkar MD alcohol use yes Kenan Thakkar MD passive cigarette sm [place] exposure no Kenan Thakkar MD smoking status Never smoker Kenan Yoder drug use no Sebastian Scooter alcohol use, average drinks per day <1 Sebastian Scooter alcohol use yes Sebastian Scooter passive cigarette sm [place] exposure no Sebastian Scooter smoking status Never smoker Sebastian Newman or drug use no Sebastian Scooter alcohol use, average drinks per day <1 Sebastian Scooter alcohol use yes Sebastian Scooter passive cigarette sm [place] exposure no Sebastian Scooter smoking status Never smoker [place] Newman or physical exercise, f requency, days per week no Kenan Thakkar MD caffeine use, averag e drinks per day 1+ Kenan Thakkar MD passive cigarette sm [place] exposure no Kenan Thakkar MD smoking status Never smoker Kenan Yoder social history reviewed E&M xena taylor - no changes required Kenan Thakkar MD smoking status Never smoker Jessica Moses meme HUIZAR smoking status Never smoker Johanna Kwon social history E&M Marital Statu s: L kuldeep with family/friends E thnicity: Smoking History: P atdomingo has never smoked. Orlin Macario MD physical exercise, f requency, days per week no Orlin Macario MD caffeine use, averag e drinks per day 1+ Orlin Macario MD passive cigarette sm [place] exposure no Orlin Macario MD smoking status Never smoker Orlin Yoder social history reviewed E&M revi ewed - no changes required Orlin Macario MD physical exercise, f requency, days per week no Kenan Thakkar MD caffeine use, averag e drinks per day 1+ Kenan Thakkar MD passive cigarette sm [place] exposure no Kenan Thakkar MD smoking status Never smoker Kenan Yoder social history reviewed E&M revi ewed - no changes required Kenan Thakkar MD social history E&M Marital Statu s: L kuldeep with family/friends E thnicity: Smoking History: P atdomingo has never smoked. Kenan Thakkar MD social history reviewed E&M revi ewed - no changes required Kenan Thakkar MD physical exercise, f requency, days per week no Kymberly Dyer caffeine use, averag e drinks per day 1+ Kymberly Dyer passive cigarette sm [place] exposure no Kymberly Dyer smoking status Never smoker Kymberly Dyer social history E&M Marital Statu s: L kuldeep with family/friends E thnicity: Smoking History: P atdomingo has never smoked. Kenan Thakkar MD social history reviewed E&M revi ewed - no changes required Kenan Thakkar MD smoking status Never smoker Batsheva Ibarra social history E&M Marital Statu s: L kuldeep with family/friends E thnicity: Smoking History: Paz choi has never smoked. Bre Robert social history reviewed E&M revi ewed - no changes required Bre Robert physical exercise, f requency, days per week no Chastity Krystyna caffeine use, averag e drinks per day 1+ Chastity Krystyna passive cigarette sm [place] exposure no Chastity Krystyna smoking status Never smoker Chastity Hogu e social history E&M Marital Statu s: L kuldeep with family/friends E thnicity: Smoking History: Paz choi has never smoked. Kenan Thakkar MD social history reviewed E&M i ewed - no changes required Kenan Thakkar MD physical exercise, f requency, days per week no Monse [place] caffeine use, averag e drinks per day 1+ Monse [place] passive cigarette sm [place] exposure no Monse [place] smoking status Never smoker Monse Suni s social history E&M Marital Statu s: L kuldeep with family/friends E thnicity: Smoking History: Paz choi has never smoked. Kenan Thakkar MD social history reviewed E&M revuri ewed - no changes required Kenan Thakkar MD physical exercise, f requency, days per week no Madhuri Ag caffeine use, averag e drinks per day 1+ Madhuri Ag passive cigarette sm [place] exposure no Madhuri Ag smoking status Never smoker Madhuri an physical exercise, f requency, days per week no Jeremías Richard caffeine use, averag e drinks per day 1+ Jeremías Richard passive cigarette sm [place] exposure no Jeremías Richard smoking status Never smoker Jeremías mauro social history reviewed E&M xena ewed - no changes required Jeremías Richard social history reviewed E&M xena ewed - no changes required Jeremías Richard physical exercise, f requency, days per week no Marcy Donis caffeine use, averag e drinks per day 1+ Marcy Gagandeep passive cigarette sm [place] exposure no Marcy Donis smoking status Never smoker Marcy Farr terry social history reviewed E&M xena ewed - no changes required Kenan Thakkar MD physical exercise, f requency, days per week no [facility] caffeine use, averag e drinks per day 1+ Tonsha Avila passive cigarette sm [place] [facility] social history reviewed E&M revi ewed - no changes required Kenan Thakkar MD physical exercise, f requency, days per week no Maggi O'Andre alcohol use, average drinks per day <1 Maggi O'Andre alcohol use yes Maggi O'Nadre caffeine use, averag e drinks per day 1+ Maggi O'Andre drug use no Maggi O'Andre passive cigarette sm [place] exposure no Maggi O'Andre smoking status Never smoker Maggi O'Andre social history reviewed E&M revuri ewed - no changes required Kenan Thakkar MD physical exercise, f requency, days per week no Chastity Krystyna alcohol use, average drinks per day <1 Chastity Krystyna alcohol use yes Chastity Krystyna caffeine use, averag e drinks per day 1+ Chastity Krystyna drug use no Chastity Krystyna passive cigarette sm [place] exposure no Chastity Krystyna smoking status Never smoker Amanda Abdalla e social history reviewed E&M revi ewed - no changes required Kenan Thakkar MD physical exercise, f requency, days per week no Kristie Sedrick alcohol use, average drinks per day <1 Jeremías Richard alcohol use yes Kristie Sedrick caffeine use, averag e drinks per day 1+ Kristie Sedrick drug use no Kristie Sedrick passive cigarette sm chap[place] exposure no Kristie Sedrick smoking status Never smoker [facility] physical exercise, f requency, days per week no Kenan Thakkar MD alcohol use, average drinks per day none Kenan Thakkar MD alcohol use yes Kenan Thakkar MD caffeine use, averag e drinks per day 1+ Kenan Thakkar MD drug use no Kenan Thakkar MD passive cigarette sm [place] exposure no Kenan Thakkar MD smoking status Never smoker Kenan Yoder social history reviewed E&M revi ewed - no changes required Kenan Thakkar MD smoking status Never smoker Kenan Yoder social history reviewed E&M revi ewed - no changes required Kenan Thakkar MD physical exercise, f requency, days per week no Madhuri Ag caffeine use, averag e drinks per day 1+ Kenan Thakkar MD drug use no Madhuri rolon passive cigarette sm [place] exposure no Madhuri Ag number of grandchildren Kenan [place] social history reviewed E&M revi ewed - no changes required Seble [place] social history reviewed E&M revi ewed - no changes required Kenan Thakkar MD social history E&M Marital Statu s: Shahram light with family/friends E thnicity: Smoking History: Paz choi has never smoked. Kenan Thakkar MD physical exercise, f requency, days per week no Jennifer Vazquez alcohol use, average drinks per day none Jennifer Vazquez alcohol use yes Jennifer Devine nson caffeine use, averag e drinks per day yes Jennifer Vazquez drug use no Jennifer Magallanese zoraon passive cigarette sm [place] exposure no Jennifer Vazquez smoking status Never smoker Jennifer Cruz mateo social history reviewed E&M revi ewed - no changes required Kenan Thakkar MD social history reviewed E&M revuri ewed - no changes required Kenan Thakkar MD physical exercise, f requency, days per week no Jennifer Magallanesenson alcohol use, average drinks per day none Jennifer Vazquez alcohol use yes Jennifer Devine manuel caffeine use, averag e drinks per day yes Jennifer Vazquez drug use no Jennifer Devine manuel passive cigarette sm chap[place] exposure no Jennifer Vazquez smoking status Never smoker Jennifer Cruz mateo social history E&M Marital Statu s: Shahram light with family/friends E thnicity: Smoking History: Paz choi has never smoked. Kenan Thakkar MD social history reviewed E&M revi ewed - no changes required Kenan Thakkar MD physical exercise, f requency, days per week no Jennifer Vazquez alcohol use, average drinks per day none JenniferAmairani Vazquez caffeine use, averag e drinks per day yes Jennifer Vazquez drug use no Jennifer Devine manuel passive cigarette sm [place] exposure no Jennifer Vazquez smoking status Never smoker Jennifer Cruz mateo physical exercise, f requency, days per week no Kenan Thakkar MD alcohol use, average drinks per day none Kenan Thakkar MD caffeine use, averag e drinks per day yes Kenan Thakkar MD drug use no Kenan Thakkar MD passive cigarette sm [place] exposure no Kenan Thakkar MD smoking status Never smoker Kenan Yoder social history reviewed E&M revi ewed - no changes required Kenan Thakkar MD social history reviewed E&M revuri ewed - no changes required Kenan Thakkar MD social history reviewed E&M reviewed Kenan Thakkar MD social history reviewed E&M reviewed Jericho Cooley RN social history reviewed E&M reviewed Esperanza [place] social history reviewed E&M reviewed Jericho Cooley RN social history reviewed E&M reviewed Jericho Cooley RN drug use no Jericho Cooley RN social history reviewed E&M reviewed Jericho Cooley RN smoking status never smoker Jericho Cooley RN passive cigarette sm [place] exposure no Lucho Bolton MD social history reviewed E&M reviewed Jericho Cooley RN social history reviewed E&M reviewed Jericho Cooley RN social history reviewed E&M reviewed Jericho Cooley RN social history reviewed E&M reviewed Jericho Cooley RN drug use none Lucho craig MD social history reviewed E&M reviewed Lucho Bolton MD handedness R Handed Lucho craig MD social history reviewed E&M reviewed Kenan Thakkar MD social history reviewed E&M reviewed Jericho Cooley RN social history reviewed E&M reviewed Jericho Cooley RN social history reviewed E&M reviewed Jericho Cooley RN social history E&M Marital Statu s: L kuldeep with family/friends E thnicity: Kenan Thakkar MD social history reviewed E&M reviewed Jericho Cooley RN social history E&M Marital Statu s: L kuldeep with family/friends E thnicity: Kenan Thakkar MD social history reviewed E&M reviewed Jericho Cooley RN social history E&M Marital Statu s: L kuldeep with family/friends E thnicity: Kenan Thakkar MD physical exercise, f requency, days per week no [employer] caffeine use, averag e drinks per day yes [employer] alcohol use, average drinks per day none [employer] smoking status Non-smoker [facility] MENTAL STATUS Date Observation Value Provider assessment of judgme nt and insight E&M Alert and oriented to time, place and person. Mood and affect are normal. Kenan Thakkar MD assessment of judgme nt and insight E&M Alert and oriented to time, place and person. Mood and affect are normal. Jericho Cooley RN assessment of judgme nt and insight E&M Alert and oriented to time, place and person. Mood and affect are normal. Jericho Cooley RN assessment of judgme nt and insight E&M Alert and oriented to time, place and person. Mood and affect are normal. Jericho Cooley RN assessment of judgme nt and insight E&M Alert and oriented to time, place and person. Mood and affect are normal. Jericho Cooley RN assessment of judgme nt and insight E&M Alert and oriented to time, place and person. Mood and affect are normal. Jericho Cooley RN assessment of judgme nt and insight E&M Alert and oriented to time, place and person. Mood and affect are normal. Jericho Cooley RN assessment of judgme nt and insight E&M Alert and oriented to time, place and person. Mood and affect are normal. Jericho Cooley RN assessment of judgme nt and insight E&M Alert and oriented to time, place and person. Mood and affect are normal. Jericho Cooley RN assessment of judgme nt and insight E&M Alert and oriented to time, place and person. Mood and affect are normal. Lucho Bolton MD assessment of judgme nt and insight E&M Alert and oriented to time, place and person. Mood and affect are normal. Kenan Thakkar MD assessment of judgme nt and insight E&M Alert and oriented to time, place and person. Mood and affect are normal. Kenan Thakkar MD assessment of judgme nt and insight E&M Alert and oriented to time, place and person. Mood and affect are normal. Jericho Cooley RN assessment of judgme nt and insight E&M Alert and oriented to time, place and person. Mood and affect are normal. Jericho Cooley RN assessment of judgme nt and insight E&M Alert and oriented to time, place and person. Mood and affect are normal. Kenan Thakkar MD assessment of judgme nt and insight E&M Alert and oriented to time, place and person. Mood and affect are normal. Jericho Cooley RN assessment of judgme nt and insight E&M Alert and oriented to time, place and person. Mood and affect are normal. Jericho Cooley RN assessment of judgme nt and insight E&M Alert and oriented to time, place and person. Mood and affect are normal. Kenan Thakkar MD assessment of judgme nt and insight E&M Alert and oriented to time, place and person. Mood and affect are normal. Jericho Cooley RN assessment of judgme nt and insight E&M Alert and oriented to time, place and person. Mood and affect are normal. Kenan Thakkar MD FAMILY HISTORY Family Member Condition Father IA male <55 Full Brother Family History of Hy pertension: Father Family History of Hy pertension: Father Family History of Di abetes: INSURANCE PROVIDERS Payer name Policy type / Coverage type Cristin red libertarian ID [facility] [id number] [place] [employer] Medicare [id number] ADVANCE DIRECTIVES Name Date DISCUSSED - NO DECISION MADE TREATMENT PLAN Date Name Performer [id number],Sebastian Trivedi [id number],S,T he patient is using CPAP on a regular basis. The patient has been benefiting from therapy and should continue use. Sebastian Helms [id number],W,P t had a presyncopal episode last week with no recording on her loop recorder. We thoroughly reviewed her transmissions and we did not see any episodes of bradycardia and we will cancel pacemaker implant at this time. Sebastian Helms [id number],S,S he did have a few episodes of Afib with RVR and we will increase sotalol back to BID. We will provide her with activator device for loop recorder so she can record episodes of sx on eliquis Her updated medication list for this problem includes: Sotalol 80 Mg Tablet (Sotalol) ..... Take 1 tablet by mouth twice a day Sebastian Helms [id number],S,C HOL: 159 (11/18/2022) LDL: 78 MG/DL (CALC) (11/18/2022) HDL: 64 (11/18/2022) T (11/18/2022) Her updated medication list for this problem includes: Atorvastatin 80 Mg Tablet (Atorvastatin) ..... Take 1 tablet by mouth once a day take one tablet by mouth daily Kenan Thakkar MD [id number],S, B P today: 135/86 P rior BP: 122/80 (12/17/2022) Labs Reviewed: C reat: 0.72 (12/25/2022) C hol: 159 (11/18/2022) HDL: 64 (11/18/2022) LDL: 78 MG/DL (CALC) (11/18/2022) T (11/18/2022) Her updated medication list for this problem includes: Sotalol 80 Mg Tablet (Sotalol) ..... Take 1/2 (one-half) tablet by mouth daily with food Lisinopril 40 Mg Tablet (Lisinopril) ..... Take one tablet by mouth daily Aldactone 25 Mg Tablet (Spironolactone) ..... Take 1 tablet by mouth daily Lasix 20 Mg Tablet (Furosemide) ..... Take 1 tablet by mouth every day as needed Amlodipine 10 Mg Tablet (Amlodipine) Kenan Thakkar MD [id number],C,l ast remote 11/29 check: AF x3, longest 3 hrs 53 min, HVR x3. AF RVR ~175-200 bpm. longest 8 sec. no changes, normal fx Jessica Napier NP [id number],C,t achy-carlos syndrome. will plan for PPM explained procedure. all questions and concerns addressed. Jessica Napier NP [id number],C, B P today: 122/80 P rior BP: 130/81 (12/03/2022) Labs Reviewed: C reat: 0.62 (11/18/2022) C hol: 159 (11/18/2022) HDL: 64 (11/18/2022) LDL: 78 MG/DL (CALC) (11/18/2022) T (11/18/2022) Her updated medication list for this problem includes: Sotalol 80 Mg Tablet (Sotalol) ..... Take 1/2 (one-half) tablet by mouth daily with food Lisinopril 40 Mg Tablet (Lisinopril) ..... Take one tablet by mouth daily Aldactone 25 Mg Tablet (Spironolactone) ..... Take 1 tablet by mouth daily Lasix 20 Mg Tablet (Furosemide) ..... Take 1 tablet by mouth every day as needed Amlodipine 10 Mg Tablet (Amlodipine) Jessica Napier NP [id number],C,see #1 Madonna Napier NP [id number],C,no [place] on last remote ILR check Jessica Napier NP [id number],C, Pt had ILR placed. open area to middle of chest above ILR insertion site, not at insertion site. Pt has been having issues with drainage and 'blisters' around site. today site is open, redness to site, no red streaking from open area towards ILR. Discussion re: need to have this site healed. need to have documentation of rate, HR <60 or pauses >3 seconds, to determine need for PPM. after documentation of HR and need for ppm, the discussion re: afib ablation can be had in the future. no plans for ablation at present time. Jessica Napier NP [id number],N, Kenan Thakkar MD [id number],C,. Documentation of mild PAD per duplex. Bre Robert [id number],C,O michelle doing well. Complaining of some griselda horses. Documentation of mild PAD per duplex. Bre Robert [id number],C,O michelle doing well. Complaining of some griselda horses. Documentation of mild PAD per duplex. She would liek to participate in the OCEANIC-AF trial. Will obtain f/u echo Her updated medication list for this problem includes: Sotalol 80 Mg Tablet (Sotalol) ..... Take 1/2 tablet by mouth twice a day with food as directed rBe Robert [id number],C, . Weight loss advised. Kenan Thakkar MD [id number],C, B P today: 138/83 P rior BP: 146/79 (08/05/2021) Labs Reviewed: C reat: 0.85 (09/04/2021) C hol: 184 (05/17/2018) HDL: 72 (05/17/2018) LDL: 94 MG/DL (CALC) (05/17/2018) T (05/17/2018) Her updated medication list for this problem includes: Lisinopril 40 Mg Tablet (Lisinopril) ..... Take one tablet by mouth daily Sotalol 80 Mg Tablet (Sotalol) ..... Take 1/2 tablet by mouth twice a day with food as directed Aldactone 25 Mg Tablet (Spironolactone) ..... Take 1 tablet by mouth daily Lasix 20 Mg Tablet (Furosemide) ..... Take 1 tablet by mouth every day as needed Amlodipine 10 Mg Tablet (Amlodipine) Kenan Thakkar MD [id number],S, Kenan Thakkar MD [id number],S, Kenan Thakkar MD [id number],S, Kenan Thakkar MD [id number],S, Kenan Thakkar MD [id number],B, Kenan Thakkar MD [id number],C, H er updated medication list for this problem includes: Atorvastatin 80 Mg Tablet (Atorvastatin) ..... Take one tablet by mouth daily Bre Robert [id number],S,. Weight loss advised. Bre Robert [id number],C, B P still elevated, will aladaconte 25 mg daily. B P today: 146/79 P rior BP: 157/84 (06/17/2021) Labs Reviewed: C reat: 0.64 (11/27/2020) C hol: 184 (05/17/2018) HDL: 72 (05/17/2018) LDL: 94 MG/DL (CALC) (05/17/2018) T (05/17/2018) Her updated medication list for this problem includes: Aldactone 25 Mg Tablet (Spironolactone) ..... Take 1 tablet by mouth daily Lasix 20 Mg Tablet (Furosemide) ..... Take 1 tablet by mouth every day as needed Amlodipine 10 Mg Tablet (Amlodipine) Sotalol 80 Mg Tablet (Sotalol) ..... Take 1/2 tablet by mouth twice a day Lisinopril 40 Mg Tablet (Lisinopril) ..... 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 She still has leg swelling and discomfort, we will consider venography with IVUS and Venaseal. Bre Robert [id number],S, W eight loss advised. Bre Robert [id number],C, H er updated medication list for this problem includes: Atorvastatin 80 Mg Tablet (Atorvastatin) ..... Take one tablet by mouth daily Bre Robert [id number],C,. BP was elevated and amlodipine was added B P today: 157/84 P rior BP: 120/60 (11/26/2020) Labs Reviewed: C reat: 0.64 (11/27/2020) C hol: 184 (05/17/2018) HDL: 72 (05/17/2018) LDL: 94 MG/DL (CALC) (05/17/2018) T (05/17/2018) Her updated medication list for this problem includes: Lasix 20 Mg Tablet (Furosemide) ..... Take 1 tablet by mouth every day as needed Amlodipine 10 Mg Tablet (Amlodipine) Sotalol 80 Mg Tablet (Sotalol) ..... Take 1/2 tablet by mouth twice a day Lisinopril 40 Mg Tablet (Lisinopril) ..... Take one tablet by mouth daily Bre Robert [id number],C,P t underwent orthopedic surgery and developed swelling in both legs, much worse on the left. BP was elevated and amlodipine was added. Will resume Lasix 20 mg dialy. WIll obtain venous duplex. Bre Robert [id number],C, W eight loss advised. Bre Robert [id number],C, B P today: 120/60 P rior BP: 131/76 (05/23/2020) Labs Reviewed: C reat: 0.66 (03/18/2018) C hol: 184 (05/17/2018) HDL: 72 (05/17/2018) LDL: 94 MG/DL (CALC) (05/17/2018) T (05/17/2018) Her updated medication list for this problem includes: Sotalol 80 Mg Tablet (Sotalol) ..... Take 0.5 tablet by mouth twice a day Lisinopril 40 Mg Tablet (Lisinopril) ..... Take 1 tablet by mouth once a day Lasix 20 Mg Tablet (Furosemide) ..... Once a day Bre Robert [id number],C,O n statin. H er updated medication list for this problem includes: Atorvastatin 80 Mg Tablet (Atorvastatin) ..... Take 1 tablet by mouth once a day Bre Robert [id number],C,S he is a candidate for knee surgery, she is clear by cardiology standpoint. She may hold her Eliquis for any duration requested by the surgeon. Bre Robert [id number],C,N o palpitations at this time. Her updated medication list for this problem includes: Sotalol 80 Mg Tablet (Sotalol) ..... Take 0.5 tablet by mouth twice a day Bre Robert [id number],C,T he pt complains of vertigo, not position related. Starts when she is lying in bed in the morning. Meclizine does not help. CT of the head in 2018 was unremarkable. I recommend ENT consult. Bre Robert Take your medication s every day as directed. Failing to take your medication properly can have a negative impact on your treatment. Please monitor your blood pressure and heart rate regularly, at least weekly. Sit quietly for 5 minutes before taking your blood pressure and heart rate. Recommend a healthy diet plan which would include lots of vegetables and fruits, poultry and fish, low fat dairy products. It would include lower quantities of carbohydrates, like breads, potatoes, rice and pasta. Only small amounts of sweets should be included. Recommend a low salt, or no added salt diet. Exercise of at least 3 times a week is recommended. Even small amounts of exercise regularly can be less intimidating but still beneficial. Please contact us if you have new Chest Pain, Shortness of Breath, Palpitations, Dizziness, or Edema. Ryanne Yoon Cardiology: T he patient is using CPAP on a regular basis. The patient has been benefiting from therapy and should continue use. Kenan Thakkar MD Cardiology Kenan Thakkar MD Cardiology: H er updated medication list for this problem includes: Atorvastatin 80 Mg Tablet (Atorvastatin) ..... Take 1 tablet by mouth once a day take one tablet by mouth daily Kenan Thakkar MD Cardiology: B P today: 128/78 P rior BP: 142/89 (05/02/2023) Labs Reviewed: C reat: 0.61 (04/21/2023) C hol: 159 (11/18/2022) HDL: 64 (11/18/2022) LDL: 78 MG/DL (CALC) (11/18/2022) T (11/18/2022) Her updated medication list for this problem includes: Furosemide 20 Mg Tablet (Furosemide) ..... Take 1 tablet by mouth once daily as needed Lisinopril 40 Mg Tablet (Lisinopril) ..... Take 1 tablet by mouth once daily Spironolactone 25 Mg Tablet (Spironolactone) ..... Take 1 tablet by mouth once daily Sotalol 80 Mg Tablet (Sotalol) ..... Take 1 tablet by mouth twice a day Amlodipine 10 Mg Tablet (Amlodipine) Kenan Thakkar MD Cardiology: Etiology of her episode is unclear. We will remove amlodipine and monitor blood pressure. Since Afib burden is 0 at this time, she does notneed an ablation H er updated medication list for this problem includes: Sotalol 80 Mg Tablet (Sotalol) ..... Take 1 tablet by mouth twice a day Kenan Thakkar MD Cardiology:Pt had an episodes decribed as near syncope. She felt hot and dizzy and looked pale. Her granddaughter assisted her and she did not fall. Etiology of her episode is unclear. We will remove amlodipine and monitor blood pressure. Since Afib burden is 0 at this time, she does notneed an ablation Kenan Thakkar MD Cardiology:no recurrance Sebastian Helms Cardiology:Pt underw ent repositioning of RV lead. However, today we note high thresholds of RV lead. 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 Sebastian Newmanri Cardiology: H er updated medication list for this problem includes: Atorvastatin 80 Mg Tablet (Atorvastatin) ..... Take 1 tablet by mouth once a day take one tablet by mouth daily Sebastian Newmanri Cardiology: she kevin mancuso has multiple episodes of palpitations and runs of Afib. Will increase Sotalol from 40mg BID to 80mg BID. Sebastian Andrewsinari Cardiology:no episodes Sebastian bennett Cardiology: B P today: 121/87 P rior BP: 142/95 (03/16/2023) Labs Reviewed: C reat: 0.72 (12/25/2022) C hol: 159 (11/18/2022) HDL: 64 (11/18/2022) LDL: 78 MG/DL (CALC) (11/18/2022) T (11/18/2022) Her updated medication list for this problem includes: Furosemide 20 Mg Tablet (Furosemide) ..... Take 1 tablet by mouth once daily as needed Lisinopril 40 Mg Tablet (Lisinopril) ..... Take 1 tablet by mouth once daily Spironolactone 25 Mg Tablet (Spironolactone) ..... Take 1 tablet by mouth once daily Sotalol 80 Mg Tablet (Sotalol) ..... 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 WIll obtain CXR and RV lead repositioning. Her updated medication list for this problem includes: Lisinopril 40 Mg Tablet (Lisinopril) ..... Take 1 tablet by mouth once daily Sotalol 80 Mg Tablet (Sotalol) ..... Take 1 tablet by mouth twice a day Amlodipine 10 Mg Tablet (Amlodipine) Sebastian Newmanri Cardiology: T he patient is using CPAP on a regular basis. The patient has been benefiting from therapy and should continue use. Sebastian Scooter Cardiology: B P today: 142/95 P rior BP: 135/86 (01/12/2023) Labs Reviewed: C reat: 0.72 (12/25/2022) C hol: 159 (11/18/2022) HDL: 64 (11/18/2022) LDL: 78 MG/DL (CALC) (11/18/2022) T (11/18/2022) Her updated medication list for this problem includes: Spironolactone 25 Mg Tablet (Spironolactone) ..... Take 1 tablet by mouth once daily Sotalol 80 Mg Tablet (Sotalol) ..... Take 1 tablet by mouth twice a day Lisinopril 40 Mg Tablet (Lisinopril) ..... Take one tablet by mouth daily Lasix 20 Mg Tablet (Furosemide) ..... Take 1 tablet by mouth every day as needed Amlodipine 10 Mg Tablet (Amlodipine) [facility]: H er updated medication list for this problem includes: Sotalol 80 Mg Tablet (Sotalol) ..... Take 1 tablet by mouth twice a day [facility]Pt had a near syncopal episodes. ILR documented a pause greater than 3 seconds. She also has multiple episodes of Afib. In view of her synptomatic pause, we will implant a permanent pacemaker. [facility] Card[facility]:The patie nt is using CPAP on a regular basis. The patient has been benefiting from therapy and should continue use. [facility]Pt had a presyncopal episode last week with no recording on her loop recorder. We thoroughly reviewed her transmissions and we did not see any episodes of bradycardia and we will cancel pacemaker implant at this time. [facility]:She did h ave a few episodes of Afib with RVR and we will increase sotalol back to BID. We will provide her with activator device for loop recorder so she can record episodes of sx o n eliquis Her updated medication list for this problem includes: Sotalol 80 Mg Tablet (Sotalol) ..... Take 1 tablet by mouth twice a day Sebastian Helms Cardiology:CHOL: 159 (11/18/2022) LDL: 78 MG/DL (CALC) (11/18/2022) HDL: 64 (11/18/2022) T (11/18/2022) Her updated medication list for this problem includes: Atorvastatin 80 Mg Tablet (Atorvastatin) ..... Take 1 tablet by mouth once a day take one tablet by mouth daily Kenan Thakkar MD Cardiology: B P today: 135/86 P rior BP: 122/80 (12/17/2022) Labs Reviewed: C reat: 0.72 (12/25/2022) C hol: 159 (11/18/2022) HDL: 64 (11/18/2022) LDL: 78 MG/DL (CALC) (11/18/2022) T (11/18/2022) Her updated medication list for this problem includes: Sotalol 80 Mg Tablet (Sotalol) ..... Take 1/2 (one-half) tablet by mouth daily with food Lisinopril 40 Mg Tablet (Lisinopril) ..... Take one tablet by mouth daily Aldactone 25 Mg Tablet (Spironolactone) ..... Take 1 tablet by mouth daily Lasix 20 Mg Tablet (Furosemide) ..... Take 1 tablet by mouth every day as needed Amlodipine 10 Mg Tablet (Amlodipine) Kenan Thakkar MD Electrophysiology:la st remote 11/29 check: AF x3, longest 3 hrs 53 min, HVR x3. AF RVR ~175-200 bpm. longest 8 sec. no changes, normal fx Jessica Napier NP Electrophysiology:ta jonathon-carlos syndrome. will plan for PPM explained procedure. all questions and concerns addressed. Jessica Napier NP Electrophysiology: B P today: 122/80 P rior BP: 130/81 (12/03/2022) Labs Reviewed: C reat: 0.62 (11/18/2022) C hol: 159 (11/18/2022) HDL: 64 (11/18/2022) LDL: 78 MG/DL (CALC) (11/18/2022) T (11/18/2022) Her updated medication list for this problem includes: Sotalol 80 Mg Tablet (Sotalol) ..... Take 1/2 (one-half) tablet by mouth daily with food Lisinopril 40 Mg Tablet (Lisinopril) ..... Take one tablet by mouth daily Aldactone 25 Mg Tablet (Spironolactone) ..... Take 1 tablet by mouth daily Lasix 20 Mg Tablet (Furosemide) ..... Take 1 tablet by mouth every day as needed Amlodipine 10 Mg Tablet (Amlodipine) Jessica Napier NP Electrophysiology:see #1 Cyril Napier NP Electrophysiology:no VT on last remote ILR check Jessica Napier NP Electrophysiology: P t had ILR placed. open area to middle of chest above ILR insertion site, not at insertion site. Pt has been having issues with drainage and 'blisters' around site. today site is open, redness to site, no red streaking from open area towards ILR. Discussion re: need to have this site healed. need to have documentation of rate, HR <60 or pauses >3 seconds, to determine need for PPM. after documentation of HR and need for ppm, the discussion re: afib ablation can be had in the future. no plans for ablation at present time. Jessica Napier NP Cardiology Kenan Thakkar MD Cardiology:. Documentation of mi ld PAD per duplex. [facility] Robert Cardiology:Overall d oing well. Complaining of some griselda horses. Documentation of mild PAD per duplex. [facility] Robert Cardiology:Overall d oing well. Complaining of some griselda horses. Documentation of mild PAD per duplex. She would liek to participate in the OCEANIC-AF trial. Will obtain f/u echo Her updated medication list for this problem includes: Sotalol 80 Mg Tablet (Sotalol) ..... Take 1/2 tablet by mouth twice a day with food as directed Bre Robert Cardiology: . Weight loss advised. Kenan Thakkar MD Cardiology: B P today: 138/83 P rior BP: 146/79 (08/05/2021) Labs Reviewed: C reat: 0.85 (09/04/2021) C hol: 184 (05/17/2018) HDL: 72 (05/17/2018) LDL: 94 MG/DL (CALC) (05/17/2018) T (05/17/2018) Her updated medication list for this problem includes: Lisinopril 40 Mg Tablet (Lisinopril) ..... Take one tablet by mouth daily Sotalol 80 Mg Tablet (Sotalol) ..... Take 1/2 tablet by mouth twice a day with food as directed Aldactone 25 Mg Tablet (Spironolactone) ..... Take 1 tablet by mouth daily Lasix 20 Mg Tablet (Furosemide) ..... Take 1 tablet by mouth every day as needed Amlodipine 10 Mg Tablet (Amlodipine) Kenan Thakkar MD Cardiology Kenan Thakkar MD Cardiology Kenan Thakkar MD Cardiology Kenan Thakkar MD Cardiology Kenan Thakkar MD Cardiology Kenan Thakkar MD Cardiology: H er updated medication list for this problem includes: Atorvastatin 80 Mg Tablet (Atorvastatin) ..... Take one tablet by mouth daily [facility] Cardiology:. Weight loss advised. [facility] Robert Cardiology: B P still elevated, will aladaconte 25 mg daily. B P today: 146/79 P rior BP: 157/84 (06/17/2021) Labs Reviewed: C reat: 0.64 (11/27/2020) C hol: 184 (05/17/2018) HDL: 72 (05/17/2018) LDL: 94 MG/DL (CALC) (05/17/2018) T (05/17/2018) Her updated medication list for this problem includes: Aldactone 25 Mg Tablet (Spironolactone) ..... Take 1 tablet by mouth daily Lasix 20 Mg Tablet (Furosemide) ..... Take 1 tablet by mouth every day as needed Amlodipine 10 Mg Tablet (Amlodipine) Sotalol 80 Mg Tablet (Sotalol) ..... Take 1/2 tablet by mouth twice a day Lisinopril 40 Mg Tablet (Lisinopril) ..... 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 She still has leg swelling and discomfort, we will consider venography with IVUS and Venaseal. [facility] Robert Cardiology: W eight loss advised. [facility] Robert Cardiology: H er updated medication list for this problem includes: Atorvastatin 80 Mg Tablet (Atorvastatin) ..... Take one tablet by mouth daily Bre Robert Cardiology:. BP was elevated and amlodipine was added B P today: 157/84 P rior BP: 120/60 (11/26/2020) Labs Reviewed: C reat: 0.64 (11/27/2020) C hol: 184 (05/17/2018) HDL: 72 (05/17/2018) LDL: 94 MG/DL (CALC) (05/17/2018) T (05/17/2018) Her updated medication list for this problem includes: Lasix 20 Mg Tablet (Furosemide) ..... Take 1 tablet by mouth every day as needed Amlodipine 10 Mg Tablet (Amlodipine) Sotalol 80 Mg Tablet (Sotalol) ..... Take 1/2 tablet by mouth twice a day Lisinopril 40 Mg Tablet (Lisinopril) ..... Take one tablet by mouth daily [facility] Robert Cardiology:Pt underw ent orthopedic surgery and developed swelling in both legs, much worse on the left. BP was elevated and amlodipine was added. Will resume Lasix 20 mg dialy. WIll obtain venous duplex. [facility] Robert Cardiology Follow up : W eight loss advised. Bre [facility]asc[facility] Cardiology Follow up : B P today: 120/60 P rior BP: 131/76 (05/23/2020) Labs Reviewed: C reat: 0.66 (03/18/2018) C hol: 184 (05/17/2018) HDL: 72 (05/17/2018) LDL: 94 MG/DL (CALC) (05/17/2018) T (05/17/2018) Her updated medication list for this problem includes: Sotalol 80 Mg Tablet (Sotalol) ..... Take 0.5 tablet by mouth twice a day Lisinopril 40 Mg Tablet (Lisinopril) ..... Take 1 tablet by mouth once a day Lasix 20 Mg Tablet (Furosemide) ..... Once a day Bre Higginspascual Cardiology Follow u p :On statin. H er updated medication list for this problem includes: Atorvastatin 80 Mg Tablet (Atorvastatin) ..... Take 1 tablet by mouth once a day Bre Johnsonmarylou Cardiology Follow up :She is a candidate for knee surgery, she is clear by cardiology standpoint. She may hold her Eliquis for any duration requested by the surgeon. Bre Higginsmarylou Cardiology Follow up :No palpitations at this time. Her updated medication list for this problem includes: Sotalol 80 Mg Tablet (Sotalol) ..... Take 0.5 tablet by mouth twice a day Bre Johnsonmarylou Cardiology Follow up :The pt complains of vertigo, not position related. Starts when she is lying in bed in the morning. Meclizine does not help. CT of the head in 2018 was unremarkable. I recommend ENT consult. Bre Robert TeleHealth:Her [facility] ed medication list for this problem includes: Atorvastatin 80mg Tablets (Atorvastatin calcium) ..... Take 1 tablet by mouth daily Jeremías Richard TeleHealth:BP today (per patient): 131/76 P rior BP: 148/86 (12/12/2019) Her updated medication list for this problem includes: Lisinopril 40mg Tablets (Lisinopril) ..... Take 1 tablet by mouth daily Lasix 20 Mg Oral Tablet (Furosemide) ..... Daily Sotalol 80mg Tablets (Sotalol hcl) ..... Take 1/2 tablet by mouth twice daily Jeremías [facility] TeleHealth Jeremías Alcocer TeleHealth:No palpit ations at this time. Her updated medication list for this problem includes: Sotalol 80mg Tablets (Sotalol hcl) ..... Take 1/2 tablet by mouth twice daily Eliquis 5 Mg Oral Tablet (Apixaban) .... One tablet twice daily Jeremías [facility] TeleHealth:She was e xposed to COVID-19 earlier this week and thus we will do a rapid swab prior to her testing. Denies chest pain, SOB, cough, fever, any other symptoms concerning for COVID. Jeremías [facility] TeleHealth:Tuesday night pt developed pain in the left leg, like a griselda horse, which woke her up from sleep. Also developed throbbing pain. She was advised to go to the ER but she refused. We will schedule her for a venous duplex to rule out DVT. She has been faithfully taking her Eliquis. [facility] Cardiology follow up :Her updated medication list for this problem includes: Atorvastatin 80mg Tablets (Atorvastatin calcium) ..... Take 1 tablet by mouth daily [facility] Cardiology follow up :BP today: 148/86 P rior BP: 164/95 (05/02/2019) Her updated medication list for this problem includes: Lisinopril 40mg Tablets (Lisinopril) ..... Take 1 tablet by mouth daily Lasix 20 Mg Oral Tablet (Furosemide) ..... Daily Sotalol 80mg Tablets (Sotalol hcl) ..... Take 1/2 tablet by mouth twice daily [facility] Cardiology follow up :No chest pain, SOB, or palpitations. Her updated medication list for this problem includes: Sotalol 80mg Tablets (Sotalol hcl) ..... Take 1/2 tablet by mouth twice daily Eliquis 5 Mg Oral Tablet (Apixaban) .... One tablet twice daily [facility] Cardiology follow up :Has occasional dizziness, which responds to Meclizine. [facility] Cardiology:Her [facility] ed medication list for this problem includes: Atorvastatin Calcium 80 Mg Oral Tablet (Atorvastatin calcium) ..... Take one tablet daily [facility] Cardiology:Echo did not show significant valvular disease (trace AI, mild MR and TR). [facility] Cardiology:Recently BP was normal at another doctor's office. Pt will monitor at home. BP today: 164/95 P rior BP: 126/82 (11/08/2018) Her updated medication list for this problem includes: Lisinopril 40 Mg Oral Tablet (Lisinopril) ..... One tablet daily Lasix 20 Mg Oral Tablet (Furosemide) ..... Daily Sotalol 80mg Tablets (Sotalol hcl) ..... Take 1/2 tablet by mouth twice daily [facility] Cardiology [facility] Cardiology:Overall f eeling well. Denies symptoms. Her updated medication list for this problem includes: Sotalol 80mg Tablets (Sotalol hcl) ..... Take 1/2 tablet by mouth twice daily Eliquis 5 Mg Oral Tablet (Apixaban) .... One tablet twice daily [facility] Cardiology:Echo last year showed: There is moderate enlargement of the left atrium. LA volume is 67 mL. The left atrial volume is moderately abnormal. [facility] Cardiology:BP today: 126/82 P rior BP: 118/68 (05/12/2018) Her updated medication list for this problem includes: Lisinopril 40 Mg Oral Tablet (Lisinopril) ..... One tablet daily Lasix 20 Mg Oral Tablet (Furosemide) ..... Daily Sotalol Hcl 80 Mg Oral Tablet (Sotalol hcl) ..... Half a tab. (40 mg) twice daily [facility] Cardiology:Labs: A lkaline Phosphatase: 155 (05/17/2018) [facility] Cardiology:Labwork ( before Atorvastatin was increased from 40mg to 80mg daily): C HOL: 184 (05/17/2018) LDL: 94 MG/DL (CALC) (05/17/2018) HDL: 72 (05/17/2018) T (05/17/2018) Her updated medication list for this problem includes: Atorvastatin Calcium 80 Mg Oral Tablet (Atorvastatin calcium) ..... Take one tablet daily [facility] Cardiology:Dizziness is well controlled with Meclizine. [facility] Cardiology [facility] Cardiology:Her updat ed medication list for this problem includes: Sotalol Hcl 80 Mg Oral Tablet (Sotalol hcl) ..... Half a tab. (40 mg) twice daily Eliquis 5 Mg Oral Tablet (Apixaban) .... One tablet twice daily [facility] Cardiology:Her updat ed medication list for this problem includes: Atorvastatin Calcium 40 Mg Oral Tablet (Atorvastatin calcium) ..... One tablet daily Orders: L IPID PANEL (7600) H EPATIC FUNCTION PANEL (01858) [facility] Cardiology [facility] Cardiology:S/P Revea l removal. Her updated medication list for this problem includes: Sotalol Hcl 80 Mg Oral Tablet (Sotalol hcl) ..... Half a tab. (40 mg) twice daily Eliquis 5 Mg Oral Tablet (Apixaban) .... One tablet twice daily [facility] Cardiology:BP today: 118/68 P rior BP: 142/80 (03/01/2018) Her updated medication list for this problem includes: Lisinopril 40 Mg Oral Tablet (Lisinopril) ..... One tablet daily Lasix 20 Mg Oral Tablet (Furosemide) ..... Daily Sotalol Hcl 80 Mg Oral Tablet (Sotalol hcl) ..... Half a tab. (40 mg) twice daily [facility] Cardiology:Responds well to Mecl izine. [facility] Cardiology followup: Her updated medication list for this problem includes: Sotalol Hcl 80 Mg Oral Tablet (Sotalol hcl) ..... Half a tab. (40 mg) twice daily Eliquis 5 Mg Tabs (Apixaban) .... One tablet twice daily [facility] Cardiology followup: BP today: 142/80 P rior BP: 150/98 (08/31/2017) Her updated medication list for this problem includes: Lisinopril 40 Mg Oral Tablet (Lisinopril) ..... One tablet daily Lasix 20 Mg Oral Tablet (Furosemide) ..... Daily Sotalol Hcl 80 Mg Oral Tablet (Sotalol hcl) ..... Half a tab. (40 mg) twice daily [facility] Cardiology followup: Orders: D evice Removal - [facility] (*) [facility] Cardiology followup: Orders: C T Head with contrast (CPT-24267) [facility] Cardiology Kenan Thakkar MD Cardiology:Pt does n ot want to schedule replacement at this time. Kenan Thakkar MD Cardiology:No palpit ations. EKG today shows sinus rhythm. Her updated medication list for this problem includes: Sotalol Hcl 80 Mg Oral Tablet (Sotalol hcl) ..... Half a tab. (40 mg) twice daily Eliquis 5 Mg Tabs (Apixaban) .... One tablet twice daily Kenan Thakkar MD Cardiology:BP is unc ontrolled currently. Will increase Lisinopril to 40mg daily and obtain echo and renal artery duplex. BP today: 150/98 P rior BP: 167/90 (02/23/2017) Her updated medication list for this problem includes: Lisinopril 40 Mg Oral Tablet (Lisinopril) ..... One tablet daily Lasix 20 Mg Oral Tablet (Furosemide) ..... Daily Sotalol Hcl 80 Mg Oral Tablet (Sotalol hcl) ..... Half a tab. (40 mg) twice daily Kenan Thakkar MD Cardiology Follow up:Continues o n Eliquis 5mg BID. Kenan Thakkar MD Cardiology Follow up:Weight loss advised. Kenan Thakkar MD Cardiology Follow up:Denies ches t pain. Kenan Thakkar MD Cardiology Follow up :BP today: 167/90 P rior BP: 132/80 (08/26/2016) Her updated medication list for this problem includes: Lisinopril 10 Mg Tabs (Lisinopril) ..... One tab. daily Lasix 20 Mg Tabs (Furosemide) ..... Daily Sotalol Hcl 80 Mg Tabs (Sotalol hcl) ..... Half a tab. (40 mg) twice daily Kenan Thakkar MD Cardiology Follow up :No recent episodes on ILR. Her updated medication list for this problem includes: Sotalol Hcl 80 Mg Tabs (Sotalol hcl) ..... Half a tab. (40 mg) twice daily Eliquis 5 Mg Tabs (Apixaban) .... One tablet twice daily Kenan Thakkar MD Cardiology Follow up:Controlled with Meclizine. Kenan Thakkar MD Cardiology:Cleared f rom cardiac perspective. She can hold anticoagulation for any duration recommended by surgeon. [facility] Cardiology:Blood pressure contro l is satisfactory. [facility] Cardiology:BP is west vated and we will start Lisinopril 10mg daily. BP today: 186/94 P rior BP: 175/90 (08/27/2015) Her updated medication list for this problem includes: Lisinopril 10 Mg Tabs (Lisinopril) ..... One tab. daily Lasix 20 Mg Tabs (Furosemide) ..... Daily Sotalol Hcl 80 Mg Tabs (Sotalol hcl) ..... Half a tab. (40 mg) twice daily Kenan Thakkar MD Cardiology:Lipitor 40mg daily re started. Kenan Thakkar MD Cardiology:Lipitor w as on hold due to elevated alkphos and the level stayed the same. Will restart Lipitor. Kenan [facility]akkar [facility]: Sotalol Hcl 80 Mg Tabs (Sotalol hcl) ..... Half a tab. (40 mg) twice daily Eliquis 5 Mg Tabs (Apixaban) .... One tablet twice daily Kenan Thakkar MD Cardiology:Her [facility] ed medication list for this problem includes: Sotalol Hcl 80 Mg Tabs (Sotalol hcl) ..... Half a tab. (40 mg) twice daily Eliquis 5mg ... One tablet twice a day Jeremías Hilary Cardiology:Not compliant with CP AP. Jeremías [facility] Cardiology:Denies chest pain. Jus Richard Cardiology:BP today: 175/90 P rior BP: 165/90 (02/26/2015) Her updated medication list for this problem includes: Lasix 20 Mg Tabs (Furosemide) ..... Daily Sotalol Hcl 80 Mg Tabs (Sotalol hcl) ..... Half a tab. (40 mg) twice daily Jeremías [facility] Cardiology:In additi on, Alk Phos was elevated to 153 (upper limit 117). Will hold Atorvastatin. CHOL: 237 (03/14/2013) LDL: 160 (03/14/2013) HDL: 55 (03/14/2013) T (03/14/2013) Jeremías Hilary Cardiology:BP today: 165/90 P rior BP: 180/95 (12/25/2014) Her updated medication list for this problem includes: Lasix 20 Mg Tabs (Furosemide) ..... Daily Sotalol Hcl 80 Mg Tabs (Sotalol hcl) ..... Half a tab. (40 mg) twice daily Kenan Thakkar MD Cardiology:Pt mentcarmela youngd that she has some episodes of chest pressure 2-3 times a week, not related to exertion, lasting a few minutes at a time. Will obtain myoview scan and echo. Kenan Thakkar MD Cardiology:Also she was told that she has hypokalemia. Will start KCl 20meq daily. Kenan Thakkar MD Cardiology:Pt had a number of episodes of hot flashes, followed by feeling clammy and dizzy, then she feels weakness for 5-10 minutes. She has multipe episodes per day. No arrythmia was reported on the Reveal. Kenan Thakkar MD Cardiology:BP today: 180/95 P rior BP: 158/95 (06/26/2014) Kenan Thakkar MD FU: H er updated medication list for this problem includes: Multaq 400 Mg Tabs (Dronedarone hcl) ..... One tab with morning meal. one tab with evening meal. Coreg 25 Mg Tabs (Carvedilol) ..... Twice daily Carvedilol 25 Mg Tabs (Carvedilol) ..... Twice daily Orders: C OMPREHENSIVE METABOLIC PANEL W/EGFR (97084) L IPID PANEL (7600) T HYROID PANEL WITH TSH, 3RD GENERATION (7444) Kenan Thakkar MD lap band surgery: H is updated medication list for this problem includes: Coreg Cr 80 Mg Cp24 (Carvedilol phosphate) ..... One tab. daily Amiodarone Hcl 200 Mg Tabs (Amiodarone hcl) ..... One tab. daily BP today: 102/60 Prior BP: 140/80 (08/21/2008) B UN: 26 (08/27/2008) Creat: 0.68 (08/27/2008) Glucose: 97 (08/27/2008) N a+: 136 (08/27/2008) K+: 4.0 (08/27/2008) Cl: 98 (08/27/2008) Nuclear Stress Findings: 1. Adenosine mediated myocardial perfusion study 2 . Normal left ventricular size and mildly reduced left ventricular systolic function with a calculated ejection fraction of 48%. 3 . No obvious significant scintigraphic evidence of myocardial ischemia or scar. [facility] (06/05/2008) E chocardiogram: TDS.The LV chamber size and wall thickness is normal. Probable Normal LV function. LV EF is estimated at 60%. [facility] (06/05/2008) Orders: Braden KG (CPT-[id number]) Kenan Thakkar MD 2 m [facility] follow-up: H is updated medication list for this problem includes: Coreg Cr 80 Mg Cp24 (Carvedilol phosphate) ..... One tab. daily Amiodarone Hcl 200 Mg Tabs (Amiodarone hcl) ..... One tab. daily BP today: 140/80 Prior BP: 150/81 (07/09/2008) N uclear Stress Findings: 1. Adenosine mediated myocardial perfusion study 2 . Normal left ventricular size and mildly reduced left ventricular systolic function with a calculated ejection fraction of 48%. 3 . No obvious significant scintigraphic evidence of myocardial ischemia or scar. [facility] (06/05/2008) Echocardiogram: TDS.The LV chamber size and wall thickness is normal. Probable Normal LV function. LV EF is estimated at 60%. [facility] (06/05/2008) Kenan Thakkar MD 2 m [facility] follow-up: H is updated medication list for this problem includes: Coreg Cr 80 Mg Cp24 (Carvedilol phosphate) ..... One tab. daily BP today: 140/80 P rior BP: 150/81 (07/09/2008) Kenan Thakkar MD 2 m [facility] follow-up: H is updated medication list for this problem includes: Coreg Cr 80 Mg Cp24 (Carvedilol phosphate) ..... One tab. daily Amiodarone Hcl 200 Mg Tabs (Amiodarone hcl) ..... One tab. daily BP today: 140/80 Prior BP: 150/81 (07/09/2008) N uclear Stress Findings: 1. Adenosine mediated myocardial perfusion study 2 . Normal left ventricular size and mildly reduced left ventricular systolic function with a calculated ejection fraction of 48%. 3 . No obvious significant scintigraphic evidence of myocardial ischemia or scar. [facility] (06/05/2008) Echocardiogram: TDS.The LV chamber size and wall thickness is normal. Probable Normal LV function. LV EF is estimated at 60%. [facility] (06/05/2008) Kenan Thakkar MD FU: Dizziness: H is updated medication list for this problem includes: Coreg Cr 80 Mg Cp24 (Carvedilol phosphate) ..... One tab. daily Kenan Thakkar MD FU: Dizziness: H is updated medication list for this problem includes: Coreg Cr 80 Mg Cp24 (Carvedilol phosphate) ..... One tab. daily Amiodarone Hcl 200 Mg Tabs (Amiodarone hcl) ..... One tab. daily Kenan Thakkar MD FU: Dizziness: H is updated medication list for this problem includes: Coreg Cr 80 Mg Cp24 (Carvedilol phosphate) ..... One tab. daily Amiodarone Hcl 200 Mg Tabs (Amiodarone hcl) ..... One tab. daily Kenan Thakkar MD 1 month follow-up: T he following medications were removed from the medication list: Metoprolol Tartrate 50 Mg Tabs (Metoprolol tartrate) ..... One tab. twice daily His updated medication list for this problem includes: Coreg Cr 80 Mg Cp24 (Carvedilol phosphate) ..... One tab. daily BP today: 155/91 P rior BP: 163/85 (05/23/2008) Kenan Thakkar MD : H is updated medication list for this problem includes: Coreg Cr 40 Mg Cp24 (Carvedilol phosphate) ..... One tab. daily Metoprolol Tartrate 50 Mg Tabs (Metoprolol tartrate) ..... One tab. twice daily Amiodarone Hcl 200 Mg Tabs (Amiodarone hcl) ..... One tab. daily Orders: C omplete Echo ([id number]) S tress Test - Nuclear (36481) S lee Study (*) Kenan Thakkar MD Date Name COMPREHENSIVE METABO LIC PANEL, W/EGFR CBC (INCLUDES DIFF/P LT) PROTHROMBIN TIME WIT H INR Partial Thromboplast in Time, Activated URINALYSIS, COMPLETE W/REFLEX TO CULTURE X-Ray, Chest - Routi ne X-Ray, Chest - Routi ne X-Ray, Chest - Routi ne COMPREHENSIVE METABO LIC PANEL, W/EGFR Partial Thromboplast in Time, Activated PROTHROMBIN TIME WIT H INR CBC (INCLUDES DIFF/P LT) BASIC METABOLIC PANE L W/EGFR PROTHROMBIN TIME WIT H INR LIPID PANEL CBC (INCLUDES DIFF/P LT) BASIC METABOLIC PANE L W/EGFR Complete Echo BASIC METABOLIC PANE L W/EGFR RPM (remote patient monitoring) Venous Doppler Bilat eral LE - Reflux EKG BASIC METABOLIC PANE L W/EGFR Arterial Duplex LLE COVID19 Rapid POC Venous Doppler Unila teral LLE Covid Antibody IgA ( LC) Covid Antibody IgM ( LC) Covid Antibody Igg Complete Echo HEPATIC FUNCTION ALVAREZ EL LIPID PANEL PROTHROMBIN TIME WIT H INR CBC (INCLUDES DIFF/P LT) PARTIAL THROMBOPLAST IN TIME, ACTIVATED URINALYSIS, COMPLETE W/REFLEX TO CULTURE COMPREHENSIVE METABO LIC PANEL W/EGFR CT Head with contras t Device Removal - [facility] V Renal Artery Duplex Complete Echo Complete Echo STR - Adenosine Complete Echo BASIC METABOLIC PANE L W/EGFR CBC (INCLUDES DIFF/P LT) Tilt Table Test Mobile Cardiac Tele Complete Echo Complete Echo Event Recorder Holter Monitor 24 Hr ABLATION w/ Anesthes ia Holter Monitor 24 Hr Event Recorder Holter Monitor 24 Hr Complete Echo THYROID PANEL WITH T SH, 3RD GENERATION Complete Echo LIPID PANEL COMPREHENSIVE METABO LIC PANEL W/EGFR COMPREHENSIVE METABO LIC PANEL W/EGFR LIPID PANEL HEPATIC FUNCTION ALVAREZ EL THYROID PANEL WITH T SH, 3RD GENERATION Sleep Study Stress Test - Nuclea r Complete Echo HISTORY OF PROCEDURES Procedure Date Procedure Name Provider Procedure Notes S tatus EKG Lucho trivedi MD completed EKG Kenan Thakkar MD completed EKG Kenan Thakkar MD completed EKG Kenan Thakkar MD completed CCM MD Eval Kenan Thakkar MD completed EKG Kenan Thakkar MD completed Loop Recorder Interrogation, Remote Kenan Thakkar MD INTERROGATION EVALUATION REMOTE </30 D ILR SYS completed ICM Interrogation, Remote (Tech) Kenan Thakkar MD INTERROGATION EVAL REMOTE </30 D TECH REVIEW completed SNOMED-CT: [id number] Current Medications Documented Kenan Thakkar MD completed Loop Recorder Interrogation, Remote Kenan Thakkar MD INTERROGATION EVALUATION REMOTE </30 D ILR SYS completed ICM Interrogation, Remote (Tech) Kenan Thakkar MD INTERROGATION EVAL REMOTE </30 D TECH REVIEW completed Loop Recorder Interrogation, Remote Kenan Thakkar MD INTERROGATION EVALUATION REMOTE </30 D ILR SYS completed ICM Interrogation, Remote (Tech) Kenan Thakkar MD INTERROGATION EVAL REMOTE </30 D TECH REVIEW completed Loop Recorder Interrogation, Remote Kenan Thakkar MD INTERROGATION EVALUATION REMOTE </30 D ILR SYS completed ICM Interrogation, Remote (Tech) Kenan Thakkar MD INTERROGATION EVAL REMOTE </30 D TECH REVIEW completed Loop Recorder Interrogation, Remote Kenan Thakkar MD INTERROGATION EVALUATION REMOTE </30 D ILR SYS completed ICM Interrogation, Remote (Tech) Kenan Thakkar MD INTERROGATION EVAL REMOTE </30 D TECH REVIEW completed EKG Kenan Thakkar MD completed SNOMED-CT: [id number] Current Medications Documented Kenan Thakkar MD completed Loop Recorder Interrogation, Remote Kenan Thakkar MD INTERROGATION EVALUATION REMOTE </30 D ILR SYS completed ICM Interrogation, Remote (Tech) Kenan Thakkar MD INTERROGATION EVAL REMOTE </30 D TECH REVIEW completed Loop Recorder Interrogation, Remote Kenan Thakkar MD INTERROGATION EVALUATION REMOTE </30 D ILR SYS completed ICM Interrogation, Remote (Tech) Kenan Thakkar MD INTERROGATION EVAL REMOTE </30 D TECH REVIEW completed Loop Recorder Interrogation, Remote Kenan Thakkar MD INTERROGATION EVALUATION REMOTE </30 D ILR SYS completed ICM Interrogation, Remote (Tech) Kenan Thakkar MD INTERROGATION EVAL REMOTE </30 D TECH REVIEW completed Loop Recorder Interrogation, Remote Kenan Thakkar MD INTERROGATION EVALUATION REMOTE </30 D ILR SYS completed ICM Interrogation, Remote (Tech) Kenan Thakkar MD INTERROGATION EVAL REMOTE </30 D TECH REVIEW completed SNOMED-CT: [id number] Current Medications Documented Kenan Thakkar MD completed Loop Recorder Interrogation, Remote Kenan Thakkar MD INTERROGATION EVALUATION REMOTE </30 D ILR SYS completed ICM Interrogation, Remote (Tech) Kenan Thakkar MD INTERROGATION EVAL REMOTE </30 D TECH REVIEW completed Loop Recorder Interrogation, Remote Kenan Thakkar MD INTERROGATION EVALUATION REMOTE </30 D ILR SYS completed ICM Interrogation, Remote (Tech) Kenan Thakkar MD INTERROGATION EVAL REMOTE </30 D TECH REVIEW completed Loop Recorder Interrogation, Remote Kenan Thakkar MD INTERROGATION EVALUATION REMOTE </30 D ILR SYS completed ICM Interrogation, Remote (Tech) Kenan Thakkar MD INTERROGATION EVAL REMOTE </30 D TECH REVIEW completed Loop Recorder Interrogation, Remote Kenan Thakkar MD INTERROGATION EVALUATION REMOTE </30 D ILR SYS completed ICM Interrogation, Remote (Tech) Kenan Thakkar MD INTERROGATION EVAL REMOTE </30 D TECH REVIEW completed Loop Recorder Interrogation, Remote Kenan Thakkar MD INTERROGATION EVALUATION REMOTE </30 D ILR SYS completed ICM Interrogation, Remote (Tech) Kenan Thakkar MD INTERROGATION EVAL REMOTE </30 D TECH REVIEW completed Loop Recorder Interrogation, Remote Kenan Thakkar MD INTERROGATION EVALUATION REMOTE </30 D ILR SYS completed ICM Interrogation, Remote (Tech) Kenan Thakkar MD INTERROGATION EVAL REMOTE </30 D TECH REVIEW completed EKG Kenan Thakkar MD completed SNOMED-CT: [id number] Current Medications Documented Kenan Thakkar MD completed Loop Recorder Interrogation, Remote Kenan Thakkar MD INTERROGATION EVALUATION REMOTE </30 D ILR SYS completed ICM Interrogation, Remote (Tech) Kenan Thakkar MD INTERROGATION EVAL REMOTE </30 D TECH REVIEW completed Loop Recorder Interrogation, Remote Kenan Thakkar MD INTERROGATION EVALUATION REMOTE </30 D ILR SYS completed ICM Interrogation, Remote (Tech) Kenan Thakkar MD INTERROGATION EVAL REMOTE </30 D TECH REVIEW completed Loop Recorder Interrogation, Remote Kenan Thakkar MD INTERROGATION EVALUATION REMOTE </30 D ILR SYS completed ICM Interrogation, Remote (Tech) Kenan Thakkar MD INTERROGATION EVAL REMOTE </30 D TECH REVIEW completed Loop Recorder Interrogation, Remote Kenan Thakkar MD INTERROGATION EVALUATION REMOTE </30 D ILR SYS completed ICM Interrogation, Remote (Tech) Kenan Thakkar MD INTERROGATION EVAL REMOTE </30 D TECH REVIEW completed Stress EKG Moises Stauffer MD completed Regadenoson, 4 units Kenan Thakkar MD completed Cardiolite, 2 units Kenan Thakkar MD c ompleted SPECT Images Jourdan Kearney MD complet ed Loop Recorder Interrogation, Remote Kenan Thakkar MD INTERROGATION EVALUATION REMOTE </30 D ILR SYS completed ICM Interrogation, Remote (Tech) Kenan Thakkar MD INTERROGATION EVAL REMOTE </30 D TECH REVIEW completed SNOMED-CT: [id number] Current Medications Documented Kenan Thakkar MD completed Loop Recorder Interrogation, Remote Kenan Thakkar MD INTERROGATION EVALUATION REMOTE </30 D ILR SYS completed ICM Interrogation, Remote (Tech) Kenan Thakkar MD INTERROGATION EVAL REMOTE </30 D TECH REVIEW completed Loop Recorder Interrogation, Remote Kenan Thakkar MD INTERROGATION EVALUATION REMOTE </30 D ILR SYS completed ICM Interrogation, Remote (Tech) Kenan Thakkar MD INTERROGATION EVAL REMOTE </30 D TECH REVIEW completed Loop Recorder Interrogation, Remote Kenan Thakkar MD INTERROGATION EVALUATION REMOTE </30 D ILR SYS completed ICM Interrogation, Remote (Tech) Kenan Thakkar MD INTERROGATION EVAL REMOTE </30 D TECH REVIEW completed Loop Recorder Interrogation, Remote Kenan Thakkar MD INTERROGATION EVALUATION REMOTE </30 D ILR SYS completed ICM Interrogation, Remote (Tech) Kenan Thakkar MD INTERROGATION EVAL REMOTE </30 D TECH REVIEW completed Loop Recorder Interrogation, Remote Kenan Thakkar MD INTERROGATION EVALUATION REMOTE </30 D ILR SYS completed ICM Interrogation, Remote (Tech) Kenan Thakkar MD INTERROGATION EVAL REMOTE </30 D TECH REVIEW completed Loop Recorder Interrogation, Remote Kenan Thakkar MD INTERROGATION EVALUATION REMOTE </30 D ILR SYS completed ICM Interrogation, Remote (Tech) Kenan Thakkar MD INTERROGATION EVAL REMOTE </30 D TECH REVIEW completed Loop Recorder Interrogation, Remote Kenan Thakkar MD INTERROGATION EVALUATION REMOTE </30 D ILR SYS completed ICM Interrogation, Remote (Tech) Kenan Thakkar MD INTERROGATION EVAL REMOTE </30 D TECH REVIEW completed Loop Recorder Interrogation, Remote Kenan Thakkar MD INTERROGATION EVALUATION REMOTE </30 D ILR SYS completed ICM Interrogation, Remote (Tech) Kenan Thakkar MD INTERROGATION EVAL REMOTE </30 D TECH REVIEW completed Loop Recorder Interrogation, Remote Kenan Thakkar MD INTERROGATION EVALUATION REMOTE </30 D ILR SYS completed ICM Interrogation, Remote (Tech) Kenan Thakkar MD INTERROGATION EVAL REMOTE </30 D TECH REVIEW completed Loop Recorder Interrogation, Remote Kenan Thakkar MD INTERROGATION EVALUATION REMOTE </30 D ILR SYS completed ICM Interrogation, Remote (Tech) Kenan Thakkar MD INTERROGATION EVAL REMOTE </30 D TECH REVIEW completed Loop Recorder Interrogation, Remote Kenan Thakkar MD INTERROGATION EVALUATION REMOTE </30 D ILR SYS completed ICM Interrogation, Remote (Tech) Kenan Thakkar MD INTERROGATION EVAL REMOTE </30 D TECH REVIEW completed Loop Recorder Interrogation, Remote Kenan Thakkar MD INTERROGATION EVALUATION REMOTE </30 D ILR SYS completed ICM Interrogation, Remote (Tech) Kenan Thakkar MD INTERROGATION EVAL REMOTE </30 D TECH REVIEW completed Loop Recorder Interrogation, Remote Kenan Thakkar MD INTERROGATION EVALUATION REMOTE </30 D ILR SYS completed ICM Interrogation, Remote (Tech) Kenan Thakkar MD INTERROGATION EVAL REMOTE </30 D TECH REVIEW completed Loop Recorder Interrogation, Remote Kenan Thakkar MD INTERROGATION EVALUATION REMOTE </30 D ILR SYS completed ICM Interrogation, Remote (Tech) Kenan Thakkar MD INTERROGATION EVAL REMOTE </30 D TECH REVIEW completed Loop Recorder Interrogation, Remote Kenan Thakkar MD INTERROGATION EVALUATION REMOTE </30 D ILR SYS completed ICM Interrogation, Remote (Tech) Kenan Thakkar MD INTERROGATION EVAL REMOTE </30 D TECH REVIEW completed Loop Recorder Interrogation, Remote Kenan Thakkar MD INTERROGATION EVALUATION REMOTE </30 D ILR SYS completed ICM Interrogation, Remote (Tech) Kenan Thakkar MD INTERROGATION EVAL REMOTE </30 D TECH REVIEW completed Loop Recorder Interrogation, Remote Kenan Thakkar MD INTERROGATION EVALUATION REMOTE </30 D ILR SYS completed ICM Interrogation, Remote (Tech) Kenan Thakkar MD INTERROGATION EVAL REMOTE </30 D TECH REVIEW completed Loop Recorder Interrogation, Remote Kenan Thakkar MD INTERROGATION EVALUATION REMOTE </30 D ILR SYS completed ICM Interrogation, Remote (Tech) Kenan Thakkar MD INTERROGATION EVAL REMOTE </30 D TECH REVIEW completed EKG Srinath Trinidad completed EKG Kenan Thakkar MD completed ePrescribe - Check t his box if eRx is used Kenan Thakkar MD completed Schedule Followup Lucho reddy MD FU in 6 months completed EKG Lucho trivedi MD completed Schedule Followup Lucho reddy MD fu with SK in 6 months completed EKG Lucho trivedi MD completed Schedule Followup Lucho reddy MD completed EKG Lucho trivedi MD completed Schedule Followup Lucho reddy MD completed EKG Lucho trivedi MD completed EKG Kenan Thakkar MD completed EKG Kenan Thakkar MD completed EKG Kenan Thakkar MD completed
--- OUTSIDE RECORDS SUMMARY | 2024-04-04 19:48 | XMS_ITS | Encounter Summary ---
Author Organization [facility] Address [address] [place] [id number] Care Team Providers Care Helpdesk Manager Name Role Phone Unavailable Primary Care Provider Unavailabl e Encounter Details Date Type Department Care Team (Late st Contact Info) Description 04/07/2021 Lab Requisition [facility] Testing [address] [id number] Brian Obrien MD [address] [place], [place] [id number] Social History Tobacco Use Types Packs/Day Years Used Date Smoking Tobacco: Never Assessed Comments Unknown Sex and Gender Information Value Date Recorded Sex Assigned at Not on file Legal Sex Female 2:03 PM [employer] Gender Identity Not on file Sexual Orientation Not on file documented as of this encounter Plan of Treatment Not on file documented as of this encounter Procedures Procedure Name Priority Date/Time Associated Diagnosis Comments SARS-COV-2 PCR [facility] ONLY Routine 04/03/2021 4:00 PM [employer] documented in this encounter Results * SARS-COV-2 PCR [facility] ONLY (04/03/2021 4:00 PM [employer]) [facility] SARS-COV-2 RNA NOT DETECTED 04/08/2021 9:44 AM [employer] [facility] Swab (Anterior Nares) COVID 19 Collection / Unknown 04/03/2021 4:00 PM [employer] 04/07/2021 9:28 PM [employer] us Brian Obrien MD MICROBIOLOGY - GENERAL ORDER RENE Final Result [facility] [address] [place] [address], [place] documented in this encounter Visit Diagnoses Not on filedocumented in this encounter
--- OUTSIDE RECORDS SUMMARY | 2024-04-04 19:48 | XMS_ITS | Encounter Summary ---
Author Organization [facility] Address [address] [place] [address] Care Team Providers Care General Manager Food Name Role Phone Bianca Aggarwal NP Primary Care Provider [phone] Bianca Aggarwal NP Unavailable [phone] Encounter Details Date Type Department Care Team (Late st Contact Info) Description 12/14/2023 Ancillary Procedure [facility] Outside Films Social History Tobacco Use Types Packs/Day Years [...] on file Legal Sex Female 8:41 AM [facility] Gender Identity Not on file Sexual Orientation Not on file documented as of this encounter Plan of Treatment Not on file documented as of this encounter Procedures Procedure Name Priority Date/Time Associated Diagnosis Comments XR TRANSFER OF OUTSIDE FILMS Routine 12/14/2023 12:00 AM CDT Diagnosis unknown documented in this encounter Results * XR Outside Reference (12/14/2023 12:00 AM CDT) Narrative [facility] - 01/03/2024 10:04 AM CDT This order has been auto-finalized and does not contain a result. us Not In File Miscellaneous IMG XR PROCEDURES Tegan l Result [facility] documented in this encounter Visit Diagnoses Not on filedocumented in this encounter Care Teams General Manager Food Relationship Specialty Start Date End Date Bianca Aggarwal NP [address] [place] [id number] PCP - General Nurse Practitioner 10/03/20 Bianca Aggarwal NP [address] [place] [phone] 10/03/20 documented as of this encounter
--- OUTSIDE RECORDS SUMMARY | 2024-04-04 19:48 | XMS_ITS | Encounter Summary ---
Author Organization [facility] Healthcare Address [address] [place] [address] Care Team Providers Care Poultry Hanger Name Role Phone Bianca Aggarwal NP Primary Care Provider [phone] Bianca Aggarwal NP Unavailable [phone] Reason for Referral * Consultation (Routine) - Closed Specialty Diagnoses / Procedures Referred By Janice vergara Referred To Contact Physical Therapy Diagnoses Greater trochanteric bursitis of left hip Go Jc MD [address] [place] [address] Phone: tel: fax: External Order Referral ID Status Reason Start Date Expiration Date V isits Requested Visits Authorized [id number] Closed Evaluate and Treat 01/03/2024 02/01/2025 24 24 Question Answer Reason for Visit Bursitis hip Location provided for therapy services is: Patient requested/Patient preferred Please select the performing region: External Order [171] # of visits: 24 * Procedure (Routine) - Authorized Specialty Diagnoses / Procedures Referred By Janice vergara Referred To Contact Diagnoses Greater trochanteric bursitis of left hip Procedures Large Joint (Hip, Knee, Shoulder) Injection: L greater trochanteric bursa Go Jc MD [address] [place] [address] Phone: tel: fax: [facility] Referral ID Status Reason Start Date Expiration Date V isits Requested Visits Authorized [id number] Authorized 01/03/2024 02/01/2025 1 1 Reason for Visit * Reason Comments 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 She fell at home around the 19 of October but states it is unrelated to her pain. Her pain is on the front of her hip and notes locking when she gets up. Pain with incline walking. She walks with a limp. She has good and bad days. 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 Gender Identity Not on file Sexual Orientation Not on file documented as of this encounter Last Filed Vital Signs Vital Sign Reading Time Taken Comments Blood Pressure - - Pulse - - Temperature - - Respiratory Rate - - Oxygen Saturation - - Inhaled Oxygen Concentration - - Weight 99.8 kg (220 lb) 01/03/2024 10:02 AM CDT Height 170.2 cm (5' 7 ) 01/03/2024 10:02 AM CDT Body Mass Index 34.46 01/03/2024 10:02 AM CDT documented in this encounter Progress Notes * Go Jc MD - 01/03/2024 10:15 AM CDTAssociated Order(s): Large Joint (Hip, Knee, Shoulder) Injection: L greater trochanteric bursa Post-Procedure Diagnose(s): Greater trochanteric bursitis of left hip Images from the original note were not included. 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 She fell at home around the 19 of October but states it is unrelated to her pain. Her pain is on the front of her hip and notes locking when she gets up. Pain with incline walking. She walks with a limp. Shehas good and bad days. ). HISTORY OF PRESENT ILLNESS As in chief complaint The patient is a 68-year-old female who is seen today for evaluation of left hip pain. She has beensymptomatic now for about 3 months or so. She describes mechanical symptoms such as catching and popping and locking of her hip. She indicates groin pain. She did have a dose of prednisone which she said helped a little bit she does not really have any classic sciatica type symptoms no numbness no tingling no radiation of the pain. She does also have pain when she lies on her side. PAST MEDCIAL HISTORY She has a past medical history of A-fib ([facility]) ([facility]), Diverticulitis, Hyperlipidemia, Hyperlipidemia, Hypertension, Motion sickness, Osteoporosis, PONV (postoperative nausea and vomiting), Sleep apnea, and VT (ventricular tachycardia) ([facility]). She has no past medical history of Malignant hyperthermia. PAST SURGICAL HISTORY She has a past surgical history that includes Cholecystectomy; Insert / replace / remove pacemaker;Knee Arthroplasty; Foot surgery; Fibula Fracture Surgery; ablation; and Hysterectomy. MEDICATIONS She has a current medication list which includes the following prescription(s): alendronate, apixaban, celecoxib, estradiol, furosemide, lisinopril, magnesium, tramadol, vitamins a,c,b-cwmj-dgchor, amlodipine, atorvastatin, cephalexin, fludrocortisone, hyoscyamine, meclizine, potassium chloride, sotalol, spironolactone, and vibegron. ALLERGIES She is allergic to flecainide, iodine, latex, and morphine. SOCIAL HISTORY She reports that she has never smoked. She does not have any smokeless tobacco history on file. No alcohol history on file. FAMILY HISTORY Her family history includes Blood Clot in an other family member; Heart disease in an other family member; No Known Problems in her father and mother. Objective PHYSICAL EXAM Examination of the patient's lower extremity was performed in the office today.The neurovascular examination of the extremities is intact. There is intact capillary refill in both extremities and there are palpable pulses distally. Sensation is intact to light touch throughout the entire lower extre mity and there is intact motor function in all muscle groups. There is no heat, or redness, or swelling. Her hip range of motion is fairly good. She has mild discomfort with extremes of motion. She does have pain with palpation directly over her greater trochanter. She does not have pain over the sciatic notch or SI joint or ischium. REVIEW OF X-RAYS/STUDIES/LABS Today I reviewed x-rays that the patient brought with her. They show that her joint space appears to be relatively well preserved. I do not see any other secondary signs of osteoarthritis. She has ifat best mild joint space narrowing. Assessment/Plan Diagnoses and all orders for this visit: Greater trochanteric bursitis of left hip (Primary) Large Joint (Hip, Knee, Shoulder) Injection: L greater trochanteric bursa Performed by: Go Jc MD Authorized by: Go Jc MD Large Joint Injection/Aspiration: Consent Given by: Patient Timeout: prior to procedure the correct patient, procedure, and site was verified Verbal consent obtained: Yes Supporting Documentation: Indications: Pain Procedure Details: Location: Hip Site: L greater trochanteric bursa Prep: patient was prepped and draped in usual sterile fashion Needle Size: 21 G Approach: Lateral Ultrasound guided: Yes Ultrasound guidance used for: Real-time guidance Medications: 2 mL lidocaine 10 mg/mL (1 %); 40 mg triamcinolone 40 mg/mL Patient tolerance: Patient tolerated the procedure well with no immediate complications PLAN The patient's symptoms do not seem to be entirely consistent with osteoarthritis. She is having mechanical symptoms in the hip but I do not see any obvious signs of loose bodies in the hip joint. An MRI scan might be useful although the patient does have a pacemaker. Overall I think her symptoms may actually be coming from trochanteric bursitis. She is very tender directly over the trochanteric bursa. So today we discussed treatment options for this. In options include anti-inflammatory medications, cortisone injections, and physical therapy. She already is taking anti-inflammatory medications including Celebrex. We elected to inject her trochanteric bursa with cortisone and local anesthetic as both diagnostic and therapeutic treatment. I also wrote a prescription for physical therapy. Wewill see her back if she has persistent symptoms. If she does have persistent symptoms then we might want to see if we can get an MRI scan. Go Jc MD documented in this encounter Plan of Treatment Scheduled Referrals Name Type Priority Associated Diagnoses Orde r Schedule Ambulatory referral order to Physical Therapy - Outpatient Referral Routine Greater trochanteric bursitis of left hip Ordered: 01/03/2024 documented as of this encounter Procedures Procedure Name Priority Date/Time Associated Diagnosis Comments RI ARTHROCENTESIS ASPIR&/INJ MAJOR JT/BURSA W/US Routine 01/03/2024 10:15 AM CDT Greater trochanteric bursitis of left hip documented in this encounter Results * RI ARTHROCENTESIS ASPIR&/INJ MAJOR JT/BURSA W/US (01/03/2024 10:15 AM CDT) Narrative Go Jc MD - 01/03/2024 10:15 AM CDT Go Jc MD ? 01/03/2024 10:42 AM Large Joint (Hip, Knee, Shoulder) Injection: L greater trochanteric bursa Performed by: Go Jc MD Authorized by: Go Jc MD ?? Large Joint Injection/Aspiration: ??Consent Given by: ??Patient ??Timeout: prior to procedure the correct patient, procedure, and site was verified ?Verbal consent obtained: Yes ?? Supporting Documentation: ??Indications: ??Pain Procedure Details: ??Location: ??Hip ??Site: ??L greater trochanteric bursa ??Prep: patient was prepped and draped in usual sterile fashion ?Needle Size: ??21 G ??Approach: ??Lateral ??Ultrasound guided: Yes ?Ultrasound guidance used for: ??Real-time guidance ??Medications: ??2 mL lidocaine 10 mg/mL (1 %); 40 mg triamcinolone 40 mg/mL ??Patient tolerance: ??Patient tolerated the procedure well with no immediate complications us Go Jc MD IN CLINIC/BEDSIDE ORDERAB LES Final Result documented in this encounter Visit Diagnoses Diagnosis Greater trochanteric bursitis of left hip- Primary documented in this encounter Administered Medications Inactive Administered Medications - up to 3 most recent administrations Medication Order MAR Action Action Date Dose Rate Site lidocaine (XYLOCAINE) 10 mg/mL (1 %) injection 2 mL 2 mL, One-Time Injection, Starting on Tue01/03/24 at 1015, For 1 dose, Indications: Administration of Local AnesthesiaIndications:Administr ation of Local Anesthesia Given 01/03/2024 10:15 AM CDT 2 mL Left Hip triamcinolone (KENALOG) 40 mg/mL injection 40 mg 40 mg, intra-articular, One-Time Injection, Starting on Tue01/03/24 at 1015, For 1 doseIndications:Greater trochanteric bursitis of left hip Given 01/03/2024 10:15 AM CDT 40 mg Left Hip documented in this encounter Care Teams Poultry Hanger Relationship Specialty Start Date End Date Bianca Aggarwal NP [address] [place] [id number] PCP - General Nurse Practitioner 10/03/20 Bianca Aggarwal NP [address] [place] [address] 10/03/20 documented as of this encounter
--- OUTSIDE RECORDS SUMMARY | 2024-04-04 19:49 | XMS_ITS | Encounter Summary ---
Author Organization [facility] Healthcare Address [address] [place] [address] Care Team Providers Care Pest Control Service Sales Agent Name Role Phone Bianca Aggarwal NP Primary Care Provider [phone] Reason for Visit * Reason Comments Leg Pain Encounter Details Date Type Department Care Team (Late st Contact Info) Description 05/25/2020 12:04 PM PHYSICIAN PRESIDENT - 05/25/2020 2:23 PM [facility] Emergency Department [address] [place] [address] [place] [id number] [place] [address] [id number] [place], [place] [id number] Left leg pain (Primary Dx) Discharge Disposition: Discharge to home or self care Social History Tobacco Use Types Packs/Day Years Used Date Smoking Tobacco: Never Comments No Sex and Gender Information Value Date Recorded Sex Assigned at Not on file Legal Sex Female 8:41 AM PHYSICIAN PRESIDENT Gender Identity Not on file Sexual Orientation Not on file documented as of this encounter Last Filed Vital Signs Vital Sign Reading Time Taken Comments Blood Pressure 155/62 05/25/2020 2:05 PM PHYSICIAN PRESIDENT Pulse 66 05/25/2020 2:05 PM PHYSICIAN PRESIDENT Temperature 36.5 ??C (97.7 ??F) 05/25/2020 12:[address] Respiratory Rate 13 05/25/2020 2:05 PM PHYSICIAN PRESIDENT Oxygen Saturation 97% 05/25/2020 2:05 PM PHYSICIAN PRESIDENT Inhaled Oxygen Concentration - - Weight 99.8 kg (220 lb) 05/25/2020 12:00 PM PHYSICIAN PRESIDENT Height 170.2 cm (5' 7 ) 05/25/2020 12:00 PM PHYSICIAN PRESIDENT Body Mass Index 34.46 05/25/2020 12:00 PM PHYSICIAN PRESIDENT documented in this encounter Discharge Diagnoses Diagnosis Pain in left lower leg - PAIN IN LEFT LOWER LEG Hyperlipidemia, unspecified - HYPERLIPIDEMIA, UNSPECIFIED Unspecified atrial fibrillation (HCC) - UNSPECIFIED ATRIAL FIBRILLATION Age-related osteoporosis without current pathological fracture - AGE-RELATED OSTEOPOROSIS WITHOUT CURRENT PATHOLOGICAL FRACTURE documented in this encounter Discharge Instructions * Discharge Instructions* Josephine Baeza NP - 05/25/2020 2:00 PM PHYSICIAN PRESIDENT Do not hesitate to return to the emergency department for any worsening condition or other concerns. ICIAN PRESIDENT * Attachments The following attachments cannot be sent through Care Everywhere. * RICE (Azerbaijani) documented in this encounter Medications at Time of Discharge HYDROcodone-aceta minophen (NORCO) 5-325 mg per tabletIndications :Pain Take 1 tablet by mouth every 4 (four) hours as needed for pain Do not exceed 8 tablets/day. 20 tablet 05/25/2020 12/08/2020 documented as of this encounter Ordered Prescriptions Prescription Sig Dispense Quantity Refills Last Filled Start Date End Date HYDROcodone-acetam inophen (NORCO) 5-325 mg per tabletIndications: Pain Take 1 tablet by mouth every 4 (four) hours as needed for pain Do not exceed 8 tablets/day. 20 tablet 05/25/2020 12/08/2020 documented in this encounter Discharge Disposition Disposition Code Departure Means Destination Discharge to home or self care documented in this encounter ED Notes * Josephine Baeza NP - 05/25/2020 1:23 PM CST HPI Chief Complaint Patient presents with ??? Leg Pain 65yr old female presents with complaint of left lower leg pain for the past 2 days, without injury,that is now radiating up her leg. She is taking Eliquis and has a doppler scheduled for tomorrow but states the pain is terrible and worse with ambulation as well as tender to touch. Denies any chestpain or SOB. No weakness or dizziness or diaphoresis. No other complaints. Patient History: Patient Active Problem List Diagnosis Date Noted ??? Atrial fibrillation (CMS/HCC) 04/04/2013 Class: Chronic ??? Palpitations 04/04/2013 Class: Chronic Past Medical History: Diagnosis Date ??? A-fib (CMS/HCC) ??? Diverticulitis ??? Hyperlipidemia ??? Osteoporosis ??? VT (ventricular tachycardia) (CMS/HCC) Past Surgical History: Procedure Laterality Date ??? CHOLECYSTECTOMY No family history on file. Social History Tobacco Use ??? Smoking status: Never Smoker Substance Use Topics ??? Alcohol use: Not on file ??? Drug use: Not on file Social History Social History Narrative ??? Not on file Review of Systems Review of Systems Constitutional: Negative for chills and fever. Respiratory: Negative for chest tightness and shortness of breath. Cardiovascular: Negative for chest pain, palpitations and leg swelling. Gastrointestinal: Negative for nausea and vomiting. Musculoskeletal: Left lower leg pain Skin: Negative for color change, pallor, rash and wound. Neurological: Negative for dizziness, weakness, light-headedness and numbness. All other systems reviewed and are negative. Physical Exam ED Triage Vitals [05/25/20 1200] Temp Pulse Resp BP SpO2 36.5 ??C (97.7 ??F) 71 18 (!) 212/110 98 % Temp src Heart Rate Source Patient Position BP Location FiO2 (%) Oral -- -- -- -- Physical Exam Vitals signs and nursing note reviewed. Constitutional: General: She is not in acute distress. Appearance: She is well-developed. She is not ill-appearing or diaphoretic. HENT: Head: Normocephalic and atraumatic. Right Ear: External ear normal. Left Ear: External ear normal. Nose: Nose normal. Mouth/Throat: Pharynx: No oropharyngeal exudate or posterior oropharyngeal erythema. Eyes: General: Right eye: No discharge. Left eye: No discharge. Extraocular Movements: Extraocular movements intact. Conjunctiva/sclera: Conjunctivae normal. Pupils: Pupils are equal, round, and reactive to light. Neck: Musculoskeletal: Normal range of motion and neck supple. Cardiovascular: Rate and Rhythm: Normal rate and regular rhythm. Heart sounds: No murmur. Pulmonary: Effort: Pulmonary effort is normal. No respiratory distress. Breath sounds: Normal breath sounds. No wheezing or rales. Chest: Chest wall: No tenderness. Abdominal: General: Bowel sounds are normal. There is no distension. Palpations: Abdomen is soft. Tenderness: There is no abdominal tenderness. Musculoskeletal: Normal range of motion. General: Tenderness present. No swelling or signs of injury. Right lower leg: No edema. Left lower leg: No edema. Comments: There is TTP to the medial anterior lower left leg without swelling or erythema. No calf pain. Negative homans sign. Normal pedal pulse. Brisk capillary refill. Sensation is intact. Lymphadenopathy: Cervical: No cervical adenopathy. Skin: General: Skin is warm and dry. Capillary Refill: Capillary refill takes less than 2 seconds. Findings: No erythema or rash. Neurological: Mental Status: She is alert and oriented to person, place, and time. MDM Medical Decision Making I have independently reviewed xray/CT(s). Interpretation:: The patient has been informed of all laboratory and/or radiology relevant and incidental findings, and the appropriate recommended follow-up. Patient has been advised to return to the ED with any new or worsening symptoms. The pain appears more muscular in nature and the patient states she will also call her orthopedic surgeon tomorrow. Patient verbalizes understanding and agreement with plan. All questions have been addressed at this time. Final diagnoses: Left leg pain Josephine Baeza NP 05/25/20 1329 Josephine Baeza NP 05/25/20 1402 Cosigned by Tru Darnell MD at 05/25/2020 2:51 PM PHYSICIAN PRESIDENT ICIAN PRESIDENT ICIAN PRESIDENT ICIAN PRESIDENT * Maria De Jesus Julio - 05/25/2020 11:58 AM CST Pt presents to triage with complaints of left calf pain for about a week. Pt has seen PCP for this and has a doppler scheduled for tomorrow. Pt on blood thinners ICIAN PRESIDENT documented in this encounter Plan of Treatment Not on file documented as of this encounter Procedures Procedure Name Priority Date/Time Associated Diagnosis Comments INFLUENZA A/B, RSV, AND COVID-19 PCR Routine 05/25/2020 12:42 PM PHYSICIAN PRESIDENT EGFR STAT 05/25/2020 12:42 PM PHYSICIAN PRESIDENT DIFFERENTIAL AUTO STAT 05/25/2020 12: 42 PM PHYSICIAN PRESIDENT URINALYSIS AND REFLEX TO MICROSCOPIC AND CULTURE STAT 05/25/2020 12:42 PM PHYSICIAN PRESIDENT CBC WITH AUTO DIFFERENTIAL STAT 05/25/2020 12:42 PM PHYSICIAN PRESIDENT COMPREHENSIVE METABOLIC PANEL STAT 05/25/2020 12:42 PM PHYSICIAN PRESIDENT documented in this encounter Results * eGFR (05/25/2020 12:42 PM PHYSICIAN PRESIDENT) eGFR 100 mL/min/1.7 3 m2 [facility] Comment: Interpretive Data Reference Interval Normal ?>/= 90 mL/min/1.73m2 Mildly decreased* ? 60 - 89 mL/min/1.73m2 Mildly to moderately decreased ?45 - 59 mL/min/1.73m2 Moderately to severely decreased ??30 - 44 mL/min/1.73m2 Severely decreased ?15 - 29 mL/min/1.73m2 Kidney Failure ?< 15 ??mL/min/1.73m2 *Relative to young adult level Estimated glomerular filtration rate is determined by the CKD-EPI equation recommended by the National Kidney Foundation (KDIGO 2012 Clinical Practice Guideline for the Evaluation and Management of Chronic Kidney Disease. Kidney Intnl Suppl Apr 2012;3:1). The CKD-EPI equation should not be used for patients with unstable renal function and has not been validated in children and those over 70. Current interpretive data was last reviewed 2020 Blood specimen (specimen) 05/25/2020 12:42 PM PHYSICIAN PRESIDENT 05/25/2020 12:48 PM PHYSICIAN PRESIDENT us Josephine Baeza NP LAB BLOOD ORDERABLES Final R esult [facility] [address] Department [place] [address] * Differential, auto (05/25/2020 12:42 PM PHYSICIAN PRESIDENT) Neutrophil abs 3.7 1.7 - 6.5 K/cumm [facility] Imm gran abs 0.0 0.0 - 0.1 K/cumm [facility] Lymphocyte abs 1.1 0.8 - 3.3 K/cumm [facility] Monocyte abs 0.7 0.2 - 0.8 K/cumm [facility] Eosinophil abs 0.1 0.0 - 0.5 K/cumm [facility] Basophil abs 0.0 0.0 - 0.1 K/cumm [facility] Neutrophil pct 65.2 % [facility] Comment: Interpretive Data Percent cell count reference ranges are not reported, since discordance with absolute values may lead to misinterpretation of CBC data. Current Interpretive Data was last revised on 2017. Imm gran pct 0.4 % [facility] Comment: Interpretive Data Percent cell count reference ranges are not reported, since discordance with absolute values may lead to misinterpretation of CBC data. Current Interpretive Data was last revised on 2017. Lymphocyte pct 19.8 % [facility] Comment: Interpretive Data Percent cell count reference ranges are not reported, since discordance with absolute values may lead to misinterpretation of CBC data. Current Interpretive Data was last revised on 2017. Monocyte pct 12.0 % [facility] Comment: Interpretive Data Percent cell count reference ranges are not reported, since discordance with absolute values may lead to misinterpretation of CBC data. Current Interpretive Data was last revised on 2017. Eosinophil pct 2.1 % [facility] Comment: Interpretive Data Percent cell count reference ranges are not reported, since discordance with absolute values may lead to misinterpretation of CBC data. Current Interpretive Data was last revised on 2017. Basophil pct 0.5 % [facility] Comment: Interpretive Data Percent cell count reference ranges are not reported, since discordance with absolute values may lead to misinterpretation of CBC data. Current Interpretive Data was last revised on 2017. Blood specimen (specimen) 05/25/2020 12:42 PM PHYSICIAN PRESIDENT 05/25/2020 12:48 PM PHYSICIAN PRESIDENT us Josephine Baeza JUICE PACKAGING MACHINES SETTER LAB BLOOD ORDERABLES Final R esult [facility] [address] Department [place] [address] * Influenza A/B, RSV, and COVID-19 PCR Nasopharyngeal (05/25/2020 12:42 PM PHYSICIAN PRESIDENT) COVID-19 RNA Negative Negative [facility] Comment: Interpretive data: Synonyms for this test include: PCR and NAAT . ??This test is performed using the [employer] Xpert Xpress assay. This is a real-time RT-PCR test intended for the qualitative detection of nucleic acid from the SARS-CoV-2. This assay has been reviewed by the FDA for Emergency Use Authorization (EUA). The performance characteristics have been verified by the performing laboratory. Results must be considered in the clinical context and a negative result does not rule out infection. Interpretive data last revised May 22, 2020. Influenza A RNA Negative Negative [facility] Influenza B RNA Negative Negative [facility] RSV RNA Negative Negative [facility] Comment: Interpretive data: This test is performed using the [employer] Xpert Assay. This is a multiplex, real- time reverse transcriptase PCR assay that detects influenza A, influenza B, and respiratory syncytial virus RNA. This assay has been cleared by the US Food and Drug Administration, and its performance characteristics have been verified by the performing laboratory. ?? Interpretive data last revised 2020. Employeed in healthcare? No GERALD status? No [facility] Group care resident? No [facility] Hospitalized? No [facility] Is patient in ICU? No [facility] Symptomatic as defined by CDC? Yes [facility] Nasopharyngeal 05/25/2020 12 :42 PM PHYSICIAN PRESIDENT 05/25/2020 12:47 PM PHYSICIAN PRESIDENT Narrative [facility] - 05/25/2020 1:42 PM PHYSICIAN PRESIDENT Date of symptom onset->05/23/20 Known exposure to confirmed or suspected COVID-19 case?->Yes Josephine Baeza NP LAB MICROBIOLOGY - GENERAL [place] [address] [facility] Department [place] [address] * (ABNORMAL) Urinalysis reflex to microscopic and culture Urine (05/25/2020 12:42 PM PHYSICIAN PRESIDENT) Color, ur Yellow Yellow [facility] Clarity, ur Clear Clear [facility] Specific gravity, ur 1.008(L) 1.010 - 1.025 [facility] pH, urine 8.0 [facility] Protein, ur ql Negative Negative [facility] Glucose, ur ql Negative Negative [facility] Ketones, ur Negative Negative [facility] Bilirubin, ur Negative Negative [facility] Blood, ur Negative Negative [facility] Urobilinogen, ur <2.0 <2.0 mg/dL [facility] Nitrite, ur Negative Negative [facility] Leukocyte esterase, ur Negative Negative [facility] UA reflex comment Reflex conditions for microscopic UA and culture not met. [facility] Urine 05/25/2020 12:4 2 PM PHYSICIAN PRESIDENT 05/25/2020 12:48 PM PHYSICIAN PRESIDENT Narrative [facility] - 05/25/2020 12:54 PM PHYSICIAN PRESIDENT ?? Urine pH is affected by diet, medications, systemic acid-base disturbances, and renal tubular function. ??pH may affect urinary stone formation. ??For example, urine pH below 6.0 may help reduce the tendency for calcium phosphate stones and pH greater than 6.0 may reduce the tendency for uric acid stone formation. Source: [employer] Last revised 04-28-2017 us Josephine Baeza NP LAB MICROBIOLOGY - GENERAL O RDERABLES Final Result Performing Organization Address City/[facility]/ZIP Co de Phone Number [facility] [address] Department [place] [address] * (ABNORMAL) Comprehensive metabolic panel (05/25/2020 12:42 PM PHYSICIAN PRESIDENT) Sodium 141 135 - 145 mmol/L [facility] Potassium, pl 3.7 3.3 - 4.9 mmol/L [facility] Chloride 104 97 - 110 mmol/L [facility] CO2 28 22 - 32 mmol/L [facility] Anion gap 9 2 - 15 mmol/L [facility] BUN 8 8 - 25 mg/dL [facility] Creatinine 0.53(L) 0.60 - 1.10 mg/dL [facility] Glucose 85 70 - 199 mg/dL [facility] Comment: Interpretive Data Fasting glucose >/= 126 mg/dl is diagnostic for diabetes. ?? Fasting is defined as no caloric intake for at least 8 hours. Fasting glucose between 100 mg/dl to 125 mg/dl is diagnostic of prediabetes. In a patient with classic symptoms of hyperglycemia or hyperglycemic crisis, a random glucose >/= 200 mg/dl is diagnostic for diabetes. In the absence of unequivocal hyperglycemia, results should be confirmed by repeat testing. The classification and Diagnosis of Diabetes Diabetes Care 2017;40 (Suppl. 1):S11. Current interpretive data was last revised 2017. Calcium 8.4(L) 8.5 - 10.3 mg/dL [facility] Bilirubin, total 0.6 0.1 - 1.2 mg/dL [facility] Protein, pl 7.2 6.5 - 8.5 g/dL [facility] Albumin 3.6 3.5 - 5.0 g/dL [facility] Alk phos 168(H) 40 - 130 Units/L [facility] ALT 17 7 - 45 Units/L [facility] AST 25 10 - 45 Units/L [facility] Blood specimen (specimen) 05/25/2020 12:42 PM PHYSICIAN PRESIDENT 05/25/2020 12:48 PM PHYSICIAN PRESIDENT Josephine Baeza NP LAB BLOOD ORDERABLES Final R esult [facility] [address] Department [place] [address] * (ABNORMAL) CBC with auto differential (05/25/2020 12:42 PM PHYSICIAN PRESIDENT) WBC 5.7 3.8 - 9.9 K/cumm [facility] Hgb 14.5 11.9 - 15.5 g/dL [facility] Hct 44.9 35.6 - 45.5 % [facility] Plt 260 150 - 400 K/cumm [facility] MPV 9.5 9.1 - 12.3 fL [facility] RBC 4.85 3.90 - 5.20 M/cumm [facility] MCV 92.6 81.3 - 96.4 fL [facility] MCH 29.9 27.1 - 33.3 pg [facility] MCHC 32.3 32.3 - 35.7 g/dL [facility] RDW CV 14.3 11.1 - 14.9 % [facility] RDW SD 48.5(H) 35.7 - 48.1 fL [facility] NRBC abs 0.00 0.00 - 0.01 K/cumm [facility] Blood specimen (specimen) 05/25/2020 12:42 PM PHYSICIAN PRESIDENT 05/25/2020 12:48 PM PHYSICIAN PRESIDENT Josephine Baeza NP LAB BLOOD ORDERABLES Final R esult [facility] [address] Department [place] [address] documented in this encounter Visit Diagnoses Diagnosis Left leg pain- Primary Pain in soft tissues of limb documented in this encounter Administered Medications Inactive Administered Medications - up to 3 most recent administrations Medication Order MAR Action Action Date Dose Rate Site HYDROcodone-acetaminophen (NORCO) 5-325 mg per tablet 1 tablet 1 tablet, oral, Once, On 05/25/20 at 1236, For 1 dose, Indications: PainIndications:Pain Given 05/25/2020 12:40 PM PHYSICIAN PRESIDENT 1 tablet documented in this encounter Active and Recently Administered Medications Times are shown in PHYSICIAN PRESIDENT. Scheduled Medication Order 05/23/2020 05/24/2020 05/25/2020 HYDROcodone-acetaminophen (NORCO) 5-325 mg per tablet 1 tablet (COMPLETED) 1 tablet, oral, Once, On 05/25/20 at 1236, For 1 dose, Indications: Pain 1240 (Given - Provid er: Johanna Guillen RN) documented in this encounter Additional Health Concerns Infection Onset Date Last Indicated Resolved Time Exposure, COVID-19 05/25/2020 05/25/2020 3:06 AM PHYSICIAN PRESIDENT COVID: Suspected 05/25/2020 05/25/2020 05/25/2020 1:43 PM PHYSICIAN PRESIDENT Respiratory Infection (DOMINGO), contact + droplet Comment:Automatically added due to negative COVID-19 result. 05/25/2020 05/25/2020 06/08/2020 3:0 6 AM PHYSICIAN PRESIDENT documented as of this encounter Care Teams Pest Control Service Sales Agent Relationship Specialty Start Date End Date Bianca Aggarwal NP [address] [place] [id number] PCP - General 05/25/20 10/02/20 documented as of this encounter
--- OUTSIDE RECORDS SUMMARY | 2024-04-04 19:49 | XMS_ITS | Encounter Summary ---
Author Organization [facility] Healthcare Address [address] [place] [address] Care Team Providers Care Nonprofit Financial Controller Name Role Phone Unavailable Primary Care Provider Unavailabl e Encounter Details Date Type Department Care Team (Late st Contact Info) Description 01/12/2011 12:43 PM CDT - 01/12/2011 11:59 PM CDT Hospital Encounter [facility] CLINCONV Atrial fibrillation (CMS/HCC) (HCC); Sleep apnea; Essential hypertension; Other specified cardiac dysrhythmias Social History Tobacco Use Types Packs/Day Years Used Date Smoking Tobacco: Never Assessed Comments Unknown Sex and Gender Information Value Date Recorded Sex Assigned at Not on file 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
--- OUTSIDE RECORDS SUMMARY | 2024-04-04 19:49 | XMS_ITS | Encounter Summary ---
Author Organization [facility] Healthcare Address [address] [place] [address] Care Team Providers Care Raisin Separator Operator Name Role Phone Unavailable Primary Care Provider Unavailabl e Encounter Details Date Type Department Care Team (Late st Contact Info) Description 01/07/2011 12:01 AM CDT - 01/07/2011 11:59 PM T Hospital Encounter [facility] BIJUCONLucho Wells MD [address] [place] [address] Inflammatory polyarthropathy (CMS/HCC) (HCC); Enthesopathy; Myalgia and myositis; Other malaise and fatigue; Atrial fibrillation (CMS/HCC) (HCC) Social History Tobacco Use Types Packs/Day Years Used Date Smoking Tobacco: Never Assessed Comments Unknown Sex and Gender Information Value Date Recorded Sex Assigned at Not on file Legal Sex Female 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
--- OUTSIDE RECORDS SUMMARY | 2024-04-04 19:49 | XMS_ITS | Encounter Summary ---
Author Organization [facility] Address [address] [facility] [facility] [address] [place] [address] Care Team Providers Care Professor Of Psychology Name Role Phone Bianca Aggarwal NP Primary Care Provider [phone] Bianca Aggarwal NP Unavailable [phone] Reason for Visit * Reason Comments New Patient varicose veins Encounter Details Date Type Department Care Team (Late st Contact Info) Description 10/16/2020 10:15 AM CDT Office Visit [facility] [address] [place] [address] [address] [place] [address] [place] [address] [address] Swelling, limb (Primary Dx) Social History Tobacco Use Types Packs/Day Years Used Date Smoking Tobacco: Never Comments No Sex and Gender Information Value Date Recorded Sex Assigned at Not on file 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 Gender Identity Not on file Sexual Orientation Not on file documented as of this encounter Last Filed Vital Signs Vital Sign Reading Time Taken Comments Blood Pressure - - Pulse - - Temperature - - Respiratory Rate - - Oxygen Saturation - - Inhaled Oxygen Concentration - - Weight 95.3 kg (210 lb) 10/16/2020 10:22 AM CDT Height 173.7 cm (5' 8.4 ) 10/16/2020 10:22 AM CD T Body Mass Index 31.56 10/16/2020 10:22 AM CDT documented in this encounter Progress Notes * Jamil Dejesus MD - 10/16/2020 10:15 AM CDT [facility] Brenna Chatterjee CONSULTATION 10/16/2020 OV: Consultation regarding left leg pain. Chief Complaint. Chief Complaint Patient presents with ??? New Patient varicose veins HPI. Patient is a 65 y.o. female patient who has long walk up until 0 9 with severe trauma course and her left leg. Soon thereafter she developed some ecchymosis swelling got worse where she can barely stand on it. She denies any trauma. She is a longstanding patient of Dr. Noland. She underwent venous duplex under television receiver analyzer office which was apparently negative for DVT. I do not have the reports. I do see it commented on office visits. She apparently had her left knee drained. Significant fluid was drained from there as well. She had elevated inflammatory markers where she saw Dr. Richey. The pain is slowly getting better. It is not worsened with ambulation. Rest does not make it better. Stretching makes it worse. She denies any history of varicosities in the left leg. She has some mild varicose veins on the contralateral leg. She has also had an MRI which does show some edema but nosignificant muscle injury or fluid collection. No bony abnormalities were also noted Past Medical History: Diagnosis Date ??? A-fib (CMS/HCC) ??? Diverticulitis ??? Hyperlipidemia ??? Osteoporosis ??? VT (ventricular tachycardia) (CMS/HCC) Past Surgical History: Procedure Laterality Date ??? CHOLECYSTECTOMY HOME MEDICATIONS : alendronate (FOSAMAX) 35 mg tablet apixaban (ELIQUIS) 5 mg tablet atorvastatin (LIPITOR) 80 mg tablet celecoxib (CeleBREX) 200 mg capsule estradioL (ESTRACE) 0.5 mg tablet fludrocortisone 0.1 mg tablet lisinopriL (PRINIVIL,ZESTRIL) 40 mg tablet magnesium (MAGTAB) 84 mg extended release tablet meclizine (ANTIVERT) 25 mg tablet mirabegron ER (MYRBETRIQ) 50 mg tablet extended release 24 hr omeprazole (PriLOSEC) 40 mg capsule oxybutynin XL (DITROPAN-XL) 10 mg 24 hr tablet potassium chloride (KLOR-CON) 20 mEq packet sotaloL (BETAPACE) 80 mg tablet traMADoL (ULTRAM) 50 mg tablet vitamins A,C,X-nava-wgajgo 7,160-113-100 aavf-dk-wgdi tablet,delayed release (DR/EC) HYDROcodone-acetaminophen (NORCO) 5-325 mg per tablet Allergies Allergen Reactions ??? Flecainide Other (See comments) and Palpitations ??? Morphine Social History Tobacco Use ??? Smoking status: Never Smoker Substance Use Topics ??? Alcohol use: Not on file No family history on file. Review of Systems Constitutional: Positive for activity change. Negative for appetite change and chills. Eyes: Negative for visual disturbance. Respiratory: Negative for choking. Cardiovascular: Negative for chest pain. Gastrointestinal: Negative for abdominal pain. Genitourinary: Negative for dysuria. Musculoskeletal: Positive for gait problem and joint swelling. Skin: Negative for rash. Neurological: Negative for light-headedness and headaches. Psychiatric/Behavioral: Negative for confusion and self-injury. All other systems reviewed and are negative. Physical Exam: Patient is age appropriate, no acute distress Head and neck exam shows normal cephalic. No evidence of trauma Eyes show pupils equal and reactive No focal neurologic findings Heart rate is regular, no murmurs Breathing is unlabored and symmetric Abdomen is soft, nontender, no organomegaly felt. No strong aortic pulsations, lower extremities are warm and pink. Palpable femoral and distal pulses. No ulcers noted in the lower extremity No swelling Radiology and Laboratory. Reports reviewed as stated above Impression and Recommendations. Patient does not appear to have any vascular compromise as a cause of her pain. Her arterial circulation is intact. She has no overt varicosities seen. She is tender to palpation. Whether this may represent a ruptured cyst or other musculoskeletal issue. Her issues do not appear to be vascular in nature. She can continue to wear compression stockings for comfort, but no further vascular intervention would appear to not be helpful. Jamil Dejesus MD FACS documented in this encounter Plan of Treatment Not on file documented as of this encounter Visit Diagnoses Diagnosis Swelling, limb- Primary Swelling of limb documented in this encounter Historical Medications * This list may reflect changes made after this encounter. alendronate (FOSAMAX) 35 mg tabletIndications: Post-Menopausal Osteoporosis Prevention Take 1 tablet (35 mg total) by mouth every 7 days Take in the morning with a full glass of water, on an empty stomach, and do not take anything else by mouth or lie down for the next 30 min. vitamins A,C,U-cdge-pozlsl 7,160-113-100 pwdw-lu-hswo tablet,delayed release (DR/EC) Take by mouth 2 (two) times a day lisinopriL (PRINIVIL,ZESTRIL) 40 mg tablet Take 10 mg by mouth daily atorvastatin (LIPITOR) 80 mg tablet Take 1 tablet (80 mg total) by mouth daily fludrocortisone 0.1 mg tablet Take 1 tablet (0.1 mg total) by mouth daily celecoxib (CeleBREX) 200 mg capsule Take 1 capsule (200 mg total) by mouth 2 (two) times a day sotaloL (BETAPACE) 80 mg tablet Take 0.5 tablets (40 mg total) by mouth 2 (two) times a day apixaban (ELIQUIS) 5 mg tablet 1 tablet (5 mg total) 2 (two) times a day magnesium (MAGTAB) 84 mg extended release tablet Take 1 tablet (84 mg total) by mouth daily potassium chloride (KLOR-CON) 20 mEq packet Take 1 packet (20 mEq total) by mouth daily meclizine (ANTIVERT) 25 mg tablet Take 1 tablet (25 mg total) by mouth daily estradioL (ESTRACE) 0.5 mg tablet Take 3 tablets (1.5 mg total) by mouth daily traMADoL (ULTRAM) 50 mg tablet Take 1 tablet (50 mg total) by mouth every 6 (six) hours mirabegron ER (MYRBETRIQ) 50 mg tablet extended release 24 hr 50 mg daily 1 oxybutynin XL (DITROPAN-XL) 10 mg 24 hr tablet Take 10 mg by mouth daily 1 omeprazole (PriLOSEC) 40 mg capsule Take 40 mg by mouth daily 4 added in this encounter Care Teams Professor Of Psychology Relationship Specialty Start Date End Date Bianca Aggarwal NP [address] [place] [address] PCP - General Nurse Practitioner 10/03/20 Bianca Aggarwal NP [address] [place] [address] 10/03/20 documented as of this encounter
--- OUTSIDE RECORDS SUMMARY | 2024-04-04 19:49 | XMS_ITS | Encounter Summary ---
Author Organization [facility] Address [address] [place] [address] Phone Care Team Providers Care Skylights Assembler Name Role Phone Bianca Aggarwal NP Primary Care Provider [phone] Bianca Aggarwal NP Unavailable [phone] Reason for Visit * Reason Comments Dizziness Encounter Details Date Type Department Care Team (Late st Contact Info) Description 12/08/2020 2:40 PM CDT Office Visit [facility]) - [facility] E[facility] [address] [facility] [address] [place] [address] [place] [id number] [place] [address] [address] [place] [address] Peripheral vertigo, unspecified laterality (Primary Dx) Social History Tobacco Use Types Packs/Day Years Used Date Smoking Tobacco: Never Comments No Sex and Gender Information Value Date Recorded Sex Assigned at Not on file 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 Gender Identity Not on file Sexual Orientation Not on file documented as of this encounter Last Filed Vital Signs Vital Sign Reading Time Taken Comments Blood Pressure 127/71 12/08/2020 3:26 PM CDT Pulse 80 12/08/2020 3:26 PM CDT Temperature 36.8 ??C (98.3 ??F) 12/08/2020 3:26 PM CD T Respiratory Rate - - Oxygen Saturation - - Inhaled Oxygen Concentration - - Weight 97.5 kg (215 lb) 12/08/2020 3:26 PM CDT Height - - Body Mass Index 32.31 10/16/2020 10:22 AM CDT documented in this encounter Progress Notes * Jorge Faith MD - 12/08/2020 2:40 PM CDT ENT History and Physical SUBJECTIVE: Patient is a 65 y.o. female with chief complaint of vertigo HPI: Brenna Chatterjee he comes to the clinic today with a 20 year history of having problems with vertigo. She notes that on occasion she develops a sudden onset of a spinning sensation when she opens her eyes, this is not related to rolling over in bed or changing position. There is no change in her hearing, nor is there any sense of pressure in her ears. This is been an ongoing problem over the last 20years and is sporadic. She does note her mother had a similar type vertigo. She does have a history of atrial fibrillation and ventral tachycardia. Currently she is being followed by Cardiology for that problem. She does not feel that her spinning sensation is related to hercardiac situation. Past Medical History: Diagnosis Date ??? A-fib (CMS/HCC) (HCC) ??? Diverticulitis ??? Hyperlipidemia ??? Osteoporosis ??? VT (ventricular tachycardia) (CMS/HCC) (HCC) Past Surgical History: Procedure Laterality Date ??? [...] mg tablet vibegron 75 mg tablet vitamins A,C,Z-galo-zdfvkx 7,160-113-100 ktmf-qp-ydbx tablet,delayed release (DR/EC) Allergies Allergen Reactions ??? Flecainide Other (See comments) and Palpitations ??? Morphine Social History Tobacco Use ??? Smoking status: Never Smoker Substance Use Topics ??? Alcohol use: Not on file Family History Problem Relation Age of Onset ??? No Known Problems Mother ??? No Known Problems Father ??? Heart disease Other ??? Blood Clot Other Review of Systems: Review of Systems Constitutional: Negative for appetite change, chills, fatigue, fever and unexpected weight change. HENT: Negative for congestion, dental problem, ear discharge, ear pain, facial swelling, hearing loss, postnasal drip, rhinorrhea, sinus pressure, sneezing, sore throat, tinnitus, trouble swallowing and voice change. Eyes: Negative for discharge, redness, itching and visual disturbance. Respiratory: Negative for cough, shortness of breath and wheezing. Cardiovascular: Negative for chest pain and palpitations. Gastrointestinal: Negative for abdominal distention, abdominal pain, constipation, diarrhea, nauseaand vomiting. Endocrine: Negative for cold intolerance, heat intolerance, polydipsia, polyphagia and polyuria. Musculoskeletal: Negative for arthralgias, gait problem and myalgias. Skin: Negative for rash. Allergic/Immunologic: Negative for environmental allergies and food allergies. Neurological: Positive for dizziness. Negative for light-headedness and headaches. Psychiatric/Behavioral: Negative for agitation, confusion, decreased concentration and sleep disturbance. The patient is not nervous/anxious. Vitals: Vitals: 12/08/20 1526 BP: 127/71 Pulse: 80 Temp: 36.8 ??C (98.3 ??F) Weight: 97.5 kg (215 lb) OBJECTIVE: Physical Exam: Physical Exam Constitutional: Appearance: She is well-developed. HENT: Head: Normocephalic and atraumatic. Comments: Clinical examination shows normal-appearing ears. There is no evidence of middle ear effusion. No sign of infection is noted. Nasal examination shows a septal deviation. There is no obvious obstruction. No masses are noted there was no sign of an infection or purulent drainage. The oral cavity shows no masses or lesions. No purulent drainage is noted in the nasopharynx. Thereis no sign of inflammation. The tongue extends and retracts in midline. Indirect mirror laryngoscopy could not be done because of gagging. Examination of the neck does not show any masses or lesions, no tenderness is noted. Right Ear: Hearing, tympanic membrane, ear canal and external ear normal. Left Ear: Hearing, tympanic membrane, ear canal and external ear normal. Nose: Nose normal. Mouth/Throat: Pharynx: Uvula midline. Eyes: General: Lids are normal. Conjunctiva/sclera: Conjunctivae normal. Neck: Trachea: Trachea and phonation normal. Pulmonary: Effort: Pulmonary effort is normal. Musculoskeletal: Cervical back: Normal range of motion and neck supple. Skin: General: Skin is warm and dry. Neurological: Mental Status: She is alert and oriented to person, place, and time. GCS: GCS eye subscore is 4. GCS verbal subscore is 5. GCS motor subscore is 6. Psychiatric: Speech: Speech normal. ASSESSMENT/PLAN: 1. Vertigo Clinically it is difficult to say what is the etiology of her vertigo. It could be benign positional vertigo or she could be having problems with a mild case of hydrops. For management she was instructed in the Angella maneuvers for both ears and will undergo an audiogram to further evaluate her hearing situation. Jorge Faith MD documented in this encounter Plan of Treatment Not on file documented as of this encounter Visit Diagnoses Diagnosis Peripheral vertigo, unspecified laterality- Primary documented in this encounter Discontinued Medications Medication Sig Discontinue Reason Start Date End Da te HYDROcodone-acetaminophe n (NORCO) 5-325 mg per tabletIndications:Pain Take 1 tablet by mouth every 4 (four) hours as needed for pain Do not exceed 8 tablets/day. Therapy completed 05/25/2020 12/08/2020 mirabegron ER (MYRBETRIQ) 50 mg tablet extended release 24 hr 50 mg daily Therapy completed oxybutynin XL (DITROPAN-XL) 10 mg 24 hr tablet Take 10 mg by mouth daily Therapy completed 12/08/2020 documented as of this encounter Historical Medications * This list may reflect changes made after this encounter. vibegron 75 mg tablet Take 75 mg by mouth daily hyoscyamine (LEVSIN) 0.125 mg/mL solution Take by mouth every 4 (four) hours as needed for bladder spasms added in this encounter Care Teams Skylights Assembler Relationship Specialty Start Date End Date Bianca Aggarwal NP [address] [place] [address] PCP - General Nurse Practitioner 10/03/20 Bianca Aggarwal NP [address] [place] [address] 10/03/20 documented as of this encounter
--- OUTSIDE RECORDS SUMMARY | 2024-04-04 19:49 | XMS_ITS | Encounter Summary ---
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 - 02/23/2011 2:04 PM CHIEF CONSOLE OPERATOR Hospital Encounter [facility] Lucho Baugh MD [address] [place] [address] Atrial fibrillation (CMS/HCC) (HCC); Paroxysmal ventricular tachycardia (HCC); Essential hypertension; detention current use of anticoagulant therapy Social History Tobacco Use Types Packs/Day Years Used Date Smoking Tobacco: Never Assessed Comments Unknown Sex and Gender Information Value Date Recorded Sex Assigned at Not on file 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
--- OUTSIDE RECORDS SUMMARY | 2024-04-04 19:49 | XMS_ITS | Encounter Summary ---
Author Organization [facility] Healthcare Address [address] [place] [address] Care Team Providers Care Farm Instructor Name Role Phone Unavailable Primary Care Provider Unavailabl e Encounter Details Date Type Department Care Team (Late st Contact Info) Description 01/12/2011 6:50 AM CDT - 01/12/2011 4:28 PM T Hospital Encounter [facility] Lucho Baugh MD [address] [place] [address] Other specified cardiac dysrhythmias; Atrial fibrillation (CMS/HCC) (HCC); Syncope and collapse; Essential hypertension; Pure hypercholesterolemia; Other depressive disorder; Arthropathy; History of peptic ulcer disease; Cardiomegaly; Mitral valve insufficiency and aortic valve insufficiency Social History Tobacco Use Types Packs/Day Years Used Date Smoking Tobacco: Never Assessed Comments Unknown Sex and Gender Information Value Date Recorded Sex Assigned at Not on file 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 Gender Identity Not on file Sexual Orientation Not on file documented as of this encounter Plan of Treatment Not on file documented as of this encounter Visit Diagnoses Diagnosis Other specified cardiac dysrhythmias Atrial fibrillation (CMS/HCC) (HCC) Atrial fibrillation Syncope and collapse Essential hypertension Unspecified essential hypertension Pure hypercholesterolemia Other depressive disorder Arthropathy Unspecified arthropathy, site unspecified History of peptic ulcer disease Personal history of peptic ulcer disease Cardiomegaly Mitral valve insufficiency and aortic valve insufficiency documented in this encounter
--- OUTSIDE RECORDS SUMMARY | 2024-04-04 19:50 | XMS_ITS | Continuity of Care Document ---
Author Organization [facility] Address [address] [place] [address] Phone Care Team Providers Care Workforce Services Representative Name Role Phone Doser Isaak CHAIDEZ Unavailable Unavailable Allergies, Adverse Reactions, Alerts Substance Reaction Status Criticality No Known Allergies Active No Inform ation Medications Medication Instructions Dosage Effective Dates (start - stop) Status Comments Percocet 5 mg-325 mg tablet take 1 tablet by oral route every 6 hours as needed for pain - Active Procedures Procedure Date X-ray exam ankle, minimum 3 views Global/Postop followup visit ASO Lace Up Ankle Stabilizer X-ray exam ankle, minimum 3 views Global/Postop followup visit X-ray exam ankle, minimum 3 views Global/Postop followup visit OR[facility] Distal Fib Fx Office/outpatient visit,new, mod 2020 Application short leg cast Cast Supplies, Short Leg, Adult, Fibergl ass Advance Directives Directive Yes / No Effective Date File Name No Information Encounters Encounter Description Practice Location Reason(s) For Visit Diagnoses Date Provider Providers Copied on Encounter [facility], [address] [place], [place] [address], [id number], [place] tel:[phone] [facility] No Information Doser Isaak. [address] [facility], [facility] [address], [place], [place], [id number] , [place]. tel:[phone] [facility], [facility] [address], [place], [place], [id number], [place] tel:[phone] [facility] Pain in left footPain in left ankle and joints of left footOth fracture of left lower leg, init for clos fx 2 Doser Isaak. [address] [place] [address], [place] [address], [place], [place], [id number] , [place]. tel:[phone] Referring Provider: Isaak Patel, [address] [place] [address] Suite [facility], [place], [address] . tel:[phone] [facility], [address] [place] [address], [place], [place], [id number], [place] tel:[phone] [facility] left ankle (chief complaint) Pain in left ankle and joints of left footOth fracture of left lower leg, init for clos fx 1 Doser Isaak. [address] [place] [address], [place] [address], [place], [place], [id number] , [place]. tel:[phone] Referring Provider: Isaak Patel, [address] [place] [address], [place], [address] . tel:[phone] [facility], [address] [place] [address], [place], [place], [id number], [place] tel:[phone] [facility] Follow Up of left ankle (chief complaint) Pain in left footFx of left ankle, initial encounter for closed fxPain in left ankle 1 Doser Isaak. [address] [place] [address], [place] [address], [place], [place], [id number] , [place]. tel:[phone] Referring Provider: Isaak Patel, [address] [place] [address], [place], [address] . tel:[phone] [facility], [address] [place] [address], [place], [place], [id number], [place] tel:[phone] [facility] No Information 1 Doser Isaak. [address] [facility], [place], [place], [id number] , [place]. tel:[phone] Referring Provider: Isaak Patel, [address] [facility] [address], [place], [address] . tel:[phone] Office/outpat ient visit,[facility], [address] [facility], [place], [place], [id number], tel:[phone] [facility] Left spiral fracture (chief complaint) Pain in left ankleFx of left ankle, initial encounter for closed fx 1 Doser Isaak. [address] [facility], [place], [place], [id number] , [place]. tel:[phone] Referring Provider: Isaak Patel, [address] [facility] [address], [place], [address] . tel:[phone] Family History Family Member Type Diagnosis Age At Onset Brother Problem (finding) Heart Disease Father Problem (finding) Heart Disease Brother Problem (finding) Gout Father Problem (finding) Diabetes Mother Problem (finding) Blood disorder Father Problem (finding) Gout Payers Payer name Insurance type Covered constitution party ID Authoriza tion(s) [place] [id number] [facility] [place] [id number] Social History Type Description Quantity Date Captured Comments Alcohol Use Details Unknown Caffeine Use Details Unknown Tobacco Use Status No Information Smoking Status No Information Sex Female Chief Complaint And Reason For Visit No Information Reason For Referral Reason For Referral No Information History Of Present Illness Encounter Date Complaint History Of Prese nt Illness left ankle Follow Up of left ankle Left spiral fracture Functional Status Date Functional Assessmen t No Information Instructions Date Instruction Additional Infor mation No Information Assessments Type Assessment Date No Information Patient Care Teams Name Effective Dates (start - stop) Status Members No Information
--- OUTSIDE RECORDS SUMMARY | 2024-04-04 19:50 | XMS_ITS | Continuity of Care Document ---
Author Organization [facility] Address [address] [place] [address] Phone Care Team Providers Care Patient Portal Concierge Name Role Phone Bernadine PT, VILLAT, Miranda Unavailable Unavailable Procedures Procedure Date Progress Note Therapeutic Activities Neuromuscular Re-Ed Therapeutic Exercise Hot or Cold Pack Therapeutic Exercise Therapeutic Activities Neuromuscular Re-Ed Hot or Cold Pack Therapeutic Activities Hot or Cold Pack Therapeutic Exercise Neuromuscular Re-Ed Therapeutic Exercise Hot or Cold Pack Neuromuscular Re-Ed Neuromuscular Re-Ed PT Evaluation Low Complexity Advance Directives Directive Yes / No Effective Date File Name No Information Encounters Encounter Description Practice Location Reason(s) For Visit Diagnoses Date Provider Providers Copied on Encounter [facility], [id number], tel:[phone] [place] No Information 2 Bernadine Jean. . [facility], [id number], tel:[phone] [place] No Information 2 Bernadine Jean. . Referring Provider: Isaak Patel, [address] [address], [place], [address]. tel:[phone] [facility], [address] [address], [place], [place], [id number], tel:[phone] [place] No Information 2 Lehnen Miranda. . Referring Provider: Isaak Patel, [address] [address], [place], [address]. tel:[phone] [facility] [address] [address], [place], [place], [id number], tel:[phone] [place] No Information 2 Lehnen Miranda. . Referring Provider: Isaak Patel, [address] [facility] [address], [place], [address]. tel:[phone] [facility], [address] [place] [address], [place], [place], [id number], tel:[phone] [place] No Information 1 Lehnen Miranda. . Referring Provider: Isaak Patel, [address] [address], [place], [address]. tel:[phone] [facility] [address] [place] [address], [place], [place], [id number], tel:[phone] [place] No Information 1 Lehnen Miranda. . Referring Provider: Isaak Patel, [address] [address], [place], [address]. tel:[phone] Family History Family Member Type Diagnosis Age At Onset No Information Payers Payer name Insurance type Covered republican ID Authoriza tidea(s) Medicare [place] [id number] [facility] [id number] Social History Type Description Quantity Date Captured Comments Sex Female Smoking Status No Information Chief Complaint And Reason For Visit No Information Reason For Referral Reason For Referral No Information Plan Of Treatment Date Type Action Status Referral Ordered: PCP timeframe: 1 week. (related to Overweight) ordered Referral Ordered: Weight management: Referral to physician timeframe: 1 Month. (related to Overweight) ordered History Of Present Illness Encounter Date Complaint History Of Prese nt Illness No Information Functional Status Date Functional Assessmen t No Information Instructions Date Instruction Additional Infor mation No Information Assessments Type Assessment Date No Information Patient Care Teams Name Effective Dates (start - stop) Status Members No Information
--- OUTSIDE RECORDS SUMMARY | 2024-04-04 19:53 | XMS_ITS | CONTINUITY OF CARE DOCUMENT ---
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 Name Role Phone Kenan Thakkar MD Unavailable [phone] [employer] ULTRASONIC SEAMING MACHINE OPERATOR-C, Bianca Unavailable [phone] Kilzer ULTRASONIC SEAMING MACHINE OPERATOR-C, Bianca Unavailable PROBLEMS Condition Status Date Provider [...] In-person encounter Office Visit Kenan Thakkar MD [facility] 5 - 6 In-person encounter Office Visit Kenan Thakkar MD [facility] 3 - 4 In-person encounter Office Visit Kenan Thakkar MD [facility] 9 - 9 In-person encounter Office Visit Kenan Thakkar MD [facility] 7 - 7 In-person encounter Office Visit Kenan Thakkar MD [facility] 1 - 1 In-person encounter Office Visit Lucho Bolton MD [facility] Tachycardia bradycardia syndrome 8 - 1 In-person encounter Office Visit Lucho Bolton MD [facility] 4 - 8 In-person encounter Office Visit Lucho Bolton MD [facility] [place] [facility] 2 - 2 In-person encounter Office Visit Kenan Thakkar MD [facility] Syncope 8 - 0 In-person encounter Office Visit Kenan Thakkar MD [facility] PVD 0 - 0 In-person encounter Office Visit Kenan Thakkar MD [facility] 0 - 0 In-person encounter Office Visit Kenan Thakkar MD [facility] Venous insufficiency 2 - 7 In-person encounter Office Visit Kenan Thakkar MD [facility] Leg edema 1 - 1 In-person encounter Office Visit Kenan Thakkar MD [facility] 5 - 2 In-person encounter Office Visit Kenan Thakkar MD [facility] [place] [facility] Exposure to COVID-19Leg pain, left 6 - 1 In-person encounter Office Visit Kenan Thakkar MD [facility] Exposure to COVID-19 5 - 5 In-person encounter Office Visit Kenan Thakkar MD [facility] CHEST PAINCardiac murmur 4 - 5 In-person encounter Office Visit Kenan Thakkar MD [facility] Left atrial enlargement 5 - 0 In-person encounter Office Visit Kenan Thakkar MD [facility] [place] [facility] Medtronic REVEAL 4 - 4 In-person encounter Office Visit Kenan Thakkar MD [facility] 6 - 4 In-person encounter Office Visit Kenan Thakkar MD [facility] 8 - 9 In-person encounter Office Visit Kenan Thakkar MD [facility] HTN essentialDIZZINESSObstructive sleep apneaAtrial tachycardia - 12/2010 EPSVENTRICULAR TACHYCARDIA - 2010 HOLTERCandidate for surgeryCurrent use of anticoagulants 1 - 6 In-person encounter Office Visit Kenan Thakkar MD [facility] [place] [facility] 4 - 9 In-person encounter Office Visit Kenan Thakkar MD [facility] Alkaline phosphatase, elevatedMedtronic REVEALObesity 1 - 6 In-person encounter Office Visit Kenan Thakkar MD [facility] Hypercholesterolemia 1 - 3 In-person encounter Office Visit Kenan Thakkar MD [facility] Atrial tachycardia - 12/2010 EPS 9 - 6 In-person encounter Office Visit Kenan Thakkar MD [facility] Hypokalemia 1 - 3 In-person encounter Office Visit Kenan Thakkar MD [facility] 3 - 5 In-person encounter Office Visit Kenan Thakkar MD [facility] 9 - 4 In-person encounter Office Visit Kenan Thakkar MD [facility] 9 - 9 In-person encounter Office Visit Kenan Thakkar MD [facility] 3 - 4 In-person encounter Office Visit Kenan Thakkar MD [facility] Office 3 - 4 In-person encounter Office Visit Kenan Thakkar MD [facility] 1 - 3 In-person encounter Office Visit Kenan Thakkar MD [facility] 0 - 1 In-person encounter Office Visit Kenan Thakkar MD [facility] 0 - 5 In-person encounter Office Visit Lucho Bolton MD [facility] 0 - 0 In-person encounter Office Visit Lucho Bolton MD [facility] CHEST PAIN 8 - 8 In-person encounter Office Visit Lucho Bolton MD [facility] VENTRICULAR TACHYCARDIA - 2010 HOLTER 4 - 4 In-person encounter Office Visit Lucho Bolton MD [facility] 7 - 7 In-person encounter Office Visit Lucho Bolton MD [facility] Atrial tachycardia - 12/2010 EPS 6 - 6 In-person encounter Office Visit Kenan Thakkar MD [facility] Office 8 - 9 In-person encounter Office Visit Kenan Thakkar MD [facility] [place] [facility] 6 - 3 In-person encounter Office Visit Kenan Thakkar MD [facility] 4 - 4 In-person encounter Office Visit Kenan Thakkar MD [facility] 1 - 9 In-person encounter Office Visit Kenan Thakkar MD [facility] 1 - 1 In-person encounter Office Visit Kenan Thakkar MD [facility] Obstructive sleep apnea 6 - 7 In-person encounter Office Visit Kenan Thakkar MD [facility] 4 - 5 In-person encounter Office Visit Kenan Thakkar MD [facility] [place] [facility] DIZZINESS 4 - 3 In-person encounter Office Visit Kenan Thakkar MD [facility] HTN essential 5 - 9 In-person encounter Office Visit Kenan Thakkar MD [facility] [place] [facility] ATRIAL FIBRILLATION-S/P EP/ABLATION 02/22/11HTN essentialFAMILY HX CARDIOVASCULAR DISEASE-05/27 NUC NEG VITAL SIGNS Date Observation Value Provider Body Mass Index (Ratio) 34.97 kg/m2 Tal Helms blood pressure, cuff size regular Syed [facility] blood pressure, diastolic 78 mm[Hg] [facility] blood pressure, systolic 128 mm[Hg] [facility] pulse rate 66 /min respiratory rate E&M 12 /min Rodrick oxygen saturation, oximetry 98 % weight E&M 230 [lb_av] height E&M 68 [in_i] Rodrick y Body Mass Index (Ratio) 35.58 kg/m2 Tal elizondo Scooter blood pressure, cuff size regular Ja rret blood pressure, diastolic 89 mm[Hg] rret blood pressure, systolic 142 mm[Hg] [facility] ret pulse rate 78 /min Rodrick respiratory rate E&M 12 /min Rodrick oxygen saturation, oximetry 98 % Rodrick weight E&M 234 [lb_av] Rodrick y height E&M 68 [in_i] Rodrick y Body Mass Index (Ratio) 34.51 kg/m2 [facility] weight E&M 227 [lb_av] Rodrick y blood pressure, cuff size regular rret blood pressure, diastolic 87 mm[Hg] rret blood pressure, systolic 121 mm[Hg] [facility] pulse rate 70 /min Rodrick oxygen saturation, oximetry 98 % Rodrick respiratory rate E&M 12 /min Rodrick height E&M 68 [in_i] Rodrick y Body Mass Index (Ratio) 34.66 kg/m2 [facility] blood pressure, cuff size regular rr blood pressure, diastolic 95 mm[Hg] rret blood pressure, systolic 142 mm[Hg] [facility] ret pulse rate 72 /min [...] [lb_av] Rodrick oxygen saturation, oximetry 98 % Rodrick [...] Mass Index (Ratio) 34.51 kg/m2 Indra read Hercules blood pressure, diastolic 72 mm[Hg] Aleshia nkLogic [...] MD oxygen saturation, oximetry 97 % [employer] respiratory rate E&M 18 /min [facility] pulse rate 70 /min [facility] weight E&M 218.6 [lb_av] [facility] height E&M 68 [in_i] [facility] Body Mass Index (Ratio) 33.45 kg/m2 Charlotte [...] respiratory rate E&M 14 /min Catheri ne Maddock pulse rate 77 /min Monse Vikash weight E&M 221 [lb_av] Monse Maddock blood pressure, cuff size regular Ca therine Vikash height E&M 68 [in_i] Monse Maddock Body Mass Index (Ratio) 32.23 kg/m2 Charlotte Higginspascual blood pressure, diastolic 60 mm[Hg] Li nkLogic blood pressure, systolic 120 mm[Hg] Gillian kLogic blood pressure, cuff size large Ke rri Gruenenfelder blood pressure, diastolic 60 mm[Hg] Ke rri Gruenenfelder blood pressure, systolic 120 mm[Hg] Kenji ri Rosa [facility] oxygen saturation, oximetry 98 % Madhuri Rosa Melder respiratory rate E&M 16 /min [facility] 69 /min Madhuri Wheelerpenelope lder weight E&M 212 [lb_av] Madhuri Ledezmae lder height E&M 68 [in_i] Madhuri Brisae lder Body Mass Index (Ratio) 32.69 kg/m2 Jairo atkins Hilary blood pressure, diastolic 76 mm[Hg] Jus rodarte Hilary blood pressure, systolic 131 mm[Hg] Kaitlin kelly Hilary weight E&M 215 [lb_av] Jeremías Lundb erg height E&M 68 [in_i] Jeremías Saint Clairb erg Body Mass Index (Ratio) 34.06 kg/m2 Jairo atkins Hilary blood pressure, diastolic 86 mm[Hg] Cy nthia Donis blood pressure, systolic 148 mm[Hg] Sanna thiosvaldo Donis blood pressure, cuff size regular Cy nthia Gagandeep pulse rate 73 /min Marcy Tabby mancuso respiratory rate E&M 16 /min Marcy Donis oxygen saturation, oximetry 98 % Marcy Donis weight E&M 224 [lb_av] Marcy mancuso height E&M 68 [in_i] Marcy mancuso Body Mass Index (Ratio) 33.45 kg/m2 Jairo [facility] blood pressure, diastolic, left arm 95 mm [Hg] [facility] blood pressure, systolic, left arm 164 mm [Hg] [facility] blood pressure, diastolic, right arm 103 mm[Hg] [facility] blood pressure, systolic, right arm 163 m m[Hg] [facility] respiratory rate E&M 16 /min [facility] blood pressure, diastolic 95 mm[Hg] To [facility] blood pressure, systolic 164 mm[Hg] Ton [facility] pulse rate 76 /min [facility] oxygen saturation, oximetry 98 % [facility] weight E&M 220 [lb_av] [facility] height E&M 68 [in_i] [facility] Body Mass Index (Ratio) 33.30 kg/m2 Jairo [facility] blood pressure, diastolic, left arm 82 mm [...] Thakkar MD oxygen saturation, oximetry 98 % [facility] Krystyna respiratory rate E&M 16 /min Chastit y Krystyna blood pressure, diastolic 68 mm[Hg] Ch astity Krystyna blood pressure, systolic 118 mm[Hg] Марина stity Krystyna pulse rate 66 /min Chastity Krystyna weight E&M 228 [lb_av] Chastity Krystyna height E&M 68 [in_i] Chastity Krystyna Body Mass Index (Ratio) 34.21 kg/m2 Jairo Richard blood pressure, diastolic 80 mm[Hg] Da foster [place] blood pressure, systolic 142 mm[Hg] Dac ia Sedrick oxygen saturation, oximetry 96 % Kristie [place] respiratory rate E&M 18 /min Kristie V oss pulse rate 69 /min Kristie Sedrick weight E&M 225 [lb_av] Kenan Thakkar MD height E&M 68 [in_i] [facility] Body Mass Index (Ratio) 34.21 kg/m2 Jairo Richard pulse rate 82 /min [facility], [facility]xim[facility] 98 % Ata [place] blood pressure, diastolic 98 mm[Hg] Carlos [place] blood pressure, systolic 150 mm[Hg] Avelina [place] weight E&M 225 [lb_av] [facility] respiratory rate E&M 16 /min Ata [place] height E&M 68 [in_i] [facility] Body Mass Index (Ratio) 33.90 kg/m2 Jairo Richard blood pressure, cuff size regular Henry rri Brisafranciscauri blood pressure, diastolic 90 mm[Hg] Henry rruri Ledezmafranciscauri blood pressure, systolic 167 mm[Hg] Kenji Ag oxygen saturation, oximetry 95 % Madhuri Ag respiratory rate E&M 18 /min Madhuri Toney dimastristonpeyton pulse rate 72 /min Madhuri [facility] weight E&M 223 [lb_av] Madhuri [facility] height E&M 68 [in_i] Madhuri [facility] Body Mass Index (Ratio) 33.60 kg/m2 Luther [...] Cherie Prabhakar blood pressure, diastolic 90 mm[Hg] Or oskar Prabhakar blood pressure, systolic 175 mm[Hg] [...] pressure, diastolic, left arm 103 m m[Hg] Shyatris Lennox blood pressure, systolic, left arm 174 [...] blood pressure, diastolic 74 mm[Hg] Gennaro stallings [facility] blood pressure, systolic 134 mm[Hg] Shy mitchell [facility] pulse rate 76 /min Shyatris [facility] oxygen saturation, oximetry 96 % Rodolfo [...] pressure, systolic, left arm 148 mm [Hg] [facility] [place] blood pressure, diastolic, right arm 84 m m[Hg] [facility] [place] blood pressure, systolic, right arm 147 m m[Hg] [facility] [place] blood pressure, diastolic 80 mm[Hg] Melendez blood pressure, systolic 148 mm[Hg] Korey [place] pulse rate 75 /min gennaro [place] oxygen saturation, oximetry 98 % gennaro [place] respiratory rate E&M 16 /min [facility] [place] weight E&M 226 [lb_av] Srinath [...] Adilene Dickey oxygen saturation, oximetry 99 % Adielne Dickey respiratory rate E&M 18 /min Adilene [...] pressure, diastolic, left arm 92 mm [Hg] [facility] [place] blood pressure, systolic, left arm 140 mm [Hg] [facility] [place] blood pressure, diastolic, right arm 81 m m[Hg] [facility] [place] blood pressure, systolic, right arm 131 m m[Hg] [facility] [place] blood pressure, diastolic 82 mm[Hg] Burton [place] blood pressure, systolic 131 mm[Hg] Korey gennaro [place] pulse rate 72 /min [facility] [place] oxygen saturation, oximetry 96 % [facility] [place] respiratory rate E&M 16 /min [...] respiratory rate E&M 18 /min Marily Ball [place] weight E&M 275 [lb_av] Marilylisa Ball MA [...] pressure, diastolic, supine 82 mm[H g] Kenan Thakkar MD blood pressure, systolic, supine E&M 143 [...] Magda respiratory rate E&M 20 /min Kylah [place] blood pressure, diastolic 85 mm[Hg] Fe jossie [place] blood pressure, systolic 163 mm[Hg] Fel icia [place] ALLERGIES Allergy Name Onset Date Reaction Criticality [...] 04/21 Absolute Neutrophil count 4001 cells/mcL LinkLogic [id number] Normal 04/21 mean platelet volume 10.2 fL [...] 12/25 Absolute Neutrophil count 3449 cells/mcL [facility]Logic [id number] Normal 12/25 mean platelet volume 10.4 fL [...] 11/18 Absolute Neutrophil count 3391 cells/mcL [facility] [id number] Normal 11/18 mean platelet volume 10.5 fL [...] 3.5-5.2 11/27 sodium, serum 141 mmol/L LinkLogic [phone]/0 8/12 urea nitrogen/creatinin e ratio, serum 28 [...] 05/19 Absolute Neutrophil count 3030 cells/mcL [facility]Log[facility] [id number] Normal 05/19 mean platelet volume 9.7 fL [...] 3.5-5.2 06/28 sodium, serum 142 mmol/L [facility] [phone]/0 3/13 urea nitrogen/creatinin e ratio, serum 24 [...] [facility]Log[facility] 06/20 platelet count 275 X10E3/UL [facility] [phone]/0 3/05 red blood cell distribution width 14.3 [...] 3.77-5.28 06/20 leukocyte count, blood 4.9 X10E3/UL [facility] 3.4-10.8 05/14 very low density lipoproteins 22 mg/dL [facility] 05/14 triglyceride, serum, fasting 110 mg/dL [facility] 05/14 HDL cholesterol, serum 55 mg/dL [facility] 05/14 LDL cholesterol, serum 160 mg/dL [facility] 05/14 cholesterol, serum 237 mg/dL [facility] 06/07 activated partial thromboplastin time (aPTT) 33 s [facility] 24-33 06/07 prothrombin time (patient) 11.4 s [facility] 9.1-12.0 06/07 international normalized ratio (INR) 1.1 [facility] 0.8-1.2 06/07 calcium, serum 8.9 mg/dL [facility] 8.7-10.2 06/07 carbon dioxide, venous blood 25 [facility]/L [facility] 06/07 chloride, serum 102 mmol/L [facility] 97-108 06/07 potassium, serum 3.9 mmol/L LinkLog 3.5-5.2 06/07 sodium, serum 140 mmol/[phone]/1 2/20 urea nitrogen/creatinin e ratio, serum 24 [...] 40-74 06/07 platelet count 263 X10E3/UL [facility] [phone]/1 2/20 red blood cell distribution width 14.1 [...] 3.5-5.2 08/09 sodium, serum 140 mmol/L [facility] [phone]/0 4/24 urea nitrogen/creatinin e ratio, serum 27 [...] 3.5-5.2 05/11 sodium, serum 138 mmol/L [facility] [phone]/0 1/24 urea nitrogen/creatinin e ratio, serum 30 [...] Amilcar Hemphill 04/20 coagulation managed by Jericho Coolye RN 04/20 international normalized ratio (INR) 1.7 Srinath [place] 04/20 prothrombin time (patient) 16.8 s Srinath [place] carbon dioxide, venous blood 25 mmol/L [facility] 20-32 chloride, serum 102 mmol/L [facility] 97-108 potassium, serum 3.8 mmol/L [facility] 3.5-5.2 sodium, serum 140 mmol/L [facility] 176-470 4832/1 2/29 urea nitrogen/creatinin e ratio, serum 26 [...] Lagunas 04/24 calcium, serum 8.7 mg/dL earle [place] 04/24 blood glucose, fasting 95 mg/dL earle [...] red blood cell distribution width 14.0 % [facility] 04/24 mean corpuscular hemoglobin concentration, RBC 33.3 g/dL [facility] 04/24 mean corpuscular hemoglobin, RBC 30.1 pg [facility] 04/24 mean corpuscular volume, RBC 90.4 fL [facility] 04/24 hematocrit, blood 41.5 % [facility] 04/24 hemoglobin, blood 13.8 g/dL [facility] 04/24 erythrocyte (RBC) count 4.59 10*6/mm3 [facility] 04/24 leukocyte count, blood 4.5 10*3/mm3 [facility] 04/28 international normalized ratio (INR) 3.7 [facility] 04/28 prothrombin time (patient) 36.8 s [facility] 01/12 prothrombin time (patient) 27.4 s [facility] 01/12 international normalized ratio (INR) 2.59 [facility] 01/07 PTT patient 35.5 s [facility] 01/07 prothrombin time (patient) 19.9 s [facility] 01/07 international normalized ratio (INR) 1.69 [facility] 01/07 protein, total, serum 6.4 g/dL [facility] 01/07 albumin, serum 3.3 g/dL [facility] 01/07 bilirubin, serum, total 0.76 mg/dL [facility] 01/07 alkaline phosphatase, serum 85 1/L [facility] 01/07 alanine aminotransferase (SGPT), serum 13 1/L [facility] 01/07 aspartate aminotransferase (SGOT), serum 16 1/L [facility] 01/07 calcium, serum 8.4 mg/dL [facility] 01/07 blood glucose, fasting 86 mg/dL [facility] 01/07 creatinine, serum 0.71 mg/dL [facility] 01/07 urea nitrogen, blood 15 mg/dL [facility] 01/07 carbon dioxide, serum, total 31 mmol/L [facility] 01/07 chloride, serum 100 mmol/L 01/07 potassium, serum 4.0 mmol/L [facility] 01/07 sodium, serum 136 mmol/L 01/07 erythrocyte sedimentation rate 8 mm/h [facility] anion gap, serum 9.0 [facility] globulins, serum, total 3.1 g/dL [facility] 01/07 Estimated Glomerular Filtration Rate (calc) 86 mL/min/{1.73 _m2} [facility] 01/07 platelet count 185 10*3/uL [facility] 01/07 red blood cell distribution width 13.2 % [facility] 01/07 mean corpuscular hemoglobin concentration, RBC 33.4 g/dL [facility] 01/07 mean corpuscular hemoglobin, RBC 30.1 pg [facility] 01/07 mean corpuscular volume, RBC 90.0 fL [facility] 01/07 hematocrit, blood 42.5 % [facility] 01/07 hemoglobin, blood 14.2 g/dL [facility] 01/07 erythrocyte (RBC) count 4.72 10*6/mm3 [facility] 01/07 monocyte count, blood 0.32 10*3/mm3 [facility] 01/07 lymphocyte count, blood 1.24 10*3/mm3 [facility] 01/07 monocytes as percent of blood leukocytes 8.7 % [facility] 01/07 lymphocytes as percent of blood leukocytes 33.7 % [facility] 01/07 leukocyte count, blood 3.68 10*3/mm3 [facility] 01/11 coagulation managed by Jericho Cooley [...] LinkLogic Normal 04/29 free thyroxine index 3.7 [facility] 1.4-3.8 Normal 04/29 thyroxine, serum, total 11.5 ug/[facility] 4.5-12.5 Normal 04/29 triiodothyronine resin uptake 32 % LinkLog[facility] 22-35 Normal 04/29 cholesterol/HDL ratio, serum, percent 3.6 (calc) [facility] = 5.0 Normal 04/29 LDL cholesterol, serum 106 MG/DL (CALC) LinkLog[facility] <130 Normal 04/29 triglyceride, serum, fasting 156 mg/dL [facility]Log[facility] <150 High 04/29 HDL cholesterol, serum 52 mg/dL [facility]Log[facility] > OR = 46 Normal 04/29 cholesterol, serum 189 mg/dL [facility] 125-200 Normal 08/27 albumin/globulin ratio, serum 1.3 [facility] 08/27 protein, total, serum 6.6 g/dL [facility] 08/27 albumin, serum 3.7 g/dL [facility] 08/27 bilirubin, serum, total 0.4 mg/dL [facility] 08/27 alkaline phosphatase, serum 142 1/L [facility] 08/27 alanine aminotransferase (SGPT), serum 9 1/L [facility] 08/27 aspartate aminotransferase (SGOT), serum 8 1/L [facility] 08/27 calcium, serum, ionized 9.0 mg/dL [facility] 08/27 blood glucose, fasting 97 mg/dL [facility] 08/27 creatinine, serum 0.68 mg/dL Erica 08/27 [...] tablet by mouth once daily 05/29 [facility]-325 mg tablet completed Take 1 [...] by mouth once daily 12/03 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 methylprednisolone 4 mg tablets,dose pack completed follow [...] by mouth once daily 09/30 - 01/10 [facility] atorvastatin 80 mg tablet active Take 1 tablet by mouth once a day TAKE ONE TABLET BY MOUTH DAILY 07/29 Ryanne Yoon fludrocortisone 0.1 mg tablet active Take 1 tablet by mouth three times a day TAKE 1 TABLET BY MOUTH THREE TIMES DAILY 07/08 Ryanne Yoon lisinopril 40 mg tablet completed TAKE ONE TABLET BY MOUTH DAILY 06/02 - 05/29 [facility] potassium chloride 20 mEq tablet,ER particles/crystals completed TAKE ONE TABLET BY MOUTH EVERY DAY 05/25 - 09/30 Renee Shepherd sotalol 80 mg tablet completed TAKE 1/2 TABLET BY MOUTH TWICE A DAY WITH FOOD DIRECTED 10/13 - 10/14 Renee Shepherd Aldactone 25 mg tablet completed TAKE 1 TABLET BY MOUTH DAILY 08/05 - [facility] amlodipine 10 mg tablet active Monse Vikash alendronate 70 mg tablet completed - 11/25 Yadira Márquez Gemtesa 75 mg tablet active Monse Maddock fludrocortisone 0.1 mg tablet completed TAKE 1 [...] TIMES A DAY NEEDED 12/04 - 11/25 [facility] alendron[facility] 35 mg tablet active Take 1 tablet once a week 12/11 Marcy Donis meclizine 25 mg tablet completed Take 1 tablet by mouth three times a day as needed 06/08 - 12/04 Arelynavid Jaylan Percocet 5-325 mg tablet completed Take 1 tablet every four hours as needed 05/28 - 11/25 [facility]iraosvaldo [facility] Xanax 0.25 mg tablet completed 1 tablet as needed 05/01 - 11/26 Kenan Thakkar MD [facility] AREDS [phone] egcp-by-xogl tablet,delayed release (/EC) active Take 2 once a day 04/25 Madhuri Ag lisinopril 40 mg tablet completed Take 1 tablet by mouth once a day 09/22 - 12/23 Ariel Ellis atorvastatin 80 mg tablet completed Take 1 tablet by mouth once a day 05/13 - 05/03 Rhianna Centeno RN Vesicare 5 mg tablet completed once a day - 11/25 [facility] potassium chloride 20 mEq tablet,ER particles/crystals [...] active 1 tablet once a day Jericho Cooely RN GLUCOSAMINE-CHONDRO ITIN-MSM TABLET completed daily - [...] Scooter smoking status Never smoker Sebastian Newman hi drug use no Sebastian Scooter alcohol use, average drinks per day <1 Sebastian Scooter alcohol use yes Sebastian Scooter passive cigarette sm [place] exposure no Sebastian Scooter smoking status Never smoker Raton Newman hi physical exercise, f requency, days per week no Kenan Thakkar MD caffeine use, averag e drinks per day 1+ Kenan Thakkar MD passive cigarette sm [place] exposure no Kenan Thakkar MD smoking status Never smoker Kenan Yoder social history reviewed E&M xena taylor - no changes required Kenan Thakkar MD smoking status Never smoker Jessica Moses meme HUIZAR smoking status Never smoker Johanna Kown social history E&M Marital Statu s: L [...] f requency, days per week no Monse Maddock caffeine use, averag e drinks per day 1+ Monse Maddock passive cigarette sm [place] exposure no Monse Maddock smoking status Never smoker [place] s [...] exercise, f requency, days per week no [facility] caffeine use, averag e drinks per day 1+ Tonsha Avila passive cigarette sm [place] [facility] social history reviewed E&M revi ewed - no changes required Kenan Thakkar MD physical exercise, f requency, days per week no Maggi O'Andre alcohol use, average drinks per day <1 Maggi O'Andre alcohol use yes Maggi O'Andre caffeine use, averag e drinks per day [...] no Kristie Sedrick smoking status Never smoker [facility] physical exercise, f requency, days per [...] per day none LinkLog smoking status Non-smoker [facility] MENTAL STATUS Date Observation Value Provider assessment [...] MD FAMILY HISTORY Family Member Condition Father [place] male <55 Full Brother Family History of Hy pertension: Father Family History of Hy pertension: Father Family History of Di abetes: INSURANCE PROVIDERS Payer name Policy type / Coverage type Cristin red green party ID [facility] [id number] [place] Medicare [id number] ADVANCE DIRECTIVES Name Date DISCUSSED - NO DECISION MADE TREATMENT PLAN Date Name Performer [id number],Sebastian Trivedi [id number],S,T he patient is using CPAP on a regular basis. The patient has been benefiting from therapy and should continue use. Sebastian Helms [id number],W,P t had a presyncopal episode last week with no recording on her loop recorder. We thoroughly reviewed her transmissions and we did not see any episodes of bradycardia and we will cancel pacemaker implant at this time. Sebastian Helms [id number],S,S he did have a few episodes of Afib with RVR and we will increase sotalol back to BID. We will provide her with activator device for loop recorder so she can record episodes of sx on eliquis Her updated medication list for this problem includes: Sotalol 80 Mg Tablet (Sotalol) ..... Take 1 tablet by mouth twice a day Sebastian Helms [id number],S,C HOL: 159 (11/18/2022) LDL: 78 MG/DL (CALC) (11/18/2022) HDL: 64 (11/18/2022) T (11/18/2022) Her updated medication list for this problem includes: Atorvastatin 80 Mg Tablet (Atorvastatin) ..... Take 1 tablet by mouth once a day take one tablet by mouth daily Kenan Thakkar MD [id number],S, B P today: 135/86 P rior BP: [...] 10 Mg Tablet (Amlodipine) Kenan Thakkar MD [id number],C,l ast remote 11/29 check: AF x3, longest 3 hrs 53 min, HVR x3. AF RVR ~175-200 bpm. longest 8 sec. 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 all questions and concerns addressed. Jessica Napier NP [id number],C, B P today: 122/80 P rior BP: [...] 10 Mg Tablet (Amlodipine) Jessica Napier NP [id number],C,see #1 Madonna Napier NP [id number],C,no VT on last remote ILR check Jessica Napier NP [id number],C, Pt had ILR placed. open area to [...] ablation at present time. Jessica Napier NP [id number],N, Kenan Thakkar MD [id number],C,. Documentation of mild PAD per duplex. Bre Robert [id number],C,O michelle doing well. Complaining of some griselda horses. Documentation of mild PAD per duplex. Bre Robert [id number],C,O michelle doing well. Complaining of some griselda horses. Documentation of mild PAD per duplex. She would liek to participate in the OCEANIC-AF trial. Will obtain f/u echo Her updated medication list for this problem includes: Sotalol 80 Mg Tablet (Sotalol) ..... Take 1/2 tablet by mouth twice a day with food as directed Bre Robert [id number],C, . Weight loss advised. Keann Thakkar MD [id number],C, B P today: 138/83 P rior BP: [...] 10 Mg Tablet (Amlodipine) Kenan Thakkar MD [id number],S, Kenan Thakkar MD [id number],S, Kenan Thakkar MD [id number],S, Kenan Thakkar MD [id number],S, Kenan Thakkar MD [id number],B, Kenan Thakkar MD [id number],C, H er updated medication list for this problem includes: Atorvastatin 80 Mg Tablet (Atorvastatin) ..... Take one tablet by mouth daily Bre Robert [id number],S,. Weight loss advised. 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 She still has leg swelling and discomfort, we will consider venography with IVUS and Venaseal. Bre Robert [id number],S, W eight loss advised. Bre Robert [id number],C, H er updated medication list for this problem includes: Atorvastatin 80 Mg Tablet (Atorvastatin) ..... Take one tablet by mouth daily Bre Robert [id number],C,. BP was elevated and amlodipine was added [...] one tablet by mouth daily Bre Robert [id number],C,P t underwent orthopedic surgery and developed swelling in both legs, much worse on the left. BP was elevated and amlodipine was added. Will resume Lasix 20 mg dialy. WIll obtain venous duplex. Bre Robert [id number],C, W eight loss advised. Bre Robert [id number],C, B P today: 120/60 P rior BP: [...] (Furosemide) ..... Once a day Bre Robert [id number],C,O n statin. H er updated medication list for this problem includes: Atorvastatin 80 Mg Tablet (Atorvastatin) ..... Take 1 tablet by mouth once a day Bre Robert [id number],C,S he is a candidate for knee surgery, she is clear by cardiology standpoint. She may hold her Eliquis for any duration requested by the surgeon. Bre Robert [id number],C,N o palpitations at this time. Her updated medication list for this problem includes: Sotalol 80 Mg Tablet (Sotalol) ..... Take 0.5 tablet by mouth twice a day Bre Robert [id number],C,T he pt complains of vertigo, not position [...] Mg Tablet (Amlodipine) Sebastian Newmanri Cardiology:Device ch ayala revealed non capture of RV lead indicatative [...] as needed Amlodipine 10 Mg Tablet (Amlodipine) [facility] Cardiology [facility] Cardiology: H er updated medication list for this problem includes: Sotalol 80 Mg Tablet (Sotalol) ..... Take 1 tablet by mouth twice a day [facility]:Pt had a near syncopal episodes. ILR documented a pause greater than 3 seconds. She also has multiple episodes of Afib. In view of her synptomatic pause, we will implant a permanent pacemaker. [facility] Cardiology:The patie nt is using CPAP on a regular basis. The patient has been benefiting from therapy and should continue use. [facility]:Pt had a presyncopal episode last week with no recording on her loop recorder. We thoroughly reviewed her transmissions and we did not see any episodes of bradycardia and we will cancel pacemaker implant at this time. [facility]:She did h ave a few episodes [...] Once a day Bre [facility]gins[facility]asc[facility] Cardiology Follow up :On statin. H er updated medication list [...] 1/2 tablet by mouth twice daily [facility] TeleHealth:No palpit ations at this time. Her updated medication list for this problem includes: Sotalol 80mg Tablets (Sotalol hcl) ..... Take 1/2 tablet by mouth twice daily Eliquis 5 Mg Oral Tablet (Apixaban) .... One tablet twice daily [facility] TeleHealth:She was e xposed to COVID-19 earlier this week and thus we will do a rapid swab prior to her testing. Denies chest pain, SOB, cough, fever, any other symptoms concerning for COVID. [facility] TeleHealth:Tuesday night pt developed pain in the left leg, like a griselda horse, which woke her up from sleep. Also developed throbbing pain. She was advised to go to the ER but she refused. We will schedule her for a venous duplex to rule out DVT. She has been faithfully taking her Eliquis. [facility] Cardiology follow up :Her updated medication list for this problem includes: Atorvastatin 80mg Tablets (Atorvastatin calcium) ..... Take 1 tablet by mouth daily [facility] Cardiology follow up :BP today: 148/86 P rior BP: 164/95 (05/02/2019) Her updated medication list for this problem includes: Lisinopril 40mg Tablets (Lisinopril) ..... Take 1 tablet by mouth daily Lasix 20 Mg Oral Tablet (Furosemide) ..... Daily Sotalol 80mg Tablets (Sotalol hcl) ..... Take 1/2 tablet by mouth twice daily [facility] Cardiology follow up :No chest pain, SOB, or palpitations. Her updated medication list for this problem includes: Sotalol 80mg Tablets (Sotalol hcl) ..... Take 1/2 tablet by mouth twice daily Eliquis 5 Mg Oral Tablet (Apixaban) .... One tablet twice daily [facility] Cardiology follow up :Has occasional dizziness, which responds to Meclizine. [facility] Cardiology:Her [facility] ed medication list for this problem includes: Atorvastatin Calcium 80 Mg Oral Tablet (Atorvastatin calcium) ..... Take one tablet daily [facility] Cardiology:Echo did not show significant valvular disease (trace AI, mild MR and TR). [facility] Cardiology:Recently BP was normal at another doctor's office. Pt will monitor at home. BP today: 164/95 P rior BP: 126/82 (11/08/2018) Her updated medication list for this problem includes: Lisinopril 40 Mg Oral Tablet (Lisinopril) ..... One tablet daily Lasix 20 Mg Oral Tablet (Furosemide) ..... Daily Sotalol 80mg Tablets (Sotalol hcl) ..... Take 1/2 tablet by mouth twice daily [facility]:Overall f eeling well. Denies symptoms. Her updated medication list for this problem includes: Sotalol 80mg Tablets (Sotalol hcl) ..... Take 1/2 tablet by mouth twice daily Eliquis 5 Mg Oral Tablet (Apixaban) .... One tablet twice daily [facility] Cardiology:Echo last year showed: There is moderate enlargement of the left atrium. LA volume is 67 mL. The left atrial volume is moderately abnormal. [facility] Cardiology:BP today: 126/82 P rior BP: 118/68 (05/12/2018) Her updated medication list for this problem includes: Lisinopril 40 Mg Oral Tablet (Lisinopril) ..... One tablet daily Lasix 20 Mg Oral Tablet (Furosemide) ..... Daily Sotalol Hcl 80 Mg Oral Tablet (Sotalol hcl) ..... Half a tab. (40 mg) twice daily [facility] Cardiology:Labs: A lkaline Phosphatase: 155 (05/17/2018) [facility] Cardiology:Labwork ( before Atorvastatin was increased from 40mg to 80mg daily): C HOL: 184 (05/17/2018) LDL: 94 MG/DL (CALC) (05/17/2018) HDL: 72 (05/17/2018) T (05/17/2018) Her updated medication list for this problem includes: Atorvastatin Calcium 80 Mg Oral Tablet (Atorvastatin calcium) ..... Take one tablet daily [facility] Cardiology:Dizziness is well controlled with Meclizine. [facility] Card[facility]:Her updat ed medication list for this problem includes: Sotalol Hcl 80 Mg Oral Tablet (Sotalol hcl) ..... Half a tab. (40 mg) twice daily Eliquis 5 Mg Oral Tablet (Apixaban) .... One tablet twice daily [facility] Cardiology:Her updat ed medication list for this problem includes: Atorvastatin Calcium 40 Mg Oral Tablet (Atorvastatin calcium) ..... One tablet daily Orders: L IPID PANEL (7600) H EPATIC FUNCTION PANEL (87758) [facility]:S/P Revea l removal. Her updated medication list for this problem includes: Sotalol Hcl 80 Mg Oral Tablet (Sotalol hcl) ..... Half a tab. (40 mg) twice daily Eliquis 5 Mg Oral Tablet (Apixaban) .... One tablet twice daily [facility] Cardiology:BP today: 118/68 P rior BP: 142/80 (03/01/2018) Her updated medication list for this problem includes: Lisinopril 40 Mg Oral Tablet (Lisinopril) ..... One tablet daily Lasix 20 Mg Oral Tablet (Furosemide) ..... Daily Sotalol Hcl 80 Mg Oral Tablet (Sotalol hcl) ..... Half a tab. (40 mg) twice daily [facility] Cardiology:Responds well to Mecl izine. [facility] Cardiology followup: Her updated medication list for this problem includes: Sotalol Hcl 80 Mg Oral Tablet (Sotalol hcl) ..... Half a tab. (40 mg) twice daily Eliquis 5 Mg Tabs (Apixaban) .... One tablet twice daily [facility] Cardiology followup: BP today: 142/80 P rior BP: 150/98 (08/31/2017) Her updated medication list for this problem includes: Lisinopril 40 Mg Oral Tablet (Lisinopril) ..... One tablet daily Lasix 20 Mg Oral Tablet (Furosemide) ..... Daily Sotalol Hcl 80 Mg Oral Tablet (Sotalol hcl) ..... Half a tab. (40 mg) twice daily [facility] Cardiology followup: Orders: D evice Removal - SL (*) [facility] Cardiology followup: Orders: C T Head with contrast (CPT-[id number]) [facility] Cardiology Kenan Thakkar MD Cardiology:Pt does n [...] Will restart Lipitor. Kenan Thakkar MD Cardiology:[facility] medication list for this problem includes: [...] ... One tablet twice a day [facility] Cardiology:Not compliant with CP AP. [facility] Cardiology:Denies chest pain. Jus rodarte Hilary Cardiology:BP today: 175/90 P rior BP: 165/90 (02/26/2015) Her updated medication list for this problem includes: Lasix 20 Mg Tabs (Furosemide) ..... Daily Sotalol Hcl 80 Mg Tabs (Sotalol hcl) ..... Half a tab. (40 mg) twice daily [facility] Cardiology:In additi on, Alk Phos was elevated to 153 (upper limit 117). Will hold Atorvastatin. CHOL: 237 (03/14/2013) LDL: 160 (03/14/2013) HDL: 55 (03/14/2013) T (03/14/2013) [facility] Cardiology:BP today: 165/90 P rior BP: 180/95 [...] daily Orders: C OMPREHENSIVE METABOLIC PANEL W/EGFR (28638) L IPID PANEL (7600) T HYROID PANEL [...] scintigraphic evidence of myocardial ischemia or scar. [facility] (06/05/2008) E chocardiogram: TDS.The LV chamber size and wall thickness is normal. Probable Normal LV function. LV EF is estimated at 60%. [facility] (06/05/2008) Orders: Braden KG (CPT-[id number]) Kenan Thakkar MD 2 m [facility] follow-up: H is updated medication [...] scintigraphic evidence of myocardial ischemia or scar. [facility] (06/05/2008) Echocardiogram: TDS.The LV chamber size and wall thickness is normal. Probable Normal LV function. LV EF is estimated at 60%. [facility] (06/05/2008) Kenan Thakkar MD 2 m [facility] follow-up: H is updated medication list for this problem includes: Coreg Cr 80 Mg Cp24 (Carvedilol phosphate) ..... One tab. daily BP today: 140/80 P rior BP: 150/81 (07/09/2008) Kenan Thakkar MD 2 m [facility] follow-up: H is updated medication [...] scintigraphic evidence of myocardial ischemia or scar. [facility] (06/05/2008) Echocardiogram: TDS.The LV chamber size and wall thickness is normal. Probable Normal LV function. LV EF is estimated at 60%. [facility] (06/05/2008) Kenan Thakkar MD FU: Dizziness: [...] One tab. daily Orders: C omplete Echo ([id number]) S tress Test - Nuclear (47017) S lee Study (*) Kenan Thakkar MD [...] completed EKG Kenan Thakkar MD completed CCM Eval Kenan Thakkar MD completed EKG Kenan Thakkar MD completed Loop Recorder Interrogation, Remote Kenan Thakkar MD INTERROGATION EVALUATION REMOTE </30 D ILR SYS completed ICM Interrogation, Remote (Tech) Kenan Thakkar MD INTERROGATION EVAL REMOTE </30 D TECH REVIEW completed SNOMED-CT: [id number] Current Medications Documented Kenan Thakkar MD completed [...] completed EKG Kenan Thakkar MD completed SNOMED-CT: [id number] Current Medications Documented Kenan Thakkar MD completed [...] EVAL REMOTE </30 D TECH REVIEW [facility]: [id number] Current Medications Documented Kenan Thakkar MD completed [...] completed EKG Kenan Thakkar MD completed SNOMED-CT: [id number] Current Medications Documented Kenan Thakkar MD completed [...] REMOTE </30 D TECH REVIEW completed SNOMED-CT: [id number] Current Medications Documented Kenan Thakkar MD completed [...]
--- OUTSIDE RECORDS SUMMARY | 2024-04-04 20:03 | XMS_ITS | Continuity of Care Document ---
Author Organization [facility] Address [address] [place] [address] Phone Care Team Providers Care Green Plumber Name Role Phone Doser Isaak CHAIDEZ Unavailable [...] Date Provider Providers Copied on Encounter [facility], [address] [place], [place] [address], [id number], [place] tel:[phone] [facility] No Information Doser Isaak. [address] [facility] [facility] [address], [place], [place], [id number] , [place]. tel:[phone] [facility], [facility] [address], [place], [place], [id number], [place] tel:[phone] [facility] Pain in left footPain in left ankle and joints of left footOth fracture of left lower leg, init for clos fx 2 Doser Isaak. [address] [place] [address], [place] [address], [place], [place], [id number] , [place]. tel:[phone] Referring Provider: Isaak Patel, [address] [place] [address] [address] [facility], [place], [address] . tel:[phone] [facility], [address] [place] [address], [place], [place], [id number], [place] tel:[phone] [facility] left ankle (chief complaint) Pain in left ankle and joints of left footOth fracture of left lower leg, init for clos fx 1 Doser Isaak. [address] [place] [address], [place] [address], [place], [place], [id number] , [place]. tel:[phone] Referring Provider: Isaak Patel, [address] [place] [address], [place], [address] . tel:[phone] [facility], [address] [place] [address], [place], [place], [id number], [place] tel:[phone] [facility] Follow Up of left ankle (chief complaint) Pain in left footFx of left ankle, initial encounter for closed fxPain in left ankle 1 Doser Isaak. [address] [place] [address], [place] [address], [place], [place], [id number] , [place]. tel:[phone] Referring Provider: Isaak Patel, [address] [place] [address], [place], [address] . tel:[phone] [facility], [address] [place] [address], [place], [place], [id number], [place] tel:[phone] [facility] No Information 1 Doser Isaak. [address] [facility], [place], [place], [address] , [place]. tel:[phone] Referring Provider: Isaak Patel, [address] [facility] [address], [place], [address] . tel:[phone] Office/outpat ient visit,[facility] [place], [address], [place], [place], [id number], tel:[phone] [facility] Left spiral fracture (chief complaint) Pain in left ankleFx of left ankle, initial encounter for closed fx 1 Doser Isaak. [address] [facility], [address], [place], [place], [id number] , [place]. tel:[phone] Referring Provider: Isaak Patel, [address] [facility] [address], [place], [address] . tel:[phone] Family History Family Member Type Diagnosis Age At Onset Brother Problem (finding) Heart Disease Father Problem (finding) Heart Disease Brother Problem (finding) Gout Father Problem (finding) Diabetes Mother Problem (finding) Blood disorder Father Problem (finding) Gout Payers Payer name Insurance type Covered green party ID Authoriza tion(s) Medicare [place] Part B MB [id number] [facility] [id number] Social History Type Description Quantity Date Captured [...]
--- OUTSIDE RECORDS SUMMARY | 2024-04-04 20:03 | XMS_ITS | Continuity of Care Document ---
Author Organization [facility] Address [address] [place] [address] Phone Care Team Providers Care Cytology Laboratory Manager Name Role Phone Bernadine PT, VILLAT, Miranda Unavailable Unavailable Procedures Procedure Date Progress Note Therapeutic Activities Neuromuscular Re-Ed Therapeutic Exercise Hot or Cold Pack Therapeutic Exercise Therapeutic Activities Neuromuscular Re-Ed Hot or Cold Pack Therapeutic Activities Hot or Cold Pack Therapeutic Exercise Neuromuscular Re-Ed Hot or Cold Pack Therapeutic Exercise Neuromuscular Re-Ed PT Evaluation Low Complexity Neuromuscular Re-Ed Advance Directives Directive Yes / No Effective Date File Name No Information Encounters Encounter Description Practice Location Reason(s) For Visit Diagnoses Date Provider Providers Copied on Encounter [facility], [id number], tel:[phone] [place] No Information 2 Bernadine Jean. . [facility], [id number], tel:[phone] [place] No Information 2 Bernadine Jean. . Referring Provider: Isaak Patel, [address] [address], [place], [address]. tel:[phone] [facility], [address] [address], [place], [place], [id number], tel:[phone] [place] No Information 2 Lehnen Miranda. . Referring Provider: Isaak Patel, [address] [address], [place], [address]. tel:[phone] [facility] [address] [address], [place], [place], [id number], tel:[phone] [place] No Information 2 Lehnen Miranad. . Referring Provider: Isaak Patel, [address] [facility] [address], [place], [address]. tel:[phone] [facility], [address] [place] [address], [place], [place], [address], tel:[phone] [place] No Information 1 Lehnen Miranda. . Referring Provider: Isaak Patel, [address] [address], [place], [address]. tel:[phone] [facility] [address] [place] [address], [place], [place], [address], tel:[phone] [place] No Information 1 Lehnen Miranda. . Referring Provider: Isaak Patel, [address] [address], [place], [address]. tel:[phone] Family History Family Member Type Diagnosis Age At Onset No Information Payers Payer name Insurance type Covered green party ID Authoriza tidea(s) Medicare [place] MB [id number] [facility] [id number] Social History Type Description Quantity Date Captured [...]
== END 2024-03-31 15:50 | disposition home or self-care (01) ==
PROVIDERS: Emergency Provider Nurse Practitioner Family; PCP Nurse Practitioner Family
DX: S65.515A Laceration of blood vessel of left ring finger, initial encounter (principal); W26.0XXA Contact with knife, initial encounter; Y93.G1 Activity, food preparation and clean up; Z23 Encounter for immunization; Z79.01 Long term (current) use of anticoagulants
CPT/HCPCS: 12001; 90471; 90715; 99212; G0463

== ENCOUNTER 2024-08-24 10:50 | Outpatient (CLI) | payer MEDICARE, SELFPAY ==
--- NOTE | ~2024-08-24 | XR_ITS ---
AP view of the pelvis and AP and lateral views of the bilateral hips Clinical history: Pain Findings: No acute fracture or dislocation is seen. Osseous alignment is anatomic. There is moderate degenerative change of the medial aspect of both hip joints.. Soft tissues are unremarkable. Impression: Moderate degenerative change at the medial aspect of both hip joints. Reviewed, dictated and finalized at location . Impression: Moderate degenerative change at the medial aspect of both hip joints.
--- NOTE | ~2024-08-24 | XR_ITS ---
AP and lateral views of the pelvis CLINICAL HISTORY: Sacroiliitis FINDINGS: No fracture or dislocation seen. There is mild degenerative change of both hip joints. Ther e is minimal degenerative change of the SI joints. There is advanced degenerative disc narrowing at L5-S1. There is 9 mm anterolisthesis of L4 over L5 w ith advanced facet arthropathy at the lower lumbar spine. Soft tissues are unremarkable. IMPRESSION: Mild bilateral hip joint degenerative change. Advanced degenerative change of the lower lumbar spine, with 9 mm anterolisthesis of L4 over L5. Reviewed, dictated and finalized at location M. IMPRESSION: Mild bilateral hip joint degenerative change. Advanced degenerative change of the lower lumbar spine, with 9 mm anterolisthes is of L4 over L5.
== END 2024-08-24 10:51 | disposition home or self-care (01) ==
LOC: MICIMG 10:54
PROVIDERS: PCP Nurse Practitioner Family; Visit Provider Physical Medicine & Rehabilitation Pain Medicine
DX: M46.1 Sacroiliitis, not elsewhere classified (principal); M25.552 Pain in left hip; M25.551 Pain in right hip
CPT/HCPCS: 72190; 73521

== ENCOUNTER 2024-09-18 14:57 | Outpatient (CLI) | payer MEDICARE, SELFPAY ==
--- NOTE | ~2024-09-18 | MM_ITS ---
EXAMINATION: MM screening [facility] BI w nathalia HISTORY: Screening mammogram TECHNIQUE: Craniocaudal and mediolateral oblique 3-D tomosynthesis images were obtained and synthetic 2-D images were generated. CAD analysis was submitted and interpreted. COMPARISON: 02/23/2022 through 03/13/2007 BREAST PARENCHYMAL COMPOSITION: The breasts are almost entirely fatty. FINDINGS: There is no evidence of suspicious mass, calcification, or architectural distortion to sug gest malignancy in either breast. There has been no suspicious interval change. Radiopaque pacemaker battery overlies and partially obscures the left axilla. IMPRESSION: 1. No mammographic evidence of malignancy. 2. Recommend routine screening mammography in one year. BI-RADS Category 1: Negative Reviewed, dictated and finalized at location B.
== END 2024-09-18 14:58 | disposition home or self-care (01) ==
LOC: MICIMG 14:58
PROVIDERS: PCP Nurse Practitioner Family; Visit Provider Obstetrics & Gynecology
DX: Z12.31 Encounter for screening mammogram for malignant neoplasm of breast (principal)
CPT/HCPCS: 77063; 77067